=== PATIENT | male | born 1965 | race Caucasian/White ===

== ENCOUNTER 2019-09-18 15:35 | Outpatient (CLI) | payer BC, SELFPAY ==
[2019-09-18 15:58] LABS: Basophils % 0.5 %; Eosinophils # 0.1 10^3/uL (0.0-0.8); Eosinophils % 1.6 %; Hematocrit 42.3 % (42.0-52.0); Hemoglobin 14.4 g/dL (11.7-16.6); Lymphocytes # 1.2 10^3/uL (0.8-4.8); Lymphocytes % 21.9 %; Mean Corpuscular Hemoglobin 31.4 pg (28.0-34.0); Mean Corpuscular Volume 92.4 fL (80-94); Mean Platelet Volume 9.8 fL (7.4-10.4); Monocytes # 0.4 10^3/uL (0.2-0.9); Monocytes % 7.1 %; Neutrophils # 3.9 10^3/uL (1.8-7.7); Neutrophils % 68.7 %; Nucleated Red Blood Cells % 0 %; Platelet Count 167 10^3/cmm (130-400); Red Blood Count 4.58 10^6/uL (4.1-5.3); Red Cell Distribution Width 11.9 % (12.1-15.1); White Blood Count 5.6 10^3/uL (4.0-10.0)
[2019-09-18 16:39] LABS: Anion Gap 15.6 (5-19); Blood Urea Nitrogen 12 mg/dL (6-20); Calcium 9.8 mg/Dl (8.6-10.0); Carbon Dioxide 28 mmol/L (22-29); Chloride 101 mmol/L (98-107); Glomerular Filtration Rate 175.3 mL/min (90-130); Glucose 272 mg/dL (74-109); Iron 63 ug/dL (59-158); Percent Saturation 19.5 % (20-50); Potassium 3.6 mmol/L (3.5-5.1); Sodium 141 mmol/L (136-145); Thyroid Stimulating Hormone 0.17 uIU/mL (0.27-4.20); Total Iron Binding Capacity 322 mg/dL; Unsaturated Iron Binding 259 ug/dL (112-347); Vitamin B12 1211 pg/mL (232-1245)
[2019-09-18 17:39] LABS: Folate Level 9.8 ng/mL (4.5-32.2)
== END 2019-09-18 15:36 | disposition home or self-care (01) ==
PROVIDERS: Family Provider Internal Medicine; PCP Internal Medicine; Visit Provider Internal Medicine
DX: C15.9 Malignant neoplasm of esophagus, unspecified (principal); D50.9 Iron deficiency anemia, unspecified; E03.9 Hypothyroidism, unspecified
CPT/HCPCS: 36415; 80048; 82607; 82746; 83540; 83550; 84443; 85025

== ENCOUNTER → 2019-10-02 10:02 | Outpatient (BNVA) | payer BC, SELFPAY | PROVIDERS: Family Provider Internal Medicine; PCP Internal Medicine; Visit Provider Urology | DX: B37.49 Other urogenital candidiasis (principal); R33.9 Retention of urine, unspecified; N30.80 Other cystitis without hematuria | CPT/HCPCS: 81001 ==

== ENCOUNTER → 2019-10-14 10:59 | Outpatient (BNVA) | payer BC, SELFPAY | PROVIDERS: Family Provider Internal Medicine; PCP Internal Medicine; Visit Provider Urology | DX: N30.80 Other cystitis without hematuria (principal); N20.9 Urinary calculus, unspecified; B37.49 Other urogenital candidiasis | CPT/HCPCS: 81001 ==

== ENCOUNTER → 2019-11-13 08:16 | Outpatient (BNVA) | payer BC, SELFPAY | PROVIDERS: Family Provider Internal Medicine; PCP Internal Medicine; Visit Provider Urology | DX: N30.80 Other cystitis without hematuria (principal); N20.0 Calculus of kidney; B37.49 Other urogenital candidiasis; R33.9 Retention of urine, unspecified | CPT/HCPCS: 81001 ==

== ENCOUNTER → 2019-12-17 15:51 | Outpatient (BNVA) | payer BC, SELFPAY | PROVIDERS: Family Provider Internal Medicine; PCP Internal Medicine; Visit Provider Nurse Practitioner Family | DX: N30.80 Other cystitis without hematuria (principal) | CPT/HCPCS: 80053; 87086; 87106 ==

== ENCOUNTER → 2020-01-14 09:07 | Outpatient (BNVA) | payer BC, SELFPAY | PROVIDERS: Family Provider Internal Medicine; PCP Internal Medicine; Visit Provider Urology | DX: N30.80 Other cystitis without hematuria (principal); B37.49 Other urogenital candidiasis; E11.9 Type 2 diabetes mellitus without complications; N20.0 Calculus of kidney | CPT/HCPCS: 81001 ==

== ENCOUNTER → 2020-02-18 08:08 | Outpatient (BNVA) | payer BC, SELFPAY | PROVIDERS: Family Provider Internal Medicine; PCP Internal Medicine; Visit Provider Urology | DX: N30.80 Other cystitis without hematuria (principal); N20.0 Calculus of kidney; B37.49 Other urogenital candidiasis; E11.9 Type 2 diabetes mellitus without complications | CPT/HCPCS: 81001 ==

== ENCOUNTER 2020-02-24 05:57 | Day surgery (SDC) | payer BC, SELFPAY ==
[2020-02-21 12:56] VITALS: BMI 29.3
[2020-02-24] VITALS (9 sets, daily range): BP systolic 146–157; BP diastolic 84–98; PULSE 55–80; RESP 16–20; TEMP 36.2; O2SAT 94–99
--- NOTE | 2020-02-24 | SCC_ITS ---
Procedure Done: Placement of PowerPort in the left subclavian vein 47.1 seconds of fluoroscopic guidance, for a cumulative dose of 7.37 mGy, was provided to Dr. Giron by the radiology department. C-arm images of the chest were saved for the patient's permanent record. [facility]
[2020-02-24] MEDS: sodium chloride 0.9% 1,000 ML 30 ML IV (06:23)
[2020-02-24 06:25] LABS: Glucose Point of Care 111 mg/dL (70-110)
--- NOTE | 2020-02-24 06:26 | ANES.PREANE2 ---
Pre-Anesthetic Assessment Pre-Anesthetic Assessment: Height/Weight: Height 1.91 m Weight 106.594 kg Temp Pulse Resp BP Pulse Ox 97.2 F L 55 L 18 152/97 96 02/24/20 06:10 02/24/20 06:10 02/24/20 06:10 02/24/20 06:10 02/24/20 06:10 Preop Diagnosis: Esophageal cancer Proposed Procedure: Operation Date: 02/24/20 07:00 Proposed Procedures p Portacath Placement 22874 Z85.01(Not Applicable) - Michael Giron MD Last intake: Intake Last Liquid Date 02/23/20 Last Liquid Time 23:30 Last Solid Date 02/23/20 Last Solid Time 23:30 Social: Social History: No alcohol and No tobacco Exam: Pre-Anes Outpt Exam: alert, oriented x 3, clear to auscultation bilaterally and regular rate & rhythm Airway: Submandibular: WNL Cervical ROM: WNL MP: 2 Dentition: Other (teeth ok) History/ROS: No significant history except as noted Pulmonary: Pulmonary: Sleep apnea CV/HEM: CV/HEM: HTN : : UTI Hepatic: Hepatic: None reported GI: GI: GERD Comments: esophageal ca Metabolic: Metabolic: DM and Hyperlipidemia Musc/skel: Musc/skel: None reported Neuropsych: Neuropsych: Anxiety and Depression Anesthetic Plan: ASA status: 3 Anesthesia: Anesthesia Evaluation and MAC Risk of > 500 ml blood loss (7ml/kg in children): No Meds/Allergies Current Medications: Current Medications Generic Name Dose Route Start Last Admin Trade Name Freq PRN Reason Stop Dose Admin Sodium Chloride 1,000 mls @ 30 ml s/hr 02/24/20 06:15 02/24/20 06:23 Sodium Chloride 0.9% IV 02/25/20 06:14 30 mls/hr .Q24H ROSAS Administration PFSH Anesthesia PFSH: Medical History Acquired hypothyroidism Calcium urolithiasis Candidal UTI (urinary tract infection) Cystitis cystica Diabetes mellitus Esophageal cancer BOTTOM 1/3 OF ESOPHAGUS REMOVED Essential (primary) hypertension Hypertriglyceridemia Hypogonadism Incomplete bladder emptying Microcytic anemia YARED on CPAP Reactive depression Renal calculus, right Surgical History H/O: vasectomy History of esophageal surgery removal of part of esophagus History of esophagogastroduodenoscopy (EGD) Hx of colonoscopy S/P cataract surgery S/P ureteral stent placement ESWL S/P wrist surgery Family History Father Heart disease Mother Hypertension Recurrent urinary tract infection Dementia Other Diabetes Social History Smoking and tobacco status: never smoked Quit status (tobacco): not considering quitting Alcohol intake: never Adopted: No Caregiver/support person: No Lives independently: No Household members: spouse Housing: House Marital status: Current occupational status: employed History of recent travel: No Data Anesthesia Other Labs: Laboratory Results - last 48 hr 02/24/20 06:22 POC Glucose 111 Cardiac Studies: No Data to Display
--- NOTE | 2020-02-24 07:13 | SC_ITS ---
NOTE: Report was unsigned for reason: Order was edited. Original Signature date and time was: 02/24/2020 @0830 WS: [id number] C-ARM RADIOGRAPHS CHEST; 5 IMAGES HISTORY: port placement COMPARISON: None available. Intraoperative imaging during Port-A-Cath placement. LEFT subclavian Port-A-Cath with tip in the distal SVC. MTD SC/C-arm FL for Pacemaker IMPRESSION: Intraoperative imaging during Port-A-Cath placement.
--- NOTE | 2020-02-24 07:29 | W.PM.OPSUD ---
Surgery/Procedure H&P Update DATE OF PROCEDURE: February 24, 2020 DATE H&P PERFORMED: 02/21/20 H&P UPDATE INFORMATION: I have reviewed H&P completed within last 30 days, I have examined patient prior to procedure and No changes to prior documentation PREOP DIAGNOSIS: Esophageal cancer PLANNED PROCEDURE: Operation Date: 02/24/20 07:00 Proposed Procedures p Portacath Placement 04872 Z85.01(Not Applicable) - Michael Giron MD
[2020-02-24] MEDS: lidocaine 1% INJ 20 mL IM (07:57)
[2020-02-24] MEDS: heparin, porcine 1,000 unit/mL INJ 10 mL 10000 UNIT INJECTION (07:58)
--- NOTE | 2020-02-24 08:24 | P.OP_ITS ---
Operative Report Date of procedure: February 24, 2020 Pre-op Diagnosis: Esophageal cancer Post-op diagnosis: same Procedure Done: Placement of PowerPort in the left subclavian vein Fluoroscopic guidance and interpretation for placement of catheter Pathology: none sent Surgeon: Michael Giron Anesthesia: General Estimated blood loss (mL): 10 Condition: stable Disposition: PACU Procedure: The patient was taken to the Operating Room and the chest and neck bilaterally were prepped and draped in a sterile manner after the antibiotic had been administered and shoulder rolls had been placed. A total of 10 mL of 1% lidocaine with 0.5% Marcaine was infiltrated under the clavicle on the left side at the site of the planned entry into the subclavian vein. An introducer needle was then used to access the subclavian vein under the clavicle and after with drawing blood syringe was removed and a guidewire passed under fluoroscopy into the superior vena cava. The site of the planned port was then marked on the chest and a 15 blade was used to make a 3 cm skin incision this was extended into the subcutaneous tissue using electrocautery and a subcutaneous pocket over the pectoralis fascia was created 2-0 Vicryl suture was used to suture the port to the pectoral fascia in the pocket on 3 sides. The catheter, after having been flushed with hep saline, was attached to the tunneler and a tunnel created between the port site and the subclavian vein en try site. Under fluoroscopy the dilator sheath was passed over the guidewire into the proximal superior vena cava. The inner dilator was removed and the sheath left behind and~ the catheter was introduced through the peel-away sheath with the tip in the superior vena cava. The peel-away sheath was removed. The proximal end of the catheter was cut to the right size and was attached to the port. Using a Mackenzie needle the port was accessed, it withdrew blood easily and flushed easily. A final 5cc of heparin was used to flush the PowerPort. The subcutaneous tissue was approximated using interrupted 3-0 Vicryl sutures and the skin at the introducer site and the port site was closed using subcuticular running 4-0 Monocryl sutures. Surgical glue was applied and the patient was stable throughout the procedure. Fluoroscopic guidance and interpretation was performed for introduction of the guidewire in the left subclavian vein, passage of dilator and placement of catheter tip in the distal superior vena cava.
--- NOTE | 2020-02-24 08:30 | SUR.PHASEI ---
0882 PT TO PACU SLEEPY WITH GOOD RESP , AWAKES TO VOICE BUT QUICKLY BACK TO SLEEP, VSS
--- NOTE | 2020-02-24 08:35 | SUR.PHASEI ---
PT MORE AWAKE, VERBALLY DENIES PAIN AND NAUSEA, VSS PT NOW ON RA TRIAL.
== END 2020-02-24 09:19 | disposition home or self-care (01) ==
PROVIDERS: PCP Internal Medicine; Visit Provider Surgery
PROC: (CPT 36561; principal; 2020-02-24 07:00)
DX: C15.9 Malignant neoplasm of esophagus, unspecified (principal); I10 Essential (primary) hypertension; K21.9 Gastro-esophageal reflux disease without esophagitis; E11.9 Type 2 diabetes mellitus without complications; E78.5 Hyperlipidemia, unspecified; E03.9 Hypothyroidism, unspecified; G47.33 Obstructive sleep apnea (adult) (pediatric); Z79.82 Long term (current) use of aspirin; Z79.4 Long term (current) use of insulin
CPT/HCPCS: 36561; 12345; 36416; 76000; 77001; 82962; C1788; J0330; J0690; J1644; J2001; J2250; J2405; J2704; J2765; J3010; J3490; J7030

== ENCOUNTER 2020-02-25 10:59 | Outpatient (CLI) | payer BC, SELFPAY ==
--- NOTE | 2020-02-26 07:31 | ONC FU_ITS ---
Dr. Kearns Patient Follow-Up Note Patient: Ricky Flores Unit #: [id number]: [id number] Dicatated By: Jurgen Kearns M.D.Date of Visit:Feb 25, 2020 Onc Med Follow-up/Prog Note Chief Complaint: Esophageal cancer. History of Present Illness: This is a 54 year-old man with well-differentiated adenocarcinoma of the distal esophagus, initially stage IIIB (ypT3, ypN1, M0), but with subsequent progression to stage IV (M1). He had presented with iron deficiency anemia and weight loss. He underwent EGD and colonoscopy on 06/15/2018. The colonoscopy showed 2 small sessile polyps in the mid transverse colon, both of which were removed endoscopically. The EGD showed a circumferential and partially obstructing, large size, malignant appearing mass in the lower third esophagus. The stomach and duodenum appeared unremarkable. Biopsy of the esophageal mass showed well-differentiated infiltrating adenocarcinoma with papillary histologic pattern. The colon showed adenomatous polyp fragments. Staging CT scans of the chest, abdomen, and pelvis on 06/15/2018 showed increased soft tissue thickening suggested at the level of the gastroesophageal junction, estimated at 5 cm in width and 4 cm in depth. There was mild thickening of the wall of the distal esophagus. A superior right paratracheal lymph node measured 1.9 x 2.8 cm. The abdomen showed 2 adjacent perigastric lymph nodes near the greater curvature, located between the stomach and pancreas, measuring 1.7 and 2.2 cm. There was no other intra-abdominal or retroperitoneal adenopathy noted, and there was no evidence of other metastatic disease. Staging PET/CT on 06/23/2018 showed a 3 cm hypermetabolic segment of the distal esophagus with SUV 15.0, consistent with primary malignancy. A 2.2 cm gastrohepatic lymph node had SUV 4.1, consistent with local metastatic disease. There was no evidence for other metastatic involvement. The superior right paratracheal lymph node was noted to be FDG negative, consistent with benign disease. He underwent definitive treatment through the [facility]. His treatment included neoadjuvant chemoradiation utilizing weekly carboplatin/Taxol followed by Mike Rusty esophagectomy on 10/30/2018. I do not have the complete pathology report available, but the final staging was IIIB (ypT3, ypN1, M0). He was then followed on observation/expectant management. His other medical illnesses include hypertension, hypertriglyceridemia, type II diabetes, hypothyroidism, androgen deficiency, obstructive sleep apnea, degenerative arthritis, and glaucoma. He also has history of diverticulitis and a history of recurrent episodes of nephrolithiasis. His other surgeries include cataract excision from the left eye, carpal tunnel release on the left, vasectomy, and extracorporeal shockwave lithotripsy. He underwent right total hip arthroplasty on 07/29/2019. He is a non-smoker, but he had chewed tobacco for 35 years, estimated 2 to 3 cans/day. He does not drink alcohol. INTERIM HISTORY: His surveillance CT scans of the chest, abdomen, and pelvis at [facility] [[email or web address]] on 01/15/2020 showed interval development of an 8 mm pulmonary nodule in the left major fissure and a 1.1 cm left lower lobe medial basal segment nodule, concerning for metastatic disease. A few other smaller nodules measuring 3 mm or less were also seen in the left lower lobe. There was interval enlargement of the right upper paratracheal lymph node measuring 2 cm. He then underwent EBUS with FNA biopsy of the right paratracheal lymph node on 02/05/2020. Pathology showed metastatic adenocarcinoma consistent with esophageal primary. He had medical oncology follow-up with Dr. Kulwant Knight on 02/13/2020. He was recommended to undergo placement of Port-A-Cath venous access device and to begin a course of chemotherapy with modified FOLFOX. A [facility] One next generation sequencing study also was requested, and those results are not yet available. Repeat PET/CT on 02/22/2020 showed interval development of 2 malignant lymph nodes, the dominant lesion in the right paratracheal area measuring 2.9 cm with SUV 6.8. The second was a lesion in the right cervical level IV territory measuring 2.6 x 1.6 cm, SUV 4.0. There were no other sites of abnormal FDG uptake on that study. He is seen now for follow-up, as he would like to continue his further treatment locally if possible. He says he feels fine. His energy is not bad, and he pretty much has normal activity. His ECOG score is 0. He does not eat as much as he used to, but he has had a weight gain in the range of 25 pounds compared to his lowest point after surgery. He does not have fever or night sweats. He has just occasional cough. He does not have shortness of breath or chest pain. He has had to sleep upright since his esophagectomy, and he does get acid reflux if he falls off his pillow. He has no other GI complaints, and he has no complaints with bladder function. He does have some joint pain, mainly in the hands. His hip has not been bothering him since the surgery. He does not complain of headache or dizziness, and he has no focal neurologic symptoms. Medications: Bystolic 1 Tablet (of 10 mg) Oral daily, Jardiance 1 Tablet (of 25 mg) Oral daily, Levothyroxine Sodium 1 Tablet (of 200 mcg) Oral daily, MetFORMIN HCl 1 Tablet (of 1000 mg) Oral b.i.d., Nitrofurantoin Macrocrystal 1 Capsule (of 100 mg) Oral b.i.d., Pantoprazole Sodium 1 Tablet (of 40 mg) Tablet, enteric coated Oral daily, Tamsulosin HCl 1 Cartridge (of 0.4 mg) Capsule Oral b.i.d., Timolol Maleate Solution Ophthalmic, Ultra [place] 3 1 Capsule (of 952 mg) Oral daily Allergies: Morphine Sulfate Review of Systems: Constitutional - His energy is not bad. He has pretty much normal activity. He does not eat as much as he used to, but he has gained about 25 pounds from his lowest point after surgery. He does not have fever or night sweats. ECOG score is 0, ENMT - No sinus congestion/drainage. No mouth sores. No sore throat or difficulty swallowing, Hematologic/Lymphatic - No abnormal bruising or bleeding, Respiratory - No shortness of breath. He has just occasional cough. No pleuritic pain or hemoptysis, Cardiovascular - No angina pain. No palpitations, Gastrointestinal - No nausea or vomiting. He has heartburn if he falls off his pillow at night. No diarrhea or constipation. No blood in the stool or black stools, Genitourinary (M) - No dysuria or hematuria. No urinary frequency. No urgency or incontinence, Musculoskeletal - He has some joint pain, mainly in the hands, Integumentary - No skin complications, Neurologic - No headache or dizziness. No numbness or tingling. No other focal neurologic symptoms, Psychiatric - He has some anxiety/depression. No insomnia. Vital Signs: Performed on Feb 25, 2020 11:32 Height - 75.00 in Weight - 237.0 lbs (LOW) BSA - 2.36 sq.m BMI - 29.62 Temperature - 97.8 F (LOW) Pulse - 57 /min (LOW) Respiration - 24 /min BP - 171/90 mm(hg) (HIGH) O2 Sat - 96 % Pain - 0 Physical Examination: Constitutional - He looks good generally, Eyes - Sclerae nonicteric. Conjunctivae clear, ENMT - No lesions noted in the oral cavity, Hematologic/Lymphatic - No cervical, clavicular, or axillary adenopathy, Respiratory - Lungs are clear with good air movement bilaterally, Cardiovascular - Heart rhythm is regular. There is no murmur, gallop or rub noted, Abdomen - Soft and non-tender. Liver and spleen are not enlarged. There is no abdominal mass or ascites noted and there is no inguinal adenopathy, Extremities - No edema, Neurologic - No focal neurologic deficits noted. Impression: 1. Patient with well differentiated infiltrating adenocarcinoma involving the lower third of the esophagus, initially stage IIIB (ypT3, ypN1, M0), but with subsequent progression to stage IV (M1), with involvement in the right paratracheal lymph node confirmed by EBUS/FNA biopsy on 02/05/2020. 2. His previous treatment included neoadjuvant chemoradiation utilizing weekly carboplatin/Taxol followed by Mike Rusty esophagectomy on 10/30/2018. His other medical illnesses include: 3. Hypertension. 4. Hyperlipidemia. 5. Type II diabetes. 6. Obstructive sleep apnea. 7. Degenerative arthritis. 8. He has posttraumatic glaucoma of the left eye. 9. He has a history of recurrent episodes of nephrolithiasis. 10. He has a history of diverticulitis. Plan: I will review the PET/CT with the radiologist and I also request this from [facility] [[email or web address]] for review. However, with documented metastatic involvement in the right paratracheal lymph node and suspected involvement in a right level IV cervical lymph node, some form of systemic therapy will be the appropriate treatment. Specific recommendations will be determined on the basis of the [facility] study, results of which should be available within the next week. Signed By: Jurgen Kearns M.D. <<Signature on File>>
== END 2020-02-25 11:00 | disposition home or self-care (01) ==
LOC: ONCMED 11:02
PROVIDERS: PCP Internal Medicine; Visit Provider Internal Medicine Medical Oncology
DX: C15.5 Malignant neoplasm of lower third of esophagus (principal); C77.1 Secondary and unspecified malignant neoplasm of intrathoracic lymph nodes; I10 Essential (primary) hypertension; E78.5 Hyperlipidemia, unspecified; E11.9 Type 2 diabetes mellitus without complications; G47.33 Obstructive sleep apnea (adult) (pediatric); M19.90 Unspecified osteoarthritis, unspecified site; Z92.21 Personal history of antineoplastic chemotherapy; Z92.3 Personal history of irradiation
CPT/HCPCS: 99215

== ENCOUNTER 2020-03-11 11:21 | Outpatient (CLI) | payer BC, SELFPAY | END 2020-03-11 11:22 | disposition home or self-care (01) | LOC: ONCMED 11:24 | PROVIDERS: PCP Internal Medicine; Visit Provider Internal Medicine Medical Oncology | DX: C15.5 Malignant neoplasm of lower third of esophagus (principal); I10 Essential (primary) hypertension; E78.5 Hyperlipidemia, unspecified; E11.9 Type 2 diabetes mellitus without complications; G47.33 Obstructive sleep apnea (adult) (pediatric); M19.90 Unspecified osteoarthritis, unspecified site; H40.89 Other specified glaucoma; N20.0 Calculus of kidney; K57.92 Diverticulitis of intestine, part unspecified, without perforation or abscess without bleeding | CPT/HCPCS: 36415 ==

== ENCOUNTER 2020-03-31 06:50 | Outpatient (RCR) | payer BC, SELFPAY ==
--- NOTE | 2020-03-27 20:39 | ONC FU_ITS ---
Dr. Kearns Patient Follow-Up Note Patient: Ricky Flores Unit #: [id number]: [id number] Dicatated By: Jurgen Kearns M.D.Date of Visit:Mar 27, 2020 Onc Med Follow-up/Prog Note Chief Complaint: Esophageal cancer. History of Present Illness: This is a 54 year-old man with well-differentiated adenocarcinoma of the distal esophagus, initially stage IIIB (ypT3, ypN1, M0), but with subsequent progression to stage IV (M1). He had presented with iron deficiency anemia and weight loss. He underwent EGD and colonoscopy on 06/15/2018. The colonoscopy showed 2 small sessile polyps in the mid transverse colon, both of which were removed endoscopically. The EGD showed a circumferential and partially obstructing, large size, malignant appearing mass in the lower third esophagus. The stomach and duodenum appeared unremarkable. Biopsy of the esophageal mass showed well-differentiated infiltrating adenocarcinoma with papillary histologic pattern. The colon showed adenomatous polyp fragments. Staging CT scans of the chest, abdomen, and pelvis on 06/15/2018 showed increased soft tissue thickening suggested at the level of the gastroesophageal junction, estimated at 5 cm in width and 4 cm in depth. There was mild thickening of the wall of the distal esophagus. A superior right paratracheal lymph node measured 1.9 x 2.8 cm. The abdomen showed 2 adjacent perigastric lymph nodes near the greater curvature, located between the stomach and pancreas, measuring 1.7 and 2.2 cm. There was no other intra-abdominal or retroperitoneal adenopathy noted, and there was no evidence of other metastatic disease. Staging PET/CT on 06/23/2018 showed a 3 cm hypermetabolic segment of the distal esophagus with SUV 15.0, consistent with primary malignancy. A 2.2 cm gastrohepatic lymph node had SUV 4.1, consistent with local metastatic disease. There was no evidence for other metastatic involvement. The superior right paratracheal lymph node was noted to be FDG negative, consistent with benign disease. He underwent definitive treatment through the [facility]. His treatment included neoadjuvant chemoradiation utilizing weekly carboplatin/Taxol followed by Mike Rusty esophagectomy on 10/30/2018. I do not have the complete pathology report available, but the final staging was IIIB (ypT3, ypN1, M0). He was then followed on observation/expectant management. His other medical illnesses include hypertension, hypertriglyceridemia, type II diabetes, hypothyroidism, androgen deficiency, obstructive sleep apnea, degenerative arthritis, and glaucoma. He also has history of diverticulitis and a history of recurrent episodes of nephrolithiasis. His other surgeries include cataract excision from the left eye, carpal tunnel release on the left, vasectomy, and extracorporeal shockwave lithotripsy. He underwent right total hip arthroplasty on 07/29/2019. He is a non-smoker, but he had chewed tobacco for 35 years, estimated 2 to 3 cans/day. He does not drink alcohol. INTERIM HISTORY: His surveillance CT scans of the chest, abdomen, and pelvis at [facility] on 01/15/2020 showed interval development of an 8 mm pulmonary nodule in the left major fissure and a 1.1 cm left lower lobe medial basal segment nodule, concerning for metastatic disease. A few other smaller nodules measuring 3 mm or less were also seen in the left lower lobe. There was interval enlargement of the right upper paratracheal lymph node measuring 2 cm. He then underwent EBUS with FNA biopsy of the right paratracheal lymph node on 02/05/2020. Pathology showed metastatic adenocarcinoma consistent with esophageal primary. He had medical oncology follow-up with Dr. Kulwant Knight on 02/13/2020. He was recommended to undergo placement of Port-A-Cath venous access device and to begin a course of chemotherapy with modified FOLFOX. A [facility] next generation sequencing study also was requested, biut there was insufficient material available to complete the study. A repeat PET/CT on 02/22/2020 showed interval development of 2 malignant lymph nodes, the dominant lesion in the right paratracheal area measuring 2.9 cm with SUV 6.8. The second was a lesion in the right cervical level IV territory measuring 2.6 x 1.6 cm, SUV 4.0. There were no other sites of abnormal FDG uptake on that study. I had seen for a followup visit on 02/25/2020. At that point I had requested a [facility] One next generation sequencing study by liquid biopsy. Those results have just become availabe. 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 There were no actionable mutations reported. He is seen now to discuss treatment options. Medications: Bystolic 1 Tablet (of 10 mg) Oral daily, Fluconazole 1 Tablet (of 100 mg) Oral daily, Gabapentin 1 Capsule (of 300 mg) Oral b.i.d., Glimepiride 1 Tablet (of 4 mg) Oral b.i.d., HumaLOG 200 Units (of 100 Units/mL) Subcutaneous PRN, Lantus 40 Units (of 100 Units/mL) Subcutaneous daily, Levothyroxine Sodium 1 Tablet (of 175 mcg) Oral daily, Nitrofurantoin Macrocrystal 1 Capsule (of 100 mg) Oral daily, Pantoprazole Sodium 1 Tablet (of 40 mg) Tablet, enteric coated Oral daily, Tamsulosin HCl 1 Cartridge (of 0.4 mg) Capsule Oral b.i.d., Timolol Maleate 1 Drop(s) (of 0.5 %) Solution Ophthalmic daily Allergies: Morphine Sulfate Vital Signs: Performed on Mar 27, 2020 10:23 Height - 75.00 in Weight - 233.2 lbs (LOW) BSA - 2.34 sq.m BMI - 29.15 Temperature - 97.7 F (LOW) Pulse - 64 /min Respiration - 18 /min BP - 160/80 mm(hg) (HIGH) O2 Sat - 96 % Pain - 0 Impression: 1. Patient with well differentiated infiltrating adenocarcinoma involving the lower third of the esophagus, initially stage IIIB (ypT3, ypN1, M0), but with subsequent progression to stage IV (M1), with involvement in the right paratracheal lymph node confirmed by EBUS/FNA biopsy on 02/05/2020. 2. His previous treatment included neoadjuvant chemoradiation utilizing weekly carboplatin/Taxol followed by Mike Rusty esophagectomy on 10/30/2018. His other medical illnesses include: 3. Hypertension. 4. Hyperlipidemia. 5. Type II diabetes. 6. Obstructive sleep apnea. 7. Degenerative arthritis. 8. He has posttraumatic glaucoma of the left eye. 9. He has a history of recurrent episodes of nephrolithiasis. 10. He has a history of diverticulitis. His staging PET/CT showed uptake in the known involved right paratracheal lymph node and an additional area of uptake in a right cervical level IV territory node measuring 2.6 x 1.6 cm, SUV 4.0. His next generation sequencing study by liquid biopsy showed no actionable mutations. Plan: I reviewed the PET/CT results and we discussed the clinical implications. In the absence of a targetable mutation, the standard treatment would be a trial of second line chemotherapy. I would use a modified FOLFOX regimen, as previously recommended, or oxaliplatin/Xeloda. I reviewed anticipated side effects with the chemotherapy, including the expected neuropathy with oxaliplatin. He questions whether there may still be an option for local therapy, with either surgery or radiation. While surgery is clearly not an option, I would consider radiation to the involved area if it would be technically feasible from the standpoint of not overlapping his previous radiation field. To that end I will plan to review the PET/CT with the radiation oncologist and I will arrange for a referral if deemed appropriate. In the meantime, I also will check into availability of clinical trial for any of his reported mutations. Face to face time with patient was more than 30 minutes, greater than 50% spent in counseling/discussion. Signed By: Jurgen Kearns M.D. <<Signature on File>>
--- NOTE | 2020-03-31 | CT_ITS ---
Radiation Therapy Planning CT images; total exam DLP: 1491.45 mGy-cm MTDD
--- NOTE | 2020-03-31 18:27 | N.ONRAD NP_ITS ---
Radiation Oncology New Patient Visit Patient: Ricky Flores MR#: [id number] : 1965 Age: 54 Sex: Male Dictated by: Dr. Fiedl Coronado Date of Service: 03/30/2020 Referring Physician(s): Dr. Kearns Diagnosis: C15.5 - malignant neoplasm of lower third of esophagus, Diagnosed 02/25/2020 (active), stage x, t3(yp), n1(yp), m0, g1 and C77.1 - secondary and unspecified malignant neoplasm of intrathoracic lymph nodes, Diagnosed 02/25/2020 (active). 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 He was initially treated with neoadjuvant chemoradiation therapy using weekly carbotaxol concurrent with radiation to a total dose of 50.4 Gy in 28 fractions followed by [facility] Esophagectomy (10/30/2018). The patient has biopsy-proven disease persistence in a mediastinal 2R node, FDG avid disease in the right level 4 neck as well as the 2R node (PET/CT 02/22/2020). A CT of the chest completed one month prior to the PET/CT revealed concern for an 8 mm nodule in the left major fissure, an 1.1 cm nodule in the left medial basal segment and a few sub centimeter nodules in the posterior basal left lower lobe, but radiotracer was not observed in these areas. Planned future radiographic surveillance in addition to 2R and right neck level IV: Watch for nodules in the left major fissure, left medial basal segment, and posterior left lower lobe. Purpose of Visit: Discuss the role of further radiotherapy with palliative or curative intent. 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 He was initially treated with neoadjuvant chemoradiation therapy using weekly carbotaxol concurrent with radiation to a total dose of 50.4 Gy in 28 fractions followed by [facility] Esophagectomy (10/30/2018). Pathology revealed residual grade 2 adenocarcinoma in the proximal stomach and distal esophagus invading through muscularis propria and into adventitia, focal large vessel invasion, 2 out of 10 lymph nodes positive, positive lymphovascular invasion, no perineural invasion, margins negative yet closest focus was 1.1 mm from the radial margin, HP Malissa negative, & next generation sequencing showed no actionable mutations A follow-up CT of the chest (01/15/2020 versus 04/26/2019) revealed: -) Interval growth of a right upper paratracheal lymph node (from 1.6 cm to 2 cm); -) Interval development of an 8 mm nodule along the left major fissure and interval development of a 1.1 cm nodule in the left medial basal segment; -) And a few new smaller nodules measuring less than 3 mm in the posterior basal left lower lobe. During primary treatment an indeterminate 2R paratracheal lymph node was observed. When this lymph node progressed, a subsequent EBUS with biopsy of the 2R lymph node (02/05/2020) revealed metastatic carcinoma consistent with esophageal primary. A subsequent PET/CT (02/22/2020) revealed FDG avidity within the right upper paratracheal lymph node, and within the lymph node in the right level 4 neck. No other abnormal radiotracer uptake was observed. He is being seen today to discuss radiotherapy options to treat persistent tumor in the 2R lymph node as well as the right level 4 neck. He has recently seen Dr. Kearns who has considered a modified FOLFOX regimen, or oxaliplatin/Xeloda, or Radiation therapy alone. The patient desires to be aggressive, and he requested that we swing for the fences . I reviewed the prior radiation therapy plan from [facility] and there should be no field overlap if careful IMRT planning is executed. In consultation today, the patient has no complaints. Imaging Review: I reviewed the radiographic images discussed above. Current Medications: Bystolic, fluconazole, gabapentin, glimepiride, humaLOG, lantus, levothyroxine Sodium, nitrofurantoin Macrocrystal, pantoprazole Sodium, tamsulosin HCl, timolol Maleate. Allergies: Morphine Sulfate. Medical History: - Anemia, - degenerative arthritis, - diverticulitis, - glaucoma of the left eye, - hypertension, - hypertriglyceridemia, - hypogonadism, - hypothyroidism, - obstructive sleep apnea, - renal calculi, - type II diabetes. No history of collagen vascular disease. No previous radiation therapy. Surgical History: Cataract excision left eye, eGD and colonoscopy on 06/15/2018, extracorporeal shockwave lithotripsy x 2 in 2011, left carpal tunnel release and vasectomy. Family History: Father is alive having experienced heart disease. Mother is alive. Brother is alive. Brother is alive. Brother is alive. Father has heart disease and is still living at age 87. Mother still living and in good health at age 82. Two brothers have diabetes, and one also has heart disease. Social History: Last screened on 03/27/2020 - Never smoked. Last screened on 03/27/2020 - Never drank. Patient indicated use of the following products: chewing tobacco. Current Complaints / Review of Systems: Constitutional - Complains of lack of appetite. Complains of moderate fatigue. Denies fever, night sweats and change in weight. Eyes - Denies blurred vision and double vision. ENMT - Complains of tinnitus. Denies dysphagia, ear pain, mouth dryness, stomatitis and altered taste. Neck - Denies neck pain and decreased range of motion. Integumentary - Denies rash. Cardiovascular - Denies arrhythmias, chest pain and edema. Respiratory - Denies cough, dyspnea and wheezing. Gastrointestinal - Denies abdominal pain, constipation, diarrhea, heartburn / dyspepsia, melena / GI bleeding, nausea and vomiting. Genitourinary (M) - Denies dysuria, frequency, nocturia and urgency. Musculoskeletal - Complains of joint pain generalized all over. Hands are the worse. Complains of generalized muscle weakness. Denies bone pain. Neurologic - Denies dizziness, abnormal gait and headaches. Endocrine - Complains of Type 2 diabetes. Complains of hypothyroidism. Hematologic/Lymphatic - Denies tender or enlarged lymph nodes.. Vital Signs: Performed on 03/30/2020 2:42 PM BMI - 29.198 kg/m2 (high), Height - 75.00 in, Weight - 233.6 lbs, Temperature - 98.2 f, Pulse - 58, Respiration - 18, O2 Sat - 96 %, Pain - 0 and BP - 154/ 93 mm(hg)(high). Physical Exam: GENERAL:??? The patient is alert, and in no acute distress. HEENT:??? Head is normocephalic. Face is symmetric. External ocular movements are intact. Sclera and conjunctivae are non erythematous. NECK:??? Trachea is midline.??? Thyroid is not enlarged by palpation.??? LYMPH NODES:??? There is no palpable cervical, or supraclavicular, adenopathy bilaterally. LUNGS:??? Clear to auscultation bilaterally. Respiratory movement is unlabored. HEART:??? Regular rate and rhythm. ABDOMEN:??? Soft, nontender, without palpable mass.??? No hepatosplenomegaly. EXTREMITIES:??? No deformities. NEUROLOGIC:??? Gait and station are normal.??? The patient is well coordinated and strength is equal bilaterally. CORE EXTRUDER:??? Cranial nerves II-XII are intact and without focal deficits.??? Psych: Affect is normal. Skin: Cursory review of the skin reveals no obvious lesions concerning for malignancy. Performance Status: 0 - Fully active, able to carry on all predisease activities without restrictions. (ECOG) Pathology: Primary, c15.5 - malignant neoplasm of lower third of esophagus, Diagnosed 02/25/2020 (active) stage x, t3(yp), n1(yp), m0, g1 and Primary, c77.1 - secondary and unspecified malignant neoplasm of intrathoracic lymph nodes, Diagnosed 02/25/2020 (active). Lab: Imaging: See HPI Pain assessment: This patient???s pain was personally assessed by me. This patient requires no adjustments to pain medications at this time. 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 He is status post neoadjuvant chemoradiation therapy followed by [place] [facility]y Esphagectomy (10/2018). The patient has disease persistence in a biopsy proven 2R mediastinal lymph node (not previously treated with radiation) as well as FDG avid right neck level IV adenopathy. He also has radiographic concern for nodules in the left lung, but these were not FDG avid and are thus being closely monitored. Treatment options include systemic options including modified FOLFOX or oxaliplatin/Xeloda, or radiation alone. The patient has an excellent performance status and he desires to be very aggressive. Given the fact that radiation gonzalez do not overlap, and the previous plan demonstrated a planned summation dose of Lung V20 ~ 10%, and bilateral Mean Lung Dose of 6 Gy, we could indeed give high dose palliative radiation therapy for the benefit of local control. We discussed the treatment goals of radiotherapy, alternatives to treatment, prognosis with and without radiation therapy, radiation treatment logistics, and potential acute and late side effects in detail. The patient verbalized understanding of the risks/benefits of radiotherapy and the patient has agreed to proceed as recommended. Therefore the plan is: -) High dose palliation with the intent to render the patient with no evidence of disease for a local control benefit. -) I plan to prescribe a total dose of 50.4 Gy in 28 fractions vs 60 Gy in 30 fractions as tolerated by the patient while respecting normal tissue constraints and accounting for prior dose. Following treatment he may be considered for further systemic therapy. Signed by: 03/31/2020 6:26:34 PM <<Signature on File>> CPT Code: CPT Code:
== END 2020-04-03 23:59 | disposition home or self-care (01) ==
LOC: ONCMED 06:50
PROVIDERS: PCP Internal Medicine; Visit Provider Radiology Radiation Oncology
DX: C15.5 Malignant neoplasm of lower third of esophagus (principal); C77.8 Secondary and unspecified malignant neoplasm of lymph nodes of multiple regions; Z45.2 Encounter for adjustment and management of vascular access device; D50.9 Iron deficiency anemia, unspecified; I10 Essential (primary) hypertension; E78.1 Pure hyperglyceridemia; E11.9 Type 2 diabetes mellitus without complications; E03.9 Hypothyroidism, unspecified; G47.33 Obstructive sleep apnea (adult) (pediatric); M19.90 Unspecified osteoarthritis, unspecified site; H40.9 Unspecified glaucoma; F17.220 Nicotine dependence, chewing tobacco, uncomplicated; Z79.4 Long term (current) use of insulin; Z87.442 Personal history of urinary calculi; Z96.641 Presence of right artificial hip joint; Z92.3 Personal history of irradiation
CPT/HCPCS: 77300; 77301; 77334; 77338; 96523; 99214; 99215; Q9967

== ENCOUNTER → 2020-04-24 11:40 | Outpatient (BNVA) | payer BC, SELFPAY | PROVIDERS: PCP Internal Medicine; Visit Provider Internal Medicine | DX: Z01.812 Encounter for preprocedural laboratory examination (principal) | CPT/HCPCS: 87635 ==

== ENCOUNTER 2020-05-04 05:38 | Outpatient (RCR) | payer BC, SELFPAY ==
--- NOTE | 2020-04-30 | CT_ITS ---
WS: [id number] CT CHEST TECHNIQUE: Contrast enhanced CT of the chest with coronal and sagittal reformatted images. CLINICAL INFORMATION: LEFT MEDIAL BASAL SEGMENT LUNG NODULE COMPARISON: Multiple prior examinations including PET CT February 22, 2020, CT January 15, 2020, CT 04/26/2019 and 01/22/2019. DLP: 1027.[address] scans at [facility] use at least one of these dose optimization techniques: automat ed exposure control; mA and/or kV adjustment per patient size (includes targeted exams where dose is matched to clinical indication); or iterative reconstruction. FINDINGS: Prior postoperative changes of esophagectomy with gastric pull-through. Mild chronic emphysematous ch anges. Patchy groundglass opacities in right lower lobe laterally extending into the super segment ri ght lower lobe. Additional hazy atelectasis in right lower lobe medially. Slight subsegmental atelect asis in the left lower lobe. No focal pneumonia. No pleural fluid. Noncalcified nodular opacity in the left lower lobe medially on the prior outside CT January 15, 2020 has essentially resolved. Only a tiny trace of residual opacity in this area measuring 3 mm Masslike right peritracheal lymphadenopathy measuring 3.8 x 2.7 cm with mild mass effect on the thora cic trachea. Previously on the PET CT February 22, 2020 this measures approximately 2.7 x 2.5 cm. This ap pears progressed today. Prominent left hilar lymph node measuring 12 mm appears unchanged since the p rior PET/CT. A few incidental calcified anterior mediastinal lymph nodes. Proximal main pulmonary arteries are normal. Normal caliber thoracic aorta. No axillary lymphadenopat hy. Diffuse fatty infiltration the liver. Fatty atrophy of the pancreas. Upper abdominal aorta is nor mal. Adrenal glands are normal. Normal thoracic spine. CT/CT chest w con* [id number] IMPRESSION: 1. Prior postoperative changes projecting with gastric pull-through. 2. Masslike right peritracheal lymphadenopathy measuring 3.8 x 2.7 cm with mil d mass effect on the thoracic trachea. Previously on the PET CT February 22, 2020 t his measures approximately 2.7 x 2.5 cm. This appears slightly progressed today . 3. Prominent left hilar lymph node measuring 12 mm appears unchanged since the PET/CT February 22, 2020. 4. Fibrotic appearing nodule in the left lower lobe medially on the outside CT January 15, 2020 has essentially resolved, described above. 5. Patchy hazy groundglass opacities in the right lower lobe likely infectious or inflammatory. 6. Subsegmental atelectasis in the lung bases.
--- NOTE | 2020-04-30 | CT_ITS ---
WS: [id number] CT NECK TECHNIQUE: Contrast-enhanced CT of the neck with coronal and sagittal reformatted images. CLINICAL INFORMATION: METASTATIC ESOPHAGEAL CANCER COMPARISON: Multiple prior examinations including PET CT February 22, 2020 DLP: 843.[address] scans at [facility] use at least one of these dose optimization techniques: automat ed exposure control; mA and/or kV adjustment per patient size (includes targeted exams where dose is matched to clinical indication); or iterative reconstruction. FINDINGS: History of esophageal cancer with gastric pull-through. Heterogeneously enhancing masslike right para tracheal lymphadenopathy also described on the chest CT. Mild mass effect on the trachea. This measur es 3.8 x 2.6 cm with heterogeneous enhancement. Prominent left hilar lymph node measuring 12 mm. Right supraclavicular lymphadenopathy measuring 3.5 x 1.8 CM. Mass effect on the jugular vein. This m easured 2.6 x 1.9 CM on the prior PET/CT. Associated heterogeneous enhancement. Normal parotid glands. Normal submandibular glands. No upper cervical chain lymphadenopathy. Normal t ongue base. Normal parapharyngeal fat. No evidence of supraglottic or glottic mass. Subglottic airway is normal. Normal thyroid gland. Mastoid air cells are well aerated. Retention cyst left maxillary s inus with polypoid mucosal thickening. Partially visualized intracranial contents are normal. CT/CT neck w con* [id number] IMPRESSION: 1. Large heterogeneous enhancing right supraclavicular lymph node progressed s karon the PET/CT measuring 3.5x1.8 cm 2. Masslike right paratracheal lymphadenopathy mild mass effect on the thoraci c trachea described on the chest CT with heterogeneous enhancement slightly pro gressed since PET/CT. 3. Prominent left hilar lymph node also described on the chest CT today measur ing 12 mm x 20 mm AP by transverse. This appears stable since the prior PET/CT. 4. Normal salivary glands. 5. No other cervical lymphadenopathy. 6. No evidence of supraglottic or glottic mass. 7. Prior esophagectomy with gastric pull-through.
[2020-04-30] MEDS: iohexol 300 mg/mL 100 mL Btl IV ×2 (11:28→11:29)
== END 2020-05-04 23:59 | disposition home or self-care (01) ==
LOC: ONCMED 05:38
PROVIDERS: PCP Internal Medicine; Visit Provider Radiology Radiation Oncology
DX: Z51.0 Encounter for antineoplastic radiation therapy (principal); C15.5 Malignant neoplasm of lower third of esophagus; C77.1 Secondary and unspecified malignant neoplasm of intrathoracic lymph nodes
CPT/HCPCS: 70491; 71260; 77386

== ENCOUNTER 2020-06-03 05:45 | Outpatient (RCR) | payer BC, SELFPAY ==
--- NOTE | 2020-05-06 15:38 | ONCRAD TMN_ITS ---
Radiation Oncology Weekly Treatment Management Patient: Sandra García MR#: [id number] : 1965 Age: 54 Sex: Male Dictated by: Dr. Fidel Coronado Date of Service: 05/06/2020 Referring Physician(s) : Dr. Felipe Luna Telehealth Progress Note The patient has been informed that the visit may not be secure and acknowledged the information. I have explained the option of participating in a telephone or video visit during the [facility] [place] [address] emergency to the patient.??? After being given an opportunity to ask questions about and discuss this type of visit, the patient verbally consented to proceeding with the telephone/video visit.??? the patient understands that this service replaces an office visit and they may be billed and /or responsible for any applicable copayments. 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 He was initially treated with neoadjuvant chemoradiation therapy using weekly carbotaxol concurrent with radiation to a total dose of 50.4 Gy in 28 fractions followed by [facility]y Esophagectomy (10/30/2018). The patient has biopsy-proven disease persistence in a mediastinal 2R node, FDG avid disease in the right level 4 neck as well as the 2R node (PET/CT 02/22/2020). A CT of the chest completed one month prior to the PET/CT revealed concern for an 8 mm nodule in the left major fissure, an 1.1 cm nodule in the left medial basal segment and a few sub centimeter nodules in the posterior basal left lower lobe, but radiotracer was not observed in these areas. Planned future radiographic surveillance in addition to 2R and right neck level IV: Watch for nodules in the left major fissure, left medial basal segment, and posterior left lower lobe. Esophageal cancer. Planned Additional Radiation: High dose palliation for an opportunity to render the patient with no evidence of disease. We will treat the FDG avid 2R apryl station and right level IV apryl station to a total dose of 60 Gy/30 fractions. Radiotherapy to date: Course: Neck nodes 60Gy, Treatment Site: Neck 30FX, Ref. ID: [id number], Energy: 15X/6X, Dose/Fx (cGy): 200, #Fx: , Dose Correction (cGy): 0, Total Dose (cGy): 400, Start Date: 05/04/2020, Elapsed Days: 1 Reason for visit: The patient is being seen today as part of their regularly scheduled weekly on treatment visits to assess for acute toxicities from radiotherapy. Interim History: The patient reports no side effects from treatment thus far. He has no complaints, and he says that he feels good. Current Medications: Bystolic, fluconazole, gabapentin, glimepiride, humaLOG, lantus, levothyroxine Sodium, nitrofurantoin Macrocrystal, pantoprazole Sodium, tamsulosin HCl, timolol Maleate. Allergies: Morphine Sulfate. Performance Status: 0 - Fully active, able to carry on all predisease activities without restrictions. (ECOG) Lab: None pending in Radiation Oncology. Imaging: Radiation therapy imaging related to accurate target localization (i.e. KV, MV and CBCT) was reviewed. Appropriate changes, if any, were made to ensure treatment accuracy. Plan: The patient is tolerating therapy reasonably well. Radiotherapy will continue as planned. CPT: 07101 Signed by: Dr. Fidel Coronado 05/06/2020 3:38:09 PM
--- NOTE | 2020-05-13 21:27 | N.ONRAD NP_ITS ---
Radiation Oncology Weekly Treatment Management Patient: Sandra García MR#: [id number] : 1965 Age: 54 Sex: Male Dictated by: Dr. Fidel Coronado Date of Service: 05/13/2020 Referring Physician(s) : Dr. Felipe Luna Telehealth Progress Note The patient has been informed that the visit may not be secure and acknowledged the information. I have explained the option of participating in a telephone or video visit during the COVID-19 [facility] emergency to the patient.??? After being given an opportunity to ask questions about and discuss this type of visit, the patient verbally consented to proceeding with the telephone/video visit.??? the patient understands that this service replaces an office visit and they may be billed and /or responsible for any applicable copayments. 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 He was initially treated with neoadjuvant chemoradiation therapy using weekly carbotaxol concurrent with radiation to a total dose of 50.4 Gy in 28 fractions followed by [facility] Rusty Esophagectomy (10/30/2018). The patient has biopsy-proven disease persistence in a mediastinal 2R node, FDG avid disease in the right level 4 neck as well as the 2R node (PET/CT 02/22/2020). A CT of the chest completed one month prior to the PET/CT revealed concern for an 8 mm nodule in the left major fissure, an 1.1 cm nodule in the left medial basal segment and a few sub centimeter nodules in the posterior basal left lower lobe, but radiotracer was not observed in these areas. Planned future radiographic surveillance in addition to 2R and right neck level IV: Watch for nodules in the left major fissure, left medial basal segment, and posterior left lower lobe. Esophageal cancer. Planned Additional Radiation: High dose palliation for an opportunity to render the patient with no evidence of disease. We will treat the FDG avid 2R apryl station and right level IV apryl station to a total dose of 60 Gy/30 fractions. *Note. The timing from simulation to initiation of ???additional radiation??? was complicated by COVID-19 positivity in the patient. This caused a delay of ~ 1 month while COVID-19 precautions were implemented within the [facility] and to ensure that the patient???s symptoms did not warrant a hospital admission. Given the patient???s manageable COVID-19 symptoms, and after a repeat pretreatment CT demonstrated no interval growth in metastasis aside from known disease, it was decided to initiate radiotherapy as planned. The repeat pretreatment CT was fused to the simulation data set and it was determined that the interval growth of disease was encompassed within the originally planned radiation field, thus no XRT planning adjustments were needed. Radiotherapy to date: Course: Neck nodes 60Gy, Treatment Site: Neck 30FX, Ref. ID: [id number], Energy: 15X/6X, Dose/Fx (cGy): 200, #Fx: , Dose Correction (cGy): 0, Total Dose (cGy): 1,400, Start Date: 05/04/2020, Elapsed Days: 9 Reason for visit: The patient is being seen today as part of their regularly scheduled weekly on treatment visits to assess for acute toxicities from radiotherapy. Interim History: The patient reports mild fatigue and a mild dry cough. He reports no fevers or chills and he is tolerating radiotherapy well. He has minimal swallowing difficulties. Current Medications: Bystolic, fluconazole, gabapentin, glimepiride, humaLOG, hYDROcodone-Acetaminophen, lantus, levothyroxine Sodium, mouthwash Compounding Base, nitrofurantoin Macrocrystal, pantoprazole Sodium, tamsulosin HCl, timolol Maleate. Allergies: Morphine Sulfate. Performance Status: 0 - Fully active, able to carry on all predisease activities without restrictions. (ECOG) Lab: None pending in Radiation Oncology. Imaging: Radiation therapy imaging related to accurate target localization (i.e. KV, MV and CBCT) was reviewed. Appropriate changes, if any, were made to ensure treatment accuracy. Plan: The patient is tolerating therapy reasonably well. Radiotherapy will continue as planned. CPT: 92975 Signed by: Dr. Fidel Coronado 05/13/2020 9:26:33 PM
--- NOTE | 2020-05-27 16:20 | N.ONRAD NP_ITS ---
Radiation Oncology Weekly Treatment Management Patient: Sandra García MR#: [id number] : 1965 Age: 54 Sex: Male Dictated by: Dr. Fidel Coronado Date of Service: 05/27/2020 Referring Physician(s) : Dr. Felipe Luna Telehealth Progress Note The patient has been informed that the visit may not be secure and acknowledged the information. I have explained the option of participating in a telephone or video visit during the [facility]-[address] [place] [address] emergency to the patient.??? After being given an opportunity to ask questions about and discuss this type of visit, the patient verbally consented to proceeding with the telephone/video visit.??? the patient understands that this service replaces an office visit and they may be billed and /or responsible for any applicable copayments. 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 He was initially treated with neoadjuvant chemoradiation therapy using weekly carbotaxol concurrent with radiation to a total dose of 50.4 Gy in 28 fractions followed by [place] [facility] Esophagectomy (10/30/2018). The patient has biopsy-proven disease persistence in a mediastinal 2R node, FDG avid disease in the right level 4 neck as well as the 2R node (PET/CT 02/22/2020). A CT of the chest completed one month prior to the PET/CT revealed concern for an 8 mm nodule in the left major fissure, an 1.1 cm nodule in the left medial basal segment and a few sub centimeter nodules in the posterior basal left lower lobe, but radiotracer was not observed in these areas. Planned future radiographic surveillance in addition to 2R and right neck level IV: Watch for nodules in the left major fissure, left medial basal segment, and posterior left lower lobe. Planned Additional Radiation: High dose palliation for an opportunity to render the patient with no evidence of disease. We will treat the FDG avid 2R apryl station and right level IV apryl station to a total dose of 60 Gy/30 fractions. Radiotherapy to date: Course: Neck nodes 60Gy Treatment Site: Neck 30FX, Ref. ID: [id number], Energy: 15X/6X, Dose/Fx (cGy): 200, #Fx: , Dose Correction (cGy): 0, Total Dose (cGy): 3,200, Start Date: 05/04/2020, Elapsed Days: 22 Reason for visit: The patient is being seen today as part of their regularly scheduled weekly on treatment visits to assess for acute toxicities from radiotherapy. Interim History: The patient has no complaints aside from mild fatigue, and hoarseness of voice. Current Medications: Bystolic, fluconazole, gabapentin, glimepiride, humaLOG, hYDROcodone-Acetaminophen, lantus, levothyroxine Sodium, mouthwash Compounding Base, nitrofurantoin Macrocrystal, pantoprazole Sodium, tamsulosin HCl, timolol Maleate. Allergies: Morphine Sulfate. Performance Status: 0 - Fully active, able to carry on all predisease activities without restrictions. (ECOG) Lab: None pending in Radiation Oncology. Imaging: Radiation therapy imaging related to accurate target localization (i.e. KV, MV and CBCT) was reviewed. Appropriate changes, if any, were made to ensure treatment accuracy. Plan: The patient is tolerating therapy reasonably well. Radiotherapy will continue as planned. CPT: 69419 Signed by: Dr. Fidel Coronado 05/27/2020 4:19:11 PM
--- NOTE | 2020-06-04 11:42 | ONCRAD TMN_ITS ---
Radiation Oncology Weekly Treatment Management Patient: Sandra García MR#: [id number] : 1965 Age: 54 Sex: Male Dictated by: Dr. Fidel Coronado Date of Service: 06/02/2020 Referring Physician(s) : Dr. Felipe Luna Diagnosis: C15.5 - Malignant neoplasm of lower third of esophagus, Diagnosed 02/25/2020 (Active) Stage X, T3(yp), N1(yp), M0, G1 C77.1 - Secondary and unspecified malignant neoplasm of intrathoracic lymph nodes, Diagnosed 02/25/2020 (Active) Telehealth Progress Note The patient has been informed that the visit may not be secure and acknowledged the information. I have explained the option of participating in a telephone or video visit during the [facility]-[address] [place] [address] emergency to the patient.??? After being given an opportunity to ask questions about and discuss this type of visit, the patient verbally consented to proceeding with the telephone/video visit.??? the patient understands that this service replaces an office visit and they may be billed and /or responsible for any applicable copayments. 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 He was initially treated with neoadjuvant chemoradiation therapy using weekly carbotaxol concurrent with radiation to a total dose of 50.4 Gy in 28 fractions followed by [place] Rusty Esophagectomy (10/30/2018). The patient has biopsy-proven disease persistence in a mediastinal 2R node, FDG avid disease in the right level 4 neck as well as the 2R node (PET/CT 02/22/2020). A CT of the chest completed one month prior to the PET/CT revealed concern for an 8 mm nodule in the left major fissure, an 1.1 cm nodule in the left medial basal segment and a few sub centimeter nodules in the posterior basal left lower lobe, but radiotracer was not observed in these areas. Planned future radiographic surveillance in addition to 2R and right neck level IV: Watch for nodules in the left major fissure, left medial basal segment, and posterior left lower lobe. Planned Additional Radiation: High dose palliation for an opportunity to render the patient with no evidence of disease. We will treat the FDG avid 2R apryl station and right level IV apryl station to a total dose of 60 Gy/30 fractions. Radiotherapy to date: Course: Neck nodes 60Gy, Treatment Site: Neck 30FX, Ref. ID: [id number], Energy: 15X/6X, Dose/Fx (cGy): 200, #Fx: , Dose Correction (cGy): 0, Total Dose (cGy): 4,200, Start Date: 05/04/2020, Elapsed Days: 28 Reason for visit: The patient is being seen today as part of their regularly scheduled weekly on treatment visits to assess for acute toxicities from radiotherapy. Interim History: The patient reports no significant side effects from treatment thus far. He reports no complaints. Current Medications: Bystolic, fluconazole, gabapentin, glimepiride, humaLOG, hYDROcodone-Acetaminophen, lantus, levothyroxine Sodium, mouthwash Compounding Base, nitrofurantoin Macrocrystal, pantoprazole Sodium, tamsulosin HCl, timolol Maleate. Allergies: Morphine Sulfate. Performance Status: 0 - Fully active, able to carry on all predisease activities without restrictions. (ECOG) Lab: None pending in Radiation Oncology. Imaging: Radiation therapy imaging related to accurate target localization (i.e. KV, MV and CBCT) was reviewed. Appropriate changes, if any, were made to ensure treatment accuracy. Plan: The patient is tolerating therapy reasonably well. Radiotherapy will continue as planned. CPT: 03582 Signed by: Dr. Fidel Coronado 06/04/2020 11:41:34 AM
== END 2020-06-03 23:59 | disposition home or self-care (01) ==
LOC: ONCMED 05:45
PROVIDERS: Absent Provider Internal Medicine Medical Oncology; PCP Internal Medicine; Visit Provider Radiology Radiation Oncology
DX: Z51.0 Encounter for antineoplastic radiation therapy (principal); C15.5 Malignant neoplasm of lower third of esophagus; C77.1 Secondary and unspecified malignant neoplasm of intrathoracic lymph nodes; Z45.2 Encounter for adjustment and management of vascular access device
CPT/HCPCS: 77336; 77386; 96523

== ENCOUNTER 2020-06-15 05:30 | Outpatient (RCR) | payer BC, SELFPAY ==
[2020-06-05 13:59] LABS: Basophils % 0.2 %; Eosinophils # 0.1 10^3/uL (0.0-0.8); Eosinophils % 1.7 %; Hematocrit 45.8 % (42.0-52.0); Hemoglobin 15.6 g/dL (11.7-16.6); Lymphocytes # 0.6 10^3/uL (0.8-4.8); Lymphocytes % 9.1 %; Mean Corpuscular HGB Conc 34.1 g/dL (30.0-36.0); Mean Corpuscular Hemoglobin 31.1 pg (28.0-34.0); Mean Corpuscular Volume 91.2 fL (80-94); Monocytes # 0.6 10^3/uL (0.2-0.9); Monocytes % 9.9 %; Neutrophils # 4.78 10^3/uL (1.8-7.7); Neutrophils % 78.8 %; Nucleated Red Blood Cells % 0 %; Platelet Count 163 10^3/cmm (130-400); Red Blood Count 5.02 10^6/uL (4.1-5.3); Red Cell Distribution Width 13.1 % (12.1-15.1); White Blood Count 6.1 10^3/uL (4.0-10.0)
[2020-06-05 14:38] LABS: Alanine Aminotransferase 14 U/L (0-41); Albumin Level 4.3 g/dL (3.5-5.2); Alkaline Phosphatase 87 IU/L (40-130); Anion Gap 13.9 (5-19); Aspartate Amino Transferase 16 U/L (0-40); Blood Urea Nitrogen 17 mg/dL (6-20); Calcium 9.6 mg/dL (8.5-10.5); Carbon Dioxide 26 mmol/L (22-29); Chloride 100 mmol/L (98-107); Chol HDL Ratio 4.55 mg/dL (1.0-5.00); Cholesterol 132 mg/dL (0-200); Globulin 2.4 g/dL (1.3-4.6); Glomerular Filtration Rate 141.5 mL/min (90-130); Glucose 145 mg/dL (65-115); HDL Cholesterol 29 mg/dL (60-100); LDL Cholesterol Calculated 68 mg/dL (50-129); LDL HDL Ratio 2.34 RATIO (0.00-3.22); Osmolality Calculated 286 mOsm/kg (285-295); Potassium 3.9 mmol/L (3.5-5.1); Sodium 136 mmol/L (136-145); Total Bilirubin 0.5 mg/dL (0.15-1.2); Total Protein 6.7 g/dL (6.6-8.7); Triglycerides 175 mg/dL (0-150)
[2020-06-05 14:59] LABS: Thyroid Stimulating Hormone 0.23 uIU/mL (0.27-4.20)
--- NOTE | 2020-06-11 10:51 | ONCRAD TMN_ITS ---
Radiation Oncology Weekly Treatment Management Patient: Ricky Flores MR#: [id number] : 1965 Age: 54 Sex: Male Dictated by: Dr. Fidel Coronado Date of Service: 06/11/2020 Referring Physician(s) : Dr. Felipe Luna Telehealth Progress Note The patient has been informed that the visit may not be secure and acknowledged the information. I have explained the option of participating in a telephone or video visit during the [facility]-[address] [place] [address] emergency to the patient.??? After being given an opportunity to ask questions about and discuss this type of visit, the patient verbally consented to proceeding with the telephone/video visit.??? the patient understands that this service replaces an office visit and they may be billed and /or responsible for any applicable copayments. 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 He was initially treated with neoadjuvant chemoradiation therapy using weekly carbotaxol concurrent with radiation to a total dose of 50.4 Gy in 28 fractions followed by [place] Rusty Esophagectomy (10/30/2018). The patient has biopsy-proven disease persistence in a mediastinal 2R node, FDG avid disease in the right level 4 neck as well as the 2R node (PET/CT 02/22/2020). A CT of the chest completed one month prior to the PET/CT revealed concern for an 8 mm nodule in the left major fissure, an 1.1 cm nodule in the left medial basal segment and a few sub centimeter nodules in the posterior basal left lower lobe, but radiotracer was not observed in these areas. Planned future radiographic surveillance in addition to 2R and right neck level IV: Watch for nodules in the left major fissure, left medial basal segment, and posterior left lower lobe. Planned Additional Radiation: High dose palliation for an opportunity to render the patient with no evidence of disease. We will treat the FDG avid 2R apryl station and right level IV apryl station to a total dose of 60 Gy/30 fractions. Radiotherapy to date: Course: Neck nodes 60Gy, Treatment Site: Neck 30FX, Ref. ID: [id number], Energy: 15X/6X, Dose/Fx (cGy): 200, #Fx: 27 / 30, Dose Correction (cGy): 0, Total Dose (cGy): 5,400, Start Date: 05/04/2020, Elapsed Days: 37 Reason for visit: The patient is being seen today as part of their regularly scheduled weekly on treatment visits to assess for acute toxicities from radiotherapy. Interim History: The patient reports mild odynophagia which he is managing with miracle mouthwash. Aside from that he reports no complaints. Current Medications: Bystolic, fluconazole, gabapentin, glimepiride, humaLOG, hYDROcodone-Acetaminophen, lantus, levothyroxine Sodium, mouthwash Compounding Base, nitrofurantoin Macrocrystal, pantoprazole Sodium, tamsulosin HCl, timolol Maleate. Allergies: Morphine Sulfate. Performance Status: 0 - Fully active, able to carry on all predisease activities without restrictions. (ECOG) Lab: None pending in Radiation Oncology. Imaging: Radiation therapy imaging related to accurate target localization (i.e. KV, MV and CBCT) was reviewed. Appropriate changes, if any, were made to ensure treatment accuracy. Plan: The patient is tolerating therapy reasonably well. Radiotherapy will continue as planned. CPT: 26361 Signed by: Dr. Fidel Coronado 06/11/2020 10:49:08 AM
== END 2020-07-04 23:59 | disposition home or self-care (01) ==
LOC: ONCMED 05:30
PROVIDERS: Absent Provider Internal Medicine Medical Oncology; PCP Internal Medicine; Visit Provider Radiology Radiation Oncology
DX: Z51.0 Encounter for antineoplastic radiation therapy (principal); C15.5 Malignant neoplasm of lower third of esophagus; C77.1 Secondary and unspecified malignant neoplasm of intrathoracic lymph nodes
CPT/HCPCS: 36591; 77336; 77386; 80053; 80061; 84443; 85025

== ENCOUNTER 2020-07-20 08:06 | Outpatient (CLI) | payer BC, SELFPAY ==
--- NOTE | 2020-07-20 08:14 | CTR_ITS ---
PROCEDURE INFORMATION: Exam: CT Chest With Contrast Exam date and time: 07/20/2020 8:25 AM Age: 54 years old Clinical indication: Condition or disease; Lung condition and disease; Cancer of the lung; Unspecified; Primary cancer: Peritracheal cancer; Prior surgery; Surgery type: Esophageal hip; Patient HX: Which lung is affected is not specified by the ordering DrLuly I am unsure if it is bilateral or not; Additional info: Restaging evaluation-lung cancer TECHNIQUE: Imaging protocol: Computed tomography of the chest with intravenous contrast. Radiation optimization: All CT scans at this facility use at least one of these dose optimization techniques: automated exposure control; mA and/or kV adjustment per patient size (includes targeted exams where dose is matched to clinical indication); or iterative reconstruction. Contrast material: OMNI 300; Contrast volume: 95 ml; Contrast route: INTRAVENOUS (IV); COMPARISON: CT chest abd pel w con* 01/15/2020 3:58 PM RADIATION DOSE METRICS: Total DLP (mGy-cm): 3378.05 FINDINGS: Tubes, catheters and devices: Left central venous catheter tip in the superior vena cava. Lungs: Unremarkable. No consolidation. No masses. Pleural space: No pleural effusion. No pneumothorax. Heart: No cardiomegaly. No pericardial effusion. Mediastinal space: The trachea is minimally deviated to the left. Esophagectomy, gastric pull-through. Aorta: No aortic aneurysm. Lymph nodes: Right paratracheal mass/adenopathy increased since 01/15/2020, approximately 4 cm maximum short axis diameter. No significant hilar adenopathy. Bones/joints: No acute findings. Soft tissues: Unremarkable. IMPRESSION: Right paratracheal mass/adenopathy increased since 01/15/2020, increasing tracheal displacement. PROCEDURE INFORMATION: Exam: CT Abdomen And Pelvis With Contrast Exam date and time: 07/20/2020 8:25 AM Age: 54 years old Clinical indication: Condition or disease; Lung condition and disease; Cancer of the lung; Unspecified; Primary cancer: Peritracheal cancer; Prior surgery; Surgery type: Esophageal hip; Patient HX: Which lung is affected is not specified by the ordering DrLuly I am unsure if it is bilateral or not; Additional info: Restaging evaluation-lung cancer TECHNIQUE: Imaging protocol: Computed tomography of the abdomen and pelvis with intravenous contrast. Radiation optimization: All CT scans at this facility use at least one of these dose optimization techniques: automated exposure control; mA and/or kV adjustment per patient size (includes targeted exams where dose is matched to clinical indication); or iterative reconstruction. Contrast material: OMNI 300; Contrast volume: 95 ml; Contrast route: INTRAVENOUS (IV); COMPARISON: CT chest abd pel w con* 01/15/2020 3:58 PM RADIATION DOSE METRICS: Total DLP (mGy-cm): 3378.05 FINDINGS: Liver: No mass. Gallbladder and bile ducts: Unremarkable. No ductal dilation. Pancreas: No acute findings. No ductal dilation. Spleen: Normal. No splenomegaly. Adrenal glands: Normal. No mass. Kidneys and ureters: Bilateral renal calculi. No hydronephrosis or solid mass. Stomach and bowel: Status post esophagectomy and gastric pull-through. No bowel distention or definite mucosal thickening. Appendix: No evidence of appendicitis. Intraperitoneal space: Unremarkable. No free air. No significant fluid collection. Vasculature: No abdominal aortic aneurysm. Lymph nodes: No significant adenopathy. Urinary bladder: Partially obscured. Underdistended, probable wall thickening. Reproductive: Unremarkable as visualized. Partially obscured. Bones/joints: Right hip replacement, metallic artifact. Soft tissues: Unremarkable. CT/CT chest abd pel w con* IMPRESSION: No metastasis or acute findings. Radiation Dose CTDIVOL = (mGy): DLP = 3378.05~3378.05 (mGy-cm)
[2020-07-20] MEDS: iohexol 300 mg/mL 50 mL Btl PO (08:53)
[2020-07-20] MEDS: iohexol 300 mg/mL 100 mL Btl IV (09:26)
== END 2020-07-20 08:07 | disposition home or self-care (01) ==
LOC: CT 08:08
PROVIDERS: PCP Internal Medicine; Visit Provider Radiology Radiation Oncology
DX: C15.5 Malignant neoplasm of lower third of esophagus (principal); C77.1 Secondary and unspecified malignant neoplasm of intrathoracic lymph nodes
CPT/HCPCS: 71260; 74177

== ENCOUNTER 2020-07-22 06:16 | Outpatient (RCR) | payer BC, SELFPAY ==
--- NOTE | 2020-07-22 09:11 | ONCRAD EPV_ITS ---
Radiation Oncology Established Patient Note Patient: Ricky Flores MR#: [id number] : 1965> Attending Physician: Curt Ibarra M.D. Date of Service: 07/22/2020 Ricky Flores returned to my office this morning for a routinely scheduled follow-up appointment. He completed radiotherapy in June for the management of his recurrent esophageal cancer. Daily radiotherapy was administered between the dates of May 04, 2020 through June 15, 2020. ???A prescribed dose of 60 Gy was delivered in 30 fractions encompassing 42 elapsed days. On review of systems, the patient denied any constitutional complaints including significant weight loss or fevers of unknown origin. He did not report any gastrointestinal complaints including dysphagia. On physical examination, the patient weighed 231 pounds. The temperature is 98.1???F. His blood pressure was 150/94 mmHg. The pulse was 71 bpm and respiratory rate was 18 breaths per minute. There is no erythema within the treatment portal gonzalez of the neck or upper chest. In summary, the patient returned for a routine post radiotherapy follow-up. A CT performed on July 20, 2020 identified an increase in size of the right para-tracheal lymph node. He will continue follow-up with Medical Oncology and will be evaluated for possible immunotherapy. Signed by: Dr. Curt Ibarra 07/22/2020 9:09:33 AM
--- NOTE | 2020-07-23 08:08 | ONC FU_ITS ---
Dr. Kearns Patient Follow-Up Note Patient: Ricky Flores Unit #: [id number]: 1965 Dicatated By: Jurgen Kearns M.D.Date of Visit:Jul 22, 2020 Onc Med Follow-up/Prog Note Chief Complaint: Esophageal cancer. 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 His disease was stage IIIB (ypT3, ypN1, M0) at initial diagnosis in June 2018, but with subsequent progression to stage IV (M1). He had presented with iron deficiency anemia and weight loss. He underwent EGD and colonoscopy on 06/15/2018. The colonoscopy showed 2 small sessile polyps in the mid transverse colon, both of which were removed endoscopically. The EGD showed a circumferential and partially obstructing, large size, malignant appearing mass in the lower third esophagus. The stomach and duodenum appeared unremarkable. Biopsy of the esophageal mass showed well-differentiated infiltrating adenocarcinoma with papillary histologic pattern. On subsequent evaluation, the tumor was confirmed to be MSI stable. It did show overexpression of HER-2/quoc, 3+ by IHC and amplification ratio by FISH of 1.8 with 7.3 HER-2 copies/cell. Staging CT scans of the chest, abdomen, and pelvis on 06/15/2018 showed increased soft tissue thickening suggested at the level of the gastroesophageal junction, estimated at 5 cm in width and 4 cm in depth. There was mild thickening of the wall of the distal esophagus. A superior right paratracheal lymph node measured 1.9 x 2.8 cm. The abdomen showed 2 adjacent perigastric lymph nodes near the greater curvature, located between the stomach and pancreas, measuring 1.7 and 2.2 cm. There was no other intra-abdominal or retroperitoneal adenopathy noted, and there was no evidence of other metastatic disease. Staging PET/CT on 06/23/2018 showed a 3 cm hypermetabolic segment of the distal esophagus with SUV 15.0, consistent with primary malignancy. A 2.2 cm gastrohepatic lymph node had SUV 4.1, consistent with local metastatic disease. There was no evidence for other metastatic involvement. The superior right paratracheal lymph node was noted to be FDG negative, consistent with benign disease. He underwent definitive treatment through the [facility]. His treatment included neoadjuvant chemoradiation utilizing weekly carboplatin/Taxol followed by [facility] Rusty esophagectomy on 10/30/2018. I do not have the complete pathology report available, but the final staging was IIIB (ypT3, ypN1, M0). He was then followed on observation/expectant management. His other medical illnesses include hypertension, hypertriglyceridemia, type II diabetes, hypothyroidism, androgen deficiency, obstructive sleep apnea, degenerative arthritis, and glaucoma. He also has history of diverticulitis and a history of recurrent episodes of nephrolithiasis. His other surgeries include cataract excision from the left eye, carpal tunnel release on the left, vasectomy, and extracorporeal shockwave lithotripsy. He underwent right total hip arthroplasty on 07/29/2019. He is a non-smoker, but he had chewed tobacco for 35 years, estimated 2 to 3 cans/day. He does not drink alcohol. INTERIM HISTORY: His surveillance CT scans of the chest, abdomen, and pelvis at [facility] on 01/15/2020 showed interval development of an 8 mm pulmonary nodule in the left major fissure and a 1.1 cm left lower lobe medial basal segment nodule, concerning for metastatic disease. A few other smaller nodules measuring 3 mm or less were also seen in the left lower lobe. There was interval enlargement of the right upper paratracheal lymph node measuring 2 cm. He then underwent EBUS with FNA biopsy of the right paratracheal lymph node on 02/05/2020. Pathology showed metastatic adenocarcinoma consistent with esophageal primary. He had medical oncology follow-up with Dr. Kulwant Knight on 02/13/2020. He was recommended to undergo placement of Port-A-Cath venous access device and to begin a course of chemotherapy with modified FOLFOX. A [facility] next generation sequencing study also was requested, biut there was insufficient material available to complete the study. A repeat PET/CT on 02/22/2020 showed interval development of 2 malignant lymph nodes, the dominant lesion in the right paratracheal area measuring 2.9 cm with SUV 6.8. The second was a lesion in the right cervical level IV territory measuring 2.6 x 1.6 cm, SUV 4.0. There were no other sites of abnormal FDG uptake on that study. With insufficient tissue sample available for any additional studies, I had requested a [facility] next generation sequencing study by liquid biopsy. 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 There were no actionable mutations reported. I had been seeing him for a follow-up visit on 03/27/2020. With his disease apparently localized to the right paratracheal and lower right supraclavicular nodes, he was interested in pursuing local/regional treatment, and he then had radiation oncology consultation with Dr. Fidel Coronado. His further management was complicated by development of COVID-19 virus infection, confirmed on 04/13/2020. Restaging chest CT on 04/30/2020 showed masslike right paratracheal lymphadenopathy measuring 3.8 x 2.7 cm with mild mass-effect on the thoracic trachea. It had increased from 2.7 x 2.5 cm on the February PET/CT. A prominent left hilar lymph node measuring 12 mm appeared unchanged. The fibrotic appearing nodule in the left lower lobe on the January 2020 CT appeared to have resolved. Neck CT showed a large heterogeneous enhancing right supraclavicular lymph node measuring 3.5 x 1.8 cm, increased from 2.6 x 1.9 cm on the February PET/CT. He was able to begin radiation to the involved area in the right neck/upper chest on 05/04/2020. He completed treatment on 06/15/2020 to a total dose of [address] scans of the chest, abdomen, and pelvis on 07/20/2020 showed slight increase in the right paratracheal mass/adenopathy, measuring approximately 4 cm in maximum diameter. There was noted to be increasing tracheal displacement, but that was compared to the January 2020 CT scan. He is seen for a follow-up visit. He says he has been feeling okay, though he does get tired. He does not have much activity. ECOG score is 1. His appetite is variable. He has not had fever. He has occasional sweating at night, attributable to high blood sugar. He has a little bit of cough. He does not complain of shortness of breath or chest pain. He has no GI or complaints. He has no significant joint or bone pain. He does not complain of headache or dizziness. He has a little numbness/tingling in his hands and feet. He has some ongoing problems with depression. Medications: Bystolic 1 Tablet (of 10 mg) Oral daily, Fluconazole 1 Tablet (of 100 mg) Oral daily, Gabapentin 1 Capsule (of 300 mg) Oral b.i.d., Glimepiride 1 Tablet (of 4 mg) Oral b.i.d., HumaLOG 200 Units (of 100 Units/mL) Subcutaneous PRN, Lantus 40 Units (of 100 Units/mL) Subcutaneous daily, Levothyroxine Sodium 1 Tablet (of 175 mcg) Oral daily, Nitrofurantoin Macrocrystal 1 Capsule (of 100 mg) Oral daily, Pantoprazole Sodium 1 Tablet (of 40 mg) Tablet, enteric coated Oral daily, Tamsulosin HCl 1 Cartridge (of 0.4 mg) Capsule Oral b.i.d., Timolol Maleate 1 Drop(s) (of 0.5 %) Solution Ophthalmic daily Allergies: Morphine Sulfate Review of Systems: Constitutional - He feels okay, but he says he does get tired. He has not been as active. Appetite is variable. He has not had fever. He occasionally has sweating at night, but he thinks that may be associated with high blood sugar. ECOG score is 1, ENMT - He has occasional sinus drainage. No mouth sores. No sore throat or difficulty swallowing, Hematologic/Lymphatic - No abnormal bruising or bleeding, Respiratory - No shortness of breath. He has a little bit of cough. No pleuritic pain or hemoptysis, Cardiovascular - No angina pain. No palpitations, Gastrointestinal - No nausea or vomiting. No heartburn or acid reflux. No diarrhea or constipation. No blood in the stool or black stools, Genitourinary (M) - No dysuria or hematuria. No urinary frequency. No urgency or incontinence, Musculoskeletal - No joint or bone pain, Integumentary - He had a significant skin eruption associated with his radiation, but that has resolved, Neurologic - No headache or dizziness. He still has some numbness/tingling in his hands and feet. No other focal neurologic symptoms, Psychiatric - No anxiety or depression. No insomnia. Vital Signs: Performed on Jul 22, 2020 08:24 Height - 75.00 in Weight - 230.8 lbs Temperature - 98.1 F Pulse - 71 Respiration - 18 BP - 150/94 mm(hg) (HIGH) O2 Sat - 97 % Pain - 0 Performed on Jul 22, 2020 08:24 BMI - 28.848 kg/m2 (HIGH) Physical Examination: Constitutional - He looks good generally, Eyes - Sclerae nonicteric. Conjunctivae clear, ENMT - No lesions noted in the oral cavity, Hematologic/Lymphatic - No cervical, clavicular, or axillary adenopathy, Respiratory - Lungs are clear with good air movement bilaterally, Cardiovascular - Heart rhythm is regular. There is no murmur, gallop or rub noted, Abdomen - Soft. Liver and spleen are not enlarged. There is no abdominal mass or ascites noted and there is no inguinal adenopathy, Extremities - No edema, Neurologic - No focal neurologic deficits noted. Impression: 1. Patient with well differentiated infiltrating adenocarcinoma involving the lower third of the esophagus, HER-2/quoc positive. He disease was stage IIIB (ypT3, ypN1, M0) at initial diagnosis in June 2018, but with subsequent progression to stage IV (M1), with involvement in the right paratracheal lymph node confirmed by EBUS/FNA biopsy on 02/05/2020. 2. His previous treatment included neoadjuvant chemoradiation utilizing weekly carboplatin/Taxol followed by Mike Rusty esophagectomy on 10/30/2018. His other medical illnesses include: 3. Hypertension. 4. Hyperlipidemia. 5. Type II diabetes. 6. Obstructive sleep apnea. 7. Degenerative arthritis. 8. He has posttraumatic glaucoma of the left eye. 9. He has a history of recurrent episodes of nephrolithiasis. 10. He has a history of diverticulitis. His staging PET/CT showed uptake in the known involved right paratracheal lymph node and an additional area of uptake in a right cervical level IV territory node measuring 2.6 x 1.6 cm, SUV 4.0. His next generation sequencing study by liquid biopsy showed no actionable mutations. With disease localized to right supraclavicular and right paratracheal lymph nodes, he was interested in pursuing local/regional treatment. He had radiation oncology consultation with Dr. Fidel Coronado, and the plan was then to proceed with involved field radiation. His further treatment was complicated by COVID-19 virus infection, from which he had uneventful recovery. His restaging CT scans of the neck and chest on 04/30/2020 did show further progression of the lymphadenopathy, but still with localized involvement. He then began radiation to the right neck/upper chest on 05/04/2020. He completed treatment on 06/15/2020 to a total dose of [address] scans of the chest, abdomen, and pelvis on 07/20/2020 showed progression of right paratracheal adenopathy, but in comparison to his January 2020 CT scan. Plan: I will review the current CT scans with the radiologist for comparison to the April CT scans and the February PET/CT. In the absence of any significant disease progression, we will continue to monitor closely on observation/expectant management. If he does show significant progression, he will proceed to systemic therapy, either with modified FOLFOX/Herceptin or possibly with a chemotherapy/immunotherapy combination. Signed By: Jurgen Kearns M.D. <<Signature on File>>
== END 2020-08-03 23:59 | disposition home or self-care (01) ==
LOC: ONCMED 06:16
PROVIDERS: Absent Provider Radiology Radiation Oncology; PCP Internal Medicine; Visit Provider Internal Medicine Medical Oncology
DX: C15.5 Malignant neoplasm of lower third of esophagus (principal); C77.1 Secondary and unspecified malignant neoplasm of intrathoracic lymph nodes; I10 Essential (primary) hypertension; E78.5 Hyperlipidemia, unspecified; E11.9 Type 2 diabetes mellitus without complications; G47.33 Obstructive sleep apnea (adult) (pediatric); M19.90 Unspecified osteoarthritis, unspecified site; H40.32X0 Glaucoma secondary to eye trauma, left eye, stage unspecified; Z87.441 Personal history of nephrotic syndrome; Z87.19 Personal history of other diseases of the digestive system; Z79.899 Other long term (current) drug therapy
CPT/HCPCS: 99214

== ENCOUNTER 2020-09-01 14:44 | Outpatient (CLI) | payer BC, SELFPAY ==
--- NOTE | 2020-09-01 14:52 | CT_ITS ---
WS: [id number] CT CHEST TECHNIQUE: Contrast enhanced CT of the chest with coronal and sagittal reformatted images. CLINICAL INFORMATION: ESOPHAGEAL CACER COMPARISON: CT 07/20/2020 and 04/30/2020 DLP: 922.[address] scans at [facility] use at least one of these dose optimization techniques: automat ed exposure control; mA and/or kV adjustment per patient size (includes targeted exams where dose is matched to clinical indication); or iterative reconstruction. FINDINGS: History of esophageal cancer with gastric pull-through. Heterogeneously enhancing masslike right para tracheal lymphadenopathy also described on the neck CT. This appears slightly improved compared to previous now measures approximately 2.3 x 2.2 x 3.3 cm com pared to previous measuring 3.8 x 2.6 x 4.6 CM. Mild mass effect on the adjacent trachea. Wall thicke carmella involving the trachea is unchanged in appearance compared to previous. Masslike right supra clavicular lymphadenopathy also slightly improved compared to previous, today me asuring 1.9 x 1.5 x 1.2 CM. This is compared to 1.8 x 3.5 x 1.6 cm previously Previously described 12 mm left hilar lymph node has essentially resolved with no measurable lymph no de. Incidental calcified anterior mediastinal lymph nodes. Normal caliber noncontrast thoracic aorta. No axillary lymphadenopathy. Diffuse fatty infiltration th e liver. CT/CT chest w con* [id number] IMPRESSION: 1. Prior postoperative changes distal esophagectomy with gastric pull-through. 2. Peripherally enhancing necrotic appearing right paratracheal lymphadenopath y measures slightly smaller today. 3. Previously described right supra clavicular lymphadenopathy is persistent a nd slightly improved. 4. Previously described 12 mm left hilar lymph node has resolved. 5. No other significant changes. No evidence of disease progression.
--- NOTE | 2020-09-01 14:53 | CT_ITS ---
WS: [id number] CT NECK TECHNIQUE: Contrast-enhanced CT of the neck with coronal and sagittal reformatted images. CLINICAL INFORMATION: ESOPHAGEAL CANCER COMPARISON: CT April 30, 2020, PET CT February 22, 2020, CT July 20, 2020 DLP: 872.[address] scans at [facility] use at least one of these dose optimization techniques: automat ed exposure control; mA and/or kV adjustment per patient size (includes targeted exams where dose is matched to clinical indication); or iterative reconstruction. FINDINGS: History of esophageal cancer with gastric pull-through. Heterogeneously enhancing masslike right paratracheal lymphadenopathy also described on the chest CT. This appears slightly improved compared to previous now measures approximately 2.3 x 2.2 x 3.3 cm com pared to previous measuring 3.8 x 2.6 x 4.6 CM. Mild mass effect on the adjacent trachea. Masslike right supra clavicular lymphadenopathy also slightly improved compared to previous today radha suring 1.9 x 1.5 x 1.2 CM. This is compared to 1.8 x 3.5 x 1.6 cm. Normal parotid glands. Normal submandibular glands. No upper cervical chain lymphadenopathy. Normal t ongue base. Normal parapharyngeal fat. No evidence of supraglottic or glottic mass. Subglottic airway is normal. Normal thyroid gland. Mastoid air cells are well aerated. Partially visualized intracrani al contents are normal. CT/CT neck w con* [id number] IMPRESSION: 1. Slight interval improvement in the large heterogeneous enhancing right supr a clavicular lymph node today measuring 1.9 x 1.5 x 1.2 CM 2. Slightly improved right paratracheal lymphadenopathy with heterogeneous enh ancement. Mild mass effect on the adjacent trachea. This measures 2.3 x 2.2 x 3 .3 cm 3. No other cervical lymphadenopathy. 4. No evidence of supraglottic or glottic mass. 5. Prior esophagectomy with gastric pull-through.
[2020-09-01] MEDS: iohexol 300 mg/mL 100 mL Btl IV ×2 (15:47→15:53)
== END 2020-09-01 14:45 | disposition home or self-care (01) ==
LOC: RAD 14:49
PROVIDERS: PCP Internal Medicine; Visit Provider Internal Medicine Medical Oncology
DX: C15.5 Malignant neoplasm of lower third of esophagus (principal); Z90.49 Acquired absence of other specified parts of digestive tract; R59.0 Localized enlarged lymph nodes
CPT/HCPCS: 70491; 71260

== ENCOUNTER 2020-09-01 15:00 | Outpatient (RCR) | payer BC, SELFPAY ==
[2020-08-25 10:00] LABS: Basophils % 0.2 %; Eosinophils % 0.4 %; Hematocrit 44.3 % (42.0-52.0); Lymphocytes # 0.4 10^3/uL (0.8-4.8); Lymphocytes % 4.1 %; Mean Corpuscular HGB Conc 33.9 g/dL (30.0-36.0); Mean Corpuscular Hemoglobin 30.6 pg (28.0-34.0); Mean Corpuscular Volume 90.4 fL (80-94); Mean Platelet Volume 9.4 fL (7.4-10.4); Monocytes # 0.8 10^3/uL (0.2-0.9); Monocytes % 7.3 %; Neutrophils # 9.38 10^3/uL (1.8-7.7); Neutrophils % 87.6 %; Nucleated Red Blood Cells % 0 %; Platelet Count 226 10^3/cmm (130-400); Red Cell Distribution Width 12.7 % (12.1-15.1); White Blood Count 10.7 10^3/uL (4.0-10.0)
[2020-08-25 10:14] LABS: Alanine Aminotransferase 9 U/L (0-41); Albumin Level 3.9 g/dL (3.5-5.2); Alkaline Phosphatase 87 IU/L (40-130); Anion Gap 12.5 (5-19); Aspartate Amino Transferase 8 U/L (0-40); Blood Urea Nitrogen 12 mg/dL (6-20); Calcium 9.2 mg/dL (8.5-10.5); Carbon Dioxide 28 mmol/L (22-29); Chloride 95 mmol/L (98-107); Globulin 2.5 g/dL (1.3-4.6); Glomerular Filtration Rate 118.4 mL/min (90-130); Glucose 267 mg/dL (65-115); Osmolality Calculated 283 mOsm/kg (285-295); Potassium 3.5 mmol/L (3.5-5.1); Sodium 132 mmol/L (136-145); Total Bilirubin 0.4 mg/dL (0.15-1.2); Total Protein 6.4 g/dL (6.6-8.7)
--- NOTE | 2020-08-29 10:31 | ONC FU_ITS ---
Dr. Kearns Patient Follow-Up Note Patient: Ricky Flores Unit #: [id number]: [id number] Dicatated By: Jurgen Kearns M.D.Date of Visit:Aug 25, 2020 Onc Med Follow-up/Prog Note Chief Complaint: Esophageal cancer. 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 His disease was stage IIIB (ypT3, ypN1, M0) at initial diagnosis in June 2018, but with subsequent progression to stage IV (M1). He had presented with iron deficiency anemia and weight loss. He underwent EGD and colonoscopy on 06/15/2018. The colonoscopy showed 2 small sessile polyps in the mid transverse colon, both of which were removed endoscopically. The EGD showed a circumferential and partially obstructing, large size, malignant appearing mass in the lower third esophagus. The stomach and duodenum appeared unremarkable. Biopsy of the esophageal mass showed well-differentiated infiltrating adenocarcinoma with papillary histologic pattern. On subsequent evaluation, the tumor was confirmed to be MSI stable. It did show overexpression of HER-2/quoc, 3+ by IHC and amplification ratio by FISH of 1.8 with 7.3 HER-2 copies/cell. Staging CT scans of the chest, abdomen, and pelvis on 06/15/2018 showed increased soft tissue thickening suggested at the level of the gastroesophageal junction, estimated at 5 cm in width and 4 cm in depth. There was mild thickening of the wall of the distal esophagus. A superior right paratracheal lymph node measured 1.9 x 2.8 cm. The abdomen showed 2 adjacent perigastric lymph nodes near the greater curvature, located between the stomach and pancreas, measuring 1.7 and 2.2 cm. There was no other intra-abdominal or retroperitoneal adenopathy noted, and there was no evidence of other metastatic disease. Staging PET/CT on 06/23/2018 showed a 3 cm hypermetabolic segment of the distal esophagus with SUV 15.0, consistent with primary malignancy. A 2.2 cm gastrohepatic lymph node had SUV 4.1, consistent with local metastatic disease. There was no evidence for other metastatic involvement. The superior right paratracheal lymph node was noted to be FDG negative, consistent with benign disease. He underwent definitive treatment through the [facility]. His treatment included neoadjuvant chemoradiation utilizing weekly carboplatin/Taxol followed by [place] esophagectomy on 10/30/2018. I do not have the complete pathology report available, but the final staging was IIIB (ypT3, ypN1, M0). He was then followed on observation/expectant management. His other medical illnesses include hypertension, hypertriglyceridemia, type II diabetes, hypothyroidism, androgen deficiency, obstructive sleep apnea, degenerative arthritis, and glaucoma. He also has history of diverticulitis and a history of recurrent episodes of nephrolithiasis. His other surgeries include cataract excision from the left eye, carpal tunnel release on the left, vasectomy, and extracorporeal shockwave lithotripsy. He underwent right total hip arthroplasty on 07/29/2019. He is a non-smoker, but he had chewed tobacco for 35 years, estimated 2 to 3 cans/day. He does not drink alcohol. INTERIM HISTORY: His surveillance CT scans of the chest, abdomen, and pelvis at [facility] on 01/15/2020 showed interval development of an 8 mm pulmonary nodule in the left major fissure and a 1.1 cm left lower lobe medial basal segment nodule, concerning for metastatic disease. A few other smaller nodules measuring 3 mm or less were also seen in the left lower lobe. There was interval enlargement of the right upper paratracheal lymph node measuring 2 cm. He then underwent EBUS with FNA biopsy of the right paratracheal lymph node on 02/05/2020. Pathology showed metastatic adenocarcinoma consistent with esophageal primary. He had medical oncology follow-up with Dr. Kulwant Knight on 02/13/2020. He was recommended to undergo placement of Port-A-Cath venous access device and to begin a course of chemotherapy with modified FOLFOX. A [facility] next generation sequencing study also was requested, biut there was insufficient material available to complete the study. A repeat PET/CT on 02/22/2020 showed interval development of 2 malignant lymph nodes, the dominant lesion in the right paratracheal area measuring 2.9 cm with SUV 6.8. The second was a lesion in the right cervical level IV territory measuring 2.6 x 1.6 cm, SUV 4.0. There were no other sites of abnormal FDG uptake on that study. With insufficient tissue sample available for any additional studies, I had requested a [facility] next generation sequencing study by liquid biopsy. 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 There were no actionable mutations reported. I had been seeing him for a follow-up visit on 03/27/2020. With his disease apparently localized to the right paratracheal and lower right supraclavicular nodes, he was interested in pursuing local/regional treatment, and he then had radiation oncology consultation with Dr. Fidel Coronado. His further management was complicated by development of COVID-19 virus infection, confirmed on 04/13/2020. Restaging chest CT on 04/30/2020 showed masslike right paratracheal lymphadenopathy measuring 3.8 x 2.7 cm with mild mass-effect on the thoracic trachea. It had increased from 2.7 x 2.5 cm on the February PET/CT. A prominent left hilar lymph node measuring 12 mm appeared unchanged. The fibrotic appearing nodule in the left lower lobe on the January 2020 CT appeared to have resolved. Neck CT showed a large heterogeneous enhancing right supraclavicular lymph node measuring 3.5 x 1.8 cm, increased from 2.6 x 1.9 cm on the February PET/CT. He was able to begin radiation to the involved area in the right neck/upper chest on 05/04/2020. He completed treatment on 06/15/2020 to a total dose of [address] scans of the chest, abdomen, and pelvis on 07/20/2020 showed slight increase in the right paratracheal mass/adenopathy, measuring approximately 4 cm in maximum diameter. There was noted to be increasing tracheal displacement, but that was compared to the January 2020 CT scan. I reviewed the scans with the radiologist, and it appeared that the progression was very minimal. As such, I had recommended that he be just be followed on close observation. He is seen for a follow-up visit. He continues to complain that he feels tired. He is able to do light work. His ECOG score is 1. His appetite has been okay, though not really good. His weight is down a little. He has not had fever. He occasionally has sweating at night, but that he attributes to his blood sugar. He still has cough, which actually has gotten a little worse. He just occasionally brings up clear sputum with it. He does not complain of shortness of breath or chest pain. He has no GI or complaints. He has been having pain in his right shoulder area ever since his surgery. He has no other joint or bone pain. He has no focal neurologic symptoms. However, he continues to have significant anxiety/depression. Medications: Bystolic 1 Tablet (of 10 mg) Oral daily, Fluconazole 1 Tablet (of 100 mg) Oral daily, Gabapentin 1 Capsule (of 300 mg) Oral b.i.d., Glimepiride 1 Tablet (of 4 mg) Oral b.i.d., HumaLOG 200 Units (of 100 Units/mL) Subcutaneous PRN, Lantus 40 Units (of 100 Units/mL) Subcutaneous daily, Levothyroxine Sodium 1 Tablet (of 175 mcg) Oral daily, Nitrofurantoin Macrocrystal 1 Capsule (of 100 mg) Oral daily, Pantoprazole Sodium 1 Tablet (of 40 mg) Tablet, enteric coated Oral daily, Tamsulosin HCl 1 Cartridge (of 0.4 mg) Capsule Oral b.i.d., Timolol Maleate 1 Drop(s) (of 0.5 %) Solution Ophthalmic daily Allergies: Morphine Sulfate Review of Systems: Constitutional - He has felt tired at times. Appetite is OK, but no good. His weight is down a little. No fever. He occasionally has sweating at night. ECOG score is 1, ENMT - No sinus congestion/drainage. No mouth sores. No sore throat or difficulty swallowing, Hematologic/Lymphatic - No abnormal bruising or bleeding, Respiratory - No shortness of breath. His cough is a little worse. No pleuritic pain or hemoptysis, Cardiovascular - No angina pain. No palpitations, Gastrointestinal - No nausea or vomiting. No heartburn or acid reflux. No diarrhea or constipation. No blood in the stool or black stools, Genitourinary (M) - No dysuria or hematuria. No urinary frequency. No urgency or incontinence, Musculoskeletal - He has been having pain in his right shoulder, Integumentary - No skin rash, Neurologic - No headache or dizziness. No numbness or tingling. No other focal neurologic symptoms, Psychiatric - He has anxiety and depression. He does not sleep well at night. Vital Signs: Performed on Aug 25, 2020 11:03 Height - 75.00 in Weight - 230.6 lbs (LOW) BSA - 2.33 sq.m BMI - 28.82 Temperature - 97.6 F (LOW) Pulse - 64 /min Respiration - 14 /min BP - 166/75 mm(hg) (HIGH) O2 Sat - 97 % Pain - 0 Physical Examination: Constitutional - He looks good generally, Eyes - Sclerae nonicteric. Conjunctivae clear, ENMT - No lesions noted in the oral cavity, Hematologic/Lymphatic - No cervical, clavicular, or axillary adenopathy, Respiratory - Lungs are clear with good air movement bilaterally, Cardiovascular - Heart rhythm is regular. There is no murmur, gallop or rub noted, Abdomen - Soft. Liver and spleen are not enlarged. There is no abdominal mass or ascites noted and there is no inguinal adenopathy, Extremities - No edema, Neurologic - No focal neurologic deficits noted. Lab/Imaging: Test performed on Aug 25, 2020 09:32 Sodium 132 mmol/L Potassium 3.5 mmol/L Chloride 95 mmol/L CO2 28 mmol/L Anion Gap 12.5 BUN 12 mg/dL Creatinine 0.7 mg/dL Cr Clearance (Est) 182.64 mL/min eGFR 118.4 mL/min Glucose 267 mg/dL Osmolality - Calculated 283 mOsm/kg Calcium 9.2 mg/dL Protein, Total 6.4 g/dL Albumin 3.9 g/dL Globulin 2.5 g/dL Bilirubin, Total 0.4 mg/dL ALT (SGPT) 9 U/L AST (SGOT) 8 U/L Alkaline Phosphatase 87 IU/L WBC 10.7 10 3/uL RBC 4.90 10 6/uL HGB 15.0 g/dL HCT 44.3 % MCV 90.4 fL MCH 30.6 pg MCHC 33.9 g/dL RDW 12.7 % Platelet Count 226 10 3/cmm MPV 9.4 fL Neutrophils 9.38 10 3/uL Lymphocytes 0.4 10 3/uL Monocytes 0.8 10 3/uL Eosinophils 0.0 10 3/uL Basophils 0.0 10 3/uL Neutrophil % 87.6 % Lymphocyte % 4.1 % Monocyte % 7.3 % Eosinophil % 0.4 % Basophils % 0.2 % NRBC % 0 % Impression: 1. Patient with well differentiated infiltrating adenocarcinoma involving the lower third of the esophagus, HER-2/quoc positive. He disease was stage IIIB (ypT3, ypN1, M0) at initial diagnosis in June 2018, but with subsequent progression to stage IV (M1), with involvement in the right paratracheal lymph node confirmed by EBUS/FNA biopsy on 02/05/2020. 2. His previous treatment included neoadjuvant chemoradiation utilizing weekly carboplatin/Taxol followed by [place] esophagectomy on 10/30/2018. His other medical illnesses include: 3. Hypertension. 4. Hyperlipidemia. 5. Type II diabetes. 6. Obstructive sleep apnea. 7. Degenerative arthritis. 8. He has posttraumatic glaucoma of the left eye. 9. He has a history of recurrent episodes of nephrolithiasis. 10. He has a history of diverticulitis. His staging PET/CT showed uptake in the known involved right paratracheal lymph node and an additional area of uptake in a right cervical level IV territory node measuring 2.6 x 1.6 cm, SUV 4.0. His next generation sequencing study by liquid biopsy showed no actionable mutations. With disease localized to right supraclavicular and right paratracheal lymph nodes, he was interested in pursuing local/regional treatment. He had radiation oncology consultation with Dr. Fidel Coronado, and the plan was then to proceed with involved field radiation. His further treatment was complicated by COVID-19 virus infection, from which he had uneventful recovery. His restaging CT scans of the neck and chest on 04/30/2020 did show further progression of the lymphadenopathy, but still with localized involvement. He then began radiation to the right neck/upper chest on 05/04/2020. He completed treatment on 06/15/2020 to a total dose of [address] scans of the chest, abdomen, and pelvis on 07/20/2020 showed progression of right paratracheal adenopathy, but in comparison to his January [address] scan. I had subsequently reviewed those studies with the radiologist and as it appeared that the progression was very minimal, I had recommended that he be followed on close observation. Since then his clinical status has basically remained stable. He continues to have some fatigue and he has persistent cough. He also is having ongoing issues with depression. Plan: He will be scheduled for restaging CT scans of the neck and chest, as he will start systemic therapy if there is significant disease progression. In the meantime, I will have him start citalopram 20 mg daily for the depression. Signed By: Jurgen Kearns M.D. <<Signature on File>>
== END 2020-09-03 23:59 | disposition home or self-care (01) ==
LOC: RAD 15:00
PROVIDERS: Absent Provider Radiology Radiation Oncology; PCP Internal Medicine; Visit Provider Internal Medicine Medical Oncology
DX: C15.5 Malignant neoplasm of lower third of esophagus (principal); C77.1 Secondary and unspecified malignant neoplasm of intrathoracic lymph nodes; R05 Cough; R53.83 Other fatigue; F32.9 Major depressive disorder, single episode, unspecified; I10 Essential (primary) hypertension; E78.5 Hyperlipidemia, unspecified; E11.9 Type 2 diabetes mellitus without complications; G47.33 Obstructive sleep apnea (adult) (pediatric); M19.90 Unspecified osteoarthritis, unspecified site; Z86.19 Personal history of other infectious and parasitic diseases; Z92.3 Personal history of irradiation
CPT/HCPCS: 36591; 80053; 85025; 99214

== ENCOUNTER 2020-10-06 12:53 | Outpatient (CLI) | payer BC, SELFPAY ==
--- NOTE | 2020-10-09 18:02 | ONC FU_ITS ---
Dr. Kearns Patient Follow-Up Note Patient: Ricky Flores Unit #: [id number]: [id number] Dicatated By: Jurgen Kearns M.D.Date of Visit:Oct 06, 2020 Onc Med Follow-up/Prog Note Chief Complaint: Esophageal cancer. 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 His disease was stage IIIB (ypT3, ypN1, M0) at initial diagnosis in June 2018, but with subsequent progression to stage IV (M1). He had presented with iron deficiency anemia and weight loss. He underwent EGD and colonoscopy on 06/15/2018. The colonoscopy showed 2 small sessile polyps in the mid transverse colon, both of which were removed endoscopically. The EGD showed a circumferential and partially obstructing, large size, malignant appearing mass in the lower third esophagus. The stomach and duodenum appeared unremarkable. Biopsy of the esophageal mass showed well-differentiated infiltrating adenocarcinoma with papillary histologic pattern. On subsequent evaluation, the tumor was confirmed to be MSI stable. It did show overexpression of HER-2/quoc, 3+ by IHC and amplification ratio by FISH of 1.8 with 7.3 HER-2 copies/cell. Staging CT scans of the chest, abdomen, and pelvis on 06/15/2018 showed increased soft tissue thickening suggested at the level of the gastroesophageal junction, estimated at 5 cm in width and 4 cm in depth. There was mild thickening of the wall of the distal esophagus. A superior right paratracheal lymph node measured 1.9 x 2.8 cm. The abdomen showed 2 adjacent perigastric lymph nodes near the greater curvature, located between the stomach and pancreas, measuring 1.7 and 2.2 cm. There was no other intra-abdominal or retroperitoneal adenopathy noted, and there was no evidence of other metastatic disease. Staging PET/CT on 06/23/2018 showed a 3 cm hypermetabolic segment of the distal esophagus with SUV 15.0, consistent with primary malignancy. A 2.2 cm gastrohepatic lymph node had SUV 4.1, consistent with local metastatic disease. There was no evidence for other metastatic involvement. The superior right paratracheal lymph node was noted to be FDG negative, consistent with benign disease. He underwent definitive treatment through the [facility]. His treatment included neoadjuvant chemoradiation utilizing weekly carboplatin/Taxol followed by [facility] esophagectomy on 10/30/2018. I do not have the complete pathology report available, but the final staging was IIIB (ypT3, ypN1, M0). He was then followed on observation/expectant management. His other medical illnesses include hypertension, hypertriglyceridemia, type II diabetes, hypothyroidism, androgen deficiency, obstructive sleep apnea, degenerative arthritis, and glaucoma. He also has history of diverticulitis and a history of recurrent episodes of nephrolithiasis. His other surgeries include cataract excision from the left eye, carpal tunnel release on the left, vasectomy, and extracorporeal shockwave lithotripsy. He underwent right total hip arthroplasty on 07/29/2019. He is a non-smoker, but he had chewed tobacco for 35 years, estimated 2 to 3 cans/day. He does not drink alcohol. INTERIM HISTORY: His surveillance CT scans of the chest, abdomen, and pelvis at [facility] on 01/15/2020 showed interval development of an 8 mm pulmonary nodule in the left major fissure and a 1.1 cm left lower lobe medial basal segment nodule, concerning for metastatic disease. A few other smaller nodules measuring 3 mm or less were also seen in the left lower lobe. There was interval enlargement of the right upper paratracheal lymph node measuring 2 cm. He then underwent EBUS with FNA biopsy of the right paratracheal lymph node on 02/05/2020. Pathology showed metastatic adenocarcinoma consistent with esophageal primary. He had medical oncology follow-up with Dr. Kulwant Knight on 02/13/2020. He was recommended to undergo placement of Port-A-Cath venous access device and to begin a course of chemotherapy with modified FOLFOX. A [facility] next generation sequencing study also was requested, biut there was insufficient material available to complete the study. A repeat PET/CT on 02/22/2020 showed interval development of 2 malignant lymph nodes, the dominant lesion in the right paratracheal area measuring 2.9 cm with SUV 6.8. The second was a lesion in the right cervical level IV territory measuring 2.6 x 1.6 cm, SUV 4.0. There were no other sites of abnormal FDG uptake on that study. With insufficient tissue sample available for any additional studies, I had requested a [facility] next generation sequencing study by liquid biopsy. 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 There were no actionable mutations reported. I had been seeing him for a follow-up visit on 03/27/2020. With his disease apparently localized to the right paratracheal and lower right supraclavicular nodes, he was interested in pursuing local/regional treatment, and he then had radiation oncology consultation with Dr. Fidel Coronado. His further management was complicated by development of COVID-19 virus infection, confirmed on 04/13/2020. Restaging chest CT on 04/30/2020 showed masslike right paratracheal lymphadenopathy measuring 3.8 x 2.7 cm with mild mass-effect on the thoracic trachea. It had increased from 2.7 x 2.5 cm on the February PET/CT. A prominent left hilar lymph node measuring 12 mm appeared unchanged. The fibrotic appearing nodule in the left lower lobe on the January 2020 CT appeared to have resolved. Neck CT showed a large heterogeneous enhancing right supraclavicular lymph node measuring 3.5 x 1.8 cm, increased from 2.6 x 1.9 cm on the February PET/CT. He was able to begin radiation to the involved area in the right neck/upper chest on 05/04/2020. He completed treatment on 06/15/2020 to a total dose of [address] scans of the chest, abdomen, and pelvis on 07/20/2020 showed slight increase in the right paratracheal mass/adenopathy, measuring approximately 4 cm in maximum diameter. There was noted to be increasing tracheal displacement, but that was compared to the January 2020 CT scan. I reviewed the scans with the radiologist, and it appeared that the progression was very minimal. As such, I had recommended that he be just be followed on close observation. Restaging CT scans on 09/01/2020 showed slight interval improvement in the right supraclavicular lymph node measuring 1.9 x 1.5 x 1.2 cm. There was also slight improvement in right paratracheal lymphadenopathy measuring 2.3 x 2.2 x 3.3 cm. There was no evidence of disease progression. He is seen for a follow-up visit. He has been feeling pretty good generally. His main complaint is that he has had some coughing spells, attributable to a tickling in his throat. These tend to be worse at night. He has occasionally coughed up blood with it. He did see Dr. Vargas earlier today, and he is being scheduled for additional CT studies. His energy, though, has been pretty good. ECOG score is 0. He has good appetite. He has no fever or night sweats. He does not complain of shortness of breath or chest pain. He has no GI or complaints. He has had some joint pain, particularly in the shoulders. He does not complain of headache or dizziness, and he has no focal neurologic symptoms. He was having significant depression, but that has improved. Medications: Bystolic 1 Tablet (of 10 mg) Oral daily, Fluconazole 1 Tablet (of 100 mg) Oral daily, Gabapentin 1 Capsule (of 300 mg) Oral b.i.d., Glimepiride 1 Tablet (of 4 mg) Oral b.i.d., HumaLOG 200 Units (of 100 Units/mL) Subcutaneous PRN, Lantus 40 Units (of 100 Units/mL) Subcutaneous daily, Levothyroxine Sodium 1 Tablet (of 175 mcg) Oral daily, Nitrofurantoin Macrocrystal 1 Capsule (of 100 mg) Oral daily, Pantoprazole Sodium 1 Tablet (of 40 mg) Tablet, enteric coated Oral daily, Tamsulosin HCl 1 Cartridge (of 0.4 mg) Capsule Oral b.i.d., Timolol Maleate 1 Drop(s) (of 0.5 %) Solution Ophthalmic daily Allergies: Morphine Sulfate Vital Signs: Performed on Oct 06, 2020 13:10 Height - 75.00 in Weight - 234.2 lbs (HIGH) BSA - 2.35 sq.m BMI - 29.27 Temperature - 96.8 F (LOW) Pulse - 66 /min Respiration - 17 /min BP - 141/85 mm(hg) (HIGH) O2 Sat - 98 % Pain - 0 Physical Examination: Constitutional - He looks good generally, Eyes - Sclerae nonicteric. Conjunctivae clear, ENMT - No lesions noted in the oral cavity, Hematologic/Lymphatic - No cervical, clavicular, or axillary adenopathy, Respiratory - Lungs show slightly coarse breath sounds bilaterally, Cardiovascular - Heart rhythm is regular. There is no murmur, gallop or rub noted, Abdomen - Soft. Liver and spleen are not enlarged. There is no abdominal mass or ascites noted and there is no inguinal adenopathy, Extremities - No edema, Neurologic - No focal neurologic deficits noted. Problem List: 1. Well differentiated infiltrating adenocarcinoma involving the lower third of the esophagus, HER-2/quoc positive. He disease was stage IIIB (ypT3, ypN1, M0) at initial diagnosis in June 2018, but with subsequent progression to stage IV (M1), with involvement in the right paratracheal lymph node confirmed by EBUS/FNA biopsy on 02/05/2020. His next generation sequencing study by liquid biopsy showed no actionable mutations. 2. His initial treatment included neoadjuvant chemoradiation utilizing weekly carboplatin/Taxol followed by [facility] esophagectomy on 10/30/2018. 3. Hypertension. 4. Hyperlipidemia. 5. Type II diabetes. 6. Obstructive sleep apnea. 7. Degenerative arthritis. 8. He has posttraumatic glaucoma of the left eye. 9. He has a history of recurrent episodes of nephrolithiasis. 10. He has a history of diverticulitis. Problems Addressed with this Encounter and Plan: Well differentiated infiltrating adenocarcinoma involving the lower third of the esophagus, HER-2/quoc positive. He disease was stage IIIB (ypT3, ypN1, M0) at initial diagnosis in June 2018. His initial treatment included neoadjuvant chemoradiation utilizing weekly carboplatin/Taxol followed by [facility] esophagectomy on 10/30/2018. He had subsequent progression to stage IV (M1), with involvement in the right paratracheal lymph node confirmed by EBUS/FNA biopsy on 02/05/2020. His staging PET/CT showed uptake in the known involved right paratracheal lymph node and an additional area of uptake in a right cervical level IV territory node measuring 2.6 x 1.6 cm, SUV 4.0. With disease localized to right supraclavicular and right paratracheal lymph nodes, he was interested in pursuing local/regional treatment. His further treatment was complicated by COVID-19 virus infection, from which he had uneventful recovery. His restaging CT scans of the neck and chest on 04/30/2020 did show further progression of the lymphadenopathy, but still with localized involvement. He then began radiation to the right neck/upper chest on 05/04/2020. He completed treatment on 06/15/2020 to a total dose of 6000 cGy. He was then followed on observation/expectant management. His restaging CT scans on 09/01/2020 showed no evidence of disease progression. Since then he has had some coughing spells and recently has occasionally had associated hemoptysis. He has otherwise been stable clinically. He has seen Dr. Vargas, and he is being scheduled for additional CT scans. He will have further evaluation as indicated. However, in the absence of any evidence of disease progression, I will just plan a 3-month interval follow-up. Signed By: Jurgen Kearns M.D. <<Signature on File>>
== END 2020-10-06 12:54 | disposition home or self-care (01) ==
PROVIDERS: PCP Internal Medicine; Visit Provider Internal Medicine Medical Oncology
DX: C15.5 Malignant neoplasm of lower third of esophagus (principal); C77.1 Secondary and unspecified malignant neoplasm of intrathoracic lymph nodes; R04.2 Hemoptysis; Z92.3 Personal history of irradiation; Z90.49 Acquired absence of other specified parts of digestive tract; Z86.16 Personal history of COVID-19
CPT/HCPCS: 96523; 99214

== ENCOUNTER 2020-10-13 11:12 | Outpatient (CLI) | payer BC, SELFPAY ==
--- NOTE | 2020-10-13 11:30 | CT_ITS ---
WS: [id number] CT CHEST WITH INTRAVENOUS CONTRAST HISTORY: Evaluation for aortoesophageal or aorto bronchial fistula, history of adenocarcinoma of the esophagus with gastric pull-through. TECHNIQUE: Contiguous 5 mm axial imaging performed on the thorax. 2 separate timing CTs were obtained . Coronal and sagittal reformats are submitted. All CT scans at [facility] use at least o ne of these dose optimization techniques: automated exposure control; mA and/or kV adjustment per pat ient size (includes targeted exams where dose is matched to clinical indication); or iterative recons truction. CONTRAST: Omnipaque 350; 95 mL IV. DLP: 2762.72 mGy.cm COMPARISON: 09/01/2020, 07/20/2020 and 04/30/2020 Arterial and mild delayed imaging is performed through the chest to evaluate for possible fistula. Th ere is normal enhancement of the thoracic aorta. There is a fat plane between the esophagus and aorta and the bronchial tree throughout this examination. There is no arterial extension of contrast into the soft tissue tumor involving the upper paratracheal adenopathy in the esophagus. There is been a significant progression in size of the RIGHT paratracheal lymphadenopathy with is inv ading into the upper esophagus and the posterior trachea. There is a soft tissue nodule extending int o the tracheal lumen which has increased in size. Complete obscuration of the upper esophagus lumen. There is displacement of the lumen to the LEFT. On the contrast images there is an area of blush-like enhancement posterior to the trachea measuring 8 mm. This blush-like enhancement is within portion o f the tracheal adenopathy and also within the wall of the esophagus. Mass extends over length of 4.3 cm x 4.4 x 3.1 cm. RIGHT paratracheal mass abuts against the posterior surface of the RIGHT innominat e with loss of the normal fat plane. RIGHT supraclavicular lymph node abutting against the posterior surface of the jugular vein measures 13 mm and not increased in size. Left-sided Port-A-Cath is present with tip extending into the distal SVC. No thrombus or clot noted in the SVC. Small bilateral mediastinal and hilar lymph nodes otherwi se. The gastroesophageal pull-through is unchanged. There is a new lesion within the RIGHT lobe of the liver measuring 2.6 x 3.1 cm. Peripheral arterial enhancement with central area of decreased density which was not present on the prior study and highl y suspicious for metastatic site. No adrenal mass. Visualized additional upper abdominal structures a re negative. Subsolid nodule measuring 10 mm along the superior major fissure extends into the RIGHT upper lobe. T here is adjacent additional interstitial thickening. This nodule has been present on prior studies. CT/CT chest w con* [id number] IMPRESSION: 1. Cannot confirm aorto esophageal or aorto bronchial tree fistula. 2. Moderate progression of high RIGHT paratracheal lymphadenopathy with tumor extension into the esophagus and trachea. 3. Focal area of blush-like enhancing measuring 8 mm in the esophagus, best se en on image 18 of series 4 may be an area of angiodysplasia. 4. Obstructed esophageal lumen in the high mediastinum. 5. New metastatic lesion RIGHT lobe of the liver. 6. Gastric esophageal pull-through. 7. Again noted is a subsolid nodule in the RIGHT upper lobe. Notified Diana Vargas MD at 10/13/2020 1:38 PM.
== END 2020-10-13 11:13 | disposition home or self-care (01) ==
LOC: RADWPI 11:14
PROVIDERS: PCP Internal Medicine; Visit Provider Internal Medicine Critical Care Medicine
DX: Z85.01 Personal history of malignant neoplasm of esophagus (principal); R91.1 Solitary pulmonary nodule; K76.9 Liver disease, unspecified
CPT/HCPCS: 71260

== ENCOUNTER 2020-10-14 13:23 | Day surgery (SDC) | payer BC, SELFPAY ==
[2020-10-14] VITALS (29 sets, daily range): BP systolic 126–196; BP diastolic 76–118; PULSE 60–83; RESP 12–22; TEMP 36.4–37.2; O2SAT 92–98; BMI 28.7
--- NOTE | 2020-10-14 14:00 | XR_ITS ---
WS: [id number] Portable AP upright chest, 10/14/2020 Clinical Data: dyspnea/cough Comparison: PA and lateral chest, 08/23/2017 Findings: No nodules, masses or effusions are seen. The heart is normal. The pulmonary vascularity is not increased. No pneumonia or pneumothorax is seen. There is a soft tissue density at the level of the right supraclavicular articulation deviating the trachea from right to left which correlates to s oft tissue mass noted on CT scan of the chest yesterday. There is an infusion catheter entering from the left subclavian vein and ending in the superior vena cava. Monitor leads on the chest wall. XR/XR chest 1V portable [id number] Impression: Negative for metastatic disease in the lungs.
--- NOTE | 2020-10-14 14:10 | ED_ITS ---
HPI - General Adult General: Chief complaint: General Medical Stated complaint: coughing up blood Time Seen by Provider: 10/14/20 13:44 History of Present Illness: HPI narrative: 54-year-old male with a history esophageal cancer began coughing up blood about 2 weeks ago became significantly more overnight. He had a CT yesterday he had been seeing Dr. Kearns and was referred to Dr. Vargas. He has peritracheal nodes that have enlarged. He showed me pictures of several large clots of blood that he coughed up he is not had any vomiting or diarrhea he has not had any hematochezia. He denies any dysuria urgency or frequency or abdominal pain. He had initially been treated with chemo upon diagnosis in 2018 he had a subsequent recurrence in a few months ago finished a course of radiation. Onset (ago): week(s) Severity: mild Relieving factors: none Exacerbating factors: none Associated symptoms: Reports cough; Deny chest pain, confusion, diaphoresis, decreased appetite, dyspnea, fevers/chills, headache(s), malaise, nausea, rash, palpitations, seizures, short of breath, syncope, vomiting or weakness Treatments prior to arrival: none Review of Systems Const: Denies: malaise or diaphoresis ENMT: Denies: throat pain, ear or mastoid pain, nasal discharge or nasal congestion Card: Denies: chest pain, palpitations or syncope Resp: Denies: dyspnea GI: Denies: nausea or vomiting : Denies: flank pain, dysuria, urinary frequency or urinary urgency Skin/Breast: Denies: rash Neuro: Denies: headache(s) or confusion PFSH ED PFSH: Medical History Acquired hypothyroidism Calcium urolithiasis Candidal UTI (urinary tract infection) Cystitis cystica Diabetes mellitus Esophageal cancer BOTTOM 1/3 OF ESOPHAGUS REMOVED Essential (primary) hypertension Hypertriglyceridemia Hypogonadism Incomplete bladder emptying Microcytic anemia YARED on CPAP Reactive depression Renal calculus, right Surgical History H/O: vasectomy History of esophageal surgery removal of part of esophagus History of esophagogastroduodenoscopy (EGD) Hx of colonoscopy Port-A-Cath in place (02/24/20) S/P cataract surgery S/P ureteral stent placement ESWL S/P wrist surgery Family History Father Heart disease Mother Hypertension Recurrent urinary tract infection Dementia Other Diabetes Social History Smoking and tobacco status: never smoked Quit status (tobacco): not considering quitting Alcohol intake: never Adopted: No Caregiver/support person: No Lives independently: No Household members: spouse Housing: House Marital status: Current occupational status: employed History of recent travel: No Physical Exam Const: COMMON NORMALS: no acute distress GENERAL APPEARANCE: cooperative and comfortable ORIENTATION/CONSCIOUSNESS: Yes awake, Yes oriented to person, Yes oriented to place and Yes oriented to time HENMT: COMMON NORMALS: normocephalic, atraumatic and hearing grossly normal bilaterally HEAD & SCALP: normocephalic and atraumatic Neck/C-Spine: COMMON NORMALS: no JVD Resp: COMMON NORMALS: normal respiratory effort, No retractions, No use of accessory muscles and clear to auscultation bilaterally AUSCULTATION: clear to auscultation bilaterally Cardio: COMMON NORMALS: no JVD, regular rate, regular rhythm and No murmurs present (Cardio) RATE: regular rate RHYTHM: regular rhythm GI: COMMON NORMALS: Soft to palpation and No hepatosplenomegaly present AUSCULTATION: Yes normoactive bowel sounds PALPATION: Yes Soft to palpation, No Tenderness to palpation present (GI), No Guarding due to palpation present (GI) and Yes No hepatosplenomegaly present Extremity: COMMON NORMALS: normal to inspection, capillary refill normal, no clubbing, cyanosis or edema, no calf tenderness and no pedal edema Neuro: SENSORIUM/ORIENTATION: Yes oriented to person, Yes oriented to place and Yes oriented to time Skin: COMMON NORMALS: no rashes or lesions noted GENERAL SKIN EXAM: no rashes or lesions noted Course Vital Signs: Vital signs: Vital Signs Temperature 98.2 F 10/14/20 13:37 Pulse Rate 64 10/14/20 14:16 Respiratory Rate 12 10/14/20 14:16 Blood Pressure 196/98 10/14/20 14:16 Pulse Oximetry 96 10/14/20 14:18 MDM - General Adult MDM Narrative: Medical decision making narrative: Basic lab work ordered Dr. Vargas has been down to see the patient. He will take him to the OR for bronchoscopy. Lab Data: Labs: Lab Results 10/14/20 10/14/20 Range/Units 14:16 14:16 WBC 6.0 (4.0-10.0) 10^3/ uL RBC 4.96 (4.1-5.3) 10^6/u L Hgb 15.1 (11.7-16.6) g/dL Hct 45.1 (42.0-52.0) % MCV 90.9 (80-94) fL MCH 30.4 (28.0-34.0) pg MCHC 33.5 (30.0-36.0) g/dL RDW 13.2 (12.1-15.1) % Plt Count 178 (130-400) 10^3/c mm MPV 10.0 (7.4-10.4) fL Neut % (Auto) 77.7 % Lymph % (Auto) 11.0 % [place] % (Auto) 9.3 % Eos % (Auto) 1.2 % Baso % (Auto) 0.5 % Neut # (Auto) 4.67 (1.8-7.7) 10^3/u L Lymph # (Auto) 0.7 L (0.8-4.8) 10^3/u L [place] # (Auto) 0.6 (0.2-0.9) 10^3/u L Eos # (Auto) 0.1 (0.0-0.8) 10^3/u L Baso # (Auto) 0.0 (0.0-0.1) 10^3/u L Nucleated RBC % (a uto) 0 % Nucleated RBCs # 0.0 /100WBC Potassium 4.0 (3.5-5.1) mmol/L Chloride 98 (98-107) mmol/L Carbon Dioxide 29 (22-29) mmol/L Anion Gap 11.0 (5-19) BUN 9 (6-20) mg/dL Calculated Osmolal ity 286 (285-295) mOsm/k g Calcium 9.1 (8.5-10.5) mg/dL Total Bilirubin 0.4 (0.15-1.2) mg/dL AST 12 (0-40) U/L ALT 10 (0-41) U/L Alkaline Phosphata se 104 (40-130) IU/L Total Protein 6.8 (6.6-8.7) g/dL Albumin 3.9 (3.5-5.2) g/dL Globulin 2.9 (1.3-4.6) g/dL Coding Level of Care Code ED Bucket Wash Operator for Chg Fwd Exam Comprehensive
[2020-10-14 14:27] LABS: Basophils % 0.5 %; Eosinophils # 0.1 10^3/uL (0.0-0.8); Eosinophils % 1.2 %; Hematocrit 45.1 % (42.0-52.0); Hemoglobin 15.1 g/dL (11.7-16.6); Lymphocytes # 0.7 10^3/uL (0.8-4.8); Mean Corpuscular HGB Conc 33.5 g/dL (30.0-36.0); Mean Corpuscular Hemoglobin 30.4 pg (28.0-34.0); Mean Corpuscular Volume 90.9 fL (80-94); Monocytes # 0.6 10^3/uL (0.2-0.9); Monocytes % 9.3 %; Neutrophils # 4.67 10^3/uL (1.8-7.7); Neutrophils % 77.7 %; Nucleated Red Blood Cells % 0 %; Platelet Count 178 10^3/cmm (130-400); Red Blood Count 4.96 10^6/uL (4.1-5.3); Red Cell Distribution Width 13.2 % (12.1-15.1)
--- NOTE | 2020-10-14 14:30 | PC.NURSE ---
patient denied any pain at this time. at bedside. Dr. bruce here. accessed port-a-cath site dry and clean. pt denied any discomfort at port-a-cath site.
--- NOTE | 2020-10-14 14:48 | P.PN_ITS ---
Subjective Subjective: Interval history: This is a 54-year-old gentleman with metastatic esophageal cancer coming in with hemoptysis. I had recently evaluated the patient in the office for the same complaint and he had undergone CT scan of the chest with contrast to evaluate for any aorta esophageal or aorto bronchial fistula. On the CT scan there was no evidence of the fistula however there had been significant progression of the cancer. There appears to be extension of the cancer through the posterior tracheal membrane. The patient was seen and examined in the emergency department. Other than coughing up blood the patient is not complaining of any other symptoms. His was also accompanying him. I have discussed the recent CT scan findings with the patient and his . Medications: Reviewed: Yes Vitals/I&O/Wt Last Vital Signs Temp 98.2 F 10/14/20 13:37 Pulse 64 10/14/20 14:16 Resp 12 10/14/20 14:16 BP 196/98 10/14/20 14:16 Pulse Ox 96 10/14/20 14:18 Weight last 48 hrs Weight 230 lb Physical Exam Narrative: EXAM NARRATIVE: General: Patient is awake alert and oriented, in no acute distress. Neck: No JVD Respiratory: Inspection: No visible deformity of the chest wall Palpation: Trachea is mildly deviated to the right, bilateral symmetric expansion, bilateral symmetric vocal fremitus present Percussion: Bilateral tympanic percussion note both anterior and posteriorly Auscultation: Bilateral clear to auscultation both anterior and posteriorly, no crackles wheezing or rhonchi Cardiovascular: Regular rate and rhythm, S1-S2 present, no murmur, no peripheral edema Abdomen: Soft, nontender, nondistended, positive bowel sound Musculoskeletal: No obvious joint deformity, normal gait Skin: No rash, no evidence of erythema nodosum or multiforme Lymphatic: The axillary and inguinal lymph node groups are not examined Neuro: Mental status is normal, no gross cranial nerve deficit, normal motor and coordination. Data : 10/14/20 14:16 10/14/20 14:16 A&P Assessment and plan (1) Hemoptysis: The patient is presenting with worsening hemoptysis. This is likely secondary to tumor extension into the airways. I am going to perform a bronchoscopy. The patient will also likely require endobronchial sound guided transbronchial needle aspiration of lymph nodes to obtain more samples. I have discussed this in detail with the patient and his . 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 Kearns. He is going to start authorization for further treatment at this time. Status: Acute Attestations Medical Necessity Statement*: Will decide on the further action after the bronchoscopy. 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
[2020-10-14 15:00] LABS: Alanine Aminotransferase 10 U/L (0-41); Albumin Level 3.9 g/dL (3.5-5.2); Alkaline Phosphatase 104 IU/L (40-130); Aspartate Amino Transferase 12 U/L (0-40); Blood Urea Nitrogen 9 mg/dL (6-20); Calcium 9.1 mg/dL (8.5-10.5); Carbon Dioxide 29 mmol/L (22-29); Chloride 98 mmol/L (98-107); Globulin 2.9 g/dL (1.3-4.6); Glomerular Filtration Rate 174.6 mL/min (90-130); Glucose 258 mg/dL (65-115); Osmolality Calculated 286 mOsm/kg (285-295); Sodium 134 mmol/L (136-145); Total Bilirubin 0.4 mg/dL (0.15-1.2); Total Protein 6.8 g/dL (6.6-8.7)
[2020-10-14] MEDS: HYDROmorphone 1 mg/mL INJ 1 mL IVP (15:06)
[2020-10-14 15:32] LABS: INR 1.06 (0.8-1.2)
[2020-10-14 15:33] LABS: Partial Thromboplastin Time 30.8 SECONDS (23.9-36.7)
--- NOTE | 2020-10-14 15:41 | P.ANESASSM_ITS ---
Pre-Anesthetic Assessment Pre-Anesthetic Assessment: Height/Weight: Height 1.91 m Weight 104.326 kg Temp Pulse Resp BP Pulse Ox 98.2 F 70 16 163/99 95 10/14/20 13:37 10/14/20 15:21 10/14/20 15:21 10/14/20 15:21 10/14/20 15:21 Preop Diagnosis: Esophageal cancer Proposed Procedure: Operation Date: 10/14/20 15:45 Proposed Procedures p Bronchoscopy(Not Applicable) - Bipvini Vargas MD Was Beta Naun taken within 24 hours: N/A Social: Social History: Tobacco (Chews) and No alcohol Exam: Pre-Anes Outpt Exam: alert, oriented x 3, clear to auscultation bilaterally and regular rate & rhythm Airway: Submandibular: WNL Cervical ROM: WNL MP: 3 Dentition: Full Pulmonary: Pulmonary: Sleep apnea GI: GI: GERD Comments: Esophogeal CA Metabolic: Metabolic: DM and Thyroid Neuropsych: Neuropsych: Anxiety Anesthetic Plan: ASA status: 3 Anesthesia: General Risk of > 500 ml blood loss (7ml/kg in children): No PFSH Anesthesia PFSH: Medical History Acquired hypothyroidism Calcium urolithiasis Candidal UTI (urinary tract infection) Cystitis cystica Diabetes mellitus Esophageal cancer BOTTOM 1/3 OF ESOPHAGUS REMOVED Essential (primary) hypertension Hypertriglyceridemia Hypogonadism Incomplete bladder emptying Microcytic anemia YARED on CPAP Reactive depression Renal calculus, right Surgical History H/O: vasectomy History of esophageal surgery removal of part of esophagus History of esophagogastroduodenoscopy (EGD) Hx of colonoscopy Port-A-Cath in place (02/24/20) S/P cataract surgery S/P ureteral stent placement ESWL S/P wrist surgery Family History Father Heart disease Mother Hypertension Recurrent urinary tract infection Dementia Other Diabetes Social History Smoking and tobacco status: never smoked Quit status (tobacco): not considering quitting Alcohol intake: never Adopted: No Caregiver/support person: No Lives independently: No Household members: spouse Housing: House Marital status: Current occupational status: employed History of recent travel: No Data Anesthesia CBC & Chem 7: 10/14/20 14:16 10/14/20 14:16 Other Labs: Laboratory Results - last 48 hr 10/14/20 10/14/20 10/14/20 14:16 14:16 14:16 WBC 6.0 RBC 4.96 Hgb 15.1 Hct 45.1 MCV 90.9 MCH 30.4 MCHC 33.5 RDW 13.2 Plt Count 178 MPV 10.0 Neut % (Auto) 77.7 Lymph % (Auto) 11.0 Nobles % (Auto) 9.3 Eos % (Auto) 1.2 Baso % (Auto) 0.5 Neut # (Auto) 4.67 Lymph # (Auto) 0.7 L Nobles # (Auto) 0.6 Eos # (Auto) 0.1 Baso # (Auto) 0.0 Nucleated RBC % (auto) 0 Nucleated RBCs # 0.0 PT 14.10 INR 1.06 APTT 30.8 Sodium 134 L Potassium 4.0 Chloride 98 Carbon Dioxide 29 Anion Gap 11.0 BUN 9 Creatinine 0.5 L GFR Calculation 174.6 H Glucose 258 H Calculated Osmolality 286 Calcium 9.1 Total Bilirubin 0.4 AST 12 ALT 10 Alkaline Phosphatase 104 Total Protein 6.8 Albumin 3.9 Globulin 2.9 Cardiac Studies: No Data to Display
--- NOTE | 2020-10-14 16:54 | P.OP_ITS ---
Operative Report Date of procedure: October 14, 2020 Pre-op Diagnosis: Esophageal cancer Post-op diagnosis: same Brief History: This is a 54-year-old gentleman coming in for bronchoscopic evaluation for hemoptysis Procedure: Name of the procedure: Bronchoscopy with inspection of the airway Indication: Hemoptysis in a patient with metastatic esophageal cancer Anesthesia: Monitored anesthesia care. Local anesthesia: 1% lidocaine instilled on the vocal cords Description of the procedure: The patient was positioned optimally. Monitored anesthesia care was initiated by the anesthesia team. The bronchoscope was advanced through the laryngeal mask airway. The vocal cords and epiglottis were anesthetized with 1% lidocaine. The bronchoscope was passed through the vocal cords. An exophytic mass originating from the posterior tracheal membrane was visualized about 3.5 to 4 cm below the vocal cords occluding approximately 85 to 90% of the lumen. No attempts were made to traverse the lesion. Complications: None Recommendation: The patient will be transferred to [facility] for further management by interventional pulmonology.
--- NOTE | 2020-10-14 16:59 | PM.HP ---
Providers/Chief Complaint Admitting Physician: Diana Vargas MD Primary Care Provider: Luis Luna MD Chief Complaint: coughing up blood History of Present Illness Ricky Flores is a 54 year old male who presented to the hospital today with worsening hemoptysis. The patient was evaluated in the pulmonary clinic on October 06. Briefly his past medical history as follows: The patient has a history of esophageal cancer that was diagnosed in June 2018. The patient had initially received chemoradiation therapy followed by esophagectomy and gastric pull-through surgery in [place]. During the initial diagnosis the patient was diagnosed with stage III esophageal cancer however over the course of the last 2 years the patient has developed metastatic disease in the mediastinal lymph nodes. The patient has stage IV esophageal cancer at this point. Currently the patient is following up with Dr. Kearns and receiving all his cancer treatment here at [place]. He had undergone radiation therapy to the right paratracheal lymph node in January 2020.His neck CT in August 2020 revealed improvement in the right paratracheal lymphadenopathy and supraclavicular lymphadenopathy. The patient has intermittent episodes of cough with sputum production predominantly in the morning time. Over the past couple of days the patient had coughed up blood. The blood was fresh without any clot. The quantity of the blood was not massive. The patient was ordered a CT scan of the chest with contrast to evaluate for aorto esophageal or aorto bronchial fistula. The CT scan of the chest obtained on October 13 revealed worsening metastatic disease. Embolism lesion occluding the esophagus completely protruding through the posterior tracheal membrane. The patient presented to the emergency department today with worsening hemoptysis. He underwent a bronchoscopic evaluation and was found to have an exophytic mass 3.5 to 4 cm below the vocal cords originating through the posterior tracheal membrane occluding 85 to 90% of the airway. The patient interestingly is not complaining of any significant symptoms other than hemoptysis. Review of Systems Narrative: General: No fevers chills night sweats or fatigue Skin: No rash HEENT: No nasal congestion, rhinitis, sinusitis, sneezing, mild hoarseness of voice Neck: There is no neck swelling, mass Respiratory: Please see my HPI. Cardiovascular: No chest pain, no significant complaints of shortness of breath Gastrointestinal: No abdominal pain, nausea, vomiting, melena Musculoskeletal: No joint pain or swelling Neurological: Patient is awake alert and oriented x3, no paralysis, gross motor function is normal. Psychiatric: No anxiety or depression. Medications/Allergies Home Medications Medication Instructions Recorded Confirmed Last Taken Type timolol 0.5 % eye drops 1 drop OPHTHALMIC (EYE) QDAY 09/19/19 10/14/20 10/13/20 History blood sugar diagnostic #100 each 03/09/20 10/14/20 Unknown Rx blood-glucose meter #1 each 03/09/20 10/14/20 Unknown Rx lancets #100 each 03/09/20 10/14/20 Unknown Rx glimepiride 4 mg tablet 4 mg PO BID #60 tab 03/23/20 10/14/20 10/13/20 Rx fluconazole 100 mg tablet 100 mg PO QDAY #60 tab 05/04/20 10/14/20 10/13/20 Rx tamsulosin 0.4 mg capsule 0.4 mg PO BID #180 cap 06/17/20 10/14/20 10/13/20 Rx insulin lispro 200 unit/mL (3 mL) 5 - 10 unit SUBCUT ONCE PRN #6 ml 07/08/20 10/14/20 10/13/20 Rx subcutaneous pen insulin glargine 100 unit/mL (3 See Rx Instructions .ROUTE 09/15/20 10/14/20 10/13/20 Rx mL) subcutaneous pen .COMPLEX #15 ml citalopram 20 mg tablet 20 mg PO DAILY 10/05/20 10/14/20 10/13/20 History varenicline 0.5 mg (11)-1 mg (42) See Rx Instructions PO PER PKG DIR 10/05/20 10/14/20 Unknown Rx tablets in a dose pack #53 ea fluticasone propionate 50 1 spray INTRANASAL BID 30 Days 10/06/20 10/14/20 Unknown Rx mcg/actuation nasal #15.8 ml spray,suspension gabapentin 300 mg PO DAILY 10/14/20 10/14/20 10/13/20 History levothyroxine 175 mcg PO DAILY 10/14/20 10/14/20 10/14/20 History nebivolol [Bystolic] 10 mg PO DAILY 10/14/20 10/14/20 10/13/20 History pantoprazole 40 mg PO DAILY 10/14/20 10/14/20 10/13/20 History Allergies Allergy/AdvReac Type Severity Reaction Status Date / Time morphine Allergy Unknown Verified 10/06/20 11:40 PFSH Acute PFSH: Medical History Acquired hypothyroidism Calcium urolithiasis Candidal UTI (urinary tract infection) Cystitis cystica Diabetes mellitus Esophageal cancer BOTTOM 1/3 OF ESOPHAGUS REMOVED Essential (primary) hypertension Hypertriglyceridemia Hypogonadism Incomplete bladder emptying Microcytic anemia YARED on CPAP Reactive depression Renal calculus, right Surgical History H/O: vasectomy History of esophageal surgery removal of part of esophagus History of esophagogastroduodenoscopy (EGD) Hx of colonoscopy Port-A-Cath in place (02/24/20) S/P cataract surgery S/P ureteral stent placement ESWL S/P wrist surgery Family History Father Heart disease Mother Hypertension Recurrent urinary tract infection Dementia Other Diabetes Social History Smoking and tobacco status: never smoked Quit status (tobacco): not considering quitting Alcohol intake: never Adopted: No Caregiver/support person: No Lives independently: No Household members: spouse Housing: House Marital status: Current occupational status: employed History of recent travel: No Vitals/I&O/Wt Last Vital Signs Temp 99.0 F 10/14/20 16:40 Pulse 62 10/14/20 16:40 Resp 14 10/14/20 16:40 BP 140/84 10/14/20 16:40 Pulse Ox 97 10/14/20 16:40 10/14/20 10/14/20 10/14/20 06:59 14:59 22:59 Intake Total 0 / 0 Output Total 0 / 0 Balance 0 / 0 Weight last 48 hrs Weight 230 lb Physical Exam Narrative: EXAM NARRATIVE: General: Patient is awake alert and oriented, in no acute distress. Neck: No JVD Respiratory: Inspection: No visible deformity of the chest wall Palpation: Trachea is mildly deviated to the right, bilateral symmetric expansion, bilateral symmetric vocal fremitus present Percussion: Bilateral tympanic percussion note both anterior and posteriorly Auscultation: Bilateral clear to auscultation both anterior and posteriorly, no crackles wheezing or rhonchi Cardiovascular: Regular rate and rhythm, S1-S2 present, no murmur, no peripheral edema Abdomen: Soft, nontender, nondistended, positive bowel sound Musculoskeletal: No obvious joint deformity, normal gait Skin: No rash, no evidence of erythema nodosum or multiforme Lymphatic: The axillary and inguinal lymph node groups are not examined Neuro: Mental status is normal, no gross cranial nerve deficit, normal motor and coordination. 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 On the latest CT scan there is significant progression of the disease as well as a new liver lesion. Status: Acute (2) Hemoptysis: The etiology of the hemoptysis is likely the nearly obstructing tracheal mass in the upper trachea. This is likely the esophageal cancer. 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 I have discussed this with Dr. Quintana at [facility]. The patient will be transferred to ICU. We do not have an micturition sequence testing on his initial histopathologic specimen. Please obtain this for further analysis. Status: Acute Attestations Medical Necessity Statement*: The patient will be transferred out to [facility] today. 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
--- NOTE | 2020-10-14 17:13 | ANE.PACU2 ---
Inpatient post-anesthesia follow up: Airway intact: Yes Vital signs: Temperature 99.0 F Pulse Rate [Left R adial] 69 Pulse Rate 62 Respiratory Rate 14 Blood Pressure [Le ft Arm] 181/118 Blood Pressure 140/84 Pulse Oximetry 97 Oxygen Delivery Me thod Nasal Cannula Oxygen Flow Rate 2 Fraction of Inspir ed Oxygen Hydration adequate: Yes Nausea and vomiting: No Pain level: 1 Mental status: Baseline
--- NOTE | 2020-10-14 18:44 | PC.NURSE ---
Patient to ICU 8 via stretcher. Patient AA0x4, VSS, no signs of distress, ambulated from stretcher to bed by self. Patient oriented to room and call light.
[2020-10-14 19:13] LABS: Glucose Point of Care 76 mg/dL (70-110)
--- NOTE | 2020-10-14 19:58 | DCPLANNER ---
1952 Pt taken by ambulance crew transfer to [facility], placed on SPO2 monitoring and BP. VSS Pt alert and oriented Family Present at bedside updated on transfer plans.
== END 2020-10-14 19:55 | disposition short-term general hospital (02) ==
LOC: ER 13:44 → OPS 14:38 → ICU 18:47
PROVIDERS: Emergency Provider Family Medicine; PCP Internal Medicine; Visit Provider Internal Medicine Critical Care Medicine
PROC: 0BJ08ZZ Inspection of Tracheobronchial Tree, Via Natural or Artificial Opening Endoscopic (ICD-10-PCS; CPT 31622; principal; 2020-10-14 15:45)
DX: C15.9 Malignant neoplasm of esophagus, unspecified (principal); C78.89 Secondary malignant neoplasm of other digestive organs; R04.2 Hemoptysis; G47.33 Obstructive sleep apnea (adult) (pediatric); E11.9 Type 2 diabetes mellitus without complications; I10 Essential (primary) hypertension; D38.1 Neoplasm of uncertain behavior of trachea, bronchus and lung
CPT/HCPCS: 12345; 31622; 36416; 71045; 80053; 82962; 85025; 85610; 85730; 99281; J1170; J3010

== ENCOUNTER 2020-11-03 13:01 | Outpatient (CLI) | payer BC, SELFPAY ==
--- NOTE | 2020-11-03 19:31 | ONC FU_ITS ---
Dr. Kearns Patient Follow-Up Note Patient: Ricky Flores Unit #: [id number]: [id number] Dicatated By: Jurgen Kearns M.D.Date of Visit:Nov 03, 2020 Onc Med Follow-up/Prog Note Chief Complaint: Esophageal cancer. 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 His disease was stage IIIB (ypT3, ypN1, M0) at initial diagnosis in June 2018, but with subsequent progression to stage IV (M1). He had presented with iron deficiency anemia and weight loss. He underwent EGD and colonoscopy on 06/15/2018. The colonoscopy showed 2 small sessile polyps in the mid transverse colon, both of which were removed endoscopically. The EGD showed a circumferential and partially obstructing, large size, malignant appearing mass in the lower third esophagus. The stomach and duodenum appeared unremarkable. Biopsy of the esophageal mass showed well-differentiated infiltrating adenocarcinoma with papillary histologic pattern. On subsequent evaluation, the tumor was confirmed to be MSI stable. It did show overexpression of HER-2/quoc, 3+ by IHC and amplification ratio by FISH of 1.8 with 7.3 HER-2 copies/cell. Staging CT scans of the chest, abdomen, and pelvis on 06/15/2018 showed increased soft tissue thickening suggested at the level of the gastroesophageal junction, estimated at 5 cm in width and 4 cm in depth. There was mild thickening of the wall of the distal esophagus. A superior right paratracheal lymph node measured 1.9 x 2.8 cm. The abdomen showed 2 adjacent perigastric lymph nodes near the greater curvature, located between the stomach and pancreas, measuring 1.7 and 2.2 cm. There was no other intra-abdominal or retroperitoneal adenopathy noted, and there was no evidence of other metastatic disease. Staging PET/CT on 06/23/2018 showed a 3 cm hypermetabolic segment of the distal esophagus with SUV 15.0, consistent with primary malignancy. A 2.2 cm gastrohepatic lymph node had SUV 4.1, consistent with local metastatic disease. There was no evidence for other metastatic involvement. The superior right paratracheal lymph node was noted to be FDG negative, consistent with benign disease. He underwent definitive treatment through the [facility]. His treatment included neoadjuvant chemoradiation utilizing weekly carboplatin/Taxol followed by [facility] esophagectomy on 10/30/2018. I do not have the complete pathology report available, but the final staging was IIIB (ypT3, ypN1, M0). He was then followed on observation/expectant management. His other medical illnesses include hypertension, hypertriglyceridemia, type II diabetes, hypothyroidism, androgen deficiency, obstructive sleep apnea, degenerative arthritis, and glaucoma. He also has history of diverticulitis and a history of recurrent episodes of nephrolithiasis. His other surgeries include cataract excision from the left eye, carpal tunnel release on the left, vasectomy, and extracorporeal shockwave lithotripsy. He underwent right total hip arthroplasty on 07/29/2019. He is a non-smoker, but he had chewed tobacco for 35 years, estimated 2 to 3 cans/day. He does not drink alcohol. INTERIM HISTORY: His surveillance CT scans of the chest, abdomen, and pelvis at [facility] on 01/15/2020 showed interval development of an 8 mm pulmonary nodule in the left major fissure and a 1.1 cm left lower lobe medial basal segment nodule, concerning for metastatic disease. A few other smaller nodules measuring 3 mm or less were also seen in the left lower lobe. There was interval enlargement of the right upper paratracheal lymph node measuring 2 cm. He then underwent EBUS with FNA biopsy of the right paratracheal lymph node on 02/05/2020. Pathology showed metastatic adenocarcinoma consistent with esophageal primary. He had medical oncology follow-up with Dr. Kulwant Knight on 02/13/2020. He was recommended to undergo placement of Port-A-Cath venous access device and to begin a course of chemotherapy with modified FOLFOX. A [facility] next generation sequencing study also was requested, biut there was insufficient material available to complete the study. A repeat PET/CT on 02/22/2020 showed interval development of 2 malignant lymph nodes, the dominant lesion in the right paratracheal area measuring 2.9 cm with SUV 6.8. The second was a lesion in the right cervical level IV territory measuring 2.6 x 1.6 cm, SUV 4.0. There were no other sites of abnormal FDG uptake on that study. With insufficient tissue sample available for any additional studies, I had requested a [facility] next generation sequencing study by liquid biopsy. 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 There were no actionable mutations reported. I had been seeing him for a follow-up visit on 03/27/2020. With his disease apparently localized to the right paratracheal and lower right supraclavicular nodes, he was interested in pursuing local/regional treatment, and he then had radiation oncology consultation with Dr. Fidel Coronado. His further management was complicated by development of COVID-19 virus infection, confirmed on 04/13/2020. Restaging chest CT on 04/30/2020 showed masslike right paratracheal lymphadenopathy measuring 3.8 x 2.7 cm with mild mass-effect on the thoracic trachea. It had increased from 2.7 x 2.5 cm on the February PET/CT. A prominent left hilar lymph node measuring 12 mm appeared unchanged. The fibrotic appearing nodule in the left lower lobe on the January 2020 CT appeared to have resolved. Neck CT showed a large heterogeneous enhancing right supraclavicular lymph node measuring 3.5 x 1.8 cm, increased from 2.6 x 1.9 cm on the February PET/CT. He was able to begin radiation to the involved area in the right neck/upper chest on 05/04/2020. He completed treatment on 06/15/2020 to a total dose of [address] scans of the chest, abdomen, and pelvis on 07/20/2020 showed slight increase in the right paratracheal mass/adenopathy, measuring approximately 4 cm in maximum diameter. There was noted to be increasing tracheal displacement, but that was compared to the January 2020 CT scan. I reviewed the scans with the radiologist, and it appeared that the progression was very minimal. As such, I had recommended that he be just be followed on close observation. Restaging CT scans on 09/01/2020 showed slight interval improvement in the right supraclavicular lymph node measuring 1.9 x 1.5 x 1.2 cm. There was also slight improvement in right paratracheal lymphadenopathy measuring 2.3 x 2.2 x 3.3 cm. There was no evidence of disease progression. He is seen for a follow-up visit. He was seen for a follow-up visit on 10/06/2020. At that point he developed some coughing spells with occasional hemoptysis. He had been evaluated by Dr. Vargas, and a repeat chest CT on 10/13/2020 showed significant progression in the right paratracheal lymphadenopathy. A soft tissue nodule was noted to be extending into the tracheal lumen. Also noted was development of a new lesion in the right lobe of the liver measuring 2.6 x 3.1 cm. Bronchoscopy on 10/14/2020 showed an exophytic mass originating from the posterior tracheal membrane located about 3.5 to 4 cm below the vocal cords. It was noted to occlude approximately 85 to 90% of the lumen. He was transferred urgently to [facility] for admission, and he subsequently underwent palliative surgical procedure. I have not yet received those records. Repeat CT scans at [facility] on 11/02/2020 showed residual right paratracheal mass measuring 3.3 x 3.0 cm with decreased luminal extension into the trachea. There was unchanged right supraclavicular lymphadenopathy measuring 1.4 x 1.7 cm. There was redemonstration of hepatic metastasis measuring 3.4 x 2.6 cm, with slight interval increase. He has been recommended to begin treatment with a FOLFOX chemotherapy regimen. Medications: Bystolic 1 Tablet (of 10 mg) Oral daily, Fluconazole 1 Tablet (of 100 mg) Oral daily, Gabapentin 1 Capsule (of 300 mg) Oral b.i.d., Glimepiride 1 Tablet (of 4 mg) Oral b.i.d., HumaLOG 200 Units (of 100 Units/mL) Subcutaneous PRN, Lantus 40 Units (of 100 Units/mL) Subcutaneous daily, Levothyroxine Sodium 1 Tablet (of 175 mcg) Oral daily, Nitrofurantoin Macrocrystal 1 Capsule (of 100 mg) Oral daily, Pantoprazole Sodium 1 Tablet (of 40 mg) Tablet, enteric coated Oral daily, Tamsulosin HCl 1 Cartridge (of 0.4 mg) Capsule Oral b.i.d., Timolol Maleate 1 Drop(s) (of 0.5 %) Solution Ophthalmic daily Allergies: Morphine Sulfate Vital Signs: Performed on Nov 03, 2020 13:38 Height - 75.00 in Weight - 229.4 lbs (LOW) BSA - 2.33 sq.m BMI - 28.67 Temperature - 97.9 F (LOW) Pulse - 68 /min Respiration - 16 /min BP - 159/84 mm(hg) (HIGH) O2 Sat - 98 % Pain - 0 Physical Examination: Constitutional - He looks good generally, Eyes - Sclerae nonicteric. Conjunctivae clear, ENMT - No lesions noted in the oral cavity, Hematologic/Lymphatic - No cervical, clavicular, or axillary adenopathy, Respiratory - Lungs sound clear, Cardiovascular - Heart rhythm is regular. There is no murmur, gallop or rub noted, Abdomen - Soft. Liver and spleen are not enlarged. There is no abdominal mass or ascites noted and there is no inguinal adenopathy, Extremities - No edema, Neurologic - No focal neurologic deficits noted. Problem List: 1. Well differentiated infiltrating adenocarcinoma involving the lower third of the esophagus, HER-2/quoc positive. He disease was stage IIIB (ypT3, ypN1, M0) at initial diagnosis in June 2018, but with subsequent progression to stage IV (M1), with involvement in the right paratracheal lymph node confirmed by EBUS/FNA biopsy on 02/05/2020. His next generation sequencing study by liquid biopsy showed no actionable mutations. 2. His initial treatment included neoadjuvant chemoradiation utilizing weekly carboplatin/Taxol followed by [facility] esophagectomy on 10/30/2018. 3. Hypertension. 4. Hyperlipidemia. 5. Type II diabetes. 6. Obstructive sleep apnea. 7. Degenerative arthritis. 8. He has posttraumatic glaucoma of the left eye. 9. He has a history of recurrent episodes of nephrolithiasis. 10. He has a history of diverticulitis. Problems Addressed with this Encounter and Plan: Well differentiated infiltrating adenocarcinoma involving the lower third of the esophagus, HER-2/quoc positive. He disease was stage IIIB (ypT3, ypN1, M0) at initial diagnosis in June 2018. His initial treatment included neoadjuvant chemoradiation utilizing weekly carboplatin/Taxol followed by [facility] esophagectomy on 10/30/2018. He had subsequent progression to stage IV (M1), with involvement in the right paratracheal lymph node confirmed by EBUS/FNA biopsy on 02/05/2020. His staging PET/CT showed uptake in the known involved right paratracheal lymph node and an additional area of uptake in a right cervical level IV territory node measuring 2.6 x 1.6 cm, SUV 4.0. With disease localized to right supraclavicular and right paratracheal lymph nodes, he was interested in pursuing local/regional treatment. His further treatment was complicated by COVID-19 virus infection, from which he had uneventful recovery. His restaging CT scans of the neck and chest on 04/30/2020 did show further progression of the lymphadenopathy, but still with localized involvement. He then began radiation to the right neck/upper chest on 05/04/2020. He completed treatment on 06/15/2020 to a total dose of 6000 cGy. He was then followed on observation/expectant management. His restaging CT scans on 09/01/2020 showed no evidence of disease progression. At his follow-up visit on 10/06/2020 he had developed some coughing spells, occasionally with associated hemoptysis. His repeat chest CT on 10/13/2020 showed progression of the right paratracheal mass with apparent extension into the trachea. This was confirmed by bronchoscopy on 10/14/2020, with evidence of exophytic mass originating from the posterior tracheal membrane at the level of about 3.5 to 4 cm below the vocal cords with associated 85 to 90% occlusion of the lumen. Also noted that time was development of a new metastatic lesion in the liver. He was admitted to [facility] where he underwent a palliative surgical procedure. He has been recommended now to begin further treatment with modified FOLFOX chemotherapy. I will arrange to have chemotherapy started soon as possible. I am told that there are now additional pathologic studies pending, including an next generation sequencing study. I will be checking with the medical oncologist at [facility] regarding his specific chemotherapy regimen, as I assume with HER-2/quoc positive disease they would want to include a targeted therapy with his regimen. I did review anticipated side effects with the chemotherapy which may include nausea/vomiting, fatigue, alopecia, mouth sores, diarrhea, low blood counts, and peripheral neuropathy, among others. Signed By: Jurgen Kearns M.D. <<Signature on File>>
== END 2020-11-03 13:02 | disposition home or self-care (01) ==
PROVIDERS: PCP Internal Medicine; Visit Provider Internal Medicine Medical Oncology
DX: C15.5 Malignant neoplasm of lower third of esophagus (principal); C77.1 Secondary and unspecified malignant neoplasm of intrathoracic lymph nodes; I10 Essential (primary) hypertension; E78.5 Hyperlipidemia, unspecified; E11.9 Type 2 diabetes mellitus without complications; G47.33 Obstructive sleep apnea (adult) (pediatric); M19.90 Unspecified osteoarthritis, unspecified site; H40.9 Unspecified glaucoma; N20.0 Calculus of kidney; K57.92 Diverticulitis of intestine, part unspecified, without perforation or abscess without bleeding; Z79.899 Other long term (current) drug therapy
CPT/HCPCS: 99214

== ENCOUNTER 2020-12-01 05:34 | Outpatient (RCR) | payer BC, SELFPAY ==
[2020-11-17 08:42] LABS: Basophils % 0.5 %; Eosinophils # 0.1 10^3/uL (0.0-0.8); Eosinophils % 1.8 %; Hematocrit 44.6 % (42.0-52.0); Hemoglobin 15.1 g/dL (11.7-16.6); Lymphocytes # 0.9 10^3/uL (0.8-4.8); Lymphocytes % 11.6 %; Mean Corpuscular HGB Conc 33.9 g/dL (30.0-36.0); Mean Corpuscular Hemoglobin 30.4 pg (28.0-34.0); Mean Corpuscular Volume 89.9 fL (80-94); Mean Platelet Volume 10.2 fL (7.4-10.4); Monocytes # 0.7 10^3/uL (0.2-0.9); Monocytes % 9.4 %; Neutrophils % 76.3 %; Nucleated Red Blood Cells % 0 %; Platelet Count 177 10^3/cmm (130-400); Red Blood Count 4.96 10^6/uL (4.1-5.3); Red Cell Distribution Width 13.7 % (12.1-15.1); White Blood Count 7.3 10^3/uL (4.0-10.0)
[2020-11-17 08:52] LABS: Alanine Aminotransferase 11 U/L (0-41); Albumin Level 3.9 g/dL (3.5-5.2); Alkaline Phosphatase 99 IU/L (40-130); Anion Gap 12.4 (5-19); Aspartate Amino Transferase 11 U/L (0-40); Blood Urea Nitrogen 7 mg/dL (6-20); Carbon Dioxide 29 mmol/L (22-29); Chloride 99 mmol/L (98-107); Globulin 2.7 g/dL (1.3-4.6); Glomerular Filtration Rate 173.9 mL/min (90-130); Glucose 242 mg/dL (65-115); Osmolality Calculated 290 mOsm/kg (285-295); Potassium 3.4 mmol/L (3.5-5.1); Sodium 137 mmol/L (136-145); Total Bilirubin 0.3 mg/dL (0.15-1.2); Total Protein 6.6 g/dL (6.6-8.7)
[2020-11-17] MEDS: diphenhydrAMINE 50 mg/mL SDV 1mL 25 MG IV (09:42)
[2020-11-17] MEDS: acetaminophen 325 mg Tablet 650 MG PO (09:42)
[2020-11-17] MEDS: dextrose 5% 250 ML 75 ML IV (09:46)
[2020-11-17] MEDS: palonosetron 0.25 mg/5 mL SDV IVP (09:46)
[2020-11-17] MEDS: LORazepam 2 mg/mL INJ 1 mL 0.5 MG IVP (10:58)
[2020-11-23 12:10] LABS: Basophils % 0.7 %; Eosinophils # 0.1 10^3/uL (0.0-0.8); Eosinophils % 1.2 %; Hematocrit 43.7 % (42.0-52.0); Hemoglobin 14.9 g/dL (11.7-16.6); Lymphocytes # 0.6 10^3/uL (0.8-4.8); Lymphocytes % 9.3 %; Mean Corpuscular HGB Conc 34.1 g/dL (30.0-36.0); Mean Corpuscular Hemoglobin 30.3 pg (28.0-34.0); Mean Platelet Volume 10.4 fL (7.4-10.4); Monocytes # 0.3 10^3/uL (0.2-0.9); Monocytes % 4.6 %; Neutrophils # 4.95 10^3/uL (1.8-7.7); Neutrophils % 83.9 %; Nucleated Red Blood Cells % 0 %; Platelet Count 160 10^3/cmm (130-400); Red Blood Count 4.91 10^6/uL (4.1-5.3); Red Cell Distribution Width 13.4 % (12.1-15.1); White Blood Count 5.9 10^3/uL (4.0-10.0)
[2020-11-23 12:35] LABS: Alanine Aminotransferase 16 U/L (0-41); Albumin Level 4.1 g/dL (3.5-5.2); Alkaline Phosphatase 90 IU/L (40-130); Anion Gap 13.8 (5-19); Aspartate Amino Transferase 15 U/L (0-40); Blood Urea Nitrogen 11 mg/dL (6-20); Carbon Dioxide 28 mmol/L (22-29); Chloride 100 mmol/L (98-107); Globulin 2.6 g/dL (1.3-4.6); Glomerular Filtration Rate 173.9 mL/min (90-130); Glucose 166 mg/dL (65-115); Osmolality Calculated 289 mOsm/kg (285-295); Potassium 3.8 mmol/L (3.5-5.1); Sodium 138 mmol/L (136-145); Total Bilirubin 0.3 mg/dL (0.15-1.2); Total Protein 6.7 g/dL (6.6-8.7)
[2020-12-01 09:09] LABS: Basophils % 0.5 %; Eosinophils # 0.1 10^3/uL (0.0-0.8); Eosinophils % 2.5 %; Hematocrit 43.1 % (42.0-52.0); Hemoglobin 14.5 g/dL (11.7-16.6); Lymphocytes # 0.5 10^3/uL (0.8-4.8); Lymphocytes % 13.3 %; Mean Corpuscular HGB Conc 33.6 g/dL (30.0-36.0); Mean Corpuscular Hemoglobin 30.1 pg (28.0-34.0); Mean Corpuscular Volume 89.4 fL (80-94); Mean Platelet Volume 9.7 fL (7.4-10.4); Monocytes # 0.5 10^3/uL (0.2-0.9); Monocytes % 12.3 %; Neutrophils % 71.2 %; Nucleated Red Blood Cells % 0 %; Platelet Count 143 10^3/cmm (130-400); Red Blood Count 4.82 10^6/uL (4.1-5.3); White Blood Count 4.1 10^3/uL (4.0-10.0)
[2020-12-01 09:20] LABS: Alanine Aminotransferase 17 U/L (0-41); Alkaline Phosphatase 92 IU/L (40-130); Anion Gap 12.9 (5-19); Aspartate Amino Transferase 17 U/L (0-40); Blood Urea Nitrogen 8 mg/dL (6-20); Calcium 8.6 mg/dL (8.5-10.5); Carbon Dioxide 30 mmol/L (22-29); Chloride 101 mmol/L (98-107); Globulin 2.5 g/dL (1.3-4.6); Glomerular Filtration Rate 173.9 mL/min (90-130); Glucose 99 mg/dL (65-115); Osmolality Calculated 290 mOsm/kg (285-295); Sodium 141 mmol/L (136-145); Total Bilirubin 0.4 mg/dL (0.15-1.2); Total Protein 6.5 g/dL (6.6-8.7)
[2020-12-01 09:28] LABS: Potassium 2.9 mmol/L (3.5-5.1)
[2020-12-01] MEDS: acetaminophen 325 mg Tablet 650 MG PO (10:05)
[2020-12-01] MEDS: diphenhydrAMINE 50 mg/mL SDV 1mL 25 MG IVP (10:25)
[2020-12-01] MEDS: sodium chloride 0.9% 250 ML 75 ML IV (10:25)
[2020-12-01] MEDS: palonosetron 0.25 mg/5 mL SDV IVP (10:27)
[2020-12-01] MEDS: potassium chloride 20 MEQ in sodium chloride 0.9% 500 ML 255 MEQ IV (10:55)
[2020-12-01] MEDS: dextrose 5% 250 ML 80 ML IV (12:04)
[2020-12-01] MEDS: LORazepam 2 mg/mL INJ 1 mL 0.5 MG IVP (12:14)
--- NOTE | 2020-12-01 16:56 | ONC FU_ITS ---
Dr. Kearns Patient Follow-Up Note Patient: Ricky Flores Unit #: [id number]: [id number] Dicatated By: Jurgen Keanrs M.D.Date of Visit:Dec 01, 2020 Onc Med Follow-up/Prog Note Chief Complaint: Esophageal cancer. 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 His disease was stage IIIB (ypT3, ypN1, M0) at initial diagnosis in June 2018, but with subsequent progression to stage IV (M1). He had presented with iron deficiency anemia and weight loss. He underwent EGD and colonoscopy on 06/15/2018. The colonoscopy showed 2 small sessile polyps in the mid transverse colon, both of which were removed endoscopically. The EGD showed a circumferential and partially obstructing, large size, malignant appearing mass in the lower third esophagus. The stomach and duodenum appeared unremarkable. Biopsy of the esophageal mass showed well-differentiated infiltrating adenocarcinoma with papillary histologic pattern. On subsequent evaluation, the tumor was confirmed to be MSI stable. It did show overexpression of HER-2/quoc, 3+ by IHC and amplification ratio by FISH of 1.8 with 7.3 HER-2 copies/cell. Staging CT scans of the chest, abdomen, and pelvis on 06/15/2018 showed increased soft tissue thickening suggested at the level of the gastroesophageal junction, estimated at 5 cm in width and 4 cm in depth. There was mild thickening of the wall of the distal esophagus. A superior right paratracheal lymph node measured 1.9 x 2.8 cm. The abdomen showed 2 adjacent perigastric lymph nodes near the greater curvature, located between the stomach and pancreas, measuring 1.7 and 2.2 cm. There was no other intra-abdominal or retroperitoneal adenopathy noted, and there was no evidence of other metastatic disease. Staging PET/CT on 06/23/2018 showed a 3 cm hypermetabolic segment of the distal esophagus with SUV 15.0, consistent with primary malignancy. A 2.2 cm gastrohepatic lymph node had SUV 4.1, consistent with local metastatic disease. There was no evidence for other metastatic involvement. The superior right paratracheal lymph node was noted to be FDG negative, consistent with benign disease. He underwent definitive treatment through the [facility]. His treatment included neoadjuvant chemoradiation utilizing weekly carboplatin/Taxol followed by [place] [facility] esophagectomy on 10/30/2018. I do not have the complete pathology report available, but the final staging was IIIB (ypT3, ypN1, M0). He was then followed on observation/expectant management. His surveillance CT scans of the chest, abdomen, and pelvis at [facility] on 01/15/2020 showed interval development of an 8 mm pulmonary nodule in the left major fissure and a 1.1 cm left lower lobe medial basal segment nodule, concerning for metastatic disease. A few other smaller nodules measuring 3 mm or less were also seen in the left lower lobe. There was interval enlargement of the right upper paratracheal lymph node measuring 2 cm. He then underwent EBUS with FNA biopsy of the right paratracheal lymph node on 02/05/2020. Pathology showed metastatic adenocarcinoma consistent with esophageal primary. He had medical oncology follow-up with Dr. Kulwant Knight on 02/13/2020. He was recommended to undergo placement of Port-A-Cath venous access device and to begin a course of chemotherapy with modified FOLFOX. A [employer] next generation sequencing study also was requested, biut there was insufficient material available to complete the study. A repeat PET/CT on 02/22/2020 showed interval development of 2 malignant lymph nodes, the dominant lesion in the right paratracheal area measuring 2.9 cm with SUV 6.8. The second was a lesion in the right cervical level IV territory measuring 2.6 x 1.6 cm, SUV 4.0. There were no other sites of abnormal FDG uptake on that study. With insufficient tissue sample available for any additional studies, I had requested a [employer] next generation sequencing study by liquid biopsy. 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 There were no actionable mutations reported. I had been seeing him for a follow-up visit on 03/27/2020. With his disease apparently localized to the right paratracheal and lower right supraclavicular nodes, he was interested in pursuing local/regional treatment, and he then had radiation oncology consultation with Dr. Fidel Coronado. His further management was complicated by development of COVID-19 virus infection, confirmed on 04/13/2020. Restaging chest CT on 04/30/2020 showed masslike right paratracheal lymphadenopathy measuring 3.8 x 2.7 cm with mild mass-effect on the thoracic trachea. It had increased from 2.7 x 2.5 cm on the February PET/CT. A prominent left hilar lymph node measuring 12 mm appeared unchanged. The fibrotic appearing nodule in the left lower lobe on the January 2020 CT appeared to have resolved. Neck CT showed a large heterogeneous enhancing right supraclavicular lymph node measuring 3.5 x 1.8 cm, increased from 2.6 x 1.9 cm on the February PET/CT. He was able to begin radiation to the involved area in the right neck/upper chest on 05/04/2020. He completed treatment on 06/15/2020 to a total dose of [address] scans of the chest, abdomen, and pelvis on 07/20/2020 showed slight increase in the right paratracheal mass/adenopathy, measuring approximately 4 cm in maximum diameter. There was noted to be increasing tracheal displacement, but that was compared to the January 2020 CT scan. I reviewed the scans with the radiologist, and it appeared that the progression was very minimal. As such, I had recommended that he be just be followed on close observation. Restaging CT scans on 09/01/2020 showed slight interval improvement in the right supraclavicular lymph node measuring 1.9 x 1.5 x 1.2 cm. There was also slight improvement in right paratracheal lymphadenopathy measuring 2.3 x 2.2 x 3.3 cm. There was no evidence of disease progression. His repeat chest CT on 10/13/2020 showed significant progression in the right paratracheal lymphadenopathy. A soft tissue nodule was noted to be extending into the tracheal lumen. Also noted was development of a new lesion in the right lobe of the liver measuring 2.6 x 3.1 cm. Bronchoscopy on 10/14/2020 showed an exophytic mass originating from the posterior tracheal membrane located about 3.5 to 4 cm below the vocal cords. It was noted to occlude approximately 85 to 90% of the lumen. He was transferred urgently to [facility] for admission, and he subsequently underwent a palliative surgical procedure. Repeat CT scans at [facility] on 11/02/2020 showed residual right paratracheal mass measuring 3.3 x 3.0 cm with decreased luminal extension into the trachea. There was unchanged right supraclavicular lymphadenopathy measuring 1.4 x 1.7 cm. There was redemonstration of hepatic metastasis measuring 3.4 x 2.6 cm, with slight interval increase. He then returned here to begin systemic therapy with modified FOLFOX chemotherapy in combination with Herceptin. His other medical illnesses include hypertension, hypertriglyceridemia, type II diabetes, hypothyroidism, androgen deficiency, obstructive sleep apnea, degenerative arthritis, and glaucoma. He also has history of diverticulitis and a history of recurrent episodes of nephrolithiasis. His other surgeries include cataract excision from the left eye, carpal tunnel release on the left, vasectomy, and extracorporeal shockwave lithotripsy. He underwent right total hip arthroplasty on 07/29/2019. He is a non-smoker, but he had chewed tobacco for 35 years, estimated 2 to 3 cans/day. He does not drink alcohol. INTERIM HISTORY: He began cycle 1 of modified FOLFOX with Herceptin on 11/17/2020. He tolerated it without acute toxicity. He subsequently had follow-up with his surgeon at [facility]. It was noted that he was showing some regrowth of the tracheal mass, and he is tentatively scheduled to return there for re-resection on 12/09/2020. He is seen for a scheduled visit. He has been feeling pretty good. He had been having generalized aching and he was not getting any significant benefit taking hydrocodone/APAP. He then tried 5 mg immediate release oxycodone, and without his just been feeling much better generally. He has had improvement in his energy/activity tolerance. His ECOG score is 1. Appetite is still not real good. His weight is stable now. He does not have fever or night sweats. He has had no mouth sores. He has no difficulty swallowing. He still has cough periodically, but he has had no further hemoptysis. He does not complain of shortness of breath or chest pain. He had just one episode of nausea. He has no other GI or complaints. He currently is not having significant joint or bone pain. He has had a little bit of headache. He did experience neuropathy symptoms in his mouth and his fingertips lasting for 3 days after his treatment. It has completely resolved. Medications: Bystolic 1 Tablet (of 10 mg) Oral daily, Fluconazole 1 Tablet (of 100 mg) Oral daily, Gabapentin 1 Capsule (of 300 mg) Oral b.i.d., Glimepiride 1 Tablet (of 4 mg) Oral b.i.d., HumaLOG 200 Units (of 100 Units/mL) Subcutaneous PRN, Lantus 40 Units (of 100 Units/mL) Subcutaneous daily, Levothyroxine Sodium 1 Tablet (of 175 mcg) Oral daily, Nitrofurantoin Macrocrystal 1 Capsule (of 100 mg) Oral daily, Pantoprazole Sodium 1 Tablet (of 40 mg) Tablet, enteric coated Oral daily, Tamsulosin HCl 1 Cartridge (of 0.4 mg) Capsule Oral b.i.d., Timolol Maleate 1 Drop(s) (of 0.5 %) Solution Ophthalmic daily Allergies: Morphine Sulfate Vital Signs: Performed on Dec 01, 2020 09:16 Height - 75.00 in Weight - 229.8 lbs (HIGH) BSA - 2.33 sq.m BMI - 28.72 Temperature - 97.6 F (LOW) Pulse - 52 /min (LOW) Respiration - 18 /min BP - 144/83 mm(hg) (HIGH) O2 Sat - 97 % Pain - 5 Fatigue - 7 Physical Examination: Constitutional - He looks good generally, Eyes - Sclerae nonicteric. Conjunctivae clear, ENMT - No lesions noted in the oral cavity, Hematologic/Lymphatic - No cervical, clavicular, or axillary adenopathy, Respiratory - Lungs are clear with good air movement bilaterally, Cardiovascular - Heart rhythm is regular. There is no murmur, gallop or rub noted, Abdomen - Soft. Liver and spleen are not enlarged. There is no abdominal mass or ascites noted and there is no inguinal adenopathy, Extremities - No edema, Neurologic - No focal neurologic deficits noted. Lab/Imaging: Test performed on Dec 01, 2020 08:14 Sodium 141 mmol/L Potassium 2.9 mmol/L Chloride 101 mmol/L CO2 30 mmol/L Anion Gap 12.9 BUN 8 mg/dL Creatinine 0.5 mg/dL Cr Clearance (Est) 251.4700 mL/min eGFR 173.9 mL/min Glucose 99 mg/dL Osmolality - Calculated 290 mOsm/kg Calcium 8.6 mg/dL Protein, Total 6.5 g/dL Albumin 4.0 g/dL Globulin 2.5 g/dL Bilirubin, Total 0.4 mg/dL ALT (SGPT) 17 U/L AST (SGOT) 17 U/L Alkaline Phosphatase 92 IU/L WBC 4.1 10 3/uL RBC 4.82 10 6/uL HGB 14.5 g/dL HCT 43.1 % MCV 89.4 fL MCH 30.1 pg MCHC 33.6 g/dL RDW 14.0 % Platelet Count 143 10 3/cmm MPV 9.7 fL Neutrophils 2.90 10 3/uL Lymphocytes 0.5 10 3/uL Monocytes 0.5 10 3/uL Eosinophils 0.1 10 3/uL Basophils 0.0 10 3/uL Neutrophil % 71.2 % Lymphocyte % 13.3 % Monocyte % 12.3 % Eosinophil % 2.5 % Basophils % 0.5 % NRBC % 0 % Problem List: 1. Well differentiated infiltrating adenocarcinoma involving the lower third of the esophagus, HER-2/quoc positive. He disease was stage IIIB (ypT3, ypN1, M0) at initial diagnosis in June 2018, but with subsequent progression to stage IV (M1), with involvement in the right paratracheal lymph node confirmed by EBUS/FNA biopsy on 02/05/2020. His next generation sequencing study by liquid biopsy showed no actionable mutations. 2. Hypertension. 3. Hyperlipidemia. 4. Type II diabetes. 5. Obstructive sleep apnea. 6. Degenerative arthritis. 7. He has posttraumatic glaucoma of the left eye. 8. He has a history of recurrent episodes of nephrolithiasis. 9. He has a history of diverticulitis. Problems Addressed with this Encounter and Plan: 1. Patient with well differentiated infiltrating adenocarcinoma involving the lower third of the esophagus, HER-2/quoc positive. He disease was stage IIIB (ypT3, ypN1, M0) at initial diagnosis in June 2018. His initial treatment included neoadjuvant chemoradiation utilizing weekly carboplatin/Taxol followed by [place] [facility] esophagectomy on 10/30/2018. He had subsequent progression to stage IV (M1), with involvement in the right paratracheal lymph node confirmed by EBUS/FNA biopsy on 02/05/2020. His staging PET/CT showed uptake in the known involved right paratracheal lymph node and an additional area of uptake in a right cervical level IV territory node measuring 2.6 x 1.6 cm, SUV 4.0. With disease localized to right supraclavicular and right paratracheal lymph nodes, he was interested in pursuing local/regional treatment. His further treatment was complicated by COVID-19 virus infection, from which he had uneventful recovery. His restaging CT scans of the neck and chest on 04/30/2020 did show further progression of the lymphadenopathy, but still with localized involvement. He then began radiation to the right neck/upper chest on 05/04/2020. He completed treatment on 06/15/2020 to a total dose of [address] scans on 09/01/2020 showed no evidence of disease progression. At his follow-up visit on 10/06/2020 he had developed some coughing spells, occasionally with associated hemoptysis. His repeat chest CT on 10/13/2020 showed progression of the right paratracheal mass with apparent extension into the trachea. This was confirmed by bronchoscopy on 10/14/2020, with evidence of exophytic mass originating from the posterior tracheal membrane at the level of about 3.5 to 4 cm below the vocal cords with associated 85 to 90% occlusion of the lumen. Also noted at that time was development of a new metastatic lesion in the liver. He was admitted to [facility] where he underwent a palliative surgical procedure. On 11/18/2019 he began cycle 1 of systemic therapy with modified FOLFOX chemotherapy in combination with Herceptin. He had mild neuropathy lasting 3 days after that treatment. He otherwise tolerated it well, and he does appear to be showing some symptomatic improvement. He will proceed now with his 2nd cycle of treatment. Dosages remain the same. He is tentatively scheduled to have re-resection surgery at [facility] next week. He will need repeat Covid testing for that procedure, and I also will want to repeat his CBC on Monday to make sure his blood counts are adequate. I will see him again in 2 weeks. 2. Hypokalemia, cause uncertain. I will check his magnesium today. He will be given IV potassium replacement with his chemotherapy today and he will start an oral potassium supplement 10 mEq twice daily. His basic metabolic profile will be rechecked on Monday. Signed By: Jurgen Kearns M.D. <<Signature on File>>
[2020-12-01 17:15] LABS: Magnesium 1.9 mg/dL (1.7-2.3)
== END 2020-12-02 23:59 | disposition home or self-care (01) ==
LOC: ONCMED 05:34
PROVIDERS: PCP Internal Medicine; Visit Provider Internal Medicine Medical Oncology
DX: Z51.12 Encounter for antineoplastic immunotherapy (principal); C15.5 Malignant neoplasm of lower third of esophagus; C77.1 Secondary and unspecified malignant neoplasm of intrathoracic lymph nodes; C78.7 Secondary malignant neoplasm of liver and intrahepatic bile duct; C78.39 Secondary malignant neoplasm of other respiratory organs; E87.6 Hypokalemia; Z92.21 Personal history of antineoplastic chemotherapy; Z79.899 Other long term (current) drug therapy; Z86.16 Personal history of COVID-19; Z92.3 Personal history of irradiation
CPT/HCPCS: 36591; 80053; 83735; 85025; 96367; 96368; 96375; 96411; 96413; 96415; 96416; 96417; 96523; 99214; J0640; J1100; J1200; J2060; J2469; J3480; J7040; J7050; J9190; J9263; J9355

== ENCOUNTER → 2020-12-05 11:23 | Outpatient (BNVA) | payer BC, SELFPAY | PROVIDERS: PCP Internal Medicine; Visit Provider Internal Medicine Medical Oncology | DX: C78.89 Secondary malignant neoplasm of other digestive organs (principal) | CPT/HCPCS: 87635 ==

== ENCOUNTER 2020-12-31 05:39 | Outpatient (RCR) | payer BC, SELFPAY ==
[2020-12-07 10:45] LABS: Basophils % 1.5 %; Eosinophils # 0.1 10^3/uL (0.0-0.8); Eosinophils % 2.5 %; Hematocrit 42.7 % (42.0-52.0); Hemoglobin 14.6 g/dL (11.7-16.6); Lymphocytes # 0.5 10^3/uL (0.8-4.8); Lymphocytes % 24.5 %; Mean Corpuscular HGB Conc 34.2 g/dL (30.0-36.0); Mean Corpuscular Hemoglobin 30.2 pg (28.0-34.0); Mean Corpuscular Volume 88.4 fL (80-94); Mean Platelet Volume 9.7 fL (7.4-10.4); Monocytes # 0.3 10^3/uL (0.2-0.9); Neutrophils # 1.16 10^3/uL (1.8-7.7); Nucleated Red Blood Cells % 0 %; Platelet Count 164 10^3/cmm (130-400); Red Blood Count 4.83 10^6/uL (4.1-5.3); Red Cell Distribution Width 13.6 % (12.1-15.1)
[2020-12-07 11:11] LABS: Alanine Aminotransferase 15 U/L (0-41); Albumin Level 4.2 g/dL (3.5-5.2); Alkaline Phosphatase 92 IU/L (40-130); Anion Gap 12.7 (5-19); Aspartate Amino Transferase 16 U/L (0-40); Blood Urea Nitrogen 11 mg/dL (6-20); Calcium 8.9 mg/dL (8.5-10.5); Carbon Dioxide 29 mmol/L (22-29); Chloride 97 mmol/L (98-107); Globulin 2.4 g/dL (1.3-4.6); Glomerular Filtration Rate 173.9 mL/min (90-130); Glucose 188 mg/dL (65-115); Osmolality Calculated 284 mOsm/kg (285-295); Potassium 3.7 mmol/L (3.5-5.1); Sodium 135 mmol/L (136-145); Total Bilirubin 0.4 mg/dL (0.15-1.2); Total Protein 6.6 g/dL (6.6-8.7)
[2020-12-15 08:40] LABS: Basophils % 0.4 %; Eosinophils # 0.1 10^3/uL (0.0-0.8); Eosinophils % 1.6 %; Hematocrit 41.6 % (42.0-52.0); Hemoglobin 14.1 g/dL (11.7-16.6); Lymphocytes # 0.6 10^3/uL (0.8-4.8); Lymphocytes % 13.1 %; Mean Corpuscular HGB Conc 33.9 g/dL (30.0-36.0); Mean Corpuscular Hemoglobin 30.2 pg (28.0-34.0); Mean Corpuscular Volume 89.1 fL (80-94); Mean Platelet Volume 9.5 fL (7.4-10.4); Monocytes # 0.8 10^3/uL (0.2-0.9); Monocytes % 15.6 %; Neutrophils # 3.36 10^3/uL (1.8-7.7); Neutrophils % 68.9 %; Nucleated Red Blood Cells % 0 %; Platelet Count 111 10^3/cmm (130-400); Red Blood Count 4.67 10^6/uL (4.1-5.3); Red Cell Distribution Width 14.6 % (12.1-15.1); White Blood Count 4.9 10^3/uL (4.0-10.0)
[2020-12-15 09:12] LABS: Alanine Aminotransferase 15 U/L (0-41); Alkaline Phosphatase 91 IU/L (40-130); Anion Gap 13.6 (5-19); Aspartate Amino Transferase 13 U/L (0-40); Blood Urea Nitrogen 10 mg/dL (6-20); Calcium 8.6 mg/dL (8.5-10.5); Carbon Dioxide 30 mmol/L (22-29); Chloride 100 mmol/L (98-107); Globulin 2.3 g/dL (1.3-4.6); Glomerular Filtration Rate 173.9 mL/min (90-130); Glucose 207 mg/dL (65-115); Osmolality Calculated 295 mOsm/kg (285-295); Potassium 3.6 mmol/L (3.5-5.1); Sodium 140 mmol/L (136-145); Total Bilirubin 0.4 mg/dL (0.15-1.2); Total Protein 6.3 g/dL (6.6-8.7)
[2020-12-15] MEDS: palonosetron 0.25 mg/5 mL SDV IVP (10:48)
[2020-12-15] MEDS: sodium chloride 0.9% 250 ML 75 ML IV (10:48)
[2020-12-15] MEDS: acetaminophen 325 mg Tablet 650 MG PO (10:50)
[2020-12-15] MEDS: diphenhydrAMINE 50 mg/mL SDV 1mL 25 MG IV (11:10)
--- NOTE | 2020-12-16 07:44 | ONC FU_ITS ---
Dr. Kearns Patient Follow-Up Note Patient: Ricky Flores Unit #: [id number]: [id number] Dicatated By: Jurgen Kearns M.D.Date of Visit:Dec 15, 2020 Onc Med Follow-up/Prog Note Chief Complaint: Esophageal cancer. 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 His disease was stage IIIB (ypT3, ypN1, M0) at initial diagnosis in June 2018, but with subsequent progression to stage IV (M1). He had presented with iron deficiency anemia and weight loss. He underwent EGD and colonoscopy on 06/15/2018. The colonoscopy showed 2 small sessile polyps in the mid transverse colon, both of which were removed endoscopically. The EGD showed a circumferential and partially obstructing, large size, malignant appearing mass in the lower third esophagus. The stomach and duodenum appeared unremarkable. Biopsy of the esophageal mass showed well-differentiated infiltrating adenocarcinoma with papillary histologic pattern. On subsequent evaluation, the tumor was confirmed to be MSI stable. It did show overexpression of HER-2/quoc, 3+ by IHC and amplification ratio by FISH of 1.8 with 7.3 HER-2 copies/cell. Staging CT scans of the chest, abdomen, and pelvis on 06/15/2018 showed increased soft tissue thickening suggested at the level of the gastroesophageal junction, estimated at 5 cm in width and 4 cm in depth. There was mild thickening of the wall of the distal esophagus. A superior right paratracheal lymph node measured 1.9 x 2.8 cm. The abdomen showed 2 adjacent perigastric lymph nodes near the greater curvature, located between the stomach and pancreas, measuring 1.7 and 2.2 cm. There was no other intra-abdominal or retroperitoneal adenopathy noted, and there was no evidence of other metastatic disease. Staging PET/CT on 06/23/2018 showed a 3 cm hypermetabolic segment of the distal esophagus with SUV 15.0, consistent with primary malignancy. A 2.2 cm gastrohepatic lymph node had SUV 4.1, consistent with local metastatic disease. There was no evidence for other metastatic involvement. The superior right paratracheal lymph node was noted to be FDG negative, consistent with benign disease. He underwent definitive treatment through the [facility]. His treatment included neoadjuvant chemoradiation utilizing weekly carboplatin/Taxol followed by [facility] esophagectomy on 10/30/2018. I do not have the complete pathology report available, but the final staging was IIIB (ypT3, ypN1, M0). He was then followed on observation/expectant management. His surveillance CT scans of the chest, abdomen, and pelvis at [facility] on 01/15/2020 showed interval development of an 8 mm pulmonary nodule in the left major fissure and a 1.1 cm left lower lobe medial basal segment nodule, concerning for metastatic disease. A few other smaller nodules measuring 3 mm or less were also seen in the left lower lobe. There was interval enlargement of the right upper paratracheal lymph node measuring 2 cm. He then underwent EBUS with FNA biopsy of the right paratracheal lymph node on 02/05/2020. Pathology showed metastatic adenocarcinoma consistent with esophageal primary. He had medical oncology follow-up with Dr. Kulwant Knight on 02/13/2020. He was recommended to undergo placement of Port-A-Cath venous access device and to begin a course of chemotherapy with modified FOLFOX. A [employer] next generation sequencing study also was requested, biut there was insufficient material available to complete the study. A repeat PET/CT on 02/22/2020 showed interval development of 2 malignant lymph nodes, the dominant lesion in the right paratracheal area measuring 2.9 cm with SUV 6.8. The second was a lesion in the right cervical level IV territory measuring 2.6 x 1.6 cm, SUV 4.0. There were no other sites of abnormal FDG uptake on that study. With insufficient tissue sample available for any additional studies, I had requested a [employer] next generation sequencing study by liquid biopsy. 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 There were no actionable mutations reported. I had been seeing him for a follow-up visit on 03/27/2020. With his disease apparently localized to the right paratracheal and lower right supraclavicular nodes, he was interested in pursuing local/regional treatment, and he then had radiation oncology consultation with Dr. Fidel Coronado. His further management was complicated by development of COVID-19 virus infection, confirmed on 04/13/2020. Restaging chest CT on 04/30/2020 showed masslike right paratracheal lymphadenopathy measuring 3.8 x 2.7 cm with mild mass-effect on the thoracic trachea. It had increased from 2.7 x 2.5 cm on the February PET/CT. A prominent left hilar lymph node measuring 12 mm appeared unchanged. The fibrotic appearing nodule in the left lower lobe on the January 2020 CT appeared to have resolved. Neck CT showed a large heterogeneous enhancing right supraclavicular lymph node measuring 3.5 x 1.8 cm, increased from 2.6 x 1.9 cm on the February PET/CT. He was able to begin radiation to the involved area in the right neck/upper chest on 05/04/2020. He completed treatment on 06/15/2020 to a total dose of [address] scans of the chest, abdomen, and pelvis on 07/20/2020 showed slight increase in the right paratracheal mass/adenopathy, measuring approximately 4 cm in maximum diameter. There was noted to be increasing tracheal displacement, but that was compared to the January 2020 CT scan. I reviewed the scans with the radiologist, and it appeared that the progression was very minimal. As such, I had recommended that he be just be followed on close observation. Restaging CT scans on 09/01/2020 showed slight interval improvement in the right supraclavicular lymph node measuring 1.9 x 1.5 x 1.2 cm. There was also slight improvement in right paratracheal lymphadenopathy measuring 2.3 x 2.2 x 3.3 cm. There was no evidence of disease progression. His repeat chest CT on 10/13/2020 showed significant progression in the right paratracheal lymphadenopathy. A soft tissue nodule was noted to be extending into the tracheal lumen. Also noted was development of a new lesion in the right lobe of the liver measuring 2.6 x 3.1 cm. Bronchoscopy on 10/14/2020 showed an exophytic mass originating from the posterior tracheal membrane located about 3.5 to 4 cm below the vocal cords. It was noted to occlude approximately 85 to 90% of the lumen. He was transferred urgently to [facility] for admission, and he subsequently underwent a palliative surgical procedure. Repeat CT scans at [facility] on 11/02/2020 showed residual right paratracheal mass measuring 3.3 x 3.0 cm with decreased luminal extension into the trachea. There was unchanged right supraclavicular lymphadenopathy measuring 1.4 x 1.7 cm. There was redemonstration of hepatic metastasis measuring 3.4 x 2.6 cm, with slight interval increase. He then returned here to begin systemic therapy with modified FOLFOX chemotherapy in combination with Herceptin. His other medical illnesses include hypertension, hypertriglyceridemia, type II diabetes, hypothyroidism, androgen deficiency, obstructive sleep apnea, degenerative arthritis, and glaucoma. He also has history of diverticulitis and a history of recurrent episodes of nephrolithiasis. His other surgeries include cataract excision from the left eye, carpal tunnel release on the left, vasectomy, and extracorporeal shockwave lithotripsy. He underwent right total hip arthroplasty on 07/29/2019. He is a non-smoker, but he had chewed tobacco for 35 years, estimated 2 to 3 cans/day. He does not drink alcohol. INTERIM HISTORY: He began cycle 1 of modified FOLFOX with Herceptin on 11/17/2020. He tolerated it pretty well, though he did experience some fatigue and some neuropathy with it. He continued with cycle 2 of modified FOLFOX with Herceptin on 12/01/2020. In the meantime, he been to [facility] for follow-up with his surgeon at [facility]. He was noted to have some regrowth of the tracheal mass. He then returned and underwent re-resection of the tracheal mass on 12/09/2020. He is seen for a scheduled visit. He had no problems with his recent surgery. He did have more side effects with his second cycle of chemotherapy, in particular the neuropathy, which was significantly worse. He still has cold sensitivity in his mouth and he has persistent tingling in his fingers. He has had further decline in his energy and activity tolerance. His ECOG score is 2. His appetite is not good. He does not have fever or night sweats. He also developed some sores on his lip, and one is not completely resolved. He has some cough associated with sinus drainage. He does not complain of shortness of breath or chest pain. He has not been having nausea. Bowel function has been okay. He was having some difficulty voiding after his surgery, but that has resolved. He has normal joint pain. He has had sinus headache. He has not been dizzy or lightheaded. Medications: Bystolic 1 Tablet (of 10 mg) Oral daily, Fluconazole 1 Tablet (of 100 mg) Oral daily, Gabapentin 1 Capsule (of 300 mg) Oral b.i.d., Glimepiride 1 Tablet (of 4 mg) Oral b.i.d., HumaLOG 200 Units (of 100 Units/mL) Subcutaneous PRN, Lantus 40 Units (of 100 Units/mL) Subcutaneous daily, Levothyroxine Sodium 1 Tablet (of 175 mcg) Oral daily, Nitrofurantoin Macrocrystal 1 Capsule (of 100 mg) Oral daily, Pantoprazole Sodium 1 Tablet (of 40 mg) Tablet, enteric coated Oral daily, Tamsulosin HCl 1 Cartridge (of 0.4 mg) Capsule Oral b.i.d., Timolol Maleate 1 Drop(s) (of 0.5 %) Solution Ophthalmic daily Allergies: Morphine Sulfate Vital Signs: Performed on Dec 15, 2020 15:09 Height - 75.00 in Temperature - 97.6 F (LOW) Pulse - 74 /min Respiration - 18 /min BP - 166/86 mm(hg) (HIGH) O2 Sat - 98 % Pain - 4 Physical Examination: Constitutional - He looks pretty good generally, Eyes - Sclerae nonicteric. Conjunctivae clear, ENMT - There is a small residual ulceration on the upper lip. There are no lesions noted in the oral cavity, Hematologic/Lymphatic - No cervical, clavicular, or axillary adenopathy, Respiratory - Lungs are clear with good air movement bilaterally, Cardiovascular - Heart rhythm is regular. There is no murmur, gallop or rub noted, Abdomen - Soft. Liver and spleen are not enlarged. There is no abdominal mass or ascites noted and there is no inguinal adenopathy, Extremities - No edema, Neurologic - No focal neurologic deficits noted. Lab/Imaging: Test performed on Dec 15, 2020 08:28 Sodium 140 mmol/L Potassium 3.6 mmol/L Chloride 100 mmol/L CO2 30 mmol/L Anion Gap 13.6 BUN 10 mg/dL Creatinine 0.5 mg/dL Cr Clearance (Est) 251.4700 mL/min eGFR 173.9 mL/min Glucose 207 mg/dL Osmolality - Calculated 295 mOsm/kg Calcium 8.6 mg/dL Protein, Total 6.3 g/dL Albumin 4.0 g/dL Globulin 2.3 g/dL Bilirubin, Total 0.4 mg/dL ALT (SGPT) 15 U/L AST (SGOT) 13 U/L Alkaline Phosphatase 91 IU/L WBC 4.9 10 3/uL RBC 4.67 10 6/uL HGB 14.1 g/dL HCT 41.6 % MCV 89.1 fL MCH 30.2 pg MCHC 33.9 g/dL RDW 14.6 % Platelet Count 111 10 3/cmm MPV 9.5 fL Neutrophils 3.36 10 3/uL Lymphocytes 0.6 10 3/uL Monocytes 0.8 10 3/uL Eosinophils 0.1 10 3/uL Basophils 0.0 10 3/uL Neutrophil % 68.9 % Lymphocyte % 13.1 % Monocyte % 15.6 % Eosinophil % 1.6 % Basophils % 0.4 % NRBC % 0 % Problem List: 1. Well differentiated infiltrating adenocarcinoma involving the lower third of the esophagus, HER-2/quoc positive. He disease was stage IIIB (ypT3, ypN1, M0) at initial diagnosis in June 2018, but with subsequent progression to stage IV (M1), with involvement in the right paratracheal lymph node confirmed by EBUS/FNA biopsy on 02/05/2020. His next generation sequencing study by liquid biopsy showed no actionable mutations. 2. Hypertension. 3. Hyperlipidemia. 4. Type II diabetes. 5. Obstructive sleep apnea. 6. Degenerative arthritis. 7. He has posttraumatic glaucoma of the left eye. 8. He has a history of recurrent episodes of nephrolithiasis. 9. He has a history of diverticulitis. Problems Addressed with this Encounter and Plan: 1. Patient with well differentiated infiltrating adenocarcinoma involving the lower third of the esophagus, HER-2/quoc positive. He disease was stage IIIB (ypT3, ypN1, M0) at initial diagnosis in June 2018. His initial treatment included neoadjuvant chemoradiation utilizing weekly carboplatin/Taxol followed by [facility] esophagectomy on 10/30/2018. He had subsequent progression to stage IV (M1), with involvement in the right paratracheal lymph node confirmed by EBUS/FNA biopsy on 02/05/2020. His staging PET/CT showed uptake in the known involved right paratracheal lymph node and an additional area of uptake in a right cervical level IV territory node measuring 2.6 x 1.6 cm, SUV 4.0. With disease localized to right supraclavicular and right paratracheal lymph nodes, he was interested in pursuing local/regional treatment. His further treatment was complicated by COVID-19 virus infection, from which he had uneventful recovery. His restaging CT scans of the neck and chest on 04/30/2020 did show further progression of the lymphadenopathy, but still with localized involvement. He then began radiation to the right neck/upper chest on 05/04/2020. He completed treatment on 06/15/2020 to a total dose of [address] scans on 09/01/2020 showed no evidence of disease progression. At his follow-up visit on 10/06/2020 he had developed some coughing spells, occasionally with associated hemoptysis. His repeat chest CT on 10/13/2020 showed progression of the right paratracheal mass with apparent extension into the trachea. This was confirmed by bronchoscopy on 10/14/2020, with evidence of exophytic mass originating from the posterior tracheal membrane at the level of about 3.5 to 4 cm below the vocal cords with associated 85 to 90% occlusion of the lumen. Also noted at that time was development of a new metastatic lesion in the liver. He was admitted to [facility] where he underwent a palliative surgical procedure. On 11/18/2019 he began cycle 1 of systemic therapy with modified FOLFOX chemotherapy in combination with Herceptin. He had mild neuropathy lasting 3 days after that treatment. He also had some fatigue, but overall he tolerated it well. He continued with cycle 2 on 12/01/2020. With that treatment he had significantly more toxicity with increased fatigue, more severe neuropathy, and some stomatitis. In the meantime, he had returned to [facility] for re-resection of recurrent tracheal mass. He tolerated the surgery well. He will proceed now with his 3rd cycle of chemotherapy. Due to the persistent neuropathy, I am going to withhold the oxaliplatin. The Herceptin and 5-FU will be administered at full dosages. I will plan to restart the oxaliplatin at a reduced dosage with his next cycle, assuming the neuropathy has resolved. He returns in 2 weeks. 2. Hypokalemia. It has corrected with oral potassium supplementation. Signed By: Jurgen Kearns M.D. <<Signature on File>>
[2020-12-29 08:53] LABS: Basophils % 0.5 %; Eosinophils # 0.1 10^3/uL (0.0-0.8); Eosinophils % 2.1 %; Hematocrit 43.3 % (42.0-52.0); Hemoglobin 14.4 g/dL (11.7-16.6); Lymphocytes # 0.7 10^3/uL (0.8-4.8); Lymphocytes % 17.2 %; Mean Corpuscular HGB Conc 33.3 g/dL (30.0-36.0); Mean Corpuscular Hemoglobin 31.1 pg (28.0-34.0); Mean Corpuscular Volume 93.5 fL (80-94); Mean Platelet Volume 9.6 fL (7.4-10.4); Monocytes # 0.7 10^3/uL (0.2-0.9); Monocytes % 15.3 %; Neutrophils # 2.79 10^3/uL (1.8-7.7); Neutrophils % 64.7 %; Nucleated Red Blood Cells % 0 %; Platelet Count 104 10^3/cmm (130-400); Red Blood Count 4.63 10^6/uL (4.1-5.3); Red Cell Distribution Width 16.3 % (12.1-15.1); White Blood Count 4.3 10^3/uL (4.0-10.0)
[2020-12-29 09:20] LABS: Alanine Aminotransferase 19 U/L (0-41); Albumin Level 4.2 g/dL (3.5-5.2); Alkaline Phosphatase 101 IU/L (40-130); Anion Gap 12.9 (5-19); Aspartate Amino Transferase 23 U/L (0-40); Blood Urea Nitrogen 8 mg/dL (6-20); Calcium 8.8 mg/dL (8.5-10.5); Carbon Dioxide 27 mmol/L (22-29); Chloride 102 mmol/L (98-107); Globulin 2.2 g/dL (1.3-4.6); Glomerular Filtration Rate 140.9 mL/min (90-130); Glucose 112 mg/dL (65-115); Osmolality Calculated 285 mOsm/kg (285-295); Potassium 3.9 mmol/L (3.5-5.1); Sodium 138 mmol/L (136-145); Total Bilirubin 0.4 mg/dL (0.15-1.2); Total Protein 6.4 g/dL (6.6-8.7)
[2020-12-29] MEDS: dextrose 5% 250 ML 75 ML IV (10:40)
[2020-12-29] MEDS: diphenhydrAMINE 50 mg/mL SDV 1mL 25 MG IVP (10:43)
[2020-12-29] MEDS: acetaminophen 325 mg Tablet 650 MG PO (10:43)
[2020-12-29] MEDS: palonosetron 0.25 mg/5 mL SDV IVP (10:47)
--- NOTE | 2021-01-11 19:02 | ONC FU_ITS ---
[facility] Patient Note Patient: Ricky Flores Unit #: [id number]: [id number] Dictated By: Tri PalmerDate of Visit: Dec 29, 2020 Onc MED Follow-Up/Prog Note Chief Complaint: Esophageal cancer. 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 His disease was stage IIIB (ypT3, ypN1, M0) at initial diagnosis in June 2018, but with subsequent progression to stage IV (M1). He had presented with iron deficiency anemia and weight loss. He underwent EGD and colonoscopy on 06/15/2018. The colonoscopy showed 2 small sessile polyps in the mid transverse colon, both of which were removed endoscopically. The EGD showed a circumferential and partially obstructing, large size, malignant appearing mass in the lower third esophagus. The stomach and duodenum appeared unremarkable. Biopsy of the esophageal mass showed well-differentiated infiltrating adenocarcinoma with papillary histologic pattern. On subsequent evaluation, the tumor was confirmed to be MSI stable. It did show overexpression of HER-2/quoc, 3+ by IHC and amplification ratio by FISH of 1.8 with 7.3 HER-2 copies/cell. Staging CT scans of the chest, abdomen, and pelvis on 06/15/2018 showed increased soft tissue thickening suggested at the level of the gastroesophageal junction, estimated at 5 cm in width and 4 cm in depth. There was mild thickening of the wall of the distal esophagus. A superior right paratracheal lymph node measured 1.9 x 2.8 cm. The abdomen showed 2 adjacent perigastric lymph nodes near the greater curvature, located between the stomach and pancreas, measuring 1.7 and 2.2 cm. There was no other intra-abdominal or retroperitoneal adenopathy noted, and there was no evidence of other metastatic disease. Staging PET/CT on 06/23/2018 showed a 3 cm hypermetabolic segment of the distal esophagus with SUV 15.0, consistent with primary malignancy. A 2.2 cm gastrohepatic lymph node had SUV 4.1, consistent with local metastatic disease. There was no evidence for other metastatic involvement. The superior right paratracheal lymph node was noted to be FDG negative, consistent with benign disease. He underwent definitive treatment [facility] the [facility]. His treatment included neoadjuvant chemoradiation utilizing weekly carboplatin/Taxol followed by Mike Rusty esophagectomy on 10/30/2018. We do not have the complete pathology report available, but the final staging was IIIB (ypT3, ypN1, M0). He was then followed on observation/expectant management. His surveillance CT scans of the chest, abdomen, and pelvis at [facility] [place] on 01/15/2020 showed interval development of an 8 mm pulmonary nodule in the left major fissure and a 1.1 cm left lower lobe medial basal segment nodule, concerning for metastatic disease. A few other smaller nodules measuring 3 mm or less were also seen in the left lower lobe. There was interval enlargement of the right upper paratracheal lymph node measuring 2 cm. He then underwent EBUS with FNA biopsy of the right paratracheal lymph node on 02/05/2020. Pathology showed metastatic adenocarcinoma consistent with esophageal primary. He had medical oncology follow-up with Dr. Kulwant Knight on 02/13/2020. He was recommended to undergo placement of Port-A-Cath venous access device and to begin a course of chemotherapy with modified FOLFOX. A [employer] One next generation sequencing study also was requested, but there was insufficient material available to complete the study. A repeat PET/CT on 02/22/2020 showed interval development of 2 malignant lymph nodes, the dominant lesion in the right paratracheal area measuring 2.9 cm with SUV 6.8. The second was a lesion in the right cervical level IV territory measuring 2.6 x 1.6 cm, SUV 4.0. There were no other sites of abnormal FDG uptake on that study. With insufficient tissue sample available for any additional studies, Dr Merida had requested a [employer] One next generation sequencing study by liquid biopsy. 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 There were no actionable mutations reported. Dr Merida saw him for a follow-up visit on 03/27/2020. With his disease apparently localized to the right paratracheal and lower right supraclavicular nodes, he was interested in pursuing local/regional treatment, and he then had radiation oncology consultation with Dr. Fidel Coronado. His further management was complicated by development of COVID-19 virus infection, confirmed on 04/13/2020. Restaging chest CT on 04/30/2020 showed masslike right paratracheal lymphadenopathy measuring 3.8 x 2.7 cm with mild mass-effect on the thoracic trachea. It had increased from 2.7 x 2.5 cm on the February PET/CT. A prominent left hilar lymph node measuring 12 mm appeared unchanged. The fibrotic appearing nodule in the left lower lobe on the January 2020 CT appeared to have resolved. Neck CT showed a large heterogeneous enhancing right supraclavicular lymph node measuring 3.5 x 1.8 cm, increased from 2.6 x 1.9 cm on the February PET/CT. He was able to begin radiation to the involved area in the right neck/upper chest on 05/04/2020. He completed treatment on 06/15/2020 to a total dose of [address] scans of the chest, abdomen, and pelvis on 07/20/2020 showed slight increase in the right paratracheal mass/adenopathy, measuring approximately 4 cm in maximum diameter. There was noted to be increasing tracheal displacement, but that was compared to the January [address] Merida reviewed the scans with the radiologist, and it appeared that the progression was very minimal. As such, Dr Merida had recommended that he be just be followed on close observation. Restaging CT scans on 09/01/2020 showed slight interval improvement in the right supraclavicular lymph node measuring 1.9 x 1.5 x 1.2 cm. There was also slight improvement in right paratracheal lymphadenopathy measuring 2.3 x 2.2 x 3.3 cm. There was no evidence of disease progression. His repeat chest CT on 10/13/2020 showed significant progression in the right paratracheal lymphadenopathy. A soft tissue nodule was noted to be extending into the tracheal lumen. Also noted was development of a new lesion in the right lobe of the liver measuring 2.6 x 3.1 cm. Bronchoscopy on 10/14/2020 showed an exophytic mass originating from the posterior tracheal membrane located about 3.5 to 4 cm below the vocal cords. It was noted to occlude approximately 85 to 90% of the lumen. He was transferred urgently to [facility] for admission, and he subsequently underwent a palliative surgical procedure. Repeat CT scans at [facility] on 11/02/2020 showed residual right paratracheal mass measuring 3.3 x 3.0 cm with decreased luminal extension into the trachea. There was unchanged right supraclavicular lymphadenopathy measuring 1.4 x 1.7 cm. There was redemonstration of hepatic metastasis measuring 3.4 x 2.6 cm, with slight interval increase. He then returned here to begin systemic therapy with modified FOLFOX chemotherapy in combination with Herceptin. His other medical illnesses include hypertension, hypertriglyceridemia, type II diabetes, hypothyroidism, androgen deficiency, obstructive sleep apnea, degenerative arthritis, and glaucoma. He also has history of diverticulitis and a history of recurrent episodes of nephrolithiasis. His other surgeries include cataract excision from the left eye, carpal tunnel release on the left, vasectomy, and extracorporeal shockwave lithotripsy. He underwent right total hip arthroplasty on 07/29/2019. He is a non-smoker, but he had chewed tobacco for 35 years, estimated 2 to 3 cans/day. He does not drink alcohol. INTERIM HISTORY: He began cycle 1 of modified FOLFOX with Herceptin on 11/17/2020. He tolerated it pretty well, though he did experience some fatigue and some neuropathy with it. He continued with cycle 2 of modified FOLFOX with Herceptin on 12/01/2020. In the meantime, he been to [facility] for follow-up with his surgeon at [facility]. He was noted to have some regrowth of the tracheal mass. He then returned and underwent re-resection of the tracheal mass on 12/09/2020. Mr Flores was seen by Dr Merida for followup visit prior to cycle3 FOLFOX/Herceptin. He had no problems with his recent surgery. However he did have more side effects with his second cycle of chemotherapy, in particular the neuropathy, which was significantly worse. He still had cold sensitivity in his mouth and he has persistent tingling in his fingers at the ycle 3 followup visit. He also had further decline in his energy and activity tolerance. His ECOG score was 2. His appetite was not good and he had developed sores on his lip. Dr. Merida opted to hold the oxaliplatin but pursue the Herceptin and 5-FU. Assuming the neuropathy had resolved, he recommended restarting the oxaliplatin at reduced dosage with cycle 4. Mr. Flores is here today for follow-up for consideration of cycle 4 chemotherapy with FOLFOX/Herceptin. He states overall he is feeling better. The neuropathy has resolved. He states he has no new concerns. He states he sleeps propped up due to to surgery. He states this is not new. He is also utilizing lorazepam as needed for sleep. This is working well for him. He denies any fever or chills. He denies any recurrent mouth sores. He states his had no appetite for 2 years because he has no taste. He states he eats because he knows he has to. Thus far he has been able to maintain his weight. It is stable at 228.6 today. He denies any new shortness of breath orthopnea. He has had no further decline of his energy. He states he actually feels a little bit better. He has still limited activity. He denies any new pain. He denies any diarrhea or constipation. He denies any bladder concerns. He did not have any cold sensitivity in his mouth or tingling in his fingers after cycle 3 with elimination of the oxaliplatin. His ECOG remains at 2. Past Medical History: Anemia Degenerative arthritis Diverticulitis Glaucoma of the left eye Hypertension Hypertriglyceridemia Hypogonadism Hypothyroidism Obstructive sleep apnea Renal calculi Type II diabetes Past Surgical History: Cataract excision left eye Left carpal tunnel release Vasectomy EGD and colonoscopy in 2018 Extracorporeal shockwave lithotripsy x 2 in 2011 Allergies: Morphine Sulfate Medications: Bystolic 1 Tablet (of 10 mg) Oral daily Fluconazole 1 Tablet (of 100 mg) Oral daily Gabapentin 1 Capsule (of 300 mg) Oral b.i.d. Glimepiride 1 Tablet (of 4 mg) Oral b.i.d. HumaLOG 200 Units (of 100 Units/mL) Subcutaneous PRN Lantus 40 Units (of 100 Units/mL) Subcutaneous daily Levothyroxine Sodium 1 Tablet (of 175 mcg) Oral daily Nitrofurantoin Macrocrystal 1 Capsule (of 100 mg) Oral daily Pantoprazole Sodium 1 Tablet (of 40 mg) Tablet, enteric coated Oral daily Tamsulosin HCl 1 Cartridge (of 0.4 mg) Capsule Oral b.i.d. Timolol Maleate 1 Drop(s) (of 0.5 %) Solution Ophthalmic daily Family History: Mr. Flores's mother is alive. Mr. Flores's father is alive: heart disease. Mr. Flores has 3 brothers: 3 alive. Father has heart disease and is still living at age 87. Mother still living and in good health at age 82. Two brothers have diabetes, and one also has heart disease. 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 Mr. Flores has never smoked. He has no history of drinking. He has indicated exposure to the following products: chewing tobacco. He is a nonsmoker, he does have a history of chewing tobacco for 35 years, estimated 2-3 cans per day. He does not drink alcohol. Review Of Symptoms: <See Above> Vital Signs: Performed on Dec 29, 2020 10:07 Height - 75.00 in Weight - 228.6 lbs (LOW) BSA - 2.32 sq.m BMI - 28.57 Temperature - 97.3 F (LOW) Pulse - 60 /min Respiration - 18 /min BP - 132/75 mm(hg) O2 Sat - 96 % Pain - 0 Fatigue - 8,1 - No physically strenuous activity, but ambulatory and able to carry out light or sedentary work (e.g. office work, light house work). (ECOG) Physical Examination: Constitutional Alert, oriented, no acute distress. Skin pink, warm and dry. Head Normocephalic; atraumatic. Eyes Conjunctivae and sclerae are clear and without icterus. Pupils are reactive and equal. ENMT No oral exudates, ulcers, masses, thrush or mucositis. Oropharynx clear. Tongue normal. Neck Supple without masses or thyromegaly. No jugular venous distension. Hematologic/Lymphatic No petechiae or purpura. No tender or palpable lymph nodes in the cervical or supraclavicular areas. Respiratory Lungs are clear to auscultation without rhonchi or wheezing. Cardiovascular Regular rate and rhythm of heart without murmurs,clicks, gallops or rubs. Chest Left chest wall venous access device is unremarkable. Abdomen Non-tender, non-distended, no masses or ascites. Good bowel sounds noted in all quads. No guarding or rebound tenderness. No pulsatile masses. Back/Spine Non-tender to palpation. Extremities No visible deformities, no cyanosis, clubbing or edema. Musculoskeletal No tenderness or swelling, normal range of motion without obvious weakness. Integumentary No rashes or lesions. Neurologic No sensory or motor deficits, normal cerebellar function, normal gait. Psychiatric Alert and oriented times three. Coherent speech. Verbalizes understanding of our discussions today. Laboratory:Test performed on Dec 29, 2020 08:40 Sodium 138 mmol/L Potassium 3.9 mmol/L Chloride 102 mmol/L CO2 27 mmol/L Anion Gap 12.9 BUN 8 mg/dL Creatinine 0.6 mg/dL Cr Clearance (Est) 209.5600 mL/min eGFR 140.9 mL/min Glucose 112 mg/dL Osmolality - Calculated 285 mOsm/kg Calcium 8.8 mg/dL Protein, Total 6.4 g/dL Albumin 4.2 g/dL Globulin 2.2 g/dL Bilirubin, Total 0.4 mg/dL ALT (SGPT) 19 U/L AST (SGOT) 23 U/L Alkaline Phosphatase 101 IU/L WBC 4.3 10 3/uL RBC 4.63 10 6/uL HGB 14.4 g/dL HCT 43.3 % MCV 93.5 fL MCH 31.1 pg MCHC 33.3 g/dL RDW 16.3 % Platelet Count 104 10 3/cmm MPV 9.6 fL Neutrophils 2.79 10 3/uL Lymphocytes 0.7 10 3/uL Monocytes 0.7 10 3/uL Eosinophils 0.1 10 3/uL Basophils 0.0 10 3/uL Neutrophil % 64.7 % Lymphocyte % 17.2 % Monocyte % 15.3 % Eosinophil % 2.1 % Basophils % 0.5 % NRBC % 0 % Test performed on Dec 01, 2020 08:14 Magnesium 1.9 mg/dL Impression: 1. Well differentiated infiltrating adenocarcinoma involving the lower third of the esophagus, HER-2/quoc positive. He disease was stage IIIB (ypT3, ypN1, M0) at initial diagnosis in June 2018, but with subsequent progression to stage IV (M1), with involvement in the right paratracheal lymph node confirmed by EBUS/FNA biopsy on 02/05/2020. His next generation sequencing study by liquid biopsy showed no actionable mutations. 2. Hypertension. 3. Hyperlipidemia. 4. Type II diabetes. 5. Obstructive sleep apnea. 6. Degenerative arthritis. 7. He has posttraumatic glaucoma of the left eye. 8. He has a history of recurrent episodes of nephrolithiasis. 9. He has a history of diverticulitis. Plan/Problems Addressed at this Visit: 1. Well differentiated infiltrating adenocarcinoma involving the lower third of the esophagus, HER-2/quoc positive. He disease was stage IIIB (ypT3, ypN1, M0) at initial diagnosis in June 2018. His initial treatment included neoadjuvant chemoradiation utilizing weekly carboplatin/Taxol followed by Mike Rusty esophagectomy on 10/30/2018. He had subsequent progression to stage IV (M1), with involvement in the right paratracheal lymph node confirmed by EBUS/FNA biopsy on 02/05/2020. His staging PET/CT showed uptake in the known involved right paratracheal lymph node and an additional area of uptake in a right cervical level IV territory node measuring 2.6 x 1.6 cm, SUV 4.0. With disease localized to right supraclavicular and right paratracheal lymph nodes, he was interested in pursuing local/regional treatment. His further treatment was complicated by COVID-19 virus infection, from which he had uneventful recovery. His restaging CT scans of the neck and chest on 04/30/2020 did show further progression of the lymphadenopathy, but still with localized involvement. He then began radiation to the right neck/upper chest on 05/04/2020. He completed treatment on 06/15/2020 to a total dose of [address] scans on 09/01/2020 showed no evidence of disease progression. At his follow-up visit on 10/06/2020 he had developed some coughing spells, occasionally with associated hemoptysis. His repeat chest CT on 10/13/2020 showed progression of the right paratracheal mass with apparent extension into the trachea. This was confirmed by bronchoscopy on 10/14/2020, with evidence of exophytic mass originating from the posterior tracheal membrane at the level of about 3.5 to 4 cm below the vocal cords with associated 85 to 90% occlusion of the lumen. Also noted at that time was development of a new metastatic lesion in the liver. He was admitted to [facility] where he underwent a palliative surgical procedure. On 11/18/2019 he began cycle 1 of systemic therapy with modified FOLFOX chemotherapy in combination with Herceptin. He had mild neuropathy lasting 3 days after that treatment. He also had some fatigue, but overall he tolerated it well. He continued with cycle 2 on 12/01/2020. With that treatment he had significantly more toxicity with increased fatigue, more severe neuropathy, and some stomatitis. In the meantime, he had returned to [facility] for re-resection of recurrent tracheal mass. He tolerated the surgery well. Mr. Flores was able to pursue cycle 3 chemotherapy with elimination of the oxaliplatin due to persistent neuropathy on December 15, 2020. He did receive fluorouracil and Herceptin. A. Proceed with cycle 4 FOLFOX. I have opted to resume his oxaliplatin dose at 65 mg per metered squared. If he tolerates this well we may consider increasing his dose to 75 mg per metered squared as his cycle 2 oxaliplatin dosing was 85 mg per metered squared. B. He will continue the current antiemetics as these seem to be working well for him. C. Labs from today were reviewed in detail and discussed with Mr. Flores and a copy was given to him. WBC 4.3, hemoglobin 14.4, platelets 104,000. ANC is 2800. Potassium 3.9 random glucose is 112. His creatinine is 0.6 LFTs are normal. 2. Hypokalemia. It has corrected with oral potassium supplementation. 3. High risk medication monitoring/Herceptin A. His last LVEF was reviewed from his echocardiogram obtained on 11/06/2020 at [facility] cardiovascular division. His LVEF was reported at 65%. There was no aortic regurgitation noted. There was minimal mitral regurgitation but no right externus is no mitral stenosis. He did have sinus bradycardia with rates of 50 bpm. Normal LV and RV size and systolic function. 4. Follow-up plan A. We will plan to have him return in 2 weeks with CBC CMP B. He may have supportive care in interim if the need arises. C. Mr. Flores was instructed to contact us in the interim should questions or problems arise. Signed By: Tri Palmer-, AOLYNDA Merida MD <<Signature on File>>
== END 2021-01-01 23:59 | disposition home or self-care (01) ==
LOC: ONCMED 05:39
PROVIDERS: Nurse Practitioner; PCP Internal Medicine; Visit Provider Internal Medicine Medical Oncology
DX: Z51.11 Encounter for antineoplastic chemotherapy (principal); C15.5 Malignant neoplasm of lower third of esophagus; C77.1 Secondary and unspecified malignant neoplasm of intrathoracic lymph nodes; I10 Essential (primary) hypertension; E78.5 Hyperlipidemia, unspecified; E11.9 Type 2 diabetes mellitus without complications; G47.33 Obstructive sleep apnea (adult) (pediatric); M19.90 Unspecified osteoarthritis, unspecified site; H40.9 Unspecified glaucoma; N20.0 Calculus of kidney; K57.92 Diverticulitis of intestine, part unspecified, without perforation or abscess without bleeding; Z79.899 Other long term (current) drug therapy
CPT/HCPCS: 36415; 36591; 80053; 85025; 96367; 96368; 96375; 96411; 96413; 96415; 96416; 96417; 96523; 99214; 99215; J0640; J1100; J1200; J2469; J7050; J9190; J9263; J9355

== ENCOUNTER 2021-01-28 05:38 | Outpatient (RCR) | payer BC, SELFPAY ==
[2021-01-12 09:08] LABS: Basophils % 0.6 %; Eosinophils # 0.1 10^3/uL (0.0-0.8); Eosinophils % 1.6 %; Hematocrit 42.4 % (42.0-52.0); Hemoglobin 14.2 g/dL (11.7-16.6); Lymphocytes # 0.6 10^3/uL (0.8-4.8); Lymphocytes % 11.1 %; Mean Corpuscular HGB Conc 33.5 g/dL (30.0-36.0); Mean Corpuscular Hemoglobin 31.2 pg (28.0-34.0); Mean Corpuscular Volume 93.2 fL (80-94); Mean Platelet Volume 9.6 fL (7.4-10.4); Monocytes # 0.7 10^3/uL (0.2-0.9); Monocytes % 14.3 %; Neutrophils # 3.63 10^3/uL (1.8-7.7); Nucleated Red Blood Cells % 0 %; Platelet Count 112 10^3/cmm (130-400); Red Blood Count 4.55 10^6/uL (4.1-5.3)
[2021-01-12 09:28] LABS: Alanine Aminotransferase 15 U/L (0-41); Albumin Level 4.1 g/dL (3.5-5.2); Alkaline Phosphatase 103 IU/L (40-130); Anion Gap 13.3 (5-19); Aspartate Amino Transferase 13 U/L (0-40); Blood Urea Nitrogen 7 mg/dL (6-20); Calcium 8.8 mg/dL (8.5-10.5); Carbon Dioxide 26 mmol/L (22-29); Chloride 100 mmol/L (98-107); Globulin 2.2 g/dL (1.3-4.6); Glomerular Filtration Rate 140.9 mL/min (90-130); Glucose 336 mg/dL (65-115); Osmolality Calculated 293 mOsm/kg (285-295); Potassium 3.3 mmol/L (3.5-5.1); Sodium 136 mmol/L (136-145); Total Bilirubin 0.6 mg/dL (0.15-1.2); Total Protein 6.3 g/dL (6.6-8.7)
[2021-01-12] MEDS: sodium chloride 0.9% (100 ml) 100 ML 40 ML (09:45)
[2021-01-12] MEDS: acetaminophen 325 mg Tablet 650 MG PO (09:45)
[2021-01-12] MEDS: diphenhydrAMINE 50 mg/mL SDV 1mL 25 MG IVP (09:49)
[2021-01-12] MEDS: palonosetron 0.25 mg/5 mL SDV IV (09:53)
[2021-01-12] MEDS: dextrose 5% 250 ML 75 ML IV (10:54)
--- NOTE | 2021-01-16 10:44 | ONC FU_ITS ---
Dr. Kearns Patient Follow-Up Note Patient: Ricky Flores Unit #: [id number]: 1965 Dicatated By: Jurgen Kearns M.D.Date of Visit:January 12, 2021 Onc Med Follow-up/Prog Note Chief Complaint: Esophageal cancer. 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 His disease was stage IIIB (ypT3, ypN1, M0) at initial diagnosis in June 2018, but with subsequent progression to stage IV (M1). He had presented with iron deficiency anemia and weight loss. He underwent EGD and colonoscopy on 06/15/2018. The colonoscopy showed 2 small sessile polyps in the mid transverse colon, both of which were removed endoscopically. The EGD showed a circumferential and partially obstructing, large size, malignant appearing mass in the lower third esophagus. The stomach and duodenum appeared unremarkable. Biopsy of the esophageal mass showed well-differentiated infiltrating adenocarcinoma with papillary histologic pattern. On subsequent evaluation, the tumor was confirmed to be MSI stable. It did show overexpression of HER-2/quoc, 3+ by IHC and amplification ratio by FISH of 1.8 with 7.3 HER-2 copies/cell. Staging CT scans of the chest, abdomen, and pelvis on 06/15/2018 showed increased soft tissue thickening suggested at the level of the gastroesophageal junction, estimated at 5 cm in width and 4 cm in depth. There was mild thickening of the wall of the distal esophagus. A superior right paratracheal lymph node measured 1.9 x 2.8 cm. The abdomen showed 2 adjacent perigastric lymph nodes near the greater curvature, located between the stomach and pancreas, measuring 1.7 and 2.2 cm. There was no other intra-abdominal or retroperitoneal adenopathy noted, and there was no evidence of other metastatic disease. Staging PET/CT on 06/23/2018 showed a 3 cm hypermetabolic segment of the distal esophagus with SUV 15.0, consistent with primary malignancy. A 2.2 cm gastrohepatic lymph node had SUV 4.1, consistent with local metastatic disease. There was no evidence for other metastatic involvement. The superior right paratracheal lymph node was noted to be FDG negative, consistent with benign disease. He underwent definitive treatment [facility]. His treatment included neoadjuvant chemoradiation utilizing weekly carboplatin/Taxol followed by [facility] Rusty esophagectomy on 10/30/2018. I do not have the complete pathology report available, but the final staging was IIIB (ypT3, ypN1, M0). He was then followed on observation/expectant management. His surveillance CT scans of the chest, abdomen, and pelvis at [facility] on 01/15/2020 showed interval development of an 8 mm pulmonary nodule in the left major fissure and a 1.1 cm left lower lobe medial basal segment nodule, concerning for metastatic disease. A few other smaller nodules measuring 3 mm or less were also seen in the left lower lobe. There was interval enlargement of the right upper paratracheal lymph node measuring 2 cm. He then underwent EBUS with FNA biopsy of the right paratracheal lymph node on 02/05/2020. Pathology showed metastatic adenocarcinoma consistent with esophageal primary. He had medical oncology follow-up with Dr. Kulwant Knight on 02/13/2020. He was recommended to undergo placement of Port-A-Cath venous access device and to begin a course of chemotherapy with modified FOLFOX. A [employer] next generation sequencing study also was requested, biut there was insufficient material available to complete the study. A repeat PET/CT on 02/22/2020 showed interval development of 2 malignant lymph nodes, the dominant lesion in the right paratracheal area measuring 2.9 cm with SUV 6.8. The second was a lesion in the right cervical level IV territory measuring 2.6 x 1.6 cm, SUV 4.0. There were no other sites of abnormal FDG uptake on that study. With insufficient tissue sample available for any additional studies, I had requested a [employer] next generation sequencing study by liquid biopsy. 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 There were no actionable mutations reported. I had been seeing him for a follow-up visit on 03/27/2020. With his disease apparently localized to the right paratracheal and lower right supraclavicular nodes, he was interested in pursuing local/regional treatment, and he then had radiation oncology consultation with Dr. Fidel Coronado. His further management was complicated by development of COVID-19 virus infection, confirmed on 04/13/2020. Restaging chest CT on 04/30/2020 showed masslike right paratracheal lymphadenopathy measuring 3.8 x 2.7 cm with mild mass-effect on the thoracic trachea. It had increased from 2.7 x 2.5 cm on the February PET/CT. A prominent left hilar lymph node measuring 12 mm appeared unchanged. The fibrotic appearing nodule in the left lower lobe on the January 2020 CT appeared to have resolved. Neck CT showed a large heterogeneous enhancing right supraclavicular lymph node measuring 3.5 x 1.8 cm, increased from 2.6 x 1.9 cm on the February PET/CT. He was able to begin radiation to the involved area in the right neck/upper chest on 05/04/2020. He completed treatment on 06/15/2020 to a total dose of [address] scans of the chest, abdomen, and pelvis on 07/20/2020 showed slight increase in the right paratracheal mass/adenopathy, measuring approximately 4 cm in maximum diameter. There was noted to be increasing tracheal displacement, but that was compared to the January 2020 CT scan. I reviewed the scans with the radiologist, and it appeared that the progression was very minimal. As such, I had recommended that he be just be followed on close observation. Restaging CT scans on 09/01/2020 showed slight interval improvement in the right supraclavicular lymph node measuring 1.9 x 1.5 x 1.2 cm. There was also slight improvement in right paratracheal lymphadenopathy measuring 2.3 x 2.2 x 3.3 cm. There was no evidence of disease progression. His repeat chest CT on 10/13/2020 showed significant progression in the right paratracheal lymphadenopathy. A soft tissue nodule was noted to be extending into the tracheal lumen. Also noted was development of a new lesion in the right lobe of the liver measuring 2.6 x 3.1 cm. Bronchoscopy on 10/14/2020 showed an exophytic mass originating from the posterior tracheal membrane located about 3.5 to 4 cm below the vocal cords. It was noted to occlude approximately 85 to 90% of the lumen. He was transferred urgently to [facility] for admission, and he subsequently underwent a palliative surgical procedure. Repeat CT scans at [facility] on 11/02/2020 showed residual right paratracheal mass measuring 3.3 x 3.0 cm with decreased luminal extension into the trachea. There was unchanged right supraclavicular lymphadenopathy measuring 1.4 x 1.7 cm. There was redemonstration of hepatic metastasis measuring 3.4 x 2.6 cm, with slight interval increase. He then returned here to begin systemic therapy with modified FOLFOX chemotherapy in combination with Herceptin. His other medical illnesses include hypertension, hypertriglyceridemia, type II diabetes, hypothyroidism, androgen deficiency, obstructive sleep apnea, degenerative arthritis, and glaucoma. He also has history of diverticulitis and a history of recurrent episodes of nephrolithiasis. His other surgeries include cataract excision from the left eye, carpal tunnel release on the left, vasectomy, and extracorporeal shockwave lithotripsy. He underwent right total hip arthroplasty on 07/29/2019. He is a non-smoker, but he had chewed tobacco for 35 years, estimated 2 to 3 cans/day. He does not drink alcohol. INTERIM HISTORY: He began cycle 1 of modified FOLFOX with Herceptin on 11/17/2020. He tolerated it pretty well, though he did experience some fatigue and some neuropathy with it. He continued with cycle 2 of modified FOLFOX with Herceptin on 12/01/2020. In the meantime, he been to [facility] for follow-up with his surgeon at [facility]. He was noted to have some regrowth of the tracheal mass. He then returned and underwent re-resection of the tracheal mass on 12/09/2020. He continued with cycle 3 of FOLFOX/Herceptin on 12/15/2020 and with cycle 4 on 12/29/2020. With cycle 3 the oxaliplatin was omitted due to worsening neuropathy symptoms. It was restarted with cycle 4 at a reduced dosage. He is seen for a scheduled visit. He indicates that he has felt really tired and totally drained since his last treatment. His activity has been very limited. ECOG score is 2. He says he has no appetite, but he does eat. He does not have fever or night sweats. His mouth was sore, but that is better now. He does not complain of shortness of breath, cough, or chest pain. He has some nausea and he says his stomach has been rolling a lot. He has been having diarrhea all the time. Bladder function has been okay. He has no significant joint or bone pain. He does not complain of headache or dizziness. He does have some neuropathy in his fingers, but not as bad as it had been previously. Medications: Bystolic 1 Tablet (of 10 mg) Oral daily, Fluconazole 1 Tablet (of 100 mg) Oral daily, Gabapentin 1 Capsule (of 300 mg) Oral b.i.d., Glimepiride 1 Tablet (of 4 mg) Oral b.i.d., HumaLOG 200 Units (of 100 Units/mL) Subcutaneous PRN, Lantus 40 Units (of 100 Units/mL) Subcutaneous daily, Levothyroxine Sodium 1 Tablet (of 175 mcg) Oral daily, Nitrofurantoin Macrocrystal 1 Capsule (of 100 mg) Oral daily, Pantoprazole Sodium 1 Tablet (of 40 mg) Tablet, enteric coated Oral daily, Tamsulosin HCl 1 Cartridge (of 0.4 mg) Capsule Oral b.i.d., Timolol Maleate 1 Drop(s) (of 0.5 %) Solution Ophthalmic daily Allergies: Morphine Sulfate Vital Signs: Performed on January 12, 2021 14:45 Height - 75.00 in Temperature - 97.3 F (LOW) Pulse - 61 /min Respiration - 18 /min BP - 151/79 mm(hg) (HIGH) O2 Sat - 97 % Pain - 0 Performed on January 12, 2021 10:40 Height - 75.00 in Weight - 228 lbs (LOW) BSA - 2.32 sq.m BMI - 28.50 Temperature - 98.0 F (LOW) Pulse - 90 /min Respiration - 18 /min BP - 160/92 mm(hg) (HIGH) O2 Sat - 96 % Pain - 0 Fatigue - 9 Physical Examination: Constitutional - He looks pretty good generally, Eyes - Sclerae nonicteric. Conjunctivae clear, ENMT - No lesions noted in the oral cavity, Hematologic/Lymphatic - No cervical, clavicular, or axillary adenopathy, Respiratory - Lungs are clear with good air movement bilaterally, Cardiovascular - Heart rhythm is regular. There is no murmur, gallop or rub noted, Abdomen - Soft. Liver and spleen are not enlarged. There is no abdominal mass or ascites noted and there is no inguinal adenopathy, Extremities - No edema, Neurologic - No focal neurologic deficits noted. Lab/Imaging: Test performed on January 12, 2021 08:45 Sodium 136 mmol/L Potassium 3.3 mmol/L Chloride 100 mmol/L CO2 26 mmol/L Anion Gap 13.3 BUN 7 mg/dL Creatinine 0.6 mg/dL Cr Clearance (Est) 209.5600 mL/min eGFR 140.9 mL/min Glucose 336 mg/dL Osmolality - Calculated 293 mOsm/kg Calcium 8.8 mg/dL Protein, Total 6.3 g/dL Albumin 4.1 g/dL Globulin 2.2 g/dL Bilirubin, Total 0.6 mg/dL ALT (SGPT) 15 U/L AST (SGOT) 13 U/L Alkaline Phosphatase 103 IU/L WBC 5.0 10 3/uL RBC 4.55 10 6/uL HGB 14.2 g/dL HCT 42.4 % MCV 93.2 fL MCH 31.2 pg MCHC 33.5 g/dL RDW 17.0 % Platelet Count 112 10 3/cmm MPV 9.6 fL Neutrophils 3.63 10 3/uL Lymphocytes 0.6 10 3/uL Monocytes 0.7 10 3/uL Eosinophils 0.1 10 3/uL Basophils 0.0 10 3/uL Neutrophil % 72.0 % Lymphocyte % 11.1 % Monocyte % 14.3 % Eosinophil % 1.6 % Basophils % 0.6 % NRBC % 0 % Problem List: 1. Well differentiated infiltrating adenocarcinoma involving the lower third of the esophagus, HER-2/quoc positive. He disease was stage IIIB (ypT3, ypN1, M0) at initial diagnosis in June 2018, but with subsequent progression to stage IV (M1), with involvement in the right paratracheal lymph node confirmed by EBUS/FNA biopsy on 02/05/2020. His next generation sequencing study by liquid biopsy showed no actionable mutations. 2. Hypertension. 3. Hyperlipidemia. 4. Type II diabetes. 5. Obstructive sleep apnea. 6. Degenerative arthritis. 7. He has posttraumatic glaucoma of the left eye. 8. He has a history of recurrent episodes of nephrolithiasis. 9. He has a history of diverticulitis. Problems Addressed with this Encounter and Plan: 1. Patient with well differentiated infiltrating adenocarcinoma involving the lower third of the esophagus, HER-2/quoc positive. He disease was stage IIIB (ypT3, ypN1, M0) at initial diagnosis in June 2018. His initial treatment included neoadjuvant chemoradiation utilizing weekly carboplatin/Taxol followed by [facility] Rusty esophagectomy on 10/30/2018. He had subsequent progression to stage IV (M1), with involvement in the right paratracheal lymph node confirmed by EBUS/FNA biopsy on 02/05/2020. His staging PET/CT showed uptake in the known involved right paratracheal lymph node and an additional area of uptake in a right cervical level IV territory node measuring 2.6 x 1.6 cm, SUV 4.0. With disease localized to right supraclavicular and right paratracheal lymph nodes, he was interested in pursuing local/regional treatment. His further treatment was complicated by COVID-19 virus infection, from which he had uneventful recovery. His restaging CT scans of the neck and chest on 04/30/2020 did show further progression of the lymphadenopathy, but still with localized involvement. He then began radiation to the right neck/upper chest on 05/04/2020. He completed treatment on 06/15/2020 to a total dose of [address] scans on 09/01/2020 showed no evidence of disease progression. At his follow-up visit on 10/06/2020 he had developed some coughing spells, occasionally with associated hemoptysis. His repeat chest CT on 10/13/2020 showed progression of the right paratracheal mass with apparent extension into the trachea. This was confirmed by bronchoscopy on 10/14/2020, with evidence of exophytic mass originating from the posterior tracheal membrane at the level of about 3.5 to 4 cm below the vocal cords with associated 85 to 90% occlusion of the lumen. Also noted at that time was development of a new metastatic lesion in the liver. He was admitted to [facility] where he underwent a palliative surgical procedure. On 11/18/2019 he began cycle 1 of systemic therapy with modified FOLFOX chemotherapy in combination with Herceptin. He had mild neuropathy lasting 3 days after that treatment. He also had some fatigue, but overall he tolerated it well. He continued with cycle 2 on 12/01/2020. With that treatment he had significantly more toxicity with increased fatigue, more severe neuropathy, and some stomatitis. In the meantime, he had returned to [facility] for re-resection of recurrent tracheal mass. He tolerated the surgery well. He continue with his third cycle of chemotherapy on 12/15/2020, but with omission of the oxaliplatin due to increased neuropathy. The oxaliplatin was restarted at a reduced dosage with cycle 4 on 12/29/2020. At this point he is still having mild neuropathy, but he is more significantly fatigued. He also is having more GI symptoms including nausea/anorexia and diarrhea. He will proceed now with his 5tj cycle of chemotherapy. It will be administered with another dose reduction in the oxaliplatin and with a reduction in the 5-FU dosage. In addition, the 5-FU bolus will be omitted. I will have him start Marinol 5 mg twice daily for nausea/anorexia, subject to verification of insurance coverage. He returns in 2 weeks. He is scheduled to undergo restaging evaluation at [facility] in the early part of February. 2. Hypokalemia. He continues his oral potassium supplementation. Signed By: Jurgen Kearns M.D. <<Signature on File>>
[2021-01-25 13:26] LABS: Basophils % 0.7 %; Eosinophils # 0.1 10^3/uL (0.0-0.8); Eosinophils % 1.3 %; Hematocrit 41.6 % (42.0-52.0); Hemoglobin 14.2 g/dL (11.7-16.6); Lymphocytes # 0.7 10^3/uL (0.8-4.8); Lymphocytes % 14.8 %; Mean Corpuscular HGB Conc 34.1 g/dL (30.0-36.0); Mean Corpuscular Hemoglobin 31.9 pg (28.0-34.0); Mean Corpuscular Volume 93.5 fL (80-94); Mean Platelet Volume 9.9 fL (7.4-10.4); Monocytes # 0.5 10^3/uL (0.2-0.9); Monocytes % 11.3 %; Neutrophils % 71.5 %; Nucleated Red Blood Cells % 0 %; Platelet Count 122 10^3/cmm (130-400); Red Blood Count 4.45 10^6/uL (4.1-5.3); Red Cell Distribution Width 17.2 % (12.1-15.1); White Blood Count 4.6 10^3/uL (4.0-10.0)
[2021-01-25 13:51] LABS: Alanine Aminotransferase 18 U/L (0-41); Albumin Level 4.1 g/dL (3.5-5.2); Alkaline Phosphatase 96 IU/L (40-130); Anion Gap 13.7 (5-19); Aspartate Amino Transferase 19 U/L (0-40); Blood Urea Nitrogen 6 mg/dL (6-20); Calcium 8.7 mg/dL (8.5-10.5); Carbon Dioxide 29 mmol/L (22-29); Chloride 100 mmol/L (98-107); Globulin 1.9 g/dL (1.3-4.6); Glucose 215 mg/dL (65-115); Osmolality Calculated 292 mOsm/kg (285-295); Potassium 3.7 mmol/L (3.5-5.1); Sodium 139 mmol/L (136-145); Total Bilirubin 0.4 mg/dL (0.15-1.2)
--- NOTE | 2021-01-26 09:09 | ONC FU_ITS ---
Dr. Kearns Patient Follow-Up Note Patient: Ricky Flores Unit #: [id number]: [id number] Dicatated By: Jurgen Kearns M.D.Date of Visit:January 26, 2021 Onc Med Follow-up/Prog Note Chief Complaint: Esophageal cancer. 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 His disease was stage IIIB (ypT3, ypN1, M0) at initial diagnosis in June 2018, but with subsequent progression to stage IV (M1). He had presented with iron deficiency anemia and weight loss. He underwent EGD and colonoscopy on 06/15/2018. The colonoscopy showed 2 small sessile polyps in the mid transverse colon, both of which were removed endoscopically. The EGD showed a circumferential and partially obstructing, large size, malignant appearing mass in the lower third esophagus. The stomach and duodenum appeared unremarkable. Biopsy of the esophageal mass showed well-differentiated infiltrating adenocarcinoma with papillary histologic pattern. On subsequent evaluation, the tumor was confirmed to be MSI stable. It did show overexpression of HER-2/quoc, 3+ by IHC and amplification ratio by FISH of 1.8 with 7.3 HER-2 copies/cell. Staging CT scans of the chest, abdomen, and pelvis on 06/15/2018 showed increased soft tissue thickening suggested at the level of the gastroesophageal junction, estimated at 5 cm in width and 4 cm in depth. There was mild thickening of the wall of the distal esophagus. A superior right paratracheal lymph node measured 1.9 x 2.8 cm. The abdomen showed 2 adjacent perigastric lymph nodes near the greater curvature, located between the stomach and pancreas, measuring 1.7 and 2.2 cm. There was no other intra-abdominal or retroperitoneal adenopathy noted, and there was no evidence of other metastatic disease. Staging PET/CT on 06/23/2018 showed a 3 cm hypermetabolic segment of the distal esophagus with SUV 15.0, consistent with primary malignancy. A 2.2 cm gastrohepatic lymph node had SUV 4.1, consistent with local metastatic disease. There was no evidence for other metastatic involvement. The superior right paratracheal lymph node was noted to be FDG negative, consistent with benign disease. He underwent definitive [facility]. His treatment included neoadjuvant chemoradiation utilizing weekly carboplatin/Taxol followed by [place] [facility] esophagectomy on 10/30/2018. I do not have the complete pathology report available, but the final staging was IIIB (ypT3, ypN1, M0). He was then followed on observation/expectant management. His surveillance CT scans of the chest, abdomen, and pelvis at [facility] on 01/15/2020 showed interval development of an 8 mm pulmonary nodule in the left major fissure and a 1.1 cm left lower lobe medial basal segment nodule, concerning for metastatic disease. A few other smaller nodules measuring 3 mm or less were also seen in the left lower lobe. There was interval enlargement of the right upper paratracheal lymph node measuring 2 cm. He then underwent EBUS with FNA biopsy of the right paratracheal lymph node on 02/05/2020. Pathology showed metastatic adenocarcinoma consistent with esophageal primary. He had medical oncology follow-up with Dr. Kulwant Knight on 02/13/2020. He was recommended to undergo placement of Port-A-Cath venous access device and to begin a course of chemotherapy with modified FOLFOX. A [employer] next generation sequencing study also was requested, biut there was insufficient material available to complete the study. A repeat PET/CT on 02/22/2020 showed interval development of 2 malignant lymph nodes, the dominant lesion in the right paratracheal area measuring 2.9 cm with SUV 6.8. The second was a lesion in the right cervical level IV territory measuring 2.6 x 1.6 cm, SUV 4.0. There were no other sites of abnormal FDG uptake on that study. With insufficient tissue sample available for any additional studies, I had requested a [employer] next generation sequencing study by liquid biopsy. 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 There were no actionable mutations reported. I had been seeing him for a follow-up visit on 03/27/2020. With his disease apparently localized to the right paratracheal and lower right supraclavicular nodes, he was interested in pursuing local/regional treatment, and he then had radiation oncology consultation with Dr. Fidel Coronado. His further management was complicated by development of COVID-19 virus infection, confirmed on 04/13/2020. Restaging chest CT on 04/30/2020 showed masslike right paratracheal lymphadenopathy measuring 3.8 x 2.7 cm with mild mass-effect on the thoracic trachea. It had increased from 2.7 x 2.5 cm on the February PET/CT. A prominent left hilar lymph node measuring 12 mm appeared unchanged. The fibrotic appearing nodule in the left lower lobe on the January 2020 CT appeared to have resolved. Neck CT showed a large heterogeneous enhancing right supraclavicular lymph node measuring 3.5 x 1.8 cm, increased from 2.6 x 1.9 cm on the February PET/CT. He was able to begin radiation to the involved area in the right neck/upper chest on 05/04/2020. He completed treatment on 06/15/2020 to a total dose of [address] scans of the chest, abdomen, and pelvis on 07/20/2020 showed slight increase in the right paratracheal mass/adenopathy, measuring approximately 4 cm in maximum diameter. There was noted to be increasing tracheal displacement, but that was compared to the January 2020 CT scan. I reviewed the scans with the radiologist, and it appeared that the progression was very minimal. As such, I had recommended that he be just be followed on close observation. Restaging CT scans on 09/01/2020 showed slight interval improvement in the right supraclavicular lymph node measuring 1.9 x 1.5 x 1.2 cm. There was also slight improvement in right paratracheal lymphadenopathy measuring 2.3 x 2.2 x 3.3 cm. There was no evidence of disease progression. His repeat chest CT on 10/13/2020 showed significant progression in the right paratracheal lymphadenopathy. A soft tissue nodule was noted to be extending into the tracheal lumen. Also noted was development of a new lesion in the right lobe of the liver measuring 2.6 x 3.1 cm. Bronchoscopy on 10/14/2020 showed an exophytic mass originating from the posterior tracheal membrane located about 3.5 to 4 cm below the vocal cords. It was noted to occlude approximately 85 to 90% of the lumen. He was transferred urgently to [facility] for admission, and he subsequently underwent a palliative surgical procedure. Repeat CT scans at [facility] on 11/02/2020 showed residual right paratracheal mass measuring 3.3 x 3.0 cm with decreased luminal extension into the trachea. There was unchanged right supraclavicular lymphadenopathy measuring 1.4 x 1.7 cm. There was redemonstration of hepatic metastasis measuring 3.4 x 2.6 cm, with slight interval increase. He then returned here to begin systemic therapy with modified FOLFOX chemotherapy in combination with Herceptin. His other medical illnesses include hypertension, hypertriglyceridemia, type II diabetes, hypothyroidism, androgen deficiency, obstructive sleep apnea, degenerative arthritis, and glaucoma. He also has history of diverticulitis and a history of recurrent episodes of nephrolithiasis. His other surgeries include cataract excision from the left eye, carpal tunnel release on the left, vasectomy, and extracorporeal shockwave lithotripsy. He underwent right total hip arthroplasty on 07/29/2019. He is a non-smoker, but he had chewed tobacco for 35 years, estimated 2 to 3 cans/day. He does not drink alcohol. INTERIM HISTORY: He began cycle 1 of modified FOLFOX with Herceptin on 11/17/2020. He tolerated it pretty well, though he did experience some fatigue and some neuropathy with it. He continued with cycle 2 of modified FOLFOX with Herceptin on 12/01/2020. In the meantime, he been to [facility] for follow-up with his surgeon at [facility]. He was noted to have some regrowth of the tracheal mass. He then returned and underwent re-resection of the tracheal mass on 12/09/2020. He continued with cycle 3 of FOLFOX/Herceptin on 12/15/2020 and with cycle 4 on 12/29/2020. With cycle 3 the oxaliplatin was omitted due to worsening neuropathy symptoms. It was restarted with cycle 4 at a reduced dosage. His cycle 5 on 01/12/2021 was administered with further dose reduction in the oxaliplatin and with a dose reduction in the 5-FU infusion. He is seen for a scheduled visit. He continues to complain of severe fatigue. His activity is limited to 2 or 3 hours/day. ECOG score is 2. He still has poor appetite, and he had no apparent benefit taking dronabinol. He has not had fever or night sweats. He has had improvement in his neuropathy, which lasted only for 2 to 3 days in the mouth and hands. He has a little residual neuropathy in his feet. He has had no mouth sores. He has no shortness of breath, cough, or chest pain. He has just a little nausea. He has no other GI or complaints. He has no significant joint or bone pain. He does not complain of headache or dizziness. He still has some depression. Medications: Bystolic 1 Tablet (of 10 mg) Oral daily, Fluconazole 1 Tablet (of 100 mg) Oral daily, Gabapentin 1 Capsule (of 300 mg) Oral b.i.d., Glimepiride 1 Tablet (of 4 mg) Oral b.i.d., HumaLOG 200 Units (of 100 Units/mL) Subcutaneous PRN, Lantus 40 Units (of 100 Units/mL) Subcutaneous daily, Levothyroxine Sodium 1 Tablet (of 175 mcg) Oral daily, Nitrofurantoin Macrocrystal 1 Capsule (of 100 mg) Oral daily, Pantoprazole Sodium 1 Tablet (of 40 mg) Tablet, enteric coated Oral daily, Tamsulosin HCl 1 Cartridge (of 0.4 mg) Capsule Oral b.i.d., Timolol Maleate 1 Drop(s) (of 0.5 %) Solution Ophthalmic daily Allergies: Morphine Sulfate Vital Signs: Performed on January 26, 2021 08:37 Height - 75.00 in Weight - 227.2 lbs (LOW) BSA - 2.32 sq.m BMI - 28.40 Temperature - 97.3 F (LOW) Pulse - 87 /min Respiration - 18 /min BP - 149/82 mm(hg) (HIGH) O2 Sat - 97 % Pain - 0 Fatigue - 8 Physical Examination: Constitutional - He appears somewhat weak generally, Eyes - Sclerae nonicteric. Conjunctivae clear, ENMT - No lesions noted in the oral cavity, Hematologic/Lymphatic - No cervical, clavicular, or axillary adenopathy, Respiratory - Lungs are clear with good air movement bilaterally, Cardiovascular - Heart rhythm is regular. There is no murmur, gallop or rub noted, Abdomen - Soft. Liver and spleen are not enlarged. There is no abdominal mass or ascites noted and there is no inguinal adenopathy, Extremities - No edema, Neurologic - No focal neurologic deficits noted. Lab/Imaging: Test performed on January 12, 2021 08:45 Sodium 136 mmol/L Potassium 3.3 mmol/L Chloride 100 mmol/L CO2 26 mmol/L Anion Gap 13.3 BUN 7 mg/dL Creatinine 0.6 mg/dL Cr Clearance (Est) 209.5600 mL/min eGFR 140.9 mL/min Glucose 336 mg/dL Osmolality - Calculated 293 mOsm/kg Calcium 8.8 mg/dL Protein, Total 6.3 g/dL Albumin 4.1 g/dL Globulin 2.2 g/dL Bilirubin, Total 0.6 mg/dL ALT (SGPT) 15 U/L AST (SGOT) 13 U/L Alkaline Phosphatase 103 IU/L WBC 5.0 10 3/uL RBC 4.55 10 6/uL HGB 14.2 g/dL HCT 42.4 % MCV 93.2 fL MCH 31.2 pg MCHC 33.5 g/dL RDW 17.0 % Platelet Count 112 10 3/cmm MPV 9.6 fL Neutrophils 3.63 10 3/uL Lymphocytes 0.6 10 3/uL Monocytes 0.7 10 3/uL Eosinophils 0.1 10 3/uL Basophils 0.0 10 3/uL Neutrophil % 72.0 % Lymphocyte % 11.1 % Monocyte % 14.3 % Eosinophil % 1.6 % Basophils % 0.6 % NRBC % 0 % Problem List: 1. Well differentiated infiltrating adenocarcinoma involving the lower third of the esophagus, HER-2/quoc positive. He disease was stage IIIB (ypT3, ypN1, M0) at initial diagnosis in June 2018, but with subsequent progression to stage IV (M1), with involvement in the right paratracheal lymph node confirmed by EBUS/FNA biopsy on 02/05/2020. His next generation sequencing study by liquid biopsy showed no actionable mutations. 2. Hypertension. 3. Hyperlipidemia. 4. Type II diabetes. 5. Obstructive sleep apnea. 6. Degenerative arthritis. 7. He has posttraumatic glaucoma of the left eye. 8. He has a history of recurrent episodes of nephrolithiasis. 9. He has a history of diverticulitis. Problems Addressed with this Encounter and Plan: 1. Patient with well differentiated infiltrating adenocarcinoma involving the lower third of the esophagus, HER-2/quoc positive. He disease was stage IIIB (ypT3, ypN1, M0) at initial diagnosis in June 2018. His initial treatment included neoadjuvant chemoradiation utilizing weekly carboplatin/Taxol followed by [place] [facility] esophagectomy on 10/30/2018. He had subsequent progression to stage IV (M1), with involvement in the right paratracheal lymph node confirmed by EBUS/FNA biopsy on 02/05/2020. His staging PET/CT showed uptake in the known involved right paratracheal lymph node and an additional area of uptake in a right cervical level IV territory node measuring 2.6 x 1.6 cm, SUV 4.0. With disease localized to right supraclavicular and right paratracheal lymph nodes, he was interested in pursuing local/regional treatment. His further treatment was complicated by COVID-19 virus infection, from which he had uneventful recovery. His restaging CT scans of the neck and chest on 04/30/2020 did show further progression of the lymphadenopathy, but still with localized involvement. He then began radiation to the right neck/upper chest on 05/04/2020. He completed treatment on 06/15/2020 to a total dose of [address] scans on 09/01/2020 showed no evidence of disease progression. At his follow-up visit on 10/06/2020 he had developed some coughing spells, occasionally with associated hemoptysis. His repeat chest CT on 10/13/2020 showed progression of the right paratracheal mass with apparent extension into the trachea. This was confirmed by bronchoscopy on 10/14/2020, with evidence of exophytic mass originating from the posterior tracheal membrane at the level of about 3.5 to 4 cm below the vocal cords with associated 85 to 90% occlusion of the lumen. Also noted at that time was development of a new metastatic lesion in the liver. He was admitted to [facility] where he underwent a palliative surgical procedure. On 11/18/2019 he began cycle 1 of systemic therapy with modified FOLFOX chemotherapy in combination with Herceptin. He had mild neuropathy lasting 3 days after that treatment. He also had some fatigue, but overall he tolerated it well. He continued with cycle 2 on 12/01/2020. With that treatment he had significantly more toxicity with increased fatigue, more severe neuropathy, and some stomatitis. In the meantime, he had returned to [facility] for re-resection of recurrent tracheal mass. He tolerated the surgery well. He continue with his third cycle of chemotherapy on 12/15/2020, but with omission of the oxaliplatin due to increased neuropathy. The oxaliplatin was restarted at a reduced dosage with cycle 4 on 12/29/2020. His cycle 5 on 01/12/2021 was administered with a further reduction in the oxaliplatin dosage, with omission of the 5-FU bolus, and with a dose reduction in the 5-FU infusion. With those changes, he is having just mild neuropathy, but he continues to have severe fatigue. He will proceed now with his 6th cycle of chemotherapy. It will be administered at the same dosages. I will have him try increasing dronabinol to 10 mg twice daily. He is scheduled to undergo restaging evaluation at [facility] next week. He will return here for treatment in 2 weeks. Due to his worsening fatigue, I will limit that treatment to Herceptin only. I will plan to see him again in 4 weeks. At that point I likely will change his treatment regimen, depending on the outcome of his restaging evaluation. Based on recent reports, one option may be to incorporate immunotherapy. 2. Hypokalemia. It is being managed adequately with and oral potassium supplementation. Signed By: Jurgen Kearns M.D. <<Signature on File>>
[2021-01-26] MEDS: sodium chloride 0.9% 250 ML IV (09:20)
[2021-01-26] MEDS: acetaminophen 325 mg Tablet 650 MG PO (09:20)
[2021-01-26] MEDS: palonosetron 0.25 mg/5 mL SDV IVP (09:25)
[2021-01-26] MEDS: diphenhydrAMINE 50 mg/mL SDV 1mL 25 MG IVP (09:25)
[2021-01-26] MEDS: dextrose 5% 250 ML IV (10:34)
== END 2021-02-01 23:59 | disposition home or self-care (01) ==
LOC: ONCMED 05:38
PROVIDERS: PCP Internal Medicine; Visit Provider Internal Medicine Medical Oncology
DX: Z51.11 Encounter for antineoplastic chemotherapy (principal); C15.5 Malignant neoplasm of lower third of esophagus; C77.1 Secondary and unspecified malignant neoplasm of intrathoracic lymph nodes; I10 Essential (primary) hypertension; E78.5 Hyperlipidemia, unspecified; E11.9 Type 2 diabetes mellitus without complications; G47.33 Obstructive sleep apnea (adult) (pediatric); M19.90 Unspecified osteoarthritis, unspecified site; H40.89 Other specified glaucoma; N20.0 Calculus of kidney; K57.92 Diverticulitis of intestine, part unspecified, without perforation or abscess without bleeding; Z79.899 Other long term (current) drug therapy
CPT/HCPCS: 36591; 80053; 85025; 96367; 96368; 96375; 96411; 96413; 96415; 96417; 96523; 99214; 99215; J0640; J1100; J1200; J2469; J7050; J9190; J9263; J9355

== ENCOUNTER 2021-03-03 05:50 | Outpatient (RCR) | payer OTHER, BC, SELFPAY ==
[2021-02-08] MEDS: sodium chloride 0.9% 250 ML 75 ML IV (10:18)
[2021-02-08] MEDS: diphenhydrAMINE 50 mg/mL SDV 1mL 25 MG IV (10:18)
[2021-02-08] MEDS: acetaminophen 325 mg Tablet 650 MG PO (10:20)
[2021-03-01 09:05] LABS: Basophils % 0.5 %; Eosinophils # 0.1 10^3/uL (0.0-0.8); Eosinophils % 2.4 %; Hematocrit 42.2 % (42.0-52.0); Hemoglobin 14.2 g/dL (11.7-16.6); Lymphocytes # 0.8 10^3/uL (0.8-4.8); Lymphocytes % 13.3 %; Mean Corpuscular HGB Conc 33.6 g/dL (30.0-36.0); Mean Corpuscular Hemoglobin 32.3 pg (28.0-34.0); Mean Corpuscular Volume 95.9 fL (80-94); Mean Platelet Volume 9.9 fL (7.4-10.4); Monocytes # 0.7 10^3/uL (0.2-0.9); Monocytes % 11.8 %; Neutrophils # 4.25 10^3/uL (1.8-7.7); Neutrophils % 71.5 %; Nucleated Red Blood Cells % 0 %; Platelet Count 161 10^3/cmm (130-400); Red Cell Distribution Width 15.8 % (12.1-15.1); White Blood Count 5.9 10^3/uL (4.0-10.0)
[2021-03-01 09:34] LABS: Alanine Aminotransferase 14 U/L (0-41); Albumin Level 3.8 g/dL (3.5-5.2); Alkaline Phosphatase 98 IU/L (40-130); Anion Gap 11.1 (5-19); Aspartate Amino Transferase 16 U/L (0-40); Blood Urea Nitrogen 6 mg/dL (6-20); Calcium 8.1 mg/dL (8.5-10.5); Carbon Dioxide 30 mmol/L (22-29); Chloride 104 mmol/L (98-107); Glucose 101 mg/dL (65-115); Osmolality Calculated 292 mOsm/kg (285-295); Potassium 3.1 mmol/L (3.5-5.1); Sodium 142 mmol/L (136-145); Total Bilirubin 0.4 mg/dL (0.15-1.2); Total Protein 5.8 g/dL (6.6-8.7)
[2021-03-01] MEDS: sodium chloride 0.9% 250 ML 75 ML IV (10:42)
[2021-03-01] MEDS: ondansetron 2 mg/ML SDV 2 mL 8 MG IVP (10:42)
[2021-03-01] MEDS: acetaminophen 325 mg Tablet 650 MG PO (10:42)
[2021-03-01] MEDS: diphenhydrAMINE 50 mg/mL SDV 1mL 25 MG IV (10:44)
[2021-03-01] MEDS: LORazepam 2 mg/mL INJ 1 mL 0.5 MG IV (11:57)
--- NOTE | 2021-03-05 07:52 | ONC FU_ITS ---
Dr. Kearns Patient Follow-Up Note Patient: Ricky Flores Unit #: [id number]: [id number] Dicatated By: Jurgen Kearns M.D.Date of Visit:Mar 01, 2021 Onc Med Follow-up/Prog Note Chief Complaint: Esophageal cancer. 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 His disease was stage IIIB (ypT3, ypN1, M0) at initial diagnosis in June 2018, but with subsequent progression to stage IV (M1). He had presented with iron deficiency anemia and weight loss. He underwent EGD and colonoscopy on 06/15/2018. The colonoscopy showed 2 small sessile polyps in the mid transverse colon, both of which were removed endoscopically. The EGD showed a circumferential and partially obstructing, large size, malignant appearing mass in the lower third esophagus. The stomach and duodenum appeared unremarkable. Biopsy of the esophageal mass showed well-differentiated infiltrating adenocarcinoma with papillary histologic pattern. On subsequent evaluation, the tumor was confirmed to be MSI stable. It did show overexpression of HER-2/quoc, 3+ by IHC and amplification ratio by FISH of 1.8 with 7.3 HER-2 copies/cell. Staging CT scans of the chest, abdomen, and pelvis on 06/15/2018 showed increased soft tissue thickening suggested at the level of the gastroesophageal junction, estimated at 5 cm in width and 4 cm in depth. There was mild thickening of the wall of the distal esophagus. A superior right paratracheal lymph node measured 1.9 x 2.8 cm. The abdomen showed 2 adjacent perigastric lymph nodes near the greater curvature, located between the stomach and pancreas, measuring 1.7 and 2.2 cm. There was no other intra-abdominal or retroperitoneal adenopathy noted, and there was no evidence of other metastatic disease. Staging PET/CT on 06/23/2018 showed a 3 cm hypermetabolic segment of the distal esophagus with SUV 15.0, consistent with primary malignancy. A 2.2 cm gastrohepatic lymph node had SUV 4.1, consistent with local metastatic disease. There was no evidence for other metastatic involvement. The superior right paratracheal lymph node was noted to be FDG negative, consistent with benign disease. He underwent definitive treatment through the [facility]. His treatment included neoadjuvant chemoradiation utilizing weekly carboplatin/Taxol followed by [facility] Rusty esophagectomy on 10/30/2018. I do not have the complete pathology report available, but the final staging was IIIB (ypT3, ypN1, M0). He was then followed on observation/expectant management. His surveillance CT scans of the chest, abdomen, and pelvis at [facility] on 01/15/2020 showed interval development of an 8 mm pulmonary nodule in the left major fissure and a 1.1 cm left lower lobe medial basal segment nodule, concerning for metastatic disease. A few other smaller nodules measuring 3 mm or less were also seen in the left lower lobe. There was interval enlargement of the right upper paratracheal lymph node measuring 2 cm. He then underwent EBUS with FNA biopsy of the right paratracheal lymph node on 02/05/2020. Pathology showed metastatic adenocarcinoma consistent with esophageal primary. He had medical oncology follow-up with Dr. Kulwant Knight on 02/13/2020. He was recommended to undergo placement of Port-A-Cath venous access device and to begin a course of chemotherapy with modified FOLFOX. A [facility] next generation sequencing study also was requested, biut there was insufficient material available to complete the study. A repeat PET/CT on 02/22/2020 showed interval development of 2 malignant lymph nodes, the dominant lesion in the right paratracheal area measuring 2.9 cm with SUV 6.8. The second was a lesion in the right cervical level IV territory measuring 2.6 x 1.6 cm, SUV 4.0. There were no other sites of abnormal FDG uptake on that study. With insufficient tissue sample available for any additional studies, I had requested a [facility] next generation sequencing study by liquid biopsy. 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 There were no actionable mutations reported. I had been seeing him for a follow-up visit on 03/27/2020. With his disease apparently localized to the right paratracheal and lower right supraclavicular nodes, he was interested in pursuing local/regional treatment, and he then had radiation oncology consultation with Dr. Fidel Coronado. His further management was complicated by development of COVID-19 virus infection, confirmed on 04/13/2020. Restaging chest CT on 04/30/2020 showed masslike right paratracheal lymphadenopathy measuring 3.8 x 2.7 cm with mild mass-effect on the thoracic trachea. It had increased from 2.7 x 2.5 cm on the February PET/CT. A prominent left hilar lymph node measuring 12 mm appeared unchanged. The fibrotic appearing nodule in the left lower lobe on the January 2020 CT appeared to have resolved. Neck CT showed a large heterogeneous enhancing right supraclavicular lymph node measuring 3.5 x 1.8 cm, increased from 2.6 x 1.9 cm on the February PET/CT. He was able to begin radiation to the involved area in the right neck/upper chest on 05/04/2020. He completed treatment on 06/15/2020 to a total dose of [address] scans of the chest, abdomen, and pelvis on 07/20/2020 showed slight increase in the right paratracheal mass/adenopathy, measuring approximately 4 cm in maximum diameter. There was noted to be increasing tracheal displacement, but that was compared to the January 2020 CT scan. I reviewed the scans with the radiologist, and it appeared that the progression was very minimal. As such, I had recommended that he be just be followed on close observation. Restaging CT scans on 09/01/2020 showed slight interval improvement in the right supraclavicular lymph node measuring 1.9 x 1.5 x 1.2 cm. There was also slight improvement in right paratracheal lymphadenopathy measuring 2.3 x 2.2 x 3.3 cm. There was no evidence of disease progression. His repeat chest CT on 10/13/2020 showed significant progression in the right paratracheal lymphadenopathy. A soft tissue nodule was noted to be extending into the tracheal lumen. Also noted was development of a new lesion in the right lobe of the liver measuring 2.6 x 3.1 cm. Bronchoscopy on 10/14/2020 showed an exophytic mass originating from the posterior tracheal membrane located about 3.5 to 4 cm below the vocal cords. It was noted to occlude approximately 85 to 90% of the lumen. He was transferred urgently to [facility] for admission, and he subsequently underwent a palliative surgical procedure. Repeat CT scans at [facility] on 11/02/2020 showed residual right paratracheal mass measuring 3.3 x 3.0 cm with decreased luminal extension into the trachea. There was unchanged right supraclavicular lymphadenopathy measuring 1.4 x 1.7 cm. There was redemonstration of hepatic metastasis measuring 3.4 x 2.6 cm, with slight interval increase. He then returned here to begin systemic therapy with modified FOLFOX chemotherapy in combination with Herceptin. His other medical illnesses include hypertension, hypertriglyceridemia, type II diabetes, hypothyroidism, androgen deficiency, obstructive sleep apnea, degenerative arthritis, and glaucoma. He also has history of diverticulitis and a history of recurrent episodes of nephrolithiasis. His other surgeries include cataract excision from the left eye, carpal tunnel release on the left, vasectomy, and extracorporeal shockwave lithotripsy. He underwent right total hip arthroplasty on 07/29/2019. He is a non-smoker, but he had chewed tobacco for 35 years, estimated 2 to 3 cans/day. He does not drink alcohol. INTERIM HISTORY: He began cycle 1 of modified FOLFOX with Herceptin on 11/17/2020. He tolerated it pretty well, though he did experience some fatigue and some neuropathy with it. He continued with cycle 2 of modified FOLFOX with Herceptin on 12/01/2020. In the meantime, he been to [facility] for follow-up with his surgeon at [facility]. He was noted to have some regrowth of the tracheal mass. He then returned and underwent re-resection of the tracheal mass on 12/09/2020. He continued with cycle 3 of FOLFOX/Herceptin on 12/15/2020 and with cycle 4 on 12/29/2020. With cycle 3 the oxaliplatin was omitted due to worsening neuropathy symptoms. It was restarted with cycle 4 at a reduced dosage. His cycle 5 on 01/12/2021 was administered with a further dose reduction in the oxaliplatin and with a dose reduction in the 5-FU infusion. He had a follow-up visit at [facility] on 02/02/2021. His restaging CT scans show changes of bronchoscopic tumor debulking with a residual partially necrotic lesion involving the right aspect of the trachea and extending posteriorly. There was stable right supraclavicular lymphadenopathy and there was resolution of the previously noted hepatic segment 7 metastatic lesion. Overall, there was some evidence of response and no evidence of disease progression. With those findings, he was recommended to continue chemotherapy with infusional 5-FU together with Herceptin at a 3-week dosing interval. Due to a previously planned family vacation, his schedule treatment on 02/08/2021 was limited to just Herceptin. He is seen for a scheduled visit. He is feeling much better generally. In addition to the changes in his chemotherapy regimen, he has started using medical marijuana. Since then he has been sleeping much better and he has better energy during the daytime. His ECOG score is 1. His appetite also is better. He has no fever or night sweats. He has not had sore mouth or throat. He has no shortness of breath, cough, or chest pain. He currently has no GI or complaints. He has no significant joint or bone pain. He does not have headache or dizziness. He has just a little bit of residual neuropathy in his hands and feet. Medications: Bystolic 1 Tablet (of 10 mg) Oral daily, Dronabinol 1 (5 mg) Capsule Oral b.i.d., Fluconazole 1 Tablet (of 100 mg) Oral daily, Gabapentin 1 Capsule (of 300 mg) Oral b.i.d., Glimepiride 1 Tablet (of 4 mg) Oral b.i.d., HumaLOG 200 Units (of 100 Units/mL) Subcutaneous PRN, Lantus 40 Units (of 100 Units/mL) Subcutaneous daily, Levothyroxine Sodium 1 Tablet (of 175 mcg) Oral daily, Nitrofurantoin Macrocrystal 1 Capsule (of 100 mg) Oral daily, oxyCODONE HCl 1 (5 mg) Tablet Oral q 4 hours PRN, Pantoprazole Sodium 1 Tablet (of 40 mg) Tablet, enteric coated Oral daily, Tamsulosin HCl 1 Cartridge (of 0.4 mg) Capsule Oral b.i.d., Timolol Maleate 1 Drop(s) (of 0.5 %) Solution Ophthalmic daily Allergies: Morphine Sulfate Vital Signs: Performed on Mar 01, 2021 11:47 Height - 75.00 in Weight - 233.8 lbs (HIGH) BSA - 2.34 sq.m BMI - 29.22 Temperature - 96.2 F (LOW) Pulse - 56 /min (LOW) Respiration - 18 /min BP - 143/75 mm(hg) (HIGH) O2 Sat - 97 % Pain - 0 Fatigue - 7 Physical Examination: Constitutional - He looks good generally, Eyes - Sclerae nonicteric. Conjunctivae clear, ENMT - No lesions noted in the oral cavity, Neck - There is some firmness in the right side of the neck, but without discrete mass palpable, Hematologic/Lymphatic - No other cervical, clavicular, or axillary adenopathy noted, Respiratory - Lungs are clear with good air movement bilaterally, Cardiovascular - Heart rhythm is regular. There is no murmur, gallop or rub noted, Abdomen - Soft. Liver and spleen are not enlarged. There is no abdominal mass or ascites noted and there is no inguinal adenopathy, Extremities - No edema, Neurologic - No focal neurologic deficits noted. Lab/Imaging: Test performed on Mar 01, 2021 08:30 Sodium 142 mmol/L Potassium 3.1 mmol/L Chloride 104 mmol/L CO2 30 mmol/L Anion Gap 11.1 BUN 6 mg/dL Creatinine 0.4 mg/dL Cr Clearance (Est) 314.3400 mL/min eGFR 225.0 mL/min Glucose 101 mg/dL Osmolality - Calculated 292 mOsm/kg Calcium 8.1 mg/dL Protein, Total 5.8 g/dL Albumin 3.8 g/dL Globulin 2.0 g/dL Bilirubin, Total 0.4 mg/dL ALT (SGPT) 14 U/L AST (SGOT) 16 U/L Alkaline Phosphatase 98 IU/L WBC 5.9 10 3/uL RBC 4.40 10 6/uL HGB 14.2 g/dL HCT 42.2 % MCV 95.9 fL MCH 32.3 pg MCHC 33.6 g/dL RDW 15.8 % Platelet Count 161 10 3/cmm MPV 9.9 fL Neutrophils 4.25 10 3/uL Lymphocytes 0.8 10 3/uL Monocytes 0.7 10 3/uL Eosinophils 0.1 10 3/uL Basophils 0.0 10 3/uL Neutrophil % 71.5 % Lymphocyte % 13.3 % Monocyte % 11.8 % Eosinophil % 2.4 % Basophils % 0.5 % NRBC % 0 % Problem List: 1. Well differentiated infiltrating adenocarcinoma involving the lower third of the esophagus, HER-2/quoc positive. He disease was stage IIIB (ypT3, ypN1, M0) at initial diagnosis in June 2018, but with subsequent progression to stage IV (M1), with involvement in the right paratracheal lymph node confirmed by EBUS/FNA biopsy on 02/05/2020. His next generation sequencing study by liquid biopsy showed no actionable mutations. 2. Hypertension. 3. Hyperlipidemia. 4. Type II diabetes. 5. Obstructive sleep apnea. 6. Degenerative arthritis. 7. He has posttraumatic glaucoma of the left eye. 8. He has a history of recurrent episodes of nephrolithiasis. 9. He has a history of diverticulitis. Problems Addressed with this Encounter and Plan: 1. Patient with well differentiated infiltrating adenocarcinoma involving the lower third of the esophagus, HER-2/quoc positive. He disease was stage IIIB (ypT3, ypN1, M0) at initial diagnosis in June 2018. His initial treatment included neoadjuvant chemoradiation utilizing weekly carboplatin/Taxol followed by [facility] Rusty esophagectomy on 10/30/2018. He had subsequent progression to stage IV (M1), with involvement in the right paratracheal lymph node confirmed by EBUS/FNA biopsy on 02/05/2020. His staging PET/CT showed uptake in the known involved right paratracheal lymph node and an additional area of uptake in a right cervical level IV territory node measuring 2.6 x 1.6 cm, SUV 4.0. With disease localized to right supraclavicular and right paratracheal lymph nodes, he was interested in pursuing local/regional treatment. His further treatment was complicated by COVID-19 virus infection, from which he had uneventful recovery. His restaging CT scans of the neck and chest on 04/30/2020 did show further progression of the lymphadenopathy, but still with localized involvement. He then began radiation to the right neck/upper chest on 05/04/2020. He completed treatment on 06/15/2020 to a total dose of [address] scans on 09/01/2020 showed no evidence of disease progression. At his follow-up visit on 10/06/2020 he had developed some coughing spells, occasionally with associated hemoptysis. His repeat chest CT on 10/13/2020 showed progression of the right paratracheal mass with apparent extension into the trachea. This was confirmed by bronchoscopy on 10/14/2020, with evidence of exophytic mass originating from the posterior tracheal membrane at the level of about 3.5 to 4 cm below the vocal cords with associated 85 to 90% occlusion of the lumen. Also noted at that time was development of a new metastatic lesion in the liver. He was admitted to [facility] where he underwent a palliative surgical procedure. On 11/18/2019 he began cycle 1 of systemic therapy with modified FOLFOX chemotherapy in combination with Herceptin. He had mild neuropathy lasting 3 days after that treatment. He also had some fatigue, but overall he tolerated it well. He continued with cycle 2 on 12/01/2020. With that treatment he had significantly more toxicity with increased fatigue, more severe neuropathy, and some stomatitis. In the meantime, he had returned to [facility] for re-resection of recurrent tracheal mass. He tolerated the surgery well. He continue with his third cycle of chemotherapy on 12/15/2020, but with omission of the oxaliplatin due to increased neuropathy. The oxaliplatin was restarted at a reduced dosage with cycle 4 on 12/29/2020. His cycle 5 on 01/12/2021 was administered with a further reduction in the oxaliplatin dosage, with omission of the 5-FU bolus, and with a dose reduction in the 5-FU infusion. With those changes, he had just mild neuropathy, but he continued to have severe fatigue. He proceeded with his 6th cycle of treatment on 01/26/2021. He had a follow-up visit at [facility] on 02/02/2021. His restaging CT scans showed a residual partially necrotic lesion involving the right aspect of the trachea along with stable right supraclavicular lymphadenopathy. There was resolution of previously noted metastatic lesion involving hepatic segment 7. With those findings, he was recommended to continue chemotherapy with infusional 5-FU and Herceptin at a 3-week dosing interval. His schedule treatment on 02/08/2021 was limited to just Herceptin, at his request. At this point he is feeling much better generally. He will now continue chemotherapy with infusional 5-FU and Herceptin. The dosages today will remain the same. He returns in 2 weeks, at which point his treatment will be adjusted to a 3-week dosing schedule. 2. Hypokalemia. It is being managed adequately with and oral potassium supplementation. Signed By: Jurgen Kearns M.D. <<Signature on File>>
== END 2021-03-03 23:59 | disposition home or self-care (01) ==
LOC: ONCMED 05:50
PROVIDERS: PCP Internal Medicine; Visit Provider Internal Medicine Medical Oncology
DX: Z51.11 Encounter for antineoplastic chemotherapy (principal); C15.5 Malignant neoplasm of lower third of esophagus; C77.1 Secondary and unspecified malignant neoplasm of intrathoracic lymph nodes; I10 Essential (primary) hypertension; E78.5 Hyperlipidemia, unspecified; E11.9 Type 2 diabetes mellitus without complications; G47.33 Obstructive sleep apnea (adult) (pediatric); M19.90 Unspecified osteoarthritis, unspecified site; H40.9 Unspecified glaucoma; Z87.442 Personal history of urinary calculi; Z87.19 Personal history of other diseases of the digestive system; Z79.899 Other long term (current) drug therapy
CPT/HCPCS: 80053; 85025; 96367; 96375; 96411; 96413; 96523; 99214; J1100; J1200; J2060; J2405; J7050; J9190; J9355

== ENCOUNTER 2021-04-02 05:46 | Outpatient (RCR) | payer OTHER, BC, SELFPAY ==
[2021-03-17 09:04] LABS: Basophils % 0.7 %; Eosinophils # 0.1 10^3/uL (0.0-0.8); Eosinophils % 2.3 %; Hematocrit 43.1 % (42.0-52.0); Hemoglobin 14.3 g/dL (11.7-16.6); Lymphocytes # 0.7 10^3/uL (0.8-4.8); Lymphocytes % 11.3 %; Mean Corpuscular HGB Conc 33.2 g/dL (30.0-36.0); Mean Corpuscular Hemoglobin 32.4 pg (28.0-34.0); Mean Corpuscular Volume 97.5 fL (80-94); Mean Platelet Volume 10.3 fL (7.4-10.4); Monocytes # 0.7 10^3/uL (0.2-0.9); Monocytes % 11.5 %; Neutrophils # 4.26 10^3/uL (1.8-7.7); Nucleated Red Blood Cells % 0 %; Platelet Count 151 10^3/cmm (130-400); Red Blood Count 4.42 10^6/uL (4.1-5.3); White Blood Count 5.8 10^3/uL (4.0-10.0)
[2021-03-17 09:22] LABS: Alanine Aminotransferase 15 U/L (0-41); Albumin Level 3.8 g/dL (3.5-5.2); Alkaline Phosphatase 105 IU/L (40-130); Anion Gap 14.6 (5-19); Aspartate Amino Transferase 18 U/L (0-40); Blood Urea Nitrogen 6 mg/dL (6-20); Calcium 8.5 mg/dL (8.5-10.5); Carbon Dioxide 25 mmol/L (22-29); Chloride 99 mmol/L (98-107); Glomerular Filtration Rate 140.9 mL/min (90-130); Glucose 269 mg/dL (65-115); Osmolality Calculated 287 mOsm/kg (285-295); Potassium 3.6 mmol/L (3.5-5.1); Sodium 135 mmol/L (136-145); Total Bilirubin 0.4 mg/dL (0.15-1.2); Total Protein 5.8 g/dL (6.6-8.7)
[2021-03-17] MEDS: acetaminophen 325 mg Tablet 650 MG PO (11:00)
[2021-03-17] MEDS: sodium chloride 0.9% 250 ML 75 ML IV (11:00)
[2021-03-17] MEDS: diphenhydrAMINE 50 mg/mL SDV 1mL 25 MG IV (11:02)
[2021-03-17] MEDS: LORazepam 2 mg/mL INJ 1 mL 0.5 MG IV (11:33)
--- NOTE | 2021-03-20 13:51 | ONC FU_ITS ---
Dr. Kearns Patient Follow-Up Note Patient: Ricky Flores Unit #: [id number]: [id number] Dicatated By: Jurgen Kearns M.D.Date of Visit:Mar 17, 2021 Onc Med Follow-up/Prog Note Chief Complaint: Esophageal cancer. 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 His disease was stage IIIB (ypT3, ypN1, M0) at initial diagnosis in June 2018, but with subsequent progression to stage IV (M1). He had presented with iron deficiency anemia and weight loss. He underwent EGD and colonoscopy on 06/15/2018. The colonoscopy showed 2 small sessile polyps in the mid transverse colon, both of which were removed endoscopically. The EGD showed a circumferential and partially obstructing, large size, malignant appearing mass in the lower third esophagus. The stomach and duodenum appeared unremarkable. Biopsy of the esophageal mass showed well-differentiated infiltrating adenocarcinoma with papillary histologic pattern. On subsequent evaluation, the tumor was confirmed to be MSI stable. It did show overexpression of HER-2/quoc, 3+ by IHC and amplification ratio by FISH of 1.8 with 7.3 HER-2 copies/cell. Staging CT scans of the chest, abdomen, and pelvis on 06/15/2018 showed increased soft tissue thickening suggested at the level of the gastroesophageal junction, estimated at 5 cm in width and 4 cm in depth. There was mild thickening of the wall of the distal esophagus. A superior right paratracheal lymph node measured 1.9 x 2.8 cm. The abdomen showed 2 adjacent perigastric lymph nodes near the greater curvature, located between the stomach and pancreas, measuring 1.7 and 2.2 cm. There was no other intra-abdominal or retroperitoneal adenopathy noted, and there was no evidence of other metastatic disease. Staging PET/CT on 06/23/2018 showed a 3 cm hypermetabolic segment of the distal esophagus with SUV 15.0, consistent with primary malignancy. A 2.2 cm gastrohepatic lymph node had SUV 4.1, consistent with local metastatic disease. There was no evidence for other metastatic involvement. The superior right paratracheal lymph node was noted to be FDG negative, consistent with benign disease. He underwent definitive treatment through the [facility]. His treatment included neoadjuvant chemoradiation utilizing weekly carboplatin/Taxol followed by [place] [facility] esophagectomy on 10/30/2018. I do not have the complete pathology report available, but the final staging was IIIB (ypT3, ypN1, M0). He was then followed on observation/expectant management. His surveillance CT scans of the chest, abdomen, and pelvis at [facility] on 01/15/2020 showed interval development of an 8 mm pulmonary nodule in the left major fissure and a 1.1 cm left lower lobe medial basal segment nodule, concerning for metastatic disease. A few other smaller nodules measuring 3 mm or less were also seen in the left lower lobe. There was interval enlargement of the right upper paratracheal lymph node measuring 2 cm. He then underwent EBUS with FNA biopsy of the right paratracheal lymph node on 02/05/2020. Pathology showed metastatic adenocarcinoma consistent with esophageal primary. He had medical oncology follow-up with Dr. Kulwant Knight on 02/13/2020. He was recommended to undergo placement of Port-A-Cath venous access device and to begin a course of chemotherapy with modified FOLFOX. A [employer] angelMD next generation sequencing study also was requested, biut there was insufficient material available to complete the study. A repeat PET/CT on 02/22/2020 showed interval development of 2 malignant lymph nodes, the dominant lesion in the right paratracheal area measuring 2.9 cm with SUV 6.8. The second was a lesion in the right cervical level IV territory measuring 2.6 x 1.6 cm, SUV 4.0. There were no other sites of abnormal FDG uptake on that study. With insufficient tissue sample available for any additional studies, I had requested a [facility] One next generation sequencing study by liquid biopsy. 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 There were no actionable mutations reported. I had been seeing him for a follow-up visit on 03/27/2020. With his disease apparently localized to the right paratracheal and lower right supraclavicular nodes, he was interested in pursuing local/regional treatment, and he then had radiation oncology consultation with Dr. Fidel Coronado. His further management was complicated by development of COVID-19 virus infection, confirmed on 04/13/2020. Restaging chest CT on 04/30/2020 showed masslike right paratracheal lymphadenopathy measuring 3.8 x 2.7 cm with mild mass-effect on the thoracic trachea. It had increased from 2.7 x 2.5 cm on the February PET/CT. A prominent left hilar lymph node measuring 12 mm appeared unchanged. The fibrotic appearing nodule in the left lower lobe on the January 2020 CT appeared to have resolved. Neck CT showed a large heterogeneous enhancing right supraclavicular lymph node measuring 3.5 x 1.8 cm, increased from 2.6 x 1.9 cm on the February PET/CT. He was able to begin radiation to the involved area in the right neck/upper chest on 05/04/2020. He completed treatment on 06/15/2020 to a total dose of [address] scans of the chest, abdomen, and pelvis on 07/20/2020 showed slight increase in the right paratracheal mass/adenopathy, measuring approximately 4 cm in maximum diameter. There was noted to be increasing tracheal displacement, but that was compared to the January 2020 CT scan. I reviewed the scans with the radiologist, and it appeared that the progression was very minimal. As such, I had recommended that he be just be followed on close observation. Restaging CT scans on 09/01/2020 showed slight interval improvement in the right supraclavicular lymph node measuring 1.9 x 1.5 x 1.2 cm. There was also slight improvement in right paratracheal lymphadenopathy measuring 2.3 x 2.2 x 3.3 cm. There was no evidence of disease progression. His repeat chest CT on 10/13/2020 showed significant progression in the right paratracheal lymphadenopathy. A soft tissue nodule was noted to be extending into the tracheal lumen. Also noted was development of a new lesion in the right lobe of the liver measuring 2.6 x 3.1 cm. Bronchoscopy on 10/14/2020 showed an exophytic mass originating from the posterior tracheal membrane located about 3.5 to 4 cm below the vocal cords. It was noted to occlude approximately 85 to 90% of the lumen. He was transferred urgently to [facility] for admission, and he subsequently underwent a palliative surgical procedure. Repeat CT scans at [facility] on 11/02/2020 showed residual right paratracheal mass measuring 3.3 x 3.0 cm with decreased luminal extension into the trachea. There was unchanged right supraclavicular lymphadenopathy measuring 1.4 x 1.7 cm. There was redemonstration of hepatic metastasis measuring 3.4 x 2.6 cm, with slight interval increase. He then returned here to begin systemic therapy with modified FOLFOX chemotherapy in combination with Herceptin. His other medical illnesses include hypertension, hypertriglyceridemia, type II diabetes, hypothyroidism, androgen deficiency, obstructive sleep apnea, degenerative arthritis, and glaucoma. He also has history of diverticulitis and a history of recurrent episodes of nephrolithiasis. His other surgeries include cataract excision from the left eye, carpal tunnel release on the left, vasectomy, and extracorporeal shockwave lithotripsy. He underwent right total hip arthroplasty on 07/29/2019. He is a non-smoker, but he had chewed tobacco for 35 years, estimated 2 to 3 cans/day. He does not drink alcohol. INTERIM HISTORY: He began cycle 1 of modified FOLFOX with Herceptin on 11/17/2020. He tolerated it pretty well, though he did experience some fatigue and some neuropathy with it. He continued with cycle 2 of modified FOLFOX with Herceptin on 12/01/2020. In the meantime, he been to [facility] for follow-up with his surgeon at [facility]. He was noted to have some regrowth of the tracheal mass. He then returned and underwent re-resection of the tracheal mass on 12/09/2020. He continued with cycle 3 of FOLFOX/Herceptin on 12/15/2020 and with cycle 4 on 12/29/2020. With cycle 3 the oxaliplatin was omitted due to worsening neuropathy symptoms. It was restarted with cycle 4 at a reduced dosage. His cycle 5 on 01/12/2021 was administered with a further dose reduction in the oxaliplatin and with a dose reduction in the 5-FU infusion. He had a follow-up visit at [facility] on 02/02/2021. His restaging CT scans show changes of bronchoscopic tumor debulking with a residual partially necrotic lesion involving the right aspect of the trachea and extending posteriorly. There was stable right supraclavicular lymphadenopathy and there was resolution of the previously noted hepatic segment 7 metastatic lesion. Overall, there was some evidence of response and no evidence of disease progression. With those findings, he was recommended to continue chemotherapy with infusional 5-FU together with Herceptin at a 3-week dosing interval. Due to a previously planned family vacation, his scheduled treatment on 02/08/2021 was limited to just Herceptin. He returned and continued treatment with infusional 5-FU in combination with Herceptin on 03/01/2021. He is seen for a followup visit. He has been feeling okay. He does complain that his energy is not very good and that he runs out of gas. He is able to do light work. ECOG score is 1. Appetite has been good since he has been using medical marijuana. He has no fever or night sweats. He has had no mouth sores. He has no difficulty swallowing. He has no shortness of breath, cough, or chest pain. He does have some nausea, occasionally with vomiting. He has diarrhea intermittently, maximum 3-4 stools per 24 hours. Bladder function is been okay. He has no significant joint or bone pain. He does not complain of headache or dizziness. He has had significant improvement in his neuropathy symptoms. Medications: Bystolic 1 Tablet (of 10 mg) Oral daily, Dronabinol 1 (5 mg) Capsule Oral b.i.d., Fluconazole 1 Tablet (of 100 mg) Oral daily, Gabapentin 1 Capsule (of 300 mg) Oral b.i.d., Glimepiride 1 Tablet (of 4 mg) Oral b.i.d., HumaLOG 200 Units (of 100 Units/mL) Subcutaneous PRN, Lantus 40 Units (of 100 Units/mL) Subcutaneous daily, Levothyroxine Sodium 1 Tablet (of 175 mcg) Oral daily, Nitrofurantoin Macrocrystal 1 Capsule (of 100 mg) Oral daily, oxyCODONE HCl 1 (5 mg) Tablet Oral q 4 hours PRN, Pantoprazole Sodium 1 Tablet (of 40 mg) Tablet, enteric coated Oral daily, Tamsulosin HCl 1 Cartridge (of 0.4 mg) Capsule Oral b.i.d., Timolol Maleate 1 Drop(s) (of 0.5 %) Solution Ophthalmic daily Allergies: Morphine Sulfate Vital Signs: Performed on Mar 17, 2021 11:14 Height - 75.00 in Weight - 232 lbs (LOW) BSA - 2.34 sq.m BMI - 29.00 Temperature - 97.3 F (LOW) Pulse - 54 /min (LOW) Respiration - 18 /min BP - 128/77 mm(hg) O2 Sat - 95 % (LOW) Pain - 0 Fatigue - 8 Physical Examination: Constitutional - He looks good generally, Eyes - Sclerae nonicteric. Conjunctivae clear, ENMT - No lesions noted in the oral cavity, Hematologic/Lymphatic - There is only minimal nodularity on the right side of the neck. There is no palpable cervical, clavicular, or axillary adenopathy, Respiratory - Lungs are clear with good air movement bilaterally, Cardiovascular - Heart rhythm is regular. There is no murmur, gallop or rub noted, Abdomen - Soft. Liver and spleen are not enlarged. There is no abdominal mass or ascites noted and there is no inguinal adenopathy, Extremities - No edema, Neurologic - No focal neurologic deficits noted. Lab/Imaging: Test performed on Mar 17, 2021 08:38 Sodium 135 mmol/L Potassium 3.6 mmol/L Chloride 99 mmol/L CO2 25 mmol/L Anion Gap 14.6 BUN 6 mg/dL Creatinine 0.6 mg/dL Cr Clearance (Est) 209.5600 mL/min eGFR 140.9 mL/min Glucose 269 mg/dL Osmolality - Calculated 287 mOsm/kg Calcium 8.5 mg/dL Protein, Total 5.8 g/dL Albumin 3.8 g/dL Globulin 2.0 g/dL Bilirubin, Total 0.4 mg/dL ALT (SGPT) 15 U/L AST (SGOT) 18 U/L Alkaline Phosphatase 105 IU/L WBC 5.8 10 3/uL RBC 4.42 10 6/uL HGB 14.3 g/dL HCT 43.1 % MCV 97.5 fL MCH 32.4 pg MCHC 33.2 g/dL RDW 15.0 % Platelet Count 151 10 3/cmm MPV 10.3 fL Neutrophils 4.26 10 3/uL Lymphocytes 0.7 10 3/uL Monocytes 0.7 10 3/uL Eosinophils 0.1 10 3/uL Basophils 0.0 10 3/uL Neutrophil % 74.0 % Lymphocyte % 11.3 % Monocyte % 11.5 % Eosinophil % 2.3 % Basophils % 0.7 % NRBC % 0 % Problem List: 1. Well differentiated infiltrating adenocarcinoma involving the lower third of the esophagus, HER-2/quoc positive. He disease was stage IIIB (ypT3, ypN1, M0) at initial diagnosis in June 2018, but with subsequent progression to stage IV (M1), with involvement in the right paratracheal lymph node confirmed by EBUS/FNA biopsy on 02/05/2020. His next generation sequencing study by liquid biopsy showed no actionable mutations. 2. Hypertension. 3. Hyperlipidemia. 4. Type II diabetes. 5. Obstructive sleep apnea. 6. Degenerative arthritis. 7. He has posttraumatic glaucoma of the left eye. 8. He has a history of recurrent episodes of nephrolithiasis. 9. He has a history of diverticulitis. Problems Addressed with this Encounter and Plan: 1. Patient with well differentiated infiltrating adenocarcinoma involving the lower third of the esophagus, HER-2/quoc positive. He disease was stage IIIB (ypT3, ypN1, M0) at initial diagnosis in June 2018. His initial treatment included neoadjuvant chemoradiation utilizing weekly carboplatin/Taxol followed by [place] [facility] esophagectomy on 10/30/2018. He had subsequent progression to stage IV (M1), with involvement in the right paratracheal lymph node confirmed by EBUS/FNA biopsy on 02/05/2020. His staging PET/CT showed uptake in the known involved right paratracheal lymph node and an additional area of uptake in a right cervical level IV territory node measuring 2.6 x 1.6 cm, SUV 4.0. With disease localized to right supraclavicular and right paratracheal lymph nodes, he was interested in pursuing local/regional treatment. His further treatment was complicated by COVID-19 virus infection, from which he had uneventful recovery. His restaging CT scans of the neck and chest on 04/30/2020 did show further progression of the lymphadenopathy, but still with localized involvement. He then began radiation to the right neck/upper chest on 05/04/2020. He completed treatment on 06/15/2020 to a total dose of [address] scans on 09/01/2020 showed no evidence of disease progression. At his follow-up visit on 10/06/2020 he had developed some coughing spells, occasionally with associated hemoptysis. His repeat chest CT on 10/13/2020 showed progression of the right paratracheal mass with apparent extension into the trachea. This was confirmed by bronchoscopy on 10/14/2020, with evidence of exophytic mass originating from the posterior tracheal membrane at the level of about 3.5 to 4 cm below the vocal cords with associated 85 to 90% occlusion of the lumen. Also noted at that time was development of a new metastatic lesion in the liver. He was admitted to [facility] where he underwent a palliative surgical procedure. On 11/18/2019 he began cycle 1 of systemic therapy with modified FOLFOX chemotherapy in combination with Herceptin. He had mild neuropathy lasting 3 days after that treatment. He also had some fatigue, but overall he tolerated it well. He continued with cycle 2 on 12/01/2020. With that treatment he had significantly more toxicity with increased fatigue, more severe neuropathy, and some stomatitis. In the meantime, he had returned to [facility] for re-resection of recurrent tracheal mass. He tolerated the surgery well. He continue with his third cycle of chemotherapy on 12/15/2020, but with omission of the oxaliplatin due to increased neuropathy. The oxaliplatin was restarted at a reduced dosage with cycle 4 on 12/29/2020. His cycle 5 on 01/12/2021 was administered with a further reduction in the oxaliplatin dosage, with omission of the 5-FU bolus, and with a dose reduction in the 5-FU infusion. With those changes, he had just mild neuropathy, but he continued to have severe fatigue. He proceeded with his 6th cycle of treatment on 01/26/2021. He had a follow-up visit at [facility] on 02/02/2021. His restaging CT scans showed a residual partially necrotic lesion involving the right aspect of the trachea along with stable right supraclavicular lymphadenopathy. There was resolution of previously noted metastatic lesion involving hepatic segment 7. With those findings, he was recommended to continue chemotherapy with infusional 5-FU and Herceptin. His schedule treatment on 02/08/2021 was limited to just Herceptin, at his request. He then began treatment with infusional 5-FU in combination with Herceptin on 03/01/2021. He continues to have some treatment related fatigue. He also has mild diarrhea. Overall, though, he appears to be tolerating it well. He will proceed now with his 2nd cycle of infusional 5-FU/Herceptin. The dosages remain the same. He will return for treatment in 2 weeks and for a follow-up visit in 4 weeks. 2. Hypokalemia. It is being managed adequately with and oral potassium supplementation. Signed By: Jurgen Kearns M.D. <<Signature on File>>
[2021-03-31 08:32] LABS: Basophils % 0.5 %; Eosinophils # 0.1 10^3/uL (0.0-0.8); Eosinophils % 2.3 %; Hematocrit 42.4 % (42.0-52.0); Hemoglobin 14.3 g/dL (11.7-16.6); Lymphocytes # 0.7 10^3/uL (0.8-4.8); Lymphocytes % 13.2 %; Mean Corpuscular HGB Conc 33.7 g/dL (30.0-36.0); Mean Corpuscular Hemoglobin 32.8 pg (28.0-34.0); Mean Corpuscular Volume 97.2 fL (80-94); Mean Platelet Volume 9.7 fL (7.4-10.4); Monocytes # 0.8 10^3/uL (0.2-0.9); Monocytes % 13.4 %; Neutrophils # 3.92 10^3/uL (1.8-7.7); Neutrophils % 70.2 %; Nucleated Red Blood Cells % 0 %; Platelet Count 146 10^3/cmm (130-400); Red Blood Count 4.36 10^6/uL (4.1-5.3); Red Cell Distribution Width 14.8 % (12.1-15.1); White Blood Count 5.6 10^3/uL (4.0-10.0)
[2021-03-31 09:28] LABS: Alanine Aminotransferase 13 U/L (0-41); Alkaline Phosphatase 94 IU/L (40-130); Anion Gap 13.8 (5-19); Aspartate Amino Transferase 13 U/L (0-40); Blood Urea Nitrogen 10 mg/dL (6-20); Calcium 8.6 mg/dL (8.5-10.5); Carbon Dioxide 28 mmol/L (22-29); Chloride 101 mmol/L (98-107); Globulin 2.1 g/dL (1.3-4.6); Glomerular Filtration Rate 140.9 mL/min (90-130); Glucose 229 mg/dL (65-115); Osmolality Calculated 294 mOsm/kg (285-295); Potassium 3.8 mmol/L (3.5-5.1); Sodium 139 mmol/L (136-145); Total Bilirubin 0.4 mg/dL (0.15-1.2); Total Protein 6.1 g/dL (6.6-8.7)
[2021-03-31] MEDS: acetaminophen 325 mg Tablet 650 MG PO (09:30)
[2021-03-31] MEDS: diphenhydrAMINE 50 mg/mL SDV 1mL 25 MG IV (09:30)
[2021-03-31] MEDS: sodium chloride 0.9% 250 ML 75 ML IV (09:30)
[2021-03-31] MEDS: LORazepam 2 mg/mL INJ 1 mL 0.5 MG IV (09:34)
== END 2021-04-03 23:59 | disposition home or self-care (01) ==
LOC: ONCMED 05:46
PROVIDERS: PCP Internal Medicine; Visit Provider Internal Medicine Medical Oncology
DX: Z51.11 Encounter for antineoplastic chemotherapy (principal); C15.5 Malignant neoplasm of lower third of esophagus; C77.1 Secondary and unspecified malignant neoplasm of intrathoracic lymph nodes; I10 Essential (primary) hypertension; E78.5 Hyperlipidemia, unspecified; E11.9 Type 2 diabetes mellitus without complications; G47.33 Obstructive sleep apnea (adult) (pediatric); M19.90 Unspecified osteoarthritis, unspecified site; H40.9 Unspecified glaucoma; K57.92 Diverticulitis of intestine, part unspecified, without perforation or abscess without bleeding; Z87.442 Personal history of urinary calculi; Z79.899 Other long term (current) drug therapy
CPT/HCPCS: 80053; 85025; 96367; 96375; 96411; 96413; 96523; 99214; J1100; J1200; J2060; J7050; J9190; J9355

== ENCOUNTER 2021-04-30 05:38 | Outpatient (RCR) | payer BC, SELFPAY ==
[2021-04-14 08:46] LABS: Basophils % 0.7 %; Eosinophils # 0.2 10^3/uL (0.0-0.8); Eosinophils % 2.9 %; Lymphocytes % 18.7 %; Mean Corpuscular HGB Conc 34.1 g/dL (30.0-36.0); Mean Corpuscular Hemoglobin 32.8 pg (28.0-34.0); Mean Corpuscular Volume 96.3 fL (80-94); Mean Platelet Volume 9.9 fL (7.4-10.4); Monocytes # 0.7 10^3/uL (0.2-0.9); Monocytes % 11.9 %; Neutrophils # 3.57 10^3/uL (1.8-7.7); Neutrophils % 65.4 %; Nucleated Red Blood Cells % 0 %; Platelet Count 163 10^3/cmm (130-400); Red Blood Count 4.57 10^6/uL (4.1-5.3); Red Cell Distribution Width 14.2 % (12.1-15.1); White Blood Count 5.5 10^3/uL (4.0-10.0)
[2021-04-14 09:12] LABS: Alanine Aminotransferase 12 U/L (0-41); Alkaline Phosphatase 94 IU/L (40-130); Aspartate Amino Transferase 15 U/L (0-40); Blood Urea Nitrogen 7 mg/dL (6-20); Calcium 8.5 mg/dL (8.5-10.5); Carbon Dioxide 28 mmol/L (22-29); Globulin 2.2 g/dL (1.3-4.6); Glomerular Filtration Rate 173.9 mL/min (90-130); Glucose 89 mg/dL (65-115); Total Bilirubin 0.4 mg/dL (0.15-1.2); Total Protein 6.2 g/dL (6.6-8.7)
[2021-04-14 09:58] LABS: Anion Gap 14.3 (5-19); Chloride 102 mmol/L (98-107); Osmolality Calculated 289 mOsm/kg (285-295); Potassium 3.3 mmol/L (3.5-5.1); Sodium 141 mmol/L (136-145)
[2021-04-14] MEDS: sodium chloride 0.9% 250 ML 75 ML IV (10:00)
[2021-04-14] MEDS: acetaminophen 325 mg Tablet 650 MG PO (10:00)
[2021-04-14] MEDS: loratadine 10 mg Tablet PO (10:00)
--- NOTE | 2021-04-14 17:44 | ONC FU_ITS ---
Dr. Kearns Patient Follow-Up Note Patient: Ricky Flores Unit #: [id number]: 1965 Dicatated By: Jurgen Kearns M.D.Date of Visit:Apr 14, 2021 Onc Med Follow-up/Prog Note Chief Complaint: Esophageal cancer. 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 His disease was stage IIIB (ypT3, ypN1, M0) at initial diagnosis in June 2018, but with subsequent progression to stage IV (M1). He had presented with iron deficiency anemia and weight loss. He underwent EGD and colonoscopy on 06/15/2018. The colonoscopy showed 2 small sessile polyps in the mid transverse colon, both of which were removed endoscopically. The EGD showed a circumferential and partially obstructing, large size, malignant appearing mass in the lower third esophagus. The stomach and duodenum appeared unremarkable. Biopsy of the esophageal mass showed well-differentiated infiltrating adenocarcinoma with papillary histologic pattern. On subsequent evaluation, the tumor was confirmed to be MSI stable. It did show overexpression of HER-2/quoc, 3+ by IHC and amplification ratio by FISH of 1.8 with 7.3 HER-2 copies/cell. Staging CT scans of the chest, abdomen, and pelvis on 06/15/2018 showed increased soft tissue thickening suggested at the level of the gastroesophageal junction, estimated at 5 cm in width and 4 cm in depth. There was mild thickening of the wall of the distal esophagus. A superior right paratracheal lymph node measured 1.9 x 2.8 cm. The abdomen showed 2 adjacent perigastric lymph nodes near the greater curvature, located between the stomach and pancreas, measuring 1.7 and 2.2 cm. There was no other intra-abdominal or retroperitoneal adenopathy noted, and there was no evidence of other metastatic disease. Staging PET/CT on 06/23/2018 showed a 3 cm hypermetabolic segment of the distal esophagus with SUV 15.0, consistent with primary malignancy. A 2.2 cm gastrohepatic lymph node had SUV 4.1, consistent with local metastatic disease. There was no evidence for other metastatic involvement. The superior right paratracheal lymph node was noted to be FDG negative, consistent with benign disease. He underwent definitive treatment through the [facility]. His treatment included neoadjuvant chemoradiation utilizing weekly carboplatin/Taxol followed by Mineral Rusty esophagectomy on 10/30/2018. I do not have the complete pathology report available, but the final staging was IIIB (ypT3, ypN1, M0). He was then followed on observation/expectant management. His surveillance CT scans of the chest, abdomen, and pelvis at [facility] on 01/15/2020 showed interval development of an 8 mm pulmonary nodule in the left major fissure and a 1.1 cm left lower lobe medial basal segment nodule, concerning for metastatic disease. A few other smaller nodules measuring 3 mm or less were also seen in the left lower lobe. There was interval enlargement of the right upper paratracheal lymph node measuring 2 cm. He then underwent EBUS with FNA biopsy of the right paratracheal lymph node on 02/05/2020. Pathology showed metastatic adenocarcinoma consistent with esophageal primary. He had medical oncology follow-up with Dr. Kulwant Knight on 02/13/2020. He was recommended to undergo placement of Port-A-Cath venous access device and to begin a course of chemotherapy with modified FOLFOX. A [employer] next generation sequencing study also was requested, biut there was insufficient material available to complete the study. A repeat PET/CT on 02/22/2020 showed interval development of 2 malignant lymph nodes, the dominant lesion in the right paratracheal area measuring 2.9 cm with SUV 6.8. The second was a lesion in the right cervical level IV territory measuring 2.6 x 1.6 cm, SUV 4.0. There were no other sites of abnormal FDG uptake on that study. With insufficient tissue sample available for any additional studies, I had requested a [employer] next generation sequencing study by liquid biopsy. 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 There were no actionable mutations reported. I had been seeing him for a follow-up visit on 03/27/2020. With his disease apparently localized to the right paratracheal and lower right supraclavicular nodes, he was interested in pursuing local/regional treatment, and he then had radiation oncology consultation with Dr. Fidel Coronado. His further management was complicated by development of COVID-19 virus infection, confirmed on 04/13/2020. Restaging chest CT on 04/30/2020 showed masslike right paratracheal lymphadenopathy measuring 3.8 x 2.7 cm with mild mass-effect on the thoracic trachea. It had increased from 2.7 x 2.5 cm on the February PET/CT. A prominent left hilar lymph node measuring 12 mm appeared unchanged. The fibrotic appearing nodule in the left lower lobe on the January 2020 CT appeared to have resolved. Neck CT showed a large heterogeneous enhancing right supraclavicular lymph node measuring 3.5 x 1.8 cm, increased from 2.6 x 1.9 cm on the February PET/CT. He was able to begin radiation to the involved area in the right neck/upper chest on 05/04/2020. He completed treatment on 06/15/2020 to a total dose of [address] scans of the chest, abdomen, and pelvis on 07/20/2020 showed slight increase in the right paratracheal mass/adenopathy, measuring approximately 4 cm in maximum diameter. There was noted to be increasing tracheal displacement, but that was compared to the January 2020 CT scan. I reviewed the scans with the radiologist, and it appeared that the progression was very minimal. As such, I had recommended that he be just be followed on close observation. Restaging CT scans on 09/01/2020 showed slight interval improvement in the right supraclavicular lymph node measuring 1.9 x 1.5 x 1.2 cm. There was also slight improvement in right paratracheal lymphadenopathy measuring 2.3 x 2.2 x 3.3 cm. There was no evidence of disease progression. His repeat chest CT on 10/13/2020 showed significant progression in the right paratracheal lymphadenopathy. A soft tissue nodule was noted to be extending into the tracheal lumen. Also noted was development of a new lesion in the right lobe of the liver measuring 2.6 x 3.1 cm. Bronchoscopy on 10/14/2020 showed an exophytic mass originating from the posterior tracheal membrane located about 3.5 to 4 cm below the vocal cords. It was noted to occlude approximately 85 to 90% of the lumen. He was transferred urgently to [facility] for admission, and he subsequently underwent a palliative surgical procedure. Repeat CT scans at [facility] on 11/02/2020 showed residual right paratracheal mass measuring 3.3 x 3.0 cm with decreased luminal extension into the trachea. There was unchanged right supraclavicular lymphadenopathy measuring 1.4 x 1.7 cm. There was redemonstration of hepatic metastasis measuring 3.4 x 2.6 cm, with slight interval increase. He then returned here to begin systemic therapy with modified FOLFOX chemotherapy in combination with Herceptin. His other medical illnesses include hypertension, hypertriglyceridemia, type II diabetes, hypothyroidism, androgen deficiency, obstructive sleep apnea, degenerative arthritis, and glaucoma. He also has history of diverticulitis and a history of recurrent episodes of nephrolithiasis. His other surgeries include cataract excision from the left eye, carpal tunnel release on the left, vasectomy, and extracorporeal shockwave lithotripsy. He underwent right total hip arthroplasty on 07/29/2019. He is a non-smoker, but he had chewed tobacco for 35 years, estimated 2 to 3 cans/day. He does not drink alcohol. INTERIM HISTORY: He began cycle 1 of modified FOLFOX with Herceptin on 11/17/2020. He tolerated it pretty well, though he did experience some fatigue and some neuropathy with it. He continued with cycle 2 of modified FOLFOX with Herceptin on 12/01/2020. In the meantime, he been to [facility] for follow-up with his surgeon at [facility]. He was noted to have some regrowth of the tracheal mass. He then returned and underwent re-resection of the tracheal mass on 12/09/2020. He continued with cycle 3 of FOLFOX/Herceptin on 12/15/2020 and with cycle 4 on 12/29/2020. With cycle 3 the oxaliplatin was omitted due to worsening neuropathy symptoms. It was restarted with cycle 4 at a reduced dosage. His cycle 5 on 01/12/2021 was administered with a further dose reduction in the oxaliplatin and with a dose reduction in the 5-FU infusion. He had a follow-up visit at [facility] on 02/02/2021. His restaging CT scans show changes of bronchoscopic tumor debulking with a residual partially necrotic lesion involving the right aspect of the trachea and extending posteriorly. There was stable right supraclavicular lymphadenopathy and there was resolution of the previously noted hepatic segment 7 metastatic lesion. Overall, there was some evidence of response and no evidence of disease progression. With those findings, he was recommended to continue chemotherapy with infusional 5-FU together with Herceptin at a 3-week dosing interval. Due to a previously planned family vacation, his scheduled treatment on 02/08/2021 was limited to just Herceptin. He returned and continued treatment with infusional 5-FU in combination with Herceptin on 03/01/2021. He is seen for a followup visit. He has been feeling good generally. His energy has been getting better and he has improved activity tolerance. His ECOG score is 1. His appetite is variable. He has no fever or night sweats. He has had no mouth sores. He has no shortness of breath, cough, or chest pain. He has no GI or complaints. He has no significant joint or bone pain. He has just very mild residual neuropathy. Medications: Bystolic 1 Tablet (of 10 mg) Oral daily, Dronabinol 1 (5 mg) Capsule Oral b.i.d., Fluconazole 1 Tablet (of 100 mg) Oral daily, Gabapentin 1 Capsule (of 300 mg) Oral b.i.d., Glimepiride 1 Tablet (of 4 mg) Oral b.i.d., HumaLOG 200 Units (of 100 Units/mL) Subcutaneous PRN, Lantus 40 Units (of 100 Units/mL) Subcutaneous daily, Levothyroxine Sodium 1 Tablet (of 175 mcg) Oral daily, Nitrofurantoin Macrocrystal 1 Capsule (of 100 mg) Oral daily, oxyCODONE HCl 1 (5 mg) Tablet Oral q 4 hours PRN, Pantoprazole Sodium 1 Tablet (of 40 mg) Tablet, enteric coated Oral daily, Tamsulosin HCl 1 Cartridge (of 0.4 mg) Capsule Oral b.i.d., Timolol Maleate 1 Drop(s) (of 0.5 %) Solution Ophthalmic daily Allergies: Morphine Sulfate Vital Signs: Performed on Apr 14, 2021 10:12 Height - 75.00 in Weight - 229.6 lbs (LOW) BSA - 2.33 sq.m BMI - 28.70 Temperature - 96.9 F (LOW) Pulse - 54 /min (LOW) Respiration - 18 /min BP - 138/86 mm(hg) O2 Sat - 97 % Pain - 0 Fatigue - 6 Physical Examination: Constitutional - He looks good generally, Eyes - Sclerae nonicteric. Conjunctivae clear, ENMT - No lesions noted in the oral cavity, Hematologic/Lymphatic - There is no cervical, clavicular, or axillary adenopathy noted, Respiratory - Lungs are clear with good air movement bilaterally, Cardiovascular - Heart rhythm is regular. There is no murmur, gallop or rub noted, Abdomen - Soft. Liver and spleen are not enlarged. There is no abdominal mass or ascites noted and there is no inguinal adenopathy, Extremities - No edema, Neurologic - No focal neurologic deficits noted. Lab/Imaging: Test performed on Apr 14, 2021 08:10 Sodium 141 mmol/L Potassium 3.3 mmol/L Chloride 102 mmol/L CO2 28 mmol/L Anion Gap 14.3 BUN 7 mg/dL Creatinine 0.5 mg/dL Cr Clearance (Est) 251.4700 mL/min eGFR 173.9 mL/min Glucose 89 mg/dL Osmolality - Calculated 289 mOsm/kg Calcium 8.5 mg/dL Protein, Total 6.2 g/dL Albumin 4.0 g/dL Globulin 2.2 g/dL Bilirubin, Total 0.4 mg/dL ALT (SGPT) 12 U/L AST (SGOT) 15 U/L Alkaline Phosphatase 94 IU/L WBC 5.5 10 3/uL RBC 4.57 10 6/uL HGB 15.0 g/dL HCT 44.0 % MCV 96.3 fL MCH 32.8 pg MCHC 34.1 g/dL RDW 14.2 % Platelet Count 163 10 3/cmm MPV 9.9 fL Neutrophils 3.57 10 3/uL Lymphocytes 1.0 10 3/uL Monocytes 0.7 10 3/uL Eosinophils 0.2 10 3/uL Basophils 0.0 10 3/uL Neutrophil % 65.4 % Lymphocyte % 18.7 % Monocyte % 11.9 % Eosinophil % 2.9 % Basophils % 0.7 % NRBC % 0 % Problem List: 1. Well differentiated infiltrating adenocarcinoma involving the lower third of the esophagus, HER-2/quoc positive. He disease was stage IIIB (ypT3, ypN1, M0) at initial diagnosis in June 2018, but with subsequent progression to stage IV (M1), with involvement in the right paratracheal lymph node confirmed by EBUS/FNA biopsy on 02/05/2020. His next generation sequencing study by liquid biopsy showed no actionable mutations. 2. Hypertension. 3. Hyperlipidemia. 4. Type II diabetes. 5. Obstructive sleep apnea. 6. Degenerative arthritis. 7. He has posttraumatic glaucoma of the left eye. 8. He has a history of recurrent episodes of nephrolithiasis. 9. He has a history of diverticulitis. Problems Addressed with this Encounter and Plan: Patient with well differentiated infiltrating adenocarcinoma involving the lower third of the esophagus, HER-2/quoc positive. He disease was stage IIIB (ypT3, ypN1, M0) at initial diagnosis in June 2018. His initial treatment included neoadjuvant chemoradiation utilizing weekly carboplatin/Taxol followed by Mineral Rusty esophagectomy on 10/30/2018. He had subsequent progression to stage IV (M1), with involvement in the right paratracheal lymph node confirmed by EBUS/FNA biopsy on 02/05/2020. His staging PET/CT showed uptake in the known involved right paratracheal lymph node and an additional area of uptake in a right cervical level IV territory node measuring 2.6 x 1.6 cm, SUV 4.0. With disease localized to right supraclavicular and right paratracheal lymph nodes, he was interested in pursuing local/regional treatment. His further treatment was complicated by COVID-19 virus infection, from which he had uneventful recovery. His restaging CT scans of the neck and chest on 04/30/2020 did show further progression of the lymphadenopathy, but still with localized involvement. He then began radiation to the right neck/upper chest on 05/04/2020. He completed treatment on 06/15/2020 to a total dose of [address] scans on 09/01/2020 showed no evidence of disease progression. At his follow-up visit on 10/06/2020 he had developed some coughing spells, occasionally with associated hemoptysis. His repeat chest CT on 10/13/2020 showed progression of the right paratracheal mass with apparent extension into the trachea. This was confirmed by bronchoscopy on 10/14/2020, with evidence of exophytic mass originating from the posterior tracheal membrane at the level of about 3.5 to 4 cm below the vocal cords with associated 85 to 90% occlusion of the lumen. Also noted at that time was development of a new metastatic lesion in the liver. He was admitted to [facility] where he underwent a palliative surgical procedure. On 11/18/2019 he began cycle 1 of systemic therapy with modified FOLFOX chemotherapy in combination with Herceptin. He had mild neuropathy lasting 3 days after that treatment. He also had some fatigue, but overall he tolerated it well. He continued with cycle 2 on 12/01/2020. With that treatment he had significantly more toxicity with increased fatigue, more severe neuropathy, and some stomatitis. In the meantime, he had returned to [facility] for re-resection of recurrent tracheal mass. He tolerated the surgery well. He continue with his third cycle of chemotherapy on 12/15/2020, but with omission of the oxaliplatin due to increased neuropathy. The oxaliplatin was restarted at a reduced dosage with cycle 4 on 12/29/2020. His cycle 5 on 01/12/2021 was administered with a further reduction in the oxaliplatin dosage, with omission of the 5-FU bolus, and with a dose reduction in the 5-FU infusion. With those changes, he had just mild neuropathy, but he continued to have severe fatigue. He proceeded with his 6th cycle of treatment on 01/26/2021. He had a follow-up visit at [facility] on 02/02/2021. His restaging CT scans showed a residual partially necrotic lesion involving the right aspect of the trachea along with stable right supraclavicular lymphadenopathy. There was resolution of previously noted metastatic lesion involving hepatic segment 7. With those findings, he was recommended to continue chemotherapy with infusional 5-FU and Herceptin. His schedule treatment on 02/08/2021 was limited to just Herceptin, at his request. He then began treatment with infusional 5-FU in combination with Herceptin on 03/01/2021. He has been tolerating the treatment very well, and he has been feeling better generally since the change in his chemotherapy. He will proceed with cycle 3 of infusional 5-FU/Herceptin. The dosages remain the same. He will return for treatment in 2 weeks and for a follow-up visit in 4 weeks. Signed By: Jurgen Kearns M.D. <<Signature on File>>
[2021-04-28 08:40] LABS: Basophils % 0.6 %; Eosinophils # 0.2 10^3/uL (0.0-0.8); Eosinophils % 3.7 %; Hematocrit 45.5 % (42.0-52.0); Lymphocytes # 0.9 10^3/uL (0.8-4.8); Lymphocytes % 18.5 %; Mean Corpuscular Hemoglobin 32.5 pg (28.0-34.0); Mean Corpuscular Volume 98.5 fl (80-94); Mean Platelet Volume 9.7 fL (7.4-10.4); Monocytes # 0.7 10^3/uL (0.2-0.9); Monocytes % 14.4 %; Neutrophils # 2.89 10^3/uL (1.8-7.7); Neutrophils % 62.4 %; Nucleated Red Blood Cells % 0 %; Platelet Count 140 10^3/cmm (130-400); Red Blood Count 4.62 10^6/uL (4.1-5.3); Red Cell Distribution Width 14.8 % (12.1-15.1); White Blood Count 4.6 10^3/uL (4.0-10.0)
[2021-04-28 09:07] LABS: Alanine Aminotransferase 16 U/L (0-41); Alkaline Phosphatase 99 IU/L (40-130); Aspartate Amino Transferase 21 U/L (0-40); Blood Urea Nitrogen 10 mg/dL (6-20); Calcium 8.8 mg/dL (8.5-10.5); Carbon Dioxide 27 mmol/L (22-29); Chloride 100 mmol/L (98-107); Globulin 2.2 g/dL (1.3-4.6); Glomerular Filtration Rate 140.9 mL/min (90-130); Glucose 111 mg/dL (65-115); Osmolality Calculated 284 mOsm/kg (285-295); Sodium 137 mmol/L (136-145); Total Bilirubin 0.4 mg/dL (0.15-1.2); Total Protein 6.2 g/dL (6.6-8.7)
[2021-04-28] MEDS: acetaminophen 325 mg Tablet 650 MG PO (09:46)
[2021-04-28] MEDS: sodium chloride 0.9% 250 ML 75 ML IV (09:46)
[2021-04-28] MEDS: diphenhydrAMINE 50 mg/mL SDV 1mL 25 MG IV (09:46)
[2021-04-28] MEDS: LORazepam 2 mg/mL INJ 1 mL 0.5 MG IV (10:40)
== END 2021-05-04 23:59 | disposition home or self-care (01) ==
LOC: ONCMED 05:38
PROVIDERS: PCP Internal Medicine; Visit Provider Internal Medicine Medical Oncology
DX: Z51.11 Encounter for antineoplastic chemotherapy (principal); C15.5 Malignant neoplasm of lower third of esophagus; I10 Essential (primary) hypertension; E78.5 Hyperlipidemia, unspecified; E11.9 Type 2 diabetes mellitus without complications; G47.33 Obstructive sleep apnea (adult) (pediatric); M19.90 Unspecified osteoarthritis, unspecified site; H40.9 Unspecified glaucoma; K57.92 Diverticulitis of intestine, part unspecified, without perforation or abscess without bleeding; Z87.442 Personal history of urinary calculi; Z79.899 Other long term (current) drug therapy
CPT/HCPCS: 80053; 85025; 96367; 96375; 96411; 96413; 96416; 96523; 99214; J1100; J1200; J2060; J7050; J9190; J9355

== ENCOUNTER 2021-06-03 06:25 | Outpatient (RCR) | payer BC, SELFPAY ==
[2021-05-12 09:41] LABS: Basophils % 0.7 %; Eosinophils # 0.2 10^3/uL (0.0-0.8); Hematocrit 45.1 % (42.0-52.0); Hemoglobin 14.7 g/dL (11.7-16.6); Lymphocytes # 0.7 10^3/uL (0.8-4.8); Lymphocytes % 12.5 %; Mean Corpuscular HGB Conc 32.6 g/dL (30.0-36.0); Mean Corpuscular Hemoglobin 32.1 pg (28.0-34.0); Mean Corpuscular Volume 98.5 fl (80-94); Mean Platelet Volume 9.9 fL (7.4-10.4); Monocytes # 0.7 10^3/uL (0.2-0.9); Monocytes % 12.3 %; Neutrophils # 4.06 10^3/uL (1.8-7.7); Neutrophils % 71.1 %; Nucleated Red Blood Cells % 0 %; Platelet Count 131 10^3/cmm (130-400); Red Blood Count 4.58 10^6/uL (4.1-5.3); Red Cell Distribution Width 15.1 % (12.1-15.1); White Blood Count 5.7 10^3/uL (4.0-10.0)
[2021-05-12 10:29] LABS: Alanine Aminotransferase 18 U/L (0-41); Alkaline Phosphatase 102 IU/L (40-130); Anion Gap 13.8 (5-19); Aspartate Amino Transferase 19 U/L (0-40); Blood Urea Nitrogen 8 mg/dL (6-20); Calcium 8.9 mg/dL (8.5-10.5); Carbon Dioxide 29 mmol/L (22-29); Chloride 102 mmol/L (98-107); Globulin 2.3 g/dL (1.3-4.6); Glucose 152 mg/dL (65-115); Osmolality Calculated 293 mOsm/kg (285-295); Potassium 3.8 mmol/L (3.5-5.1); Sodium 141 mmol/L (136-145); Total Bilirubin 0.4 mg/dL (0.15-1.2); Total Protein 6.3 g/dL (6.6-8.7)
[2021-05-12] MEDS: sodium chloride 0.9% 250 ML 300 ML IV (10:50)
[2021-05-12] MEDS: acetaminophen 325 mg Tablet 650 MG PO (10:50)
[2021-05-12] MEDS: loratadine 10 mg Tablet PO (11:22)
--- NOTE | 2021-05-12 17:52 | ONC FU_ITS ---
Dr. Kearns Patient Follow-Up Note Patient: Ricky Flores Unit #: [id number]: [id number] Dicatated By: Jurgen Kearns M.D.Date of Visit:May 12, 2021 Onc Med Follow-up/Prog Note Chief Complaint: Esophageal cancer. 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 His disease was stage IIIB (ypT3, ypN1, M0) at initial diagnosis in June 2018, but with subsequent progression to stage IV (M1). He had presented with iron deficiency anemia and weight loss. He underwent EGD and colonoscopy on 06/15/2018. The colonoscopy showed 2 small sessile polyps in the mid transverse colon, both of which were removed endoscopically. The EGD showed a circumferential and partially obstructing, large size, malignant appearing mass in the lower third esophagus. The stomach and duodenum appeared unremarkable. Biopsy of the esophageal mass showed well-differentiated infiltrating adenocarcinoma with papillary histologic pattern. On subsequent evaluation, the tumor was confirmed to be MSI stable. It did show overexpression of HER-2/quoc, 3+ by IHC and amplification ratio by FISH of 1.8 with 7.3 HER-2 copies/cell. Staging CT scans of the chest, abdomen, and pelvis on 06/15/2018 showed increased soft tissue thickening suggested at the level of the gastroesophageal junction, estimated at 5 cm in width and 4 cm in depth. There was mild thickening of the wall of the distal esophagus. A superior right paratracheal lymph node measured 1.9 x 2.8 cm. The abdomen showed 2 adjacent perigastric lymph nodes near the greater curvature, located between the stomach and pancreas, measuring 1.7 and 2.2 cm. There was no other intra-abdominal or retroperitoneal adenopathy noted, and there was no evidence of other metastatic disease. Staging PET/CT on 06/23/2018 showed a 3 cm hypermetabolic segment of the distal esophagus with SUV 15.0, consistent with primary malignancy. A 2.2 cm gastrohepatic lymph node had SUV 4.1, consistent with local metastatic disease. There was no evidence for other metastatic involvement. The superior right paratracheal lymph node was noted to be FDG negative, consistent with benign disease. He underwent definitive treatment through the [facility]. His treatment included neoadjuvant chemoradiation utilizing weekly carboplatin/Taxol followed by [place] [facility] esophagectomy on 10/30/2018. I do not have the complete pathology report available, but the final staging was IIIB (ypT3, ypN1, M0). He was then followed on observation/expectant management. His surveillance CT scans of the chest, abdomen, and pelvis at [facility] on 01/15/2020 showed interval development of an 8 mm pulmonary nodule in the left major fissure and a 1.1 cm left lower lobe medial basal segment nodule, concerning for metastatic disease. A few other smaller nodules measuring 3 mm or less were also seen in the left lower lobe. There was interval enlargement of the right upper paratracheal lymph node measuring 2 cm. He then underwent EBUS with FNA biopsy of the right paratracheal lymph node on 02/05/2020. Pathology showed metastatic adenocarcinoma consistent with esophageal primary. He had medical oncology follow-up with Dr. Kulwant Knight on 02/13/2020. He was recommended to undergo placement of Port-A-Cath venous access device and to begin a course of chemotherapy with modified FOLFOX. A [facility] [employer] (NIH) next generation sequencing study also was requested, biut there was insufficient material available to complete the study. A repeat PET/CT on 02/22/2020 showed interval development of 2 malignant lymph nodes, the dominant lesion in the right paratracheal area measuring 2.9 cm with SUV 6.8. The second was a lesion in the right cervical level IV territory measuring 2.6 x 1.6 cm, SUV 4.0. There were no other sites of abnormal FDG uptake on that study. With insufficient tissue sample available for any additional studies, I had requested a [employer] One next generation sequencing study by liquid biopsy. 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 There were no actionable mutations reported. I had been seeing him for a follow-up visit on 03/27/2020. With his disease apparently localized to the right paratracheal and lower right supraclavicular nodes, he was interested in pursuing local/regional treatment, and he then had radiation oncology consultation with Dr. Fidel Coronado. His further management was complicated by development of COVID-19 virus infection, confirmed on 04/13/2020. Restaging chest CT on 04/30/2020 showed masslike right paratracheal lymphadenopathy measuring 3.8 x 2.7 cm with mild mass-effect on the thoracic trachea. It had increased from 2.7 x 2.5 cm on the February PET/CT. A prominent left hilar lymph node measuring 12 mm appeared unchanged. The fibrotic appearing nodule in the left lower lobe on the January 2020 CT appeared to have resolved. Neck CT showed a large heterogeneous enhancing right supraclavicular lymph node measuring 3.5 x 1.8 cm, increased from 2.6 x 1.9 cm on the February PET/CT. He was able to begin radiation to the involved area in the right neck/upper chest on 05/04/2020. He completed treatment on 06/15/2020 to a total dose of [address] scans of the chest, abdomen, and pelvis on 07/20/2020 showed slight increase in the right paratracheal mass/adenopathy, measuring approximately 4 cm in maximum diameter. There was noted to be increasing tracheal displacement, but that was compared to the January 2020 CT scan. I reviewed the scans with the radiologist, and it appeared that the progression was very minimal. As such, I had recommended that he be just be followed on close observation. Restaging CT scans on 09/01/2020 showed slight interval improvement in the right supraclavicular lymph node measuring 1.9 x 1.5 x 1.2 cm. There was also slight improvement in right paratracheal lymphadenopathy measuring 2.3 x 2.2 x 3.3 cm. There was no evidence of disease progression. His repeat chest CT on 10/13/2020 showed significant progression in the right paratracheal lymphadenopathy. A soft tissue nodule was noted to be extending into the tracheal lumen. Also noted was development of a new lesion in the right lobe of the liver measuring 2.6 x 3.1 cm. Bronchoscopy on 10/14/2020 showed an exophytic mass originating from the posterior tracheal membrane located about 3.5 to 4 cm below the vocal cords. It was noted to occlude approximately 85 to 90% of the lumen. He was transferred urgently to [facility] for admission, and he subsequently underwent a palliative surgical procedure. Repeat CT scans at [facility] on 11/02/2020 showed residual right paratracheal mass measuring 3.3 x 3.0 cm with decreased luminal extension into the trachea. There was unchanged right supraclavicular lymphadenopathy measuring 1.4 x 1.7 cm. There was redemonstration of hepatic metastasis measuring 3.4 x 2.6 cm, with slight interval increase. He then returned here to begin systemic therapy with modified FOLFOX chemotherapy in combination with Herceptin. His other medical illnesses include hypertension, hypertriglyceridemia, type II diabetes, hypothyroidism, androgen deficiency, obstructive sleep apnea, degenerative arthritis, and glaucoma. He also has history of diverticulitis and a history of recurrent episodes of nephrolithiasis. His other surgeries include cataract excision from the left eye, carpal tunnel release on the left, vasectomy, and extracorporeal shockwave lithotripsy. He underwent right total hip arthroplasty on 07/29/2019. He is a non-smoker, but he had chewed tobacco for 35 years, estimated 2 to 3 cans/day. He does not drink alcohol. INTERIM HISTORY: He began cycle 1 of modified FOLFOX with Herceptin on 11/17/2020. He tolerated it pretty well, though he did experience some fatigue and some neuropathy with it. He continued with cycle 2 of modified FOLFOX with Herceptin on 12/01/2020. In the meantime, he been to [facility] for follow-up with his surgeon at [facility]. He was noted to have some regrowth of the tracheal mass. He then returned and underwent re-resection of the tracheal mass on 12/09/2020. He continued with cycle 3 of FOLFOX/Herceptin on 12/15/2020 and with cycle 4 on 12/29/2020. With cycle 3 the oxaliplatin was omitted due to worsening neuropathy symptoms. It was restarted with cycle 4 at a reduced dosage. His cycle 5 on 01/12/2021 was administered with a further dose reduction in the oxaliplatin and with a dose reduction in the 5-FU infusion. He had a follow-up visit at [facility] on 02/02/2021. His restaging CT scans show changes of bronchoscopic tumor debulking with a residual partially necrotic lesion involving the right aspect of the trachea and extending posteriorly. There was stable right supraclavicular lymphadenopathy and there was resolution of the previously noted hepatic segment 7 metastatic lesion. Overall, there was some evidence of response and no evidence of disease progression. With those findings, he was recommended to continue chemotherapy with infusional 5-FU together with Herceptin at a 3-week dosing interval. Due to a previously planned family vacation, his scheduled treatment on 02/08/2021 was limited to just Herceptin. As of 03/01/2021 he restarted infusional 5-FU in combination with Herceptin, and he then continued treatment at 2-week intervals. He is seen for a followup visit. He has been feeling pretty good generally. His energy is somewhat variable, but he is able to do some work. ECOG score is 1. His appetite is still not too good. He does use marijuana to help him eat. He has no fever or night sweats. He has not had sore mouth or throat. He occasionally has a little difficulty swallowing, depending on what he is trying to eat. He has no shortness of breath, cough, or chest pain. He has no GI or complaints. He has no significant joint or bone pain. He does not complain of headache or dizziness. He has only very minimal residual neuropathy. Medications: Bystolic 1 Tablet (of 10 mg) Oral daily, Dronabinol 1 (5 mg) Capsule Oral b.i.d., Fluconazole 1 Tablet (of 100 mg) Oral daily, Gabapentin 1 Capsule (of 300 mg) Oral b.i.d., Glimepiride 1 Tablet (of 4 mg) Oral b.i.d., HumaLOG 200 Units (of 100 Units/mL) Subcutaneous PRN, Lantus 40 Units (of 100 Units/mL) Subcutaneous daily, Levothyroxine Sodium 1 Tablet (of 175 mcg) Oral daily, Nitrofurantoin Macrocrystal 1 Capsule (of 100 mg) Oral daily, oxyCODONE HCl 1 (5 mg) Tablet Oral q 4 hours PRN, Pantoprazole Sodium 1 Tablet (of 40 mg) Tablet, enteric coated Oral daily, Tamsulosin HCl 1 Cartridge (of 0.4 mg) Capsule Oral b.i.d., Timolol Maleate 1 Drop(s) (of 0.5 %) Solution Ophthalmic daily Allergies: Morphine Sulfate Vital Signs: Performed on May 12, 2021 10:25 Height - 75.00 in Weight - 225.8 lbs (LOW) BSA - 2.31 sq.m BMI - 28.22 Temperature - 97.1 F (LOW) Pulse - 52 /min (LOW) Respiration - 18 /min BP - 117/71 mm(hg) O2 Sat - 98 % Pain - 0 Fatigue - 4 Physical Examination: Constitutional - He looks good generally, Eyes - Sclerae nonicteric. Conjunctivae clear, ENMT - No lesions noted in the oral cavity, Hematologic/Lymphatic - There is no cervical, clavicular, or axillary adenopathy noted, Respiratory - Lungs are clear with good air movement bilaterally, Cardiovascular - Heart rhythm is regular. There is no murmur, gallop or rub noted, Abdomen - Soft. Liver and spleen are not enlarged. There is no abdominal mass or ascites noted and there is no inguinal adenopathy, Extremities - No edema, Neurologic - No focal neurologic deficits noted. Lab/Imaging: Test performed on May 12, 2021 08:56 Sodium 141 mmol/L Potassium 3.8 mmol/L Chloride 102 mmol/L CO2 29 mmol/L Anion Gap 13.8 BUN 8 mg/dL Creatinine 0.7 mg/dL Cr Clearance (Est) 179.7800 mL/min eGFR 118.0 mL/min Glucose 152 mg/dL Osmolality - Calculated 293 mOsm/kg Calcium 8.9 mg/dL Protein, Total 6.3 g/dL Albumin 4.0 g/dL Globulin 2.3 g/dL Bilirubin, Total 0.4 mg/dL ALT (SGPT) 18 U/L AST (SGOT) 19 U/L Alkaline Phosphatase 102 IU/L WBC 5.7 10 3/uL RBC 4.58 10 6/uL HGB 14.7 g/dL HCT 45.1 % MCV 98.5 fl MCH 32.1 pg MCHC 32.6 g/dL RDW 15.1 % Platelet Count 131 10 3/cmm MPV 9.9 fL Neutrophils 4.06 10 3/uL Lymphocytes 0.7 10 3/uL Monocytes 0.7 10 3/uL Eosinophils 0.2 10 3/uL Basophils 0.0 10 3/uL Neutrophil % 71.1 % Lymphocyte % 12.5 % Monocyte % 12.3 % Eosinophil % 3.0 % Basophils % 0.7 % NRBC % 0 % Problem List: 1. Well differentiated infiltrating adenocarcinoma involving the lower third of the esophagus, HER-2/quoc positive. He disease was stage IIIB (ypT3, ypN1, M0) at initial diagnosis in June 2018, but with subsequent progression to stage IV (M1), with involvement in the right paratracheal lymph node confirmed by EBUS/FNA biopsy on 02/05/2020. His next generation sequencing study by liquid biopsy showed no actionable mutations. 2. Hypertension. 3. Hyperlipidemia. 4. Type II diabetes. 5. Obstructive sleep apnea. 6. Degenerative arthritis. 7. He has posttraumatic glaucoma of the left eye. 8. He has a history of recurrent episodes of nephrolithiasis. 9. He has a history of diverticulitis. Problems Addressed with this Encounter and Plan: Patient with well differentiated infiltrating adenocarcinoma involving the lower third of the esophagus, HER-2/quoc positive. He disease was stage IIIB (ypT3, ypN1, M0) at initial diagnosis in June 2018. His initial treatment included neoadjuvant chemoradiation utilizing weekly carboplatin/Taxol followed by [place] [facility] esophagectomy on 10/30/2018. He had subsequent progression to stage IV (M1), with involvement in the right paratracheal lymph node confirmed by EBUS/FNA biopsy on 02/05/2020. His staging PET/CT showed uptake in the known involved right paratracheal lymph node and an additional area of uptake in a right cervical level IV territory node measuring 2.6 x 1.6 cm, SUV 4.0. With disease localized to right supraclavicular and right paratracheal lymph nodes, he was interested in pursuing local/regional treatment. His further treatment was complicated by COVID-19 virus infection, from which he had uneventful recovery. His restaging CT scans of the neck and chest on 04/30/2020 did show further progression of the lymphadenopathy, but still with localized involvement. He then began radiation to the right neck/upper chest on 05/04/2020. He completed treatment on 06/15/2020 to a total dose of [address] scans on 09/01/2020 showed no evidence of disease progression. At his follow-up visit on 10/06/2020 he had developed some coughing spells, occasionally with associated hemoptysis. His repeat chest CT on 10/13/2020 showed progression of the right paratracheal mass with apparent extension into the trachea. This was confirmed by bronchoscopy on 10/14/2020, with evidence of exophytic mass originating from the posterior tracheal membrane at the level of about 3.5 to 4 cm below the vocal cords with associated 85 to 90% occlusion of the lumen. Also noted at that time was development of a new metastatic lesion in the liver. He was admitted to [facility] where he underwent a palliative surgical procedure. On 11/18/2019 he began cycle 1 of systemic therapy with modified FOLFOX chemotherapy in combination with Herceptin. He had mild neuropathy lasting 3 days after that treatment. He also had some fatigue, but overall he tolerated it well. He continued with cycle 2 on 12/01/2020. With that treatment he had significantly more toxicity with increased fatigue, more severe neuropathy, and some stomatitis. In the meantime, he had returned to [facility] for re-resection of recurrent tracheal mass. He tolerated the surgery well. He continue with his third cycle of chemotherapy on 12/15/2020, but with omission of the oxaliplatin due to increased neuropathy. The oxaliplatin was restarted at a reduced dosage with cycle 4 on 12/29/2020. His cycle 5 on 01/12/2021 was administered with a further reduction in the oxaliplatin dosage, with omission of the 5-FU bolus, and with a dose reduction in the 5-FU infusion. With those changes, he had just mild neuropathy, but he continued to have severe fatigue. He proceeded with his 6th cycle of treatment on 01/26/2021. He had a follow-up visit at [facility] on 02/02/2021. His restaging CT scans showed a residual partially necrotic lesion involving the right aspect of the trachea along with stable right supraclavicular lymphadenopathy. There was resolution of previously noted metastatic lesion involving hepatic segment 7. With those findings, he was recommended to continue chemotherapy with infusional 5-FU and Herceptin. His schedule treatment on 02/08/2021 was limited to just Herceptin, at his request. He then began treatment with infusional 5-FU in combination with Herceptin on 03/01/2021. During follow-up he has continued to have some fatigue and anorexia, but he has generally tolerated the treatment well and his overall clinical status has improved with the change in his chemotherapy. He will proceed now with cycle 6 of infusional 5-FU in combination with Herceptin. The dosages remain the same. He is scheduled for restaging CT scans and a follow-up visit at [facility] next week. I will wait for their recommendations prior to scheduling any further treatment. Signed By: Jurgen Kearns M.D. <<Signature on File>>
[2021-05-24 12:05] LABS: Cholesterol 147 mg/dL (0-200); Glucose 123 mg/dL (65-115)
[2021-05-24 19:35] LABS: Cholesterol 153 mg/dL (0-200); HDL Cholesterol 30 mg/dL (60-100); Triglycerides 551 mg/dL (0-150)
[2021-05-24 19:59] LABS: LDL Cholesterol Direct 55 mg/dL (0-100)
[2021-06-01 08:52] LABS: Basophils % 0.7 %; Eosinophils # 0.1 10^3/uL (0.0-0.8); Hemoglobin 14.3 g/dL (11.7-16.6); Lymphocytes # 0.8 10^3/uL (0.8-4.8); Lymphocytes % 20.7 %; Mean Corpuscular HGB Conc 31.8 g/dL (30.0-36.0); Mean Corpuscular Hemoglobin 31.6 pg (28.0-34.0); Mean Corpuscular Volume 99.6 fl (80-94); Mean Platelet Volume 9.8 fL (7.4-10.4); Monocytes # 0.8 10^3/uL (0.2-0.9); Monocytes % 19.8 %; Neutrophils # 2.25 10^3/uL (1.8-7.7); Neutrophils % 55.6 %; Nucleated Red Blood Cells % 0 %; Platelet Count 176 10^3/cmm (130-400); Red Blood Count 4.52 10^6/uL (4.1-5.3); Red Cell Distribution Width 15.7 % (12.1-15.1); White Blood Count 4.1 10^3/uL (4.0-10.0)
[2021-06-01 09:21] LABS: Alanine Aminotransferase 18 U/L (0-41); Albumin Level 3.9 g/dL (3.5-5.2); Alkaline Phosphatase 99 IU/L (40-130); Anion Gap 13.3 (5-19); Aspartate Amino Transferase 17 U/L (0-40); Blood Urea Nitrogen 8 mg/dL (6-20); Calcium 9.2 mg/dL (8.5-10.5); Carbon Dioxide 29 mmol/L (22-29); Chloride 100 mmol/L (98-107); Glomerular Filtration Rate 140.9 mL/min (90-130); Glucose 153 mg/dL (65-115); Osmolality Calculated 287 mOsm/kg (285-295); Potassium 4.3 mmol/L (3.5-5.1); Sodium 138 mmol/L (136-145); Total Bilirubin 0.4 mg/dL (0.15-1.2); Total Protein 5.9 g/dL (6.6-8.7)
[2021-06-01] MEDS: acetaminophen 325 mg Tablet 650 MG PO (10:33)
[2021-06-01] MEDS: loratadine 10 mg Tablet PO (10:33)
[2021-06-01] MEDS: palonosetron 0.25 mg/5 mL SDV IVP (10:38)
[2021-06-01] MEDS: sodium chloride 0.9% 250 ML 75 ML IV (10:38)
--- NOTE | 2021-06-01 11:23 | ONC FU_ITS ---
Dr. Kearns Patient Follow-Up Note Patient: Ricky Flores Unit #: [id number]: [id number] Dicatated By: Jurgen Kearns M.D.Date of Visit:Jun 01, 2021 Onc Med Follow-up/Prog Note Chief Complaint: Esophageal cancer. 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 His disease was stage IIIB (ypT3, ypN1, M0) at initial diagnosis in June 2018, but with subsequent progression to stage IV (M1). He had presented with iron deficiency anemia and weight loss. He underwent EGD and colonoscopy on 06/15/2018. The colonoscopy showed 2 small sessile polyps in the mid transverse colon, both of which were removed endoscopically. The EGD showed a circumferential and partially obstructing, large size, malignant appearing mass in the lower third esophagus. The stomach and duodenum appeared unremarkable. Biopsy of the esophageal mass showed well-differentiated infiltrating adenocarcinoma with papillary histologic pattern. On subsequent evaluation, the tumor was confirmed to be MSI stable. It did show overexpression of HER-2/quoc, 3+ by IHC and amplification ratio by FISH of 1.8 with 7.3 HER-2 copies/cell. Staging CT scans of the chest, abdomen, and pelvis on 06/15/2018 showed increased soft tissue thickening suggested at the level of the gastroesophageal junction, estimated at 5 cm in width and 4 cm in depth. There was mild thickening of the wall of the distal esophagus. A superior right paratracheal lymph node measured 1.9 x 2.8 cm. The abdomen showed 2 adjacent perigastric lymph nodes near the greater curvature, located between the stomach and pancreas, measuring 1.7 and 2.2 cm. There was no other intra-abdominal or retroperitoneal adenopathy noted, and there was no evidence of other metastatic disease. Staging PET/CT on 06/23/2018 showed a 3 cm hypermetabolic segment of the distal esophagus with SUV 15.0, consistent with primary malignancy. A 2.2 cm gastrohepatic lymph node had SUV 4.1, consistent with local metastatic disease. There was no evidence for other metastatic involvement. The superior right paratracheal lymph node was noted to be FDG negative, consistent with benign disease. He underwent definitive treatment through the [facility]. His treatment included neoadjuvant chemoradiation utilizing weekly carboplatin/Taxol followed by [facility] Rusty esophagectomy on 10/30/2018. I do not have the complete pathology report available, but the final staging was IIIB (ypT3, ypN1, M0). He was then followed on observation/expectant management. His surveillance CT scans of the chest, abdomen, and pelvis at [facility] on 01/15/2020 showed interval development of an 8 mm pulmonary nodule in the left major fissure and a 1.1 cm left lower lobe medial basal segment nodule, concerning for metastatic disease. A few other smaller nodules measuring 3 mm or less were also seen in the left lower lobe. There was interval enlargement of the right upper paratracheal lymph node measuring 2 cm. He then underwent EBUS with FNA biopsy of the right paratracheal lymph node on 02/05/2020. Pathology showed metastatic adenocarcinoma consistent with esophageal primary. He had medical oncology follow-up with Dr. Kulwant Knight on 02/13/2020. He was recommended to undergo placement of Port-A-Cath venous access device and to begin a course of chemotherapy with modified FOLFOX. A [employer] AGN[employer] next generation sequencing study also was requested, biut there was insufficient material available to complete the study. A repeat PET/CT on 02/22/2020 showed interval development of 2 malignant lymph nodes, the dominant lesion in the right paratracheal area measuring 2.9 cm with SUV 6.8. The second was a lesion in the right cervical level IV territory measuring 2.6 x 1.6 cm, SUV 4.0. There were no other sites of abnormal FDG uptake on that study. With insufficient tissue sample available for any additional studies, I had requested a [employer] One next generation sequencing study by liquid biopsy. 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 There were no actionable mutations reported. I had been seeing him for a follow-up visit on 03/27/2020. With his disease apparently localized to the right paratracheal and lower right supraclavicular nodes, he was interested in pursuing local/regional treatment, and he then had radiation oncology consultation with Dr. Fidel Coronado. His further management was complicated by development of COVID-19 virus infection, confirmed on 04/13/2020. Restaging chest CT on 04/30/2020 showed masslike right paratracheal lymphadenopathy measuring 3.8 x 2.7 cm with mild mass-effect on the thoracic trachea. It had increased from 2.7 x 2.5 cm on the February PET/CT. A prominent left hilar lymph node measuring 12 mm appeared unchanged. The fibrotic appearing nodule in the left lower lobe on the January 2020 CT appeared to have resolved. Neck CT showed a large heterogeneous enhancing right supraclavicular lymph node measuring 3.5 x 1.8 cm, increased from 2.6 x 1.9 cm on the February PET/CT. He was able to begin radiation to the involved area in the right neck/upper chest on 05/04/2020. He completed treatment on 06/15/2020 to a total dose of [address] scans of the chest, abdomen, and pelvis on 07/20/2020 showed slight increase in the right paratracheal mass/adenopathy, measuring approximately 4 cm in maximum diameter. There was noted to be increasing tracheal displacement, but that was compared to the January 2020 CT scan. I reviewed the scans with the radiologist, and it appeared that the progression was very minimal. As such, I had recommended that he be just be followed on close observation. Restaging CT scans on 09/01/2020 showed slight interval improvement in the right supraclavicular lymph node measuring 1.9 x 1.5 x 1.2 cm. There was also slight improvement in right paratracheal lymphadenopathy measuring 2.3 x 2.2 x 3.3 cm. There was no evidence of disease progression. His repeat chest CT on 10/13/2020 showed significant progression in the right paratracheal lymphadenopathy. A soft tissue nodule was noted to be extending into the tracheal lumen. Also noted was development of a new lesion in the right lobe of the liver measuring 2.6 x 3.1 cm. Bronchoscopy on 10/14/2020 showed an exophytic mass originating from the posterior tracheal membrane located about 3.5 to 4 cm below the vocal cords. It was noted to occlude approximately 85 to 90% of the lumen. He was transferred urgently to [facility] for admission, and he subsequently underwent a palliative surgical procedure. Repeat CT scans at [facility] on 11/02/2020 showed residual right paratracheal mass measuring 3.3 x 3.0 cm with decreased luminal extension into the trachea. There was unchanged right supraclavicular lymphadenopathy measuring 1.4 x 1.7 cm. There was redemonstration of hepatic metastasis measuring 3.4 x 2.6 cm, with slight interval increase. He then returned here to begin systemic therapy with modified FOLFOX chemotherapy in combination with Herceptin. His other medical illnesses include hypertension, hypertriglyceridemia, type II diabetes, hypothyroidism, androgen deficiency, obstructive sleep apnea, degenerative arthritis, and glaucoma. He also has history of diverticulitis and a history of recurrent episodes of nephrolithiasis. His other surgeries include cataract excision from the left eye, carpal tunnel release on the left, vasectomy, and extracorporeal shockwave lithotripsy. He underwent right total hip arthroplasty on 07/29/2019. He is a non-smoker, but he had chewed tobacco for 35 years, estimated 2 to 3 cans/day. He does not drink alcohol. INTERIM HISTORY: He began cycle 1 of modified FOLFOX with Herceptin on 11/17/2020. He tolerated it pretty well, though he did experience some fatigue and some neuropathy with it. He continued with cycle 2 of modified FOLFOX with Herceptin on 12/01/2020. In the meantime, he been to [facility] for follow-up with his surgeon at [facility]. He was noted to have some regrowth of the tracheal mass. He then returned and underwent re-resection of the tracheal mass on 12/09/2020. He continued with cycle 3 of FOLFOX/Herceptin on 12/15/2020 and with cycle 4 on 12/29/2020. With cycle 3 the oxaliplatin was omitted due to worsening neuropathy symptoms. It was restarted with cycle 4 at a reduced dosage. His cycle 5 on 01/12/2021 was administered with a further dose reduction in the oxaliplatin and with a dose reduction in the 5-FU infusion. He had a follow-up visit at [facility] on 02/02/2021. His restaging CT scans show changes of bronchoscopic tumor debulking with a residual partially necrotic lesion involving the right aspect of the trachea and extending posteriorly. There was stable right supraclavicular lymphadenopathy and there was resolution of the previously noted hepatic segment 7 metastatic lesion. Overall, there was some evidence of response and no evidence of disease progression. With those findings, he was recommended to continue chemotherapy with infusional 5-FU together with Herceptin at a 3-week dosing interval. Due to a previously planned family vacation, his scheduled treatment on 02/08/2021 was limited to just Herceptin. As of 03/01/2021 he restarted infusional 5-FU in combination with Herceptin, and he then continued treatment at 2-week intervals. His repeat chest CT at [facility] on 05/18/2021 showed slight further decrease in the size of the right paratracheal and right supraclavicular lymphadenopathy. Subcarinal lymphadenopathy with punctate calcifications also appeared stable and felt to possibly represent a granulomatous process. There was no evidence of disease progression. He was recommended to continue his current chemotherapy with Herceptin/infusional 5-FU at a 3-week dosing interval. He is seen for a followup visit. He has been feeling good generally. He has had an extra week off since his last treatment, and with that he has had some improvement in his energy/activity tolerance. He still has some fatigue. ECOG score is 1. His appetite is the same and not particularly good, but he does eat. He does not have fever or night sweats. He has had no mouth sores. He has no shortness of breath, cough, or chest pain. He has no GI or complaints. He has no significant joint or bone pain. He does not complain of headache or dizziness. He still has some mild neuropathy symptoms. They do tend to fluctuate. Medications: Bystolic 1 Tablet (of 10 mg) Oral daily, Dronabinol 1 (5 mg) Capsule Oral b.i.d., Fluconazole 1 Tablet (of 100 mg) Oral daily, Gabapentin 1 Capsule (of 300 mg) Oral b.i.d., Glimepiride 1 Tablet (of 4 mg) Oral b.i.d., HumaLOG 200 Units (of 100 Units/mL) Subcutaneous PRN, Lantus 40 Units (of 100 Units/mL) Subcutaneous daily, Levothyroxine Sodium 1 Tablet (of 175 mcg) Oral daily, Nitrofurantoin Macrocrystal 1 Capsule (of 100 mg) Oral daily, oxyCODONE HCl 1 (5 mg) Tablet Oral q 4 hours PRN, Pantoprazole Sodium 1 Tablet (of 40 mg) Tablet, enteric coated Oral daily, Tamsulosin HCl 1 Cartridge (of 0.4 mg) Capsule Oral b.i.d., Timolol Maleate 1 Drop(s) (of 0.5 %) Solution Ophthalmic daily Allergies: Morphine Sulfate Vital Signs: Performed on Jun 01, 2021 09:49 Height - 75.00 in Weight - 228.8 lbs (HIGH) BSA - 2.32 sq.m BMI - 28.60 Temperature - 97.3 F (LOW) Pulse - 54 /min (LOW) Respiration - 18 /min BP - 132/81 mm(hg) O2 Sat - 98 % Pain - 0 Fatigue - 5 Physical Examination: Constitutional - He looks good generally, Eyes - Sclerae nonicteric. Conjunctivae clear, ENMT - No lesions noted in the oral cavity, Hematologic/Lymphatic - There is no cervical, clavicular, or axillary adenopathy noted, Respiratory - Lungs are clear with good air movement bilaterally, Cardiovascular - Heart rhythm is regular. There is no murmur, gallop or rub noted, Abdomen - Soft. Liver and spleen are not enlarged. There is no abdominal mass or ascites noted and there is no inguinal adenopathy, Extremities - No edema, Neurologic - No focal neurologic deficits noted. Lab/Imaging: Test performed on Jun 01, 2021 08:40 Sodium 138 mmol/L Potassium 4.3 mmol/L Chloride 100 mmol/L CO2 29 mmol/L Anion Gap 13.3 BUN 8 mg/dL Creatinine 0.6 mg/dL Cr Clearance (Est) 209.01 mL/min eGFR 140.9 mL/min Glucose 153 mg/dL Osmolality - Calculated 287 mOsm/kg Calcium 9.2 mg/dL Protein, Total 5.9 g/dL Albumin 3.9 g/dL Globulin 2.0 g/dL Bilirubin, Total 0.4 mg/dL ALT (SGPT) 18 U/L AST (SGOT) 17 U/L Alkaline Phosphatase 99 IU/L WBC 4.1 10 3/uL RBC 4.52 10 6/uL HGB 14.3 g/dL HCT 45.0 % MCV 99.6 fl MCH 31.6 pg MCHC 31.8 g/dL RDW 15.7 % Platelet Count 176 10 3/cmm MPV 9.8 fL Neutrophils 2.25 10 3/uL Lymphocytes 0.8 10 3/uL Monocytes 0.8 10 3/uL Eosinophils 0.1 10 3/uL Basophils 0.0 10 3/uL Neutrophil % 55.6 % Lymphocyte % 20.7 % Monocyte % 19.8 % Eosinophil % 3.0 % Basophils % 0.7 % NRBC % 0 % Problem List: 1. Well differentiated infiltrating adenocarcinoma involving the lower third of the esophagus, HER-2/quoc positive. He disease was stage IIIB (ypT3, ypN1, M0) at initial diagnosis in June 2018, but with subsequent progression to stage IV (M1), with involvement in the right paratracheal lymph node confirmed by EBUS/FNA biopsy on 02/05/2020. His next generation sequencing study by liquid biopsy showed no actionable mutations. 2. Hypertension. 3. Hyperlipidemia. 4. Type II diabetes. 5. Obstructive sleep apnea. 6. Degenerative arthritis. 7. He has posttraumatic glaucoma of the left eye. 8. He has a history of recurrent episodes of nephrolithiasis. 9. He has a history of diverticulitis. Problems Addressed with this Encounter and Plan: Patient with well differentiated infiltrating adenocarcinoma involving the lower third of the esophagus, HER-2/quoc positive. He disease was stage IIIB (ypT3, ypN1, M0) at initial diagnosis in June 2018. His initial treatment included neoadjuvant chemoradiation utilizing weekly carboplatin/Taxol followed by [facility] Rusty esophagectomy on 10/30/2018. He had subsequent progression to stage IV (M1), with involvement in the right paratracheal lymph node confirmed by EBUS/FNA biopsy on 02/05/2020. His staging PET/CT showed uptake in the known involved right paratracheal lymph node and an additional area of uptake in a right cervical level IV territory node measuring 2.6 x 1.6 cm, SUV 4.0. With disease localized to right supraclavicular and right paratracheal lymph nodes, he was interested in pursuing local/regional treatment. His further treatment was complicated by COVID-19 virus infection, from which he had uneventful recovery. His restaging CT scans of the neck and chest on 04/30/2020 did show further progression of the lymphadenopathy, but still with localized involvement. He then began radiation to the right neck/upper chest on 05/04/2020. He completed treatment on 06/15/2020 to a total dose of [address] scans on 09/01/2020 showed no evidence of disease progression. At his follow-up visit on 10/06/2020 he had developed some coughing spells, occasionally with associated hemoptysis. His repeat chest CT on 10/13/2020 showed progression of the right paratracheal mass with apparent extension into the trachea. This was confirmed by bronchoscopy on 10/14/2020, with evidence of exophytic mass originating from the posterior tracheal membrane at the level of about 3.5 to 4 cm below the vocal cords with associated 85 to 90% occlusion of the lumen. Also noted at that time was development of a new metastatic lesion in the liver. He was admitted to [facility] where he underwent a palliative surgical procedure. On 11/18/2019 he began cycle 1 of systemic therapy with modified FOLFOX chemotherapy in combination with Herceptin. He had mild neuropathy lasting 3 days after that treatment. He also had some fatigue, but overall he tolerated it well. He continued with cycle 2 on 12/01/2020. With that treatment he had significantly more toxicity with increased fatigue, more severe neuropathy, and some stomatitis. In the meantime, he had returned to [facility] for re-resection of recurrent tracheal mass. He tolerated the surgery well. He continue with his third cycle of chemotherapy on 12/15/2020, but with omission of the oxaliplatin due to increased neuropathy. The oxaliplatin was restarted at a reduced dosage with cycle 4 on 12/29/2020. His cycle 5 on 01/12/2021 was administered with a further reduction in the oxaliplatin dosage, with omission of the 5-FU bolus, and with a dose reduction in the 5-FU infusion. With those changes, he had just mild neuropathy, but he continued to have severe fatigue. He proceeded with his 6th cycle of treatment on 01/26/2021. He had a follow-up visit at [facility] on 02/02/2021. His restaging CT scans showed a residual partially necrotic lesion involving the right aspect of the trachea along with stable right supraclavicular lymphadenopathy. There was resolution of previously noted metastatic lesion involving hepatic segment 7. With those findings, he was recommended to continue chemotherapy with infusional 5-FU and Herceptin. His schedule treatment on 02/08/2021 was limited to just Herceptin, at his request. He then began treatment with infusional 5-FU in combination with Herceptin on 03/01/2021. During follow-up he has continued to have some fatigue and anorexia, but he had generally tolerated the treatment well and his overall clinical status improved with the change in his chemotherapy. At his follow-up visit at [facility] on 05/18/2021 there was a slight further decrease in the right paratracheal and right supraclavicular lymphadenopathy, and he was recommended to continue treatment with Herceptin and infusional 5-FU at a 3-week dosing interval. At this point he appears to be doing well clinically. He will continue treatment today with Herceptin at 6 mg/kg by IV infusion followed by infusional 5-FU at the same dosage. He returns for follow-up in 3 weeks. Signed By: Jurgen Kearns M.D. <<Signature on File>>
== END 2021-06-03 23:59 | disposition home or self-care (01) ==
LOC: ONCMED 06:25
PROVIDERS: PCP Internal Medicine; Visit Provider Internal Medicine Medical Oncology
DX: Z51.11 Encounter for antineoplastic chemotherapy (principal); C15.5 Malignant neoplasm of lower third of esophagus; C77.8 Secondary and unspecified malignant neoplasm of lymph nodes of multiple regions; I10 Essential (primary) hypertension; E78.5 Hyperlipidemia, unspecified; E11.9 Type 2 diabetes mellitus without complications; G47.33 Obstructive sleep apnea (adult) (pediatric); M19.90 Unspecified osteoarthritis, unspecified site; H40.89 Other specified glaucoma; Z87.442 Personal history of urinary calculi; Z87.19 Personal history of other diseases of the digestive system; Z79.899 Other long term (current) drug therapy
CPT/HCPCS: 36591; 80053; 80061; 82465; 82947; 83721; 85025; 96367; 96411; 96413; 96416; 96523; 99215; J1100; J2469; J7050; J9190; J9355

== ENCOUNTER 2021-06-24 06:22 | Outpatient (RCR) | payer OTHER, BC, SELFPAY ==
[2021-06-22 08:45] LABS: Basophils % 1.1 %; Eosinophils # 0.2 10^3/uL (0.0-0.8); Eosinophils % 4.9 %; Hematocrit 42.2 % (42.0-52.0); Hemoglobin 14.2 g/dL (11.7-16.6); Lymphocytes # 0.8 10^3/uL (0.8-4.8); Lymphocytes % 22.1 %; Mean Corpuscular HGB Conc 33.6 g/dL (30.0-36.0); Mean Corpuscular Hemoglobin 33.1 pg (28.0-34.0); Mean Corpuscular Volume 98.4 fl (80-94); Mean Platelet Volume 9.7 fL (7.4-10.4); Monocytes # 0.8 10^3/uL (0.2-0.9); Monocytes % 22.9 %; Neutrophils # 1.69 10^3/uL (1.8-7.7); Neutrophils % 48.4 %; Nucleated Red Blood Cells % 0 %; Platelet Count 181 10^3/cmm (130-400); Red Blood Count 4.29 10^6/uL (4.1-5.3); Red Cell Distribution Width 16.4 % (12.1-15.1); White Blood Count 3.5 10^3/uL (4.0-10.0)
[2021-06-22 09:19] LABS: Alanine Aminotransferase 20 U/L (0-41); Albumin Level 3.8 g/dL (3.5-5.2); Alkaline Phosphatase 93 IU/L (40-130); Anion Gap 13.7 (5-19); Aspartate Amino Transferase 17 U/L (0-40); Blood Urea Nitrogen 7 mg/dL (6-20); Calcium 8.7 mg/dL (8.5-10.5); Carbon Dioxide 29 mmol/L (22-29); Chloride 101 mmol/L (98-107); Glomerular Filtration Rate 173.9 mL/min (90-130); Glucose 192 mg/dL (65-115); Osmolality Calculated 293 mOsm/kg (285-295); Potassium 3.7 mmol/L (3.5-5.1); Sodium 140 mmol/L (136-145); Total Bilirubin 0.4 mg/dL (0.15-1.2); Total Protein 5.8 g/dL (6.6-8.7)
[2021-06-22] MEDS: loratadine 10 mg Tablet PO (10:05)
[2021-06-22] MEDS: acetaminophen 325 mg Tablet 650 MG PO (10:05)
[2021-06-22] MEDS: sodium chloride 0.9% 250 ML 75 ML IV (10:05)
[2021-06-22] MEDS: palonosetron 0.25 mg/5 mL SDV IV (10:12)
--- NOTE | 2021-06-23 07:08 | ONC FU_ITS ---
Dr. Kearns Patient Follow-Up Note Patient: Ricky Flores Unit #: [id number]: [id number] Dicatated By: Jurgen Kearns M.D.Date of Visit:Jun 22, 2021 Onc Med Follow-up/Prog Note Chief Complaint: Esophageal cancer. 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 His disease was stage IIIB (ypT3, ypN1, M0) at initial diagnosis in June 2018, but with subsequent progression to stage IV (M1). He had presented with iron deficiency anemia and weight loss. He underwent EGD and colonoscopy on 06/15/2018. The colonoscopy showed 2 small sessile polyps in the mid transverse colon, both of which were removed endoscopically. The EGD showed a circumferential and partially obstructing, large size, malignant appearing mass in the lower third esophagus. The stomach and duodenum appeared unremarkable. Biopsy of the esophageal mass showed well-differentiated infiltrating adenocarcinoma with papillary histologic pattern. On subsequent evaluation, the tumor was confirmed to be MSI stable. It did show overexpression of HER-2/quoc, 3+ by IHC and amplification ratio by FISH of 1.8 with 7.3 HER-2 copies/cell. Staging CT scans of the chest, abdomen, and pelvis on 06/15/2018 showed increased soft tissue thickening suggested at the level of the gastroesophageal junction, estimated at 5 cm in width and 4 cm in depth. There was mild thickening of the wall of the distal esophagus. A superior right paratracheal lymph node measured 1.9 x 2.8 cm. The abdomen showed 2 adjacent perigastric lymph nodes near the greater curvature, located between the stomach and pancreas, measuring 1.7 and 2.2 cm. There was no other intra-abdominal or retroperitoneal adenopathy noted, and there was no evidence of other metastatic disease. Staging PET/CT on 06/23/2018 showed a 3 cm hypermetabolic segment of the distal esophagus with SUV 15.0, consistent with primary malignancy. A 2.2 cm gastrohepatic lymph node had SUV 4.1, consistent with local metastatic disease. There was no evidence for other metastatic involvement. The superior right paratracheal lymph node was noted to be FDG negative, consistent with benign disease. He underwent definitive treatment through the [facility]. His treatment included neoadjuvant chemoradiation utilizing weekly carboplatin/Taxol followed by [place] [facility] esophagectomy on 10/30/2018. I do not have the complete pathology report available, but the final staging was IIIB (ypT3, ypN1, M0). He was then followed on observation/expectant management. His surveillance CT scans of the chest, abdomen, and pelvis at [facility] on 01/15/2020 showed interval development of an 8 mm pulmonary nodule in the left major fissure and a 1.1 cm left lower lobe medial basal segment nodule, concerning for metastatic disease. A few other smaller nodules measuring 3 mm or less were also seen in the left lower lobe. There was interval enlargement of the right upper paratracheal lymph node measuring 2 cm. He then underwent EBUS with FNA biopsy of the right paratracheal lymph node on 02/05/2020. Pathology showed metastatic adenocarcinoma consistent with esophageal primary. He had medical oncology follow-up with Dr. Kulwant Knight on 02/13/2020. He was recommended to undergo placement of Port-A-Cath venous access device and to begin a course of chemotherapy with modified FOLFOX. A [employer] next generation sequencing study also was requested, biut there was insufficient material available to complete the study. A repeat PET/CT on 02/22/2020 showed interval development of 2 malignant lymph nodes, the dominant lesion in the right paratracheal area measuring 2.9 cm with SUV 6.8. The second was a lesion in the right cervical level IV territory measuring 2.6 x 1.6 cm, SUV 4.0. There were no other sites of abnormal FDG uptake on that study. With insufficient tissue sample available for any additional studies, I had requested a [employer] next generation sequencing study by liquid biopsy. 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 There were no actionable mutations reported. I had been seeing him for a follow-up visit on 03/27/2020. With his disease apparently localized to the right paratracheal and lower right supraclavicular nodes, he was interested in pursuing local/regional treatment, and he then had radiation oncology consultation with Dr. Fidel Coronado. His further management was complicated by development of COVID-19 virus infection, confirmed on 04/13/2020. Restaging chest CT on 04/30/2020 showed masslike right paratracheal lymphadenopathy measuring 3.8 x 2.7 cm with mild mass-effect on the thoracic trachea. It had increased from 2.7 x 2.5 cm on the February PET/CT. A prominent left hilar lymph node measuring 12 mm appeared unchanged. The fibrotic appearing nodule in the left lower lobe on the January 2020 CT appeared to have resolved. Neck CT showed a large heterogeneous enhancing right supraclavicular lymph node measuring 3.5 x 1.8 cm, increased from 2.6 x 1.9 cm on the February PET/CT. He was able to begin radiation to the involved area in the right neck/upper chest on 05/04/2020. He completed treatment on 06/15/2020 to a total dose of [address] scans of the chest, abdomen, and pelvis on 07/20/2020 showed slight increase in the right paratracheal mass/adenopathy, measuring approximately 4 cm in maximum diameter. There was noted to be increasing tracheal displacement, but that was compared to the January 2020 CT scan. I reviewed the scans with the radiologist, and it appeared that the progression was very minimal. As such, I had recommended that he be just be followed on close observation. Restaging CT scans on 09/01/2020 showed slight interval improvement in the right supraclavicular lymph node measuring 1.9 x 1.5 x 1.2 cm. There was also slight improvement in right paratracheal lymphadenopathy measuring 2.3 x 2.2 x 3.3 cm. There was no evidence of disease progression. His repeat chest CT on 10/13/2020 showed significant progression in the right paratracheal lymphadenopathy. A soft tissue nodule was noted to be extending into the tracheal lumen. Also noted was development of a new lesion in the right lobe of the liver measuring 2.6 x 3.1 cm. Bronchoscopy on 10/14/2020 showed an exophytic mass originating from the posterior tracheal membrane located about 3.5 to 4 cm below the vocal cords. It was noted to occlude approximately 85 to 90% of the lumen. He was transferred urgently to [facility] for admission, and he subsequently underwent a palliative surgical procedure. Repeat CT scans at [facility] on 11/02/2020 showed residual right paratracheal mass measuring 3.3 x 3.0 cm with decreased luminal extension into the trachea. There was unchanged right supraclavicular lymphadenopathy measuring 1.4 x 1.7 cm. There was redemonstration of hepatic metastasis measuring 3.4 x 2.6 cm, with slight interval increase. He then returned here to begin systemic therapy with modified FOLFOX chemotherapy in combination with Herceptin. His other medical illnesses include hypertension, hypertriglyceridemia, type II diabetes, hypothyroidism, androgen deficiency, obstructive sleep apnea, degenerative arthritis, and glaucoma. He also has history of diverticulitis and a history of recurrent episodes of nephrolithiasis. His other surgeries include cataract excision from the left eye, carpal tunnel release on the left, vasectomy, and extracorporeal shockwave lithotripsy. He underwent right total hip arthroplasty on 07/29/2019. He is a non-smoker, but he had chewed tobacco for 35 years, estimated 2 to 3 cans/day. He does not drink alcohol. INTERIM HISTORY: He began cycle 1 of modified FOLFOX with Herceptin on 11/17/2020. He tolerated it pretty well, though he did experience some fatigue and some neuropathy with it. He continued with cycle 2 of modified FOLFOX with Herceptin on 12/01/2020. In the meantime, he been to [facility] for follow-up with his surgeon at [facility]. He was noted to have some regrowth of the tracheal mass. He then returned and underwent re-resection of the tracheal mass on 12/09/2020. He continued with cycle 3 of FOLFOX/Herceptin on 12/15/2020 and with cycle 4 on 12/29/2020. With cycle 3 the oxaliplatin was omitted due to worsening neuropathy symptoms. It was restarted with cycle 4 at a reduced dosage. His cycle 5 on 01/12/2021 was administered with a further dose reduction in the oxaliplatin and with a dose reduction in the 5-FU infusion. He had a follow-up visit at [facility] on 02/02/2021. His restaging CT scans show changes of bronchoscopic tumor debulking with a residual partially necrotic lesion involving the right aspect of the trachea and extending posteriorly. There was stable right supraclavicular lymphadenopathy and there was resolution of the previously noted hepatic segment 7 metastatic lesion. Overall, there was some evidence of response and no evidence of disease progression. With those findings, he was recommended to continue chemotherapy with infusional 5-FU together with Herceptin at a 3-week dosing interval. Due to a previously planned family vacation, his scheduled treatment on 02/08/2021 was limited to just Herceptin. As of 03/01/2021 he restarted infusional 5-FU in combination with Herceptin, and he then continued treatment at 2-week intervals. His repeat chest CT at [facility] on 05/18/2021 showed slight further decrease in the size of the right paratracheal and right supraclavicular lymphadenopathy. Subcarinal lymphadenopathy with punctate calcifications also appeared stable and felt to possibly represent a granulomatous process. There was no evidence of disease progression. He was recommended to continue treatment with Herceptin/infusional 5-FU at a 3-week dosing interval. He is seen for a followup visit. He has been feeling good generally. He has had some improvement in his energy/activity tolerance with his treatment changed to a 3-week dosing interval. He has pretty much normal activity now. ECOG score is 0. His appetite is still not very good. He does not have fever or night sweats. He does have sinus drainage. With his last treatment the roof of his mouth was pretty sore for about 5 days. He does not complain of shortness of breath or cough, and he has not been having any chest pain. He still has nausea occasionally. He has no other GI or complaints. He has no significant joint or bone pain. He does not complain of headache or dizziness. He does have some residual neuropathy. Medications: Bystolic 1 Tablet (of 10 mg) Oral daily, Dronabinol 1 (5 mg) Capsule Oral b.i.d., Fluconazole 1 Tablet (of 100 mg) Oral daily, Gabapentin 1 Capsule (of 300 mg) Oral b.i.d., Glimepiride 1 Tablet (of 4 mg) Oral b.i.d., HumaLOG 200 Units (of 100 Units/mL) Subcutaneous PRN, Lantus 40 Units (of 100 Units/mL) Subcutaneous daily, Levothyroxine Sodium 1 Tablet (of 175 mcg) Oral daily, Nitrofurantoin Macrocrystal 1 Capsule (of 100 mg) Oral daily, oxyCODONE HCl 1 (5 mg) Tablet Oral q 4 hours PRN, Pantoprazole Sodium 1 Tablet (of 40 mg) Tablet, enteric coated Oral daily, Tamsulosin HCl 1 Cartridge (of 0.4 mg) Capsule Oral b.i.d., Timolol Maleate 1 Drop(s) (of 0.5 %) Solution Ophthalmic daily Allergies: Morphine Sulfate Vital Signs: Performed on Jun 22, 2021 09:20 Height - 75.00 in Weight - 233.2 lbs (HIGH) BSA - 2.34 sq.m BMI - 29.15 Temperature - 97.7 F (LOW) Pulse - 66 /min Respiration - 17 /min BP - 162/84 mm(hg) (HIGH) O2 Sat - 95 % (LOW) Pain - 0 Fatigue - 6 Physical Examination: Constitutional - He looks good generally, Eyes - Sclerae nonicteric. Conjunctivae clear, ENMT - No lesions noted in the oral cavity, Hematologic/Lymphatic - There is no cervical, clavicular, or axillary adenopathy noted, Respiratory - Lungs are clear with good air movement bilaterally, Cardiovascular - Heart rhythm is regular. There is no murmur, gallop or rub noted, Abdomen - Soft. Liver and spleen are not enlarged. There is no abdominal mass or ascites noted and there is no inguinal adenopathy, Extremities - No edema, Neurologic - No focal neurologic deficits noted. Lab/Imaging: Test performed on Jun 22, 2021 08:12 Sodium 140 mmol/L Potassium 3.7 mmol/L Chloride 101 mmol/L CO2 29 mmol/L Anion Gap 13.7 BUN 7 mg/dL Creatinine 0.5 mg/dL Cr Clearance (Est) 250.8100 mL/min eGFR 173.9 mL/min Glucose 192 mg/dL Osmolality - Calculated 293 mOsm/kg Calcium 8.7 mg/dL Protein, Total 5.8 g/dL Albumin 3.8 g/dL Globulin 2.0 g/dL Bilirubin, Total 0.4 mg/dL ALT (SGPT) 20 U/L AST (SGOT) 17 U/L Alkaline Phosphatase 93 IU/L WBC 3.5 10 3/uL RBC 4.29 10 6/uL HGB 14.2 g/dL HCT 42.2 % MCV 98.4 fl MCH 33.1 pg MCHC 33.6 g/dL RDW 16.4 % Platelet Count 181 10 3/cmm MPV 9.7 fL Neutrophils 1.69 10 3/uL Lymphocytes 0.8 10 3/uL Monocytes 0.8 10 3/uL Eosinophils 0.2 10 3/uL Basophils 0.0 10 3/uL Neutrophil % 48.4 % Lymphocyte % 22.1 % Monocyte % 22.9 % Eosinophil % 4.9 % Basophils % 1.1 % NRBC % 0 % Problem List: 1. Well differentiated infiltrating adenocarcinoma involving the lower third of the esophagus, HER-2/quoc positive. He disease was stage IIIB (ypT3, ypN1, M0) at initial diagnosis in June 2018, but with subsequent progression to stage IV (M1), with involvement in the right paratracheal lymph node confirmed by EBUS/FNA biopsy on 02/05/2020. His next generation sequencing study by liquid biopsy showed no actionable mutations. 2. Hypertension. 3. Hyperlipidemia. 4. Type II diabetes. 5. Obstructive sleep apnea. 6. Degenerative arthritis. 7. He has posttraumatic glaucoma of the left eye. 8. He has a history of recurrent episodes of nephrolithiasis. 9. He has a history of diverticulitis. Problems Addressed with this Encounter and Plan: Patient with well differentiated infiltrating adenocarcinoma involving the lower third of the esophagus, HER-2/quoc positive. He disease was stage IIIB (ypT3, ypN1, M0) at initial diagnosis in June 2018. His initial treatment included neoadjuvant chemoradiation utilizing weekly carboplatin/Taxol followed by [place] [facility] esophagectomy on 10/30/2018. He had subsequent progression to stage IV (M1), with involvement in the right paratracheal lymph node confirmed by EBUS/FNA biopsy on 02/05/2020. His staging PET/CT showed uptake in the known involved right paratracheal lymph node and an additional area of uptake in a right cervical level IV territory node measuring 2.6 x 1.6 cm, SUV 4.0. With disease localized to right supraclavicular and right paratracheal lymph nodes, he was interested in pursuing local/regional treatment. His further treatment was complicated by COVID-19 virus infection, from which he had uneventful recovery. His restaging CT scans of the neck and chest on 04/30/2020 did show further progression of the lymphadenopathy, but still with localized involvement. He then began radiation to the right neck/upper chest on 05/04/2020. He completed treatment on 06/15/2020 to a total dose of [address] scans on 09/01/2020 showed no evidence of disease progression. At his follow-up visit on 10/06/2020 he had developed some coughing spells, occasionally with associated hemoptysis. His repeat chest CT on 10/13/2020 showed progression of the right paratracheal mass with apparent extension into the trachea. This was confirmed by bronchoscopy on 10/14/2020, with evidence of exophytic mass originating from the posterior tracheal membrane at the level of about 3.5 to 4 cm below the vocal cords with associated 85 to 90% occlusion of the lumen. Also noted at that time was development of a new metastatic lesion in the liver. He was admitted to [facility] where he underwent a palliative surgical procedure. On 11/18/2019 he began cycle 1 of systemic therapy with modified FOLFOX chemotherapy in combination with Herceptin. He had mild neuropathy lasting 3 days after that treatment. He also had some fatigue, but overall he tolerated it well. He continued with cycle 2 on 12/01/2020. With that treatment he had significantly more toxicity with increased fatigue, more severe neuropathy, and some stomatitis. In the meantime, he had returned to [facility] for re-resection of recurrent tracheal mass. He tolerated the surgery well. He continue with his third cycle of chemotherapy on 12/15/2020, but with omission of the oxaliplatin due to increased neuropathy. The oxaliplatin was restarted at a reduced dosage with cycle 4 on 12/29/2020. His cycle 5 on 01/12/2021 was administered with a further reduction in the oxaliplatin dosage, with omission of the 5-FU bolus, and with a dose reduction in the 5-FU infusion. With those changes, he had just mild neuropathy, but he continued to have severe fatigue. He proceeded with his 6th cycle of treatment on 01/26/2021. He had a follow-up visit at [facility] on 02/02/2021. His restaging CT scans showed a residual partially necrotic lesion involving the right aspect of the trachea along with stable right supraclavicular lymphadenopathy. There was resolution of previously noted metastatic lesion involving hepatic segment 7. With those findings, he was recommended to continue chemotherapy with infusional 5-FU and Herceptin. His schedule treatment on 02/08/2021 was limited to just Herceptin, at his request. He then began treatment with infusional 5-FU in combination with Herceptin on 03/01/2021. During follow-up he has continued to have some fatigue and anorexia, but he had generally tolerated the treatment well and his overall clinical status improved with the change in his chemotherapy. At his follow-up visit at [facility] on 05/18/2021 there was a slight further decrease in the right paratracheal and right supraclavicular lymphadenopathy, and he was recommended to continue treatment with Herceptin and infusional 5-FU at a 3-week dosing interval. He has been feeling somewhat better generally with his chemotherapy administered at a 3-week dosing interval. However, he is now mildly neutropenic and he also had increased mucositis symptoms with his last cycle. As such, he will continue with cycle 14 of Herceptin/infusional 5-FU, but I will now admit the 5-FU bolus and and I will decrease the dose of the infusion by 20%. I will see him again in 3 weeks. Signed By: Jurgen Kearns M.D. <<Signature on File>>
== END 2021-07-04 23:59 | disposition home or self-care (01) ==
LOC: ONCMED 06:22
PROVIDERS: PCP Internal Medicine; Visit Provider Internal Medicine Medical Oncology
DX: Z51.11 Encounter for antineoplastic chemotherapy (principal); C15.5 Malignant neoplasm of lower third of esophagus; C77.0 Secondary and unspecified malignant neoplasm of lymph nodes of head, face and neck; I10 Essential (primary) hypertension; E78.5 Hyperlipidemia, unspecified; E11.9 Type 2 diabetes mellitus without complications; G47.33 Obstructive sleep apnea (adult) (pediatric); M19.90 Unspecified osteoarthritis, unspecified site; H40.32X0 Glaucoma secondary to eye trauma, left eye, stage unspecified; Z87.442 Personal history of urinary calculi; Z87.19 Personal history of other diseases of the digestive system; Z79.899 Other long term (current) drug therapy
CPT/HCPCS: 80053; 85025; 96367; 96375; 96413; 96416; 96523; 99215; J1100; J2469; J7050; J9190; J9355

== ENCOUNTER 2021-08-03 06:29 | Outpatient (RCR) | payer OTHER, BC, SELFPAY ==
[2021-07-13 09:13] LABS: Basophils % 0.5 %; Eosinophils # 0.2 10^3/uL (0.0-0.8); Eosinophils % 4.7 %; Hematocrit 43.3 % (42.0-52.0); Hemoglobin 14.8 g/dL (11.7-16.6); Lymphocytes # 0.7 10^3/uL (0.8-4.8); Lymphocytes % 18.2 %; Mean Corpuscular HGB Conc 34.2 g/dL (30.0-36.0); Mean Corpuscular Hemoglobin 32.5 pg (28.0-34.0); Mean Platelet Volume 9.7 fL (7.4-10.4); Monocytes # 0.6 10^3/uL (0.2-0.9); Monocytes % 15.6 %; Neutrophils # 2.29 10^3/uL (1.8-7.7); Neutrophils % 60.5 %; Nucleated Red Blood Cells % 0 %; Platelet Count 186 10^3/cmm (130-400); Red Blood Count 4.56 10^6/uL (4.1-5.3); Red Cell Distribution Width 15.9 % (12.1-15.1); White Blood Count 3.8 10^3/uL (4.0-10.0)
[2021-07-13 09:29] LABS: Alanine Aminotransferase 24 U/L (0-41); Alkaline Phosphatase 85 IU/L (40-130); Anion Gap 13.5 (5-19); Aspartate Amino Transferase 18 U/L (0-40); Blood Urea Nitrogen 9 mg/dL (6-20); Calcium 8.8 mg/dL (8.5-10.5); Carbon Dioxide 27 mmol/L (22-29); Chloride 101 mmol/L (98-107); Globulin 2.4 g/dL (1.3-4.6); Glucose 184 mg/dL (65-115); Osmolality Calculated 289 mOsm/kg (285-295); Potassium 3.5 mmol/L (3.5-5.1); Sodium 138 mmol/L (136-145); Total Bilirubin 0.3 mg/dL (0.15-1.2); Total Protein 6.4 g/dL (6.6-8.7)
[2021-07-13] MEDS: palonosetron 0.25 mg/5 mL SDV IV (10:08)
[2021-07-13] MEDS: sodium chloride 0.9% 250 ML 75 ML IV (10:08)
[2021-07-13] MEDS: loratadine 10 mg Tablet PO (10:10)
[2021-07-13] MEDS: acetaminophen 325 mg Tablet 650 MG PO (10:10)
[2021-08-03 09:02] LABS: Basophils % 0.7 %; Eosinophils # 0.2 10^3/uL (0.0-0.8); Eosinophils % 4.1 %; Hemoglobin 14.8 g/dL (11.7-16.6); Lymphocytes % 21.1 %; Mean Corpuscular HGB Conc 35.2 g/dL (30.0-36.0); Mean Corpuscular Hemoglobin 32.4 pg (28.0-34.0); Mean Corpuscular Volume 91.9 fl (80-94); Mean Platelet Volume 9.8 fL (7.4-10.4); Monocytes # 0.7 10^3/uL (0.2-0.9); Monocytes % 14.6 %; Neutrophils # 2.71 10^3/uL (1.8-7.7); Neutrophils % 59.1 %; Nucleated Red Blood Cells % 0 %; Platelet Count 179 10^3/cmm (130-400); Red Blood Count 4.57 10^6/uL (4.1-5.3); Red Cell Distribution Width 14.5 % (12.1-15.1); White Blood Count 4.6 10^3/uL (4.0-10.0)
[2021-08-03 09:31] LABS: Alanine Aminotransferase 24 U/L (0-41); Albumin Level 4.1 g/dL (3.5-5.2); Alkaline Phosphatase 96 IU/L (40-130); Anion Gap 16.7 (5-19); Aspartate Amino Transferase 19 U/L (0-40); Blood Urea Nitrogen 12 mg/dL (6-20); Calcium 8.2 mg/dL (8.5-10.5); Carbon Dioxide 24 mmol/L (22-29); Chloride 104 mmol/L (98-107); Globulin 1.3 g/dL (1.3-4.6); Glomerular Filtration Rate 173.9 mL/min (90-130); Glucose 101 mg/dL (65-115); Osmolality Calculated 292 mOsm/kg (285-295); Potassium 3.7 mmol/L (3.5-5.1); Sodium 141 mmol/L (136-145); Total Bilirubin 0.3 mg/dL (0.15-1.2); Total Protein 5.4 g/dL (6.6-8.7)
[2021-08-03] MEDS: sodium chloride 0.9% 250 ML 75 ML IV (10:50)
[2021-08-03] MEDS: palonosetron 0.25 mg/5 mL SDV IV (10:50)
[2021-08-03] MEDS: acetaminophen 325 mg Tablet 650 MG PO (10:50)
[2021-08-03] MEDS: loratadine 10 mg Tablet PO (10:50)
--- NOTE | 2021-08-07 09:48 | ONC FU_ITS ---
Dr. Kearns Patient Follow-Up Note Patient: Ricky Flores Unit #: [id number]: 1965 Dicatated By: Jurgen Kearns M.D.Date of Visit:Aug 03, 2021 Onc Med Follow-up/Prog Note Chief Complaint: Esophageal cancer. 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 His disease was stage IIIB (ypT3, ypN1, M0) at initial diagnosis in June 2018, but with subsequent progression to stage IV (M1). He had presented with iron deficiency anemia and weight loss. He underwent EGD and colonoscopy on 06/15/2018. The colonoscopy showed 2 small sessile polyps in the mid transverse colon, both of which were removed endoscopically. The EGD showed a circumferential and partially obstructing, large size, malignant appearing mass in the lower third esophagus. The stomach and duodenum appeared unremarkable. Biopsy of the esophageal mass showed well-differentiated infiltrating adenocarcinoma with papillary histologic pattern. On subsequent evaluation, the tumor was confirmed to be MSI stable. It did show overexpression of HER-2/quoc, 3+ by IHC and amplification ratio by FISH of 1.8 with 7.3 HER-2 copies/cell. Staging CT scans of the chest, abdomen, and pelvis on 06/15/2018 showed increased soft tissue thickening suggested at the level of the gastroesophageal junction, estimated at 5 cm in width and 4 cm in depth. There was mild thickening of the wall of the distal esophagus. A superior right paratracheal lymph node measured 1.9 x 2.8 cm. The abdomen showed 2 adjacent perigastric lymph nodes near the greater curvature, located between the stomach and pancreas, measuring 1.7 and 2.2 cm. There was no other intra-abdominal or retroperitoneal adenopathy noted, and there was no evidence of other metastatic disease. Staging PET/CT on 06/23/2018 showed a 3 cm hypermetabolic segment of the distal esophagus with SUV 15.0, consistent with primary malignancy. A 2.2 cm gastrohepatic lymph node had SUV 4.1, consistent with local metastatic disease. There was no evidence for other metastatic involvement. The superior right paratracheal lymph node was noted to be FDG negative, consistent with benign disease. He underwent definitive treatment through the [facility]. His treatment included neoadjuvant chemoradiation utilizing weekly carboplatin/Taxol followed by [place] [facility] esophagectomy on 10/30/2018. I do not have the complete pathology report available, but the final staging was IIIB (ypT3, ypN1, M0). He was then followed on observation/expectant management. His surveillance CT scans of the chest, abdomen, and pelvis at [facility] on 01/15/2020 showed interval development of an 8 mm pulmonary nodule in the left major fissure and a 1.1 cm left lower lobe medial basal segment nodule, concerning for metastatic disease. A few other smaller nodules measuring 3 mm or less were also seen in the left lower lobe. There was interval enlargement of the right upper paratracheal lymph node measuring 2 cm. He then underwent EBUS with FNA biopsy of the right paratracheal lymph node on 02/05/2020. Pathology showed metastatic adenocarcinoma consistent with esophageal primary. He had medical oncology follow-up with Dr. Kulwant Knight on 02/13/2020. He was recommended to undergo placement of Port-A-Cath venous access device and to begin a course of chemotherapy with modified FOLFOX. A Foundation Package Concierge next generation sequencing study also was requested, biut there was insufficient material available to complete the study. A repeat PET/CT on 02/22/2020 showed interval development of 2 malignant lymph nodes, the dominant lesion in the right paratracheal area measuring 2.9 cm with SUV 6.8. The second was a lesion in the right cervical level IV territory measuring 2.6 x 1.6 cm, SUV 4.0. There were no other sites of abnormal FDG uptake on that study. With insufficient tissue sample available for any additional studies, I had requested a Foundation One next generation sequencing study by liquid biopsy. 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 There were no actionable mutations reported. I had been seeing him for a follow-up visit on 03/27/2020. With his disease apparently localized to the right paratracheal and lower right supraclavicular nodes, he was interested in pursuing local/regional treatment, and he then had radiation oncology consultation with Dr. Fidel Coronado. His further management was complicated by development of COVID-19 virus infection, confirmed on 04/13/2020. Restaging chest CT on 04/30/2020 showed masslike right paratracheal lymphadenopathy measuring 3.8 x 2.7 cm with mild mass-effect on the thoracic trachea. It had increased from 2.7 x 2.5 cm on the February PET/CT. A prominent left hilar lymph node measuring 12 mm appeared unchanged. The fibrotic appearing nodule in the left lower lobe on the January 2020 CT appeared to have resolved. Neck CT showed a large heterogeneous enhancing right supraclavicular lymph node measuring 3.5 x 1.8 cm, increased from 2.6 x 1.9 cm on the February PET/CT. He was able to begin radiation to the involved area in the right neck/upper chest on 05/04/2020. He completed treatment on 06/15/2020 to a total dose of [address] scans of the chest, abdomen, and pelvis on 07/20/2020 showed slight increase in the right paratracheal mass/adenopathy, measuring approximately 4 cm in maximum diameter. There was noted to be increasing tracheal displacement, but that was compared to the January 2020 CT scan. I reviewed the scans with the radiologist, and it appeared that the progression was very minimal. As such, I had recommended that he be just be followed on close observation. Restaging CT scans on 09/01/2020 showed slight interval improvement in the right supraclavicular lymph node measuring 1.9 x 1.5 x 1.2 cm. There was also slight improvement in right paratracheal lymphadenopathy measuring 2.3 x 2.2 x 3.3 cm. There was no evidence of disease progression. His repeat chest CT on 10/13/2020 showed significant progression in the right paratracheal lymphadenopathy. A soft tissue nodule was noted to be extending into the tracheal lumen. Also noted was development of a new lesion in the right lobe of the liver measuring 2.6 x 3.1 cm. Bronchoscopy on 10/14/2020 showed an exophytic mass originating from the posterior tracheal membrane located about 3.5 to 4 cm below the vocal cords. It was noted to occlude approximately 85 to 90% of the lumen. He was transferred urgently to [facility] for admission, and he subsequently underwent a palliative surgical procedure. Repeat CT scans at [facility] on 11/02/2020 showed residual right paratracheal mass measuring 3.3 x 3.0 cm with decreased luminal extension into the trachea. There was unchanged right supraclavicular lymphadenopathy measuring 1.4 x 1.7 cm. There was redemonstration of hepatic metastasis measuring 3.4 x 2.6 cm, with slight interval increase. He then returned here to begin systemic therapy with modified FOLFOX chemotherapy in combination with Herceptin. His other medical illnesses include hypertension, hypertriglyceridemia, type II diabetes, hypothyroidism, androgen deficiency, obstructive sleep apnea, degenerative arthritis, and glaucoma. He also has history of diverticulitis and a history of recurrent episodes of nephrolithiasis. His other surgeries include cataract excision from the left eye, carpal tunnel release on the left, vasectomy, and extracorporeal shockwave lithotripsy. He underwent right total hip arthroplasty on 07/29/2019. He is a non-smoker, but he had chewed tobacco for 35 years, estimated 2 to 3 cans/day. He does not drink alcohol. INTERIM HISTORY: He began cycle 1 of modified FOLFOX with Herceptin on 11/17/2020. He tolerated it pretty well, though he did experience some fatigue and some neuropathy with it. He continued with cycle 2 of modified FOLFOX with Herceptin on 12/01/2020. In the meantime, he been to [facility] for follow-up with his surgeon at [facility]. He was noted to have some regrowth of the tracheal mass. He then returned and underwent re-resection of the tracheal mass on 12/09/2020. He continued with cycle 3 of FOLFOX/Herceptin on 12/15/2020 and with cycle 4 on 12/29/2020. With cycle 3 the oxaliplatin was omitted due to worsening neuropathy symptoms. It was restarted with cycle 4 at a reduced dosage. His cycle 5 on 01/12/2021 was administered with a further dose reduction in the oxaliplatin and with a dose reduction in the 5-FU infusion. He had a follow-up visit at [facility] on 02/02/2021. His restaging CT scans show changes of bronchoscopic tumor debulking with a residual partially necrotic lesion involving the right aspect of the trachea and extending posteriorly. There was stable right supraclavicular lymphadenopathy and there was resolution of the previously noted hepatic segment 7 metastatic lesion. Overall, there was some evidence of response and no evidence of disease progression. With those findings, he was recommended to continue chemotherapy with infusional 5-FU together with Herceptin at a 3-week dosing interval. Due to a previously planned family vacation, his scheduled treatment on 02/08/2021 was limited to just Herceptin. As of 03/01/2021 he restarted infusional 5-FU in combination with Herceptin, and he then continued treatment at 2-week intervals. His repeat chest CT at [facility] on 05/18/2021 showed slight further decrease in the size of the right paratracheal and right supraclavicular lymphadenopathy. Subcarinal lymphadenopathy with punctate calcifications also appeared stable and felt to possibly represent a granulomatous process. There was no evidence of disease progression. He was recommended to continue treatment with Herceptin/infusional 5-FU at a 3-week dosing interval. With cycle 14, on 06/22/2021, the 5-FU bolus was omitted and the infusional 5-FU dosage was reduced by 20% due to neutropenia and worsening mucositis. He is seen for a followup visit. He has now completed 16 cycles of treatment. He says his energy has not been very good, particularly since his last COVID-19 vaccination. He is still able to do some work. ECOG score is 1. His appetite is not very good. His weight is stable. He does not have fever or night sweats. He has had just a very minor sore mouth. He does not complain of cough and he has not been having shortness of breath or chest pain. He currently has no GI or complaints. He has no significant joint or bone pain. He does not complain of headache or dizziness. He does not have any significant residual neuropathy. Medications: Bystolic 1 Tablet (of 10 mg) Oral daily, Dronabinol 1 (5 mg) Capsule Oral b.i.d., Fluconazole 1 Tablet (of 100 mg) Oral daily, Gabapentin 1 Capsule (of 300 mg) Oral b.i.d., Glimepiride 1 Tablet (of 4 mg) Oral b.i.d., HumaLOG 200 Units (of 100 Units/mL) Subcutaneous PRN, Lantus 40 Units (of 100 Units/mL) Subcutaneous daily, Levothyroxine Sodium 1 Tablet (of 175 mcg) Oral daily, Nitrofurantoin Macrocrystal 1 Capsule (of 100 mg) Oral daily, oxyCODONE HCl 1 (5 mg) Tablet Oral q 4 hours PRN, Pantoprazole Sodium 1 Tablet (of 40 mg) Tablet, enteric coated Oral daily, Tamsulosin HCl 1 Cartridge (of 0.4 mg) Capsule Oral b.i.d., Timolol Maleate 1 Drop(s) (of 0.5 %) Solution Ophthalmic daily Allergies: Morphine Sulfate Vital Signs: Performed on Aug 03, 2021 14:18 Height - 75.00 in Weight - 233.0 lbs (LOW) BSA - 2.34 sq.m BMI - 29.12 Temperature - 97.8 F (LOW) Pulse - 61 /min Respiration - 16 /min BP - 143/80 mm(hg) (HIGH) O2 Sat - 96 % Pain - 0 Fatigue - 8 Physical Examination: Constitutional - He looks good generally, Eyes - Sclerae nonicteric. Conjunctivae clear, ENMT - No lesions noted in the oral cavity, Hematologic/Lymphatic - There is no cervical, clavicular, or axillary adenopathy noted, Respiratory - Lungs sound clear with good air movement bilaterally, Cardiovascular - Heart rhythm is regular. There is no murmur, gallop or rub noted, Abdomen - Soft. Liver and spleen are not enlarged. There is no abdominal mass or ascites noted and there is no inguinal adenopathy, Extremities - No edema, Neurologic - No focal neurologic deficits noted. Lab/Imaging: Test performed on Aug 03, 2021 08:40 Sodium 141 mmol/L Potassium 3.7 mmol/L Chloride 104 mmol/L CO2 24 mmol/L Anion Gap 16.7 BUN 12 mg/dL Creatinine 0.5 mg/dL Cr Clearance (Est) 250.8100 mL/min eGFR 173.9 mL/min Glucose 101 mg/dL Osmolality - Calculated 292 mOsm/kg Calcium 8.2 mg/dL Protein, Total 5.4 g/dL Albumin 4.1 g/dL Globulin 1.3 g/dL Bilirubin, Total 0.3 mg/dL ALT (SGPT) 24 U/L AST (SGOT) 19 U/L Alkaline Phosphatase 96 IU/L WBC 4.6 10 3/uL RBC 4.57 10 6/uL HGB 14.8 g/dL HCT 42.0 % MCV 91.9 fl MCH 32.4 pg MCHC 35.2 g/dL RDW 14.5 % Platelet Count 179 10 3/cmm MPV 9.8 fL Neutrophils 2.71 10 3/uL Lymphocytes 1.0 10 3/uL Monocytes 0.7 10 3/uL Eosinophils 0.2 10 3/uL Basophils 0.0 10 3/uL Neutrophil % 59.1 % Lymphocyte % 21.1 % Monocyte % 14.6 % Eosinophil % 4.1 % Basophils % 0.7 % NRBC % 0 % Problem List: 1. Well differentiated infiltrating adenocarcinoma involving the lower third of the esophagus, HER-2/quoc positive. He disease was stage IIIB (ypT3, ypN1, M0) at initial diagnosis in June 2018, but with subsequent progression to stage IV (M1), with involvement in the right paratracheal lymph node confirmed by EBUS/FNA biopsy on 02/05/2020. His next generation sequencing study by liquid biopsy showed no actionable mutations. 2. Hypertension. 3. Hyperlipidemia. 4. Type II diabetes. 5. Obstructive sleep apnea. 6. Degenerative arthritis. 7. He has posttraumatic glaucoma of the left eye. 8. He has a history of recurrent episodes of nephrolithiasis. 9. He has a history of diverticulitis. Problems Addressed with this Encounter and Plan: Patient with well differentiated infiltrating adenocarcinoma involving the lower third of the esophagus, HER-2/quoc positive. He disease was stage IIIB (ypT3, ypN1, M0) at initial diagnosis in June 2018. His initial treatment included neoadjuvant chemoradiation utilizing weekly carboplatin/Taxol followed by [place] [facility] esophagectomy on 10/30/2018. He had subsequent progression to stage IV (M1), with involvement in the right paratracheal lymph node confirmed by EBUS/FNA biopsy on 02/05/2020. His staging PET/CT showed uptake in the known involved right paratracheal lymph node and an additional area of uptake in a right cervical level IV territory node measuring 2.6 x 1.6 cm, SUV 4.0. With disease localized to right supraclavicular and right paratracheal lymph nodes, he was interested in pursuing local/regional treatment. His further treatment was complicated by COVID-19 virus infection, from which he had uneventful recovery. His restaging CT scans of the neck and chest on 04/30/2020 did show further progression of the lymphadenopathy, but still with localized involvement. He then began radiation to the right neck/upper chest on 05/04/2020. He completed treatment on 06/15/2020 to a total dose of [address] scans on 09/01/2020 showed no evidence of disease progression. At his follow-up visit on 10/06/2020 he had developed some coughing spells, occasionally with associated hemoptysis. His repeat chest CT on 10/13/2020 showed progression of the right paratracheal mass with apparent extension into the trachea. This was confirmed by bronchoscopy on 10/14/2020, with evidence of exophytic mass originating from the posterior tracheal membrane at the level of about 3.5 to 4 cm below the vocal cords with associated 85 to 90% occlusion of the lumen. Also noted at that time was development of a new metastatic lesion in the liver. He was admitted to [facility] where he underwent a palliative surgical procedure. On 11/17/2020 he began cycle 1 of systemic therapy with modified FOLFOX chemotherapy in combination with Herceptin. He had mild neuropathy lasting 3 days after that treatment. He also had some fatigue, but overall he tolerated it well. He continued with cycle 2 on 12/01/2020. With that treatment he had significantly more toxicity with increased fatigue, more severe neuropathy, and some stomatitis. In the meantime, he had returned to [facility] for re-resection of recurrent tracheal mass. He tolerated the surgery well. He continue with his third cycle of chemotherapy on 12/15/2020, but with omission of the oxaliplatin due to increased neuropathy. The oxaliplatin was restarted at a reduced dosage with cycle 4 on 12/29/2020. His cycle 5 on 01/12/2021 was administered with a further reduction in the oxaliplatin dosage, with omission of the 5-FU bolus, and with a dose reduction in the 5-FU infusion. With those changes, he had just mild neuropathy, but he continued to have severe fatigue. He proceeded with his 6th cycle of treatment on 01/26/2021. He had a follow-up visit at [facility] on 02/02/2021. His restaging CT scans showed a residual partially necrotic lesion involving the right aspect of the trachea along with stable right supraclavicular lymphadenopathy. There was resolution of previously noted metastatic lesion involving hepatic segment 7. With those findings, he was recommended to continue chemotherapy with infusional 5-FU and Herceptin. His schedule treatment on 02/08/2021 was limited to just Herceptin, at his request. He then began treatment with infusional 5-FU in combination with Herceptin on 03/01/2021. During follow-up he has continued to have some fatigue and anorexia, but he had generally tolerated the treatment well and his overall clinical status improved with the change in his chemotherapy. At his follow-up visit at [facility] on 05/18/2021 there was a slight further decrease in the right paratracheal and right supraclavicular lymphadenopathy, and he was recommended to continue treatment with Herceptin and infusional 5-FU at a 3-week dosing interval. He had been feeling somewhat better generally with his chemotherapy administered at a 3-week dosing interval. Hwoever, at follow-up visit on 06/22/2021 he had become mildly neutropenic and he was also having increased mucositis with the chemotherapy. At that point the 5-FU bolus was omitted and he was given a 20% reduction in the infusional 5-FU dosage. His symptoms have since then improved, though he still has some treatment related fatigue. Overall, though, he appears to be doing well clinically with no obvious progression of the esophageal cancer. He will proceed now with cycle 17 of infusional 5-FU/Herceptin. The dosages remain the same. He will return in 4 weeks, as he is scheduled for follow-up at [facility] in 3 weeks. Signed By: Jurgen Kearns M.D. <<Signature on File>>
== END 2021-08-03 23:59 | disposition home or self-care (01) ==
LOC: ONCMED 06:29
PROVIDERS: PCP Internal Medicine; Visit Provider Internal Medicine Medical Oncology
DX: Z51.12 Encounter for antineoplastic immunotherapy (principal); Z51.11 Encounter for antineoplastic chemotherapy; C15.5 Malignant neoplasm of lower third of esophagus; C77.8 Secondary and unspecified malignant neoplasm of lymph nodes of multiple regions; I10 Essential (primary) hypertension; E78.5 Hyperlipidemia, unspecified; G47.33 Obstructive sleep apnea (adult) (pediatric); M19.90 Unspecified osteoarthritis, unspecified site; E11.39 Type 2 diabetes mellitus with other diabetic ophthalmic complication; H40.89 Other specified glaucoma; H42 Glaucoma in diseases classified elsewhere; Z87.442 Personal history of urinary calculi; Z87.19 Personal history of other diseases of the digestive system; Z79.899 Other long term (current) drug therapy
CPT/HCPCS: 80053; 85025; 96367; 96375; 96413; 96416; 96523; 99215; J1100; J2469; J7050; J9190; J9355

== ENCOUNTER 2021-09-02 06:16 | Outpatient (RCR) | payer OTHER, BC, SELFPAY ==
[2021-08-31 08:20] LABS: Basophils # 0.1 10^3/uL (0.0-0.1); Basophils % 0.9 %; Eosinophils # 0.2 10^3/uL (0.0-0.8); Eosinophils % 3.2 %; Hematocrit 45.1 % (42.0-52.0); Hemoglobin 15.1 g/dL (11.7-16.6); Lymphocytes # 1.1 10^3/uL (0.8-4.8); Mean Corpuscular HGB Conc 33.5 g/dL (30.0-36.0); Mean Corpuscular Hemoglobin 31.7 pg (28.0-34.0); Mean Corpuscular Volume 94.7 fl (80-94); Mean Platelet Volume 9.8 fL (7.4-10.4); Monocytes # 0.7 10^3/uL (0.2-0.9); Monocytes % 12.4 %; Neutrophils # 3.35 10^3/uL (1.8-7.7); Neutrophils % 63.1 %; Nucleated Red Blood Cells % 0 %; Platelet Count 199 10^3/cmm (130-400); Red Blood Count 4.76 10^6/uL (4.1-5.3); Red Cell Distribution Width 13.6 % (12.1-15.1); White Blood Count 5.3 10^3/uL (4.0-10.0)
[2021-08-31 08:48] LABS: Alanine Aminotransferase 22 U/L (0-41); Albumin Level 4.1 g/dL (3.5-5.2); Alkaline Phosphatase 103 IU/L (40-130); Aspartate Amino Transferase 23 U/L (0-40); Blood Urea Nitrogen 7 mg/dL (6-20); Calcium 8.3 mg/dL (8.5-10.5); Carbon Dioxide 24 mmol/L (22-29); Chloride 102 mmol/L (98-107); Globulin 2.1 g/dL (1.3-4.6); Glomerular Filtration Rate 173.9 mL/min (90-130); Glucose 224 mg/dL (65-115); Osmolality Calculated 293 mOsm/kg (285-295); Sodium 139 mmol/L (136-145); Total Bilirubin 0.3 mg/dL (0.15-1.2); Total Protein 6.2 g/dL (6.6-8.7)
[2021-08-31 08:57] LABS: Anion Gap 16.9 (5-19); Potassium 3.9 mmol/L (3.5-5.1)
[2021-08-31] MEDS: acetaminophen 325 mg Tablet 650 MG PO (10:00)
[2021-08-31] MEDS: loratadine 10 mg Tablet PO (10:00)
[2021-08-31] MEDS: palonosetron 0.25 mg/5 mL SDV IV (10:00)
[2021-08-31] MEDS: sodium chloride 0.9% 250 ML 75 ML IV (10:00)
[2021-09-02] MEDS: sodium chloride 0.9% 1,000 ML 999 ML IV (09:15)
== END 2021-09-03 23:59 | disposition home or self-care (01) ==
LOC: ONCMED 06:16
PROVIDERS: PCP Internal Medicine; Visit Provider Internal Medicine Medical Oncology
DX: Z51.11 Encounter for antineoplastic chemotherapy (principal); C15.5 Malignant neoplasm of lower third of esophagus; C77.1 Secondary and unspecified malignant neoplasm of intrathoracic lymph nodes; Z79.52 Long term (current) use of systemic steroids
CPT/HCPCS: 80053; 85025; 96360; 96367; 96375; 96413; 96416; 96523; J1100; J2469; J7030; J7050; J9190; J9355

== ENCOUNTER 2021-10-08 13:13 | Outpatient (CLI) | payer OTHER, BC, SELFPAY ==
[2021-10-08 15:18] LABS: Adenovirus Not Detected (NOT DETECT); Chlamydia Pneumoniae Not Detected (NOT DETECT); Coronavirus 229E,HKU1,NL63,OC4 Not Detected (NOT DETECT); Human Metapneumovirus Not Detected (NOT DETECT); Human Rhinovirus/Enterovirus Detected (NOT DETECT); Influenza A Not Detected (NOT DETECT); Influenza A H1 Not Detected (NOT DETECT); Influenza A H1-2009 Not Detected (NOT DETECT); Influenza A H3 Not Detected (NOT DETECT); Influenza B Not Detected (NOT DETECT); Mycoplasma Pneumoniae Not Detected (NOT DETECT); Parainfluenza Virus Type 1 Not Detected (NOT DETECT); Parainfluenza Virus Type 2 Not Detected (NOT DETECT); Parainfluenza Virus Type 3 Not Detected (NOT DETECT); Parainfluenza Virus Type 4 Not Detected (NOT DETECT); Respiratory Syncytial Virus A Not Detected (NOT DETECT); Respiratory Syncytial Virus B Not Detected (NOT DETECT); SARS-COV-2 Not Detected (NOT DETECT)
[2021-10-08 15:26] LABS: Human Metapneumovirus Not Detected (NOT DETECT); Human Rhinovirus/Enterovirus Detected (NOT DETECT)
== END 2021-10-08 13:14 | disposition home or self-care (01) ==
PROVIDERS: Nurse Practitioner Family; PCP Internal Medicine; Visit Provider Internal Medicine
DX: Z20.822 Contact with and (suspected) exposure to COVID-19 (principal)
CPT/HCPCS: 87635; 87801

== ENCOUNTER 2021-10-12 14:43 | Inpatient (IN) | payer OTHER, SELFPAY ==
[2021-10-12] VITALS (9 sets, daily range): BP systolic 114–154; BP diastolic 59–76; PULSE 60–79; RESP 15–18; TEMP 36.8–36.9; O2SAT 95–98; BMI 29.7
--- NOTE | 2021-10-12 | CT_ITS ---
WS: PROCEDURE INFORMATION: Exam: CT Neck With Contrast Exam date and time: 10/12/2021 4:22 PM Age: 55 years old Clinical indication: Condition or disease; Cancer; Patient HX: HX of esophageal and lung CA w/ hemoptysis; Additional info: Lung CA hemoptysis TECHNIQUE: Imaging protocol: Computed tomography images of the neck with contrast. Sagittal and coronal reformatted images were created and reviewed. Radiation optimization: All CT scans at this facility use at least one of these dose optimization techniques: automated exposure control; mA and/or kV adjustment per patient size (includes targeted exams where dose is matched to clinical indication); or iterative reconstruction. Contrast material: OMNI 300; Contrast volume: 75 ml; Contrast route: INTRAVENOUS (IV); COMPARISON: CT chest w con* [id number] 10/12/2021 5:22 PM RADIATION DOSE METRICS: Total DLP (mGy-cm): 440.47 FINDINGS: Mastoid air cells: Visualized mastoid air cells are clear. Auditory system: Soft tissue density in the bilateral external auditory canals, presumably representing cerumen. Paranasal sinuses: Near complete opacification of the visualized left maxillary sinus and moderate opacification in the visualized left sphenoid sinus. The Impression. Nasopharynx: The nasopharynx is unremarkable. Oropharynx: The oropharynx is unrermarkable. No significant tonsillar enlargement. No tonsillar or peritonsillar abscess. Hypopharynx: The hypopharynx is unrermarkable. Larynx: The larynx is unremarkable. The epiglottis is unremarkable. Retropharyngeal space: The retropharyngeal space is unrermarkable. Submandibular/Parotid glands: The right and left parotid glands are unremarkable. The right and left submandibular glands are unremarkable. Thyroid: The thyroid gland is unremarkable. Lymph nodes: No lymphadenopathy. Trachea: The trachea is midline and patent. Lungs: Scarring in the medial right upper lobe. Bones/joints: Mild degenerative changes in the visualized spine. Vasculature: Mild atherosclerotic changes in the visualized arteries. Soft tissues: No soft tissue swelling. No radiopaque foreign body. Other findings: There is a left subclavian Port-A-Cath that is partially visualized. CT/CT neck w con* [id number] IMPRESSION: 1. No acute abnormality of the cervical soft tissues. 2. Incidental/nonacute findings are listed in the report.
--- NOTE | 2021-10-12 15:18 | XR_ITS ---
WS: [id number] XR chest 1V portable [id number] REASON FOR EXAM: dyspnea/cough FINDINGS: The chest is unchanged compared to previous examination of 10/14/2020. Chemotherapy infusion port over the left anterolateral chest wall with transvenous left subclavian ve in catheter with tip located in the superior vena cava. The heart and the mediastinum are within normal limits. Minimal calcified granulomatous change in both hemithoraces. No acute pulmonary parenchymal or pleural abnormality is identified. Bony thorax is intact. XR/XR chest 1V portable [id number] IMPRESSION: No acute chest abnormality.
--- NOTE | 2021-10-12 15:18 | ECG_ITS ---
[facility] Test Date: 2021-10-12 Pat Name: Ricky Flores Department: Room: Gender: Male Credit Charge Authorizer: : 1965 Requested By: Aydin Phillips Order Number: [id number] Manav MD: Chapin Taveras M.D. Measurements Intervals [place] Rate: 61 P: 50 [place]: 149 QRS: 8 QRSD: 89 T: 25 QT: 391 QTc: 397 Interpretive Statements SINUS RHYTHM No previous ECG available for comparison Electronically Signed On 10-12-2021 17:05:16 PRESS DEPARTMENT MANAGER by Chapin Taveras M.D. [email or web address]
--- NOTE | 2021-10-12 15:35 | ED_ITS ---
HPI - General Adult General: Chief complaint: ER Hold Stated complaint: Coughing up blood, Cancer patient Time Seen by Provider: 10/12/21 14:50 History of Present Illness: 55-year-old male with a history of lung cancer. Previously he had had hemoptysis and the tumor had eroded into his trachea. It had been treated he was and he is actively getting chemo for it on a continuous infusion. Today he began having hemoptysis that has been increasing in volume. He is not had any compromise of his airway. He is seeing Dr. Luna they are initially going to direct him to [place] where he receives most of his chemo radiation and surgical intervention in the past. Our core paster had seen him as well previously hemoptysis seem to increase and he was diverted to our ER. On arrival here he is comfortable he states about 5 minutes prior to arrival he had some hemoptysis. Coughed up a cupful of blood. Onset (ago): day(s) Location: chest Severity: mild Relieving factors: none Exacerbating factors: none Associated symptoms: Reports cough and short of breath; Deny chest pain, confusion, diaphoresis, decreased appetite, dyspnea, fevers/chills, headache(s), malaise, nausea, rash, palpitations, seizures, syncope, vomiting or weakness Treatments prior to arrival: none Review of Systems Const: Denies: malaise or diaphoresis ENMT: Denies: throat pain, ear or mastoid pain, nasal discharge or nasal congestion Card: Denies: chest pain, palpitations or syncope Resp: Reports: productive cough and hemoptysis; Denies: dyspnea GI: Denies: nausea or vomiting : Denies: flank pain, dysuria, urinary frequency or urinary urgency Skin/Breast: Denies: rash Neuro: Denies: headache(s) or confusion PFSH ED PFSH: Medical History Acquired hypothyroidism Adenocarcinoma of esophagus Calcium urolithiasis Candidal UTI (urinary tract infection) Chronic sinusitis Cystitis cystica Diabetes mellitus Esophageal cancer BOTTOM 1/3 OF ESOPHAGUS REMOVED Essential (primary) hypertension History of esophageal cancer Hypertriglyceridemia Hypogonadism Incomplete bladder emptying 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 Microcytic anemia YARED on CPAP Reactive depression Renal calculus, right Surgical History H/O: vasectomy History of esophageal surgery removal of part of esophagus History of esophagogastroduodenoscopy (EGD) Hx of colonoscopy Port-A-Cath in place (02/24/20) S/P cataract surgery S/P ureteral stent placement ESWL S/P wrist surgery Family History Father Heart disease Mother Hypertension Recurrent urinary tract infection Dementia Other Diabetes Social History Smoking and tobacco status: never smoked Quit status (tobacco): not considering quitting Alcohol intake: never Adopted: No Caregiver/support person: No Lives independently: No Household members: spouse Housing: House Marital status: Current occupational status: employed History of recent travel: No Physical Exam Const: COMMON NORMALS: no acute distress GENERAL APPEARANCE: cooperative and comfortable ORIENTATION/CONSCIOUSNESS: Yes awake, Yes oriented to person, Yes oriented to place and Yes oriented to time HENMT: COMMON NORMALS: normocephalic, atraumatic, hearing grossly normal bilaterally, external ears normal, EAC's normal, TM's normal bilaterally, Normal nasal mucous membranes and turbinates present, moist oral mucous membranes and oropharynx normal HEAD & SCALP: normocephalic and atraumatic NOSE: Normal nasal mucous membranes and turbinates present EXTERNAL EAR: Yes external ears normal EXTERNAL AUDITORY CANAL: EAC's normal TYMPANIC MEMBRANE: TM's normal bilaterally Eye: COMMON NORMALS: Equal, round and reactive pupils present, EOMs intact bilaterally, conjunctivae normal and no scleral icterus CONJUNCTIVA: Yes conjunctivae normal PUPIL: Yes Equal, round and reactive pupils present Neck/C-Spine: COMMON NORMALS: no JVD Resp: COMMON NORMALS: normal respiratory effort, No retractions, No use of accessory muscles and clear to auscultation bilaterally AUSCULTATION: clear to auscultation bilaterally Cardio: COMMON NORMALS: no JVD, regular rate, regular rhythm and No murmurs present (Cardio) RATE: regular rate RHYTHM: regular rhythm GI: COMMON NORMALS: Soft to palpation and No hepatosplenomegaly present AUSCULTATION: Yes normoactive bowel sounds PALPATION: Yes Soft to palpation, No Tenderness to palpation present (GI), No Guarding due to palpation present (GI) and Yes No hepatosplenomegaly present Extremity: COMMON NORMALS: normal to inspection, capillary refill normal, no clubbing, cyanosis or edema, no calf tenderness and no pedal edema Neuro: SENSORIUM/ORIENTATION: Yes oriented to person, Yes oriented to place and Yes oriented to time Skin: COMMON NORMALS: no rashes or lesions noted GENERAL SKIN EXAM: no rashes or lesions noted Course Vital Signs: Vital signs: Vital Signs Temperature 98.2 F 10/14/21 14:20 Pulse Rate 60 10/14/21 14:20 Respiratory Rate 18 10/14/21 14:20 Blood Pressure 130/70 10/14/21 14:20 Pulse Oximetry 98 10/14/21 14:20 MDM - General Adult Medical Decision Making Patient has known esophageal CA previously had erosion of the tumor into the trachea is treated definitively at [place]. Dr. Luna he called ahead and was actually in the ER assisting his. We are attempting to make transfer arrangements back to [place] for further evaluation but they could only place him on a list for potential transfers and felt it would take several days to get him there. After discussion with Dr. Luna hospitalist and with pulmonology we decided admit the patient here and Dr. March is planning on proceeding with a bronchoscopy. Patient did not have any further hemoptysis while in the emergency room discussed plan with him he is expresses understanding. Medical Records I reviewed the patient's medical records. Lab Data I reviewed the patient's lab results. : 10/14/21 09:23 10/13/21 06:[address] 10/12/21 00:00 IMPRESSION: 1. No acute abnormality of the cervical soft tissues. 2. Incidental/nonacute findings are listed in the report. Chest CT 10/12/21 16:22 IMPRESSION: 1. Centrilobular opacities in the right lower lobe could represent endobronchial infection or aspiration. 2. Esophagectomy with gastric pull-through procedure. Mild fat stranding at the anastomosis is most likely normal postsurgical scarring. ADDENDUM: 10/12/21 9907 On images 43-50, series 2, there is hyperdensity in the posterior lumen of the gastric pull-through. This could represent ingested medication. Extravasated contrast from active bleeding could also have this appearance. ADDENDUM: 10/12/211819 THIS REPORT CONTAINS FINDINGS THAT MAY BE CRITICAL TO PATIENT CARE. The findings were verbally communicated via telephone conference with AYDIN HIDALGO and Dr Hare at 6:18 PM [employer]ATE[employer] COMMUNICATIONS OPERATOR on 10/12/2021. The findings were acknowledged and understood. The fat stranding extending from the gastric pull-through anastomosis along the posterior right trachea could represent postsurgical scarring and/or residual tumor. There is no visible lesion invading the trachea or bronchi. No active bleeding is visualized within the large airways. Chest X-Ray 10/14/21 11:17 IMPRESSION: Stable chest. Laboratory Results WBC 16.2 10^3/uL (4.0-10.0) H 10/12/21 15:18 RBC 5.07 10^6/uL (4.1-5.3) 10/12/21 15:18 Hgb 15.6 g/dL (11.7-16.6) 10/12/21 15:18 Hct 47.6 % (42.0-52.0) 10/12/21 15:18 MCV 93.9 fl (80-94) 10/12/21 15:18 MCH 30.8 pg (28.0-34.0) 10/12/21 15:18 MCHC 32.8 g/dL (30.0-36.0) 10/12/21 15:18 RDW 13.6 % (12.1-15.1) 10/12/21 15:18 Plt Count 249 10^3/cmm (130-400) 10/12/21 15:18 MPV 10.0 fL (7.4-10.4) 10/12/21 15:18 Neut % (Auto) 86.5 % 10/12/21 15:18 Lymph % (Auto) 6.6 % 10/12/21 15:18 Haakon % (Auto) 6.3 % 10/12/21 15:18 Eos % (Auto) 0.0 % 10/12/21 15:18 Baso % (Auto) 0.2 % 10/12/21 15:18 Neut # (Auto) 13.98 10^3/uL (1.8-7.7) H 10/12/21 15:18 Lymph # (Auto) 1.1 10^3/uL (0.8-4.8) 10/12/21 15:18 Haakon # (Auto) 1.0 10^3/uL (0.2-0.9) H 10/12/21 15:18 Eos # (Auto) 0.0 10^3/uL (0.0-0.8) 10/12/21 15:18 Baso # (Auto) 0.0 10^3/uL (0.0-0.1) 10/12/21 15:18 Nucleated RBC % (auto) 0 % 10/12/21 15:18 Nucleated RBCs # 0.0 /100WBC 10/12/21 15:18 PT 13.80 SECONDS (12.1-14.9) 10/12/21 15:18 INR 1.02 (0.8-1.2) 10/12/21 15:18 APTT 26.0 SECONDS (23.9-36.7) 10/12/21 15:18 Sodium 131 mmol/L (136-145) L 10/12/21 15:18 Potassium 4.3 mmol/L (3.5-5.1) 10/12/21 15:18 Chloride 96 mmol/L (98-107) L 10/12/21 15:18 Carbon Dioxide 21 mmol/L (22-29) L 10/12/21 15:18 Anion Gap 18.3 (5-19) 10/12/21 15:18 BUN 16 mg/dL (6-20) 10/12/21 15:18 Creatinine 0.6 mg/dL (0.7-1.2) L 10/12/21 15:18 GFR Calculation 140.9 mL/min (90-130) H 10/12/21 15:18 Glucose 351 mg/dL (65-115) H 10/12/21 15:18 Calculated Osmolality 287 mOsm/kg (285-295) 10/12/21 15:18 Calcium 10.1 mg/dL (8.5-10.5) 10/12/21 15:18 Iron 135 ug/dL (59-158) 10/12/21 15:18 TIBC 325 mcg/dl 10/12/21 15:18 % Saturation 41.5 % (20-50) 10/12/21 15:18 Unsat Iron Binding 190 ug/dL (112-347) 10/12/21 15:18 Total Bilirubin 0.4 mg/dL (0.15-1.2) 10/12/21 15:18 AST 16 U/L (0-40) 10/12/21 15:18 ALT 22 U/L (0-41) 10/12/21 15:18 Alkaline Phosphatase 107 IU/L (40-130) 10/12/21 15:18 Total Protein 6.9 g/dL (6.6-8.7) 10/12/21 15:18 Albumin 4.2 g/dL (3.5-5.2) 10/12/21 15:18 Globulin 2.7 g/dL (1.3-4.6) 10/12/21 15:18 Nasal Influ A H1 2009 PCR Not detected (NOT DETECT) 10/12/21 16:19 Coronavirus 229E (PCR) Not detected (NOT DETECT) 10/12/21 16:19 Influenza A (H1) PCR Not detected (NOT DETECT) 10/12/21 16:19 Influenza A (H3) PCR Not detected (NOT DETECT) 10/12/21 16:19 Influenza Type A (PCR) Not detected (NOT DETECT) 10/12/21 16:19 Influenza Type B (PCR) Not detected (NOT DETECT) 10/12/21 16:19 SARS-CoV-2 (PCR) Not detected (NOT DETECT) 10/12/21 16:19 Discharge Plan Discharge Patient Disposition: Admitted As Inpatient Admit Provider: Chas Chicas Condition: Stable Discharge Diet: Soft Mechanical Discharge Activity: Resume usual activity and Increase activity as tolerated Coding Level of Care Code ED [employer] Tower Controller for Jessica Ndiaye
[2021-10-12 15:45] LABS: Basophils % 0.2 %; Hematocrit 47.6 % (42.0-52.0); Hemoglobin 15.6 g/dL (11.7-16.6); Lymphocytes # 1.1 10^3/uL (0.8-4.8); Lymphocytes % 6.6 %; Mean Corpuscular HGB Conc 32.8 g/dL (30.0-36.0); Mean Corpuscular Hemoglobin 30.8 pg (28.0-34.0); Mean Corpuscular Volume 93.9 fl (80-94); Monocytes % 6.3 %; Neutrophils # 13.98 10^3/uL (1.8-7.7); Neutrophils % 86.5 %; Nucleated Red Blood Cells % 0 %; Platelet Count 249 10^3/cmm (130-400); Red Blood Count 5.07 10^6/uL (4.1-5.3); Red Cell Distribution Width 13.6 % (12.1-15.1); White Blood Count 16.2 10^3/uL (4.0-10.0)
[2021-10-12 15:48] LABS: INR 1.02 (0.8-1.2)
[2021-10-12 16:03] LABS: Alanine Aminotransferase 22 U/L (0-41); Albumin Level 4.2 g/dL (3.5-5.2); Alkaline Phosphatase 107 IU/L (40-130); Anion Gap 18.3 (5-19); Aspartate Amino Transferase 16 U/L (0-40); Blood Urea Nitrogen 16 mg/dL (6-20); Calcium 10.1 mg/dL (8.5-10.5); Carbon Dioxide 21 mmol/L (22-29); Chloride 96 mmol/L (98-107); Globulin 2.7 g/dL (1.3-4.6); Glomerular Filtration Rate 140.9 mL/min (90-130); Glucose 351 mg/dL (65-115); Osmolality Calculated 287 mOsm/kg (285-295); Potassium 4.3 mmol/L (3.5-5.1); Sodium 131 mmol/L (136-145); Total Bilirubin 0.4 mg/dL (0.15-1.2); Total Protein 6.9 g/dL (6.6-8.7)
--- NOTE | 2021-10-12 16:22 | CTR_ITS ---
PROCEDURE INFORMATION: Exam: CT Neck With Contrast Exam date and time: 10/12/2021 4:22 PM Age: 55 years old Clinical indication: Condition or disease; Cancer; Patient HX: HX of esophageal and lung CA w/ hemoptysis; Additional info: Lung CA hemoptysis TECHNIQUE: Imaging protocol: Computed tomography images of the neck with contrast. Sagittal and coronal reformatted images were created and reviewed. Radiation optimization: All CT scans at this facility use at least one of these dose optimization techniques: automated exposure control; mA and/or kV adjustment per patient size (includes targeted exams where dose is matched to clinical indication); or iterative reconstruction. Contrast material: OMNI 300; Contrast volume: 75 ml; Contrast route: INTRAVENOUS (IV); COMPARISON: CT chest w con* [id number] 10/12/2021 5:22 PM RADIATION DOSE METRICS: Total DLP (mGy-cm): 440.47 FINDINGS: Mastoid air cells: Visualized mastoid air cells are clear. Auditory system: Soft tissue density in the bilateral external auditory canals, presumably representing cerumen. Paranasal sinuses: Near complete opacification of the visualized left maxillary sinus and moderate opacification in the visualized left sphenoid sinus. The Impression. Nasopharynx: The nasopharynx is unremarkable. Oropharynx: The oropharynx is unrermarkable. No significant tonsillar enlargement. No tonsillar or peritonsillar abscess. Hypopharynx: The hypopharynx is unrermarkable. Larynx: The larynx is unremarkable. The epiglottis is unremarkable. Retropharyngeal space: The retropharyngeal space is unrermarkable. Submandibular/Parotid glands: The right and left parotid glands are unremarkable. The right and left submandibular glands are unremarkable. Thyroid: The thyroid gland is unremarkable. Lymph nodes: No lymphadenopathy. Trachea: The trachea is midline and patent. Lungs: Scarring in the medial right upper lobe. Bones/joints: Mild degenerative changes in the visualized spine. Vasculature: Mild atherosclerotic changes in the visualized arteries. Soft tissues: No soft tissue swelling. No radiopaque foreign body. Other findings: There is a left subclavian Port-A-Cath that is partially visualized.
--- NOTE | 2021-10-12 16:22 | CTR_ITS ---
PROCEDURE INFORMATION: Exam: CT Chest With Contrast; Diagnostic Exam date and time: 10/12/2021 4:22 PM Age: 55 years old Clinical indication: Condition or disease; Lung condition and disease; Cancer of the lung; Right; Lobe, lower; Patient HX: PT w/ HX of esophageal and lung cancer TECHNIQUE: Imaging protocol: Diagnostic computed tomography of the chest with contrast. Radiation optimization: All CT scans at this facility use at least one of these dose optimization techniques: automated exposure control; mA and/or kV adjustment per patient size (includes targeted exams where dose is matched to clinical indication); or iterative reconstruction. Contrast material: OMNI 300; Contrast volume: 75 ml; Contrast route: INTRAVENOUS (IV); COMPARISON: CR XR chest 1V portable [id number] 10/12/2021 3:28 PM RADIATION DOSE METRICS: Total DLP (mGy-cm): 1019.64 FINDINGS: Tubes, catheters and devices: Left subclavian [id number] with tip in the SVC. Lungs: Mild scarring in the right lung apex. Patchy centrilobular (tree-in-bud) opacities in the posteroinferior right lower lobe. Mild atelectasis in the lower lobes. Lungs are otherwise clear. Pleural spaces: Unremarkable. No pneumothorax. No pleural effusion. Heart: Unremarkable. No cardiomegaly. No pericardial effusion. Mediastinal space: Esophagectomy with gastric pull-through procedure. Aorta: Unremarkable. No aortic aneurysm. Lymph nodes: Unremarkable. No enlarged lymph nodes. Bones/joints: Thoracic curvature. No fracture. Soft tissues: Unremarkable. Other findings: Mild fat stranding or scarring at the esophagus-gastric junction. CT/CT chest w con* [id number] IMPRESSION: 1. Centrilobular opacities in the right lower lobe could represent endobronchial infection or aspiration. 2. Esophagectomy with gastric pull-through procedure. Mild fat stranding at the anastomosis is most likely normal postsurgical scarring.
[2021-10-12] MEDS: iohexol 300 mg/mL 100 mL Btl IV (17:26)
[2021-10-12 17:41] LABS: Iron 135 ug/dL (59-158); Percent Saturation 41.5 % (20-50); Total Iron Binding Capacity 325 mcg/dl; Unsaturated Iron Binding 190 ug/dL (112-347)
--- NOTE | 2021-10-12 17:48 | P.CONIM_ITS ---
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 Requesting Physician: Dr. Hidalgo Attending Physician: Dr. 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 Patient had his chemotherapy session yesterday at [facility] and he was doing fine until today morning. He had 5-6 episodes of violent bursts of cough with fresh blood about 1 table spoonful. Currently being treated by his primary care physician for his sinusitis and he still complains of nasal congestion although it improved in last 2 weeks after course of antibiotics. Exactly 1 y ear ago, patient presented to emergency room with hemoptysis and bronchoscopy at that time showed exophytic mass (possibly from infiltrating adenocarcinoma of esophagus ) seen marginated from posterior tracheal membrane at the level of about 3.5 to 4 cm below vocal cords with associated 85 to 90% occlusion of the lumen. With a history of infiltrating adenocarcinoma of lower third of esophagus-he was transferred to [facility] for tumor debulking by interventional pulmonology. As per patient and his -he has to undergo tumor debulking second time in January 2021 and since then he did not have any hemoptysis. Also is receiving chemotherapy for his metastatic esophageal cancer at [facility] and they have been following with surveillance CT scans but never mentioned any recurrence of tracheal growth on imaging. CBC revealed a hemoglobin hematocrit remaining stable at 15/47. CT neck showed patent trachea. CT chest did not show any obvious tracheal or endobronchial obstruction but showed mild tree-in-bud opacities in right lower lobe. Also radiology reported noted posterior lumen of gastric pull-through which could represent extravasated contrast from active bleeding or ingested medication. Spoke to radiologist Dr. Kent-there is no evidence of any tracheal or bronchial lesions on the CT. In the absence of history of hematemesis-hyper dense opacity in gastric pull-through may be an ingested medication However Patient's hemoptysis has stopped since he came to emergency room, he was saturating at 97% on room air, not in respiratory distress. Review of Systems General: Reports: 10 or more systems reviewed and unremarkable except in HPI and below Medications/Allergies Home Medications Medication Instructions Recorded Confirmed Last Taken Type timolol 0.5 % eye drops 1 drop OPHTHALMIC (EYE) QDAY 09/19/19 10/05/21 10/13/20 History blood-glucose meter (Accu-Chek #1 each 03/09/20 10/05/21 Unknown Rx Guide Me Glucose Mtr) citalopram 20 mg tablet 20 mg PO DAILY 10/05/20 10/05/21 10/13/20 History varenicline 0.5 mg (11)-1 mg (42) See Rx Instructions PO PER PKG DIR 10/05/20 10/05/21 Unknown Rx tablets in a dose pack (AQUA PUREtiDispop #53 ea Starting Month Box) blood sugar diagnostic (Accu-Chek #100 each 03/22/21 10/05/21 Unknown Rx Guide test strips) mupirocin 2 % topical ointment 1 applic TOPICAL TID #22 g 03/22/21 10/05/21 Unknown Rx glimepiride 4 mg tablet (Amaryl) 4 mg PO BID #60 tab 03/30/21 10/05/21 Unknown Rx fluticasone propionate 50 See Rx Instructions .ROUTE 04/26/21 10/05/21 Unknown Rx mcg/actuation nasal .COMPLEX #16 gram spray,suspension insulin lispro 200 unit/mL (3 mL) 5 - 10 unit (0.025 - 0.05 mL) 05/18/21 10/05/21 Unknown Rx subcutaneous pen (Humalog KwikPen SUBCUT ONCE PRN #6 ml U-200 Insulin) levothyroxine 175 mcg tablet See Rx Instructions .ROUTE 05/31/21 10/05/21 Unknown Rx .COMPLEX #90 tablet nebivolol 10 mg tablet (Bystolic) See Rx Instructions .ROUTE 06/07/21 10/05/21 Unknown Rx .COMPLEX #90 tablet lancets (Accu-Chek Fastclix Lancet See Rx Instructions .ROUTE 06/25/21 10/05/21 Unknown Rx Drum) .COMPLEX #102 ea tamsulosin 0.4 mg capsule See Rx Instructions .ROUTE 07/12/21 10/05/21 Unknown Rx .COMPLEX #180 cap pantoprazole 40 mg tablet,delayed See Rx Instructions .ROUTE 07/28/21 10/05/21 Unknown Rx release .COMPLEX #90 tab pseudoephedrine HCl 120 mg 120 mg PO Q12H #20 tab 08/18/21 10/05/21 Unknown Rx tablet,extended release codeine 10 mg-guaifenesin 100 mg/5 5 ml PO Q6H PRN #120 ml 09/07/21 10/05/21 Unknown Rx mL oral liquid azithromycin 250 mg tablet See Rx Instructions PO .COMPLEX #6 09/28/21 10/05/21 Unknown Rx (Zithromax Z-Aquilino) tab prednisone 20 mg tablet 20 mg PO DAILY #7 tab 09/28/21 10/05/21 Unknown Rx gabapentin 300 mg capsule 300 mg PO DAILY #30 cap 10/01/21 10/05/21 Unknown Rx fluconazole 100 mg tablet See Rx Instructions .ROUTE 10/04/21 10/05/21 Unknown Rx .COMPLEX #60 tab azithromycin 250 mg tablet 250 mg PO DAILY 9 Days #9 tab 10/05/21 10/05/21 Unknown Rx insulin glargine 100 unit/mL (3 See Rx Instructions .ROUTE 10/05/21 10/05/21 Unknown Rx mL) subcutaneous pen (Lantus .COMPLEX #15 ml Solostar U-100 Insulin) Allergies Allergy/AdvReac Type Severity Reaction Status Date / Time morphine Allergy Unknown Verified 10/12/21 18:01 PFSH Acute PFSH: Medical History Acquired hypothyroidism Calcium urolithiasis Candidal UTI (urinary tract infection) Cystitis cystica Diabetes mellitus Esophageal cancer BOTTOM 1/3 OF ESOPHAGUS REMOVED Essential (primary) hypertension Hypertriglyceridemia Hypogonadism Incomplete bladder emptying Microcytic anemia YARED on CPAP Reactive depression Renal calculus, right Surgical History H/O: vasectomy History of esophageal surgery removal of part of esophagus History of esophagogastroduodenoscopy (EGD) Hx of colonoscopy Port-A-Cath in place (02/24/20) S/P cataract surgery S/P ureteral stent placement ESWL S/P wrist surgery Family History Father Heart disease Mother Hypertension Recurrent urinary tract infection Dementia Other Diabetes Social History Smoking and tobacco status: never smoked Quit status (tobacco): not considering quitting Alcohol intake: never Adopted: No Caregiver/support person: No Lives independently: No Household members: spouse Housing: House Marital status: Current occupational status: employed History of recent travel: No Vitals/I&O/Wt Last Vital Signs Temp 98.3 F 10/12/21 15:34 Pulse 67 10/12/21 16:21 Resp 16 10/12/21 16:21 BP 132/66 10/12/21 16:21 Pulse Ox 97 10/12/21 16:21 Weight last 48 hrs Weight 232 lb Physical Exam Narrative: General: alert, NAD HEENT: conj clear, EOMI, PERRL, mmm, Neck: supple, no meningismus Heme: no cervical LAP Pulmonary: CTAB, no wheezing, rhonchi, crackles Cardiovascular: rrr, nl s1s2, no mrg Abdomen: soft, nt, nd, no r/g, bs+ Extremities: pulses +, no edema, no c/c : no CVA tenderness Skin: intact, no rash MSK: no back or neck pain Neurologic: grossly intact Data : 10/12/21 15:18 10/12/21 15:18 Other Labs: Radiology Impressions Chest X-Ray 10/12/21 15:18 IMPRESSION: No acute chest abnormality. Chest CT 10/12/21 16:22 IMPRESSION: 1. Centrilobular opacities in the right lower lobe could represent endobronchial infection or aspiration. 2. Esophagectomy with gastric pull-through procedure. Mild fat stranding at the anastomosis is most likely normal postsurgical scarring. ADDENDUM: 10/12/21 [id number] On images 43-50, series 2, there is hyperdensity in the posterior lumen of the gastric pull-through. This could represent ingested medication. Extravasated contrast from active bleeding could also have this appearance. Neck CT 10/12/21 16:22 IMPRESSION: 1. No acute abnormality of the cervical soft tissues. 2. Incidental/nonacute findings are listed in the report. Laboratory Results WBC 16.2 10^3/uL (4.0-10.0) H 10/12/21 15:18 RBC 5.07 10^6/uL (4.1-5.3) 10/12/21 15:18 Hgb 15.6 g/dL (11.7-16.6) 10/12/21 15:18 Hct 47.6 % (42.0-52.0) 10/12/21 15:18 MCV 93.9 fl (80-94) 10/12/21 15:18 MCH 30.8 pg (28.0-34.0) 10/12/21 15:18 MCHC 32.8 g/dL (30.0-36.0) 10/12/21 15:18 RDW 13.6 % (12.1-15.1) 10/12/21 15:18 Plt Count 249 10^3/cmm (130-400) 10/12/21 15:18 MPV 10.0 fL (7.4-10.4) 10/12/21 15:18 Neut % (Auto) 86.5 % 10/12/21 15:18 Lymph % (Auto) 6.6 % 10/12/21 15:18 Christian % (Auto) 6.3 % 10/12/21 15:18 Eos % (Auto) 0.0 % 10/12/21 15:18 Baso % (Auto) 0.2 % 10/12/21 15:18 Neut # (Auto) 13.98 10^3/uL (1.8-7.7) H 10/12/21 15:18 Lymph # (Auto) 1.1 10^3/uL (0.8-4.8) 10/12/21 15:18 Christian # (Auto) 1.0 10^3/uL (0.2-0.9) H 10/12/21 15:18 Eos # (Auto) 0.0 10^3/uL (0.0-0.8) 10/12/21 15:18 Baso # (Auto) 0.0 10^3/uL (0.0-0.1) 10/12/21 15:18 Nucleated RBC % (auto) 0 % 10/12/21 15:18 Nucleated RBCs # 0.0 /100WBC 10/12/21 15:18 PT 13.80 SECONDS (12.1-14.9) 10/12/21 15:18 INR 1.02 (0.8-1.2) 10/12/21 15:18 APTT 26.0 SECONDS (23.9-36.7) 10/12/21 15:18 Sodium 131 mmol/L (136-145) L 10/12/21 15:18 Potassium 4.3 mmol/L (3.5-5.1) 10/12/21 15:18 Chloride 96 mmol/L (98-107) L 10/12/21 15:18 Carbon Dioxide 21 mmol/L (22-29) L 10/12/21 15:18 Anion Gap 18.3 (5-19) 10/12/21 15:18 BUN 16 mg/dL (6-20) 10/12/21 15:18 Creatinine 0.6 mg/dL (0.7-1.2) L 10/12/21 15:18 GFR Calculation 140.9 mL/min (90-130) H 10/12/21 15:18 Glucose 351 mg/dL (65-115) H 10/12/21 15:18 Calculated Osmolality 287 mOsm/kg (285-295) 10/12/21 15:18 Calcium 10.1 mg/dL (8.5-10.5) 10/12/21 15:18 Iron 135 ug/dL (59-158) 10/12/21 15:18 TIBC 325 mcg/dl 10/12/21 15:18 % Saturation 41.5 % (20-50) 10/12/21 15:18 Unsat Iron Binding 190 ug/dL (112-347) 10/12/21 15:18 Total Bilirubin 0.4 mg/dL (0.15-1.2) 10/12/21 15:18 AST 16 U/L (0-40) 10/12/21 15:18 ALT 22 U/L (0-41) 10/12/21 15:18 Alkaline Phosphatase 107 IU/L (40-130) 10/12/21 15:18 Total Protein 6.9 g/dL (6.6-8.7) 10/12/21 15:18 Albumin 4.2 g/dL (3.5-5.2) 10/12/21 15:18 Globulin 2.7 g/dL (1.3-4.6) 10/12/21 15:18 A&P Assessment and plan (1) Hemoptysis: Status: Acute (2) Aspiration of blood: Status: Acute (3) Adenocarcinoma of esophagus: Status: Acute (4) Tracheal hemorrhage: Status: Acute Plan #Hemoptysis in pt with previous history of metastatic oesophageal ca with traheal invasion s/p debulking of tracheal tumor x 2 last year #History of sinusitis-recently treated with antibiotics and still has nasal congestion #Right lower lobe tree-in-bud on CT-possibly aspiration of blood #Metastatic adenocarcinoma of colon-receiving chemotherapy at [facility] -5-6 episodes of hemoptysis 1 tablespoon next-resolved -CBC-stable H&H at . - CT neck showed patent trachea. - CT chest did not show any obvious tracheal or endobronchial obstruction but showed mild tree-in-bud opacities in right lower lobe. Also radiology reported noted posterior lumen of gastric pull-through which could represent extravasated contrast from active bleeding or ingested medication. Spoke to radiologist Dr. Kent-there is no evidence of any tracheal or bronchial lesions on the CT. In the absence of history of hematemesis-hyper dense opacity in gastric pull- through may be an ingested medication -Patient might have ruptured blood vessel due to cough secondary to postnasal drip -We will admit for overnight observation -Augmentin for sinusitis/aspiration; cough suppressants -N.p.o. after midnight and bronchoscopy for airway inspection tomorrow Everything explained in detail to the patient, his at bedside. They verbalized understanding and agreed with the plan. Hospitalist taking care of the patient. Consult Attestations Medical Necessity Statement: Observation for hemoptysis in patient with history of tracheal tumor Time Spent in Patient Care: Greater than 35 minutes (>than 50% of time spent in counselling and/or direct pt care on unit) . Critical Care Time: The high probability of a clinically significant, sudden or life threatening deterioration of the patient's [respiratory system(s) required my full and direct attention, intervention and personal management. The critical care time is as shown. This time is in addition to time spent performing any reported procedures but includes the following: [x] Data and vital sign review and interpretation [x] Patient assessment, examination and intervention [x] Documentation [x] Medication orders and management Critical Care Time (min): 60 Coding Level of Care Code New Pt Acute Virtual Recruiter for Chg Fwd Patient Type New History Comprehensive Exam Comprehensive Medical Decision Making Moderate Complexity Diagnoses Hemoptysis R04.2 Aspiration of blood Adenocarcinoma of esophagus C15.9 Tracheal hemorrhage J95.01 Time Spent (min) 60
--- NOTE | 2021-10-12 18:04 | P.HP_ITS ---
Providers/Chief Complaint Admitting Physician: Felipe Luna MD Primary Care Provider: Luis Luna MD Chief Complaint: multiple complaints History of Present Illness Ricky Flores is a 55 year old male well-known to me who has a history of esophageal cancer that has been treated with surgery and therapy for quite some time. Exactly 1 year ago he presented with hemoptysis and was evaluated by pulmonology here at [facility]. He was noted to have an invasive adenocarcinoma of the esophagus that was eroding into his trachea. He was transferred to [place] for definitive care and has done very well over the last year. He contacted my office by phone today, stating that the hemoptysis had returned. He said he felt fairly good at first but, has declined through the day and just feels yucky. Since has been here in the ER he has had very little hemoptysis though. Our original plan was to transfer him to [place] for more definitive care assuming that this was invasive tumor into his trachea again. Serendipitously transfer is been difficult and a CT here did not reveal any endobronchial lesions. Our pulmonology service here has elected for us to go ahead and admit him and watch him overnight. With bronchoscopy in the morning. Of note he reports pretty severe sinusitis and have been treating him as an outpatient with oral a. N Is noted to have an elevated white count today Review of Systems General: Reports: 10 or more systems reviewed and unremarkable except in HPI and below Narrative: He denies fever chills nausea vomiting or chest pain or shortness of breath. He does admit to severe sinus pressure with pain in his teeth. Medications/Allergies Home Medications Medication Instructions Recorded Confirmed Last Taken Type timolol 0.5 % eye drops 1 drop OPHTHALMIC (EYE) QDAY 09/19/19 10/05/21 10/13/20 History blood-glucose meter (Accu-Chek #1 each 03/09/20 10/05/21 Unknown Rx Guide Me Glucose Mtr) citalopram 20 mg tablet 20 mg PO DAILY 10/05/20 10/05/21 10/13/20 History varenicline 0.5 mg (11)-1 mg (42) See Rx Instructions PO PER PKG DIR 10/05/20 10/05/21 Unknown Rx tablets in a dose pack (Chantix #53 ea Starting Month Box) blood sugar diagnostic (Accu-Chek #100 each 03/22/21 10/05/21 Unknown Rx Guide test strips) mupirocin 2 % topical ointment 1 applic TOPICAL TID #22 g 03/22/21 10/05/21 Unkn own Rx glimepiride 4 mg tablet (Amaryl) 4 mg PO BID #60 tab 03/30/21 10/05/21 Unknown Rx fluticasone propionate 50 See Rx Instructions .ROUTE 04/26/21 10/05/21 Unknown Rx mcg/actuation nasal .COMPLEX #16 gram spray,suspension insulin lispro 200 unit/mL (3 mL) 5 - 10 unit (0.025 - 0.05 mL) 05/18/21 10/05/21 Unknown Rx subcutaneous pen (Humalog KwikPen SUBCUT ONCE PRN #6 ml U-200 Insulin) levothyroxine 175 mcg tablet See Rx Instructions .ROUTE 05/31/21 10/05/21 Unknown Rx .COMPLEX #90 tablet nebivolol 10 mg tablet (Bystolic) See Rx Instructions .ROUTE 06/07/21 10/05/21 Unknown Rx .COMPLEX #90 tablet lancets (Accu-Chek Fastclix Lancet See Rx Instructions .ROUTE 06/25/21 10/05/21 Unknown Rx Drum) .COMPLEX #102 ea tamsulosin 0.4 mg capsule See Rx Instructions .ROUTE 07/12/21 10/05/21 Unknown Rx .COMPLEX #180 cap pantoprazole 40 mg tablet,delayed See Rx Instructions .ROUTE 07/28/21 10/05/21 Unknown Rx release .COMPLEX #90 tab pseudoephedrine HCl 120 mg 120 mg PO Q12H #20 tab 08/18/21 10/05/21 Unknown Rx tablet,extended release codeine 10 mg-guaifenesin 100 mg/5 5 ml PO Q6H PRN #120 ml 09/07/21 10/05/21 Unknown Rx mL oral liquid azithromycin 250 mg tablet See Rx Instructions PO .COMPLEX #6 09/28/21 10/05/21 Unknown Rx (Zithromax Z-Aquilino) tab prednisone 20 mg tablet 20 mg PO DAILY #7 tab 09/28/21 10/05/21 Unknown Rx gabapentin 300 mg capsule 300 mg PO DAILY #30 cap 10/01/21 10/05/21 Unknown Rx fluconazole 100 mg tablet See Rx Instructions .ROUTE 10/04/21 10/05/21 Unknown Rx .COMPLEX #60 tab azithromycin 250 mg tablet 250 mg PO DAILY 9 Days #9 tab 10/05/21 10/05/21 Unknown Rx insulin glargine 100 unit/mL (3 See Rx Instructions .ROUTE 10/05/21 10/05/21 Unknown Rx mL) subcutaneous pen (Lantus .COMPLEX #15 ml Solostar U-100 Insulin) Allergies Allergy/AdvReac Type Severity Reaction Status Date / Time morphine Allergy Unknown Verified 10/12/21 18:01 PFSH Acute PFSH: Medical History Acquired hypothyroidism Calcium urolithiasis Candidal UTI (urinary tract infection) Cystitis cystica Diabetes mellitus Esophageal cancer BOTTOM 1/3 OF ESOPHAGUS REMOVED Essential (primary) hypertension Hypertriglyceridemia Hypogonadism Incomplete bladder emptying Microcytic anemia YARED on CPAP Reactive depression Renal calculus, right Surgical History H/O: vasectomy History of esophageal surgery removal of part of esophagus History of esophagogastroduodenoscopy (EGD) Hx of colonoscopy Port-A-Cath in place (02/24/20) S/P cataract surgery S/P ureteral stent placement ESWL S/P wrist surgery Family History (System 10/12/21 @ 18:01 by Carlos Eduardo Louise LPN) Father Heart disease Mother Hypertension Recurrent urinary tract infection Dementia Other Diabetes Social History (System 10/12/21 @ 18:01 by Carlos Eduardo Louise LPN) Smoking and tobacco status: never smoked Quit status (tobacco): not considering quitting Alcohol intake: never Adopted: No Caregiver/support person: No Lives independently: No Household members: spouse Housing: House Marital status: Current occupational status: employed History of recent travel: No Physical Exam Narrative: Physical exam he appears a little bit ill, but has absolutely no distress. On examination he appeared in no distress. Vital signs as documented. Skin warm and dry and without overt rashes. Neck without JVD. Lungs clear. Heart exam notable for regular rhythm, normal sounds and absence of murmurs, rubs or gallops. Abdomen unremarkable and without evidence of organomegaly, masses, or abdominal aortic enlargement. 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 He does not bleed anymore overnight or have any more issues then we will plan on a bronchoscopy in the morning. Status: Acute Attestations Medical Necessity Statement*: Barring complication if his bronchoscopy goes well tomorrow expect him to go home tomorrow afternoon. 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
[2021-10-12 18:09] LABS: Add Urine Microscopic? NO; Charge for UA Resulting for Rev
[2021-10-12] MEDS: HYDROmorphone 1 mg/mL INJ 1 mL 0.5 MG IVP ×2 (18:18→21:32)
[2021-10-12 18:32] LABS: Adenovirus Not Detected (NOT DETECT); Chlamydia Pneumoniae Not Detected (NOT DETECT); Coronavirus 229E,HKU1,NL63,OC4 Not Detected (NOT DETECT); Human Metapneumovirus Not Detected (NOT DETECT); Human Rhinovirus/Enterovirus Not Detected (NOT DETECT); Influenza A Not Detected (NOT DETECT); Influenza A H1 Not Detected (NOT DETECT); Influenza A H1-2009 Not Detected (NOT DETECT); Influenza A H3 Not Detected (NOT DETECT); Influenza B Not Detected (NOT DETECT); Mycoplasma Pneumoniae Not Detected (NOT DETECT); Parainfluenza Virus Type 1 Not Detected (NOT DETECT); Parainfluenza Virus Type 2 Not Detected (NOT DETECT); Parainfluenza Virus Type 3 Not Detected (NOT DETECT); Parainfluenza Virus Type 4 Not Detected (NOT DETECT); Respiratory Syncytial Virus A Not Detected (NOT DETECT); Respiratory Syncytial Virus B Not Detected (NOT DETECT); SARS-COV-2 Not Detected (NOT DETECT)
[2021-10-12 18:35] LABS: Bilirubin Urine Neg (Negative); Blood Urine Neg (Negative); Glucose Urine UA 4+ (Normal); Ketones Urine 1+ (Negative); Nitrate Urine Negative (Negative); Protein Urine Neg (Negative); Urine Appearance Clear (CLEAR); Urine Color Yellow (Yellow); pH Urine 6.5 (5-7)
[2021-10-12 18:36] LABS: Leukocyte Esterase Urine Negative (Negative); Urobilinogen Urine Neg (Negative)
[2021-10-12 18:52] LABS: Potassium, Radom Urine 34 mmol/L; Urine Random Chloride 37 mmol/L; Urine Random Sodium 61 mmol/L
[2021-10-12 19:16] LABS: Influenza A Not Detected (NOT DETECT); Influenza A H1 Not Detected (NOT DETECT); Influenza A H1-2009 Not Detected (NOT DETECT); Influenza A H3 Not Detected (NOT DETECT); Influenza B Not Detected (NOT DETECT); Results from Genmark
[2021-10-12] MEDS: fluticasone nasal spray 16gm Btl 2 SPRAY NASAL (19:21)
[2021-10-12] MEDS: guaiFENesin-codeine UDC 10 mL 5 ML PO (19:22)
[2021-10-12] MEDS: pantoprazole 40 mg SDV IVP (19:24)
[2021-10-12] MEDS: sodium chloride 0.9% 1,000 ML 75 ML IV (19:24)
--- NOTE | 2021-10-12 19:37 | PC.NURSE ---
patient states i take my thyroid medication in the morning and usama already had it today. will notify physician. Medication held
[2021-10-12] MEDS: insulin glargine 100 units/1 mL 30 UNIT SUBCUT (21:29)
[2021-10-12] MEDS: ipratropium-albuterol 3 mL Neb INHALATION (21:29)
[2021-10-12] MEDS: insulin lispro 100 unit/1 mL SUBCUT (21:29)
[2021-10-12] MEDS: benzonatate 100 mg Capsule 200 MG PO (21:30)
[2021-10-12] MEDS: tamsulosin 0.4 mg Capsule PO (21:31)
[2021-10-12 22:15] LABS: Glucose Point of Care 320 mg/dL (70-110)
[2021-10-13] VITALS (19 sets, daily range): BP systolic 113–146; BP diastolic 57–85; PULSE 47–96; RESP 16–92; TEMP 36.4–36.8; O2SAT 91–99; BMI 29.7
--- NOTE | 2021-10-13 00:32 | PC.NURSE ---
patients cardiac leads changed and replaced. patient in no obivous distress. Patient denies complaints / concerns at this time. Side rails raised x 2 and bed in low, locked position. call light within reach. patient in no obvious distress.
--- NOTE | 2021-10-13 01:25 | PC.NURSE ---
[id number]- patient instructed of NPO status after midnight. patient states understanding. patient in no obivosu distress. patient sitting up in bed with home C-pap machine on watching tv. patient deneis further needs/complaints at this time.
--- NOTE | 2021-10-13 01:26 | PC.NURSE ---
patient sleeping comfortably in bed this time. even chest rise and fall noted . Patient on home c-pap machine . patinet on athletic monitor. patient in no obvious distress. side rails raisedx 2 and bed in low, lockedposition. [facility]
[2021-10-13] MEDS: HYDROmorphone 1 mg/mL INJ 1 mL 0.5 MG IVP ×5 (03:18→21:47)
[2021-10-13 06:24] LABS: Glucose Point of Care 121 mg/dL (70-110)
[2021-10-13 06:26] LABS: Basophils % 0.3 %; Eosinophils # 0.1 10^3/uL (0.0-0.8); Eosinophils % 0.6 %; Hematocrit 41.4 % (42.0-52.0); Hemoglobin 13.8 g/dL (11.7-16.6); Lymphocytes # 1.3 10^3/uL (0.8-4.8); Lymphocytes % 15.1 %; Mean Corpuscular HGB Conc 33.3 g/dL (30.0-36.0); Mean Platelet Volume 9.7 fL (7.4-10.4); Monocytes # 0.5 10^3/uL (0.2-0.9); Monocytes % 5.7 %; Neutrophils # 6.82 10^3/uL (1.8-7.7); Nucleated Red Blood Cells % 0 %; Platelet Count 201 10^3/cmm (130-400); Red Blood Count 4.45 10^6/uL (4.1-5.3); Red Cell Distribution Width 13.8 % (12.1-15.1); White Blood Count 8.8 10^3/uL (4.0-10.0)
[2021-10-13 06:47] LABS: INR 1.03 (0.8-1.2)
[2021-10-13 06:49] LABS: Alanine Aminotransferase 19 U/L (0-41); Albumin Level 3.7 g/dL (3.5-5.2); Alkaline Phosphatase 83 IU/L (40-130); Anion Gap 15.5 (5-19); Aspartate Amino Transferase 15 U/L (0-40); Blood Urea Nitrogen 14 mg/dL (6-20); Calcium 9.3 mg/dL (8.5-10.5); Carbon Dioxide 24 mmol/L (22-29); Chloride 101 mmol/L (98-107); Globulin 2.2 g/dL (1.3-4.6); Glomerular Filtration Rate 173.9 mL/min (90-130); Glucose 127 mg/dL (65-115); Magnesium 1.7 mg/dL (1.7-2.3); Osmolality Calculated 286 mOsm/kg (285-295); Phosphorus 4.7 mg/dL (2.5-4.5); Potassium 3.5 mmol/L (3.5-5.1); Sodium 137 mmol/L (136-145); Total Bilirubin 0.3 mg/dL (0.15-1.2); Total Protein 5.9 g/dL (6.6-8.7)
[2021-10-13] MEDS: sodium chloride 0.9% 1,000 ML 30 ML IV (09:40)
--- NOTE | 2021-10-13 10:15 | P.ANESASSM_ITS ---
Pre-Anesthetic Assessment Height/Weight: Height 1.91 m Weight 107.774 kg Temp Pulse Resp BP Pulse Ox 97.5 F L 47 L 18 131/69 96 10/13/21 09:37 10/13/21 09:37 10/13/21 09:37 10/13/21 09:37 10/13/21 09:37 Preop Diagnosis: Esophageal cancer Operation Date: 10/13/21 10:10 Proposed Procedures p Bronchoscopy(Not Applicable) - Nico Hare MD Familial anesthetic complications: None Was Beta Naun taken within 24 hours: Yes Was Clonidine taken within 24 hours: N/A Last intake: Intake Last Liquid Date 10/12/21 Last Liquid Time 23:55 Last Solid Date 10/12/21 Last Solid Time 18:00 Social No alcohol and No tobacco Exam alert, oriented x 3, clear to auscultation bilaterally and regular rate & rhythm Airway Submandibular: within normal limits Cervical ROM: within normal limits Mallampati: Class III Dentition: full Comments: Comments: h/o head and neck radiation Pulmonary Cough (hemoptysis) and Sleep Apnea Esophogeal CA s/p esophagectomy, radiation/chemo, paratracheal lymphnode with encroachment on upper trachea, no stidor CV/HEM Hypertension GI Gastroesophageal Reflux Disease Metabolic Diabetes Mellitus, Morbid Obesity and Thyroid Disease Neuropsych Anxiety and Depression Anesthetic Plan ASA status: 3 Anesthesia: General Risk of > 500 ml blood loss (7ml/kg in children): No Medications/Allergies Home Medications Medication Instructions Recorded Confirmed Last Taken Type timolol 0.5 % eye drops 1 drop OPHTHALMIC (EYE) QDAY 09/19/19 10/05/21 10/13/20 History blood-glucose meter (Accu-Chek #1 each 03/09/20 10/05/21 Unknown Rx Guide Me Glucose Mtr) citalopram 20 mg tablet 20 mg PO DAILY 10/05/20 10/05/21 10/13/20 History varenicline 0.5 mg (11)-1 mg (42) See Rx Instructions PO PER PKG DIR 10/05/20 10/05/21 Unknown Rx tablets in a dose pack (Chantix #53 ea Starting Month Box) blood sugar diagnostic (Accu-Chek #100 each 03/22/21 10/05/21 Unknown Rx Guide test strips) mupirocin 2 % topical ointment 1 applic TOPICAL TID #22 g 03/22/21 10/05/21 Unknown Rx glimepiride 4 mg tablet (Amaryl) 4 mg PO BID #60 tab 03/30/21 10/05/21 Unknown Rx fluticasone propionate 50 See Rx Instructions .ROUTE 04/26/21 10/05/21 Unknown Rx mcg/actuation nasal .COMPLEX #16 gram spray,suspension insulin lispro 200 unit/mL (3 mL) 5 - 10 unit (0.025 - 0.05 mL) 05/18/21 10/05/21 Unknown Rx subcutaneous pen (Humalog KwikPen SUBCUT ONCE PRN #6 ml U-200 Insulin) levothyroxine 175 mcg tablet See Rx Instructions .ROUTE 05/31/21 10/05/21 Unknown Rx .COMPLEX #90 tablet nebivolol 10 mg tablet (Bystolic) See Rx Instructions .ROUTE 06/07/21 10/05/21 Unknown Rx .COMPLEX #90 tablet lancets (Accu-Chek Fastclix Lancet See Rx Instructions .ROUTE 06/25/21 10/05/21 Unknown Rx Drum) .COMPLEX #102 ea tamsulosin 0.4 mg capsule See Rx Instructions .ROUTE 07/12/21 10/05/21 Unknown Rx .COMPLEX #180 cap pantoprazole 40 mg tablet,delayed See Rx Instructions .ROUTE 07/28/21 10/05/21 Unknown Rx release .COMPLEX #90 tab pseudoephedrine HCl 120 mg 120 mg PO Q12H #20 tab 08/18/21 10/05/21 Unknown Rx tablet,extended release codeine 10 mg-guaifenesin 100 mg/5 5 ml PO Q6H PRN #120 ml 09/07/21 10/05/21 Unknown Rx mL oral liquid azithromycin 250 mg tablet See Rx Instructions PO .COMPLEX #6 09/28/21 10/05/21 Unknown Rx (Zithromax Z-Aquilino) tab prednisone 20 mg tablet 20 mg PO DAILY #7 tab 09/28/21 10/05/21 Unknown Rx gabapentin 300 mg capsule 300 mg PO DAILY #30 cap 10/01/21 10/05/21 Unknown Rx fluconazole 100 mg tablet See Rx Instructions .ROUTE 10/04/21 10/05/21 Unknown Rx .COMPLEX #60 tab azithromycin 250 mg tablet 250 mg PO DAILY 9 Days #9 tab 10/05/21 10/05/21 Unknown Rx insulin glargine 100 unit/mL (3 See Rx Instructions .ROUTE 10/05/21 10/05/21 Unknown Rx mL) subcutaneous pen (Lantus .COMPLEX #15 ml Solostar U-100 Insulin) Allergies Allergy/AdvReac Type Severity Reaction Status Date / Time morphine Allergy Unknown Verified 10/12/21 18:01 Current Medications Generic Name Dose Route Start Last Admin Trade Name Freq PRN Reason Stop Dose Admin Benzonatate 200 mg 10/12/21 21:00 10/12/21 21:30 Benzonatate 100 Mg Capsule PO 200 mg TID ROSAS Administration Fluticasone Propionate 2 spray 10/12/21 18:00 10/12/21 19:21 Fluticasone Nasal [place] 16gm Btl NASAL 2 spray BID ROSAS Administration Guaifenesin/Codeine Phosphate 5 ml 10/12/21 18:00 10/13/21 05:22 Guaifenesin-Codeine Udc 10 Ml PO Not Given Q12H ROSAS Hydromorphone HCl 0.5 mg 10/12/21 20:53 10/13/21 07:27 Hydromorphone 1 Mg/Ml Inj 1 Ml IVP 0.5 mg Q4H PRN Administration PAIN Sodium Chloride 1,000 mls @ 75 mls/hr 10/12/21 18:00 10/12/21 19:24 Sodium Chloride 0.9% IV 75 mls/hr .[id number] ROSAS Administration Sodium Chloride 1,000 mls @ 30 mls/hr 10/13/21 09:30 10/13/21 09:40 Sodium Chloride 0.9% IV 10/14/21 09:29 30 mls/hr .Q24H ROSAS Administration Insulin Glargine 30 unit 10/12/21 21:00 10/12/21 21:29 Insulin Glargine 100 Units/1 Ml SUBCUT 30 unit BEDTIME ROSAS Administration Insulin Human Lispro 0 unit 10/12/21 21:00 10/12/21 21:29 Insulin Lispro 100 Unit/1 Ml SUBCUT 12 unit WM&BEDTIME ROSAS Administration Protocol Levothyroxine Sodium 175 mcg 10/12/21 18:45 10/12/21 19:37 Levothyroxine 175 Mcg Tablet PO Not Given DAILY ROSAS Pantoprazole Sodium 40 mg 10/12/21 18:00 10/12/21 19:24 Pantoprazole 40 Mg Sdv IVP 40 mg Q24H ROSAS Administration Tamsulosin HCl 0.4 mg 10/12/21 21:00 10/12/21 21:31 Tamsulosin 0.4 Mg Capsule PO 0.4 mg BID@0900,2100 ROSAS Administration PFSH Anesthesia Medical History Acquired hypothyroidism Calcium urolithiasis Candidal UTI (urinary tract infection) Cystitis cystica Diabetes mellitus Esophageal cancer BOTTOM 1/3 OF ESOPHAGUS REMOVED Essential (primary) hypertension Hypertriglyceridemia Hypogonadism Incomplete bladder emptying Microcytic anemia YARED on CPAP Reactive depression Renal calculus, right Surgical History H/O: vasectomy History of esophageal surgery removal of part of esophagus History of esophagogastroduodenoscopy (EGD) Hx of colonoscopy Port-A-Cath in place (02/24/20) S/P cataract surgery S/P ureteral stent placement ESWL S/P wrist surgery Family History Father Heart disease Mother Hypertension Recurrent urinary tract infection Dementia Other Diabetes Social History Smoking and tobacco status: never smoked Quit status (tobacco): not considering quitting Alcohol intake: never Adopted: No Caregiver/support person: No Lives independently: No Household members: spouse Housing: House Marital status: Current occupational status: employed History of recent travel: No Data Anesthesia : 10/13/21 06:15 10/13/21 06:15 Short CBC 10/12/21 10/13/21 Range/Units 15:18 06:15 WBC 16.2 H 8.8 (4.0-10.0) 10^3/uL Hgb 15.6 13.8 (11.7-16.6) g/dL Hct 47.6 41.4 L (42.0-52.0) % MCV 93.9 93.0 (80-94) fl Plt Count 249 201 (130-400) 10^3/cmm Neut % (Auto) 86.5 78.0 % Neut # (Auto) 13.98 H 6.82 (1.8-7.7) 10^3/uL BMP 10/12/21 10/13/21 15:18 06:15 Sodium 131 L 137 Potassium 4.3 3.5 Chloride 96 L 101 Carbon Dioxide 21 L 24 BUN 16 14 Creatinine 0.6 L 0.5 L Glucose 351 H 127 H Calcium 10.1 9.3 Liver Function 10/12/21 10/13/21 Range/Units 15:18 06:15 Total Bilirubin 0.4 0.3 (0.15-1.2) mg/dL AST 16 15 (0-40) U/L ALT 22 19 (0-41) U/L Alkaline Phosphatase 107 83 (40-130) IU/L Albumin 4.2 3.7 (3.5-5.2) g/dL Urine 10/12/21 Range/Units 17:45 Urine Color Yellow (Yellow) Urine Appearance Clear (CLEAR) Urine pH 6.5 (5-7) Ur Specific [place] 1.010 (1.005-1.030) Urine Protein Neg (Negative) Urine Glucose (UA) 4+ H (Normal) Urine Ketones 1+ H (Negative) Urine Nitrate Negative (Negative) Urine Bilirubin Neg (Negative) Ur Leukocyte Esterase Negative (Negative) Blood Bank 10/12/21 17:48 Blood Type O Positive Rho(D) Type Positive COVID Results 10/12/21 16:19 Coronavirus 229E (PCR) Not detected SARS-CoV-2 (PCR) Not detected Coags 10/12/21 10/13/21 15:18 06:15 PT 13.80 13.80 INR 1.02 1.03 APTT 26.0 Cardiac Studies: No Data to Display
--- NOTE | 2021-10-13 10:19 | PC.CHAP ---
Pastoral Care Encounter/Spiritual Assessment Type of Contact [] Declined correctional program officer visit [] Patient/Family/Request visit [] Outpatient visit [] Follow-up visit [] Physician referral [] Code/Alert [x] Routine visit [] Staff referral [] Actively dying [x] Patient sleeping [] Family support [] [] Out of room [] Palliative care [] [] Receiving care in room [] Pre-surgical visit [] Trauma [] Long length of stay [] ICU visit [] Other: Relational/Emotional Strength [] Patient feels connected with others/family/visitors/staff [] Distress [] Loneliness/isolation [] Abandonment Spirituality of Patient [] Person of Michelle [] Attends [facility] of their Michelle [] Believes in Prayer [] Reads Bible or Restorationist materials [] There are Spiritual issues to be addressed Medical Physiologist Interventions [] Prayer [] Active listening [] Non-anxious presence [] Spiritual/emotional support [] Crisis/trauma care [] Spiritual counseling [] Bereavement support [] Provided bereavement packet [] Provided Bible/devotional materials [] Provided toy/stuffed animal, coloring book to patient or family member [] Provided Communion [] Anointing/[place] [] Salvation [] Completed spiritual assessment [] Other: Impact on Illness or Injury [] Angry [] Fearful [] Anxious [] Often cries [] Exhaustion [] Unable to work [] Unable to attend scientologist [] Unable to walk/stand [] Unable to read [] Unable to drive [] Unable to eat/drink [] Unable to sleep [] Unable to be with family [] Patient intubated [] Other: Summary Time spent with patient
[2021-10-13] MEDS: lidocaine 1% INJ 20 mL XX (10:32)
--- NOTE | 2021-10-13 10:54 | XR_ITS ---
WS: [id number] CHEST XRAY TECHNIQUE: Portable chest. CLINICAL INFORMATION: POST BRONCHOSCOPY, F/U CXR FROM 10/12 COMPARISON: None. FINDINGS: LEFT Port-A-Cath with tip in the mid SVC. No pneumothorax. Prior esophagectomy with gastric pull-through. Heart: Cardiomegaly. Lungs: Both lungs are well aerated. RIGHT lower lobe pulmonary infiltrate seen on the recent CT not w ell visualized on this study. No new infiltrates. Bones: Normal visualized bony structures. XR/XR chest 1V portable [id number] IMPRESSION: 1. Both lungs are well aerated. No pneumothorax. 2. RIGHT lower lobe pulmonary infiltrate seen on the recent CT not well visual ized on this study. No new infiltrates.
--- NOTE | 2021-10-13 11:21 | P.PCN_ITS ---
PACU note Narrative: VSS, Good respiratory effort, report to BOX TRUCK WASHER Exam: awake
--- NOTE | 2021-10-13 11:21 | PM.PACU ---
PACU note Narrative: VSS, Good respiratory effort, report to BRAKE LINER Exam: awake
--- NOTE | 2021-10-13 12:18 | PM.OP ---
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 Quintana twice in 2020-presented to ER on 10/13/2021 for 1 table spoonful of hemoptysis-bright red blood. Patient had his chemotherapy session yesterday 10/11/2021 at [facility] and he was doing fine the morning of admission.? He had 5-6 episodes of violent bursts of cough with fresh blood about 1 table spoonful.? Currently being treated by his primary care physician for his sinusitis and he still complains of nasal congestion although it improved in last 2 weeks after course of antibiotics.? Exactly 1 year ago, patient presented to emergency room with hemoptysis and bronchoscopy at that time showed exophytic mass (possibly from infiltrating adenocarcinoma of esophagus ) seen marginated from posterior tracheal membrane at the level of about 3.5 to 4 cm below vocal cords with associated 85 to 90% occlusion of the lumen.? With a history of infiltrating adenocarcinoma of lower third of esophagus-he was transferred to [facility] for tumor debulking by interventional pulmonology.? As per patient and his -he has to undergo tumor debulking second time in January 2021 and since then he did not have any hemoptysis.? Also is receiving chemotherapy for his metastatic esophageal cancer at [facility] and they have been following with surveillance CT scans but never mentioned any recurrence of tracheal growth on imaging. CBC revealed a hemoglobin hematocrit remaining stable at 15/47.? CT neck showed patent trachea.? CT chest did not show any obvious tracheal or endobronchial obstruction but showed mild tree-in-bud opacities in right lower lobe.? Also radiology reported noted posterior lumen of gastric pull-through which could represent extravasated contrast from active bleeding or ingested medication.? Spoke to radiologist Dr. Kent-there is no evidence of any tracheal or bronchial lesions on the CT.? In the absence of history of hematemesis-hyper dense opacity in gastric pull-through may be an ingested medication. He was admitted for overnight observation and if he continues to have hemoptysis plan was to do bronchoscopy. He was started on Augmentin for aspiration and sinusitis. Today morning patient reported having about 2 tablespoonfuls of bright red blood triggered by coughing while lying down on bed. CBC today morning showed H&H -compared to admission yesterday evening, platelet counts greater than 200 K, INR 1.03, He was receiving IV fluids as well. he was taken to the OR for bronchoscopic inspection of airways. Procedure: Procedure: Flexible bronchoscopy with airway inspection, airway clearance of secretions and obtaining bronchoalveolar lavage sample,, control of bleeding Pre-Operative Diagnosis: Hemoptysis in patient with previous history of tracheal infiltration of esophageal cancer Post-Operative Diagnosis: Possible bronchial artery bleeding Indication: Bright red hemoptysis-2 tablespoonfuls overnight Anesthesia: Managed as per anesthesia team Pre-procedure Evaluation: Patient was evaluated clinically and ancillary testing reviewed. The risk of having active MTB infection is very low in my clinical judgement. ASA: 3 Consent: Consents were obtained from patient and placed in the chart Procedure Details: Time out was performed by the procedure team and nursing staff. Vent support maintained on Fio2 100. The bronchoscope was introduced through the laryngeal mask airway. A bronchoscopic airway exam was performed to evaluate the visible tracheobronchial tree to the segmental level. Summary of Significant Findings: -Bronchoscope passed through laryngeal mask airway, 6 ml 1% lidocaine on the glottis, vocal cords were mobile and normal. Initially there was some spasm but eventually was able to pass the scope through the vocal cords. Noted bright red bloody secretions throughout the trachea and bilateral mainstem bronchi. Patent trachea with no endotracheal lesions noted. 2 mL each of 1% lidocaine instilled into the trachea. Distal trachea and main mat visualized which were sharp and normal. After instilling 2 mL of 1% lidocaine in the right mainstem bronchus and left mainstem bronchus, the scope was passed through the right bronchial tree was assessed to include the right mainstem bronchus, RBI, and RUL/RML/RLL bronchi to the segmental and subsegmental levels. Mucosa appeared normal with no endobronchial lesions There was bright red blood in all segments and subsegments-which was cleared with normal saline and suctioned away. Then the scope was left bronchial tree was assessed to include the left mainstem bronchus, GORDO, Lingula, and LLL bronchi to the segmental and subsegmental level. No active bleeding noted. Mucosa appeared normal with no endobronchial lesions. Again bright red blood was noted in the mainstem, segment and subsegments. clear secretions noted which were suctioned right away. Slow active bleeding noted from left upper lobe. Instilled cold saline. Did not see any AVM malformations. BAL obtained from right middle lobe the bronchoscope was then removed and the procedure terminated. Estimated Blood Loss: 5 to 10 mL Specimens: Bronchoalveolar lavage was taken from right middle lobe and sent for microbiology cultures. Complications:None; patient tolerated the procedure well. Disposition: Patient sent to [facility]. Yesterday patient had CT chest with contrast which did not show any active bleeding in large airways. There is no evidence of bronchiectasis or any pulmonary lesions on CT. Likely cryptogenic hemoptysis. Informed hospitalist taking care of the patient-with slow active bleeding-he may need CT arteriogram and angiographic embolization of bleeding vessel and may need to be transferred to tertiary center. I am going to discuss the findings with patient and his once patient is out of sedation. Nico Hare MD Pulmonary critical Care Medicine [facility] Related Problem List Diagnoses (1) History of esophageal cancer: (2) Hemoptysis: (3) Aspiration of blood:
--- NOTE | 2021-10-13 12:19 | PM.PN ---
Subjective Subjective: No events overnight. Patient did not have any further episodes of hemoptysis. Has remained hemodynamically stable and afebrile. Continues to remain on room air. Today morning seen post bronchoscopy. Bronchoscopy results appreciated. Awaiting transfer to [facility] for further management. Vitals/I&O/Wt Last Vital Signs Temp 97.8 F 10/13/21 11:08 Pulse 65 10/13/21 11:23 Resp 18 10/13/21 11:23 BP 116/61 10/13/21 11:23 Pulse Ox 98 10/13/21 11:23 10/12/21 10/13/21 10/13/21 22:59 06:59 14:59 Intake Total 700 / 700 Output Total 0 / 0 Balance 700 / 700 Weight last 48 hrs Weight 107.774 kg Weight 107.774 kg Weight 105.233 kg Physical Exam Narrative: General: alert, NAD HEENT: conj clear, EOMI, PERRL, mmm, Neck: supple, no meningismus Heme: no cervical LAP Pulmonary: CTAB, no wheezing, rhonchi, crackles Cardiovascular: rrr, nl s1s2, no mrg Abdomen: soft, nt, nd, no r/g, bs+ Extremities: pulses +, no edema, no c/c : no CVA tenderness Skin: intact, no rash MSK: no back or neck pain Neurologic: grossly intact Data : 10/13/21 06:15 10/13/21 06:15 A&P Assessment and plan (1) Hemoptysis: Status: Acute (2) Aspiration of blood: Status: Acute (3) Adenocarcinoma of esophagus: Status: Acute (4) Tracheal hemorrhage: Status: Acute (5) Diabetes mellitus: Status: Acute (6) Essential (primary) hypertension: Status: Acute Plan Hemoptysis: History of metastatic adenocarcinoma of esophagus with localized invasion of the trachea. Seen post bronchoscopy. Verbally told there is a concern of right oozing of bright red blood from left upper lobe. We will continue to monitor hemodynamics. Hemoglobin and hematocrit every 12 hourly. Telemetry. Continue with aggressive cough suppression with Tessalon Perles and Robitussin with codeine. Flonase. DuoNebs every 6 hour. Continue with home dose of prednisone. Currently getting infusion of 5-FU which has been prescribed to him through oncology service. Will continue as per plan. Anemia: Hemoglobin is slightly lower than yesterday. Could be dilutional. Monitor hemoglobin every 12 hourly. Stop IV fluids. Continue with Augmentin for possible bronchitis versus pneumonia from aspirated blood. Found to have consolidation in right lower lobe on CT imaging. Type 2 diabetes mellitus: Insulin sliding scale. Hold off on OHA's. Hypertension: Goal blood pressure less than 140/90 mmHg. Takes metoprolol at home. For now hold off. Full code. N.p.o. for now. Afterwards start him on carb consistent cardiac diet. Protonix for PUD prophylaxis. SCDs for DVT prophylaxis. Hold off on pharmacological prophylaxis. Patient will need to be transferred to [facility] for further management of ongoing hemoptysis in setting of metastatic adenocarcinoma of esophagus with possible oozing of blood at left upper lobe. Patient is on waitlist at [facility]. Awaiting bed. Continue to monitor hemodynamics. Attestations Medical Necessity Statement*: Requires further hospitalization for evaluation and management of hemoptysis in a patient with adenocarcinoma of the esophagus locally metastasized to trachea Time Spent in Patient Care: Greater than 35 minutes Coding Level of Care Code Acute Solution Architect for g Fwd Diagnoses Hemoptysis R04.2 Aspiration of blood Adenocarcinoma of esophagus C15.9 Tracheal hemorrhage J95.01 Diabetes mellitus E11.9 Essential (primary) hypertension I10
--- NOTE | 2021-10-13 12:30 | ANE.PACU2 ---
Inpatient post-anesthesia follow up: Airway intact: Yes Vital signs: Temperature 97.8 F Pulse Rate 65 Respiratory Rate 18 Blood Pressure 116/61 Pulse Oximetry 98 Oxygen Delivery Me thod Simple Mask Oxygen Flow Rate 8 Fraction of Inspir ed Oxygen Hydration adequate: Yes Nausea and vomiting: No Pain level: 2 Mental status: Baseline
[2021-10-13] MEDS: fluticasone nasal spray 16gm Btl 2 SPRAY NASAL ×2 (13:34→18:03)
--- NOTE | 2021-10-13 14:57 | PM.PN ---
Subjective Subjective: -Patient seen at bedside multiple times today -Morning reported having cough when he was lying down and had hemoptysis with bright red blood about 2 tablespoonfuls -He was n.p.o.-and I did bronchoscopy with general anesthesia and LMA-there was no endotracheal or endobronchial lesions but bright red blood was seen spilled in all airways. After suctioning with saline wash-noted slow oozing bright red blood from left upper lobe. I did not see any AVM. -H&H today morning 13.8/41 from 15.647 during yesterday's admission-partly due to hemodilution as patient is getting IV fluids -Patient is comfortable and saturating 98% on room air -Other labs and imaging reviewed Medications: Reviewed: Yes Vitals/I&O/Wt Last Vital Signs Temp 97.5 F L 10/13/21 13:00 Pulse 50 L 10/13/21 13:00 Resp 18 10/13/21 13:39 BP 125/74 10/13/21 13:00 Pulse Ox 93 10/13/21 13:00 10/12/21 10/13/21 10/13/21 22:59 06:59 14:59 Intake Total 1600 / 1600 Output Total 0 / 0 Balance 1600 / 1600 Weight last 48 hrs Weight 237 lb 9.6 oz Weight 237 lb 9.6 oz Weight 232 lb Physical Exam Narrative: General: alert, NAD HEENT: conj clear, EOMI, PERRL, mmm, Neck: supple, no meningismus Heme: no cervical LAP Pulmonary: CTAB, no wheezing, rhonchi, crackles Cardiovascular: rrr, nl s1s2, no mrg Abdomen: soft, nt, nd, no r/g, bs+ Extremities: pulses +, no edema, no c/c : no CVA tenderness Skin: intact, no rash MSK: no back or neck pain Neurologic: grossly intact Data : 10/13/21 06:15 10/13/21 06:15 Other Labs: Radiology Impressions Neck CT 10/12/21 00:00 IMPRESSION: 1. No acute abnormality of the cervical soft tissues. 2. Incidental/nonacute findings are listed in the report. Chest CT 10/12/21 16:22 IMPRESSION: 1. Centrilobular opacities in the right lower lobe could represent endobronchial infection or aspiration. 2. Esophagectomy with gastric pull-through procedure. Mild fat stranding at the anastomosis is most likely normal postsurgical scarring. ADDENDUM: 10/12/21 1803 On images 43-50, series 2, there is hyperdensity in the posterior lumen of the gastric pull-through. This could represent ingested medication. Extravasated contrast from active bleeding could also have this appearance. ADDENDUM: 10/12/21 1820 THIS REPORT CONTAINS FINDINGS THAT MAY BE CRITICAL TO PATIENT CARE. The findings were verbally communicated via telephone conference with JULINAA REVELES and Dr Hare at 6:18 PM AMBULATORY NURSE on 10/12/2021. The findings were acknowledged and understood. The fat stranding extending from the gastric pull-through anastomosis along the posterior right trachea could represent postsurgical scarring and/or residual tumor. There is no visible lesion invading the trachea or bronchi. No active bleeding is visualized within the large airways. Chest X-Ray 10/13/21 10:54 IMPRESSION: 1. Both lungs are well aerated. No pneumothorax. 2. RIGHT lower lobe pulmonary infiltrate seen on the recent CT not well visualized on this study. No new infiltrates. Laboratory Results WBC 8.8 10^3/uL (4.0-10.0) 10/13/21 06:15 RBC 4.45 10^6/uL (4.1-5.3) 10/13/21 06:15 Hgb 13.8 g/dL (11.7-16.6) 10/13/21 06:15 Hct 41.4 % (42.0-52.0) L 10/13/21 06:15 MCV 93.0 fl (80-94) 10/13/21 06:15 MCH 31.0 pg (28.0-34.0) 10/13/21 06:15 MCHC 33.3 g/dL (30.0-36.0) 10/13/21 06:15 RDW 13.8 % (12.1-15.1) 10/13/21 06:15 Plt Count 201 10^3/cmm (130-400) 10/13/21 06:15 MPV 9.7 fL (7.4-10.4) 10/13/21 06:15 Neut % (Auto) 78.0 % 10/13/21 06:15 Lymph % (Auto) 15.1 % 10/13/21 06:15 [place] % (Auto) 5.7 % 10/13/21 06:15 Eos % (Auto) 0.6 % 10/13/21 06:15 Baso % (Auto) 0.3 % 10/13/21 06:15 Neut # (Auto) 6.82 10^3/uL (1.8-7.7) 10/13/21 06:15 Lymph # (Auto) 1.3 10^3/uL (0.8-4.8) 10/13/21 06:15 [place] # (Auto) 0.5 10^3/uL (0.2-0.9) 10/13/21 06:15 Eos # (Auto) 0.1 10^3/uL (0.0-0.8) 10/13/21 06:15 Baso # (Auto) 0.0 10^3/uL (0.0-0.1) 10/13/21 06:15 Nucleated RBC % (auto) 0 % 10/13/21 06:15 Nucleated RBCs # 0.0 /100WBC 10/13/21 06:15 PT 13.80 SECONDS (12.1-14.9) 10/13/21 06:15 INR 1.03 (0.8-1.2) 10/13/21 06:15 APTT 26.0 SECONDS (23.9-36.7) 10/12/21 15:18 Sodium 137 mmol/L (136-145) 10/13/21 06:15 Potassium 3.5 mmol/L (3.5-5.1) 10/13/21 06:15 Chloride 101 mmol/L (98-107) 10/13/21 06:15 Carbon Dioxide 24 mmol/L (22-29) 10/13/21 06:15 Anion Gap 15.5 (5-19) 10/13/21 06:15 BUN 14 mg/dL (6-20) 10/13/21 06:15 Creatinine 0.5 mg/dL (0.7-1.2) L 10/13/21 06:15 GFR Calculation 173.9 mL/min (90-130) H 10/13/21 06:15 Glucose 127 mg/dL (65-115) H 10/13/21 06:15 POC Glucose 121 mg/dL (70-110) H 10/13/21 06:21 Calculated Osmolality 286 mOsm/kg (285-295) 10/13/21 06:15 Calcium 9.3 mg/dL (8.5-10.5) 10/13/21 06:15 Phosphorus 4.7 mg/dL (2.5-4.5) H 10/13/21 06:15 Magnesium 1.7 mg/dL (1.7-2.3) 10/13/21 06:15 Iron 135 ug/dL (59-158) 10/12/21 15:18 TIBC 325 mcg/dl 10/12/21 15:18 % Saturation 41.5 % (20-50) 10/12/21 15:18 Unsat Iron Binding 190 ug/dL (112-347) 10/12/21 15:18 Total Bilirubin 0.3 mg/dL (0.15-1.2) 10/13/21 06:15 AST 15 U/L (0-40) 10/13/21 06:15 ALT 19 U/L (0-41) 10/13/21 06:15 Alkaline Phosphatase 83 IU/L (40-130) 10/13/21 06:15 Total Protein 5.9 g/dL (6.6-8.7) L 10/13/21 06:15 Albumin 3.7 g/dL (3.5-5.2) 10/13/21 06:15 Globulin 2.2 g/dL (1.3-4.6) 10/13/21 06:15 Urine Color Yellow (Yellow) 10/12/21 17:45 Urine Appearance Clear (CLEAR) 10/12/21 17:45 Urine pH 6.5 (5-7) 10/12/21 17:45 Ur Specific [place] 1.010 (1.005-1.030) 10/12/21 17:45 Urine Protein Neg (Negative) 10/12/21 17:45 Urine Glucose (UA) 4+ (Normal) H 10/12/21 17:45 Urine Ketones 1+ (Negative) H 10/12/21 17:45 Urine Blood Neg (Negative) 10/12/21 17:45 Urine Nitrate Negative (Negative) 10/12/21 17:45 Urine Bilirubin Neg (Negative) 10/12/21 17:45 Urine Urobilinogen Neg mg/dL (Negative) 10/12/21 17:45 Ur Leukocyte Esterase Negative (Negative) 10/12/21 17:45 Ur Random Sodium 61 mmol/L 10/12/21 17:45 Ur Random Potassium 34 mmol/L 10/12/21 17:45 Ur Random Chloride 37 mmol/L 10/12/21 17:45 Nasal Influ A H1 2009 PCR Not detected (NOT DETECT) 10/12/21 16:19 Coronavirus 229E (PCR) Not detected (NOT DETECT) 10/12/21 16:19 Influenza A (H1) PCR Not detected (NOT DETECT) 10/12/21 16:19 Influenza A (H3) PCR Not detected (NOT DETECT) 10/12/21 16:19 Influenza Type A (PCR) Not detected (NOT DETECT) 10/12/21 16:19 Influenza Type B (PCR) Not detected (NOT DETECT) 10/12/21 16:19 SARS-CoV-2 (PCR) Not detected (NOT DETECT) 10/12/21 16:19 Blood Type O Positive 10/12/21 17:48 Rho(D) Type Positive 10/12/21 17:48 A&P Assessment and plan (1) History of esophageal cancer: Status: Acute (2) Hemoptysis: Status: Acute (3) Aspiration of blood: Status: Acute Plan #Hemoptysis in pt with 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 -5-6 episodes of hemoptysis 1 tablespoon on the day of admission ; CT neck 10/12/[address] chest 10/12/2021 did not show any obvious tracheal or endobronchial obstruction but showed mild tree-in-bud opacities in right lower lobe. No evidence of bronchiectasis or tumors. Also radiology reported noted posterior lumen of gastric pull-through which could represent extravasated contrast from active bleeding or ingested medication. Spoke to radiologist Dr. Kent-there is no evidence of any tracheal or bronchial lesions on the CT. in the absence of history of hematemesis-hyper dense opacity in gastric pull-through may be an ingested medication. -Patient continues to have on and off hemoptysis while coughing - bright red blood and 2 tablespoon of blood-especially yesterday night while he was lying down. I took over to do bronchoscopy 10/13/2021 under general anesthesia and LMA-there were no endotracheal or endobronchial lesions but bright red blood was seen spilled in all airways. After suctioning with saline wash-noted slow oozing bright red blood from left upper lobe. I did not see any AVM. -H&H today morning 13.8/41 from 15.6/47 during yesterday's admission-partly due to hemodilution as patient is getting IV fluids-monitor H&H. Patient has normal platelets greater than 200 K and normal coagulation profile with INR 1.03 - Patient might have ruptured blood vessel due to cough secondary to postnasal drip/GERD -Currently is on Augmentin for sinusitis/aspiration; cough suppressants -Patient with recurrent hemoptysis-no evidence of bronchiectasis/suspicious masses/nodules/PE/AVM on CT with contrast; flexible bronchoscopy with no evidence of endotracheal or endobronchial lesions, normal mucosa, no obvious AVMs -I suspect cryptogenic hemoptysis -and recommended to transfer to higher facility for pulmonary angiography to identify culprit vessel and possible IR guided embolization. Everything explained in detail to the patient, his at bedside. They verbalized understanding and agreed with the plan. Hospitalist taking care of the patient. Attestations Medical Necessity Statement*: Need close monitoring for hemoptysis Time Spent in Patient Care: Greater than 35 minutes (>than 50% of time spent in counselling and/or direct pt care on unit). Critical Care Time: The high probability of a clinically significant, sudden or life threatening deterioration of the patient's [pulmonary system(s) required my full and direct attention, intervention and personal management. The critical care time is as shown. 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
[2021-10-13] MEDS: sodium chloride 0.9% 1,000 ML 999 ML IV (15:15)
[2021-10-13 17:10] LABS: Glucose Point of Care 326 mg/dL (70-110)
[2021-10-13] MEDS: amoxicillin-clav 500-125 mg Tablet 1 TAB PO (18:02)
[2021-10-13] MEDS: benzonatate 100 mg Capsule 200 MG PO (18:02)
[2021-10-13] MEDS: insulin lispro 100 unit/1 mL SUBCUT ×2 (18:02→21:21)
[2021-10-13] MEDS: guaiFENesin-codeine UDC 10 mL 5 ML PO (18:02)
[2021-10-13] MEDS: pantoprazole 40 mg SDV IVP (18:03)
[2021-10-13] MEDS: tamsulosin 0.4 mg Capsule PO (20:33)
[2021-10-13 21:17] LABS: Glucose Point of Care 402 mg/dL (70-110)
[2021-10-13] MEDS: insulin glargine 100 units/1 mL 60 UNIT SUBCUT (21:21)
[2021-10-14] VITALS (8 sets, daily range): BP systolic 130–146; BP diastolic 55–81; PULSE 49–63; RESP 16–18; TEMP 36.7–37.2; O2SAT 94–98
[2021-10-14] MEDS: HYDROmorphone 1 mg/mL INJ 1 mL 0.5 MG IVP ×3 (02:11→12:06)
[2021-10-14] MEDS: guaiFENesin-codeine UDC 10 mL 5 ML PO (06:22)
[2021-10-14 06:26] LABS: Glucose Point of Care 180 mg/dL (70-110)
[2021-10-14] MEDS: insulin lispro 100 unit/1 mL SUBCUT (08:52)
[2021-10-14] MEDS: predniSONE 20 mg Tablet PO (08:52)
[2021-10-14] MEDS: levothyroxine 175 mcg Tablet PO (08:52)
[2021-10-14] MEDS: gabapentin 300 mg Capsule PO (08:52)
[2021-10-14] MEDS: amoxicillin-clav 500-125 mg Tablet 1 TAB PO (08:55)
[2021-10-14] MEDS: tamsulosin 0.4 mg Capsule PO (08:55)
[2021-10-14] MEDS: benzonatate 100 mg Capsule PO (09:06)
[2021-10-14 09:40] LABS: Basophils % 0.1 %; Eosinophils % 0.2 %; Hematocrit 44.9 % (42.0-52.0); Hemoglobin 14.4 g/dL (11.7-16.6); Lymphocytes # 1.2 10^3/uL (0.8-4.8); Lymphocytes % 12.4 %; Mean Corpuscular HGB Conc 32.1 g/dL (30.0-36.0); Mean Corpuscular Hemoglobin 30.4 pg (28.0-34.0); Mean Corpuscular Volume 94.9 fl (80-94); Monocytes # 0.3 10^3/uL (0.2-0.9); Monocytes % 2.9 %; Neutrophils # 8.39 10^3/uL (1.8-7.7); Nucleated Red Blood Cells % 0 %; Platelet Count 185 10^3/cmm (130-400); Red Blood Count 4.73 10^6/uL (4.1-5.3); Red Cell Distribution Width 13.8 % (12.1-15.1)
--- NOTE | 2021-10-14 11:06 | P.DS_ITS ---
Discharge Providers Date of Admission: 10/12/21 16:55 Date of Discharge: October 14, 2021 Attending Provider at Admission: Chas Chicas MD Attending Provider at Discharge: Chas Chicas MD Consults: Consult: Dr. Hare. 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 by Dr. Quintana twice in 2020-sent to emergency room by his primary care physician for hemoptysis today morning. Patient had his chemotherapy session yesterday at [facility] and he was doing fine until today morning.? He had 5-6 episodes of violent bursts of cough with fresh blood about 1 table spoonful.? Currently being treated by his primary care physician for his sinusitis and he still complains of nasal congestion although it improved in last 2 weeks after course of antibiotics.? Exactly 1 year ago, patient presented to emergency room with hemoptysis and bronchoscopy at that time showed exophytic mass (possibly from infiltrating adenocarcinoma of esophagus ) seen marginated from posterior tracheal membrane at the level of about 3.5 to 4 cm below vocal cords with associated 85 to 90% occlusion of the lumen.? With a history of infiltrating adenocarcinoma of lower third of esophagus-he was transferred to [facility] for tumor debulking by interventional pulmonology.? As per patient and his -he has to undergo tumor debulking second time in January 2021 and since then he did not have any hemoptysis.? Also is receiving chemotherapy for his metastatic esophageal cancer at [facility] and they have been following with surveillance CT scans but never mentioned any recurrence of tracheal growth on imaging. ?CBC revealed a hemoglobin hematocrit remaining stable at 15/47.? CT neck showed patent trachea.? CT chest did not show any obvious tracheal or endobronchial obstruction but showed mild tree-in-bud opacities in right lower lobe.? Also radiology reported noted posterior lumen of gastric pull-through which could represent extravasated contrast from active bleeding or ingested medication.? Spoke to radiologist Dr. Kent-there is no evidence of any tracheal or bronchial lesions on the CT.? In the absence of history of hematemesis-hyper dense opacity in gastric pull-through may be an ingested medication Pulmonology was consulted and patient underwent bronchoscopy on 10/13 which revealed slow active bleeding from left upper lobe. No AVMs were noted. Patient was monitored in the hospital for 24 more hours. His hemoglobin remained stable and did not have any further episodes of hemoptysis. Patient was already at the waiting list for transfer at [facility] where his primary interventional db2 developer and oncologist are. As patient remained stable and did not have any further episodes further care plan was discussed in detail and he agreed for discharge at home with possibility of moving his appointment with his primary team at [facility] sooner. On the day of discharge [facility] was called again and we were told that patient is still on waitlist and can take couple of days before they can get him over there. Patient verbalized understanding and wants to go home to prevent further exposure from Covid at hospital. Patient has been advised to come back to the ER if you start having episodes again or try to move his appointment sooner with his providers at [facility]. Physical Exam Narrative: General: alert, NAD HEENT: conj clear, EOMI, PERRL, mmm, Neck: supple, no meningismus Heme: no cervical LAP Pulmonary: CTAB, no wheezing, rhonchi, crackles Cardiovascular: rrr, nl s1s2, no mrg Abdomen: soft, nt, nd, no r/g, bs+ Extremities: pulses +, no edema, no c/c : no CVA tenderness Skin: intact, no rash MSK: no back or neck pain Neurologic: grossly intact Discharge Data Studies Completed and Pending Completed Studies During Hospitalization Category Date Time Status CT chest w con* [id number] Stat Cat Scan 10/12/21 16:[address] neck w con* [id number] Routine Cat Scan 10/12/21 Completed CXRP [XR chest 1V portable [id number]] Routine Exams 10/13/21 10:54 Completed XR chest 1V portable [id number] Stat Exams 10/12/21 15:18 Completed Pending at discharge Category Date Time Status Bronch Washing Culture & GS Routine Lab 10/13/21 10:52 Results Complete Blood Count w/Auto AM LABS Lab 10/15/21 04:00 Ordered Comprehensive Metabolic Panel AM LABS Lab 10/15/21 04:00 Ordered Retype for Patiets ABO/Rh Routine Lab 10/12/21 19:24 Ordered Radiology Impressions Neck CT 10/12/21 00:00 IMPRESSION: 1. No acute abnormality of the cervical soft tissues. 2. Incidental/nonacute findings are listed in the report. Chest CT 10/12/21 16:22 IMPRESSION: 1. Centrilobular opacities in the right lower lobe could represent endobronchial infection or aspiration. 2. Esophagectomy with gastric pull-through procedure. Mild fat stranding at the anastomosis is most likely normal postsurgical scarring. ADDENDUM: 10/12/21 1803 On images 43-50, series 2, there is hyperdensity in the posterior lumen of the gastric pull-through. This could represent ingested medication. Extravasated contrast from active bleeding could also have this appearance. ADDENDUM: 10/12/21 1820 THIS REPORT CONTAINS FINDINGS THAT MAY BE CRITICAL TO PATIENT CARE. The findings were verbally communicated via telephone conference with JULIANA REVELES and Dr Hare at 6:18 PM OPERATOR AND TRUCK DRIVER on 10/12/2021. The findings were acknowledged and understood. The fat stranding extending from the gastric pull-through anastomosis along the posterior right trachea could represent postsurgical scarring and/or residual tumor. There is no visible lesion invading the trachea or bronchi. No active bleeding is visualized within the large airways. Chest X-Ray 10/13/21 10:54 IMPRESSION: 1. Both lungs are well aerated. No pneumothorax. 2. RIGHT lower lobe pulmonary infiltrate seen on the recent CT not well visualized on this study. No new infiltrates. Laboratory Results WBC 10.0 10^3/uL (4.0-10.0) 10/14/21 09:23 RBC 4.73 10^6/uL (4.1-5.3) 10/14/21 09:23 Hgb 14.4 g/dL (11.7-16.6) 10/14/21 09: Hct 44.9 % (42.0-52.0) 10/14/21: MCV 94.9 fl (80-94) H 10/14/21: MCH 30.4 pg (28.0-34.0) 10/14/21: MCHC 32.1 g/dL (30.0-36.0) 10/14/21: RDW 13.8 % (12.1-15.1) 10/14/21: Plt Count 185 10^3/cmm (130-400) 10/14/21: MPV 10.0 fL (7.4-10.4) 10/14/21: Neut % (Auto) 84.0 % 10/14/21: Lymph % (Auto) 12.4 % 10/14/21: [place] % (Auto) 2.9 % 10/14/21: Eos % (Auto) 0.2 % 10/14/21: Baso % (Auto) 0.1 % 10/14/21: Neut # (Auto) 8.39 10^3/uL (1.8-7.7) H 10/14/21: Lymph # (Auto) 1.2 10^3/uL (0.8-4.8) 10/14/21: [place] # (Auto) 0.3 10^3/uL (0.2-0.9) 10/14/21: Eos # (Auto) 0.0 10^3/uL (0.0-0.8) 10/14/21: Baso # (Auto) 0.0 10^3/uL (0.0-0.1) 10/14/21: Nucleated RBC % (auto) 0 % 10/14/21: Nucleated RBCs # 0.0 /100WBC 10/14/21: PT 13.80 SECONDS (12.1-14.9) 10/13/21 06:15 INR 1.03 (0.8-1.2) 10/13/21 06:15 APTT 26.0 SECONDS (23.9-36.7) 10/12/21 15:18 Sodium 137 mmol/L (136-145) 10/13/21 06:15 Potassium 3.5 mmol/L (3.5-5.1) 10/13/21 06:15 Chloride 101 mmol/L (98-107) 10/13/21 06:15 Carbon Dioxide 24 mmol/L (22-29) 10/13/21 06:15 Anion Gap 15.5 (5-19) 10/13/21 06:15 BUN 14 mg/dL (6-20) 10/13/21 06:15 Creatinine 0.5 mg/dL (0.7-1.2) L 10/13/21 06:15 GFR Calculation 173.9 mL/min (90-130) H 10/13/21 06:15 Glucose 127 mg/dL (65-115) H 10/13/21 06:15 POC Glucose 180 mg/dL (70-110) H 10/14/21 06:22 Calculated Osmolality 286 mOsm/kg (285-295) 10/13/21 06:15 Calcium 9.3 mg/dL (8.5-10.5) 10/13/21 06:15 Phosphorus 4.7 mg/dL (2.5-4.5) H 10/13/21 06:15 Magnesium 1.7 mg/dL (1.7-2.3) 10/13/21 06:15 Iron 135 ug/dL (59-158) 10/12/21 15:18 TIBC 325 mcg/dl 10/12/21 15:18 % Saturation 41.5 % (20-50) 10/12/21 15:18 Unsat Iron Binding 190 ug/dL (112-347) 10/12/21 15:18 Total Bilirubin 0.3 mg/dL (0.15-1.2) 10/13/21 06:15 AST 15 U/L (0-40) 10/13/21 06:15 ALT 19 U/L (0-41) 10/13/21 06:15 Alkaline Phosphatase 83 IU/L (40-130) 10/13/21 06:15 Total Protein 5.9 g/dL (6.6-8.7) L 10/13/21 06:15 Albumin 3.7 g/dL (3.5-5.2) 10/13/21 06:15 Globulin 2.2 g/dL (1.3-4.6) 10/13/21 06:15 Urine Color Yellow (Yellow) 10/12/21 17:45 Urine Appearance Clear (CLEAR) 10/12/21 17:45 Urine pH 6.5 (5-7) 10/12/21 17:45 Ur Specific [place] 1.010 (1.005-1.030) 10/12/21 17:45 Urine Protein Neg (Negative) 10/12/21 17:45 Urine Glucose (UA) 4+ (Normal) H 10/12/21 17:45 Urine Ketones 1+ (Negative) H 10/12/21 17:45 Urine Blood Neg (Negative) 10/12/21 17:45 Urine Nitrate Negative (Negative) 10/12/21 17:45 Urine Bilirubin Neg (Negative) 10/12/21 17:45 Urine Urobilinogen Neg mg/dL (Negative) 10/12/21 17:45 Ur Leukocyte Esterase Negative (Negative) 10/12/21 17:45 Ur Random Sodium 61 mmol/L 10/12/21 17:45 Ur Random Potassium 34 mmol/L 10/12/21 17:45 Ur Random Chloride 37 mmol/L 10/12/21 17:45 Nasal Influ A H1 2009 PCR Not detected (NOT DETECT) 10/12/21 16:19 Coronavirus 229E (PCR) Not detected (NOT DETECT) 10/12/21 16:19 Influenza A (H1) PCR Not detected (NOT DETECT) 10/12/21 16:19 Influenza A (H3) PCR Not detected (NOT DETECT) 10/12/21 16:19 Influenza Type A (PCR) Not detected (NOT DETECT) 10/12/21 16:19 Influenza Type B (PCR) Not detected (NOT DETECT) 10/12/21 16:19 SARS-CoV-2 (PCR) Not detected (NOT DETECT) 10/12/21 16:19 Blood Type O Positive 10/12/21 17:48 Rho(D) Type Positive 10/12/21 17:48 Antibody Screen Negative 10/12/21 17:48 Vitals Last Vital Signs Temp 98.9 F 10/14/21 08:00 Pulse 55 L 10/14/21 10:26 Resp 16 10/14/21 10:26 BP 146/81 10/14/21 08:00 Pulse Ox 97 10/14/21 10:26 Discharge Plan Discharge Patient Disposition: Home Condition: Stable Prescriptions: New benzonatate 100 mg Capsule 100 mg PO TID 7 Days Qty: 21 0RF amoxicillin-pot clavulanate 500-125 mg Tablet 1 tab PO BID 3 Days Qty: 6 0RF Continued citalopram 20 mg tablet 20 mg PO QAM 0RF Chantix Starting Month Box 0.5 mg (11)- 1 mg (42) tablets,dose pack See Rx Instructions PO PER PKG DIR Qty: 53 0RF Rx Instructions: PO PER PKG DIR (pt not started) lancets [Accu-Chek Fastclix Lancet Drum] Misc See Rx Instructions .ROUTE .COMPLEX Qty: 102 5RF Dose Instruction: USE 1 TO CHECK BLOOD SUGAR 3-4 TIMES DAILY DIRECTED Rx Instructions: USE 1 TO CHECK BLOOD SUGAR 3-4 TIMES DAILY DIRECTED codeine-guaifenesin 10-100 mg/5 mL liquid 5 ml PO Q6H PRN (Reason: cough) Qty: 120 5RF levothyroxine 175 mcg tablet 175 mcg PO QAM 0RF tamsulosin 0.4 mg capsule 0.4 mg PO BID 0RF timolol maleate 0.5 % drops 1 drp ophthalmic (eye) DAILY 0RF Rx Instructions: in left eye fluconazole 100 mg tablet 100 mg PO DAILY 0RF pseudoephedrine HCl 120 mg tablet extended release 120 mg PO Q12H PRN (Reason: Congestion) 0RF pantoprazole 40 mg tablet,delayed release (DR/EC) 40 mg PO BEDTIME 0RF fluticasone propionate 50 mcg/actuation spray,suspension 1 spray intranasal BID 0RF Lantus Solostar U-100 Insulin 100 unit/mL (3 mL) insulin pen 60 unit SUBCUT BEDTIME 0RF Bystolic 10 mg tablet 10 mg PO QAM 0RF Adrucil See Rx Instructions .ROUTE .COMPLEX 0RF Rx Instructions: 4,500mg in pump over 46 hours every 3 weeks dexamethasone sodium phosphate 10 mg/mL Solution 10 mg IV .PREMED BEFORE CHEMO 0RF Aloxi 0.25 mg/5 mL Solution 0.25 mg IV .PREMED BEFORE CHEMO 0RF Ogivri 420 mg Recon Soln 840 mg IV .EVERY 3 WEEKS 0RF Rx Instructions: prior to pump infusion Humalog KwikPen Insulin 200 unit/mL (3 mL) insulin pen See Rx Instructions .ROUTE .COMPLEX 0RF Rx Instructions: sliding scale subcutaneously prn Discontinued azithromycin 250 mg tablet 250 mg PO DAILY 9 Days Qty: 9 0RF No Action (DME) blood-glucose meter [Accu-Chek Guide Me Glucose Mtr] Misc See Rx Instructions .ROUTE .MEDSUPPLY Qty: 1 0RF Rx Instructions: to check blood sugar as direced (DME) Accu-Chek Guide test strips Strip See Rx Instructions .ROUTE .MEDSUPPLY Qty: 100 5RF Rx Instructions: to test blood sugar as directed 3-4 times daily glimepiride [Amaryl] 4 mg tablet 4 mg PO BID Qty: 60 6RF gabapentin 300 mg capsule 300 mg PO QAM 0RF Discharge Orders: Discharge Order (Routine); Ordered 10/14/21 Ordered By: Chas Chicas Discharge Diet: Soft Mechanical Discharge Activity: Resume usual activity and Increase activity as tolerated Patient Instructions: Opioid Safety Activity Restrictions/Additional Instructions: Follow-up with your primary team at [facility] at the earliest. If you have repeat hemoptysis please report to the ER immediately. Discharge Attestations Time Spent in Discharge Care*: greater than 30 min Specific Discharge Activities: educating patient, discussing with pcp/other providers, discussing with senior case manager/social workers/dc planners, documenting/other paperwork and evaluating patient/reviewing data Status at Discharge: Cognitive status at discharge: cognitively intact , Behavioral status at discharge: cooperative , Functional status at discharge: independent ambulation , Overall status at discharge: patient is progressing back to baseline Quality Metrics Clinical Quality Measures [ No reported AMI, CVA or VTE this stay] Coding Level of Care Code Acute Chg FW DC note Diagnoses History of esophageal cancer Z85.01 Hemoptysis R04.2 Aspiration of blood
[2021-10-14 11:14] LABS: Glucose Point of Care 244 mg/dL (70-110)
--- NOTE | 2021-10-14 11:17 | XR_ITS ---
WS: [id number] XR chest 1V portable [id number] REASON FOR EXAM: pneumonia FINDINGS: Chemotherapy infusion port over the left chest with transvenous left subclavian catheter into the sup erior vena cava unchanged compared to 10/13/2021. Double density now seen to the right of the thoracic compared to the previous examination of 2. The outer density represents the gastric pull-through. The chest is rotated. Subtle right lower lung opacities resolving. XR/XR chest 1V portable [id number] IMPRESSION: Stable chest.
--- NOTE | 2021-10-14 11:17 | PM.PN ---
Subjective Subjective: -Mr. Flores was seen at bedside today -Denied any further episodes of cough or hemoptysis in last 24 hours -Hemoglobin hematocrit stayed stable -Slow oozing of blood from airway might have stopped -As mentioned in previous notes-there are no obvious vascular malformations, pulmonary embolism, masses, nodules, endotracheally, endobronchially, or on CT chest, normal coagulation, normal platelets -Otherwise patient is stable to go home with cough suppressant, antibiotics for aspiration and to sleep with head end elevation to avoid reflux triggering his cough -Patient understands that if he has any further episodes of hemoptysis-he needs to go to ER with preferably higher center Medications: Reviewed: Yes Vitals/I&O/Wt Last Vital Signs Temp 98.9 F 10/14/21 08:00 Pulse 55 L 10/14/21 10:26 Resp 16 10/14/21 10:26 BP 146/81 10/14/21 08:00 Pulse Ox 97 10/14/21 10:26 10/13/21 10/14/21 10/14/21 22:59 06:59 14:59 Intake Total 2480 / 4080 Balance 2480 / 4080 Weight last 48 hrs Weight 234 lb 9.6 oz Weight 237 lb 9.6 oz Weight 237 lb 9.6 oz Weight 232 lb Physical Exam Narrative: General: alert, NAD HEENT: conj clear, EOMI, PERRL, mmm, Neck: supple, no meningismus Heme: no cervical LAP Pulmonary: CTAB, no wheezing, rhonchi, crackles Cardiovascular: rrr, nl s1s2, no mrg Abdomen: soft, nt, nd, no r/g, bs+ Extremities: pulses +, no edema, no c/c : no CVA tenderness Skin: intact, no rash MSK: no back or neck pain Neurologic: grossly intact Data : 10/14/21 09:23 10/13/21 06:15 Other Labs: Radiology Impressions Neck CT 10/12/21 00:00 IMPRESSION: 1. No acute abnormality of the cervical soft tissues. 2. Incidental/nonacute findings are listed in the report. Chest CT 10/12/21 16:22 IMPRESSION: 1. Centrilobular opacities in the right lower lobe could represent endobronchial infection or aspiration. 2. Esophagectomy with gastric pull-through procedure. Mild fat stranding at the anastomosis is most likely normal postsurgical scarring. ADDENDUM: 10/12/21 1803 On images 43-50, series 2, there is hyperdensity in the posterior lumen of the gastric pull-through. This could represent ingested medication. Extravasated contrast from active bleeding could also have this appearance. ADDENDUM: 10/12/21 4930 THIS REPORT CONTAINS FINDINGS THAT MAY BE CRITICAL TO PATIENT CARE. The findings were verbally communicated via telephone conference with JULIANA REVELES and Dr Hare at 6:18 PM [employer] ASSISTING [employer] on 10/12/2021. The findings were acknowledged and understood. The fat stranding extending from the gastric pull-through anastomosis along the posterior right trachea could represent postsurgical scarring and/or residual tumor. There is no visible lesion invading the trachea or bronchi. No active bleeding is visualized within the large airways. Chest X-Ray 10/13/21 10:54 IMPRESSION: 1. Both lungs are well aerated. No pneumothorax. 2. RIGHT lower lobe pulmonary infiltrate seen on the recent CT not well visualized on this study. No new infiltrates. Laboratory Results WBC 10.0 10^3/uL (4.0-10.0) 10/14/21: RBC 4.73 10^6/uL (4.1-5.3) 10/14/21: Hgb 14.4 g/dL (11.7-16.6) 10/14/21: Hct 44.9 % (42.0-52.0) 10/14/21: MCV 94.9 fl (80-94) H 10/14/21: MCH 30.4 pg (28.0-34.0) 10/14/21: MCHC 32.1 g/dL (30.0-36.0) 10/14/21: RDW 13.8 % (12.1-15.1) 10/14/21: Plt Count 185 10^3/cmm (130-400) 10/14/21: MPV 10.0 fL (7.4-10.4) 10/14/21: Neut % (Auto) 84.0 % 10/14/21: Lymph % (Auto) 12.4 % 10/14/21: Sutter % (Auto) 2.9 % 10/14/21 09:23 Eos % (Auto) 0.2 % 10/14/21 09:23 Baso % (Auto) 0.1 % 10/14/21 09:23 Neut # (Auto) 8.39 10^3/uL (1.8-7.7) H 10/14/21 09:23 Lymph # (Auto) 1.2 10^3/uL (0.8-4.8) 10/14/21 09:23 Sutter # (Auto) 0.3 10^3/uL (0.2-0.9) 10/14/21 09:23 Eos # (Auto) 0.0 10^3/uL (0.0-0.8) 10/14/21 09: Baso # (Auto) 0.0 10^3/uL (0.0-0.1) 10/14/21 09: Nucleated RBC % (auto) 0 % 10/14/21 09: Nucleated RBCs # 0.0 /100WBC 10/14/21 09:23 PT 13.80 SECONDS (12.1-14.9) 10/13/21 06:15 INR 1.03 (0.8-1.2) 10/13/21 06:15 APTT 26.0 SECONDS (23.9-36.7) 10/12/21 15:18 Sodium 137 mmol/L (136-145) 10/13/21 06:15 Potassium 3.5 mmol/L (3.5-5.1) 10/13/21 06:15 Chloride 101 mmol/L (98-107) 10/13/21 06:15 Carbon Dioxide 24 mmol/L (22-29) 10/13/21 06:15 Anion Gap 15.5 (5-19) 10/13/21 06:15 BUN 14 mg/dL (6-20) 10/13/21 06:15 Creatinine 0.5 mg/dL (0.7-1.2) L 10/13/21 06:15 GFR Calculation 173.9 mL/min (90-130) H 10/13/21 06:15 Glucose 127 mg/dL (65-115) H 10/13/21 06:15 POC Glucose 244 mg/dL (70-110) H 10/14/21 11:10 Calculated Osmolality 286 mOsm/kg (285-295) 10/13/21 06:15 Calcium 9.3 mg/dL (8.5-10.5) 10/13/21 06:15 Phosphorus 4.7 mg/dL (2.5-4.5) H 10/13/21 06:15 Magnesium 1.7 mg/dL (1.7-2.3) 10/13/21 06:15 Iron 135 ug/dL (59-158) 10/12/21 15:18 TIBC 325 mcg/dl 10/12/21 15:18 % Saturation 41.5 % (20-50) 10/12/21 15:18 Unsat Iron Binding 190 ug/dL (112-347) 10/12/21 15:18 Total Bilirubin 0.3 mg/dL (0.15-1.2) 10/13/21 06:15 AST 15 U/L (0-40) 10/13/21 06:15 ALT 19 U/L (0-41) 10/13/21 06:15 Alkaline Phosphatase 83 IU/L (40-130) 10/13/21 06:15 Total Protein 5.9 g/dL (6.6-8.7) L 10/13/21 06:15 Albumin 3.7 g/dL (3.5-5.2) 10/13/21 06:15 Globulin 2.2 g/dL (1.3-4.6) 10/13/21 06:15 Urine Color Yellow (Yellow) 10/12/21 17:45 Urine Appearance Clear (CLEAR) 10/12/21 17:45 Urine pH 6.5 (5-7) 10/12/21 17:45 Ur Specific Hammond 1.010 (1.005-1.030) 10/12/21 17:45 Urine Protein Neg (Negative) 10/12/21 17:45 Urine Glucose (UA) 4+ (Normal) H 10/12/21 17:45 Urine Ketones 1+ (Negative) H 10/12/21 17:45 Urine Blood Neg (Negative) 10/12/21 17:45 Urine Nitrate Negative (Negative) 10/12/21 17:45 Urine Bilirubin Neg (Negative) 10/12/21 17:45 Urine Urobilinogen Neg mg/dL (Negative) 10/12/21 17:45 Ur Leukocyte Esterase Negative (Negative) 10/12/21 17:45 Ur Random Sodium 61 mmol/L 10/12/21 17:45 Ur Random Potassium 34 mmol/L 10/12/21 17:45 Ur Random Chloride 37 mmol/L 10/12/21 17:45 Nasal Influ A H1 2008 PCR Not detected (NOT DETECT) 10/12/21 16:19 Coronavirus 229E (PCR) Not detected (NOT DETECT) 10/12/21 16:19 Influenza A (H1) PCR Not detected (NOT DETECT) 10/12/21 16:19 Influenza A (H3) PCR Not detected (NOT DETECT) 10/12/21 16:19 Influenza Type A (PCR) Not detected (NOT DETECT) 10/12/21 16:19 Influenza Type B (PCR) Not detected (NOT DETECT) 10/12/21 16:19 SARS-CoV-2 (PCR) Not detected (NOT DETECT) 10/12/21 16:19 Blood Type O Positive 10/12/21 17:48 Rho(D) Type Positive 10/12/21 17:48 Antibody Screen Negative 10/12/21 17:48 Micro: Microbiology 10/13/21 10:52 Gram Stain - Final Lung Right Lower Lobe A&P Assessment and plan (1) History of esophageal cancer: Status: Acute (2) Hemoptysis: Status: Acute (3) Aspiration of blood: Status: Acute Plan #Hemoptysis in pt with 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 chest 10/12/2021 did not show any obvious tracheal or endobronchial obstruction but showed mild tree-in-bud opacities in right lower lobe. No evidence of bronchiectasis or tumors. Also radiology reported noted posterior lumen of gastric pull-through which could represent extravasated contrast from active bleeding or ingested medication. Spoke to radiologist Dr. Kent-there is no evidence of any tracheal or bronchial lesions on the CT. in the absence of history of hematemesis-hyper dense opacity in gastric pull-through may be an ingested medication. -Patient continues to have on and off hemoptysis while coughing - bright red blood and 2 tablespoon of blood-especially yesterday night while he was lying down. I took over to do bronchoscopy 10/13/2021 under general anesthesia and LMA-there were no endotracheal or endobronchial lesions but bright red blood was seen spilled in all airways. After suctioning with saline wash-noted slow oozing bright red blood from left upper lobe. I did not see any AVM. -H&H today morning remained stable around during hospital stay, normal platelets, coagulation profile - Patient might have ruptured blood vessel due to cough secondary to postnasal drip/GERD -Currently is on Augmentin for sinusitis/aspiration; cough suppressants -no evidence of bronchiectasis/suspicious masses/nodules/PE/AVM on CT with contrast; flexible bronchoscopy 10/13/2021 with no evidence of endotracheal or endobronchial lesions, normal mucosa, no obvious AVMs -there was slow bleeding from left upper lobe bronchus- cryptogenic hemoptysis -initially recommended to transfer to higher facility for pulmonary angiography to identify culprit vessel and possible IR guided embolization-if bleeding gets worse. In the last 24 hours patient denied any cough or hemoptysis-patient is stable to be discharged home with instructions that if he develops recurrent hemoptysis he needs to go to ER- to higher center with IR embolization Everything explained in detail to the patient at bedside. He verbalized understanding and agreed with the plan. Recommendations conveyed to hospitalist taking care of the patient. Attestations Medical Necessity Statement*: Plan for discharge Time Spent in Patient Care: Greater than 35 minutes (>than 50% of time spent in counselling and/or direct pt care on unit). Critical Care Time: The high probability of a clinically significant, sudden or life threatening deterioration of the patient's [pulmonary system(s) required my full and direct attention, intervention and personal management. The critical care time is as shown. This time is in addition to time spent performing any reported procedures but includes the following: [x] Data and vital sign review and interpretation [x] Patient assessment, examination and intervention [x] Documentation [x] Medication orders and management Critical Care Time (min): 45 Coding Level of Care Code Established Pt Acute [employer] Patient Type Established History Comprehensive Exam Comprehensive Medical Decision Making Moderate Complexity Diagnoses History of esophageal cancer Z85.01 Hemoptysis R04.2 Aspiration of blood Time Spent (min) 45
--- NOTE | 2021-10-14 14:22 | PC.NURSE ---
Patient's port de-accessed after flushing with two normal salines. IV removed intact. Patient tolerated both well. Patient is A&Ox3. Respirations even and non-labored on room air. Discharge instructions reviewed with patient and at this time. Patient verbalized understanding. Patient wheel chaired to private car.
== END 2021-10-14 14:25 | disposition home or self-care (01) | DRG 204 ==
LOC: ER 17:49 → ER IP 20:43 → MEDSURG 10-13 03:34
PROVIDERS: Internal Medicine Pulmonary Disease; Admitting Provider Student in an Organized Health Care Education/Training Program; Emergency Provider Family Medicine; Visit Provider Student in an Organized Health Care Education/Training Program
PROC: 0BJ08ZZ Inspection of Tracheobronchial Tree, Via Natural or Artificial Opening Endoscopic (ICD-10-PCS; CPT 31622; principal; 2021-10-13 10:00)
DX: R04.2 Hemoptysis (principal); C78.5 Secondary malignant neoplasm of large intestine and rectum; E03.8 Other specified hypothyroidism; Z85.01 Personal history of malignant neoplasm of esophagus; I10 Essential (primary) hypertension; E11.9 Type 2 diabetes mellitus without complications; Z90.49 Acquired absence of other specified parts of digestive tract; Z92.21 Personal history of antineoplastic chemotherapy; J32.9 Chronic sinusitis, unspecified; D50.9 Iron deficiency anemia, unspecified; R58 Hemorrhage, not elsewhere classified; Z79.4 Long term (current) use of insulin
CPT/HCPCS: 31624; 36415; 36416; 70491; 71045; 71260; 80053; 81003; 82436; 82962; 83540; 83550; 83735; 84100; 84133; 84300; 85025; 85610; 85730; 86850; 86900; 87070; 87205; 87631; 87635; 93005; 94640; 94664; 96372; 96374; 96376; 99285; C9113; J1170; J1815 ×2; J2704; J3010; J3490; J7030; J7512; Q9967

== ENCOUNTER 2021-11-02 08:28 | Outpatient (CLI) | payer OTHER, MEDICARE, SELFPAY ==
[2021-11-02 08:38] LABS: Basophils % 0.8 %; Eosinophils # 0.2 10^3/uL (0.0-0.8); Eosinophils % 4.6 %; Hematocrit 45.5 % (42.0-52.0); Hemoglobin 15.5 g/dL (11.7-16.6); Lymphocytes # 0.9 10^3/uL (0.8-4.8); Lymphocytes % 22.9 %; Mean Corpuscular HGB Conc 34.1 g/dL (30.0-36.0); Mean Corpuscular Hemoglobin 30.7 pg (28.0-34.0); Mean Corpuscular Volume 90.1 fl (80-94); Monocytes # 0.6 10^3/uL (0.2-0.9); Monocytes % 16.2 %; Neutrophils # 2.12 10^3/uL (1.8-7.7); Neutrophils % 54.7 %; Nucleated Red Blood Cells % 0 %; Platelet Count 183 10^3/cmm (130-400); Red Blood Count 5.05 10^6/uL (4.1-5.3); Red Cell Distribution Width 13.4 % (12.1-15.1); White Blood Count 3.9 10^3/uL (4.0-10.0)
[2021-11-02 08:59] LABS: Estmated Average Glucose 226; Hemoglobin A1C 9.5 % (4.0-6.0)
[2021-11-02 09:07] LABS: Alanine Aminotransferase 35 U/L (0-41); Albumin Level 4.4 g/dL (3.5-5.2); Alkaline Phosphatase 121 IU/L (40-130); Aspartate Amino Transferase 28 U/L (0-40); Blood Urea Nitrogen 12 mg/dL (6-20); Carbon Dioxide 26 mmol/L (22-29); Chloride 101 mmol/L (98-107); Glucose 211 mg/dL (65-115); Osmolality Calculated 290 mOsm/kg (285-295); Sodium 137 mmol/L (136-145); Thyroid Stimulating Hormone 0.11 uIU/mL (0.27-4.20); Total Bilirubin 0.4 mg/dL (0.15-1.2); Total Protein 6.4 g/dL (6.6-8.7)
[2021-11-02 09:08] LABS: Anion Gap 13.7 (5-19); Potassium 3.7 mmol/L (3.5-5.1)
[2021-11-02] MEDS: palonosetron 0.25 mg/5 mL SDV IV (10:08)
[2021-11-02] MEDS: acetaminophen 325 mg Tablet 650 MG PO (10:08)
[2021-11-02] MEDS: sodium chloride 0.9% 250 ML 75 ML IV (10:08)
[2021-11-02] MEDS: loratadine 10 mg Tablet PO (10:15)
--- NOTE | 2021-11-03 07:33 | ONC FU_ITS ---
Dr. Kearns Patient Follow-Up Note Patient: Ricky Flores Unit #: [id number]: [id number] Dicatated By: Jurgen Kearns M.D.Date of Visit:Nov 02, 2021 Onc Med Follow-up/Prog Note Chief Complaint: Esophageal cancer. 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 His disease was stage IIIB (ypT3, ypN1, M0) at initial diagnosis in June 2018, but with subsequent progression to stage IV (M1). He had presented with iron deficiency anemia and weight loss. He underwent EGD and colonoscopy on 06/15/2018. The colonoscopy showed 2 small sessile polyps in the mid transverse colon, both of which were removed endoscopically. The EGD showed a circumferential and partially obstructing, large size, malignant appearing mass in the lower third esophagus. The stomach and duodenum appeared unremarkable. Biopsy of the esophageal mass showed well-differentiated infiltrating adenocarcinoma with papillary histologic pattern. On subsequent evaluation, the tumor was confirmed to be MSI stable. It did show overexpression of HER-2/quoc, 3+ by IHC and amplification ratio by FISH of 1.8 with 7.3 HER-2 copies/cell. Staging CT scans of the chest, abdomen, and pelvis on 06/15/2018 showed increased soft tissue thickening suggested at the level of the gastroesophageal junction, estimated at 5 cm in width and 4 cm in depth. There was mild thickening of the wall of the distal esophagus. A superior right paratracheal lymph node measured 1.9 x 2.8 cm. The abdomen showed 2 adjacent perigastric lymph nodes near the greater curvature, located between the stomach and pancreas, measuring 1.7 and 2.2 cm. There was no other intra-abdominal or retroperitoneal adenopathy noted, and there was no evidence of other metastatic disease. Staging PET/CT on 06/23/2018 showed a 3 cm hypermetabolic segment of the distal esophagus with SUV 15.0, consistent with primary malignancy. A 2.2 cm gastrohepatic lymph node had SUV 4.1, consistent with local metastatic disease. There was no evidence for other metastatic involvement. The superior right paratracheal lymph node was noted to be FDG negative, consistent with benign disease. He underwent definitive treatment through the [facility]. His treatment included neoadjuvant chemoradiation utilizing weekly carboplatin/Taxol followed by Reva Rusty esophagectomy on 10/30/2018. I do not have the complete pathology report available, but the final staging was IIIB (ypT3, ypN1, M0). He was then followed on observation/expectant management. His surveillance CT scans of the chest, abdomen, and pelvis at [facility] on 01/15/2020 showed interval development of an 8 mm pulmonary nodule in the left major fissure and a 1.1 cm left lower lobe medial basal segment nodule, concerning for metastatic disease. A few other smaller nodules measuring 3 mm or less were also seen in the left lower lobe. There was interval enlargement of the right upper paratracheal lymph node measuring 2 cm. He then underwent EBUS with FNA biopsy of the right paratracheal lymph node on 02/05/2020. Pathology showed metastatic adenocarcinoma consistent with esophageal primary. He had medical oncology follow-up with Dr. Kulwant Knight on 02/13/2020. He was recommended to undergo placement of Port-A-Cath venous access device and to begin a course of chemotherapy with modified FOLFOX. A [employer] next generation sequencing study also was requested, biut there was insufficient material available to complete the study. A repeat PET/CT on 02/22/2020 showed interval development of 2 malignant lymph nodes, the dominant lesion in the right paratracheal area measuring 2.9 cm with SUV 6.8. The second was a lesion in the right cervical level IV territory measuring 2.6 x 1.6 cm, SUV 4.0. There were no other sites of abnormal FDG uptake on that study. With insufficient tissue sample available for any additional studies, I had requested a [employer] next generation sequencing study by liquid biopsy. 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 There were no actionable mutations reported. I had seen him for a follow-up visit on 03/27/2020. With his disease apparently localized to the right paratracheal and lower right supraclavicular nodes, he was interested in pursuing local/regional treatment, and he then had radiation oncology consultation with Dr. Fidel Coronado. His further management was complicated by development of COVID-19 virus infection, confirmed on 04/13/2020. Restaging chest CT on 04/30/2020 showed masslike right paratracheal lymphadenopathy measuring 3.8 x 2.7 cm with mild mass-effect on the thoracic trachea. It had increased from 2.7 x 2.5 cm on the February PET/CT. A prominent left hilar lymph node measuring 12 mm appeared unchanged. The fibrotic appearing nodule in the left lower lobe on the January 2020 CT appeared to have resolved. Neck CT showed a large heterogeneous enhancing right supraclavicular lymph node measuring 3.5 x 1.8 cm, increased from 2.6 x 1.9 cm on the February PET/CT. He was able to begin radiation to the involved area in the right neck/upper chest on 05/04/2020. He completed treatment on 06/15/2020 to a total dose of [address] scans of the chest, abdomen, and pelvis on 07/20/2020 showed slight increase in the right paratracheal mass/adenopathy, measuring approximately 4 cm in maximum diameter. There was noted to be increasing tracheal displacement, but that was compared to the January 2020 CT scan. I reviewed the scans with the radiologist, and it appeared that the progression was very minimal. As such, I had recommended that he be just be followed on close observation. Restaging CT scans on 09/01/2020 showed slight interval improvement in the right supraclavicular lymph node measuring 1.9 x 1.5 x 1.2 cm. There was also slight improvement in right paratracheal lymphadenopathy measuring 2.3 x 2.2 x 3.3 cm. There was no evidence of disease progression. His repeat chest CT on 10/13/2020 showed significant progression in the right paratracheal lymphadenopathy. A soft tissue nodule was noted to be extending into the tracheal lumen. Also noted was development of a new lesion in the right lobe of the liver measuring 2.6 x 3.1 cm. Bronchoscopy on 10/14/2020 showed an exophytic mass originating from the posterior tracheal membrane located about 3.5 to 4 cm below the vocal cords. It was noted to occlude approximately 85 to 90% of the lumen. He was transferred urgently to [facility] for admission, and he subsequently underwent a palliative surgical procedure. Repeat CT scans at [facility] on 11/02/2020 showed residual right paratracheal mass measuring 3.3 x 3.0 cm with decreased luminal extension into the trachea. There was unchanged right supraclavicular lymphadenopathy measuring 1.4 x 1.7 cm. There was redemonstration of hepatic metastasis measuring 3.4 x 2.6 cm, with slight interval increase. He then returned here to begin systemic therapy with modified FOLFOX chemotherapy in combination with Herceptin. His other medical illnesses include hypertension, hypertriglyceridemia, type II diabetes, hypothyroidism, androgen deficiency, obstructive sleep apnea, degenerative arthritis, and glaucoma. He also has history of diverticulitis and a history of recurrent episodes of nephrolithiasis. His other surgeries include cataract excision from the left eye, carpal tunnel release on the left, vasectomy, and extracorporeal shockwave lithotripsy. He underwent right total hip arthroplasty on 07/29/2019. He is a non-smoker, but he had chewed tobacco for 35 years, estimated 2 to 3 cans/day. He does not drink alcohol. INTERIM HISTORY: From 11/17/2020 through 01/26/2021 he completed 6 cycles of treatment with modified FOLFOX/Avastin. He had a dose reduction beginning with cycle 4 and a further dose reduction at cycle 5 due to chemotherapy associated neuropathy. Prior to cycle 3, on 12/09/2020, he underwent re-resection of the tracheal mass at [facility]. He had a follow-up visit at [facility] again on 02/02/2021. His restaging CT scans show changes of bronchoscopic tumor debulking with a residual partially necrotic lesion involving the right aspect of the trachea and extending posteriorly. There was stable right supraclavicular lymphadenopathy and there was resolution of the previously noted hepatic segment 7 metastatic lesion. Overall, there was some evidence of response and no evidence of disease progression. With those findings, he was recommended to continue chemotherapy with infusional 5-FU together with Herceptin at a 3-week dosing interval. Due to a previously planned family vacation, his scheduled treatment on 02/08/2021 was limited to just Herceptin. As of 03/01/2021 he restarted infusional 5-FU in combination with Herceptin, and he then continued treatment at 2-week intervals. His repeat chest CT at [facility] on 05/18/2021 showed slight further decrease in the size of the right paratracheal and right supraclavicular lymphadenopathy. Subcarinal lymphadenopathy with punctate calcifications also appeared stable and felt to possibly represent a granulomatous process. There was no evidence of disease progression. He was recommended to continue treatment with Herceptin/infusional 5-FU at a 3-week dosing interval. With cycle 14, on 06/22/2021, the 5-FU bolus was omitted and the infusional 5-FU dosage was reduced by 20% due to neutropenia and worsening mucositis. As of his followup with Dr. Clemens at [facility] on 08/24/[address] scan showed slight interval decrease in size of right supraclavicular and paratracheal lymphadenopathy. He was recommended to continue his same treatment. He began cycle 18 of Herceptin/infusional 5-FU on 08/31/2021. His further treatment was then complicated due to problems with insurance coverage for his chemotherapy administered locally. He eventually was given cycle 19 at [facility] on 10/11/2021. On 10/12/2021 he was admitted to the hospital after presenting to the emergency room with hemoptysis. Chest CT showed centrilobular opacities in the right lower lobe, possiby representing endobronchial infection or aspiration. Bronchoscopy on 10/13/2021 showed no endotracheal or endobronchial lesions. Slow active bleeding was noted from the left upper lobe. There was no evidence of AV malformation. He was discharged home the following day. He is seen for a follow-up visit. He has had no recurrence of hemoptysis since he has been home from the hospital. However, he does say that he is very concerned about his voice, which has remained a little hoarse. He says that food also tends to hang up slightly when he is swallowing. He complains that his energy is not very good, but that is chronic. ECOG score is 1. His appetite comes and goes. He has not had fever or night sweats. He is not having cough, and he does not complain of shortness of breath or chest pain. He has not been having nausea, but he does have some acid reflux. Bowel and bladder function have been okay. He has no diarrhea. He has no significant joint or bone pain. He does not complain of headache or dizziness. He has no residual neuropathy. Medications: Bystolic 1 Tablet (of 10 mg) Oral daily, Dronabinol 1 (5 mg) Capsule Oral b.i.d., Fluconazole 1 Tablet (of 100 mg) Oral daily, Gabapentin 1 Capsule (of 300 mg) Oral b.i.d., Glimepiride 1 Tablet (of 4 mg) Oral b.i.d., HumaLOG 200 Units (of 100 Units/mL) Subcutaneous PRN, Lantus 40 Units (of 100 Units/mL) Subcutaneous daily, Levothyroxine Sodium 1 Tablet (of 175 mcg) Oral daily, Nitrofurantoin Macrocrystal 1 Capsule (of 100 mg) Oral daily, oxyCODONE HCl 1 (5 mg) Tablet Oral q 4 hours PRN, Pantoprazole Sodium 1 Tablet (of 40 mg) Tablet, enteric coated Oral daily, Tamsulosin HCl 1 Cartridge (of 0.4 mg) Capsule Oral b.i.d., Timolol Maleate 1 Drop(s) (of 0.5 %) Solution Ophthalmic daily Allergies: Morphine Sulfate Vital Signs: Performed on Nov 02, 2021 09:47 Height - 75.00 in Weight - 235.2 lbs (HIGH) BSA - 2.35 sq.m BMI - 29.40 Temperature - 97.6 F (LOW) Pulse - 57 /min (LOW) Respiration - 16 /min BP - 139/85 mm(hg) O2 Sat - 98 % Pain - 0 Fatigue - 7 Physical Examination: Constitutional - He looks good generally , Eyes - Sclerae nonicteric. Conjunctivae clear, ENMT - No lesions noted in the oral cavity, Hematologic/Lymphatic - No cervical, clavicular, or axillary adenopathy noted, Respiratory - Lungs sound clear with good air movement bilaterally, Cardiovascular - Heart rhythm is regular. There is no murmur, gallop or rub noted, Abdomen - Soft. Liver and spleen are not enlarged. There is no abdominal mass or ascites noted and there is no inguinal adenopathy, Extremities - No edema, Neurologic - No focal neurologic deficits noted. Lab/Imaging: Test performed on Nov 02, 2021 08:20 Sodium 137 mmol/L TSH 0.11 uIU/mL Potassium 3.7 mmol/L Chloride 101 mmol/L Est Avg Glucose (eAG) 226 mg/dL CO2 26 mmol/L Anion Gap 13.7 BUN 12 mg/dL Creatinine 0.4 mg/dL Cr Clearance (Est) 313.5100 mL/min eGFR 225.0 mL/min Glucose 211 mg/dL Osmolality - Calculated 290 mOsm/kg Calcium 9.0 mg/dL Protein, Total 6.4 g/dL Albumin 4.4 g/dL Globulin 2.0 g/dL Bilirubin, Total 0.4 mg/dL ALT (SGPT) 35 U/L AST (SGOT) 28 U/L Alkaline Phosphatase 121 IU/L Hemoglobin A1C % 9.5 % WBC 3.9 10 3/uL RBC 5.05 10 6/uL HGB 15.5 g/dL HCT 45.5 % MCV 90.1 fl MCH 30.7 pg MCHC 34.1 g/dL RDW 13.4 % Platelet Count 183 10 3/cmm MPV 10.0 fL Neutrophils 2.12 10 3/uL Lymphocytes 0.9 10 3/uL Monocytes 0.6 10 3/uL Eosinophils 0.2 10 3/uL Basophils 0.0 10 3/uL Neutrophil % 54.7 % Lymphocyte % 22.9 % Monocyte % 16.2 % Eosinophil % 4.6 % Basophils % 0.8 % NRBC % 0 % Problem List: 1. Well differentiated infiltrating adenocarcinoma involving the lower third of the esophagus, HER-2/quoc positive. He disease was stage IIIB (ypT3, ypN1, M0) at initial diagnosis in June 2018, but with subsequent progression to stage IV (M1), with involvement in the right paratracheal lymph node confirmed by EBUS/FNA biopsy on 02/05/2020. His next generation sequencing study by liquid biopsy showed no actionable mutations. 2. Hypertension. 3. Hyperlipidemia. 4. Type II diabetes. 5. Obstructive sleep apnea. 6. Degenerative arthritis. 7. He has posttraumatic glaucoma of the left eye. 8. He has a history of recurrent episodes of nephrolithiasis. 9. He has a history of diverticulitis. Problems Addressed with this Encounter and Plan: 1. Patient with well differentiated infiltrating adenocarcinoma involving the lower third of the esophagus, HER-2/quoc positive. He disease was stage IIIB (ypT3, ypN1, M0) at initial diagnosis in June 2018. His initial treatment included neoadjuvant chemoradiation utilizing weekly carboplatin/Taxol followed by Mike Rusty esophagectomy on 10/30/2018. He had subsequent progression to stage IV (M1), with involvement in the right paratracheal lymph node confirmed by EBUS/FNA biopsy on 02/05/2020. His staging PET/CT showed uptake in the known involved right paratracheal lymph node and an additional area of uptake in a right cervical level IV territory node measuring 2.6 x 1.6 cm, SUV 4.0. With disease localized to right supraclavicular and right paratracheal lymph nodes, he was interested in pursuing local/regional treatment. His further treatment was complicated by COVID-19 virus infection, from which he had uneventful recovery. His restaging CT scans of the neck and chest on 04/30/2020 did show further progression of the lymphadenopathy, but still with localized involvement. He then began radiation to the right neck/upper chest on 05/04/2020. He completed treatment on 06/15/2020 to a total dose of [address] scans on 09/01/2020 showed no evidence of disease progression. At his follow-up visit on 10/06/2020 he had developed some coughing spells, occasionally with associated hemoptysis. His repeat chest CT on 10/13/2020 showed progression of the right paratracheal mass with apparent extension into the trachea. This was confirmed by bronchoscopy on 10/14/2020, with evidence of exophytic mass originating from the posterior tracheal membrane at the level of about 3.5 to 4 cm below the vocal cords with associated 85 to 90% occlusion of the lumen. Also noted at that time was development of a new metastatic lesion in the liver. He was admitted to [facility] where he underwent a palliative surgical procedure. On 11/17/2020 he began cycle 1 of systemic therapy with modified FOLFOX chemotherapy in combination with Herceptin. He had mild neuropathy lasting 3 days after that treatment. He also had some fatigue, but overall he tolerated it well. He continued with cycle 2 on 12/01/2020. With that treatment he had significantly more toxicity with increased fatigue, more severe neuropathy, and some stomatitis. In the meantime, he had returned to [facility] for re-resection of recurrent tracheal mass. He tolerated the surgery well. He continue with his third cycle of chemotherapy on 12/15/2020, but with omission of the oxaliplatin due to increased neuropathy. The oxaliplatin was restarted at a reduced dosage with cycle 4 on 12/29/2020. His cycle 5 on 01/12/2021 was administered with a further reduction in the oxaliplatin dosage, with omission of the 5-FU bolus, and with a dose reduction in the 5-FU infusion. With those changes, he had just mild neuropathy, but he continued to have severe fatigue. He proceeded with his 6th cycle of treatment on 01/26/2021. He had a follow-up visit at [facility] on 02/02/2021. His restaging CT scans showed a residual partially necrotic lesion involving the right aspect of the trachea along with stable right supraclavicular lymphadenopathy. There was resolution of previously noted metastatic lesion involving hepatic segment 7. With those findings, he was recommended to continue chemotherapy with infusional 5-FU and Herceptin. His schedule treatment on 02/08/2021 was limited to just Herceptin, at his request. He then began treatment with infusional 5-FU in combination with Herceptin on 03/01/2021, administered at a 3-week dosing interval. He had initially tolerated well. However, at his follow-up visit on 06/22/2021 he had become mildly neutropenic and he was also having increased mucositis with the chemotherapy. At that point the 5-FU bolus was omitted and he was given a 20% reduction in the infusional 5-FU dosage. His symptoms subsequently improved, though he still had some treatment related fatigue. His repeat chest CT at [facility] on 08/24/2021 showed continued slight interval decrease in the size of the right supraclavicular and paratracheal lymphadenopathy. He was recommended to continue his same treatment. He received his cycle 18 treatment here on 08/31/2021. His further management was complicated by insurance issues, so that his cycle 19 was delayed until 10/11/2021, and it was administered at [facility]. He is seen here now for his cycle 20 treatment. The dosages remain the same. He is scheduled to be seen again at [facility] on 11/15/2021. I will tentatively plan a follow-up visit here in 3 weeks. 2. On 10/12/2021 he was admitted to the hospital after presenting to the emergency room with hemoptysis. His bronchoscopy on 10/13/2021 showed no evidence of endotracheal or endobronchial lesion. Slow bleeding was noted from the left upper lobe. There was no evidence of AV malformation. The bleeding resolved with conservative management. Thus far there has been no evidence of recurrence. However, since then he has had persistent hoarseness and some slight difficulty swallowing. The cause for this is uncertain. At this point I will try and arrange for follow-up with Dr. Nico Quintana who performed the tracheal surgery at [facility]. Signed By: Jurgen Kearns M.D. <<Signature on File>>
== END 2021-11-02 08:29 | disposition home or self-care (01) ==
LOC: ONCMED 08:28
PROVIDERS: Visit Provider Internal Medicine Medical Oncology
DX: Z51.12 Encounter for antineoplastic immunotherapy (principal); Z51.11 Encounter for antineoplastic chemotherapy; C15.5 Malignant neoplasm of lower third of esophagus; C77.0 Secondary and unspecified malignant neoplasm of lymph nodes of head, face and neck; I10 Essential (primary) hypertension; E78.5 Hyperlipidemia, unspecified; E11.9 Type 2 diabetes mellitus without complications; G47.33 Obstructive sleep apnea (adult) (pediatric); M19.90 Unspecified osteoarthritis, unspecified site; H40.89 Other specified glaucoma; Z87.442 Personal history of urinary calculi; Z87.19 Personal history of other diseases of the digestive system; Z79.899 Other long term (current) drug therapy
CPT/HCPCS: 80053; 83036; 84443; 85025; 96367; 96375; 96413; 96416; 99215; J1100; J2469; J7050; J9190; Q5114

== ENCOUNTER 2021-11-04 09:56 | Outpatient (CLI) | payer BC, OTHER, MEDICARE, SELFPAY ==
[2021-11-04] MEDS: sodium chloride 0.9% 1,000 ML 999 ML IV (10:08)
== END 2021-11-04 09:57 | disposition home or self-care (01) ==
PROVIDERS: Visit Provider Internal Medicine Medical Oncology
DX: C15.5 Malignant neoplasm of lower third of esophagus (principal); C77.1 Secondary and unspecified malignant neoplasm of intrathoracic lymph nodes
CPT/HCPCS: 96360; J7030

== ENCOUNTER 2021-11-29 08:03 | Outpatient (CLI) | payer OTHER, MEDICARE, SELFPAY ==
[2021-11-29 08:36] LABS: Basophils % 0.8 %; Eosinophils # 0.1 10^3/uL (0.0-0.8); Eosinophils % 2.5 %; Hematocrit 41.3 % (42.0-52.0); Hemoglobin 13.7 g/dL (11.7-16.6); Lymphocytes # 0.8 10^3/uL (0.8-4.8); Lymphocytes % 16.3 %; Mean Corpuscular HGB Conc 33.2 g/dL (30.0-36.0); Mean Corpuscular Hemoglobin 30.6 pg (28.0-34.0); Mean Corpuscular Volume 92.4 fl (80-94); Mean Platelet Volume 10.1 fL (7.4-10.4); Monocytes # 0.6 10^3/uL (0.2-0.9); Monocytes % 13.2 %; Neutrophils # 3.19 10^3/uL (1.8-7.7); Neutrophils % 66.8 %; Nucleated Red Blood Cells % 0 %; Platelet Count 182 10^3/cmm (130-400); Red Blood Count 4.47 10^6/uL (4.1-5.3); Red Cell Distribution Width 14.4 % (12.1-15.1); White Blood Count 4.8 10^3/uL (4.0-10.0)
[2021-11-29 08:46] LABS: Alanine Aminotransferase 26 U/L (0-41); Alkaline Phosphatase 110 IU/L (40-130); Anion Gap 12.8 (5-19); Aspartate Amino Transferase 23 U/L (0-40); Blood Urea Nitrogen 11 mg/dL (6-20); Calcium 8.8 mg/dL (8.5-10.5); Carbon Dioxide 27 mmol/L (22-29); Chloride 101 mmol/L (98-107); Globulin 1.7 g/dL (1.3-4.6); Glomerular Filtration Rate 140.4 mL/min (90-130); Glucose 272 mg/dL (65-115); Osmolality Calculated 293 mOsm/kg (285-295); Potassium 3.8 mmol/L (3.5-5.1); Sodium 137 mmol/L (136-145); Total Bilirubin 0.4 mg/dL (0.15-1.2); Total Protein 5.7 g/dL (6.6-8.7)
[2021-11-29] MEDS: sodium chloride 0.9% 250 ML 75 ML IV (10:25)
[2021-11-29] MEDS: acetaminophen 325 mg Tablet 650 MG PO (10:30)
[2021-11-29] MEDS: palonosetron 0.25 mg/5 mL SDV IV (10:30)
[2021-11-29] MEDS: loratadine 10 mg Tablet PO (10:30)
--- NOTE | 2021-12-07 20:29 | ONC FU_ITS ---
Arely Silva Progress Note Patient: Ricky Flores Unit #: [id number]: [id number] Dicatated By: Arely Silva N.P.Date of Visit:Nov 29, 2021 Onc MED Follow-up/Prog Note Chief Complaint: Esophageal cancer. 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 His disease was stage IIIB (ypT3, ypN1, M0) at initial diagnosis in June 2018, but with subsequent progression to stage IV (M1). He had presented with iron deficiency anemia and weight loss. He underwent EGD and colonoscopy on 06/15/2018. The colonoscopy showed 2 small sessile polyps in the mid transverse colon, both of which were removed endoscopically. The EGD showed a circumferential and partially obstructing, large size, malignant appearing mass in the lower third esophagus. The stomach and duodenum appeared unremarkable. Biopsy of the esophageal mass showed well-differentiated infiltrating adenocarcinoma with papillary histologic pattern. On subsequent evaluation, the tumor was confirmed to be MSI stable. It did show overexpression of HER-2/quoc, 3+ by IHC and amplification ratio by FISH of 1.8 with 7.3 HER-2 copies/cell. Staging CT scans of the chest, abdomen, and pelvis on 06/15/2018 showed increased soft tissue thickening suggested at the level of the gastroesophageal junction, estimated at 5 cm in width and 4 cm in depth. There was mild thickening of the wall of the distal esophagus. A superior right paratracheal lymph node measured 1.9 x 2.8 cm. The abdomen showed 2 adjacent perigastric lymph nodes near the greater curvature, located between the stomach and pancreas, measuring 1.7 and 2.2 cm. There was no other intra-abdominal or retroperitoneal adenopathy noted, and there was no evidence of other metastatic disease. Staging PET/CT on 06/23/2018 showed a 3 cm hypermetabolic segment of the distal esophagus with SUV 15.0, consistent with primary malignancy. A 2.2 cm gastrohepatic lymph node had SUV 4.1, consistent with local metastatic disease. There was no evidence for other metastatic involvement. The superior right paratracheal lymph node was noted to be FDG negative, consistent with benign disease. He underwent definitive treatment through the [facility]. His treatment included neoadjuvant chemoradiation utilizing weekly carboplatin/Taxol followed by Mike Rusty esophagectomy on 10/30/2018. I do not have the complete pathology report available, but the final staging was IIIB (ypT3, ypN1, M0). He was then followed on observation/expectant management. His surveillance CT scans of the chest, abdomen, and pelvis at [facility] on 01/15/2020 showed interval development of an 8 mm pulmonary nodule in the left major fissure and a 1.1 cm left lower lobe medial basal segment nodule, concerning for metastatic disease. A few other smaller nodules measuring 3 mm or less were also seen in the left lower lobe. There was interval enlargement of the right upper paratracheal lymph node measuring 2 cm. He then underwent EBUS with FNA biopsy of the right paratracheal lymph node on 02/05/2020. Pathology showed metastatic adenocarcinoma consistent with esophageal primary. He had medical oncology follow-up with Dr. Kulwant Knight on 02/13/2020. He was recommended to undergo placement of Port-A-Cath venous access device and to begin a course of chemotherapy with modified FOLFOX. A [employer] One next generation sequencing study also was requested, biut there was insufficient material available to complete the study. A repeat PET/CT on 02/22/2020 showed interval development of 2 malignant lymph nodes, the dominant lesion in the right paratracheal area measuring 2.9 cm with SUV 6.8. The second was a lesion in the right cervical level IV territory measuring 2.6 x 1.6 cm, SUV 4.0. There were no other sites of abnormal FDG uptake on that study. With insufficient tissue sample available for any additional studies, I had requested a [employer] One next generation sequencing study by liquid biopsy. 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 There were no actionable mutations reported. I had seen him for a follow-up visit on 03/27/2020. With his disease apparently localized to the right paratracheal and lower right supraclavicular nodes, he was interested in pursuing local/regional treatment, and he then had radiation oncology consultation with Dr. Fidel Coronado. His further management was complicated by development of COVID-19 virus infection, confirmed on 04/13/2020. Restaging chest CT on 04/30/2020 showed masslike right paratracheal lymphadenopathy measuring 3.8 x 2.7 cm with mild mass-effect on the thoracic trachea. It had increased from 2.7 x 2.5 cm on the February PET/CT. A prominent left hilar lymph node measuring 12 mm appeared unchanged. The fibrotic appearing nodule in the left lower lobe on the January 2020 CT appeared to have resolved. Neck CT showed a large heterogeneous enhancing right supraclavicular lymph node measuring 3.5 x 1.8 cm, increased from 2.6 x 1.9 cm on the February PET/CT. He was able to begin radiation to the involved area in the right neck/upper chest on 05/04/2020. He completed treatment on 06/15/2020 to a total dose of [address] scans of the chest, abdomen, and pelvis on 07/20/2020 showed slight increase in the right paratracheal mass/adenopathy, measuring approximately 4 cm in maximum diameter. There was noted to be increasing tracheal displacement, but that was compared to the January 2020 CT scan. I reviewed the scans with the radiologist, and it appeared that the progression was very minimal. As such, I had recommended that he be just be followed on close observation. Restaging CT scans on 09/01/2020 showed slight interval improvement in the right supraclavicular lymph node measuring 1.9 x 1.5 x 1.2 cm. There was also slight improvement in right paratracheal lymphadenopathy measuring 2.3 x 2.2 x 3.3 cm. There was no evidence of disease progression. His repeat chest CT on 10/13/2020 showed significant progression in the right paratracheal lymphadenopathy. A soft tissue nodule was noted to be extending into the tracheal lumen. Also noted was development of a new lesion in the right lobe of the liver measuring 2.6 x 3.1 cm. Bronchoscopy on 10/14/2020 showed an exophytic mass originating from the posterior tracheal membrane located about 3.5 to 4 cm below the vocal cords. It was noted to occlude approximately 85 to 90% of the lumen. He was transferred urgently to [facility] for admission, and he subsequently underwent a palliative surgical procedure. Repeat CT scans at [facility] on 11/02/2020 showed residual right paratracheal mass measuring 3.3 x 3.0 cm with decreased luminal extension into the trachea. There was unchanged right supraclavicular lymphadenopathy measuring 1.4 x 1.7 cm. There was redemonstration of hepatic metastasis measuring 3.4 x 2.6 cm, with slight interval increase. He then returned here to begin systemic therapy with modified FOLFOX chemotherapy in combination with Herceptin. His other medical illnesses include hypertension, hypertriglyceridemia, type II diabetes, hypothyroidism, androgen deficiency, obstructive sleep apnea, degenerative arthritis, and glaucoma. He also has history of diverticulitis and a history of recurrent episodes of nephrolithiasis. His other surgeries include cataract excision from the left eye, carpal tunnel release on the left, vasectomy, and extracorporeal shockwave lithotripsy. He underwent right total hip arthroplasty on 07/29/2019. He is a non-smoker, but he had chewed tobacco for 35 years, estimated 2 to 3 cans/day. He does not drink alcohol. INTERIM HISTORY: From 11/17/2020 through 01/26/2021 he completed 6 cycles of treatment with modified FOLFOX/Avastin. He had a dose reduction beginning with cycle 4 and a further dose reduction at cycle 5 due to chemotherapy associated neuropathy. Prior to cycle 3, on 12/09/2020, he underwent re-resection of the tracheal mass at [facility]. He had a follow-up visit at [facility] again on 02/02/2021. His restaging CT scans show changes of bronchoscopic tumor debulking with a residual partially necrotic lesion involving the right aspect of the trachea and extending posteriorly. There was stable right supraclavicular lymphadenopathy and there was resolution of the previously noted hepatic segment 7 metastatic lesion. Overall, there was some evidence of response and no evidence of disease progression. With those findings, he was recommended to continue chemotherapy with infusional 5-FU together with Herceptin at a 3-week dosing interval. Due to a previously planned family vacation, his scheduled treatment on 02/08/2021 was limited to just Herceptin. As of 03/01/2021 he restarted infusional 5-FU in combination with Herceptin, and he then continued treatment at 2-week intervals. His repeat chest CT at [facility] on 05/18/2021 showed slight further decrease in the size of the right paratracheal and right supraclavicular lymphadenopathy. Subcarinal lymphadenopathy with punctate calcifications also appeared stable and felt to possibly represent a granulomatous process. There was no evidence of disease progression. He was recommended to continue treatment with Herceptin/infusional 5-FU at a 3-week dosing interval. With cycle 14, on 06/22/2021, the 5-FU bolus was omitted and the infusional 5-FU dosage was reduced by 20% due to neutropenia and worsening mucositis. As of his followup with Dr. Clemens at [facility] on 08/24/[address] scan showed slight interval decrease in size of right supraclavicular and paratracheal lymphadenopathy. He was recommended to continue his same treatment. He began cycle 18 of Herceptin/infusional 5-FU on 08/31/2021. His further treatment was then complicated due to problems with insurance coverage for his chemotherapy administered locally. He eventually was given cycle 19 at [facility] on 10/11/2021. On 10/12/2021 he was admitted to the hospital after presenting to the emergency room with hemoptysis. Chest CT showed centrilobular opacities in the right lower lobe, possiby representing endobronchial infection or aspiration. Bronchoscopy on 10/13/2021 showed no endotracheal or endobronchial lesions. Slow active bleeding was noted from the left upper lobe. There was no evidence of AV malformation. He was discharged home the following day. Patient presents today for follow-up visit. He continues to have some fatigue but otherwise he is doing okay. His appetite comes and goes. He denies fever, chills, night sweats. No sinus drainage or sore throat. No shortness of breath, cough, chest pain. No GI or problems. No joint or bone pain. No numbness or paresthesias. Review Of Symptoms:See above. Past Medical History: Anemia Degenerative arthritis Diverticulitis Glaucoma of the left eye Hypertension Hypertriglyceridemia Hypogonadism Hypothyroidism Obstructive sleep apnea Renal calculi Type II diabetes Past Surgical History: Cataract excision left eye Left carpal tunnel release Vasectomy EGD and colonoscopy in 2018 Extracorporeal shockwave lithotripsy x 2 in 2011 Allergies: Morphine Sulfate Medications: Bystolic 1 Tablet (of 10 mg) Oral daily Dronabinol 1 (5 mg) Capsule Oral b.i.d. Fluconazole 1 Tablet (of 100 mg) Oral daily Gabapentin 1 Capsule (of 300 mg) Oral b.i.d. Glimepiride 1 Tablet (of 4 mg) Oral b.i.d. HumaLOG 200 Units (of 100 Units/mL) Subcutaneous PRN Lantus 40 Units (of 100 Units/mL) Subcutaneous daily Levothyroxine Sodium 1 Tablet (of 175 mcg) Oral daily Nitrofurantoin Macrocrystal 1 Capsule (of 100 mg) Oral daily oxyCODONE HCl 1 (5 mg) Tablet Oral q 4 hours PRN Pantoprazole Sodium 1 Tablet (of 40 mg) Tablet, enteric coated Oral daily Tamsulosin HCl 1 Cartridge (of 0.4 mg) Capsule Oral b.i.d. Timolol Maleate 1 Drop(s) (of 0.5 %) Solution Ophthalmic daily Family History: Mr. Flores's mother is alive. Mr. Flores's father is alive: heart disease. Mr. Flores has 3 brothers: 3 alive. Father has heart disease and is still living at age 87. Mother still living and in good health at age 82. Two brothers have diabetes, and one also has heart disease. 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 Mr. Flores has never smoked. He has no history of drinking. He has indicated exposure to the following products: chewing tobacco. He is a nonsmoker, he does have a history of chewing tobacco for 35 years, estimated 2-3 cans per day. He does not drink alcohol. Physical Examination: Performed on Nov 29, 2021 10:40: Height - 75.00 in, Weight - 242.0 lbs (HIGH), BSA - 2.38 sq.m, BMI - 30.25 (HIGH), Temperature - 97.5 F (LOW), Pulse - 67 /min, Respiration - 18 /min, BP - 112/74 mm(hg), O2 Sat - 95 % (LOW), Pain - 0, and Fatigue - 6. Performance Status: 1 - No physically strenuous activity, but ambulatory and able to carry out light or sedentary work (e.g. office work, light house work). (ECOG) Constitutional Alert, cooperative, oriented. Mood and affect appropriate. Appears close to chronological age. Well nourished. Well developed. Head Normocephalic; no scars. Respiratory Lungs are clear to auscultation without rhonchi or wheezing. Cardiovascular Regular rate and rhythm of heart without murmurs, gallops or rubs. Abdomen Non-tender, non-distended, no masses, ascites or hepatosplenomegaly. Good bowel sounds. No guarding or rebound tenderness. Musculoskeletal No tenderness or swelling, normal range of motion without obvious weakness. Psychiatric Alert and oriented times three. Coherent speech. Verbalizes understanding of our discussions today. Laboratory: Test performed on Nov 29, 2021 08:20 Sodium 137 mmol/L Potassium 3.8 mmol/L Chloride 101 mmol/L CO2 27 mmol/L Anion Gap 12.8 BUN 11 mg/dL Creatinine 0.6 mg/dL Cr Clearance (Est) 218.5300 mL/min eGFR 140.4 mL/min Glucose 272 mg/dL Osmolality - Calculated 293 mOsm/kg Calcium 8.8 mg/dL Protein, Total 5.7 g/dL Albumin 4.0 g/dL Globulin 1.7 g/dL Bilirubin, Total 0.4 mg/dL ALT (SGPT) 26 U/L AST (SGOT) 23 U/L Alkaline Phosphatase 110 IU/L WBC 4.8 10 3/uL RBC 4.47 10 6/uL HGB 13.7 g/dL HCT 41.3 % MCV 92.4 fl MCH 30.6 pg MCHC 33.2 g/dL RDW 14.4 % Platelet Count 182 10 3/cmm MPV 10.1 fL Neutrophils 3.19 10 3/uL Lymphocytes 0.8 10 3/uL Monocytes 0.6 10 3/uL Eosinophils 0.1 10 3/uL Basophils 0.0 10 3/uL Neutrophil % 66.8 % Lymphocyte % 16.3 % Monocyte % 13.2 % Eosinophil % 2.5 % Basophils % 0.8 % NRBC % 0 % Test performed on Nov 02, 2021 08:20 TSH 0.11 uIU/mL Est Avg Glucose (eAG) 226 mg/dL Hemoglobin A1C % 9.5 % Impression: 1. Well differentiated infiltrating adenocarcinoma involving the lower third of the esophagus, HER-2/quoc positive. He disease was stage IIIB (ypT3, ypN1, M0) at initial diagnosis in June 2018, but with subsequent progression to stage IV (M1), with involvement in the right paratracheal lymph node confirmed by EBUS/FNA biopsy on 02/05/2020. His next generation sequencing study by liquid biopsy showed no actionable mutations. 2. Hypertension. 3. Hyperlipidemia. 4. Type II diabetes. 5. Obstructive sleep apnea. 6. Degenerative arthritis. 7. He has posttraumatic glaucoma of the left eye. 8. He has a history of recurrent episodes of nephrolithiasis. 9. He has a history of diverticulitis. Plan: 1. Patient with well differentiated infiltrating adenocarcinoma involving the lower third of the esophagus, HER-2/quoc positive. He disease was stage IIIB (ypT3, ypN1, M0) at initial diagnosis in June 2018. His initial treatment included neoadjuvant chemoradiation utilizing weekly carboplatin/Taxol followed by Mike Rusty esophagectomy on 10/30/2018. He had subsequent progression to stage IV (M1), with involvement in the right paratracheal lymph node confirmed by EBUS/FNA biopsy on 02/05/2020. His staging PET/CT showed uptake in the known involved right paratracheal lymph node and an additional area of uptake in a right cervical level IV territory node measuring 2.6 x 1.6 cm, SUV 4.0. With disease localized to right supraclavicular and right paratracheal lymph nodes, he was interested in pursuing local/regional treatment. His further treatment was complicated by COVID-19 virus infection, from which he had uneventful recovery. His restaging CT scans of the neck and chest on 04/30/2020 did show further progression of the lymphadenopathy, but still with localized involvement. He then began radiation to the right neck/upper chest on 05/04/2020. He completed treatment on 06/15/2020 to a total dose of [address] scans on 09/01/2020 showed no evidence of disease progression. At his follow-up visit on 10/06/2020 he had developed some coughing spells, occasionally with associated hemoptysis. His repeat chest CT on 10/13/2020 showed progression of the right paratracheal mass with apparent extension into the trachea. This was confirmed by bronchoscopy on 10/14/2020, with evidence of exophytic mass originating from the posterior tracheal membrane at the level of about 3.5 to 4 cm below the vocal cords with associated 85 to 90% occlusion of the lumen. Also noted at that time was development of a new metastatic lesion in the liver. He was admitted to [facility] where he underwent a palliative surgical procedure. On 11/17/2020 he began cycle 1 of systemic therapy with modified FOLFOX chemotherapy in combination with Herceptin. He had mild neuropathy lasting 3 days after that treatment. He also had some fatigue, but overall he tolerated it well. He continued with cycle 2 on 12/01/2020. With that treatment he had significantly more toxicity with increased fatigue, more severe neuropathy, and some stomatitis. In the meantime, he had returned to [facility] for re-resection of recurrent tracheal mass. He tolerated the surgery well. He continue with his third cycle of chemotherapy on 12/15/2020, but with omission of the oxaliplatin due to increased neuropathy. The oxaliplatin was restarted at a reduced dosage with cycle 4 on 12/29/2020. His cycle 5 on 01/12/2021 was administered with a further reduction in the oxaliplatin dosage, with omission of the 5-FU bolus, and with a dose reduction in the 5-FU infusion. With those changes, he had just mild neuropathy, but he continued to have severe fatigue. He proceeded with his 6th cycle of treatment on 01/26/2021. He had a follow-up visit at [facility] on 02/02/2021. His restaging CT scans showed a residual partially necrotic lesion involving the right aspect of the trachea along with stable right supraclavicular lymphadenopathy. There was resolution of previously noted metastatic lesion involving hepatic segment 7. With those findings, he was recommended to continue chemotherapy with infusional 5-FU and Herceptin. His schedule treatment on 02/08/2021 was limited to just Herceptin, at his request. He then began treatment with infusional 5-FU in combination with Herceptin on 03/01/2021, administered at a 3-week dosing interval. He had initially tolerated well. However, at his follow-up visit on 06/22/2021 he had become mildly neutropenic and he was also having increased mucositis with the chemotherapy. At that point the 5-FU bolus was omitted and he was given a 20% reduction in the infusional 5-FU dosage. His symptoms subsequently improved, though he still had some treatment related fatigue. His repeat chest CT at [facility] on 08/24/2021 showed continued slight interval decrease in the size of the right supraclavicular and paratracheal lymphadenopathy. He was recommended to continue his same treatment. He received his cycle 18 treatment here on 08/31/2021. His further management was complicated by insurance issues, so that his cycle 19 was delayed until 10/11/2021, and it was administered at [facility]. He presents today for cycle 21 with 5-FU in combination with Herceptin. Other than fatigue he is tolerating the treatment well. He will return for follow-up in 3 weeks with a CBC and CMP. 2. On 10/12/2021 he was admitted to the hospital after presenting to the emergency room with hemoptysis. His bronchoscopy on 10/13/2021 showed no evidence of endotracheal or endobronchial lesion. Slow bleeding was noted from the left upper lobe. There was no evidence of AV malformation. The bleeding resolved with conservative management. Thus far there has been no evidence of recurrence. However, since then he has had persistent hoarseness and some slight difficulty swallowing. The cause for this is uncertain. Dr. Kearns will try and arrange for follow-up with Dr. Nico Quintana who performed the tracheal surgery at [facility]. Signed By: Arely Silva N.P. <<Signature on File>>
== END 2021-11-29 08:04 | disposition home or self-care (01) ==
PROVIDERS: Visit Provider Nurse Practitioner Family
DX: Z51.12 Encounter for antineoplastic immunotherapy (principal); Z51.11 Encounter for antineoplastic chemotherapy; C15.5 Malignant neoplasm of lower third of esophagus; C77.1 Secondary and unspecified malignant neoplasm of intrathoracic lymph nodes; I10 Essential (primary) hypertension; E78.5 Hyperlipidemia, unspecified; E11.9 Type 2 diabetes mellitus without complications; G47.33 Obstructive sleep apnea (adult) (pediatric); M19.90 Unspecified osteoarthritis, unspecified site; H40.89 Other specified glaucoma; Z87.442 Personal history of urinary calculi; Z87.19 Personal history of other diseases of the digestive system
CPT/HCPCS: 80053; 85025; 96367; 96375; 96413; 96416; 99215; J1100; J2469; J7050; J9190; Q5112

== ENCOUNTER 2021-12-01 10:02 | Outpatient (CLI) | payer BC, OTHER, MEDICARE, SELFPAY ==
[2021-12-01] MEDS: sodium chloride 0.9% 1,000 ML 999 ML IV (10:20)
== END 2021-12-01 10:03 | disposition home or self-care (01) ==
PROVIDERS: Visit Provider Internal Medicine Medical Oncology
DX: C15.5 Malignant neoplasm of lower third of esophagus (principal); C77.1 Secondary and unspecified malignant neoplasm of intrathoracic lymph nodes; Z79.899 Other long term (current) drug therapy
CPT/HCPCS: 96360; J7030

== ENCOUNTER 2021-12-22 06:55 | Outpatient (RCR) | payer OTHER, MEDICARE, SELFPAY ==
[2021-12-20 09:04] LABS: Basophils % 0.9 %; Eosinophils # 0.2 10^3/uL (0.0-0.8); Eosinophils % 3.7 %; Hematocrit 43.6 % (42.0-52.0); Hemoglobin 14.4 g/dL (11.7-16.6); Lymphocytes # 0.9 10^3/uL (0.8-4.8); Lymphocytes % 19.6 %; Mean Corpuscular Hemoglobin 30.1 pg (28.0-34.0); Mean Corpuscular Volume 91.2 fl (80-94); Mean Platelet Volume 10.2 fL (7.4-10.4); Monocytes # 0.6 10^3/uL (0.2-0.9); Monocytes % 13.2 %; Neutrophils # 2.82 10^3/uL (1.8-7.7); Neutrophils % 62.2 %; Nucleated Red Blood Cells % 0 %; Platelet Count 202 10^3/cmm (130-400); Red Blood Count 4.78 10^6/uL (4.1-5.3); Red Cell Distribution Width 14.4 % (12.1-15.1); White Blood Count 4.5 10^3/uL (4.0-10.0)
[2021-12-20 09:14] LABS: Alanine Aminotransferase 26 U/L (0-41); Albumin Level 3.9 g/dL (3.5-5.2); Alkaline Phosphatase 118 IU/L (40-130); Anion Gap 13.9 (5-19); Aspartate Amino Transferase 22 U/L (0-40); Blood Urea Nitrogen 9 mg/dL (6-20); Calcium 9.1 mg/dL (8.5-10.5); Carbon Dioxide 26 mmol/L (22-29); Chloride 101 mmol/L (98-107); Globulin 2.3 g/dL (1.3-4.6); Glomerular Filtration Rate 140.4 mL/min (90-130); Glucose 223 mg/dL (65-115); Osmolality Calculated 290 mOsm/kg (285-295); Potassium 3.9 mmol/L (3.5-5.1); Sodium 137 mmol/L (136-145); Total Bilirubin 0.4 mg/dL (0.15-1.2); Total Protein 6.2 g/dL (6.6-8.7)
[2021-12-20] MEDS: loratadine 10 mg Tablet PO (10:55)
[2021-12-20] MEDS: acetaminophen 325 mg Tablet 650 MG PO (10:55)
[2021-12-20] MEDS: palonosetron 0.25 mg/5 mL SDV IV (10:58)
[2021-12-22] MEDS: sodium chloride 0.9% 1,000 ML 999 ML IV (10:28)
--- NOTE | 2021-12-26 21:24 | ONC FU_ITS ---
Arely Silva Progress Note Patient: Ricky Flores Unit #: [id number]: [id number] Dicatated By: Arely Silva N.P.Date of Visit:Dec 20, 2021 Onc MED Follow-up/Prog Note Chief Complaint: Esophageal cancer. 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 His disease was stage IIIB (ypT3, ypN1, M0) at initial diagnosis in June 2018, but with subsequent progression to stage IV (M1). He had presented with iron deficiency anemia and weight loss. He underwent EGD and colonoscopy on 06/15/2018. The colonoscopy showed 2 small sessile polyps in the mid transverse colon, both of which were removed endoscopically. The EGD showed a circumferential and partially obstructing, large size, malignant appearing mass in the lower third esophagus. The stomach and duodenum appeared unremarkable. Biopsy of the esophageal mass showed well-differentiated infiltrating adenocarcinoma with papillary histologic pattern. On subsequent evaluation, the tumor was confirmed to be MSI stable. It did show overexpression of HER-2/quoc, 3+ by IHC and amplification ratio by FISH of 1.8 with 7.3 HER-2 copies/cell. Staging CT scans of the chest, abdomen, and pelvis on 06/15/2018 showed increased soft tissue thickening suggested at the level of the gastroesophageal junction, estimated at 5 cm in width and 4 cm in depth. There was mild thickening of the wall of the distal esophagus. A superior right paratracheal lymph node measured 1.9 x 2.8 cm. The abdomen showed 2 adjacent perigastric lymph nodes near the greater curvature, located between the stomach and pancreas, measuring 1.7 and 2.2 cm. There was no other intra-abdominal or retroperitoneal adenopathy noted, and there was no evidence of other metastatic disease. Staging PET/CT on 06/23/2018 showed a 3 cm hypermetabolic segment of the distal esophagus with SUV 15.0, consistent with primary malignancy. A 2.2 cm gastrohepatic lymph node had SUV 4.1, consistent with local metastatic disease. There was no evidence for other metastatic involvement. The superior right paratracheal lymph node was noted to be FDG negative, consistent with benign disease. He underwent definitive treatment through the [facility]. His treatment included neoadjuvant chemoradiation utilizing weekly carboplatin/Taxol followed by Mike Rusty esophagectomy on 10/30/2018. I do not have the complete pathology report available, but the final staging was IIIB (ypT3, ypN1, M0). He was then followed on observation/expectant management. His surveillance CT scans of the chest, abdomen, and pelvis at [facility] on 01/15/2020 showed interval development of an 8 mm pulmonary nodule in the left major fissure and a 1.1 cm left lower lobe medial basal segment nodule, concerning for metastatic disease. A few other smaller nodules measuring 3 mm or less were also seen in the left lower lobe. There was interval enlargement of the right upper paratracheal lymph node measuring 2 cm. He then underwent EBUS with FNA biopsy of the right paratracheal lymph node on 02/05/2020. Pathology showed metastatic adenocarcinoma consistent with esophageal primary. He had medical oncology follow-up with Dr. Kulwant Knight on 02/13/2020. He was recommended to undergo placement of Port-A-Cath venous access device and to begin a course of chemotherapy with modified FOLFOX. A Foundation One next generation sequencing study also was requested, biut there was insufficient material available to complete the study. A repeat PET/CT on 02/22/2020 showed interval development of 2 malignant lymph nodes, the dominant lesion in the right paratracheal area measuring 2.9 cm with SUV 6.8. The second was a lesion in the right cervical level IV territory measuring 2.6 x 1.6 cm, SUV 4.0. There were no other sites of abnormal FDG uptake on that study. With insufficient tissue sample available for any additional studies, I had requested a Foundation One next generation sequencing study by liquid biopsy. 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 There were no actionable mutations reported. I had seen him for a follow-up visit on 03/27/2020. With his disease apparently localized to the right paratracheal and lower right supraclavicular nodes, he was interested in pursuing local/regional treatment, and he then had radiation oncology consultation with Dr. Fidel Coronado. His further management was complicated by development of COVID-19 virus infection, confirmed on 04/13/2020. Restaging chest CT on 04/30/2020 showed masslike right paratracheal lymphadenopathy measuring 3.8 x 2.7 cm with mild mass-effect on the thoracic trachea. It had increased from 2.7 x 2.5 cm on the February PET/CT. A prominent left hilar lymph node measuring 12 mm appeared unchanged. The fibrotic appearing nodule in the left lower lobe on the January 2020 CT appeared to have resolved. Neck CT showed a large heterogeneous enhancing right supraclavicular lymph node measuring 3.5 x 1.8 cm, increased from 2.6 x 1.9 cm on the February PET/CT. He was able to begin radiation to the involved area in the right neck/upper chest on 05/04/2020. He completed treatment on 06/15/2020 to a total dose of [address] scans of the chest, abdomen, and pelvis on 07/20/2020 showed slight increase in the right paratracheal mass/adenopathy, measuring approximately 4 cm in maximum diameter. There was noted to be increasing tracheal displacement, but that was compared to the January 2020 CT scan. I reviewed the scans with the radiologist, and it appeared that the progression was very minimal. As such, I had recommended that he be just be followed on close observation. Restaging CT scans on 09/01/2020 showed slight interval improvement in the right supraclavicular lymph node measuring 1.9 x 1.5 x 1.2 cm. There was also slight improvement in right paratracheal lymphadenopathy measuring 2.3 x 2.2 x 3.3 cm. There was no evidence of disease progression. His repeat chest CT on 10/13/2020 showed significant progression in the right paratracheal lymphadenopathy. A soft tissue nodule was noted to be extending into the tracheal lumen. Also noted was development of a new lesion in the right lobe of the liver measuring 2.6 x 3.1 cm. Bronchoscopy on 10/14/2020 showed an exophytic mass originating from the posterior tracheal membrane located about 3.5 to 4 cm below the vocal cords. It was noted to occlude approximately 85 to 90% of the lumen. He was transferred urgently to [facility] for admission, and he subsequently underwent a palliative surgical procedure. Repeat CT scans at [facility] on 11/02/2020 showed residual right paratracheal mass measuring 3.3 x 3.0 cm with decreased luminal extension into the trachea. There was unchanged right supraclavicular lymphadenopathy measuring 1.4 x 1.7 cm. There was redemonstration of hepatic metastasis measuring 3.4 x 2.6 cm, with slight interval increase. He then returned here to begin systemic therapy with modified FOLFOX chemotherapy in combination with Herceptin. His other medical illnesses include hypertension, hypertriglyceridemia, type II diabetes, hypothyroidism, androgen deficiency, obstructive sleep apnea, degenerative arthritis, and glaucoma. He also has history of diverticulitis and a history of recurrent episodes of nephrolithiasis. His other surgeries include cataract excision from the left eye, carpal tunnel release on the left, vasectomy, and extracorporeal shockwave lithotripsy. He underwent right total hip arthroplasty on 07/29/2019. He is a non-smoker, but he had chewed tobacco for 35 years, estimated 2 to 3 cans/day. He does not drink alcohol. INTERIM HISTORY: From 11/17/2020 through 01/26/2021 he completed 6 cycles of treatment with modified FOLFOX/Avastin. He had a dose reduction beginning with cycle 4 and a further dose reduction at cycle 5 due to chemotherapy associated neuropathy. Prior to cycle 3, on 12/09/2020, he underwent re-resection of the tracheal mass at [facility]. He had a follow-up visit at [facility] again on 02/02/2021. His restaging CT scans show changes of bronchoscopic tumor debulking with a residual partially necrotic lesion involving the right aspect of the trachea and extending posteriorly. There was stable right supraclavicular lymphadenopathy and there was resolution of the previously noted hepatic segment 7 metastatic lesion. Overall, there was some evidence of response and no evidence of disease progression. With those findings, he was recommended to continue chemotherapy with infusional 5-FU together with Herceptin at a 3-week dosing interval. Due to a previously planned family vacation, his scheduled treatment on 02/08/2021 was limited to just Herceptin. As of 03/01/2021 he restarted infusional 5-FU in combination with Herceptin, and he then continued treatment at 2-week intervals. His repeat chest CT at [facility] on 05/18/2021 showed slight further decrease in the size of the right paratracheal and right supraclavicular lymphadenopathy. Subcarinal lymphadenopathy with punctate calcifications also appeared stable and felt to possibly represent a granulomatous process. There was no evidence of disease progression. He was recommended to continue treatment with Herceptin/infusional 5-FU at a 3-week dosing interval. With cycle 14, on 06/22/2021, the 5-FU bolus was omitted and the infusional 5-FU dosage was reduced by 20% due to neutropenia and worsening mucositis. As of his followup with Dr. Clemens at [facility] on 08/24/[address] scan showed slight interval decrease in size of right supraclavicular and paratracheal lymphadenopathy. He was recommended to continue his same treatment. He began cycle 18 of Herceptin/infusional 5-FU on 08/31/2021. His further treatment was then complicated due to problems with insurance coverage for his chemotherapy administered locally. He eventually was given cycle [address] [facility] on 10/11/2021. On 10/12/2021 he was admitted to the hospital after presenting to the emergency room with hemoptysis. Chest CT showed centrilobular opacities in the right lower lobe, possiby representing endobronchial infection or aspiration. Bronchoscopy on 10/13/2021 showed no endotracheal or endobronchial lesions. Slow active bleeding was noted from the left upper lobe. There was no evidence of AV malformation. He was discharged home the following day. Patient presents today for follow-up visit. He continues to have fatigue but otherwise feeling okay. His appetite has been pretty good. No fevers, chills, night sweats. No sinus drainage or congestion. He continues to have voice hoarseness and he has an appointment with ENT on for further evaluation. He denies any GI or problems. He has no joint or muscle pain. No headaches or dizziness. Review Of Symptoms: See above. Past Medical History: Anemia Degenerative arthritis Diverticulitis Glaucoma of the left eye Hypertension Hypertriglyceridemia Hypogonadism Hypothyroidism Obstructive sleep apnea Renal calculi Type II diabetes Past Surgical History: Cataract excision left eye Left carpal tunnel release Vasectomy EGD and colonoscopy in 2018 Extracorporeal shockwave lithotripsy x 2 in 2011 Allergies: Morphine Sulfate Medications: Bystolic 1 Tablet (of 10 mg) Oral daily Dronabinol 1 (5 mg) Capsule Oral b.i.d. Fluconazole 1 Tablet (of 100 mg) Oral daily Gabapentin 1 Capsule (of 300 mg) Oral b.i.d. Glimepiride 1 Tablet (of 4 mg) Oral b.i.d. HumaLOG 200 Units (of 100 Units/mL) Subcutaneous PRN Lantus 40 Units (of 100 Units/mL) Subcutaneous daily Levothyroxine Sodium 1 Tablet (of 175 mcg) Oral daily Nitrofurantoin Macrocrystal 1 Capsule (of 100 mg) Oral daily oxyCODONE HCl 1 (5 mg) Tablet Oral q 4 hours PRN Pantoprazole Sodium 1 Tablet (of 40 mg) Tablet, enteric coated Oral daily Tamsulosin HCl 1 Cartridge (of 0.4 mg) Capsule Oral b.i.d. Timolol Maleate 1 Drop(s) (of 0.5 %) Solution Ophthalmic daily Family History: Mr. Flores's mother is alive. Mr. Flores's father is alive: heart disease. Mr. Flores has 3 brothers: 3 alive. Father has heart disease and is still living at age 87. Mother still living and in good health at age 82. Two brothers have diabetes, and one also has heart disease. 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 Mr. Flores has never smoked. He has no history of drinking. He has indicated exposure to the following products: chewing tobacco. He is a nonsmoker, he does have a history of chewing tobacco for 35 years, estimated 2-3 cans per day. He does not drink alcohol. Physical Examination: Performed on Dec 20, 2021 10:11: Height - 75.00 in, Weight - 242.0 lbs, BSA - 2.38 sq.m, BMI - 30.25 (HIGH), Temperature - 97.6 F (LOW), Pulse - 62 /min, Respiration - 18 /min, BP - 147/87 mm(hg) (HIGH), O2 Sat - 96 %, Pain - 0, and Fatigue - 6. Performance Status: 1 - No physically strenuous activity, but ambulatory and able to carry out light or sedentary work (e.g. office work, light house work). (ECOG) Constitutional Alert, cooperative, oriented. Mood and affect appropriate. Appears close to chronological age. Well nourished. Well developed. Head Normocephalic; no scars. Respiratory Lungs are clear to auscultation without rhonchi or wheezing. Cardiovascular Regular rate and rhythm of heart without murmurs, gallops or rubs. Abdomen Non-tender, non-distended, no masses, ascites or hepatosplenomegaly. Good bowel sounds. No guarding or rebound tenderness. Extremities No visible deformities, no cyanosis, clubbing or edema. Pulses 3+ and equal bilaterally. Musculoskeletal No tenderness or swelling, normal range of motion without obvious weakness. Psychiatric Alert and oriented times three. Coherent speech. Verbalizes understanding of our discussions today. Laboratory: Test performed on Dec 20, 2021 08:45 Sodium 137 mmol/L Potassium 3.9 mmol/L Chloride 101 mmol/L CO2 26 mmol/L Anion Gap 13.9 BUN 9 mg/dL Creatinine 0.6 mg/dL Cr Clearance (Est) 218.5300 mL/min eGFR 140.4 mL/min Glucose 223 mg/dL Osmolality - Calculated 290 mOsm/kg Calcium 9.1 mg/dL Protein, Total 6.2 g/dL Albumin 3.9 g/dL Globulin 2.3 g/dL Bilirubin, Total 0.4 mg/dL ALT (SGPT) 26 U/L AST (SGOT) 22 U/L Alkaline Phosphatase 118 IU/L WBC 4.5 10 3/uL RBC 4.78 10 6/uL HGB 14.4 g/dL HCT 43.6 % MCV 91.2 fl MCH 30.1 pg MCHC 33.0 g/dL RDW 14.4 % Platelet Count 202 10 3/cmm MPV 10.2 fL Neutrophils 2.82 10 3/uL Lymphocytes 0.9 10 3/uL Monocytes 0.6 10 3/uL Eosinophils 0.2 10 3/uL Basophils 0.0 10 3/uL Neutrophil % 62.2 % Lymphocyte % 19.6 % Monocyte % 13.2 % Eosinophil % 3.7 % Basophils % 0.9 % NRBC % 0 % Test performed on Nov 02, 2021 08:20 TSH 0.11 uIU/mL Est Avg Glucose (eAG) 226 mg/dL Hemoglobin A1C % 9.5 % Impression: 1. Well differentiated infiltrating adenocarcinoma involving the lower third of the esophagus, HER-2/quoc positive. He disease was stage IIIB (ypT3, ypN1, M0) at initial diagnosis in June 2018, but with subsequent progression to stage IV (M1), with involvement in the right paratracheal lymph node confirmed by EBUS/FNA biopsy on 02/05/2020. His next generation sequencing study by liquid biopsy showed no actionable mutations. 2. Hypertension. 3. Hyperlipidemia. 4. Type II diabetes. 5. Obstructive sleep apnea. 6. Degenerative arthritis. 7. He has posttraumatic glaucoma of the left eye. 8. He has a history of recurrent episodes of nephrolithiasis. 9. He has a history of diverticulitis. Plan: 1. Patient with well differentiated infiltrating adenocarcinoma involving the lower third of the esophagus, HER-2/quoc positive. He disease was stage IIIB (ypT3, ypN1, M0) at initial diagnosis in June 2018. His initial treatment included neoadjuvant chemoradiation utilizing weekly carboplatin/Taxol followed by Mike Rusty esophagectomy on 10/30/2018. He had subsequent progression to stage IV (M1), with involvement in the right paratracheal lymph node confirmed by EBUS/FNA biopsy on 02/05/2020. His staging PET/CT showed uptake in the known involved right paratracheal lymph node and an additional area of uptake in a right cervical level IV territory node measuring 2.6 x 1.6 cm, SUV 4.0. With disease localized to right supraclavicular and right paratracheal lymph nodes, he was interested in pursuing local/regional treatment. His further treatment was complicated by COVID-19 virus infection, from which he had uneventful recovery. His restaging CT scans of the neck and chest on 04/30/2020 did show further progression of the lymphadenopathy, but still with localized involvement. He then began radiation to the right neck/upper chest on 05/04/2020. He completed treatment on 06/15/2020 to a total dose of [address] scans on 09/01/2020 showed no evidence of disease progression. At his follow-up visit on 10/06/2020 he had developed some coughing spells, occasionally with associated hemoptysis. His repeat chest CT on 10/13/2020 showed progression of the right paratracheal mass with apparent extension into the trachea. This was confirmed by bronchoscopy on 10/14/2020, with evidence of exophytic mass originating from the posterior tracheal membrane at the level of about 3.5 to 4 cm below the vocal cords with associated 85 to 90% occlusion of the lumen. Also noted at that time was development of a new metastatic lesion in the liver. He was admitted to [facility] where he underwent a palliative surgical procedure. On 11/17/2020 he began cycle 1 of systemic therapy with modified FOLFOX chemotherapy in combination with Herceptin. He had mild neuropathy lasting 3 days after that treatment. He also had some fatigue, but overall he tolerated it well. He continued with cycle 2 on 12/01/2020. With that treatment he had significantly more toxicity with increased fatigue, more severe neuropathy, and some stomatitis. In the meantime, he had returned to [facility] for re-resection of recurrent tracheal mass. He tolerated the surgery well. He continue with his third cycle of chemotherapy on 12/15/2020, but with omission of the oxaliplatin due to increased neuropathy. The oxaliplatin was restarted at a reduced dosage with cycle 4 on 12/29/2020. His cycle 5 on 01/12/2021 was administered with a further reduction in the oxaliplatin dosage, with omission of the 5-FU bolus, and with a dose reduction in the 5-FU infusion. With those changes, he had just mild neuropathy, but he continued to have severe fatigue. He proceeded with his 6th cycle of treatment on 01/26/2021. He had a follow-up visit at [facility] on 02/02/2021. His restaging CT scans showed a residual partially necrotic lesion involving the right aspect of the trachea along with stable right supraclavicular lymphadenopathy. There was resolution of previously noted metastatic lesion involving hepatic segment 7. With those findings, he was recommended to continue chemotherapy with infusional 5-FU and Herceptin. His schedule treatment on 02/08/2021 was limited to just Herceptin, at his request. He then began treatment with infusional 5-FU in combination with Herceptin on 03/01/2021, administered at a 3-week dosing interval. He had initially tolerated well. However, at his follow-up visit on 06/22/2021 he had become mildly neutropenic and he was also having increased mucositis with the chemotherapy. At that point the 5-FU bolus was omitted and he was given a 20% reduction in the infusional 5-FU dosage. His symptoms subsequently improved, though he still had some treatment related fatigue. His repeat chest CT at [facility] on 08/24/2021 showed continued slight interval decrease in the size of the right supraclavicular and paratracheal lymphadenopathy. He was recommended to continue his same treatment. He received his cycle 18 treatment here on 08/31/2021. His further management was complicated by insurance issues, so that his cycle 19 was delayed until 10/11/2021, and it was administered at [facility]. He presents today for cycle 22 with 5-FU in combination with Herceptin. Other than fatigue he is tolerating the treatment well. He will return for follow-up in 3 weeks with a CBC and CMP. 2. On 10/12/2021 he was admitted to the hospital after presenting to the emergency room with hemoptysis. His bronchoscopy on 10/13/2021 showed no evidence of endotracheal or endobronchial lesion. Slow bleeding was noted from the left upper lobe. There was no evidence of AV malformation. The bleeding resolved with conservative management. Thus far there has been no evidence of recurrence. However, since then he has had persistent hoarseness and some slight difficulty swallowing. He has an appointment with ENT on 12/23/2021 to further evaluate. Signed By: Arely Silva N.P. <<Signature on File>>
== END 2022-01-01 23:59 | disposition home or self-care (01) ==
LOC: ONCMED 06:55
PROVIDERS: Visit Provider Internal Medicine Medical Oncology
DX: Z51.12 Encounter for antineoplastic immunotherapy (principal); Z51.11 Encounter for antineoplastic chemotherapy; C15.5 Malignant neoplasm of lower third of esophagus; C77.8 Secondary and unspecified malignant neoplasm of lymph nodes of multiple regions; I10 Essential (primary) hypertension; E78.5 Hyperlipidemia, unspecified; E11.9 Type 2 diabetes mellitus without complications; G47.33 Obstructive sleep apnea (adult) (pediatric); M19.90 Unspecified osteoarthritis, unspecified site; H40.89 Other specified glaucoma; Z87.442 Personal history of urinary calculi; Z87.19 Personal history of other diseases of the digestive system; Z79.899 Other long term (current) drug therapy
CPT/HCPCS: 80053; 85025; 96360; 96367; 96375; 96413; 96416; 99215; J1100; J2469; J7030; J7050; J9190; J9355; Q5114

== ENCOUNTER 2022-02-01 08:00 | Oncology outpatient (recurring) (ONCR) | payer OTHER, MEDICARE, SELFPAY ==
[2022-01-10 08:29] LABS: Basophils % 1.1 %; Eosinophils # 0.1 10^3/uL (0.0-0.8); Eosinophils % 3.6 %; Hematocrit 41.8 % (42.0-52.0); Hemoglobin 14.3 g/dL (11.7-16.6); Lymphocytes # 0.8 10^3/uL (0.8-4.8); Lymphocytes % 21.9 %; Mean Corpuscular HGB Conc 34.2 g/dL (30.0-36.0); Mean Corpuscular Volume 90.7 fl (80-94); Mean Platelet Volume 9.8 fL (7.4-10.4); Monocytes # 0.6 10^3/uL (0.2-0.9); Monocytes % 15.3 %; Neutrophils # 2.08 10^3/uL (1.8-7.7); Neutrophils % 57.8 %; Nucleated Red Blood Cells % 0 %; Platelet Count 202 10^3/cmm (130-400); Red Blood Count 4.61 10^6/uL (4.1-5.3); Red Cell Distribution Width 14.9 % (12.1-15.1); White Blood Count 3.6 10^3/uL (4.0-10.0)
[2022-01-10 08:45] LABS: Alanine Aminotransferase 28 U/L (0-41); Albumin Level 3.8 g/dL (3.5-5.2); Alkaline Phosphatase 96 IU/L (40-130); Aspartate Amino Transferase 24 U/L (0-40); Blood Urea Nitrogen 6 mg/dL (6-20); Carbon Dioxide 28 mmol/L (22-29); Chloride 104 mmol/L (98-107); Globulin 2.4 g/dL (1.3-4.6); Glomerular Filtration Rate 173.3 mL/min (90-130); Glucose 190 mg/dL (65-115); Osmolality Calculated 293 mOsm/kg (285-295); Sodium 140 mmol/L (136-145); Total Bilirubin 0.4 mg/dL (0.15-1.2); Total Protein 6.2 g/dL (6.6-8.7)
[2022-01-10 08:47] LABS: Anion Gap 11.4 (5-19); Potassium 3.4 mmol/L (3.5-5.1)
[2022-01-10] MEDS: acetaminophen 325 mg Tablet 650 MG PO (10:05)
[2022-01-10] MEDS: sodium chloride 0.9% 250 ML 75 ML IV (10:05)
[2022-01-10] MEDS: loratadine 10 mg Tablet PO (10:05)
[2022-01-10] MEDS: palonosetron 0.25 mg/5 mL SDV IVP (10:10)
[2022-01-10] MEDS: fluorouraciL 4,650 MG, elastomeric pump 1 PUMP in sodium chloride 0.9% (100 ml) 0 ML IV (11:37)
[2022-01-10 11:40] VITALS: BP 135/79; PULSE 48; RESP 16; TEMP 36.6; O2SAT 98
[2022-01-12 09:45] VITALS: BP 147/87; PULSE 68; RESP 16; TEMP 36.2; O2SAT 99
[2022-01-12] MEDS: sodium chloride 0.9% 1,000 ML 999 ML IV (09:49)
[2022-02-01 08:22] LABS: Basophils % 0.6 %; Eosinophils # 0.2 10^3/uL (0.0-0.8); Eosinophils % 3.5 %; Hematocrit 41.8 % (42.0-52.0); Hemoglobin 13.9 g/dL (11.7-16.6); Lymphocytes # 0.9 10^3/uL (0.8-4.8); Lymphocytes % 17.4 %; Mean Corpuscular HGB Conc 33.3 g/dL (30.0-36.0); Mean Corpuscular Hemoglobin 30.3 pg (28.0-34.0); Mean Corpuscular Volume 91.1 fl (80-94); Monocytes # 0.6 10^3/uL (0.2-0.9); Neutrophils # 3.41 10^3/uL (1.8-7.7); Neutrophils % 66.1 %; Nucleated Red Blood Cells % 0 %; Platelet Count 176 10^3/cmm (130-400); Red Blood Count 4.59 10^6/uL (4.1-5.3); Red Cell Distribution Width 14.6 % (12.1-15.1); White Blood Count 5.2 10^3/uL (4.0-10.0)
[2022-02-01 08:49] LABS: Alanine Aminotransferase 24 U/L (0-41); Alkaline Phosphatase 109 IU/L (40-130); Aspartate Amino Transferase 21 U/L (0-40); Blood Urea Nitrogen 7 mg/dL (6-20); Calcium 8.6 mg/dL (8.5-10.5); Carbon Dioxide 28 mmol/L (22-29); Chloride 101 mmol/L (98-107); Globulin 1.7 g/dL (1.3-4.6); Glomerular Filtration Rate 140.4 mL/min (90-130); Glucose 302 mg/dL (65-115); Osmolality Calculated 291 mOsm/kg (285-295); Sodium 136 mmol/L (136-145); Total Bilirubin 0.3 mg/dL (0.15-1.2); Total Protein 5.7 g/dL (6.6-8.7)
[2022-02-01 08:59] LABS: Anion Gap 10.8 (5-19); Potassium 3.8 mmol/L (3.5-5.1)
[2022-02-01] MEDS: sodium chloride 0.9% 250 ML 75 ML IV (10:00)
[2022-02-01] MEDS: loratadine 10 mg Tablet PO (10:00)
[2022-02-01] MEDS: palonosetron 0.25 mg/5 mL SDV IVP (10:00)
[2022-02-01] MEDS: acetaminophen 325 mg Tablet 650 MG PO (10:02)
[2022-02-01] MEDS: ketorolac 30 mg/mL INJ IVP (10:32)
[2022-02-01] MEDS: fluorouraciL 4,650 MG, elastomeric pump 1 PUMP in sodium chloride 0.9% (100 ml) 0 ML IV (11:50)
[2022-02-01 12:00] VITALS: BP 166/90; PULSE 48; RESP 16; TEMP 36.1; O2SAT 96
== END 2022-02-01 23:59 | disposition home or self-care (01) ==
PROVIDERS: Nurse Practitioner Family; PCP Internal Medicine; Visit Provider Internal Medicine Medical Oncology
DX: Z51.12 Encounter for antineoplastic immunotherapy (principal); C15.5 Malignant neoplasm of lower third of esophagus; C77.1 Secondary and unspecified malignant neoplasm of intrathoracic lymph nodes; G62.0 Drug-induced polyneuropathy; T45.1X5A Adverse effect of antineoplastic and immunosuppressive drugs, initial encounter; J38.01 Paralysis of vocal cords and larynx, unilateral; F17.290 Nicotine dependence, other tobacco product, uncomplicated; Z51.11 Encounter for antineoplastic chemotherapy; Z79.899 Other long term (current) drug therapy
CPT/HCPCS: 80053; 85025; 96367; 96375; 96413; 96416; 96523; 99214; J1100; J1885; J2469; J7030; J7050; J9190; Q5114

== ENCOUNTER 2022-02-23 11:00 | Oncology outpatient (recurring) (ONCR) | payer OTHER, MEDICARE, SELFPAY ==
[2022-02-03 10:30] VITALS: BP 147/74; PULSE 50; RESP 18; TEMP 36.3; O2SAT 98
[2022-02-21 08:14] VITALS: BMI 29.7
[2022-02-21 08:25] LABS: Basophils % 0.8 %; Eosinophils # 0.2 10^3/uL (0.0-0.8); Eosinophils % 3.2 %; Hematocrit 42.6 % (42.0-52.0); Hemoglobin 14.4 g/dL (11.7-16.6); Lymphocytes # 1.1 10^3/uL (0.8-4.8); Lymphocytes % 21.6 %; Mean Corpuscular HGB Conc 33.8 g/dL (30.0-36.0); Mean Corpuscular Hemoglobin 30.1 pg (28.0-34.0); Mean Corpuscular Volume 89.1 fl (80-94); Monocytes # 0.7 10^3/uL (0.2-0.9); Monocytes % 13.6 %; Neutrophils % 60.6 %; Nucleated Red Blood Cells % 0 %; Platelet Count 196 10^3/cmm (130-400); Red Blood Count 4.78 10^6/uL (4.1-5.3); Red Cell Distribution Width 14.7 % (12.1-15.1); White Blood Count 5.3 10^3/uL (4.0-10.0)
[2022-02-21 08:44] LABS: Alanine Aminotransferase 23 U/L (0-41); Albumin Level 4.3 g/dL (3.5-5.2); Alkaline Phosphatase 126 IU/L (40-130); Anion Gap 11.5 (5-19); Aspartate Amino Transferase 20 U/L (0-40); Blood Urea Nitrogen 8 mg/dL (6-20); Calcium 8.8 mg/dL (8.5-10.5); Carbon Dioxide 29 mmol/L (22-29); Chloride 104 mmol/L (98-107); Globulin 2.1 g/dL (1.3-4.6); Glomerular Filtration Rate 173.3 mL/min (90-130); Glucose 121 mg/dL (65-115); Osmolality Calculated 292 mOsm/kg (285-295); Potassium 3.5 mmol/L (3.5-5.1); Sodium 141 mmol/L (136-145); Total Bilirubin 0.3 mg/dL (0.15-1.2); Total Protein 6.4 g/dL (6.6-8.7)
[2022-02-21] MEDS: loratadine 10 mg Tablet PO (10:08)
[2022-02-21] MEDS: acetaminophen 325 mg Tablet 650 MG PO (10:08)
[2022-02-21] MEDS: sodium chloride 0.9% 250 ML 100 ML IV (10:10)
[2022-02-21] MEDS: palonosetron 0.25 mg/5 mL SDV IVP (10:12)
[2022-02-21] MEDS: fluorouraciL 4,650 MG, elastomeric pump 1 PUMP in sodium chloride 0.9% (100 ml) 0 ML IV (11:48)
[2022-02-21 12:15] VITALS: BP 123/76; PULSE 63; RESP 16; TEMP 35.8; O2SAT 98
[2022-02-23] MEDS: sodium chloride 0.9% 1,000 ML 999 ML IV (11:10)
[2022-02-23 11:12] VITALS: BP 150/82; PULSE 48; RESP 16; TEMP 36.2; O2SAT 96
== END 2022-03-03 23:59 | disposition home or self-care (01) ==
PROVIDERS: Nurse Practitioner Family; PCP Internal Medicine; Visit Provider Internal Medicine Medical Oncology
DX: C15.5 Malignant neoplasm of lower third of esophagus (principal); Z53.9 Procedure and treatment not carried out, unspecified reason; C77.1 Secondary and unspecified malignant neoplasm of intrathoracic lymph nodes; Z79.899 Other long term (current) drug therapy
CPT/HCPCS: 80053; 85025; 96360; 96367; 96375; 96413; 96416; 96523; 99214; J1100; J2469; J7030; J7050; J9190; Q5114

== ENCOUNTER 2022-03-30 11:00 | Oncology outpatient (recurring) (ONCR) | payer OTHER, MEDICARE, SELFPAY ==
[2022-03-14 08:17] VITALS: BMI 29.4
[2022-03-14 08:24] LABS: Basophils # 0.1 10^3/uL (0.0-0.1); Basophils % 0.9 %; Eosinophils # 0.2 10^3/uL (0.0-0.8); Hematocrit 44.7 % (42.0-52.0); Hemoglobin 14.7 g/dL (11.7-16.6); Lymphocytes # 1.1 10^3/uL (0.8-4.8); Lymphocytes % 19.8 %; Mean Corpuscular HGB Conc 32.9 g/dL (30.0-36.0); Mean Corpuscular Hemoglobin 29.3 pg (28.0-34.0); Mean Corpuscular Volume 89.2 fl (80-94); Mean Platelet Volume 9.7 fL (7.4-10.4); Monocytes # 0.7 10^3/uL (0.2-0.9); Monocytes % 12.1 %; Nucleated Red Blood Cells % 0 %; Platelet Count 225 10^3/cmm (130-400); Red Blood Count 5.01 10^6/uL (4.1-5.3); Red Cell Distribution Width 14.6 % (12.1-15.1); White Blood Count 5.6 10^3/uL (4.0-10.0)
[2022-03-14 08:43] LABS: Alanine Aminotransferase 24 U/L (0-41); Albumin Level 4.3 g/dL (3.5-5.2); Alkaline Phosphatase 115 IU/L (40-130); Anion Gap 13.7 (5-19); Aspartate Amino Transferase 20 U/L (0-40); Blood Urea Nitrogen 6 mg/dL (6-20); Calcium 8.8 mg/dL (8.5-10.5); Carbon Dioxide 28 mmol/L (22-29); Chloride 102 mmol/L (98-107); Globulin 2.2 g/dL (1.3-4.6); Glomerular Filtration Rate 140.4 mL/min (90-130); Glucose 97 mg/dL (65-115); Osmolality Calculated 288 mOsm/kg (285-295); Potassium 3.7 mmol/L (3.5-5.1); Sodium 140 mmol/L (136-145); Total Bilirubin 0.4 mg/dL (0.15-1.2); Total Protein 6.5 g/dL (6.6-8.7)
[2022-03-14] MEDS: loratadine 10 mg Tablet PO (10:38)
[2022-03-14] MEDS: acetaminophen 325 mg Tablet 650 MG PO (10:38)
[2022-03-14] MEDS: sodium chloride 0.9% 250 ML 75 ML IV (10:38)
[2022-03-14] MEDS: palonosetron 0.25 mg/5 mL SDV IVP (10:44)
[2022-03-14] MEDS: fluorouraciL 4,650 MG, elastomeric pump 1 PUMP in sodium chloride 0.9% (100 ml) 0 ML IV (12:05)
[2022-03-14 12:20] VITALS: BP 128/85; PULSE 47; RESP 18; TEMP 35.9; O2SAT 97
[2022-03-16] MEDS: sodium chloride 0.9% 1,000 ML 999 ML IV (10:21)
[2022-03-16 11:40] VITALS: BP 115/71; PULSE 58; RESP 18; TEMP 35.8; O2SAT 97
[2022-03-28 08:55] LABS: Basophils % 0.4 %; Eosinophils # 0.2 10^3/uL (0.0-0.8); Eosinophils % 2.3 %; Hematocrit 40.8 % (42.0-52.0); Hemoglobin 13.4 g/dL (11.7-16.6); Lymphocytes % 12.9 %; Mean Corpuscular HGB Conc 32.8 g/dL (30.0-36.0); Mean Corpuscular Volume 91.3 fl (80-94); Mean Platelet Volume 10.6 fL (7.4-10.4); Monocytes # 0.7 10^3/uL (0.2-0.9); Monocytes % 9.1 %; Neutrophils # 5.77 10^3/uL (1.8-7.7); Neutrophils % 74.9 %; Nucleated Red Blood Cells % 0 %; Platelet Count 177 10^3/cmm (130-400); Red Blood Count 4.47 10^6/uL (4.1-5.3); Red Cell Distribution Width 15.3 % (12.1-15.1); White Blood Count 7.7 10^3/uL (4.0-10.0)
[2022-03-28 09:18] LABS: Alanine Aminotransferase 19 U/L (0-41); Albumin Level 3.8 g/dL (3.5-5.2); Alkaline Phosphatase 102 IU/L (40-130); Anion Gap 11.7 (5-19); Aspartate Amino Transferase 17 U/L (0-40); Blood Urea Nitrogen 4 mg/dL (6-20); Calcium 8.4 mg/dL (8.5-10.5); Carbon Dioxide 30 mmol/L (22-29); Chloride 102 mmol/L (98-107); Globulin 1.8 g/dL (1.3-4.6); Glomerular Filtration Rate 173.3 mL/min (90-130); Glucose 266 mg/dL (65-115); Osmolality Calculated 296 mOsm/kg (285-295); Potassium 3.7 mmol/L (3.5-5.1); Sodium 140 mmol/L (136-145); Total Bilirubin 0.5 mg/dL (0.15-1.2); Total Protein 5.6 g/dL (6.6-8.7)
[2022-03-28] MEDS: sodium chloride 0.9% 250 ML 100 ML IV (10:51)
[2022-03-28] MEDS: acetaminophen 325 mg Tablet 650 MG PO (10:52)
[2022-03-28] MEDS: palonosetron 0.25 mg/5 mL SDV IVP (10:52)
[2022-03-28] MEDS: loratadine 10 mg Tablet PO (10:52)
[2022-03-28] MEDS: ketorolac 30 mg/mL INJ IVP (11:24)
[2022-03-28] MEDS: fluorouraciL 4,650 MG, elastomeric pump 1 PUMP in sodium chloride 0.9% (100 ml) 0 ML IV (12:32)
[2022-03-30 10:48] VITALS: BP 167/84; PULSE 45; RESP 16; TEMP 36.3; O2SAT 97
[2022-03-30] MEDS: sodium chloride 0.9% 1,000 ML 999 ML IV (10:54)
[2022-03-30 12:03] VITALS: BP 168/96; PULSE 48; RESP 16; TEMP 36.2; O2SAT 96
== END 2022-04-03 23:59 | disposition home or self-care (01) ==
PROVIDERS: Nurse Practitioner Family; PCP Internal Medicine; Visit Provider Internal Medicine Medical Oncology
DX: Z45.2 Encounter for adjustment and management of vascular access device (principal); Z53.9 Procedure and treatment not carried out, unspecified reason
CPT/HCPCS: 80053; 85025; 96365; 96367; 96375; 96413; 96416; 96523; 99215; J1100; J1885; J2469; J7030; J7050; J9190; Q5114

== ENCOUNTER 2022-05-04 10:30 | Oncology outpatient (recurring) (ONCR) | payer OTHER, MEDICARE, SELFPAY ==
[2022-04-18 08:42] LABS: Basophils # 0.1 10^3/uL (0.0-0.1); Basophils % 0.9 %; Eosinophils # 0.2 10^3/uL (0.0-0.8); Eosinophils % 3.7 %; Hematocrit 46.4 % (42.0-52.0); Hemoglobin 15.2 g/dL (11.7-16.6); Lymphocytes # 1.1 10^3/uL (0.8-4.8); Lymphocytes % 20.3 %; Mean Corpuscular HGB Conc 32.8 g/dL (30.0-36.0); Mean Corpuscular Volume 91.7 fl (80-94); Mean Platelet Volume 10.5 fL (7.4-10.4); Monocytes # 0.8 10^3/uL (0.2-0.9); Neutrophils # 3.29 10^3/uL (1.8-7.7); Neutrophils % 60.9 %; Nucleated Red Blood Cells % 0 %; Platelet Count 196 10^3/cmm (130-400); Red Blood Count 5.06 10^6/uL (4.1-5.3); Red Cell Distribution Width 15.4 % (12.1-15.1); White Blood Count 5.4 10^3/uL (4.0-10.0)
[2022-04-18 09:14] LABS: Alanine Aminotransferase 23 U/L (0-41); Alkaline Phosphatase 129 IU/L (40-130); Aspartate Amino Transferase 23 U/L (0-40); Blood Urea Nitrogen 5 mg/dL (6-20); Calcium 8.5 mg/dL (8.5-10.5); Carbon Dioxide 29 mmol/L (22-29); Chloride 102 mmol/L (98-107); Globulin 2.3 g/dL (1.3-4.6); Glomerular Filtration Rate 140.4 mL/min (90-130); Glucose 113 mg/dL (65-115); Osmolality Calculated 288 mOsm/kg (285-295); Sodium 140 mmol/L (136-145); Total Bilirubin 0.4 mg/dL (0.15-1.2); Total Protein 6.3 g/dL (6.6-8.7)
[2022-04-18 09:20] LABS: Anion Gap 12.9 (5-19); Potassium 3.9 mmol/L (3.5-5.1)
[2022-04-18] MEDS: acetaminophen 325 mg Tablet 650 MG PO (09:28)
[2022-04-18] MEDS: sodium chloride 0.9% 250 ML 75 ML IV (09:28)
[2022-04-18] MEDS: palonosetron 0.25 mg/5 mL SDV IVP (09:29)
[2022-04-18] MEDS: loratadine 10 mg Tablet PO (09:29)
[2022-04-18] MEDS: fluorouraciL 4,650 MG, elastomeric pump 1 PUMP in sodium chloride 0.9% (100 ml) 0 ML IV (10:58)
[2022-04-18 11:00] VITALS: BP 159/84; PULSE 46; RESP 16; TEMP 36; O2SAT 97
--- NOTE | 2022-04-19 11:09 | PC.NURSE ---
patient returned to office, chemo pump accidentally disconnected by patient at home at 7 pm on 04/18/22. some chemo spillage noted, end contaminated by floor. patient reconnected tubing and reported to ER. ER told the patient that they could not do anything with it and to return to onc clininc the next day. patient had clamped all clamps on pump and PAC access. spoke with dr givens, pump still full. Dr givens advised for pump to be d/c today and patient to retrun to clinic for next scheduled treatment. discussed with patient physician directions, patient agreed to plan, APC deaccessed without flushing as there was clotted blood in tubing. chemo excess disposed of in black bin. patient PAC reaccessed, flushed BR+ and deaccessed. bandaid to site. pt appt rescheduled for 2 weeks for treatment.
[2022-05-02 09:24] LABS: Basophils # 0.1 10^3/uL (0.0-0.1); Basophils % 0.8 %; Eosinophils # 0.2 10^3/uL (0.0-0.8); Eosinophils % 3.5 %; Hematocrit 46.3 % (42.0-52.0); Hemoglobin 15.7 g/dL (11.7-16.6); Lymphocytes # 1.2 10^3/uL (0.8-4.8); Mean Corpuscular HGB Conc 33.9 g/dL (30.0-36.0); Mean Corpuscular Hemoglobin 30.3 pg (28.0-34.0); Mean Corpuscular Volume 89.2 fl (80-94); Monocytes # 0.5 10^3/uL (0.2-0.9); Monocytes % 8.8 %; Neutrophils # 4.01 10^3/uL (1.8-7.7); Neutrophils % 66.4 %; Nucleated Red Blood Cells % 0 %; Platelet Count 191 10^3/cmm (130-400); Red Blood Count 5.19 10^6/uL (4.1-5.3); Red Cell Distribution Width 15.1 % (12.1-15.1)
[2022-05-02 09:46] LABS: Alanine Aminotransferase 27 U/L (0-41); Albumin Level 4.1 g/dL (3.5-5.2); Alkaline Phosphatase 114 U/L (40-130); Anion Gap 15.7 (5-19); Aspartate Amino Transferase 27 U/L (0-40); Blood Urea Nitrogen 9 mg/dL (6-20); Carbon Dioxide 28 mmol/L (22-29); Chloride 102 mmol/L (98-107); Globulin 2.3 g/dL (1.3-4.6); Glomerular Filtration Rate 173.3 mL/min (90-130); Glucose 171 mg/dL (65-115); Osmolality Calculated 297 mOsm/kg (285-295); Potassium 3.7 mmol/L (3.5-5.1); Sodium 142 mmol/L (136-145); Total Bilirubin 0.4 mg/dL (0.15-1.2); Total Protein 6.4 g/dL (6.6-8.7)
[2022-05-02] MEDS: sodium chloride 0.9% 250 ML 76 ML IV (10:59)
[2022-05-02] MEDS: palonosetron 0.25 mg/5 mL SDV IVP (10:59)
[2022-05-02] MEDS: loratadine 10 mg Tablet PO (11:01)
[2022-05-02] MEDS: acetaminophen 325 mg Tablet 650 MG PO (11:01)
[2022-05-02] MEDS: fluorouraciL 4,650 MG, elastomeric pump 1 PUMP in sodium chloride 0.9% (100 ml) 0 ML IV (12:32)
[2022-05-02 12:40] VITALS: BP 145/85; PULSE 48; RESP 16; TEMP 35.8; O2SAT 98
[2022-05-04 10:40] VITALS: BP 154/88; PULSE 57; RESP 18; TEMP 36.3; O2SAT 98; BMI 29.5
[2022-05-04] MEDS: sodium chloride 0.9% 500 ML 999 ML IV (10:53)
[2022-05-04 11:47] VITALS: BP 159/88; PULSE 54; RESP 18; TEMP 36.2; O2SAT 97
== END 2022-05-04 23:59 | disposition home or self-care (01) ==
PROVIDERS: Nurse Practitioner; PCP Internal Medicine; Visit Provider Internal Medicine Medical Oncology
DX: C15.5 Malignant neoplasm of lower third of esophagus (principal); C77.1 Secondary and unspecified malignant neoplasm of intrathoracic lymph nodes; Z79.899 Other long term (current) drug therapy; Z45.2 Encounter for adjustment and management of vascular access device
CPT/HCPCS: 80053; 85025; 96365; 96367; 96375; 96413; 96416; 96523; 99214; J1100; J2469; J7040; J7050; J9190; Q5114

== ENCOUNTER → 2022-05-16 16:00 | Outpatient (BNVA) | payer BC, MEDICARE, SELFPAY | PROVIDERS: PCP Internal Medicine; Visit Provider Urology | DX: N30.80 Other cystitis without hematuria (principal); N20.0 Calculus of kidney; R33.9 Retention of urine, unspecified | CPT/HCPCS: 51741; 99212 ==

== ENCOUNTER 2022-06-01 11:00 | Oncology outpatient (recurring) (ONCR) | payer OTHER, MEDICARE, SELFPAY ==
[2022-05-30 09:36] LABS: Basophils # 0.1 10^3/uL (0.0-0.1); Eosinophils # 0.2 10^3/uL (0.0-0.8); Eosinophils % 3.5 %; Hematocrit 44.2 % (42.0-52.0); Hemoglobin 14.7 g/dL (11.7-16.6); Lymphocytes # 1.1 10^3/uL (0.8-4.8); Lymphocytes % 18.5 %; Mean Corpuscular HGB Conc 33.3 g/dL (30.0-36.0); Mean Corpuscular Hemoglobin 30.2 pg (28.0-34.0); Mean Corpuscular Volume 90.8 fl (80-94); Mean Platelet Volume 9.8 fL (7.4-10.4); Monocytes # 0.6 10^3/uL (0.2-0.9); Monocytes % 9.6 %; Neutrophils # 3.82 10^3/uL (1.8-7.7); Neutrophils % 66.9 %; Nucleated Red Blood Cells % 0 %; Platelet Count 179 10^3/cmm (130-400); Red Blood Count 4.87 10^6/uL (4.1-5.3); Red Cell Distribution Width 14.7 % (12.1-15.1); White Blood Count 5.7 10^3/uL (4.0-10.0)
[2022-05-30 09:48] LABS: Alanine Aminotransferase 27 U/L (0-41); Alkaline Phosphatase 108 U/L (40-130); Anion Gap 12.9 (5-19); Aspartate Amino Transferase 24 U/L (0-40); Blood Urea Nitrogen 7 mg/dL (6-20); Calcium 8.6 mg/dL (8.5-10.5); Carbon Dioxide 29 mmol/L (22-29); Chloride 100 mmol/L (98-107); Globulin 2.3 g/dL (1.3-4.6); Glomerular Filtration Rate 140.4 mL/min (90-130); Glucose 270 mg/dL (65-115); Osmolality Calculated 294 mOsm/kg (285-295); Potassium 3.9 mmol/L (3.5-5.1); Sodium 138 mmol/L (136-145); Total Bilirubin 0.4 mg/dL (0.15-1.2); Total Protein 6.3 g/dL (6.6-8.7)
[2022-05-30] MEDS: loratadine 10 mg Tablet PO (11:29)
[2022-05-30] MEDS: acetaminophen 325 mg Tablet 650 MG PO (11:29)
[2022-05-30] MEDS: sodium chloride 0.9% 250 ML 75 ML IV (11:32)
[2022-05-30] MEDS: palonosetron 0.25 mg/5 mL SDV IVP (11:33)
[2022-05-30] MEDS: fluorouraciL 4,650 MG, elastomeric pump 1 PUMP in sodium chloride 0.9% (100 ml) 0 ML IV (13:05)
[2022-05-30 13:12] VITALS: BP 152/90; PULSE 50; RESP 16; TEMP 35.7; O2SAT 97
[2022-06-01 10:49] VITALS: BP 131/77; PULSE 60; RESP 16; TEMP 36.3; O2SAT 97
[2022-06-01] MEDS: sodium chloride 0.9% 1,000 ML 999 ML IV (11:18)
== END 2022-06-03 23:59 | disposition home or self-care (01) ==
PROVIDERS: PCP Internal Medicine; Visit Provider Internal Medicine Medical Oncology
DX: Z53.9 Procedure and treatment not carried out, unspecified reason; C15.5 Malignant neoplasm of lower third of esophagus; C77.8 Secondary and unspecified malignant neoplasm of lymph nodes of multiple regions; Z79.899 Other long term (current) drug therapy; Z95.828 Presence of other vascular implants and grafts
CPT/HCPCS: 80053; 81003; 85025; 96365; 96367; 96375; 96413; 96416; 96523; J1100; J2469; J7030; J7050; J9190; Q5114

== ENCOUNTER 2022-06-22 09:30 | Oncology outpatient (recurring) (ONCR) | payer OTHER, MEDICARE, SELFPAY ==
[2022-06-20 08:39] VITALS: BP 129/81; PULSE 59; RESP 16; TEMP 35.8; O2SAT 98
[2022-06-20 08:56] LABS: Basophils % 0.7 %; Eosinophils # 0.2 10^3/uL (0.0-0.8); Eosinophils % 3.7 %; Hematocrit 44.5 % (42.0-52.0); Hemoglobin 15.1 g/dL (11.7-16.6); Lymphocytes % 23.2 %; Mean Corpuscular HGB Conc 33.9 g/dL (30.0-36.0); Mean Corpuscular Hemoglobin 30.8 pg (28.0-34.0); Mean Corpuscular Volume 90.6 fl (80-94); Mean Platelet Volume 10.2 fL (7.4-10.4); Monocytes # 0.6 10^3/uL (0.2-0.9); Monocytes % 14.9 %; Neutrophils # 2.34 10^3/uL (1.8-7.7); Neutrophils % 57.3 %; Nucleated Red Blood Cells % 0 %; Platelet Count 203 10^3/cmm (130-400); Red Blood Count 4.91 10^6/uL (4.1-5.3); Red Cell Distribution Width 14.6 % (12.1-15.1); White Blood Count 4.1 10^3/uL (4.0-10.0)
[2022-06-20 09:21] LABS: Alanine Aminotransferase 26 U/L (0-41); Alkaline Phosphatase 128 U/L (40-130); Anion Gap 15.1 (5-19); Aspartate Amino Transferase 21 U/L (0-40); Blood Urea Nitrogen 5 mg/dL (6-20); Calcium 9.2 mg/dL (8.5-10.5); Carbon Dioxide 30 mmol/L (22-29); Chloride 100 mmol/L (98-107); Globulin 2.4 g/dL (1.3-4.6); Glomerular Filtration Rate 173.3 mL/min (90-130); Glucose 150 mg/dL (65-115); Osmolality Calculated 292 mOsm/kg (285-295); Potassium 4.1 mmol/L (3.5-5.1); Sodium 141 mmol/L (136-145); Total Bilirubin 0.4 mg/dL (0.15-1.2); Total Protein 6.4 g/dL (6.6-8.7)
[2022-06-20] MEDS: acetaminophen 325 mg Tablet 650 MG PO (09:46)
[2022-06-20] MEDS: loratadine 10 mg Tablet PO (09:47)
[2022-06-20] MEDS: sodium chloride 0.9% 250 ML 75 ML IV (09:47)
[2022-06-20] MEDS: palonosetron 0.25 mg/5 mL SDV IVP (09:50)
[2022-06-20] MEDS: fluorouraciL 4,650 MG, elastomeric pump 1 PUMP in sodium chloride 0.9% (100 ml) 0 ML IV (11:01)
[2022-06-20 11:04] VITALS: BP 127/75; PULSE 75; RESP 16; TEMP 36.1; O2SAT 96
[2022-06-22] MEDS: sodium chloride 0.9% 1,000 ML 999 ML IV (09:50)
[2022-06-22 09:55] VITALS: BP 148/82; PULSE 52; RESP 16; TEMP 36.4; O2SAT 97
[2022-06-22 11:19] VITALS: BP 148/85; PULSE 53; TEMP -8.8; TEMP 16; O2SAT 97
== END 2022-07-04 23:59 | disposition home or self-care (01) ==
PROVIDERS: PCP Internal Medicine; Visit Provider Internal Medicine Medical Oncology
DX: Z45.2 Encounter for adjustment and management of vascular access device (principal); C15.5 Malignant neoplasm of lower third of esophagus; C77.1 Secondary and unspecified malignant neoplasm of intrathoracic lymph nodes
CPT/HCPCS: 80053; 85025; 96365; 96367; 96375; 96413; 96416; 96523; J1100; J2469; J7030; J7050; J9190; Q5114

== ENCOUNTER 2022-07-01 06:00 | Outpatient (RCR) | payer OTHER, MEDICARE, SELFPAY | END 2022-07-04 23:59 | disposition home or self-care (01) | LOC: TPT 06:00 | PROVIDERS: PCP Internal Medicine; Visit Provider Internal Medicine Medical Oncology | DX: R53.81 Other malaise (principal); C15.5 Malignant neoplasm of lower third of esophagus | CPT/HCPCS: 97163 ==

== ENCOUNTER 2022-07-05 06:00 | Outpatient (RCR) | payer OTHER, MEDICARE, SELFPAY | END 2022-08-03 23:59 | disposition home or self-care (01) | LOC: TPT 06:00 | PROVIDERS: PCP Internal Medicine; Visit Provider Internal Medicine Medical Oncology | DX: R53.81 Other malaise (principal); C15.5 Malignant neoplasm of lower third of esophagus | CPT/HCPCS: 97110 ==

== ENCOUNTER 2022-08-03 09:00 | Oncology outpatient (recurring) (ONCR) | payer OTHER, MEDICARE, SELFPAY ==
--- NOTE | 2022-07-11 08:51 | PC.NURSE ---
Pt stated he has been taking antibiotics for diverticulitis. Pt has OV with Dr. Som levy a.m. to discuss with.
[2022-07-11 08:55] LABS: Basophils % 0.8 %; Eosinophils # 0.3 10^3/uL (0.0-0.8); Hematocrit 45.6 % (42.0-52.0); Hemoglobin 14.9 g/dL (11.7-16.6); Lymphocytes # 1.4 10^3/uL (0.8-4.8); Lymphocytes % 27.3 %; Mean Corpuscular HGB Conc 32.7 g/dL (30.0-36.0); Mean Corpuscular Hemoglobin 29.8 pg (28.0-34.0); Mean Corpuscular Volume 91.2 fl (80-94); Mean Platelet Volume 9.8 fL (7.4-10.4); Monocytes # 0.7 10^3/uL (0.2-0.9); Monocytes % 14.1 %; Neutrophils # 2.62 10^3/uL (1.8-7.7); Neutrophils % 52.6 %; Nucleated Red Blood Cells % 0 %; Platelet Count 213 10^3/cmm (130-400); Red Cell Distribution Width 14.9 % (12.1-15.1)
[2022-07-11 09:36] LABS: Alanine Aminotransferase 25 U/L (0-41); Albumin Level 3.8 g/dL (3.5-5.2); Alkaline Phosphatase 116 U/L (40-130); Anion Gap 10.8 (5-19); Aspartate Amino Transferase 22 U/L (0-40); Blood Urea Nitrogen 10 mg/dL (6-20); Calcium 9.1 mg/dL (8.5-10.5); Carbon Dioxide 29 mmol/L (22-29); Chloride 97 mmol/L (98-107); Globulin 2.6 g/dL (1.3-4.6); Glomerular Filtration Rate 173.3 mL/min (90-130); Glucose 155 mg/dL (65-115); Osmolality Calculated 278 mOsm/kg (285-295); Potassium 3.8 mmol/L (3.5-5.1); Sodium 133 mmol/L (136-145); Total Bilirubin 0.3 mg/dL (0.15-1.2); Total Protein 6.4 g/dL (6.6-8.7)
[2022-07-11] MEDS: sodium chloride 0.9% 250 ML 75 ML IV (10:29)
[2022-07-11] MEDS: palonosetron 0.25 mg/5 mL SDV IVP (10:30)
[2022-07-11] MEDS: acetaminophen 325 mg Tablet 650 MG PO (10:30)
[2022-07-11] MEDS: loratadine 10 mg Tablet PO (10:30)
[2022-07-11] MEDS: fluorouraciL 4,650 MG, elastomeric pump 1 PUMP in sodium chloride 0.9% (100 ml) 0 ML IV (12:06)
[2022-07-11 12:11] VITALS: BP 130/86; PULSE 63; RESP 16; TEMP 35.9; O2SAT 97
[2022-08-01 08:41] VITALS: BP 152/84; PULSE 58; RESP 16; TEMP 36.1; O2SAT 96
[2022-08-01 08:57] LABS: Basophils % 0.7 %; Eosinophils # 0.2 10^3/uL (0.0-0.8); Eosinophils % 4.3 %; Hematocrit 43.5 % (42.0-52.0); Hemoglobin 14.8 g/dL (11.7-16.6); Lymphocytes # 1.2 10^3/uL (0.8-4.8); Lymphocytes % 22.4 %; Mean Corpuscular Hemoglobin 30.3 pg (28.0-34.0); Mean Corpuscular Volume 89.1 fl (80-94); Mean Platelet Volume 9.8 fL (7.4-10.4); Monocytes # 0.7 10^3/uL (0.2-0.9); Monocytes % 13.1 %; Neutrophils # 3.17 10^3/uL (1.8-7.7); Neutrophils % 59.1 %; Nucleated Red Blood Cells % 0 %; Platelet Count 194 10^3/cmm (130-400); Red Blood Count 4.88 10^6/uL (4.1-5.3); Red Cell Distribution Width 14.9 % (12.1-15.1); White Blood Count 5.4 10^3/uL (4.0-10.0)
[2022-08-01 09:16] LABS: Alanine Aminotransferase 28 U/L (0-41); Albumin Level 3.9 g/dL (3.5-5.2); Alkaline Phosphatase 121 U/L (40-130); Anion Gap 13.7 (5-19); Aspartate Amino Transferase 23 U/L (0-40); Blood Urea Nitrogen 8 mg/dL (6-20); Calcium 8.9 mg/dL (8.5-10.5); Carbon Dioxide 27 mmol/L (22-29); Chloride 100 mmol/L (98-107); Globulin 2.2 g/dL (1.3-4.6); Glomerular Filtration Rate 173.3 mL/min (90-130); Glucose 168 mg/dL (65-115); Osmolality Calculated 286 mOsm/kg (285-295); Potassium 3.7 mmol/L (3.5-5.1); Sodium 137 mmol/L (136-145); Total Bilirubin 0.4 mg/dL (0.15-1.2); Total Protein 6.1 g/dL (6.6-8.7)
[2022-08-01] MEDS: sodium chloride 0.9% 250 ML 75 ML IV (09:32)
[2022-08-01] MEDS: loratadine 10 mg Tablet PO (09:33)
[2022-08-01] MEDS: acetaminophen 325 mg Tablet 650 MG PO (09:33)
[2022-08-01] MEDS: fluorouraciL 4,650 MG, elastomeric pump 1 PUMP in sodium chloride 0.9% (100 ml) 0 ML IV (10:55)
[2022-08-01 11:00] VITALS: BP 140/88; PULSE 53; RESP 16; TEMP 36.3; O2SAT 96
[2022-08-03 09:29] VITALS: BP 155/82; PULSE 59; RESP 16; TEMP 35.7; O2SAT 98
[2022-08-03] MEDS: sodium chloride 0.9% 1,000 ML 999 ML IV (09:34)
== END 2022-08-03 23:59 | disposition home or self-care (01) ==
PROVIDERS: PCP Internal Medicine; Visit Provider Internal Medicine Medical Oncology
DX: Z45.2 Encounter for adjustment and management of vascular access device (principal); C15.5 Malignant neoplasm of lower third of esophagus
CPT/HCPCS: 36591; 80053; 85025; 96365; 96366; 96367; 96375; 96413; 96416; 96523; J1100; J2469; J7030; J7050; J9190; Q5114

== ENCOUNTER 2022-08-04 06:00 | Outpatient (RCR) | payer BC, MEDICARE, SELFPAY | END 2022-09-03 23:59 | disposition home or self-care (01) | LOC: TPT 06:00 | PROVIDERS: PCP Internal Medicine; Visit Provider Internal Medicine Medical Oncology | DX: R53.81 Other malaise (principal); C15.5 Malignant neoplasm of lower third of esophagus | CPT/HCPCS: 97110 ==

== ENCOUNTER 2022-09-01 09:43 | Oncology outpatient (recurring) (ONCR) | payer BC, MEDICARE, SELFPAY ==
[2022-08-30 08:18] VITALS: BP 149/82; PULSE 51; RESP 16; TEMP 35.6; O2SAT 96
[2022-08-30 08:31] LABS: Basophils # 0.1 10^3/uL (0.0-0.1); Basophils % 0.8 %; Eosinophils # 0.3 10^3/uL (0.0-0.8); Eosinophils % 4.7 %; Hematocrit 44.3 % (42.0-52.0); Hemoglobin 14.8 g/dL (11.7-16.6); Lymphocytes # 1.3 10^3/uL (0.8-4.8); Lymphocytes % 20.5 %; Mean Corpuscular HGB Conc 33.4 g/dL (30.0-36.0); Mean Corpuscular Hemoglobin 30.3 pg (28.0-34.0); Mean Corpuscular Volume 90.6 fl (80-94); Mean Platelet Volume 10.1 fL (7.4-10.4); Monocytes # 0.7 10^3/uL (0.2-0.9); Monocytes % 10.5 %; Neutrophils # 3.88 10^3/uL (1.8-7.7); Neutrophils % 62.7 %; Nucleated Red Blood Cells % 0 %; Platelet Count 182 10^3/cmm (130-400); Red Blood Count 4.89 10^6/uL (4.1-5.3); Red Cell Distribution Width 14.5 % (12.1-15.1); White Blood Count 6.2 10^3/uL (4.0-10.0)
[2022-08-30 08:49] LABS: Alanine Aminotransferase 26 U/L (0-41); Albumin Level 3.8 g/dL (3.5-5.2); Alkaline Phosphatase 131 U/L (40-130); Anion Gap 12.9 (5-19); Aspartate Amino Transferase 24 U/L (0-40); Blood Urea Nitrogen 6 mg/dL (6-20); Calcium 8.3 mg/dL (8.5-10.5); Carbon Dioxide 27 mmol/L (22-29); Chloride 99 mmol/L (98-107); Globulin 2.3 g/dL (1.3-4.6); Glomerular Filtration Rate 173.3 mL/min (90-130); Glucose 388 mg/dL (65-115); Osmolality Calculated 294 mOsm/kg (285-295); Potassium 3.9 mmol/L (3.5-5.1); Sodium 135 mmol/L (136-145); Total Bilirubin 0.3 mg/dL (0.15-1.2); Total Protein 6.1 g/dL (6.6-8.7)
[2022-08-30] MEDS: acetaminophen 325 mg Tablet 650 MG PO (10:16)
[2022-08-30] MEDS: sodium chloride 0.9% 250 ML 75 ML IV (10:16)
[2022-08-30] MEDS: loratadine 10 mg Tablet PO (10:16)
[2022-08-30] MEDS: palonosetron 0.25 mg/5 mL SDV IVP (10:16)
[2022-08-30] MEDS: fluorouraciL 4,650 MG, elastomeric pump 1 PUMP in sodium chloride 0.9% (100 ml) 0 ML IV (11:34)
[2022-08-30 11:39] VITALS: BP 150/88; PULSE 77; RESP 16; TEMP 36.2; O2SAT 95
[2022-09-01] MEDS: ondansetron 2 mg/ML SDV 2 mL 8 MG IVP (10:33)
[2022-09-01] MEDS: sodium chloride 0.9% 1,000 ML 999 ML IV (10:34)
[2022-09-01] MEDS: dexamethasone 4 mg/mL INJ 12 MG IV (10:34)
[2022-09-01 11:35] VITALS: BP 122/84; PULSE 84; RESP 18; TEMP 36.4; O2SAT 98
== END 2022-09-03 23:59 | disposition home or self-care (01) ==
PROVIDERS: PCP Internal Medicine; Visit Provider Internal Medicine Medical Oncology
DX: C15.5 Malignant neoplasm of lower third of esophagus; Z79.52 Long term (current) use of systemic steroids; Z79.899 Other long term (current) drug therapy
CPT/HCPCS: 80053; 85025; 96365; 96367; 96375; 96413; 96416; 96523; J1100; J2405; J2469; J7030; J7050; J9190; Q5114

== ENCOUNTER 2022-09-19 08:09 | Oncology outpatient (recurring) (ONCR) | payer MEDICARE, BC, SELFPAY ==
[2022-09-19 08:43] LABS: Basophils # 0.1 10^3/uL (0.0-0.1); Basophils % 1.1 %; Eosinophils # 0.1 10^3/uL (0.0-0.8); Hematocrit 44.2 % (42.0-52.0); Hemoglobin 14.3 g/dL (11.7-16.6); Lymphocytes # 1.3 10^3/uL (0.8-4.8); Lymphocytes % 28.3 %; Mean Corpuscular HGB Conc 32.4 g/dL (30.0-36.0); Mean Corpuscular Hemoglobin 29.4 pg (28.0-34.0); Mean Corpuscular Volume 90.9 fl (80-94); Mean Platelet Volume 9.7 fL (7.4-10.4); Monocytes # 0.6 10^3/uL (0.2-0.9); Monocytes % 11.8 %; Neutrophils # 2.63 10^3/uL (1.8-7.7); Neutrophils % 55.4 %; Nucleated Red Blood Cells % 0 %; Platelet Count 201 10^3/cmm (130-400); Red Blood Count 4.86 10^6/uL (4.1-5.3); Red Cell Distribution Width 14.7 % (12.1-15.1); White Blood Count 4.7 10^3/uL (4.0-10.0)
[2022-09-19 09:02] LABS: Alanine Aminotransferase 26 U/L (0-41); Albumin Level 3.8 g/dL (3.5-5.2); Alkaline Phosphatase 113 U/L (40-130); Aspartate Amino Transferase 21 U/L (0-40); Blood Urea Nitrogen 8 mg/dL (6-20); Carbon Dioxide 27 mmol/L (22-29); Globulin 2.2 g/dL (1.3-4.6); Glomerular Filtration Rate 140.4 mL/min (90-130); Glucose 302 mg/dL (65-115); Total Bilirubin 0.3 mg/dL (0.15-1.2)
[2022-09-19 09:29] LABS: Osmolality Calculated 292 mOsm/kg (285-295); Sodium 136 mmol/L (136-145)
[2022-09-19 09:31] LABS: Anion Gap 11.1 (5-19); Chloride 102 mmol/L (98-107); Potassium 4.1 mmol/L (3.5-5.1)
[2022-09-19] MEDS: acetaminophen 325 mg Tablet 650 MG PO (09:48)
[2022-09-19] MEDS: loratadine 10 mg Tablet PO (09:48)
[2022-09-19] MEDS: sodium chloride 0.9% 250 ML 75 ML IV (09:48)
[2022-09-19 14:53] VITALS: BP 124/76; PULSE 78; RESP 16; TEMP 36.4; O2SAT 98
== END 2022-10-04 23:59 | disposition home or self-care (01) ==
PROVIDERS: PCP Internal Medicine; Visit Provider Internal Medicine Medical Oncology
DX: Z51.12 Encounter for antineoplastic immunotherapy; C15.5 Malignant neoplasm of lower third of esophagus; C77.1 Secondary and unspecified malignant neoplasm of intrathoracic lymph nodes; R53.0 Neoplastic (malignant) related fatigue; G62.0 Drug-induced polyneuropathy; T45.1X5A Adverse effect of antineoplastic and immunosuppressive drugs, initial encounter; Z79.52 Long term (current) use of systemic steroids; Z79.899 Other long term (current) drug therapy
CPT/HCPCS: 80053; 85025; 96413; 99214; J7050; Q5112

== ENCOUNTER 2022-10-31 08:00 | Oncology outpatient (recurring) (ONCR) | payer MEDICARE, BC, SELFPAY ==
[2022-10-10 08:32] LABS: Basophils # 0.1 10^3/uL (0.0-0.1); Basophils % 0.9 %; Eosinophils # 0.2 10^3/uL (0.0-0.8); Eosinophils % 3.4 %; Hematocrit 43.7 % (42.0-52.0); Hemoglobin 14.1 g/dL (11.7-16.6); Lymphocytes # 1.4 10^3/uL (0.8-4.8); Lymphocytes % 21.2 %; Mean Corpuscular HGB Conc 32.3 g/dL (30.0-36.0); Mean Corpuscular Hemoglobin 28.9 pg (28.0-34.0); Mean Corpuscular Volume 89.5 fl (80-94); Mean Platelet Volume 9.8 fL (7.4-10.4); Monocytes # 0.7 10^3/uL (0.2-0.9); Monocytes % 10.4 %; Neutrophils # 4.27 10^3/uL (1.8-7.7); Neutrophils % 63.7 %; Nucleated Red Blood Cells % 0 %; Platelet Count 188 10^3/cmm (130-400); Red Blood Count 4.88 10^6/uL (4.1-5.3); Red Cell Distribution Width 14.5 % (12.1-15.1); White Blood Count 6.7 10^3/uL (4.0-10.0)
[2022-10-10 08:52] LABS: Alanine Aminotransferase 29 U/L (0-41); Albumin Level 3.9 g/dL (3.5-5.2); Alkaline Phosphatase 112 U/L (40-130); Anion Gap 12.4 (5-19); Aspartate Amino Transferase 28 U/L (0-40); Blood Urea Nitrogen 6 mg/dL (6-20); Calcium 8.4 mg/dL (8.5-10.5); Carbon Dioxide 28 mmol/L (22-29); Chloride 101 mmol/L (98-107); Globulin 2.1 g/dL (1.3-4.6); Glomerular Filtration Rate 173.3 mL/min (90-130); Glucose 120 mg/dL (65-115); Osmolality Calculated 285 mOsm/kg (285-295); Potassium 3.4 mmol/L (3.5-5.1); Sodium 138 mmol/L (136-145); Total Bilirubin 0.6 mg/dL (0.15-1.2)
[2022-10-10] MEDS: sodium chloride 0.9% 250 ML 75 ML IV (09:44)
[2022-10-10] MEDS: acetaminophen 325 mg Tablet 650 MG PO (09:45)
[2022-10-10] MEDS: loratadine 10 mg Tablet PO ×2 (09:45)
[2022-10-10 11:04] VITALS: BP 129/84; PULSE 52; RESP 16; TEMP 36.2; O2SAT 97
[2022-10-31 08:45] LABS: Basophils # 0.1 10^3/uL (0.0-0.1); Basophils % 0.6 %; Eosinophils # 0.2 10^3/uL (0.0-0.8); Eosinophils % 1.9 %; Hematocrit 41.7 % (42.0-52.0); Hemoglobin 13.6 g/dL (11.7-16.6); Lymphocytes # 1.4 10^3/uL (0.8-4.8); Lymphocytes % 17.1 %; Mean Corpuscular HGB Conc 32.6 g/dL (30.0-36.0); Mean Corpuscular Volume 88.9 fl (80-94); Mean Platelet Volume 9.8 fL (7.4-10.4); Monocytes # 0.6 10^3/uL (0.2-0.9); Monocytes % 7.9 %; Neutrophils # 5.75 10^3/uL (1.8-7.7); Neutrophils % 72.4 %; Nucleated Red Blood Cells % 0 %; Platelet Count 197 10^3/cmm (130-400); Red Blood Count 4.69 10^6/uL (4.1-5.3); Red Cell Distribution Width 14.2 % (12.1-15.1)
[2022-10-31 09:03] LABS: Alanine Aminotransferase 27 U/L (0-41); Albumin Level 3.7 g/dL (3.5-5.2); Alkaline Phosphatase 103 U/L (40-130); Aspartate Amino Transferase 24 U/L (0-40); Blood Urea Nitrogen 7 mg/dL (6-20); Calcium 8.2 mg/dL (8.5-10.5); Carbon Dioxide 27 mmol/L (22-29); Chloride 100 mmol/L (98-107); Globulin 2.3 g/dL (1.3-4.6); Glomerular Filtration Rate 140.4 mL/min (90-130); Glucose 338 mg/dL (65-115); Osmolality Calculated 295 mOsm/kg (285-295); Sodium 137 mmol/L (136-145); Total Bilirubin 0.2 mg/dL (0.15-1.2)
[2022-10-31] MEDS: acetaminophen 325 mg Tablet 650 MG PO (11:03)
[2022-10-31] MEDS: sodium chloride 0.9% 250 ML 75 ML IV (11:03)
[2022-10-31] MEDS: loratadine 10 mg Tablet PO (11:03)
[2022-10-31 12:06] VITALS: BP 149/83; PULSE 56; RESP 16; TEMP 36.3
== END 2022-11-01 23:59 | disposition home or self-care (01) ==
PROVIDERS: PCP Internal Medicine; Visit Provider Internal Medicine Medical Oncology
DX: Z51.12 Encounter for antineoplastic immunotherapy (principal); C15.5 Malignant neoplasm of lower third of esophagus; Z92.3 Personal history of irradiation; J32.9 Chronic sinusitis, unspecified; G62.0 Drug-induced polyneuropathy; T45.1X5A Adverse effect of antineoplastic and immunosuppressive drugs, initial encounter; Z79.899 Other long term (current) drug therapy
CPT/HCPCS: 80053; 85025; 96413; 99214; J7050; Q5112

== ENCOUNTER 2022-12-01 08:12 | Oncology outpatient (recurring) (ONCR) | payer MEDICARE, BC, SELFPAY ==
[2022-12-01 08:44] LABS: Basophils # 0.1 10^3/uL (0.0-0.1); Basophils % 0.7 %; Eosinophils # 0.3 10^3/uL (0.0-0.8); Eosinophils % 4.5 %; Hematocrit 44.1 % (42.0-52.0); Hemoglobin 14.2 g/dL (11.7-16.6); Lymphocytes # 1.1 10^3/uL (0.8-4.8); Lymphocytes % 15.6 %; Mean Corpuscular HGB Conc 32.2 g/dL (30.0-36.0); Mean Corpuscular Hemoglobin 28.6 pg (28.0-34.0); Mean Corpuscular Volume 88.9 fl (80-94); Mean Platelet Volume 10.1 fL (7.4-10.4); Monocytes # 0.7 10^3/uL (0.2-0.9); Monocytes % 9.8 %; Neutrophils # 4.96 10^3/uL (1.8-7.7); Neutrophils % 69.3 %; Nucleated Red Blood Cells % 0 %; Platelet Count 203 10^3/cmm (130-400); Red Blood Count 4.96 10^6/uL (4.1-5.3); Red Cell Distribution Width 14.3 % (12.1-15.1); White Blood Count 7.2 10^3/uL (4.0-10.0)
[2022-12-01 09:02] LABS: Alanine Aminotransferase 27 U/L (0-41); Albumin Level 4.1 g/dL (3.5-5.2); Alkaline Phosphatase 110 U/L (40-130); Anion Gap 13.8 (5-19); Aspartate Amino Transferase 25 U/L (0-40); Blood Urea Nitrogen 13 mg/dL (6-20); Calcium 8.6 mg/dL (8.5-10.5); Carbon Dioxide 26 mmol/L (22-29); Chloride 105 mmol/L (98-107); Globulin 2.4 g/dL (1.3-4.6); Glomerular Filtration Rate 139.9 mL/min (90-130); Glucose 223 mg/dL (65-115); Osmolality Calculated 299 mOsm/kg (285-295); Potassium 3.8 mmol/L (3.5-5.1); Sodium 141 mmol/L (136-145); Total Bilirubin 0.3 mg/dL (0.15-1.2); Total Protein 6.5 g/dL (6.6-8.7)
[2022-12-01] MEDS: loratadine 10 mg Tablet PO (10:25)
[2022-12-01] MEDS: sodium chloride 0.9% 250 ML 75 ML IV (10:35)
[2022-12-01] MEDS: acetaminophen 325 mg Tablet 650 MG PO (10:35)
[2022-12-01 11:30] VITALS: BP 122/70; PULSE 78; RESP 16; TEMP 36.4; O2SAT 98
== END 2022-12-02 23:59 | disposition home or self-care (01) ==
PROVIDERS: PCP Internal Medicine; Visit Provider Internal Medicine Medical Oncology
DX: Z51.12 Encounter for antineoplastic immunotherapy (principal); C15.5 Malignant neoplasm of lower third of esophagus; Z79.899 Other long term (current) drug therapy; C77.0 Secondary and unspecified malignant neoplasm of lymph nodes of head, face and neck
CPT/HCPCS: 80053; 85025; 96413; 99214; J7050; Q5112

== ENCOUNTER 2022-12-26 08:06 | Oncology outpatient (recurring) (ONCR) | payer MEDICARE, BC, SELFPAY ==
[2022-12-26 08:13] VITALS: BP 121/78; PULSE 69; RESP 16; TEMP 35.8; O2SAT 97
[2022-12-26 08:28] LABS: Basophils # 0.1 10^3/uL (0.0-0.1); Basophils % 0.7 %; Eosinophils # 0.2 10^3/uL (0.0-0.8); Eosinophils % 2.9 %; Hematocrit 46.3 % (42.0-52.0); Lymphocytes # 1.6 10^3/uL (0.8-4.8); Lymphocytes % 23.3 %; Mean Corpuscular HGB Conc 32.4 g/dL (30.0-36.0); Mean Corpuscular Hemoglobin 28.5 pg (28.0-34.0); Monocytes # 0.7 10^3/uL (0.2-0.9); Monocytes % 10.3 %; Neutrophils % 62.5 %; Nucleated Red Blood Cells % 0 %; Platelet Count 202 10^3/cmm (130-400); Red Blood Count 5.26 10^6/uL (4.1-5.3); Red Cell Distribution Width 14.2 % (12.1-15.1); White Blood Count 6.9 10^3/uL (4.0-10.0)
[2022-12-26 08:48] LABS: Alanine Aminotransferase 26 U/L (0-41); Albumin Level 4.1 g/dL (3.5-5.2); Alkaline Phosphatase 104 U/L (40-130); Anion Gap 15.1 (5-19); Aspartate Amino Transferase 19 U/L (0-40); Blood Urea Nitrogen 9 mg/dL (6-20); Calcium 8.8 mg/dL (8.5-10.5); Carbon Dioxide 27 mmol/L (22-29); Chloride 100 mmol/L (98-107); Globulin 2.4 g/dL (1.3-4.6); Glomerular Filtration Rate 139.9 mL/min (90-130); Glucose 186 mg/dL (65-115); Osmolality Calculated 290 mOsm/kg (285-295); Potassium 4.1 mmol/L (3.5-5.1); Sodium 138 mmol/L (136-145); Total Bilirubin 0.5 mg/dL (0.15-1.2); Total Protein 6.5 g/dL (6.6-8.7)
[2022-12-26] MEDS: sodium chloride 0.9% (100 ml) 100 ML 75 ML (09:32)
[2022-12-26] MEDS: acetaminophen 325 mg Tablet 650 MG PO (09:32)
[2022-12-26] MEDS: loratadine 10 mg Tablet PO (09:33)
[2022-12-26 10:45] VITALS: BP 118/73; PULSE 88; RESP 16; TEMP 36.5; O2SAT 96
== END 2023-01-01 23:59 | disposition home or self-care (01) ==
PROVIDERS: PCP Internal Medicine; Visit Provider Internal Medicine Medical Oncology
DX: Z51.12 Encounter for antineoplastic immunotherapy (principal); C15.5 Malignant neoplasm of lower third of esophagus; C77.8 Secondary and unspecified malignant neoplasm of lymph nodes of multiple regions; R53.0 Neoplastic (malignant) related fatigue; G62.0 Drug-induced polyneuropathy; T45.1X5A Adverse effect of antineoplastic and immunosuppressive drugs, initial encounter; Z79.899 Other long term (current) drug therapy
CPT/HCPCS: 80053; 85025; 96413; 99214; J7050; Q5112

== ENCOUNTER 2023-01-16 07:58 | Oncology outpatient (recurring) (ONCR) | payer MEDICARE, BC, SELFPAY ==
[2023-01-16 08:11] VITALS: BP 138/80; PULSE 85; RESP 16; TEMP 35.8; O2SAT 96
[2023-01-16] MEDS: loratadine 10 mg Tablet PO (08:45)
[2023-01-16] MEDS: acetaminophen 325 mg Tablet 650 MG PO (08:45)
[2023-01-16] MEDS: sodium chloride 0.9% (100 ml) 100 ML 75 ML (09:15)
[2023-01-16 10:08] VITALS: BP 156/89; PULSE 48; RESP 16; TEMP 36.6; O2SAT 96
== END 2023-02-01 23:59 | disposition home or self-care (01) ==
LOC: ONCMED 08:00
PROVIDERS: PCP Internal Medicine; Visit Provider Internal Medicine Medical Oncology
DX: Z51.12 Encounter for antineoplastic immunotherapy (principal); C15.5 Malignant neoplasm of lower third of esophagus
CPT/HCPCS: 96413; J7050; Q5112

== ENCOUNTER 2023-02-13 08:55 | Oncology outpatient (recurring) (ONCR) | payer MEDICARE, BC, SELFPAY ==
[2023-02-13 08:00] VITALS: BP 142/89; PULSE 62; RESP 18; TEMP 36.3; O2SAT 97
[2023-02-13 08:19] LABS: Basophils % 0.5 %; Eosinophils # 0.1 10^3/uL (0.0-0.8); Eosinophils % 2.6 %; Hematocrit 42.4 % (42.0-52.0); Hemoglobin 13.8 g/dL (11.7-16.6); Lymphocytes # 1.2 10^3/uL (0.8-4.8); Lymphocytes % 22.3 %; Mean Corpuscular HGB Conc 32.5 g/dL (30.0-36.0); Mean Corpuscular Hemoglobin 28.5 pg (28.0-34.0); Mean Corpuscular Volume 87.4 fl (80-94); Monocytes # 0.7 10^3/uL (0.2-0.9); Monocytes % 12.4 %; Neutrophils # 3.39 10^3/uL (1.8-7.7); Nucleated Red Blood Cells % 0 %; Platelet Count 187 10^3/cmm (130-400); Red Blood Count 4.85 10^6/uL (4.1-5.3); Red Cell Distribution Width 14.2 % (12.1-15.1); White Blood Count 5.5 10^3/uL (4.0-10.0)
[2023-02-13 08:40] LABS: Alanine Aminotransferase 24 U/L (0-41); Alkaline Phosphatase 117 U/L (40-130); Anion Gap 10.6 (5-19); Aspartate Amino Transferase 21 U/L (0-40); Blood Urea Nitrogen 10 mg/dL (6-20); Calcium 8.7 mg/dL (8.5-10.5); Carbon Dioxide 28 mmol/L (22-29); Chloride 101 mmol/L (98-107); Globulin 2.2 g/dL (1.3-4.6); Glomerular Filtration Rate 139.9 mL/min (90-130); Glucose 181 mg/dL (65-115); Osmolality Calculated 286 mOsm/kg (285-295); Potassium 3.6 mmol/L (3.5-5.1); Sodium 136 mmol/L (136-145); Total Bilirubin 0.3 mg/dL (0.15-1.2); Total Protein 6.2 g/dL (6.6-8.7)
[2023-02-13] MEDS: acetaminophen 325 mg Tablet 650 MG PO (10:08)
[2023-02-13] MEDS: sodium chloride 0.9% 250 ML 75 ML IV (10:08)
[2023-02-13] MEDS: loratadine 10 mg Tablet PO (10:09)
[2023-02-13 11:26] VITALS: BP 127/82; PULSE 69; RESP 16; TEMP 36.2; O2SAT 97
== END 2023-03-03 23:59 | disposition home or self-care (01) ==
PROVIDERS: PCP Internal Medicine; Visit Provider Internal Medicine Medical Oncology
DX: Z51.12 Encounter for antineoplastic immunotherapy (principal); C15.5 Malignant neoplasm of lower third of esophagus; Z79.899 Other long term (current) drug therapy
CPT/HCPCS: 96413; 80053; 85025; 99214; J1642; J7050; Q5112

== ENCOUNTER 2023-03-27 08:00 | Oncology outpatient (recurring) (ONCR) | payer MEDICARE, BC, SELFPAY ==
[2023-03-06 08:18] LABS: Basophils % 0.7 %; Eosinophils # 0.2 10^3/uL (0.0-0.8); Eosinophils % 3.2 %; Hematocrit 43.4 % (42.0-52.0); Hemoglobin 14.5 g/dL (11.7-16.6); Lymphocytes # 1.3 10^3/uL (0.8-4.8); Lymphocytes % 22.6 %; Mean Corpuscular HGB Conc 33.4 g/dL (30.0-36.0); Mean Corpuscular Hemoglobin 28.9 pg (28.0-34.0); Mean Corpuscular Volume 86.5 fl (80-94); Mean Platelet Volume 9.5 fL (7.4-10.4); Monocytes # 0.6 10^3/uL (0.2-0.9); Monocytes % 11.4 %; Neutrophils # 3.48 10^3/uL (1.8-7.7); Neutrophils % 61.9 %; Nucleated Red Blood Cells % 0 %; Platelet Count 190 10^3/cmm (130-400); Red Blood Count 5.02 10^6/uL (4.1-5.3); Red Cell Distribution Width 14.5 % (12.1-15.1); White Blood Count 5.6 10^3/uL (4.0-10.0)
[2023-03-06 08:36] LABS: Alanine Aminotransferase 25 U/L (0-41); Alkaline Phosphatase 112 U/L (40-130); Anion Gap 13.8 (5-19); Aspartate Amino Transferase 20 U/L (0-40); Blood Urea Nitrogen 9 mg/dL (6-20); Calcium 8.9 mg/dL (8.5-10.5); Carbon Dioxide 29 mmol/L (22-29); Chloride 100 mmol/L (98-107); Globulin 2.3 g/dL (1.3-4.6); Glomerular Filtration Rate 139.9 mL/min (90-130); Glucose 122 mg/dL (65-115); Osmolality Calculated 288 mOsm/kg (285-295); Potassium 3.8 mmol/L (3.5-5.1); Sodium 139 mmol/L (136-145); Total Bilirubin 0.3 mg/dL (0.15-1.2); Total Protein 6.3 g/dL (6.6-8.7)
[2023-03-06 08:39] VITALS: BP 145/84; PULSE 67; RESP 18; TEMP 36.1; O2SAT 98
[2023-03-06] MEDS: acetaminophen 325 mg Tablet 650 MG PO (09:20)
[2023-03-06] MEDS: sodium chloride 0.9% 250 ML 75 ML IV (09:20)
[2023-03-06] MEDS: loratadine 10 mg Tablet PO (09:20)
[2023-03-06 09:40] VITALS: BP 131/81; PULSE 60; RESP 16; TEMP 36.6; O2SAT 97
[2023-03-06 10:55] VITALS: BP 129/86; PULSE 59; RESP 16; TEMP 36.2; O2SAT 97
[2023-03-27 07:24] VITALS: BP 151/88; PULSE 79; RESP 18; TEMP 36.3; O2SAT 98
[2023-03-27 07:32] VITALS: BMI 29.9
[2023-03-27 07:36] LABS: Basophils # 0.1 10^3/uL (0.0-0.1); Basophils % 0.8 %; Eosinophils # 0.2 10^3/uL (0.0-0.8); Eosinophils % 2.9 %; Hematocrit 42.6 % (42.0-52.0); Hemoglobin 14.5 g/dL (11.7-16.6); Lymphocytes # 1.5 10^3/uL (0.8-4.8); Lymphocytes % 23.3 %; Mean Corpuscular Hemoglobin 29.5 pg (28.0-34.0); Mean Corpuscular Volume 86.8 fl (80-94); Monocytes # 0.7 10^3/uL (0.2-0.9); Monocytes % 10.4 %; Neutrophils # 4.07 10^3/uL (1.8-7.7); Neutrophils % 62.4 %; Nucleated Red Blood Cells % 0 %; Platelet Count 220 10^3/cmm (130-400); Red Blood Count 4.91 10^6/uL (4.1-5.3); Red Cell Distribution Width 14.5 % (12.1-15.1); White Blood Count 6.5 10^3/uL (4.0-10.0)
[2023-03-27 09:16] LABS: Alanine Aminotransferase 27 U/L (0-41); Albumin Level 4.1 g/dL (3.5-5.2); Alkaline Phosphatase 142 U/L (40-130); Blood Urea Nitrogen 7 mg/dL (6-20); Calcium 9.1 mg/dL (8.5-10.5); Carbon Dioxide 25 mmol/L (22-29); Chloride 99 mmol/L (98-107); Glomerular Filtration Rate 139.9 mL/min (90-130); Glucose 316 mg/dL (65-115); Osmolality Calculated 290 mOsm/kg (285-295); Sodium 135 mmol/L (136-145); Total Bilirubin 0.2 mg/dL (0.15-1.2); Total Protein 6.1 g/dL (6.6-8.7)
[2023-03-27 09:17] LABS: Anion Gap 14.9 (5-19); Aspartate Amino Transferase 23 U/L (0-40); Potassium 3.9 mmol/L (3.5-5.1)
[2023-03-27] MEDS: acetaminophen 325 mg Tablet 650 MG PO (10:10)
[2023-03-27] MEDS: sodium chloride 0.9% 250 ML 75 ML IV (10:10)
[2023-03-27] MEDS: loratadine 10 mg Tablet PO (10:10)
[2023-03-27 10:55] VITALS: BP 123/73; PULSE 57; RESP 18; TEMP 36.1; O2SAT 97
== END 2023-03-27 11:59 | disposition home or self-care (01) ==
PROVIDERS: PCP Internal Medicine; Visit Provider Internal Medicine Medical Oncology
DX: C15.5 Malignant neoplasm of lower third of esophagus; Z51.11 Encounter for antineoplastic chemotherapy; R53.83 Other fatigue; G62.9 Polyneuropathy, unspecified
CPT/HCPCS: 80053; 85025; 96413; 99214; J1642; J7050; Q5112

== ENCOUNTER 2023-04-17 07:42 | Oncology outpatient (recurring) (ONCR) | payer MEDICARE, BC, SELFPAY ==
[2023-04-17 07:43] VITALS: BP 142/88; PULSE 62; RESP 18; TEMP 35.9; O2SAT 98
[2023-04-17 07:48] VITALS: BMI 29.8
[2023-04-17 07:54] LABS: Basophils % 0.7 %; Eosinophils # 0.2 10^3/uL (0.0-0.8); Eosinophils % 3.3 %; Hematocrit 42.9 % (42.0-52.0); Hemoglobin 14.6 g/dL (11.7-16.6); Lymphocytes # 1.6 10^3/uL (0.8-4.8); Lymphocytes % 25.8 %; Mean Corpuscular Volume 85.3 fl (80-94); Mean Platelet Volume 9.6 fL (7.4-10.4); Monocytes # 0.7 10^3/uL (0.2-0.9); Monocytes % 12.3 %; Neutrophils # 3.46 10^3/uL (1.8-7.7); Neutrophils % 57.7 %; Nucleated Red Blood Cells % 0 %; Platelet Count 205 10^3/cmm (130-400); Red Blood Count 5.03 10^6/uL (4.1-5.3); Red Cell Distribution Width 14.1 % (12.1-15.1)
[2023-04-17 08:20] LABS: Alanine Aminotransferase 24 U/L (0-41); Alkaline Phosphatase 114 U/L (40-130); Aspartate Amino Transferase 24 U/L (0-40); Blood Urea Nitrogen 11 mg/dL (6-20); Calcium 8.7 mg/dL (8.5-10.5); Carbon Dioxide 30 mmol/L (22-29); Chloride 100 mmol/L (98-107); Globulin 2.6 g/dL (1.3-4.6); Glomerular Filtration Rate 139.9 mL/min (90-130); Glucose 218 mg/dL (65-115); Osmolality Calculated 294 mOsm/kg (285-295); Sodium 139 mmol/L (136-145); Total Bilirubin 0.4 mg/dL (0.15-1.2); Total Protein 6.6 g/dL (6.6-8.7)
[2023-04-17 08:21] LABS: Anion Gap 13.2 (5-19); Potassium 4.2 mmol/L (3.5-5.1)
[2023-04-17] MEDS: sodium chloride 0.9% 250 ML 75 ML IV (10:32)
[2023-04-17] MEDS: acetaminophen 325 mg Tablet 650 MG PO (10:32)
[2023-04-17] MEDS: loratadine 10 mg Tablet PO (10:32)
[2023-04-17 11:30] VITALS: BP 138/74; PULSE 50; RESP 18; TEMP 35.7; O2SAT 97
[2023-04-18 11:40] LABS: Thyroid Stimulating Hormone 0.12 uIU/mL (0.27-4.20)
== END 2023-05-04 23:59 | disposition home or self-care (01) ==
PROVIDERS: Nurse Practitioner Family; PCP Internal Medicine; Visit Provider Internal Medicine Medical Oncology
DX: Z51.12 Encounter for antineoplastic immunotherapy (principal); C15.5 Malignant neoplasm of lower third of esophagus; Z79.899 Other long term (current) drug therapy; C77.0 Secondary and unspecified malignant neoplasm of lymph nodes of head, face and neck
CPT/HCPCS: 80053; 84443; 85025; 96413; 99214; J1642; J7050; Q5112

== ENCOUNTER 2023-05-29 10:02 | Observation (INO) | payer MEDICARE, BC, SELFPAY ==
[2023-05-29] VITALS (10 sets, daily range): BP systolic 116–177; BP diastolic 70–107; PULSE 60–71; RESP 15–16; TEMP 36.6–36.8; O2SAT 94–98; BMI 29.9
--- NOTE | 2023-05-29 10:32 | XRR_ITS ---
PROCEDURE INFORMATION: Exam: XR Chest Exam date and time: 05/29/2023 10:38 AM Age: 57 years old Clinical indication: Cough and dyspnea; Cough with hemorrhage; Prior surgery; Surgery date: 6+ months; Surgery type: Tumor resection on RT side neck; Patient HX: Esophageal cancer x 5yr; Additional info: Dyspnea/cough TECHNIQUE: Imaging protocol: Radiologic exam of the chest. Views: 1 view. COMPARISON: CT chest abdpel [id number] 09/13/2022 11:27 AM FINDINGS: Tubes, catheters and devices: There is a left chest wall MediPort catheter with its tip in the superior vena cava. Lungs: Unremarkable. No consolidation. Pleural spaces: Unremarkable. No pleural effusion. No pneumothorax. Heart/Mediastinum: Unremarkable. No cardiomegaly. Bones/joints: Unremarkable. XR/XR chest 1V portable [id number] IMPRESSION: No evidence of acute pulmonary process.
--- NOTE | 2023-05-29 11:29 | W.ED.GENADLT ---
HPI - General Adult General: Chief complaint: General Medical Stated complaint: coughing blood Time Seen by Provider: 05/29/23 10:31 Source: patient Mode of arrival: ambulatory History of Present Illness: 57-year-old male presents emergency room with complaint of hemoptysis. He had several episodes of hemoptysis this morning before arrival he states he coughed up several were described as handfuls of blood. He has not had any recurrence since then no fever sweats or chills. Patient has a history of esophageal CA with esophagectomy and gastric pull-through. Last year he had a similar episode of hemoptysis that turned out to be a vessel in the lungs. There is a concern because there is a right paratracheal node that was recently treated with radiation. There is a concern that that may be bleeding patient is not on any anticoagulants. Onset (ago): hour(s) Severity: moderate Relieving factors: none Exacerbating factors: none Associated symptoms: Deny chest pain, confusion, cough, diaphoresis, decreased appetite, dyspnea, fevers/chills, headache(s), malaise, nausea, rash, palpitations, seizures, short of breath, syncope, vomiting or weakness Treatments prior to arrival: none Review of Systems Const: Denies: malaise or diaphoresis ENMT: Denies: throat pain, ear or mastoid pain, nasal discharge or nasal congestion Card: Denies: chest pain, palpitations or syncope Resp: Reports: productive cough and hemoptysis; Denies: dyspnea GI: Denies: abdominal pain, nausea or vomiting : Denies: flank pain, dysuria, urinary frequency or urinary urgency Musc: Denies: neck pain or back pain Skin/Breast: Denies: rash Neuro: Denies: headache(s) or confusion PFS ED PFSH: Medical History Acquired hypothyroidism 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, treated with surgery, chemo and radiation Candidal UTI (urinary tract infection) Chronic sinusitis Cough variant asthma Cystitis cystica Degenerative arthritis Diabetes mellitus Type II, insulin requiring Essential (primary) hypertension Glaucoma Hemoptysis History of echocardiogram 04/2023 at with EF 58 % History of iron deficiency anemia Hypertriglyceridemia Hypogonadism Incomplete bladder emptying Malignant neoplasm of lower third of esophagus Stage X - T3(yp), N1(yp), M0, G1 YARED on CPAP Paralysis of right vocal cord Status-post repair Reactive depression Renal calculus, right 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 Josue History of total right hip arthroplasty (~07/2019) Hx of colonoscopy Port-A-Cath in place (02/24/20) S/P bronchoscopy (10/2020) Bronchoscopy with palliative resection of tracheal mass S/P cataract surgery S/P ureteral stent placement ESWL Family History Father Heart disease Mother Hypertension Recurrent urinary tract infection Dementia Other Chronic kidney disease (CKD) Diabetes Denies family history of CAD (coronary artery disease) Clotting disorder Hyperlipidemia Psychiatric illness Suicide Anesthesia complication Bleeding disorder Lung disease Cancer Stroke Social History Smoking and tobacco status: current every day smoker smokeless tobacco Smokeless tobacco user: chewing tobacco Alcohol intake: never Substance/Drug Use: never Adopted: No Caregiver/support person: No Lives independently: No Household members: spouse Housing: House Marital status: Current occupational status: disabled Physical Exam Const: GENERAL APPEARANCE: cooperative and comfortable ORIENTATION/CONSCIOUSNESS: Yes awake, Yes oriented to person, Yes oriented to place and Yes oriented to time HENMT: COMMON NORMALS: normocephalic, atraumatic and hearing grossly normal bilaterally HEAD & SCALP: normocephalic and atraumatic Resp: COMMON NORMALS: normal respiratory effort, No retractions, No use of accessory muscles and clear to auscultation bilaterally AUSCULTATION: clear to auscultation bilaterally Cardio: COMMON NORMALS: regular rate, regular rhythm and No murmurs present (Cardio) RATE: regular rate RHYTHM: regular rhythm GI: COMMON NORMALS: Soft to palpation and No hepatosplenomegaly present AUSCULTATION: Yes normoactive bowel sounds PALPATION: Yes Soft to palpation, No Tenderness to palpation present (GI), No Guarding due to palpation present (GI) and Yes No hepatosplenomegaly present Extremity: COMMON NORMALS: normal to inspection, capillary refill normal, no clubbing, cyanosis or edema, no calf tenderness and no pedal edema Neuro: SENSORIUM/ORIENTATION: Yes oriented to person, Yes oriented to place and Yes oriented to time Skin: COMMON NORMALS: no rashes or lesions noted GENERAL SKIN EXAM: no rashes or lesions noted Course Vital Signs: Vital signs: Vital Signs Temperature 97.7 F 05/31/23 11:40 Pulse Rate 72 05/31/23 11:40 Respiratory Rate 19 H 05/31/23 11:40 Blood Pressure 120/73 05/31/23 11:40 Pulse Oximetry 96 05/31/23 11:40 Oxygen Delivery Me thod Room Air 05/31/23 11:40 Oxygen Flow Rate 3 05/30/23 14:10 MDM - General Adult Medical Decision Making Labs and imaging reviewed with the patient. Occults oncology team agreed he is going to needed bronchoscopy. The ER is on divert and cannot get a bed for several days. Dr. Philippe is on-call discussed Dr. Vazquez he will do endoscopy on the patient tomorrow morning will admit for [place] acute patient n.p.o. and anticipate endoscopy tomorrow. Discussed with hospitalist orders written Lab Data 05/31/23 05:25 05/31/23 05:25 Radiology Impressions Chest X-Ray 05/29/23 10:32 IMPRESSION: No evidence of acute pulmonary process. Laboratory Results WBC 5.69 10^3/uL (3.29-11.43) 05/29/23 11:35 RBC 5.00 10^6/uL (3.85-5.65) 05/29/23 11:35 Hgb 14.30 g/dL (11.27-16.99) 05/29/23 11:35 Hct 43.7 % (37-53) 05/29/23 11:35 MCV 87.4 fl (82-101) 05/29/23 11:35 MCH 28.6 pg (27-33) 05/29/23 11:35 MCHC 32.7 g/dL (30-55) 05/29/23 11:35 RDW 14.1 % (12.1-15.1) 05/29/23 11:35 Plt Count 225 10^3/cmm (157-399) 05/29/23 11:35 MPV 9.9 fL (7.4-10.4) 05/29/23 11:35 Neut % (Auto) 61.1 % 05/29/23 11:35 Lymph % (Auto) 25.7 % 05/29/23 11:35 [place] % (Auto) 10.0 % 05/29/23 11:35 Eos % (Auto) 1.9 % 05/29/23 11:35 Baso % (Auto) 0.9 % 05/29/23 11:35 Neut # (Auto) 3.48 10^3/uL (1.8-7.7) 05/29/23 11:35 Lymph # (Auto) 1.5 10^3/uL (0.8-4.8) 05/29/23 11:35 [place] # (Auto) 0.6 10^3/uL (0.2-0.9) 05/29/23 11:35 Eos # (Auto) 0.1 10^3/uL (0.0-0.8) 05/29/23 11:35 Baso # (Auto) 0.1 10^3/uL (0.0-0.1) 05/29/23 11:35 Nucleated RBC % (auto) 0 % 05/29/23 11:35 Nucleated RBCs # 0.0 /100WBC 05/29/23 11:35 PT 13.90 SECONDS (12.1-14.9) 05/29/23 12:17 INR 1.04 (0.8-1.2) 05/29/23 12:17 APTT 32.1 SECONDS (23.9-36.7) 05/29/23 12:17 Sodium 142 mmol/L (136-145) 05/29/23 11:35 Potassium 4.2 mmol/L (3.5-5.1) 05/29/23 11:35 Chloride 107 mmol/L (98-107) 05/29/23 11:35 Carbon Dioxide 29 mmol/L (22-29) 05/29/23 11:35 Anion Gap 10.2 (5-19) 05/29/23 11:35 BUN 10 mg/dL (6-20) 05/29/23 11:35 Creatinine 0.6 mg/dL (0.7-1.2) L 05/29/23 11:35 GFR Calculation 139.9 mL/min (90-130) H 05/29/23 11:35 Glucose 150 mg/dL (65-115) H 05/29/23 11:35 Calculated Osmolality 296 mOsm/kg (285-295) H 05/29/23 11:35 Calcium 8.9 mg/dL (8.5-10.5) 05/29/23 11:35 Total Bilirubin 0.3 mg/dL (0.15-1.2) 05/29/23 11:35 AST 20 U/L (0-40) 05/29/23 11:35 ALT 23 U/L (0-41) 05/29/23 11:35 Alkaline Phosphatase 113 U/L (40-130) 05/29/23 11:35 Total Protein 6.6 g/dL (6.6-8.7) 05/29/23 11:35 Albumin 4.3 g/dL (3.5-5.2) 05/29/23 11:35 Globulin 2.3 g/dL (1.3-4.6) 05/29/23 11:35 All radiology interpretation(s) finalized by discharge Discharge Plan Discharge Patient Disposition: Admitted As Inpatient Admit Provider: Shannan Carey Clinical Impression: Hemoptysis, Secondary malignant neoplasm of trachea Condition: Stable Coding Level of Care Code ED Big Data Admin for Fatoug Zelda
--- NOTE | 2023-05-29 11:41 | CT_ITS ---
WS: [id number] CT chest w con* [id number] HISTORY: hemoptysis, status post esophagectomy and gastric pull-through. TECHNIQUE: Axial imaging performed through the thorax. Coronal and sagittal reformats are submitted. All CT scans at [facility] use at least one of these dose optimization techniques: automated exposure control; mA and/or kV adjustment per patient size (includes targeted exams where dose is mat ched to clinical indication); or iterative reconstruction. CONTRAST: Omnipaque 350; 100 mL IV. DLP: 691.43 mGy.cm COMPARISON: 09/13/2022. PET/CT 12/13/2022 Lungs and central airway: Increasing soft tissue in the high RIGHT paratracheal location beginning at the level of the innominate artery. Increased soft tissue causing mild mass effect upon the RIGHT tr achea and extends over a length of 3.7 cm. Transverse diameter 1.8 cm and and anterior posterior diam eter 3.1 cm. This is the same location as the previously described abnormal lymph node. The soft tiss ue has progressed although there is less enhancement. These findings have progressed since 09/13/2022 and need to be further evaluated for possible recurrence. There is a small lymph node containing calc ification inferior RIGHT paratracheal location which is stable. There are several mediastinal and hil ar lymph nodes which are unchanged. No lung nodules within the lungs. Pleura: Normal. No pleural effusion. Heart and pericardium: Normal size heart with no pericardial effusion. Mediastinum and dano: See above lung description. Esophagectomy with gastric pull-through. Vessels: Mild atherosclerosis aorta. Normal size aorta. Normal sized pulmonary artery. Chest wall and lower neck: LEFT subclavian Mediport. Upper abdomen: No adrenal abnormality. Mild hepatic steatosis. Diffuse pancreatic atrophy. Osseous structures: No destructive process. IMPRESSION: 1. Increased high RIGHT paratracheal soft tissue abutting the trachea and mildly displacing the trach ea. This soft tissue does not significantly enhance but is in a similar location to the abnormal lymp h node described on 11/15/2021. Possible neoplastic recurrence has to be considered. There is no longe r a fat plane between the trachea and the high RIGHT paratracheal soft tissue mass. Mass measures 1.8 x 3.1 cm and extends over a length of 3.7 cm. Suspicious for recurrent adenopathy. 2. Status post esophagectomy with gastric pull-through. 3. Mediastinal and hilar lymph nodes are otherwise stable. No metastatic nodules within the lungs.
[2023-05-29 11:53] LABS: Basophils # 0.1 10^3/uL (0.0-0.1); Basophils % 0.9 %; Eosinophils # 0.1 10^3/uL (0.0-0.8); Eosinophils % 1.9 %; Hematocrit 43.7 % (37-53); Lymphocytes # 1.5 10^3/uL (0.8-4.8); Lymphocytes % 25.7 %; Mean Corpuscular HGB Conc 32.7 g/dL (30-55); Mean Corpuscular Hemoglobin 28.6 pg (27-33); Mean Corpuscular Volume 87.4 fl (82-101); Mean Platelet Volume 9.9 fL (7.4-10.4); Monocytes # 0.6 10^3/uL (0.2-0.9); Neutrophils # 3.48 10^3/uL (1.8-7.7); Neutrophils % 61.1 %; Nucleated Red Blood Cells % 0 %; Platelet Count 225 10^3/cmm (157-399); Red Cell Distribution Width 14.1 % (12.1-15.1); White Blood Count 5.69 10^3/uL (3.29-11.43)
[2023-05-29 12:10] LABS: Alanine Aminotransferase 23 U/L (0-41); Albumin Level 4.3 g/dL (3.5-5.2); Alkaline Phosphatase 113 U/L (40-130); Anion Gap 10.2 (5-19); Aspartate Amino Transferase 20 U/L (0-40); Blood Urea Nitrogen 10 mg/dL (6-20); Calcium 8.9 mg/dL (8.5-10.5); Carbon Dioxide 29 mmol/L (22-29); Chloride 107 mmol/L (98-107); Globulin 2.3 g/dL (1.3-4.6); Glomerular Filtration Rate 139.9 mL/min (90-130); Glucose 150 mg/dL (65-115); Osmolality Calculated 296 mOsm/kg (285-295); Potassium 4.2 mmol/L (3.5-5.1); Sodium 142 mmol/L (136-145); Total Bilirubin 0.3 mg/dL (0.15-1.2); Total Protein 6.6 g/dL (6.6-8.7)
[2023-05-29] MEDS: iohexol 350 mg/mL 500 mL Btl (per mL) IV (12:38)
[2023-05-29 12:53] LABS: INR 1.04 (0.8-1.2)
[2023-05-29 12:54] LABS: Partial Thromboplastin Time 32.1 SECONDS (23.9-36.7)
--- NOTE | 2023-05-29 15:12 | P.HP_ITS ---
Providers/Chief Complaint Admitting Physician: Shannan Carey MD Primary Care Provider: Luis Luna MD Chief Complaint: coughing blood (cancer pt) History of Present Illness Ricky Flores is a 57 year old male with a history of adenocarcinoma of the distal esophagus, HER2 nu positive. He has had secondary involvement of the intrathoracic lymph nodes and trachea. He is on chronic Herceptin therapy. He underwent proton beam radiation therapy in February of this year. He is followed at [facility] as well as with Dr. Kearns locally. His last dose of Herceptin was 3 weeks ago with next dose due tomorrow 05/30. He had been doing well. He slept good last night. He does have sleep apnea and wears a CPAP with nasal pillow mask. It is not unusual for him to wake up in the morning with some congestion and needing to cough to clear that. This morning he did and in the process it felt like he had more phlegm than normal. When he coughed he coughed up reagan bright red blood clots. He had a second episode of coughing also with bright red blood clots. He knew he had to come in after seeing the second episode. He has had a similar finding in the past when a blood vessel in the pulmonary parenchyma was noted to be bleeding. Bleeding at that time stopped spontaneously. He has not had any other recent indications of hemoptysis. He has had coughing since then without recurrent bright red blood. Hemoglobin is stable. He underwent a CT of the chest with contrast demonstrating an increased high right paratracheal soft tissue mass abutting the trachea with mild tracheal displacement. It does not significantly enhance but in similar location to the abnormal lymph node described in 2021. There is loss of fat plane between the trachea and this paratracheal soft tissue mass which measures 1.8 x 3.1 cm extending over a length of 3.7 cm. ED provider, Dr. Hidalgo, discussed with oncology at [facility]. They had wanted patient to be transferred from ER to ER for endoscopy and further evaluation. However [facility] is currently full and not taking direct admits or ER transfers. Case was discussed with pulmonology here and Dr. Hare is willing to perform bronchoscopy. Dr. Hare in fact performed last bronchoscopy during previous episode of hemoptysis. At the present time patient is resting comfortably. He is being admitted to observation status for further monitoring and evaluation. Of note he had been informed that he was at increased risk for effects from proton beam radiation therapy for several months. New difficulty swallowing for solids or liquids. No recent change in voice. No wheezing or stridor. No recent fevers. He had a transient increased cough a few weeks ago after cutting a field of ragweed but he attributed that to allergies. No reports of any chest pain, pleuritic chest pain. 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 No complaints of any rhinorrhea or other respiratory symptoms. No increase in reflux and no nausea or vomiting. Review of Systems General: Reports: Other (ROS as per HPI or as otherwise noted here) Const: Denies: fever(s) or malaise ENMT: Denies: throat pain, nasal congestion or epistaxis Card: Denies: chest pain, palpitations or lightheadedness Resp: Denies: dyspnea or pain on inspiration Musc: Denies: extremity pain Skin/Breast: Denies: rash James/Lymph: Denies: easy bruising Medications/Allergies Home Medications Medication Instructions Recorded Confirmed Last Taken Type blood-glucose meter (Accu-Chek #1 ea 03/09/20 05/29/23 Unknown Rx Guide Me Glucose Meter) lancets (Accu-Chek Fastclix Lancet See Rx Instructions .Route 06/25/21 05/29/23 05/28/23 Rx Drum) .COMPLEX #102 ea dexamethasone sodium phosphate 10 10 mg IV .PREMED BEFORE CHEMO 10/13/21 05/29/23 Unknown History mg/mL injection solution timolol maleate 0.5 % eye drops 1 drp ophthalmic (eye) DAILY 10/13/21 05/29/23 05/28/23 History trastuzumab-dkst 420 mg 840 mg IV .EVERY 3 WEEKS 10/13/21 05/29/23 10/11/21 History intravenous solution (Ogivri) citalopram 20 mg tablet 20 mg PO QAM #90 tabs 11/03/21 05/29/23 05/28/23 Rx gabapentin 300 mg capsule 300 mg PO QAM #90 caps 11/03/21 05/29/23 05/28/23 Rx nebivolol 10 mg tablet (Bystolic) 10 mg PO QAM #90 tabs 11/03/21 05/29/23 05/28/23 Rx pantoprazole 40 mg tablet,delayed 40 mg PO BID #180 tabs 11/03/21 05/29/23 05/28/23 Rx release tamsulosin 0.4 mg capsule 0.4 mg PO BID #180 caps 11/03/21 05/29/23 05/28/23 Rx pen needle, diabetic 31 gauge x #100 ea 02/28/22 05/29/23 Unknown Rx 16 (Lite Touch Insulin Pen [place]) blood sugar diagnostic (Accu-Chek #100 ea 03/14/22 05/29/23 Unknown Rx Guide test strips) lorazepam 1 mg tablet 1 mg PO TID PRN nausea #90 tabs 07/11/22 05/29/23 Unknown Rx insulin lispro 200 unit/mL (3 mL) See Rx Instructions .Route 07/13/22 05/29/23 05/28/23 Rx subcutaneous pen (Humalog KwikPen .COMPLEX #18 mL U-200 Insulin) cholecalciferol (vitamin D3) 1,250 50,000 unit PO Q7D 12/26/22 05/29/23 Unknown History mcg (50,000 unit) tablet oxycodone-acetaminophen 10 mg-325 1 tab PO Q6H PRN pain 30 days #90 01/16/23 05/29/23 Unknown Rx mg tablet tabs levothyroxine 150 mcg tablet 150 mcg PO DAILY #90 tabs 04/24/23 05/29/23 05/28/23 Rx glimepiride 4 mg tablet 4 mg PO BID 05/29/23 05/29/23 05/28/23 History insulin glargine 100 unit/mL (3 70 unit SUBCUT BEDTIME 05/29/23 05/29/23 05/28/23 History mL) subcutaneous pen (Lantus Solostar U-100 Insulin) palonosetron 0.25 mg/5 mL 0.25 mg IV DIRECTED PRN 05/29/23 05/29/23 Unknown History intravenous solution premedication before chemo prochlorperazine maleate 10 mg 10 mg PO Q6H PRN Nausea 05/29/23 05/29/23 Unknown History tablet Allergies Allergy/AdvReac Type Severity Reaction Status Date / Time morphine Allergy Severe ALGY-Anaphy Verified 04/17/23 09:44 laxis PFSH Acute PFSH: Medical History (Updated 05/29/23 @ 16:29 by Shannan Carey MD) Acquired hypothyroidism 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, treated with surgery, chemo and radiation Candidal UTI (urinary tract infection) Chronic sinusitis Cystitis cystica Degenerative arthritis Diabetes mellitus Type II, insulin requiring Essential (primary) hypertension Glaucoma History of echocardiogram 04/2023 at with EF 58 % History of iron deficiency anemia Hypertriglyceridemia Hypogonadism Incomplete bladder emptying YARED on CPAP 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 Josue History of total right hip arthroplasty (~07/2019) Hx of colonoscopy Port-A-Cath in place (02/24/20) S/P bronchoscopy (10/2020) Bronchoscopy with palliative resection of tracheal mass S/P cataract surgery S/P ureteral stent placement ESWL Family History Father Heart disease Mother Hypertension Recurrent urinary tract infection Dementia Other Chronic kidney disease (CKD) Diabetes Denies family history of CAD (coronary artery disease) Clotting disorder Hyperlipidemia Psychiatric illness Suicide Anesthesia complication Bleeding disorder Lung disease Cancer Stroke Social History (Updated 05/29/23 @ 16:51 by Shannan Carey MD) Smoking and tobacco status: current every day smoker smokeless tobacco Smokeless tobacco user: chewing tobacco Alcohol intake: never Substance/Drug Use: never Adopted: No Caregiver/support person: No Lives independently: No Household members: spouse Housing: House Marital status: Current occupational status: disabled Vitals/I&O/Wt Last Vital Signs Temp 97.9 F 05/29/23 10:21 Pulse 60 05/29/23 14:35 Resp 16 05/29/23 10:21 BP 161/89 05/29/23 14:35 Pulse Ox 96 05/29/23 14:35 O2 Del Method Room Air 05/29/23 14:35 Weight last 48 hrs Weight 108.862 kg Physical Exam Narrative: Patient is awake and alert, able to provide history. Oriented x3. Normocephalic. Extraocular movements are intact. Nasopharynx is clear with no blood noted. Oropharynx with moist mucous membranes. No bright red or dried blood noted. Neck is large but supple. Lungs are clear to auscultation bilaterally without any rales rhonchi or wheezes noted. Cardiovascular exam reveals a regular rate and rhythm without any murmurs. Abdomen is soft, nontender, with positive bowel sounds. Extremities no pitting edema. 2+ radial and pedal pulses. Speech clear, face symmetric, moves all extremities. Data 05/29/23 11:35 05/29/23 11:35 Other Labs: Radiology Impressions Chest X-Ray 05/29/23 10:32 IMPRESSION: No evidence of acute pulmonary process. CT chest with contrast 1. Increased high RIGHT paratracheal soft tissue abutting the trachea and mildly displacing the trachea. This soft tissue does not significantly enhance but is in a similar location to the abnormal lymph node described on 11/15/2021. Possible neoplastic recurrence has to be considered. There is no longer a fat plane between the trachea and the high RIGHT paratracheal soft tissue mass. Mass measures 1.8 x 3.1 cm and extends over a length of 3.7 cm. Suspicious for recurrent adenopathy. 2. Status post esophagectomy with gastric pull-through. 3. Mediastinal and hilar lymph nodes are otherwise stable. No metastatic nodules within the lungs. Laboratory Results WBC 5.69 10^3/uL (3.29-11.43) 05/29/23 11:35 RBC 5.00 10^6/uL (3.85-5.65) 05/29/23 11:35 Hgb 14.30 g/dL (11.27-16.99) 05/29/23 11:35 Hct 43.7 % (37-53) 05/29/23 11:35 MCV 87.4 fl (82-101) 05/29/23 11:35 MCH 28.6 pg (27-33) 05/29/23 11:35 MCHC 32.7 g/dL (30-55) 05/29/23 11:35 RDW 14.1 % (12.1-15.1) 05/29/23 11:35 Plt Count 225 10^3/cmm (157-399) 05/29/23 11:35 MPV 9.9 fL (7.4-10.4) 05/29/23 11:35 Neut % (Auto) 61.1 % 05/29/23 11:35 Lymph % (Auto) 25.7 % 05/29/23 11:35 [place] % (Auto) 10.0 % 05/29/23 11:35 Eos % (Auto) 1.9 % 05/29/23 11:35 Baso % (Auto) 0.9 % 05/29/23 11:35 Neut # (Auto) 3.48 10^3/uL (1.8-7.7) 05/29/23 11:35 Lymph # (Auto) 1.5 10^3/uL (0.8-4.8) 05/29/23 11:35 [place] # (Auto) 0.6 10^3/uL (0.2-0.9) 05/29/23 11:35 Eos # (Auto) 0.1 10^3/uL (0.0-0.8) 05/29/23 11:35 Baso # (Auto) 0.1 10^3/uL (0.0-0.1) 05/29/23 11:35 Nucleated RBC % (auto) 0 % 05/29/23 11:35 Nucleated RBCs # 0.0 /100WBC 05/29/23 11:35 PT 13.90 SECONDS (12.1-14.9) 05/29/23 12:17 INR 1.04 (0.8-1.2) 05/29/23 12:17 APTT 32.1 SECONDS (23.9-36.7) 05/29/23 12:17 Sodium 142 mmol/L (136-145) 05/29/23 11:35 Potassium 4.2 mmol/L (3.5-5.1) 05/29/23 11:35 Chloride 107 mmol/L (98-107) 05/29/23 11:35 Carbon Dioxide 29 mmol/L (22-29) 05/29/23 11:35 Anion Gap 10.2 (5-19) 05/29/23 11:35 BUN 10 mg/dL (6-20) 05/29/23 11:35 Creatinine 0.6 mg/dL (0.7-1.2) L 05/29/23 11:35 GFR Calculation 139.9 mL/min (90-130) H 05/29/23 11:35 Glucose 150 mg/dL (65-115) H 05/29/23 11:35 Calculated Osmolality 296 mOsm/kg (285-295) H 05/29/23 11:35 Calcium 8.9 mg/dL (8.5-10.5) 05/29/23 11:35 Total Bilirubin 0.3 mg/dL (0.15-1.2) 05/29/23 11:35 AST 20 U/L (0-40) 05/29/23 11:35 ALT 23 U/L (0-41) 05/29/23 11:35 Alkaline Phosphatase 113 U/L (40-130) 05/29/23 11:35 Total Protein 6.6 g/dL (6.6-8.7) 05/29/23 11:35 Albumin 4.3 g/dL (3.5-5.2) 05/29/23 11:35 Globulin 2.3 g/dL (1.3-4.6) 05/29/23 11:35 A&P Assessment and plan (1) Hemoptysis: Bright red clotted blood x2 episodes today in a patient with history of esophageal cancer and secondary lymphadenopathy as well as tracheal mass, proton beam radiation therapy within the last couple of months. Has had 1 prior similar episode at which time he was found to have a bleeding vessel in the pulmonary parenchyma. (2) Malignant neoplasm of lower third of esophagus: Adenocarcinoma stage IIIb/IV chronically on Herceptin. Has had previous radiation proton beam therapy as well as modified FOLFOX regimen. Follows at [facility] as well as with Dr. Kearns locally. Chronically on PPI. (3) Diabetes mellitus: Type II, insulin requiring, with hyperglycemia. On long and short acting insulin plus glimepiride. (4) Essential (primary) hypertension: Chronically on Bystolic which he has not had today resulting in suboptimally controlled pressures presently. (5) Acquired hypothyroidism: Chronically on levothyroxine with what looks to be historically slightly low TSH levels. (6) Glaucoma: Chronically on timolol. (7) Cystitis cystica: Chronic, with incomplete bladder emptying, chronically on Flomax. (8) YARED on CPAP: (9) Smokeless tobacco use: Plan Observation admission Pulmonary consultation with Dr. Hare Plan for bronchoscopy in the morning unless has recurrent episodes of bleeding Clear liquids currently then n.p.o. after midnight Serial H&H Further plans depending on findings [facility] patient's original 8:30 AM appointment has be en pushed back to 10 AM on 05/30/2023 in the event that he is able to make that appointment after bronchoscopy has been completed. Originally scheduled for next dose of Herceptin on 05/30. He will see Dr. Kearns before determination about next dosing. Continue Lantus at approximately half usual dose along with sliding scale insulin, holding glimepiride given planned n.p.o. after midnight status Continue home Bystolic, patient's will bring in On a lower dose of levothyroxine (had previously been on 175 mcg daily which was decreased to 150 mcg in April) Continue home atenolol dosing Continue home Flomax dosing Continue home PPI May use home CPAP device with nasal pillows Patient encouraged to avoid tobacco use VTE prophylaxis: Lovenox GI Prophylaxis: PPI Telemetry: ordered overnight secondary to hemoptysis [place]: not currently indicated Line(s): peripharal IVs Disposition plan: Home with outpatient follow up to Dr. Kearns potentially tomorrow at 10 AM; will also need follow-up to primary care provider, possibly pulmonology here and oncology at [facility] as recommended Code Status: Full Code Supportive care otherwise Findings, concerns and plans were discussed with patient and they were given an opportunity to ask questions Attestations Medical Necessity Statement*: Currently anticipate a stay less than two midnights esophagus presenting with 2 episodes of bright red clotted hemoptysis this morning. Vital signs are presently stable as his hemoglobin but at significant risk for ongoing bleeding given recent proton beam radiation therapy and prior hemoptysis episodes along with known involvement along the trachea. and Moderate Time for a total of 65 minutes, includes reviewing past or interval history, examining/interviewing patient, placing orders and documenting encounter Diagnoses Hemoptysis R04.2 Malignant neoplasm of lower third of esophagus C15.5 Diabetes mellitus E11.9 Essential (primary) hypertension I10 Acquired hypothyroidism E03.9 Glaucoma H40.9 Cystitis cystica N30.80 YARED on CPAP G47.33; Z99.89 Smokeless tobacco use Z72.0
--- NOTE | 2023-05-29 16:11 | P.CONIM_ITS ---
Providers/Reason For Consult Consulting Physician/Specialty*: Nico Hare MD FCCP/pulmonary Reason for Consult*: Hemoptysis Requesting Physician: Dr. 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 Quintana twice in 2020, comes to emergency room today morning after noticing 2 episodes of coughing out bright red blood clots. His H&H remained stable.ED provider, Dr. Hidalgo, discussed with oncology at [facility].? They had wanted patient to be transferred from ER to ER for endoscopy and further evaluation.? However [facility] is currently full and not taking direct admits or ER transfers.? He underwent a CT of the chest with contrast demonstrating an increased high right paratracheal soft tissue mass abutting the trachea with mild tracheal displacement.? It does not significantly enhance but in similar location to the abnormal lymph node described in November 2021.? There is loss of fat plane between the trachea and this paratracheal soft tissue mass which measures 1.8 x 3.1 cm extending over a length of 3.7 cm.? He has had secondary involvement of the intrathoracic lymph nodes and trachea.? He is on chronic Herceptin therapy.? He underwent proton beam radiation therapy in February 2023.? He is followed at [place] as well as with Dr. Kearns locally.?His last dose of Herceptin was 3 weeks ago with next dose due tomorrow 05/30.? He had been doing well until today morning when he developed hemoptysis. I was consulted for hemoptysis. First episode October 2020 - patient came to ER for hemoptysis-Dr. Vargas performed flexible bronchoscopy at that time showed exophytic mass possibly from infiltrating adenocarcinoma of the esophagus seen marginated from posterior tracheal membrane at the level of of about 3.5 to 4 cm below vocal cords with associated 85 to 90% occlusion of the lumen.? With a history of infiltrating adenocarcinoma of lower third of esophagus-he was transferred to [facility] for tumor debulking by interventional pulmonology.? As per patient and his -he has to undergo tumor debulking second time in January 2021 and since then he did not have any hemoptysis.? Also is receiving chemotherapy for his metastatic esophageal cancer at [facility] and they have been following with surveillance CT scans but never mentioned any recurrence of tracheal growth on imaging. Second episode October 2021-patient came to ER for hemoptysis from PCP office- admitted for observation;I have seen Mr. Ricky Flores at that time - and subsequent bronchoscopy did not reveal any active bleeding.Patient reported he did not have any further episodes of bleeding since then. Today he denied chest pains, pleuritic chest pain, difficulty swallowing for solids or liquids, change in voice, wheezing or stridor, fevers, transient increased cough a few weeks ago after cutting a field of ragweed but he attributed that to allergies.? Otherwise clinically stable. He is admitted for 24-hour observation Review of Systems General: Reports: 10 or more systems reviewed and unremarkable except in HPI and below Medications/Allergies Home Medications Medication Instructions Recorded Confirmed Last Taken Type blood-glucose meter (Accu-Chek #1 ea 03/09/20 05/29/23 Unknown Rx Guide Me Glucose Meter) lancets (Accu-Chek Fastclix Lancet See Rx Instructions .Route 06/25/21 05/29/23 05/28/23 Rx Drum) .COMPLEX #102 ea dexamethasone sodium phosphate 10 10 mg IV .PREMED BEFORE CHEMO 10/13/21 05/29/23 Unknown History mg/mL injection solution timolol maleate 0.5 % eye drops 1 drp ophthalmic (eye) DAILY 10/13/21 05/29/23 05/28/23 History trastuzumab-dkst 420 mg 840 mg IV .EVERY 3 WEEKS 10/13/21 05/29/23 10/11/21 History intravenous solution (Ogivri) citalopram 20 mg tablet 20 mg PO QAM #90 tabs 11/03/21 05/29/23 05/28/23 Rx gabapentin 300 mg capsule 300 mg PO QAM #90 caps 11/03/21 05/29/23 05/28/23 Rx nebivolol 10 mg tablet (Bystolic) 10 mg PO QAM #90 tabs 11/03/21 05/29/23 05/28/23 Rx pantoprazole 40 mg tablet,delayed 40 mg PO BID #180 tabs 11/03/21 05/29/23 05/28/23 Rx release tamsulosin 0.4 mg capsule 0.4 mg PO BID #180 caps 11/03/21 05/29/23 05/28/23 Rx pen needle, diabetic 31 gauge x #100 ea 02/28/22 05/29/23 Unknown Rx 16 (Lite Touch Insulin Pen [place]) blood sugar diagnostic (Accu-Chek #100 ea 03/14/22 05/29/23 Unknown Rx Guide test strips) lorazepam 1 mg tablet 1 mg PO TID PRN nausea #90 tabs 07/11/22 05/29/23 Unknown Rx insulin lispro 200 unit/mL (3 mL) See Rx Instructions .Route 07/13/22 05/29/23 05/28/23 Rx subcutaneous pen (Humalog KwikPen .COMPLEX #18 mL U-200 Insulin) cholecalciferol (vitamin D3) 1,250 50,000 unit PO Q7D 12/26/22 05/29/23 Unknown History mcg (50,000 unit) tablet oxycodone-acetaminophen 10 mg-325 1 tab PO Q6H PRN pain 30 days #90 01/16/23 05/29/23 Unknown Rx mg tablet tabs levothyroxine 150 mcg tablet 150 mcg PO DAILY #90 tabs 04/24/23 05/29/23 05/28/23 Rx glimepiride 4 mg tablet 4 mg PO BID 05/29/23 05/29/23 05/28/23 History insulin glargine 100 unit/mL (3 70 unit SUBCUT BEDTIME 05/29/23 05/29/23 05/28/23 History mL) subcutaneous pen (Lantus Solostar U-100 Insulin) palonosetron 0.25 mg/5 mL 0.25 mg IV DIRECTED PRN 05/29/23 05/29/23 Unknown History intravenous solution premedication before chemo prochlorperazine maleate 10 mg 10 mg PO Q6H PRN Nausea 05/29/23 05/29/23 Unknown History tablet Allergies Allergy/AdvReac Type Severity Reaction Status Date / Time morphine Allergy Severe ALGY-Anaphy Verified 08/14/23 09:44 laxis Current Medications Generic Name Dose Route Start Last Admin Trade Name Radha PRN Reason Stop Dose Admin Dextrose 100 mls @ 100 mls/hr 05/29/23 14:30 05/29/23 14:27 D10w IV 100 mls/hr .Q1H ROSAS Administration PFSH Acute PFSH: Medical History Acquired hypothyroidism 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, treated with surgery, chemo and radiation Candidal UTI (urinary tract infection) Chronic sinusitis Cystitis cystica Degenerative arthritis Diabetes mellitus Type II, insulin requiring Essential (primary) hypertension Glaucoma History of echocardiogram 04/2023 at with EF 58 % History of iron deficiency anemia Hypertriglyceridemia Hypogonadism Incomplete bladder emptying YARED on CPAP Paralysis of right vocal cord Status-post repair Reactive depression Renal calculus, right 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 Josue History of total right hip arthroplasty (~07/2019) Hx of colonoscopy Port-A-Cath in place (02/24/20) S/P bronchoscopy (10/2020) Bronchoscopy with palliative resection of tracheal mass S/P cataract surgery S/P ureteral stent placement ESWL Family History Father Heart disease Mother Hypertension Recurrent urinary tract infection Dementia Other Chronic kidney disease (CKD) Diabetes Denies family history of CAD (coronary artery disease) Clotting disorder Hyperlipidemia Psychiatric illness Suicide Anesthesia complication Bleeding disorder Lung disease Cancer Stroke Social History Smoking and tobacco status: current every day smoker smokeless tobacco Smokeless tobacco user: chewing tobacco Alcohol intake: never Substance/Drug Use: never Adopted: No Caregiver/support person: No Lives independently: No Household members: spouse Housing: House Marital status: Current occupational status: disabled Vitals/I&O/Wt Last Vital Signs Temp 97.9 F 05/29/23 10:21 Pulse 66 05/29/23 15:30 Resp 16 05/29/23 10:21 BP 165/101 05/29/23 16:08 Pulse Ox 98 05/29/23 16:08 O2 Del Method Room Air 05/29/23 16:08 Weight last 48 hrs Weight 240 lb Physical Exam Narrative: General: alert, NAD HEENT: conj clear, EOMI, PERRL, mmm, Neck: supple, no meningismus Heme: no cervical LAP Respiratory: Inspection: No visible deformity of the chest wall Palpation: Trachea is mildly deviated to the right, bilateral symmetric expansion Percussion: Bilateral tympanic percussion note both anterior and posteriorly Auscultation: Bilateral clear to auscultation both anterior and posteriorly, no crackles wheezing or rhonchi Cardiovascular: rrr, nl s1s2, no mrg Abdomen: soft, nt, nd, no r/g, bs+ Extremities: pulses +, no edema, no c/c : no CVA tenderness Skin: intact, no rash MSK: no back or neck pain Neurologic: grossly intact Data 05/29/23 18:07 05/29/23 11:35 Other Labs: Radiology Impressions Chest X-Ray 05/29/23 10:32 IMPRESSION: No evidence of acute pulmonary process. Laboratory Results WBC 5.69 10^3/uL (3.29-11.43) 05/29/23 11:35 RBC 5.00 10^6/uL (3.85-5.65) 05/29/23 11:35 Hgb 13.90 g/dL (11.27-16.99) 05/29/23 18:07 Hct 42.2 % (37-53) 05/29/23 18:07 MCV 87.4 fl (82-101) 05/29/23 11:35 MCH 28.6 pg (27-33) 05/29/23 11:35 MCHC 32.7 g/dL (30-55) 05/29/23 11:35 RDW 14.1 % (12.1-15.1) 05/29/23 11:35 Plt Count 225 10^3/cmm (157-399) 05/29/23 11:35 MPV 9.9 fL (7.4-10.4) 05/29/23 11:35 Neut % (Auto) 61.1 % 05/29/23 11:35 Lymph % (Auto) 25.7 % 05/29/23 11:35 [place] % (Auto) 10.0 % 05/29/23 11:35 Eos % (Auto) 1.9 % 05/29/23 11:35 Baso % (Auto) 0.9 % 05/29/23 11:35 Neut # (Auto) 3.48 10^3/uL (1.8-7.7) 05/29/23 11:35 Lymph # (Auto) 1.5 10^3/uL (0.8-4.8) 05/29/23 11:35 [place] # (Auto) 0.6 10^3/uL (0.2-0.9) 05/29/23 11:35 Eos # (Auto) 0.1 10^3/uL (0.0-0.8) 05/29/23 11:35 Baso # (Auto) 0.1 10^3/uL (0.0-0.1) 05/29/23 11:35 Nucleated RBC % (auto) 0 % 05/29/23 11:35 Nucleated RBCs # 0.0 /100WBC 05/29/23 11:35 PT 13.90 SECONDS (12.1-14.9) 05/29/23 12:17 INR 1.04 (0.8-1.2) 05/29/23 12:17 APTT 32.1 SECONDS (23.9-36.7) 05/29/23 12:17 Sodium 142 mmol/L (136-145) 05/29/23 11:35 Potassium 4.2 mmol/L (3.5-5.1) 05/29/23 11:35 Chloride 107 mmol/L (98-107) 05/29/23 11:35 Carbon Dioxide 29 mmol/L (22-29) 05/29/23 11:35 Anion Gap 10.2 (5-19) 05/29/23 11:35 BUN 10 mg/dL (6-20) 05/29/23 11:35 Creatinine 0.6 mg/dL (0.7-1.2) L 05/29/23 11:35 GFR Calculation 139.9 mL/min (90-130) H 05/29/23 11:35 Glucose 150 mg/dL (65-115) H 05/29/23 11:35 Calculated Osmolality 296 mOsm/kg (285-295) H 05/29/23 11:35 Calcium 8.9 mg/dL (8.5-10.5) 05/29/23 11:35 Total Bilirubin 0.3 mg/dL (0.15-1.2) 05/29/23 11:35 AST 20 U/L (0-40) 05/29/23 11:35 ALT 23 U/L (0-41) 05/29/23 11:35 Alkaline Phosphatase 113 U/L (40-130) 05/29/23 11:35 Total Protein 6.6 g/dL (6.6-8.7) 05/29/23 11:35 Albumin 4.3 g/dL (3.5-5.2) 05/29/23 11:35 Globulin 2.3 g/dL (1.3-4.6) 05/29/23 11:35 A&P Assessment and plan (1) Hemoptysis: First instance: October 2020 - patient came to ER for hemoptysis-Dr. Vargas performed flexible bronchoscopy at that time showed exophytic mass possibly from infiltrating adenocarcinoma of the esophagus seen marginated from posterior tracheal membrane at the level of of about 3.5 to 4 cm below vocal cords with associated 85 to 90% occlusion of the lumen.? With a history of infiltrating adenocarcinoma of lower third of esophagus-he was transferred to [facility] for tumor debulking by interventional pulmonology.? As per patient and his -he has to undergo tumor debulking second time in January 2021 and since then he did not have any hemoptysis.? Also is receiving chemotherapy for his metastatic esophageal cancer at [facility] and they have been following with surveillance CT scans but never mentioned any recurrence of tracheal growth on imaging. Second instance October 2021-patient came to ER for hemoptysis from PCP office- admitted for observation;I have seen Mr. Ricky Flores at that time - and subsequent bronchoscopy did not reveal any active bleeding.Patient reported he did not have any further episodes of bleeding since then. Third instance 05/29/2023: 2 episodes of coughing up bright red clots. H&H is stable. T of the chest with contrast demonstrating an increased high right paratracheal soft tissue mass abutting the trachea with mild tracheal displacement.? It does not significantly enhance but in similar location to the abnormal lymph node described in November 2021.? There is loss of fat plane between the trachea and this paratracheal soft tissue mass which measures 1.8 x 3.1 cm extending over a length of 3.7 cm.? He has had secondary involvement of the intrathoracic lymph nodes and trachea.? He is on chronic Herceptin therapy.? He underwent proton beam radiation therapy in February 2023.? He is followed at [place] as well as with Dr. Kearns locally.?His last dose of Herceptin was 3 weeks ago with next dose due tomorrow 05/30.? He had been doing well until today morning when he developed hemoptysis. I we will schedule for bronchoscopic evaluation tomorrow morning Otherwise clinically stable. He is admitted for 24-hour observation (2) Cough variant asthma: Patient reported having significant bouts of cough while mowing outdoors- especially exposure to ragweed; He reported occasional wheezing but did not report any significant shortness of breath on exertion Suspect cough variant asthma Will give prescription for albuterol as needed; informed that if he has to use albuterol more than 3 times a week; he will need ICS/LABA inhaler (3) Malignant neoplasm of lower third of esophagus: Follows up with oncology at [place] and Dr. Kearns here in locally (4) Secondary and unspecified malignant neoplasm of intrathoracic lymph nodes: Follows up with [facility] and and Dr. Kearns here in locally Coding Level of Care Code Acute Code for Chg Fwd Diagnoses Hemoptysis R04.2 Cough variant asthma J45.991 Malignant neoplasm of lower third of esophagus C15.5 Secondary and unspecified malignant neoplasm of intrathoracic lymph nodes C77.1 Time Spent (min) 51
[2023-05-29] MEDS: tamsulosin 0.4 mg Capsule PO (17:34)
[2023-05-29] MEDS: sodium chloride 0.9% 1,000 ML 100 ML IV (17:34)
[2023-05-29] MEDS: metoprolol tartrate 1 mg/1 mL SDV 5 mL 5 MG IVP (17:34)
[2023-05-29] MEDS: pantoprazole DR 40 mg Tablet PO (17:34)
--- NOTE | 2023-05-29 18:15 | PC.NURSE ---
Dr. Hare requests Broncho with observation in morning. Notified [employer] Senior Executive, Marisol.
[2023-05-29 18:19] LABS: Hematocrit 42.2 % (37-53)
[2023-05-29] MEDS: insulin glargine 100 units/1 mL 40 UNIT SUBCUT (20:43)
[2023-05-29] MEDS: insulin lispro 100 unit/1 mL SUBCUT (20:44)
[2023-05-29] MEDS: NON-FORMULARY MEDICATION (Nebivolol [Bystolic] 10 mg tablet) 10 EACH PO (20:55)
[2023-05-29] MEDS: oxyCODONE-APAP 10-325 mg Tablet 1 TAB PO (23:01)
[2023-05-30] VITALS (21 sets, daily range): BP systolic 103–174; BP diastolic 58–100; PULSE 51–81; RESP 16–20; TEMP 36.1–36.9; O2SAT 90–99
[2023-05-30] MEDS: sodium chloride 0.9% 1,000 ML 100 ML IV ×3 (03:18→21:36)
[2023-05-30] MEDS: citalopram 20 mg Tablet PO (05:43)
[2023-05-30] MEDS: gabapentin 300 mg Capsule PO (05:43)
[2023-05-30 05:48] LABS: Hematocrit 37.6 % (37-53)
[2023-05-30] MEDS: dextrose 5%-sod chloride 0.45% 1,000 ML 100 ML IV (09:27)
--- NOTE | 2023-05-30 10:00 | PC.CHAP ---
Pastoral Care Encounter/Spiritual Assessment Type of Contact [] Declined jewelry setter visit [] Patient/Family/Request visit [] Outpatient visit [] Follow-up visit [] Physician referral [] Code/Alert [] Routine visit [] Staff referral [] Actively dying [x] Patient sleeping [] Family support [] [] Out of room [] Palliative care [] [] Receiving care in room [] Pre-surgical visit [] Trauma [] Long length of stay [] ICU visit [] Other: Relational/Emotional Strength [] Patient feels connected with others/family/visitors/staff [] Distress [] Loneliness/isolation [] Abandonment Spirituality of Patient [] Person of Michelle [] Attends Christianity of their Michelle [] Believes in Prayer [] Reads Bible or Buddhist materials [] There are Spiritual issues to be addressed Concrete Rubber Interventions [] Prayer [] Active listening [] Non-anxious presence [] Spiritual/emotional support [] Crisis/trauma care [] Spiritual counseling [] Bereavement support [] Provided bereavement packet [] Provided Bible/devotional materials [] Provided toy/stuffed animal, coloring book to patient or family member [] Provided Communion [] Anointing/[place] [] Salvation [] Completed spiritual assessment [] Other: Impact on Illness or Injury [] Angry [] Fearful [] Anxious [] Often cries [] Exhaustion [] Unable to work [] Unable to attend tenriism [] Unable to walk/stand [] Unable to read [] Unable to drive [] Unable to eat/drink [] Unable to sleep [] Unable to be with family [] Patient intubated [] Other: Summary Time spent with patient
--- NOTE | 2023-05-30 11:32 | PM.OP ---
Operative Report Date of procedure: May 30, 2023 Pre-op diagnosis: Hemoptysis Post-op diagnosis: Hemoptysis Procedure done: Procedure : 84331 Dx Bronchoscope w/Washings or airway inspection [id number] Bronchoscopy w/ therapeutic aspiration of the tracheobronchial tree (clearance of airway secretions, removal of mucus plugs) Surgeon: Nico Hare MD Brief History: Ricky Flores is a 57 year old male? with a history of? 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 He has first incidence of hemoptysis in October 2020 -Noted to have infiltrating adenocarcinoma of the esophagus through the posterior tracheal membrane with 85 to 90% occlusion of the lumen-s/p tumor debulking done at [facility] by Dr. Quintana twice in 2020 Second episode October 2021-patient came to ER for hemoptysis from PCP office-admitted for observation;I have seen Mr. Ricky Flores at that time - and subsequent bronchoscopy did not reveal any active bleeding.Patient reported he did not have any further episodes of bleeding since then. He had proton beam radiation therapy in February 2023-for secondary involvement of the intrathoracic lymph nodes and trachea.? He is on chronic Herceptin therapy. Yesterday 05/29/2023: Comes to emergency room for 2 episodes of coughing up bright red clots. His H&H remained stable. CT of the chest with contrast demonstrating an increased high right paratracheal soft tissue mass abutting the trachea with mild tracheal displacement.? It does not significantly enhance but in similar location to the abnormal lymph node described in November 2021.? There is loss of fat plane between the trachea and this paratracheal soft tissue mass which measures 1.8 x 3.1 cm extending over a length of 3.7 cm.? He is followed at [place] as well as with Dr. Kearns locally.?His last dose of Herceptin was 3 weeks ago with next dose due tomorrow 05/30.? He had been doing well until today morning when he developed hemoptysis. He was admitted for 24-hour observation And bronchoscopic inspection Today morning Just prior to scheduled bronchoscopy-patient started coughing up bright red blood -1-2 Teaspoonful. Procedure: Procedure : 93320 Dx Bronchoscope w/Washings or airway inspection [id number] Bronchoscopy w/ therapeutic aspiration of the tracheobronchial tree (clearance of airway secretions, removal of mucus plugs) Pre-Operative Diagnosis:Hemoptysis Post-Operative Diagnosis: Same Consent: Consents were obtained from Patient and placed in the chart Pre-procedure Evaluation: Patient was evaluated clinically and ancillary testing reviewed. The risk of having active MTB infection is very low in my clinical judgement. ASA: 3 Malampati score: unable to evaluate due to presence of endotracheal tube Indication: Hemoptysis in patient with history of infiltrating adenocarcinoma of esophagus with intrathoracic lymph node and tracheal involvement Time out: Performed by the procedure team and nursing staff. Vent support maintained on Fio2 100. Anesthesia: Managed as per anesthesia team Local anesthesia: The mat in the right and left mainstem bronchi were anesthetized with 1% lidocaine, 6 mL. Summary of Significant Findings: -Bronchoscope passed through ET tube used for initial inspection (01351) and airway clearance. The scope was advanced through the ET tube. The lower trachea mucosa appeared normal, no endotracheal lesion was seen. The mat was sharp. There were Bright red bloody secretions throughout lower trachea and bilateral mainstem bronchi. The mat, the right and left mainstem bronchi are anesthetized with 1% lidocaine. In a systematic manner bilateral bronchial tree was then examined. The bronchoscope was advanced into the left mainstem bronchus. There were bright red bloody secretions throught out left bronchial tree. All the secretions were suctioned . The mucosa appeared normal with no endobronchial lesions. The left upper lobe, lingula and left lower lobe bronchi were examined up to the third subsegmental level and no abnormalities were identified. The mucosa appeared normal with no endobronchial lesions or active bleeding. The bronchoscope was then introduced into the right mainstem bronchus. There were bright red bloody secretions throught out right bronchial tree. All the secretions were suctioned. The right upper lobe, right middle lobe and right lower lobe bronchi were examined up to the third subsegmental level and no abnormalities were identified. The mucosa appeared normal with no endobronchial lesions or active bleeding. After clearing bilateral airways-waited for 10 minutes and then Reinspected all airways to check for any active bleeding.There appeared to be slow oozing from left lower lobe . 10 cc diluted epinephrine and 10 cc cold saline were instilled. Waited for 10 more minutes and reinspected-did not see any active bleeding. Estimated Blood Loss:5 to 10 cc Complications:None; patient tolerated the procedure well. Disposition: Patient Will be transferred to floor for observation. I have discussed with hospitalist he need close monitoring in a higher facility and if he continues to bleed - he may need IR guided embolization.. Surgeon: Nico Hare MD, [facility] Pulmonary critical Care Medicine [facility] Related Problem List Diagnoses (1) Hemoptysis:
[2023-05-30] MEDS: sodium chloride 0.9% 1,000 ML 30 ML IV (12:21)
--- NOTE | 2023-05-30 12:33 | ANES.PREANE2 ---
Pre-Anesthetic Assessment Height/Weight: Height 1.91 m Weight 108.862 kg Temp Pulse Resp BP Pulse Ox O2 Del Method 97.0 F L 52 L 17 174/93 97 Room Air 05/30/23 12:06 05/30/23 12:06 05/30/23 12:06 05/30/23 12:06 05/30/23 12:06 05/30/23 12:06 Operation Date: 05/30/23 12:00 Proposed Procedures p Bronchoscopy(Not Applicable) - Nico Padilla DatarMD Familial anesthetic complications: None Was Beta Naun taken within 24 hours: N/A Was Clonidine taken within 24 hours: N/A Last intake: Intake Last Liquid Date 05/29/23 Last Liquid Time 23:59 Last Solid Date 05/29/23 Last Solid Time 22:00 Social Tobacco (smokeless) Airway Submandibular: within normal limits Cervical ROM: within normal limits Mallampati: Class II Dentition: full Pulmonary Cough CV/HEM Hypertension Metabolic Diabetes Mellitus, Hyperlipidemia and Thyroid Disease Neuropsych Anxiety Anesthetic Plan ASA status: 3 Anesthesia: Anesthesia Evaluation and General Risk of > 500 ml blood loss (7ml/kg in children): No Medications/Allergies Home Medications Medication Instructions Recorded Confirmed Last Taken Type blood-glucose meter (Accu-Chek #1 ea 03/09/20 05/29/23 Unknown Rx Guide Me Glucose Meter) lancets (Accu-Chek Fastclix Lancet See Rx Instructions .Route 06/25/21 05/29/23 05/28/23 Rx Drum) .COMPLEX #102 ea dexamethasone sodium phosphate 10 10 mg IV .PREMED BEFORE CHEMO 10/13/21 05/29/23 Unknown History mg/mL injection solution timolol maleate 0.5 % eye drops 1 drp ophthalmic (eye) DAILY 10/13/21 05/29/23 05/28/23 History trastuzumab-dkst 420 mg 840 mg IV .EVERY 3 WEEKS 10/13/21 05/29/23 10/11/21 History intravenous solution (Ogivri) citalopram 20 mg tablet 20 mg PO QAM #90 tabs 11/03/21 05/29/23 05/28/23 Rx gabapentin 300 mg capsule 300 mg PO QAM #90 caps 11/03/21 05/29/23 05/28/23 Rx nebivolol 10 mg tablet (Bystolic) 10 mg PO QAM #90 tabs 11/03/21 05/29/23 05/28/23 Rx pantoprazole 40 mg tablet,delayed 40 mg PO BID #180 tabs 11/03/21 05/29/23 05/28/23 Rx release tamsulosin 0.4 mg capsule 0.4 mg PO BID #180 caps 11/03/21 05/29/23 05/28/23 Rx pen needle, diabetic 31 gauge x #100 ea 02/28/22 05/29/23 Unknown Rx 5/16 (Lite Touch Insulin Pen [place]) blood sugar diagnostic (Accu-Chek #100 ea 03/14/22 05/29/23 Unknown Rx Guide test strips) lorazepam 1 mg tablet 1 mg PO TID PRN nausea #90 tabs 07/11/22 05/29/23 Unknown Rx insulin lispro 200 unit/mL (3 mL) See Rx Instructions .Route 07/13/22 05/29/23 05/28/23 Rx subcutaneous pen (Humalog KwikPen .COMPLEX #18 mL U-200 Insulin) cholecalciferol (vitamin D3) 1,250 50,000 unit PO Q7D 12/26/22 05/29/23 Unknown History mcg (50,000 unit) tablet oxycodone-acetaminophen 10 mg-325 1 tab PO Q6H PRN pain 30 days #90 01/16/23 05/29/23 Unknown Rx mg tablet tabs levothyroxine 150 mcg tablet 150 mcg PO DAILY #90 tabs 04/24/23 05/29/23 05/28/23 Rx glimepiride 4 mg tablet 4 mg PO BID 05/29/23 05/29/23 05/28/23 History insulin glargine 100 unit/mL (3 70 unit SUBCUT BEDTIME 05/29/23 05/29/23 05/28/23 History mL) subcutaneous pen (Lantus Solostar U-100 Insulin) palonosetron 0.25 mg/5 mL 0.25 mg IV DIRECTED PRN 05/29/23 05/29/23 Unknown History intravenous solution premedication before chemo prochlorperazine maleate 10 mg 10 mg PO Q6H PRN Nausea 05/29/23 05/29/23 Unknown History tablet Allergies Allergy/AdvReac Type Severity Reaction Status Date / Time morphine Allergy Severe ALGY-Anaphy Verified 04/17/23 09:44 laxis Current Medications Generic Name Dose Route Start Last Admin Trade Name Radha PRN Reason Stop Dose Admin Citalopram Hydrobromide 20 mg 05/30/23 06:00 05/30/23 05:43 Citalopram 20 Mg Tablet PO 20 mg QAM ROSAS Administration Gabapentin 300 mg 05/30/23 06:00 05/30/23 05:43 Gabapentin 300 Mg Capsule PO 300 mg QAM ROSAS Administration Dextrose/Sodium Chloride 1,000 mls @ 100 mls/hr 05/30/23 09:15 05/30/23 09:27 Dextrose 5%-Sod Chloride 0.45% IV 100 mls/hr .Q10H ROSAS Administration Sodium Chloride 1,000 mls @ 30 mls/hr 05/30/23 12:15 05/30/23 12:21 Sodium Chloride 0.9% IV 05/31/23 12:14 30 mls/hr .Q24H ROSAS Administration Insulin Glargine 40 unit 05/29/23 21:00 05/29/23 20:43 Insulin Glargine 100 Units/1 Ml SUBCUT 40 unit BEDTIME ROSAS Administration Insulin Human Lispro 0 unit 05/29/23 18:00 05/30/23 11:23 Insulin Lispro 100 Unit/1 Ml SUBCUT Not Given TIDWM [facility] Protocol Insulin Human Lispro 0 unit 05/29/23 21:00 05/29/23 20:44 Insulin Lispro 100 Unit/1 Ml SUBCUT 4 unit BEDTIME ROSAS Administration Protocol Levothyroxine Sodium 150 mcg 05/30/23 09:00 05/30/23 08:57 Levothyroxine 150 Mcg Tablet PO Not Given DAILY [facility] Non-Formulary Medication 10 mg 05/29/23 21:00 05/30/23 08:57 Nebivolol [Bystolic] PO Not Given QAM ROSAS Oxycodone/Acetaminophen 1 tab 05/29/23 16:18 05/29/23 23:01 Oxycodone-Apap 10-325 Mg Tablet PO 1 tab Q6H PRN Administration SEVERE PAIN Pantoprazole Sodium 40 mg 05/29/23 18:00 05/30/23 08:[address] 40 Mg Tablet PO Not Given BID [facility] Tamsulosin HCl 0.4 mg 05/29/23 18:00 05/30/23 08:58 Tamsulosin 0.4 Mg Capsule PO Not Given BID [facility] Timolol Maleate 1 drop 05/30/23 09:00 05/30/23 08:58 Timolol 0.5% Op Soln 5 Ml Btl EYE-BOTH Not Given DAILY [facility] Anesthesia Medical History Acquired hypothyroidism 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, treated with surgery, chemo and radiation Candidal UTI (urinary tract infection) Chronic sinusitis Cystitis cystica Degenerative arthritis Diabetes mellitus Type II, insulin requiring Essential (primary) hypertension Glaucoma History of echocardiogram 04/2023 at with EF 58 % History of iron deficiency anemia Hypertriglyceridemia Hypogonadism Incomplete bladder emptying YARED on CPAP 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 Josue History of total right hip arthroplasty (~07/2019) Hx of colonoscopy Port-A-Cath in place (02/24/20) S/P bronchoscopy (10/2020) Bronchoscopy with palliative resection of tracheal mass S/P cataract surgery S/P ureteral stent placement ESWL Family History Father Heart disease Mother Hypertension Recurrent urinary tract infection Dementia Other Chronic kidney disease (CKD) Diabetes Denies family history of CAD (coronary artery disease) Clotting disorder Hyperlipidemia Psychiatric illness Suicide Anesthesia complication Bleeding disorder Lung disease Cancer Stroke Social History Smoking and tobacco status: current every day smoker smokeless tobacco Smokeless tobacco user: chewing tobacco Alcohol intake: never Substance/Drug Use: never Adopted: No Caregiver/support person: No Lives independently: No Household members: spouse Housing: House Marital status: Current occupational status: disabled Data Anesthesia 05/30/23 05:30 05/29/23 11:35 Short CBC 05/29/23 05/29/23 05/30/23 Range/Units 11:35 18:07 05:30 WBC 5.69 (3.29-11.43) 10^3/uL Hgb 14.30 13.90 12.20 (11.27-16.99) g/dL Hct 43.7 42.2 37.6 (37-53) % MCV 87.4 (82-101) fl Plt Count 225 (157-399) 10^3/cmm Neut % (Auto) 61.1 % Neut # (Auto) 3.48 (1.8-7.7) 10^3/uL BMP 05/29/23 11:35 Sodium 142 Potassium 4.2 Chloride 107 Carbon Dioxide 29 BUN 10 Creatinine 0.6 L Glucose 150 H Calcium 8.9 Liver Function 05/29/23 Range/Units 11:35 Total Bilirubin 0.3 (0.15-1.2) mg/dL AST 20 (0-40) U/L ALT 23 (0-41) U/L Alkaline Phosphatase 113 (40-130) U/L Albumin 4.3 (3.5-5.2) g/dL Coags 05/29/23 05/29/23 11:35 12:17 PT Cancelled 13.90 INR Cancelled 1.04 APTT Cancelled 32.1 Cardiac Studies: No Data to Display
[2023-05-30] MEDS: EPINEPHrine 1 mg/mL INJ XX (13:24)
--- NOTE | 2023-05-30 13:26 | PC.NURSE ---
Addendum entered by Sera Russ RN 05/30/23 13:32: Additional 5 ml lavaged of epi in left lower lobe. Original Note: Lavaged epi in left lower lobe of lung by dr marks. 1 mg/ml epi in 500 normal saline mixture, 5 ml lavaged at 1325 for bleeding.
[2023-05-30] MEDS: lidocaine 1% INJ 10 mL (per mL) XX (13:31)
--- NOTE | 2023-05-30 13:53 | PM.PN ---
Subjective Subjective: Eft lower lobe bleeding noted after bronchoscopy Called [facility] to get him accepted, oncology team accepted the transfer Vitals/I&O/Wt Last Vital Signs Temp 97.0 F L 05/30/23 12:06 Pulse 52 L 05/30/23 12:06 Resp 17 05/30/23 12:06 BP 174/93 05/30/23 12:06 Pulse Ox 97 05/30/23 12:06 O2 Del Method Room Air 05/30/23 12:06 05/29/23 05/30/23 05/30/23 22:59 06:59 14:59 Intake Total 100 / 100 973.333 / 1073.333 613.333 / 613.333 Balance 100 / 100 973.333 / 1073.333 613.333 / 613.333 Weight last 48 hrs Weight 108.862 kg Physical Exam Narrative: Awake and alert GCS 15 Abdomen soft S1, S2 Doing well on room air Pleasant and cooperative Data 05/31/23 05:25 05/31/23 05:25 A&P Assessment and plan (1) Hemoptysis: Plan Called [facility], oncology team accepted he might need IR related embolization of bronchial vessels for active hemoptysis, Hold off on discharge planning for today Attestations Medical Necessity Statement*: Discharge tomorrow Diagnoses Hemoptysis R04.2
[2023-05-30] MEDS: oxyCODONE-APAP 10-325 mg Tablet 1 TAB PO (15:55)
[2023-05-30] MEDS: lanolin oint 7 gm 1 APPLIC TOPICAL (15:56)
[2023-05-30] MEDS: pantoprazole DR 40 mg Tablet PO (17:49)
[2023-05-30] MEDS: tamsulosin 0.4 mg Capsule PO (17:49)
[2023-05-30] MEDS: insulin lispro 100 unit/1 mL SUBCUT ×2 (17:55→21:28)
[2023-05-30] MEDS: amlodipine 10 mg Tablet PO (21:04)
[2023-05-30] MEDS: insulin glargine 100 units/1 mL 40 UNIT SUBCUT (21:25)
[2023-05-30 21:35] LABS: Glucose Point of Care 314 mg/dL (70-110)
[2023-05-31 03:50] VITALS: BP 150/76; PULSE 67; RESP 17; TEMP 36.4; O2SAT 94
[2023-05-31] MEDS: citalopram 20 mg Tablet PO (05:24)
[2023-05-31] MEDS: gabapentin 300 mg Capsule PO (05:25)
[2023-05-31] MEDS: levothyroxine 150 mcg Tablet PO (05:25)
[2023-05-31] MEDS: NON-FORMULARY MEDICATION (Nebivolol [Bystolic] 10 mg tablet) 10 EACH PO (05:25)
[2023-05-31 05:46] LABS: Basophils % 0.1 %; Hematocrit 41.5 % (37-53); Lymphocytes # 1.2 10^3/uL (0.8-4.8); Lymphocytes % 11.6 %; Mean Corpuscular HGB Conc 32.3 g/dL (30-55); Mean Corpuscular Hemoglobin 28.8 pg (27-33); Mean Corpuscular Volume 89.2 fl (82-101); Mean Platelet Volume 9.9 fL (7.4-10.4); Monocytes # 0.4 10^3/uL (0.2-0.9); Neutrophils # 8.68 10^3/uL (1.8-7.7); Neutrophils % 83.7 %; Nucleated Red Blood Cells % 0 %; Platelet Count 214 10^3/cmm (157-399); Red Blood Count 4.65 10^6/uL (3.85-5.65); Red Cell Distribution Width 14.3 % (12.1-15.1); White Blood Count 10.36 10^3/uL (3.29-11.43)
[2023-05-31 06:00] VITALS: PULSE 73
[2023-05-31 06:09] LABS: Anion Gap 15.1 (5-19); Blood Urea Nitrogen 8 mg/dL (6-20); Calcium 8.7 mg/dL (8.5-10.5); Carbon Dioxide 26 mmol/L (22-29); Chloride 102 mmol/L (98-107); Glomerular Filtration Rate 172.6 mL/min (90-130); Glucose 230 mg/dL (65-115); Osmolality Calculated 294 mOsm/kg (285-295); Potassium 4.1 mmol/L (3.5-5.1); Sodium 139 mmol/L (136-145)
[2023-05-31] MEDS: sodium chloride 0.9% 1,000 ML 100 ML IV (06:42)
[2023-05-31 07:43] VITALS: BP 144/84; PULSE 67; RESP 18; TEMP 36.4; O2SAT 96
[2023-05-31] MEDS: insulin lispro 100 unit/1 mL SUBCUT ×2 (07:48→11:51)
[2023-05-31] MEDS: pantoprazole DR 40 mg Tablet PO (07:49)
[2023-05-31] MEDS: tamsulosin 0.4 mg Capsule PO (07:49)
[2023-05-31] MEDS: timolol 0.5% Op Soln 5 mL Btl 1 DROP EYE-BOTH (08:01)
--- NOTE | 2023-05-31 08:56 | PC.NURSE ---
Blood glucose at 0800 this am per Dexcom 267 and steady.
--- NOTE | 2023-05-31 09:44 | PM.DCS ---
Discharge Providers Date of Admission: 05/29/23 15:14 Date of Discharge: May 30, 2023 Attending Provider at Admission: Shannan Carey MD Attending Provider at Discharge: Shannan Carey MD Primary Care Provider: Luis Luna MD Diagnoses at Discharge Discharge Diagnosis (1) Hemoptysis: Status: Acute (2) Cough variant asthma: Status: Acute (3) Malignant neoplasm of lower third of esophagus: Status: Acute Permanent problem details: Stage X - T3(yp), N1(yp), M0, G1 (4) Secondary and unspecified malignant neoplasm of intrathoracic lymph nodes: Status: Acute Reason for Visit Reason for Visit: coughing blood (cancer pt) Hospital Course Hospital Course dotty Flores is a 57 year old male with a history of adenocarcinoma of the distal esophagus, HER2 nu positive.? He has had secondary involvement of the intrathoracic lymph nodes and trachea.? He is on chronic Herceptin therapy.? He underwent proton beam radiation therapy in February of this year.? He is followed at [facility] as well as with Dr. Kearns locally.? His last dose of Herceptin was 3 weeks ago with next dose due?05/30, patient was admitted under observation for bronchoscopy for his recurrent episode of hemoptysis, in the hospital he did not experience any recurrence of hemoptysis episodes at all, his hemoglobin remained stable he remained afebrile. Dr. Hare to do bronchoscopy, we are discharging him from the hospital on same day so he could attend his IV infusion at Dr. Kearns's clinic. For further details please read H&P by Dr. Carey & consultation note of Dr. Hare Bronchoscopy showed mild bleeding in the left lower lobe, case was discussed with [facility] he was accepted by the oncology team, however his hemoglobin remained stable, he remained hemodynamically stable, no recurrence of hemoptysis Patient has been counseled to follow-up with his doctor at [facility] in case of recurrence of hemoptysis After discussion with Dr. Hare we decided to discharge patient home because he was stable without any recurrence of hemoptysis. Hemoglobin on discharge is 13.4. Blood pressure is stable We will call oncology clinic for his IV session of chemotherapy Physical Exam Narrative: Awake and alert GCS 15 S1, S2 Abdomen soft Able, PERRLA Doing well on room air Discharge Data Studies Completed and Pending Completed Studies During Hospitalization Category Date Time Status CT chest w con* [id number] Stat Cat Scan 05/29/23 11:41 Completed XR chest 1V portable [id number] Stat Exams 05/29/23 10:32 Completed Radiology Impressions Chest X-Ray 05/29/23 10:32 IMPRESSION: No evidence of acute pulmonary process. Laboratory Results WBC 5.69 10^3/uL (3.29-11.43) 05/29/23 11:35 RBC 5.00 10^6/uL (3.85-5.65) 05/29/23 11:35 Hgb 12.20 g/dL (11.27-16.99) 05/30/23 05:30 Hct 37.6 % (37-53) 05/30/23 05:30 MCV 87.4 fl (82-101) 05/29/23 11:35 MCH 28.6 pg (27-33) 05/29/23 11:35 MCHC 32.7 g/dL (30-55) 05/29/23 11:35 RDW 14.1 % (12.1-15.1) 05/29/23 11:35 Plt Count 225 10^3/cmm (157-399) 05/29/23 11:35 MPV 9.9 fL (7.4-10.4) 05/29/23 11:35 Neut % (Auto) 61.1 % 05/29/23 11:35 Lymph % (Auto) 25.7 % 05/29/23 11:35 [place] % (Auto) 10.0 % 05/29/23 11:35 Eos % (Auto) 1.9 % 05/29/23 11:35 Baso % (Auto) 0.9 % 05/29/23 11:35 Neut # (Auto) 3.48 10^3/uL (1.8-7.7) 05/29/23 11:35 Lymph # (Auto) 1.5 10^3/uL (0.8-4.8) 05/29/23 11:35 [place] # (Auto) 0.6 10^3/uL (0.2-0.9) 05/29/23 11:35 Eos # (Auto) 0.1 10^3/uL (0.0-0.8) 05/29/23 11:35 Baso # (Auto) 0.1 10^3/uL (0.0-0.1) 05/29/23 11:35 Nucleated RBC % (auto) 0 % 05/29/23 11:35 Nucleated RBCs # 0.0 /100WBC 05/29/23 11:35 PT 13.90 SECONDS (12.1-14.9) 05/29/23 12:17 INR 1.04 (0.8-1.2) 05/29/23 12:17 APTT 32.1 SECONDS (23.9-36.7) 05/29/23 12:17 Sodium 142 mmol/L (136-145) 05/29/23 11:35 Potassium 4.2 mmol/L (3.5-5.1) 05/29/23 11:35 Chloride 107 mmol/L (98-107) 05/29/23 11:35 Carbon Dioxide 29 mmol/L (22-29) 05/29/23 11:35 Anion Gap 10.2 (5-19) 05/29/23 11:35 BUN 10 mg/dL (6-20) 05/29/23 11:35 Creatinine 0.6 mg/dL (0.7-1.2) L 05/29/23 11:35 GFR Calculation 139.9 mL/min (90-130) H 05/29/23 11:35 Glucose 150 mg/dL (65-115) H 05/29/23 11:35 Calculated Osmolality 296 mOsm/kg (285-295) H 05/29/23 11:35 Calcium 8.9 mg/dL (8.5-10.5) 05/29/23 11:35 Total Bilirubin 0.3 mg/dL (0.15-1.2) 05/29/23 11:35 AST 20 U/L (0-40) 05/29/23 11:35 ALT 23 U/L (0-41) 05/29/23 11:35 Alkaline Phosphatase 113 U/L (40-130) 05/29/23 11:35 Total Protein 6.6 g/dL (6.6-8.7) 05/29/23 11:35 Albumin 4.3 g/dL (3.5-5.2) 05/29/23 11:35 Globulin 2.3 g/dL (1.3-4.6) 05/29/23 11:35 Vitals Last Vital Signs Temp 97.5 F L 05/30/23 08:00 Pulse 51 L 05/30/23 08:00 Resp 20 H 05/30/23 08:00 BP 152/89 05/30/23 08:00 Pulse Ox 96 05/30/23 08:00 O2 Del Method Room Air 05/30/23 08:00 Discharge Plan Discharge Patient Disposition: Home Condition: Stable Prescriptions: Continued pantoprazole 40 mg tablet,delayed release (DR/EC) 40 mg PO BID Qty: 180 3RF citalopram 20 mg tablet 20 mg PO QAM Qty: 90 3RF gabapentin 300 mg capsule 300 mg PO QAM Qty: 90 3RF Bystolic 10 mg tablet 10 mg PO QAM Qty: 90 3RF tamsulosin 0.4 mg capsule 0.4 mg PO BID Qty: 180 3RF cholecalciferol (vitamin D3) 1,250 mcg (50,000 unit) tablet 50,000 unit PO Q7D Rx Instructions: 50,000 units orally weekly; lorazepam 1 mg tablet 1 mg PO TID PRN (Reason: nausea) Qty: 90 2RF (DME) blood-glucose meter [Accu-Chek Guide Me Glucose Mtr] Misc See Rx Instructions .ROUTE .MEDSUPPLY Qty: 1 0RF Rx Instructions: to check blood sugar as direced lancets [Accu-Chek Fastclix Lancet Drum] Misc See Rx Instructions .ROUTE .COMPLEX Qty: 102 5RF Dose Instruction: USE 1 TO CHECK BLOOD SUGAR 3-4 TIMES DAILY DIRECTED Rx Instructions: USE 1 TO CHECK BLOOD SUGAR 3-4 TIMES DAILY DIRECTED (DME) pen needle, diabetic [Lite Touch Insulin Pen [place]] 31 gauge x 5/16 needle See Rx Instructions .Route Qty: 100 12RF Rx Instructions: As directed (DME) Accu-Chek Guide test strips Strip See Rx Instructions .ROUTE .MEDSUPPLY Qty: 100 5RF Rx Instructions: to test blood sugar as directed 3-4 times daily Humalog KwikPen Insulin 200 unit/mL (3 mL) insulin pen See Rx Instructions .ROUTE .COMPLEX Qty: 18 3RF Rx Instructions: sliding scale subcutaneously prn oxycodone-acetaminophen 10-325 mg tablet 1 tab PO Q6H PRN (Reason: pain) 30 Days Qty: 90 0RF levothyroxine 150 mcg tablet 150 mcg PO DAILY Qty: 90 0RF timolol maleate 0.5 % drops 1 drp ophthalmic (eye) DAILY Rx Instructions: in left eye dexamethasone sodium phosphate 10 mg/mL Solution 10 mg IV .PREMED BEFORE CHEMO Og[place]ri 420 mg Recon Soln 840 mg IV .EVERY 3 WEEKS Rx Instructions: prior to pump infusion prochlorperazine maleate 10 mg Tablet 10 mg PO Q6H PRN (Reason: Nausea) glimepiride 4 mg Tablet 4 mg PO BID [place] 0.25 mg/5 mL Solution 0.25 mg IV DIRECTED PRN (Reason: premedication before chemo) Lantus Solostar U-100 Insulin 100 unit/mL (3 mL) insulin pen 70 unit SUBCUT BEDTIME Discharge Orders: Discharge Order (Routine); Ordered 05/31/23 Ordered By: Matilde Jack Referrals: Luis Luna MD [Primary Care Provider] - Patient Instructions: Opioid Safety Discharge Attestations Time Spent in Discharge Care*: greater than 30 min Status at Discharge: Cognitive status at discharge: cognitively intact, Behavioral status at discharge: cooperative, Quality Metrics Clinical Quality Measures [ No reported AMI, CVA or VTE this stay] Coding Level of Care Code Acute Code for Chg Fwd Diagnoses Hemoptysis R04.2 Cough variant asthma J45.991 Malignant neoplasm of lower third of esophagus C15.5 Secondary and unspecified malignant neoplasm of intrathoracic lymph nodes C77.1
[2023-05-31 10:48] VITALS: BP 144/84; PULSE 67; RESP 18; TEMP 36.4; O2SAT 96
--- NOTE | 2023-05-31 11:19 | PC.CHAP ---
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 [] Patient/Family/Request visit [] Outpatient visit [] Follow-up visit [] Physician referral [] Code/Alert [x] Routine visit [] Staff referral [] Actively dying [] Patient sleeping [] Family support [] [] Out of room [] Palliative care [] [] Receiving care in room [] Pre-surgical visit [] Trauma [] Long length of stay [] ICU visit [] Other: Relational/Emotional Strength [] Patient feels connected with others/family/visitors/staff [] Distress [] Loneliness/isolation [] Abandonment Spirituality of Patient [x] Person of Michelle [] Attends Taoism of their Michelle [x] Believes in Prayer [] Reads Bible or Mormon materials [] There are Spiritual issues to be addressed 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 Coking Interventions [x] Prayer [x] Active listening [] Non-anxious presence [] Spiritual/emotional support [] Crisis/trauma care [] Spiritual counseling [] Bereavement support [] Provided bereavement packet [] Provided Bible/devotional materials [] Provided toy/stuffed animal, coloring book to patient or family member [] Provided Communion [] Anointing/[place] [] Salvation [] Completed spiritual assessment [] Other: Impact on Illness or Injury [] Angry [] Fearful [] Anxious [] Often cries [] Exhaustion [] Unable to work [] Unable to attend yarsani [] Unable to walk/stand [] Unable to read [] Unable to drive [] Unable to eat/drink [] Unable to sleep [] Unable to be with family [] Patient intubated [] Other: Summary Time spent with patient 15 min
[2023-05-31 11:40] VITALS: BP 120/73; PULSE 72; RESP 19; TEMP 36.5; O2SAT 96
--- NOTE | 2023-05-31 11:45 | PC.NURSE ---
Blood glucose per Dexcom 243. 8 units Humalog administered per sliding scale.
--- NOTE | 2023-05-31 12:21 | PC.NURSE ---
Patient discharged to home. at bedside. Discharge instructions given with no questions or concerns voiced at this time. All pt. belongings are with patient. Patient has an appt in the cancer center for chemo at this time. Patient and ambulate to cancer center.
--- NOTE | 2023-05-31 13:15 | PM.PN ---
Subjective Subjective: Patient denied any episodes of hemoptysis last 24 hours H&H is stable Hemodynamically stable Recommended patient to call oncology at [facility] and make appointment Medications: Reviewed: Yes Vitals/I&O/Wt Last Vital Signs Temp 97.7 F 05/31/23 11:40 Pulse 72 05/31/23 11:40 Resp 19 H 05/31/23 11:40 BP 120/73 05/31/23 11:40 Pulse Ox 96 05/31/23 11:40 O2 Del Method Room Air 05/31/23 11:40 O2 Flow Rate 3 05/30/23 14:10 05/30/23 05/31/23 05/31/23 22:59 06:59 14:59 Intake Total 1870 / 2983.333 910 / 3893.333 480 / 480 Balance 1870 / 2982.333 910 / 3892.333 480 / 480 Physical Exam Narrative: General: alert, NAD HEENT: conj clear, EOMI, PERRL, mmm, Neck: supple, no meningismus Heme: no cervical LAP Respiratory: Inspection: No visible deformity of the chest wall Palpation: Trachea is mildly deviated to the right, bilateral symmetric expansion Percussion: Bilateral tympanic percussion note both anterior and posteriorly Auscultation: Bilateral clear to auscultation both anterior and posteriorly, no crackles wheezing or rhonchi Cardiovascular: rrr, nl s1s2, no mrg Abdomen: soft, nt, nd, no r/g, bs+ Extremities: pulses +, no edema, no c/c : no CVA tenderness Skin: intact, no rash MSK: no back or neck pain Neurologic: grossly intact Data 05/31/23 05:25 05/31/23 05:25 Other Labs: Radiology Impressions Chest X-Ray 05/29/23 10:32 IMPRESSION: No evidence of acute pulmonary process. Laboratory Results WBC 10.36 10^3/uL (3.29-11.43) 05/31/23 05:25 RBC 4.65 10^6/uL (3.85-5.65) 05/31/23 05:25 Hgb 13.40 g/dL (11.27-16.99) 05/31/23 05:25 Hct 41.5 % (37-53) 05/31/23 05:25 MCV 89.2 fl (82-101) 05/31/23 05:25 MCH 28.8 pg (27-33) 05/31/23 05:25 MCHC 32.3 g/dL (30-55) 05/31/23 05:25 RDW 14.3 % (12.1-15.1) 05/31/23 05:25 Plt Count 214 10^3/cmm (157-399) 05/31/23 05:25 MPV 9.9 fL (7.4-10.4) 05/31/23 05:25 Neut % (Auto) 83.7 % 05/31/23 05:25 Lymph % (Auto) 11.6 % 05/31/23 05:25 Pepin % (Auto) 4.0 % 05/31/23 05:25 Eos % (Auto) 0.0 % 05/31/23 05:25 Baso % (Auto) 0.1 % 05/31/23 05:25 Neut # (Auto) 8.68 10^3/uL (1.8-7.7) H 05/31/23 05:25 Lymph # (Auto) 1.2 10^3/uL (0.8-4.8) 05/31/23 05:25 Pepin # (Auto) 0.4 10^3/uL (0.2-0.9) 05/31/23 05:25 Eos # (Auto) 0.0 10^3/uL (0.0-0.8) 05/31/23 05:25 Baso # (Auto) 0.0 10^3/uL (0.0-0.1) 05/31/23 05:25 Nucleated RBC % (auto) 0 % 05/31/23 05:25 Nucleated RBCs # 0.0 /100WBC 05/31/23 05:25 PT 13.90 SECONDS (12.1-14.9) 05/29/23 12:17 INR 1.04 (0.8-1.2) 05/29/23 12:17 APTT 32.1 SECONDS (23.9-36.7) 05/29/23 12:17 Sodium 139 mmol/L (136-145) 05/31/23 05:25 Potassium 4.1 mmol/L (3.5-5.1) 05/31/23 05:25 Chloride 102 mmol/L (98-107) 05/31/23 05:25 Carbon Dioxide 26 mmol/L (22-29) 05/31/23 05:25 Anion Gap 15.1 (5-19) 05/31/23 05:25 BUN 8 mg/dL (6-20) 05/31/23 05:25 Creatinine 0.5 mg/dL (0.7-1.2) L 05/31/23 05:25 GFR Calculation 172.6 mL/min (90-130) H 05/31/23 05:25 Glucose 230 mg/dL (65-115) H 05/31/23 05:25 POC Glucose 314 mg/dL (70-110) H 05/30/23 21:24 Calculated Osmolality 294 mOsm/kg (285-295) 05/31/23 05:25 Calcium 8.7 mg/dL (8.5-10.5) 05/31/23 05:25 Total Bilirubin 0.3 mg/dL (0.15-1.2) 05/29/23 11:35 AST 20 U/L (0-40) 05/29/23 11:35 ALT 23 U/L (0-41) 05/29/23 11:35 Alkaline Phosphatase 113 U/L (40-130) 05/29/23 11:35 Total Protein 6.6 g/dL (6.6-8.7) 05/29/23 11:35 Albumin 4.3 g/dL (3.5-5.2) 05/29/23 11:35 Globulin 2.3 g/dL (1.3-4.6) 05/29/23 11:35 A&P Assessment and plan (1) Hemoptysis: First instance: October 2020 - patient came to ER for hemoptysis-Dr. Vargas performed flexible bronchoscopy at that time showed exophytic mass possibly from infiltrating adenocarcinoma of the esophagus seen marginated from posterior tracheal membrane at the level of of about 3.5 to 4 cm below vocal cords with associated 85 to 90% occlusion of the lumen.? 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 As per patient and his -he has to undergo tumor debulking second time in January 2021 and since then he did not have any hemoptysis.? Also is receiving chemotherapy for his metastatic esophageal cancer at [facility] and they have been following with surveillance CT scans but never mentioned any recurrence of tracheal growth on imaging. Second instance October 2021-patient came to ER for hemoptysis from PCP office-admitted for observation;I have seen Mr. Ricky Flores at that time - and subsequent bronchoscopy did not reveal any active bleeding.Patient reported he did not have any further episodes of bleeding since then. Third instance 05/29/2023: 2 episodes of coughing up bright red clots. H&H is stable. T of the chest with contrast demonstrating an increased high right paratracheal soft tissue mass abutting the trachea with mild tracheal displacement.? It does not significantly enhance but in similar location to the abnormal lymph node described in November 2021.? There is loss of fat plane between the trachea and this paratracheal soft tissue mass which measures 1.8 x 3.1 cm extending over a length of 3.7 cm.? He has had secondary involvement of the intrathoracic lymph nodes and trachea.? He is on chronic Herceptin therapy.? He underwent proton beam radiation therapy in February 2023.? He is followed at [facility] as well as with Dr. Kearns locally.?His last dose of Herceptin was 3 weeks ago with next dose due tomorrow 05/30. He had been doing well until 05/31/2023 when he had another episode hemoptysis-he was admitted for observation and bronchoscopic evaluation The next day just prior to bronchoscopy-patient had another episode of hemoptysis-during bronchoscopy slow oozing of blood noted in left lower lobe-instilled diluted epinephrine as well as cold saline Patient was accepted for transfer to [facility] however there was no bed availability He was observed for next 24 hours-H&H remained stable, no more episodes of hemoptysis, hemodynamically stable Informed patient that he can be discharged however he has to make appointment with his oncology as outpatient Attestations Medical Necessity Statement*: Clinically stable Coding Level of Care Code 10435 Diagnoses Hemoptysis R04.2 Time Spent (min) 35
== END 2023-05-31 12:23 | disposition home or self-care (01) ==
LOC: ER 11:30 → MEDSURG 16:24
PROVIDERS: Internal Medicine; Internal Medicine Pulmonary Disease; Admitting Provider Hospitalist; Emergency Provider Family Medicine; PCP Internal Medicine; Visit Provider Hospitalist
PROC: 0BJ08ZZ Inspection of Tracheobronchial Tree, Via Natural or Artificial Opening Endoscopic (ICD-10-PCS; CPT 31622; principal; 2023-05-30 11:50)
DX: R04.2 Hemoptysis (principal); J45.991 Cough variant asthma; C15.5 Malignant neoplasm of lower third of esophagus; C77.1 Secondary and unspecified malignant neoplasm of intrathoracic lymph nodes; I10 Essential (primary) hypertension; E11.9 Type 2 diabetes mellitus without complications; E78.5 Hyperlipidemia, unspecified; Z79.4 Long term (current) use of insulin; E03.9 Hypothyroidism, unspecified; G47.33 Obstructive sleep apnea (adult) (pediatric); F17.220 Nicotine dependence, chewing tobacco, uncomplicated
CPT/HCPCS: 31645; 36415; 36416; 36591; 71045; 71260; 80048; 80053; 82962; 85014; 85018; 85025; 85610; 85730; 96361; 96372; 96374; 96413; 99285; G0378; J0171; J0330; J1100; J1642; J1815; J2250; J2405; J2704; J3010; J3490; J7030; J7050; J7799; Q5112; Q9967

== ENCOUNTER 2023-05-31 12:27 | Oncology outpatient (recurring) (ONCR) | payer MEDICARE, BC, SELFPAY ==
[2023-05-09 08:15] VITALS: BP 124/74; PULSE 71; RESP 16; TEMP 36.2; O2SAT 99; BMI 30.4
[2023-05-09] MEDS: sodium chloride 0.9% 250 ML 75 ML IV (08:21)
[2023-05-09] MEDS: loratadine 10 mg Tablet PO (08:21)
[2023-05-09] MEDS: acetaminophen 325 mg Tablet 650 MG PO (08:21)
[2023-05-09 10:05] VITALS: BP 139/78; PULSE 55; RESP 16; TEMP 36.2; O2SAT 96
[2023-05-30 14:00] LABS: Basophils % 0.7 %; Eosinophils # 0.2 10^3/uL (0.0-0.8); Eosinophils % 3.1 %; Hematocrit 39.4 % (37-53); Lymphocytes # 1.5 10^3/uL (0.8-4.8); Mean Corpuscular HGB Conc 32.2 g/dL (30-55); Mean Corpuscular Hemoglobin 28.5 pg (27-33); Mean Corpuscular Volume 88.5 fl (82-101); Mean Platelet Volume 10.4 fL (7.4-10.4); Monocytes # 0.6 10^3/uL (0.2-0.9); Monocytes % 9.6 %; Neutrophils # 3.59 10^3/uL (1.8-7.7); Neutrophils % 61.4 %; Nucleated Red Blood Cells % 0 %; Platelet Count 189 10^3/cmm (157-399); Red Blood Count 4.45 10^6/uL (3.85-5.65); Red Cell Distribution Width 14.3 % (12.1-15.1); White Blood Count 5.84 10^3/uL (3.29-11.43)
[2023-05-30 14:07] LABS: Alanine Aminotransferase 18 U/L (0-41); Albumin Level 3.7 g/dL (3.5-5.2); Alkaline Phosphatase 89 U/L (40-130); Anion Gap 11.6 (5-19); Aspartate Amino Transferase 16 U/L (0-40); Blood Urea Nitrogen 6 mg/dL (6-20); Carbon Dioxide 28 mmol/L (22-29); Chloride 104 mmol/L (98-107); Globulin 1.9 g/dL (1.3-4.6); Glomerular Filtration Rate 172.6 mL/min (90-130); Glucose 105 mg/dL (65-115); Osmolality Calculated 288 mOsm/kg (285-295); Potassium 3.6 mmol/L (3.5-5.1); Sodium 140 mmol/L (136-145); Total Bilirubin 0.4 mg/dL (0.15-1.2); Total Protein 5.6 g/dL (6.6-8.7)
[2023-05-31 13:00] VITALS: BP 145/75; PULSE 69; RESP 16; TEMP 36.7; O2SAT 95
[2023-05-31] MEDS: sodium chloride 0.9% 250 ML 75 ML IV (13:01)
[2023-05-31] MEDS: acetaminophen 325 mg Tablet 650 MG PO (13:01)
[2023-05-31 14:40] VITALS: BP 125/66; PULSE 83; RESP 16; TEMP 36.6; O2SAT 97
== END 2023-05-31 23:59 | disposition home or self-care (01) ==
PROVIDERS: PCP Internal Medicine; Visit Provider Internal Medicine Medical Oncology
DX: C15.5 Malignant neoplasm of lower third of esophagus; Z51.11 Encounter for antineoplastic chemotherapy
CPT/HCPCS: 80053; 85025; 96413; J1642; J7050; Q5112

== ENCOUNTER 2023-06-26 07:46 | Oncology outpatient (recurring) (ONCR) | payer MEDICARE, BC, SELFPAY ==
[2023-06-06 14:54] VITALS: BP 149/89; PULSE 61; RESP 16; TEMP 36.3; O2SAT 96
[2023-06-06 15:59] LABS: Alanine Aminotransferase 18 U/L (0-41); Albumin Level 4.1 g/dL (3.5-5.2); Alkaline Phosphatase 115 U/L (40-130); Aspartate Amino Transferase 18 U/L (0-40); Blood Urea Nitrogen 8 mg/dL (6-20); Calcium 8.8 mg/dL (8.5-10.5); Carbon Dioxide 28 mmol/L (22-29); Chloride 100 mmol/L (98-107); Globulin 2.3 g/dL (1.3-4.6); Glomerular Filtration Rate 172.6 mL/min (90-130); Glucose 272 mg/dL (65-115); Osmolality Calculated 290 mOsm/kg (285-295); Sodium 136 mmol/L (136-145); Testosterone Total 261.5 ng/dL (193-740); Thyroid Stimulating Hormone 0.24 uIU/mL (0.27-4.20); Total Bilirubin 0.2 mg/dL (0.15-1.2); Total Protein 6.4 g/dL (6.6-8.7)
[2023-06-06 16:02] LABS: Anion Gap 11.8 (5-19); Potassium 3.8 mmol/L (3.5-5.1)
[2023-06-06 16:40] LABS: Vitamin B12 495 pg/mL (232-1245)
[2023-06-26 07:49] VITALS: BP 148/79; PULSE 66; RESP 16; TEMP 37.1; O2SAT 96
[2023-06-26 08:10] LABS: Basophils % 0.4 %; Eosinophils # 0.2 10^3/uL (0.0-0.8); Eosinophils % 1.8 %; Hematocrit 42.1 % (37-53); Lymphocytes % 10.9 %; Mean Corpuscular HGB Conc 32.3 g/dL (30-55); Mean Corpuscular Hemoglobin 28.9 pg (27-33); Mean Corpuscular Volume 89.4 fl (82-101); Mean Platelet Volume 10.1 fL (7.4-10.4); Monocytes # 0.8 10^3/uL (0.2-0.9); Monocytes % 8.8 %; Neutrophils # 7.45 10^3/uL (1.8-7.7); Neutrophils % 77.8 %; Nucleated Red Blood Cells % 0 %; Platelet Count 230 10^3/cmm (157-399); Red Blood Count 4.71 10^6/uL (3.85-5.65); Red Cell Distribution Width 14.1 % (12.1-15.1); White Blood Count 9.57 10^3/uL (3.29-11.43)
[2023-06-26 08:30] LABS: Albumin Level 3.8 g/dL (3.5-5.2); Chloride 103 mmol/L (98-107)
[2023-06-26 09:24] LABS: Alanine Aminotransferase 18 U/L (0-41); Alkaline Phosphatase 111 U/L (40-130); Aspartate Amino Transferase 19 U/L (0-40); Blood Urea Nitrogen 12 mg/dL (6-20); Calcium 8.2 mg/dL (8.5-10.5); Carbon Dioxide 26 mmol/L (22-29); Globulin 2.3 g/dL (1.3-4.6); Glomerular Filtration Rate 117.1 mL/min (90-130); Glucose 365 mg/dL (65-115); Osmolality Calculated 301 mOsm/kg (285-295); Sodium 138 mmol/L (136-145); Total Bilirubin 0.3 mg/dL (0.15-1.2); Total Protein 6.1 g/dL (6.6-8.7)
[2023-06-26] MEDS: sodium chloride 0.9% 250 ML 75 ML IV (10:19)
[2023-06-26] MEDS: acetaminophen 325 mg Tablet 650 MG PO (10:20)
[2023-06-26] MEDS: loratadine 10 mg Tablet PO (10:20)
[2023-06-26 12:25] VITALS: BP 150/88; PULSE 57; RESP 16; TEMP 36.3; O2SAT 97
== END 2023-07-04 23:59 | disposition home or self-care (01) ==
PROVIDERS: PCP Internal Medicine; Visit Provider Internal Medicine Medical Oncology
DX: Z51.12 Encounter for antineoplastic immunotherapy (principal); C15.5 Malignant neoplasm of lower third of esophagus; F17.210 Nicotine dependence, cigarettes, uncomplicated
CPT/HCPCS: 36591; 80053; 82607; 84403; 84443; 85025; 96413; 96415; 99214; J1642; J7050; Q5112

== ENCOUNTER 2023-07-17 07:37 | Oncology outpatient (recurring) (ONCR) | payer MEDICARE, BC, SELFPAY ==
[2023-07-17 07:46] VITALS: BP 149/80; PULSE 73; RESP 16; TEMP 36.6; O2SAT 97
[2023-07-17 08:09] LABS: Basophils % 0.6 %; Eosinophils # 0.1 10^3/uL (0.0-0.8); Eosinophils % 1.9 %; Hematocrit 41.5 % (37-53); Lymphocytes # 1.5 10^3/uL (0.8-4.8); Lymphocytes % 24.6 %; Mean Corpuscular HGB Conc 32.8 g/dL (30-55); Mean Corpuscular Hemoglobin 28.7 pg (27-33); Mean Corpuscular Volume 87.6 fl (82-101); Mean Platelet Volume 9.9 fL (7.4-10.4); Monocytes # 0.7 10^3/uL (0.2-0.9); Monocytes % 11.8 %; Neutrophils # 3.76 10^3/uL (1.8-7.7); Neutrophils % 60.8 %; Nucleated Red Blood Cells % 0 %; Platelet Count 185 10^3/cmm (157-399); Red Blood Count 4.74 10^6/uL (3.85-5.65); Red Cell Distribution Width 14.1 % (12.1-15.1); White Blood Count 6.19 10^3/uL (3.29-11.43)
[2023-07-17 08:25] LABS: Alanine Aminotransferase 17 U/L (0-41); Alkaline Phosphatase 101 U/L (40-130); Anion Gap 11.8 (5-19); Aspartate Amino Transferase 14 U/L (0-40); Blood Urea Nitrogen 9 mg/dL (6-20); Calcium 9.2 mg/dL (8.5-10.5); Carbon Dioxide 29 mmol/L (22-29); Chloride 104 mmol/L (98-107); Globulin 2.3 g/dL (1.3-4.6); Glomerular Filtration Rate 139.9 mL/min (90-130); Glucose 117 mg/dL (65-115); Osmolality Calculated 292 mOsm/kg (285-295); Potassium 3.8 mmol/L (3.5-5.1); Sodium 141 mmol/L (136-145); Total Bilirubin 0.4 mg/dL (0.15-1.2); Total Protein 6.3 g/dL (6.6-8.7)
[2023-07-17] MEDS: loratadine 10 mg Tablet PO (10:06)
[2023-07-17] MEDS: acetaminophen 325 mg Tablet 650 MG PO (10:06)
[2023-07-17] MEDS: sodium chloride 0.9% 250 ML 75 ML IV (10:44)
[2023-07-17 11:30] VITALS: BP 126/76; PULSE 51; TEMP 36.4; O2SAT 96
== END 2023-08-03 23:59 | disposition home or self-care (01) ==
PROVIDERS: Nurse Practitioner Family; PCP Internal Medicine; Visit Provider Internal Medicine Medical Oncology
DX: Z51.12 Encounter for antineoplastic immunotherapy (principal); C15.5 Malignant neoplasm of lower third of esophagus; Z79.899 Other long term (current) drug therapy; F17.210 Nicotine dependence, cigarettes, uncomplicated; R53.83 Other fatigue
CPT/HCPCS: 80053; 85025; 96413; 99215; J1642; J7050; Q5112

== ENCOUNTER 2023-08-29 07:30 | Oncology outpatient (recurring) (ONCR) | payer MEDICARE, BC, SELFPAY ==
[2023-08-07 07:41] VITALS: BP 143/73; PULSE 74; RESP 16; TEMP 36.3; O2SAT 96
[2023-08-07 07:59] LABS: Basophils % 0.5 %; Eosinophils # 0.1 10^3/uL (0.0-0.8); Eosinophils % 1.4 %; Hematocrit 40.2 % (37-53); Lymphocytes # 1.3 10^3/uL (0.8-4.8); Lymphocytes % 15.6 %; Mean Corpuscular HGB Conc 31.8 g/dL (30-55); Mean Corpuscular Hemoglobin 27.9 pg (27-33); Mean Corpuscular Volume 87.8 fl (82-101); Mean Platelet Volume 10.1 fL (7.4-10.4); Monocytes # 0.8 10^3/uL (0.2-0.9); Monocytes % 9.2 %; Neutrophils # 6.15 10^3/uL (1.8-7.7); Neutrophils % 73.1 %; Nucleated Red Blood Cells % 0 %; Platelet Count 192 10^3/cmm (157-399); Red Blood Count 4.58 10^6/uL (3.85-5.65); Red Cell Distribution Width 14.7 % (12.1-15.1); White Blood Count 8.41 10^3/uL (3.29-11.43)
[2023-08-07 08:18] LABS: Alanine Aminotransferase 14 U/L (0-41); Alkaline Phosphatase 103 U/L (40-130); Anion Gap 11.1 (5-19); Aspartate Amino Transferase 15 U/L (0-40); Blood Urea Nitrogen 7 mg/dL (6-20); Calcium 8.9 mg/dL (8.5-10.5); Carbon Dioxide 26 mmol/L (22-29); Chloride 103 mmol/L (98-107); Glomerular Filtration Rate 139.9 mL/min (90-130); Glucose 356 mg/dL (65-115); Osmolality Calculated 294 mOsm/kg (285-295); Potassium 4.1 mmol/L (3.5-5.1); Sodium 136 mmol/L (136-145); Total Bilirubin 0.2 mg/dL (0.15-1.2)
[2023-08-07] MEDS: sodium chloride 0.9% 250 ML 75 ML IV (09:27)
[2023-08-07] MEDS: acetaminophen 325 mg Tablet 650 MG PO (09:28)
[2023-08-07] MEDS: loratadine 10 mg Tablet PO (09:28)
[2023-08-29 07:33] VITALS: BP 141/84; PULSE 73; RESP 16; TEMP 36.4; O2SAT 95
[2023-08-29 07:48] LABS: Basophils # 0.1 10^3/uL (0.0-0.1); Basophils % 0.3 %; Eosinophils # 0.1 10^3/uL (0.0-0.8); Eosinophils % 0.7 %; Hematocrit 42.6 % (37-53); Lymphocytes # 1.6 10^3/uL (0.8-4.8); Lymphocytes % 9.4 %; Mean Corpuscular HGB Conc 33.1 g/dL (30-55); Mean Corpuscular Hemoglobin 28.4 pg (27-33); Mean Corpuscular Volume 85.9 fl (82-101); Mean Platelet Volume 9.9 fL (7.4-10.4); Monocytes # 1.6 10^3/uL (0.2-0.9); Monocytes % 9.8 %; Neutrophils # 13.11 10^3/uL (1.8-7.7); Neutrophils % 79.1 %; Nucleated Red Blood Cells % 0 %; Platelet Count 219 10^3/cmm (157-399); Red Blood Count 4.96 10^6/uL (3.85-5.65); Red Cell Distribution Width 15.2 % (12.1-15.1); White Blood Count 16.57 10^3/uL (3.29-11.43)
[2023-08-29 08:05] LABS: Alanine Aminotransferase 15 U/L (0-41); Albumin Level 4.3 g/dL (3.5-5.2); Alkaline Phosphatase 96 U/L (40-130); Anion Gap 12.7 (5-19); Aspartate Amino Transferase 13 U/L (0-40); Blood Urea Nitrogen 11 mg/dL (6-20); Calcium 9.4 mg/dL (8.5-10.5); Carbon Dioxide 29 mmol/L (22-29); Chloride 99 mmol/L (98-107); Globulin 2.3 g/dL (1.3-4.6); Glomerular Filtration Rate 117.1 mL/min (90-130); Glucose 148 mg/dL (65-115); Osmolality Calculated 286 mOsm/kg (285-295); Potassium 3.7 mmol/L (3.5-5.1); Sodium 137 mmol/L (136-145); Total Bilirubin 0.9 mg/dL (0.15-1.2); Total Protein 6.6 g/dL (6.6-8.7)
[2023-08-29 09:24] VITALS: RESP 16; O2SAT 97
[2023-08-29] MEDS: oxyCODONE-APAP 10-325 mg Tablet 1 TAB PO (09:24)
[2023-08-29] MEDS: loratadine 10 mg Tablet PO (09:24)
[2023-08-29] MEDS: sodium chloride 0.9% 250 ML 75 ML IV (09:25)
[2023-08-29 10:50] VITALS: BP 135/75; PULSE 68; RESP 17; TEMP 36.6; O2SAT 97
== END 2023-08-29 23:59 | disposition home or self-care (01) ==
PROVIDERS: Internal Medicine; Nurse Practitioner Family; PCP Internal Medicine; Visit Provider Internal Medicine Medical Oncology
DX: Z51.12 Encounter for antineoplastic immunotherapy; C15.5 Malignant neoplasm of lower third of esophagus; Z79.899 Other long term (current) drug therapy; F17.210 Nicotine dependence, cigarettes, uncomplicated; R53.83 Other fatigue; Z53.9 Procedure and treatment not carried out, unspecified reason
CPT/HCPCS: 80053; 85025; 96413; 99214; 99215; J1642; J7050; Q5112

== ENCOUNTER 2023-09-12 21:23 | Emergency (ER) | payer MEDICARE, BC, SELFPAY ==
[2023-09-12 21:25] VITALS: BP 167/88; PULSE 73; RESP 16; TEMP 36.8; O2SAT 92; BMI 29.9
--- NOTE | 2023-09-12 22:27 | CTR_ITS ---
PROCEDURE INFORMATION: Exam: CTA Chest With Contrast Exam date and time: 09/12/2023 11:09 PM Age: 57 years old Clinical indication: Dyspnea; Additional info: Dyspnea/hemoptysis TECHNIQUE: Imaging protocol: Computed tomographic angiography of the chest with contrast. Exam focused on the arteries. 3D rendering (Not supervised by radiologist): MIP and/or 3D reconstructed images were created by the technologist. Radiation optimization: All CT scans at this facility use at least one of these dose optimization techniques: automated exposure control; mA and/or kV adjustment per patient size (includes targeted exams where dose is matched to clinical indication); or iterative reconstruction. Contrast material: OMNI 350; Contrast volume: 70 ml; Contrast route: INTRAVENOUS (IV); COMPARISON: CT chest w con* [id number] 05/29/2023 12:30 PM RADIATION DOSE METRICS: Total DLP (mGy-cm): 613.01 FINDINGS: Tubes, catheters and devices: Left chest wall port a catheter with tip near the superior cavoatrial junction. Pulmonary arteries: No large central pulmonary embolism. Aorta: Unremarkable. No aortic aneurysm. No aortic dissection. Lungs: Mild mass effect on the trachea secondary to superior mediastinal mass. Contiguous tracheal wall thickening with mediastinal. Bronchial wall thickening. New right apical paramediastinal ground-glass and consolidative opacities.. Increased size of the right lower lobe subpleural 8 mm nodule on series 6, image 329, previously measuring 6 mm. Increased size of a basal left lower lobe nodule along the pleura measuring 1.8 cm previously measuring 1.4 cm on 09/13/2022 exam. Pleural spaces: Trace right pleural fluid/thickening. Heart: Mild left-sided cardiac enlargement. Coronary arteries: Minimal coronary artery calcifications. Mediastinal space: Status post esophagectomy with gastric pull-through. Superior mediastinal right paratracheal soft tissue measures 3.2 x 2.3 cm, previously 2.9 x 2.3 cm when using similar measurement technique. Lymph nodes: Stable mildly enlarged partially calcified right lower paratracheal lymph node. Spleen: Calcified granulomas spleen. Kidneys and ureters: Left nephrolithiasis Bones/joints: No acute fracture. Soft tissues: Unremarkable. CT/CT angio chest PE protcl [id number] IMPRESSION: 1. Interval slightly increased size of a right paratracheal soft tissue mass concerning for recurrent disease. 2. New right apical paramediastinal opacities, correlate for history of interval mediastinal radiation therapy. In the absence of interval radiation therapy, findings would be concerning for focus of infection/inflammation. 3. Increased size of right lower lobe 8 mm nodule and left lower lobe 1.8 cm nodular opacity, indeterminate for pulmonary metastatic disease. Recommend attention on follow-up imaging.
--- NOTE | 2023-09-12 22:28 | W.ED.SOB ---
HPI - SOB/Dyspnea General: Chief Complaint: Upper Respiratory Infection Stated Complaint: couching up blood Time Seen by Provider: 09/12/23 22:15 History of Present Illness: HPI Narrative: 57-year-old male presents emergency department with complaints that he is coughing up blood. 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 He states he is seen by oncology but does not receive chemotherapy although he states he does have immune modulated therapy that he received. He states that in May 2023 he was coughing up some blood and was provided a bronchoscopy by his land lease information clerk and was found to have a ruptured vessel in his lungs at that time. He states he was advised by his land lease information clerk that anytime he has episodes where he is coughing up blood to immediately come to the emergency department to be evaluated. He denies chest pain dizziness lightheaded feeling. He states that he has had a cough for the previous 2 days. He states he does not feel short of breath at present. Associated symptoms: Reports hemoptysis Review of Systems General: Reports: 10 or more systems reviewed and unremarkable except in HPI and below Resp: Reports: productive cough and hemoptysis [facility] ED PFSH: Medical History Acquired hypothyroidism 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, treated with surgery, chemo and radiation Candidal UTI (urinary tract infection) Chronic sinusitis Cough variant asthma Cystitis cystica Degenerative arthritis Diabetes mellitus Type II, insulin requiring Essential (primary) hypertension Glaucoma Hemoptysis History of diverticulitis History of echocardiogram 04/2023 at with EF 58 % History of iron deficiency anemia Hypertriglyceridemia Hypogonadism Incomplete bladder emptying Malignant neoplasm of lower third of esophagus Stage X - T3(yp), N1(yp), M0, G1 YARED on CPAP Paralysis of right vocal cord Status-post repair Reactive depression Renal calculus, right 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 Josue S/P bronchoscopy (10/2020) Bronchoscopy with palliative resection of tracheal mass History of carpal tunnel release History of total right hip arthroplasty (~07/2019) Port-A-Cath in place (02/24/20) S/P cataract surgery History of esophageal surgery (~10/2018) Mike Rusty esophagectomy H/O: vasectomy S/P ureteral stent placement ESWL History of esophagogastroduodenoscopy (EGD) Hx of colonoscopy Family History Father Heart disease Mother Hypertension Recurrent urinary tract infection Dementia Other Chronic kidney disease (CKD) Diabetes Denies family history of CAD (coronary artery disease) Clotting disorder Hyperlipidemia Psychiatric illness Suicide Anesthesia complication Bleeding disorder Lung disease Cancer Stroke Social History Smoking and tobacco/nicotine status: current every day tobacco/nicotine user smokeless tobacco Smokeless tobacco user: chewing tobacco Smokeless tobacco details: 40 years Alcohol intake: never Substance/Drug Use: never Adopted: No Caregiver/support person: No Lives independently: No Household members: spouse Housing: House Marital status: Current occupational status: disabled Physical Exam Narrative: EXAM NARRATIVE: Constitutional: the patient appears well nourished and of normal development. Vital signs as documented. No acute distress at present. Alert and oriented-to person, place, time and situation. Head, eyes, ears, nose, mouth, throat: Normocephalic, atraumatic. Pupils-equal, round, reactive to light. No scleral icterus. Normal-appearing external ears. Normal appearing nasal turbinates, no drainage. No obvious oral lesions, posterior oropharynx without erythema or exudates. Neck: Supple, trachea is midline, no lymphadenopathy, no jugular venous distension, thyromegaly, or carotid bruits. Carotid upstrokes are brisk bilaterally. Lungs: clear to auscultation to all lung gonzalez. Symmetrical rise and fall of chest, no obvious signs of increased work of breathing at present. Cardiac: Regular rate and rhythm, positive S1, S2. No murmurs, rubs or gallops that I can appreciate Abdomen: Soft, non-tender to palpation, normal active bowel sounds to all quadrants. No palpable masses, no organomegaly and abdominal bruits. Extremities: 2+ pulses in the upper extremities that are equal bilaterally, 2+ pulses in the lower extremities that are equal bilaterally. Non-edematous. Moves all extremities well, sensation to all extremities are noted. Skin: Warm, dry, intact. Course Vital Signs: Vital signs: Vital Signs Temperature 98.2 F 09/12/23 21:25 Pulse Rate 66 09/13/23 01:02 Respiratory Rate 16 09/12/23 21:25 Blood Pressure 172/90 09/13/23 01:02 Pulse Oximetry 98 09/13/23 01:02 Oxygen Delivery Me thod Room Air 09/13/23 01:02 MDM - SOB/Dyspnea Medical Decision Making Physical exam completed and documented I will obtain laboratory evaluation and a CT chest scan with IV contrast to rule out pulmonary embolism or active pulmonary hemorrhage. I will obtain a CBC and CMP as well as obtain IV access for the patient. Medical Records I reviewed the patient's medical records. Lab Data 09/12/23 20:35 09/12/23 22:35 Labs/Radiology: Radiology Impressions Chest CTA 09/12/23 22:27 IMPRESSION: 1. Interval slightly increased size of a right paratracheal soft tissue mass concerning for recurrent disease. 2. New right apical paramediastinal opacities, correlate for history of interval mediastinal radiation therapy. In the absence of interval radiation therapy, findings would be concerning for focus of infection/inflammation. 3. Increased size of right lower lobe 8 mm nodule and left lower lobe 1.8 cm nodular opacity, indeterminate for pulmonary metastatic disease. Recommend attention on follow-up imaging. Laboratory Results WBC 7.16 10^3/uL (3.29-11.43) 09/12/23 20:35 RBC 4.54 10^6/uL (3.85-5.65) 09/12/23 20:35 Hgb 12.80 g/dL (11.27-16.99) 09/12/23 20:35 Hct 39.0 % (37-53) 09/12/23 20:35 MCV 85.9 fl (82-101) 09/12/23 20:35 MCH 28.2 pg (27-33) 09/12/23 20:35 MCHC 32.8 g/dL (30-55) 09/12/23 20:35 RDW 14.9 % (12.1-15.1) 09/12/23 20:35 Plt Count 224 10^3/cmm (157-399) 09/12/23 20:35 MPV 9.8 fL (7.4-10.4) 09/12/23 20:35 Neut % (Auto) 61.9 % 09/12/23 20:35 Lymph % (Auto) 26.7 % 09/12/23 20:35 Humphreys % (Auto) 8.2 % 09/12/23 20:35 Eos % (Auto) 2.2 % 09/12/23 20:35 Baso % (Auto) 0.7 % 09/12/23 20:35 Neut # (Auto) 4.43 10^3/uL (1.8-7.7) 09/12/23 20:35 Lymph # (Auto) 1.9 10^3/uL (0.8-4.8) 09/12/23 20:35 Humphreys # (Auto) 0.6 10^3/uL (0.2-0.9) 09/12/23 20:35 Eos # (Auto) 0.2 10^3/uL (0.0-0.8) 09/12/23 20:35 Baso # (Auto) 0.1 10^3/uL (0.0-0.1) 09/12/23 20:35 Nucleated RBC % (auto) 0 % 09/12/23 20:35 Nucleated RBCs # 0.0 /100WBC 09/12/23 20:35 PT 13.60 SECONDS (12.1-14.9) 09/12/23 20:35 INR 1.01 (0.8-1.2) 09/12/23 20:35 APTT 120.2 SECONDS (23.9-36.7) H 09/12/23 20:35 Sodium 140 mmol/L (136-145) 09/12/23 22:35 Potassium 3.6 mmol/L (3.5-5.1) 09/12/23 22:35 Chloride 103 mmol/L (98-107) 09/12/23 22:35 Carbon Dioxide 28 mmol/L (22-29) 09/12/23 22:35 Anion Gap 12.6 (5-19) 09/12/23 22:35 BUN 9 mg/dL (6-20) 09/12/23 22:35 Creatinine 0.7 mg/dL (0.7-1.2) 09/12/23 22:35 GFR Calculation 117.1 mL/min (90-130) 09/12/23 22:35 Glucose 250 mg/dL (65-115) H 09/12/23 22:35 Calculated Osmolality 297 mOsm/kg (285-295) H 09/12/23 22:35 Calcium 9.0 mg/dL (8.5-10.5) 09/12/23 22:35 Total Bilirubin 0.2 mg/dL (0.15-1.2) 09/12/23 22:35 AST 21 U/L (0-40) 09/12/23 22:35 ALT 19 U/L (0-41) 09/12/23 22:35 Alkaline Phosphatase 87 U/L (40-130) 09/12/23 22:35 Total Protein 6.0 g/dL (6.6-8.7) L 09/12/23 22:35 Albumin 3.7 g/dL (3.5-5.2) 09/12/23 22:35 Globulin 2.3 g/dL (1.3-4.6) 09/12/23 22:35 All radiology interpretation(s) finalized by discharge Discharge Plan Discharge Patient Disposition: Home Clinical Impression: Hemoptysis Condition: Stable Prescriptions: No Action pantoprazole 40 mg tablet,delayed release (DR/EC) 40 mg PO BID Qty: 180 3RF citalopram 20 mg tablet 20 mg PO QAM Qty: 90 3RF gabapentin 300 mg capsule 300 mg PO QAM Qty: 90 3RF Bystolic 10 mg tablet 10 mg PO QAM Qty: 90 3RF tamsulosin 0.4 mg capsule 0.4 mg PO BID Qty: 180 3RF cholecalciferol (vitamin D3) 1,250 mcg (50,000 unit) tablet 50,000 unit PO Q7D Rx Instructions: 50,000 units orally weekly; ciprofloxacin HCl 500 mg tablet 500 mg PO BID Qty: 14 0RF metronidazole 500 mg tablet 500 mg PO TID Qty: 21 0RF lorazepam 1 mg tablet 1 mg PO TID PRN (Reason: nausea) Qty: 90 2RF (DME) blood-glucose meter [Accu-Chek Guide Me Glucose Mtr] Misc See Rx Instructions .ROUTE .MEDSUPPLY Qty: 1 0RF Rx Instructions: to check blood sugar as direced lancets [Accu-Chek Fastclix Lancet Drum] Misc See Rx Instructions .ROUTE .COMPLEX Qty: 102 5RF Dose Instruction: USE 1 TO CHECK BLOOD SUGAR 3-4 TIMES DAILY DIRECTED Rx Instructions: USE 1 TO CHECK BLOOD SUGAR 3-4 TIMES DAILY DIRECTED (DME) pen needle, diabetic [Lite Touch Insulin Pen [place]] 31 gauge x 5/16 needle See Rx Instructions .Route Qty: 100 12RF Rx Instructions: As directed (DME) Accu-Chek Guide test strips Strip See Rx Instructions .ROUTE .MEDSUPPLY Qty: 100 5RF Rx Instructions: to test blood sugar as directed 3-4 times daily Humalog KwikPen Insulin 200 unit/mL (3 mL) insulin pen See Rx Instructions .ROUTE .COMPLEX Qty: 18 3RF Rx Instructions: sliding scale subcutaneously prn oxycodone-acetaminophen 10-325 mg tablet 1 tab PO Q6H PRN (Reason: pain) 30 Days Qty: 90 0RF levothyroxine 150 mcg tablet See Rx Instructions .ROUTE .COMPLEX Qty: 90 3RF Dose Instruction: TAKE 1 TABLET DAILY Rx Instructions: TAKE 1 TABLET DAILY timolol maleate 0.5 % drops 1 drp ophthalmic (eye) DAILY Rx Instructions: in left eye dexamethasone sodium phosphate 10 mg/mL Solution 10 mg IV .PREMED BEFORE CHEMO Ogivri 420 mg Recon Soln 840 mg IV .EVERY 3 WEEKS Rx Instructions: prior to pump infusion prochlorperazine maleate 10 mg Tablet 10 mg PO Q6H PRN (Reason: Nausea) glimepiride 4 mg Tablet 4 mg PO BID palonosetron 0.25 mg/5 mL Solution 0.25 mg IV DIRECTED PRN (Reason: premedication before chemo) Lantus Solostar U-100 Insulin 100 unit/mL (3 mL) insulin pen 70 unit SUBCUT BEDTIME Discharge Orders: Discharge ED (Routine); Ordered 09/13/23 Ordered By: Alexsander Monroy Referrals: Luis Luna MD [Primary Care Provider] - Discharge Diet: Advance as tolerated Discharge Activity: Resume usual activity Patient Instructions: Opioid Safety, Pain Management Activity Restrictions/Additional Instructions: Activity Restrictions/Additional Instructions: Thank you for choosing [facility] for your healthcare needs today. Please realize that you were seen in the Emergency Department and that we are providing you with an emergency medical screening exam and this may not be a complete and all inclusive of all the testing and or medical work-up that you may need to determine your ailment or severity of your illness. It is very important that you follow-up as instructed with your Primary care provider or Specialist for additional evaluation and to discuss your medical treatment plan. You may return to the Emergency Department should you have concerns or if your condition changes or worsens in any way. Coding Level of Care Code ED Planting Supervisor for Jessica Ndiaye
[2023-09-12 22:44] LABS: Basophils # 0.1 10^3/uL (0.0-0.1); Basophils % 0.7 %; Eosinophils # 0.2 10^3/uL (0.0-0.8); Eosinophils % 2.2 %; Lymphocytes # 1.9 10^3/uL (0.8-4.8); Lymphocytes % 26.7 %; Mean Corpuscular HGB Conc 32.8 g/dL (30-55); Mean Corpuscular Hemoglobin 28.2 pg (27-33); Mean Corpuscular Volume 85.9 fl (82-101); Mean Platelet Volume 9.8 fL (7.4-10.4); Monocytes # 0.6 10^3/uL (0.2-0.9); Monocytes % 8.2 %; Neutrophils # 4.43 10^3/uL (1.8-7.7); Neutrophils % 61.9 %; Nucleated Red Blood Cells % 0 %; Platelet Count 224 10^3/cmm (157-399); Red Blood Count 4.54 10^6/uL (3.85-5.65); Red Cell Distribution Width 14.9 % (12.1-15.1); White Blood Count 7.16 10^3/uL (3.29-11.43)
[2023-09-12 23:02] LABS: Aspartate Amino Transferase 21 U/L (0-40)
[2023-09-12] MEDS: iohexol 350 mg/mL 500 mL Btl (per mL) IV (23:20)
[2023-09-12 23:23] LABS: INR 1.01 (0.8-1.2)
[2023-09-12 23:32] LABS: Partial Thromboplastin Time 120.2 SECONDS (23.9-36.7)
[2023-09-12 23:43] LABS: Alanine Aminotransferase 19 U/L (0-41); Albumin Level 3.7 g/dL (3.5-5.2); Alkaline Phosphatase 87 U/L (40-130); Blood Urea Nitrogen 9 mg/dL (6-20); Carbon Dioxide 28 mmol/L (22-29); Chloride 103 mmol/L (98-107); Globulin 2.3 g/dL (1.3-4.6); Glomerular Filtration Rate 117.1 mL/min (90-130); Glucose 250 mg/dL (65-115); Osmolality Calculated 297 mOsm/kg (285-295); Sodium 140 mmol/L (136-145); Total Bilirubin 0.2 mg/dL (0.15-1.2)
[2023-09-12 23:46] LABS: Anion Gap 12.6 (5-19); Potassium 3.6 mmol/L (3.5-5.1)
[2023-09-13 01:02] VITALS: BP 172/90; PULSE 66; O2SAT 98
--- NOTE | 2023-09-13 01:18 | PC.NURSE ---
PORT THAT HAD BEEN ACCESSED BY KIRSTIN MARTINI WAS DE-ACCESSED BY KIRSTIN ORTEGA AT THIS TIME.
[2023-09-13 01:19] VITALS: BP 172/90; PULSE 56; O2SAT 96
== END 2023-09-13 01:21 | disposition home or self-care (01) ==
PROVIDERS: Emergency Provider Internal Medicine; PCP Internal Medicine
DX: R04.2 Hemoptysis (principal); Z79.84 Long term (current) use of oral hypoglycemic drugs; Z79.4 Long term (current) use of insulin; Z85.01 Personal history of malignant neoplasm of esophagus; Z92.21 Personal history of antineoplastic chemotherapy; Z92.3 Personal history of irradiation; E11.9 Type 2 diabetes mellitus without complications; I10 Essential (primary) hypertension; Z85.12 Personal history of malignant neoplasm of trachea
CPT/HCPCS: 71275; 80053; 85025; 85610; 85730; 96374; 99285; J1642; Q9967

== ENCOUNTER 2023-09-19 07:37 | Oncology outpatient (recurring) (ONCR) | payer MEDICARE, BC, SELFPAY ==
[2023-09-19 08:09] VITALS: BP 141/85; PULSE 68; RESP 18; TEMP 36.6; O2SAT 96
[2023-09-19 08:13] LABS: Basophils # 0.1 10^3/uL (0.0-0.1); Basophils % 1.2 %; Eosinophils # 0.1 10^3/uL (0.0-0.8); Eosinophils % 2.3 %; Hematocrit 41.5 % (37-53); Lymphocytes # 1.7 10^3/uL (0.8-4.8); Lymphocytes % 27.6 %; Mean Corpuscular HGB Conc 34.2 g/dL (30-55); Mean Corpuscular Hemoglobin 29.1 pg (27-33); Mean Platelet Volume 9.9 fL (7.4-10.4); Monocytes # 0.7 10^3/uL (0.2-0.9); Monocytes % 11.1 %; Neutrophils # 3.43 10^3/uL (1.8-7.7); Neutrophils % 57.1 %; Nucleated Red Blood Cells % 0 %; Platelet Count 224 10^3/cmm (157-399); Red Blood Count 4.88 10^6/uL (3.85-5.65); White Blood Count 6.01 10^3/uL (3.29-11.43)
[2023-09-19] MEDS: loratadine 10 mg Tablet PO (11:05)
[2023-09-19] MEDS: acetaminophen 325 mg Tablet 650 MG PO (11:05)
[2023-09-19] MEDS: sodium chloride 0.9% 250 ML 75 ML IV (11:05)
[2023-09-19 11:19] LABS: Alanine Aminotransferase 21 U/L (0-41); Alkaline Phosphatase 108 U/L (40-130); Aspartate Amino Transferase 19 U/L (0-40); Blood Urea Nitrogen 8 mg/dL (6-20); Calcium 9.3 mg/dL (8.5-10.5); Carbon Dioxide 28 mmol/L (22-29); Chloride 105 mmol/L (98-107); Glomerular Filtration Rate 139.9 mL/min (90-130); Glucose 128 mg/dL (65-115); Osmolality Calculated 292 mOsm/kg (285-295); Sodium 141 mmol/L (136-145); Total Bilirubin 0.2 mg/dL (0.15-1.2)
[2023-09-19 11:22] LABS: Anion Gap 11.8 (5-19); Potassium 3.8 mmol/L (3.5-5.1)
[2023-09-19 12:14] VITALS: BP 152/83; PULSE 67; O2SAT 94
== END 2023-10-04 23:59 | disposition home or self-care (01) ==
PROVIDERS: Nurse Practitioner Family; PCP Internal Medicine; Visit Provider Internal Medicine Medical Oncology
DX: C15.5 Malignant neoplasm of lower third of esophagus; Z51.11 Encounter for antineoplastic chemotherapy
CPT/HCPCS: 36415; 80053; 85025; 96413; J1642; J7050; Q5112

== ENCOUNTER 2023-10-31 07:30 | Oncology outpatient (recurring) (ONCR) | payer MEDICARE, BC, SELFPAY ==
[2023-10-10 08:01] VITALS: BP 155/80; PULSE 57; RESP 16; TEMP 36.1; O2SAT 96
[2023-10-10 08:06] LABS: Basophils % 0.7 %; Eosinophils # 0.1 10^3/uL (0.0-0.8); Eosinophils % 2.2 %; Hematocrit 41.6 % (37-53); Lymphocytes # 1.5 10^3/uL (0.8-4.8); Lymphocytes % 27.7 %; Mean Corpuscular HGB Conc 32.2 g/dL (30-55); Mean Corpuscular Hemoglobin 27.7 pg (27-33); Mean Platelet Volume 9.6 fL (7.4-10.4); Monocytes # 0.6 10^3/uL (0.2-0.9); Monocytes % 11.5 %; Neutrophils % 57.3 %; Nucleated Red Blood Cells % 0 %; Platelet Count 215 10^3/cmm (157-399); Red Blood Count 4.84 10^6/uL (3.85-5.65); Red Cell Distribution Width 15.3 % (12.1-15.1); White Blood Count 5.41 10^3/uL (3.29-11.43)
[2023-10-10 08:35] LABS: Alanine Aminotransferase 19 U/L (0-41); Albumin Level 4.1 g/dL (3.5-5.2); Alkaline Phosphatase 96 U/L (40-130); Anion Gap 13.9 (5-19); Aspartate Amino Transferase 19 U/L (0-40); Blood Urea Nitrogen 10 mg/dL (6-20); Carbon Dioxide 26 mmol/L (22-29); Chloride 102 mmol/L (98-107); Creatinine Clr Calc Pharmacy 161.7941; Globulin 2.4 g/dL (1.3-4.6); Glomerular Filtration Rate 117.1 mL/min (90-130); Glucose 207 mg/dL (65-115); Osmolality Calculated 291 mOsm/kg (285-295); Potassium 3.9 mmol/L (3.5-5.1); Sodium 138 mmol/L (136-145); Total Bilirubin 0.3 mg/dL (0.15-1.2); Total Protein 6.5 g/dL (6.6-8.7)
[2023-10-10] MEDS: acetaminophen 325 mg Tablet 650 MG PO (10:41)
[2023-10-10] MEDS: loratadine 10 mg Tablet PO (10:41)
[2023-10-10] MEDS: sodium chloride 0.9% 250 ML 75 ML IV (10:43)
[2023-10-10] MEDS: TRASTUZUMAB DTTB IV (11:30)
[2023-10-10] MEDS: SODIUM CHLORIDE 0.9% IV (11:30)
[2023-10-10 12:32] VITALS: BP 153/84; PULSE 57; RESP 16; TEMP 36.3; O2SAT 96
[2023-10-31 07:47] LABS: Basophils % 0.6 %; Eosinophils # 0.2 10^3/uL (0.0-0.8); Eosinophils % 2.4 %; Hematocrit 40.5 % (37-53); Lymphocytes # 1.4 10^3/uL (0.8-4.8); Lymphocytes % 21.5 %; Mean Corpuscular HGB Conc 33.1 g/dL (30-55); Mean Corpuscular Volume 84.6 fl (82-101); Mean Platelet Volume 9.8 fL (7.4-10.4); Monocytes # 0.7 10^3/uL (0.2-0.9); Monocytes % 10.8 %; Neutrophils # 4.04 10^3/uL (1.8-7.7); Neutrophils % 64.4 %; Nucleated Red Blood Cells % 0 %; Platelet Count 235 10^3/cmm (157-399); Red Blood Count 4.79 10^6/uL (3.85-5.65); Red Cell Distribution Width 15.1 % (12.1-15.1); White Blood Count 6.28 10^3/uL (3.29-11.43)
[2023-10-31 08:06] LABS: Alanine Aminotransferase 19 U/L (0-41); Albumin Level 3.9 g/dL (3.5-5.2); Alkaline Phosphatase 110 U/L (40-130); Blood Urea Nitrogen 14 mg/dL (6-20); Calcium 8.6 mg/dL (8.5-10.5); Carbon Dioxide 28 mmol/L (22-29); Chloride 102 mmol/L (98-107); Creatinine Clr Calc Pharmacy 161.7941; Globulin 2.5 g/dL (1.3-4.6); Glomerular Filtration Rate 117.1 mL/min (90-130); Glucose 116 mg/dL (65-115); Osmolality Calculated 291 mOsm/kg (285-295); Sodium 140 mmol/L (136-145); Total Bilirubin 0.3 mg/dL (0.15-1.2); Total Protein 6.4 g/dL (6.6-8.7)
[2023-10-31 08:12] LABS: Anion Gap 13.8 (5-19); Aspartate Amino Transferase 21 U/L (0-40); Potassium 3.8 mmol/L (3.5-5.1)
[2023-10-31] MEDS: acetaminophen 325 mg Tablet 650 MG PO (09:09)
[2023-10-31] MEDS: loratadine 10 mg Tablet PO (09:09)
[2023-10-31] MEDS: sodium chloride 0.9% 250 ML 75 ML IV (09:10)
[2023-10-31] MEDS: SODIUM CHLORIDE 0.9% IV (09:32)
[2023-10-31] MEDS: TRASTUZUMAB DTTB IV (09:32)
[2023-10-31 10:31] VITALS: BP 142/88; PULSE 56; RESP 18; TEMP 36.8; O2SAT 96
== END 2023-10-31 23:59 | disposition home or self-care (01) ==
PROVIDERS: Internal Medicine; Nurse Practitioner Family; PCP Internal Medicine; Visit Provider Internal Medicine Medical Oncology
DX: C15.5 Malignant neoplasm of lower third of esophagus (principal); Z51.12 Encounter for antineoplastic immunotherapy; Z79.899 Other long term (current) drug therapy; Z87.19 Personal history of other diseases of the digestive system; Z53.9 Procedure and treatment not carried out, unspecified reason
CPT/HCPCS: 80053; 85025; 96413; 99214; J1642; J7050; Q5112

== ENCOUNTER 2023-11-21 08:16 | Oncology outpatient (recurring) (ONCR) | payer MEDICARE, BC, SELFPAY ==
[2023-11-21 08:29] VITALS: BP 152/93; PULSE 67; RESP 18; TEMP 36.6; O2SAT 96
[2023-11-21 08:59] LABS: Basophils % 0.7 %; Eosinophils # 0.2 10^3/uL (0.0-0.8); Eosinophils % 3.3 %; Hematocrit 39.8 % (37-53); Lymphocytes # 1.4 10^3/uL (0.8-4.8); Lymphocytes % 22.3 %; Mean Corpuscular HGB Conc 32.9 g/dL (30-55); Mean Corpuscular Hemoglobin 27.8 pg (27-33); Mean Corpuscular Volume 84.5 fl (82-101); Mean Platelet Volume 9.6 fL (7.4-10.4); Monocytes # 0.7 10^3/uL (0.2-0.9); Monocytes % 10.6 %; Neutrophils # 3.85 10^3/uL (1.8-7.7); Neutrophils % 62.9 %; Nucleated Red Blood Cells % 0 %; Platelet Count 199 10^3/cmm (157-399); Red Blood Count 4.71 10^6/uL (3.85-5.65); White Blood Count 6.11 10^3/uL (3.29-11.43)
[2023-11-21 09:18] LABS: Alanine Aminotransferase 18 U/L (0-41); Albumin Level 4.1 g/dL (3.5-5.2); Alkaline Phosphatase 110 U/L (40-130); Anion Gap 12.7 (5-19); Aspartate Amino Transferase 18 U/L (0-40); Blood Urea Nitrogen 8 mg/dL (6-20); Calcium 8.4 mg/dL (8.5-10.5); Carbon Dioxide 28 mmol/L (22-29); Chloride 101 mmol/L (98-107); Creatinine Clr Calc Pharmacy 188.5458; Glomerular Filtration Rate 139.4 mL/min (90-130); Glucose 191 mg/dL (65-115); Osmolality Calculated 289 mOsm/kg (285-295); Potassium 3.7 mmol/L (3.5-5.1); Sodium 138 mmol/L (136-145); Total Bilirubin 0.3 mg/dL (0.15-1.2); Total Protein 6.1 g/dL (6.6-8.7)
[2023-11-21] MEDS: sodium chloride 0.9% 250 ML 75 ML IV (10:02)
[2023-11-21] MEDS: acetaminophen 325 mg Tablet 650 MG PO (10:02)
[2023-11-21] MEDS: loratadine 10 mg Tablet PO (10:03)
[2023-11-21] MEDS: TRASTUZUMAB DTTB IV (10:36)
[2023-11-21] MEDS: SODIUM CHLORIDE 0.9% IV (10:36)
== END 2023-12-03 23:59 | disposition home or self-care (01) ==
LOC: ONCMED 08:16
PROVIDERS: Nurse Practitioner Family; PCP Internal Medicine; Visit Provider Internal Medicine Medical Oncology
DX: C15.5 Malignant neoplasm of lower third of esophagus (principal); Z51.11 Encounter for antineoplastic chemotherapy
CPT/HCPCS: 80053; 85025; 96413; J1642; J7050; Q5112

== ENCOUNTER 2023-12-18 08:56 | Oncology outpatient (recurring) (ONCR) | payer MEDICARE, BC, SELFPAY ==
[2023-12-18 09:27] LABS: Basophils # 0.1 10^3/uL (0.0-0.1); Basophils % 0.7 %; Eosinophils # 0.1 10^3/uL (0.0-0.8); Eosinophils % 1.6 %; Lymphocytes # 1.5 10^3/uL (0.8-4.8); Lymphocytes % 22.1 %; Mean Corpuscular HGB Conc 32.1 g/dL (30-55); Mean Corpuscular Hemoglobin 27.7 pg (27-33); Mean Corpuscular Volume 86.1 fl (82-101); Mean Platelet Volume 10.4 fL (7.4-10.4); Monocytes # 0.7 10^3/uL (0.2-0.9); Monocytes % 10.2 %; Neutrophils # 4.35 10^3/uL (1.8-7.7); Neutrophils % 65.1 %; Nucleated Red Blood Cells % 0 %; Platelet Count 223 10^3/cmm (157-399); Red Blood Count 4.88 10^6/uL (3.85-5.65); Red Cell Distribution Width 15.2 % (12.1-15.1); White Blood Count 6.69 10^3/uL (3.29-11.43)
[2023-12-18 09:41] LABS: Alanine Aminotransferase 21 U/L (0-41); Albumin Level 4.1 g/dL (3.5-5.2); Alkaline Phosphatase 118 U/L (40-130); Anion Gap 10.1 (5-19); Aspartate Amino Transferase 19 U/L (0-40); Blood Urea Nitrogen 12 mg/dL (6-20); Calcium 8.7 mg/dL (8.5-10.5); Carbon Dioxide 28 mmol/L (22-29); Chloride 104 mmol/L (98-107); Globulin 2.4 g/dL (1.3-4.6); Glomerular Filtration Rate 139.4 mL/min (90-130); Glucose 206 mg/dL (65-115); Osmolality Calculated 292 mOsm/kg (285-295); Potassium 4.1 mmol/L (3.5-5.1); Sodium 138 mmol/L (136-145); Total Bilirubin 0.4 mg/dL (0.15-1.2); Total Protein 6.5 g/dL (6.6-8.7)
[2023-12-18] MEDS: sodium chloride 0.9% 250 ML 75 ML IV (11:30)
[2023-12-18] MEDS: acetaminophen 325 mg Tablet 650 MG PO (11:31)
[2023-12-18] MEDS: loratadine 10 mg Tablet PO (11:31)
[2023-12-18] MEDS: TRASTUZUMAB DTTB IV (12:05)
[2023-12-18] MEDS: SODIUM CHLORIDE 0.9% IV (12:05)
== END 2024-01-02 23:59 | disposition home or self-care (01) ==
PROVIDERS: Nurse Practitioner Family; PCP Internal Medicine; Visit Provider Internal Medicine Medical Oncology
DX: C15.5 Malignant neoplasm of lower third of esophagus; Z87.19 Personal history of other diseases of the digestive system; Z51.12 Encounter for antineoplastic immunotherapy
CPT/HCPCS: 80053; 85025; 96413; 99214; J7050; Q5112

== ENCOUNTER 2024-01-30 07:30 | Oncology outpatient (recurring) (ONCR) | payer MEDICARE, BC, SELFPAY ==
[2024-01-08 07:57] LABS: Basophils % 0.6 %; Eosinophils # 0.2 10^3/uL (0.0-0.8); Eosinophils % 2.8 %; Hematocrit 38.7 % (37-53); Lymphocytes # 1.7 10^3/uL (0.8-4.8); Lymphocytes % 25.8 %; Mean Corpuscular HGB Conc 32.6 g/dL (30-55); Mean Corpuscular Hemoglobin 27.3 pg (27-33); Mean Corpuscular Volume 83.9 fl (82-101); Mean Platelet Volume 10.3 fL (7.4-10.4); Monocytes # 0.6 10^3/uL (0.2-0.9); Monocytes % 9.8 %; Neutrophils # 3.93 10^3/uL (1.8-7.7); Neutrophils % 60.5 %; Nucleated Red Blood Cells % 0 %; Platelet Count 215 10^3/cmm (157-399); Red Blood Count 4.61 10^6/uL (3.85-5.65)
[2024-01-08 08:27] LABS: Alanine Aminotransferase 18 U/L (0-41); Albumin Level 3.7 g/dL (3.5-5.2); Alkaline Phosphatase 105 U/L (40-130); Anion Gap 13.4 (5-19); Aspartate Amino Transferase 16 U/L (0-40); Blood Urea Nitrogen 9 mg/dL (6-20); Calcium 8.4 mg/dL (8.5-10.5); Carbon Dioxide 28 mmol/L (22-29); Chloride 102 mmol/L (98-107); Globulin 2.5 g/dL (1.3-4.6); Glomerular Filtration Rate 116.7 mL/min (90-130); Glucose 263 mg/dL (65-115); Osmolality Calculated 298 mOsm/kg (285-295); Potassium 3.4 mmol/L (3.5-5.1); Sodium 140 mmol/L (136-145); Total Bilirubin 0.2 mg/dL (0.15-1.2); Total Protein 6.2 g/dL (6.6-8.7)
[2024-01-08] MEDS: loratadine 10 mg Tablet PO (09:07)
[2024-01-08] MEDS: acetaminophen 325 mg Tablet 650 MG PO (09:07)
[2024-01-08] MEDS: sodium chloride 0.9% 250 ML 75 ML IV (09:07)
[2024-01-08] MEDS: TRASTUZUMAB DTTB IV (09:39)
[2024-01-08] MEDS: SODIUM CHLORIDE 0.9% IV (09:39)
[2024-01-08 10:29] VITALS: BP 164/91; PULSE 67; RESP 18; TEMP 36.3; O2SAT 97
[2024-01-30 07:57] LABS: Basophils # 0.1 10^3/uL (0.0-0.1); Basophils % 0.7 %; Eosinophils # 0.2 10^3/uL (0.0-0.8); Eosinophils % 2.6 %; Hematocrit 41.4 % (37-53); Lymphocytes # 1.9 10^3/uL (0.8-4.8); Lymphocytes % 24.8 %; Mean Corpuscular HGB Conc 32.1 g/dL (30-55); Mean Corpuscular Hemoglobin 27.3 pg (27-33); Mean Corpuscular Volume 84.8 fl (82-101); Monocytes # 0.8 10^3/uL (0.2-0.9); Monocytes % 10.9 %; Neutrophils # 4.66 10^3/uL (1.8-7.7); Neutrophils % 60.6 %; Nucleated Red Blood Cells % 0 %; Platelet Count 230 10^3/cmm (157-399); Red Blood Count 4.88 10^6/uL (3.85-5.65); Red Cell Distribution Width 15.4 % (12.1-15.1); White Blood Count 7.69 10^3/uL (3.29-11.43)
[2024-01-30 08:19] LABS: Alanine Aminotransferase 25 U/L (0-41); Albumin Level 3.8 g/dL (3.5-5.2); Alkaline Phosphatase 101 U/L (40-130); Aspartate Amino Transferase 21 U/L (0-40); Blood Urea Nitrogen 9 mg/dL (6-20); Calcium 8.8 mg/dL (8.5-10.5); Carbon Dioxide 28 mmol/L (22-29); Chloride 101 mmol/L (98-107); Globulin 2.5 g/dL (1.3-4.6); Glomerular Filtration Rate 116.7 mL/min (90-130); Glucose 171 mg/dL (65-115); Osmolality Calculated 287 mOsm/kg (285-295); Sodium 137 mmol/L (136-145); Total Bilirubin 0.3 mg/dL (0.15-1.2); Total Protein 6.3 g/dL (6.6-8.7)
[2024-01-30] MEDS: acetaminophen 325 mg Tablet 650 MG PO (10:22)
[2024-01-30] MEDS: sodium chloride 0.9% 250 ML 75 ML IV (10:23)
[2024-01-30] MEDS: loratadine 10 mg Tablet PO (10:23)
[2024-01-30] MEDS: TRASTUZUMAB DTTB IV (10:34)
[2024-01-30] MEDS: SODIUM CHLORIDE 0.9% IV (10:34)
[2024-01-30 11:16] VITALS: BP 155/89; PULSE 54; RESP 18; TEMP 36.6; O2SAT 94
== END 2024-01-30 23:59 | disposition home or self-care (01) ==
PROVIDERS: Nurse Practitioner Family; PCP Internal Medicine; Visit Provider Internal Medicine Medical Oncology
DX: C15.5 Malignant neoplasm of lower third of esophagus (principal); Z51.12 Encounter for antineoplastic immunotherapy; Z87.19 Personal history of other diseases of the digestive system
CPT/HCPCS: 80053; 85025; 96413; 99214; J7050; Q5112

== ENCOUNTER 2024-02-20 07:29 | Oncology outpatient (recurring) (ONCR) | payer MEDICARE, BC, SELFPAY ==
[2024-02-20 08:01] LABS: Basophils % 0.6 %; Eosinophils # 0.2 10^3/uL (0.0-0.8); Eosinophils % 3.3 %; Hematocrit 39.9 % (37-53); Lymphocytes # 1.7 10^3/uL (0.8-4.8); Lymphocytes % 26.1 %; Mean Corpuscular HGB Conc 32.3 g/dL (30-55); Mean Corpuscular Hemoglobin 27.4 pg (27-33); Mean Corpuscular Volume 84.7 fl (82-101); Mean Platelet Volume 9.7 fL (7.4-10.4); Monocytes # 0.6 10^3/uL (0.2-0.9); Monocytes % 9.2 %; Neutrophils # 3.99 10^3/uL (1.8-7.7); Neutrophils % 60.5 %; Nucleated Red Blood Cells % 0 %; Platelet Count 203 10^3/cmm (157-399); Red Blood Count 4.71 10^6/uL (3.85-5.65); Red Cell Distribution Width 15.6 % (12.1-15.1)
[2024-02-20 08:15] LABS: Alanine Aminotransferase 18 U/L (0-41); Albumin Level 3.9 g/dL (3.5-5.2); Alkaline Phosphatase 97 U/L (40-130); Anion Gap 14.6 (5-19); Aspartate Amino Transferase 21 U/L (0-40); Blood Urea Nitrogen 9 mg/dL (6-20); Calcium 8.6 mg/dL (8.5-10.5); Carbon Dioxide 27 mmol/L (22-29); Chloride 100 mmol/L (98-107); Globulin 2.4 g/dL (1.3-4.6); Glomerular Filtration Rate 116.7 mL/min (90-130); Glucose 228 mg/dL (65-115); Osmolality Calculated 292 mOsm/kg (285-295); Potassium 3.6 mmol/L (3.5-5.1); Sodium 138 mmol/L (136-145); Total Bilirubin 0.3 mg/dL (0.15-1.2); Total Protein 6.3 g/dL (6.6-8.7)
[2024-02-20] MEDS: loratadine 10 mg Tablet PO (09:04)
[2024-02-20] MEDS: acetaminophen 325 mg Tablet 650 MG PO (09:04)
[2024-02-20] MEDS: sodium chloride 0.9% 250 ML 75 ML IV (09:05)
[2024-02-20] MEDS: TRASTUZUMAB DTTB IV (09:31)
[2024-02-20] MEDS: SODIUM CHLORIDE 0.9% IV (09:31)
== END 2024-03-03 23:59 | disposition home or self-care (01) ==
PROVIDERS: Nurse Practitioner Family; PCP Internal Medicine; Visit Provider Internal Medicine Medical Oncology
DX: C15.5 Malignant neoplasm of lower third of esophagus (principal); Z51.11 Encounter for antineoplastic chemotherapy
CPT/HCPCS: 80053; 85025; 96413; J7050; Q5112

== ENCOUNTER 2024-04-02 08:01 | Oncology outpatient (recurring) (ONCR) | payer MEDICARE, BC, SELFPAY ==
[2024-03-05] MEDS: sodium chloride 0.9% 250 ML 75 ML IV (08:15)
[2024-03-05 08:16] VITALS: BP 132/78; PULSE 74; RESP 17; TEMP 36.6; O2SAT 95
[2024-03-05] MEDS: ferric carboxy (PYXIS) 750 MG in sodium chloride 0.9% (100 ml) 100 ML 345 MG IV (08:17)
[2024-03-05 09:00] VITALS: BP 141/88; PULSE 56; RESP 16; O2SAT 96
[2024-03-12 07:58] LABS: Basophils # 0.1 10^3/uL (0.0-0.1); Basophils % 0.5 %; Eosinophils # 0.2 10^3/uL (0.0-0.8); Eosinophils % 2.1 %; Hematocrit 43.9 % (37-53); Lymphocytes # 2.4 10^3/uL (0.8-4.8); Lymphocytes % 25.7 %; Mean Corpuscular HGB Conc 32.6 g/dL (30-55); Mean Corpuscular Hemoglobin 28.1 pg (27-33); Mean Corpuscular Volume 86.2 fl (82-101); Mean Platelet Volume 9.6 fL (7.4-10.4); Monocytes # 0.8 10^3/uL (0.2-0.9); Monocytes % 8.8 %; Neutrophils # 5.67 10^3/uL (1.8-7.7); Neutrophils % 62.1 %; Nucleated Red Blood Cells % 0 %; Platelet Count 217 10^3/cmm (157-399); Red Blood Count 5.09 10^6/uL (3.85-5.65); Red Cell Distribution Width 16.7 % (12.1-15.1); White Blood Count 9.13 10^3/uL (3.29-11.43)
[2024-03-12 08:15] LABS: Alanine Aminotransferase 30 U/L (0-41); Albumin Level 4.2 g/dL (3.5-5.2); Alkaline Phosphatase 112 U/L (40-130); Aspartate Amino Transferase 25 U/L (0-40); Blood Urea Nitrogen 12 mg/dL (6-20); Calcium 9.1 mg/dL (8.5-10.5); Carbon Dioxide 28 mmol/L (22-29); Chloride 102 mmol/L (98-107); Globulin 2.5 g/dL (1.3-4.6); Glomerular Filtration Rate 139.4 mL/min (90-130); Glucose 109 mg/dL (65-115); Osmolality Calculated 292 mOsm/kg (285-295); Sodium 141 mmol/L (136-145); Total Bilirubin 0.3 mg/dL (0.15-1.2); Total Protein 6.7 g/dL (6.6-8.7)
[2024-03-12 08:16] LABS: Anion Gap 14.7 (5-19); Potassium 3.7 mmol/L (3.5-5.1)
[2024-03-12] MEDS: sodium chloride 0.9% 250 ML 75 ML IV (10:01)
[2024-03-12] MEDS: acetaminophen 325 mg Tablet 650 MG PO (10:04)
[2024-03-12] MEDS: loratadine 10 mg Tablet PO (10:04)
[2024-03-12] MEDS: ferric carboxy (PYXIS) 750 MG in sodium chloride 0.9% (100 ml) 100 ML 345 MG IV (10:17)
[2024-03-12] MEDS: SODIUM CHLORIDE 0.9% IV (10:48)
[2024-03-12] MEDS: TRASTUZUMAB DTTB IV (10:48)
[2024-03-12 11:49] VITALS: BP 144/83; PULSE 61; O2SAT 93
[2024-04-02 08:20] LABS: Basophils # 0.1 10^3/uL (0.0-0.1); Basophils % 0.7 %; Eosinophils # 0.2 10^3/uL (0.0-0.8); Eosinophils % 2.6 %; Hematocrit 46.2 % (37-53); Lymphocytes # 1.8 10^3/uL (0.8-4.8); Lymphocytes % 24.2 %; Mean Corpuscular HGB Conc 33.3 g/dL (30-55); Mean Corpuscular Hemoglobin 29.8 pg (27-33); Mean Corpuscular Volume 89.5 fl (82-101); Mean Platelet Volume 9.9 fL (7.4-10.4); Monocytes # 0.7 10^3/uL (0.2-0.9); Neutrophils # 4.59 10^3/uL (1.8-7.7); Neutrophils % 62.1 %; Nucleated Red Blood Cells % 0 %; Platelet Count 184 10^3/cmm (157-399); Red Blood Count 5.16 10^6/uL (3.85-5.65); Red Cell Distribution Width 20.9 % (12.1-15.1); White Blood Count 7.39 10^3/uL (3.29-11.43)
[2024-04-02 08:38] LABS: Alanine Aminotransferase 32 U/L (0-41); Albumin Level 4.1 g/dL (3.5-5.2); Alkaline Phosphatase 103 U/L (40-130); Aspartate Amino Transferase 29 U/L (0-40); Blood Urea Nitrogen 12 mg/dL (6-20); Calcium 7.9 mg/dL (8.5-10.5); Carbon Dioxide 25 mmol/L (22-29); Chloride 106 mmol/L (98-107); Creatinine Clr Calc Pharmacy 186.7444; Globulin 2.4 g/dL (1.3-4.6); Glomerular Filtration Rate 139.4 mL/min (90-130); Glucose 147 mg/dL (65-115); Osmolality Calculated 294 mOsm/kg (285-295); Sodium 141 mmol/L (136-145); Total Bilirubin 0.4 mg/dL (0.15-1.2); Total Protein 6.5 g/dL (6.6-8.7)
[2024-04-02 08:39] LABS: Anion Gap 14.2 (5-19); Potassium 4.2 mmol/L (3.5-5.1)
[2024-04-02] MEDS: acetaminophen 325 mg Tablet 650 MG PO (09:08)
[2024-04-02] MEDS: loratadine 10 mg Tablet PO (09:08)
[2024-04-02] MEDS: sodium chloride 0.9% 250 ML 75 ML IV (09:13)
[2024-04-02 09:20] VITALS: BP 117/72; PULSE 65; RESP 16; TEMP 36; O2SAT 95
[2024-04-02] MEDS: TRASTUZUMAB DTTB IV (09:32)
[2024-04-02] MEDS: SODIUM CHLORIDE 0.9% IV (09:32)
[2024-04-02 10:27] VITALS: BP 123/71; PULSE 73; TEMP 36.1; O2SAT 97
== END 2024-04-02 23:59 | disposition home or self-care (01) ==
PROVIDERS: Nurse Practitioner Family; PCP Internal Medicine; Visit Provider Internal Medicine Medical Oncology
DX: C15.5 Malignant neoplasm of lower third of esophagus (principal); Z53.9 Procedure and treatment not carried out, unspecified reason; Z51.12 Encounter for antineoplastic immunotherapy; Z79.899 Other long term (current) drug therapy
CPT/HCPCS: 80053; 85025; 96365; 96367; 96413; 99214; J1439; J7050; Q5112

== ENCOUNTER 2024-04-19 17:20 | Emergency (ER) | payer MEDICARE, BC, SELFPAY ==
[2024-04-19 17:25] VITALS: BP 134/84; PULSE 84; RESP 22; TEMP 37; O2SAT 92; BMI 31.2
--- NOTE | 2024-04-19 17:42 | XRR_ITS ---
PROCEDURE INFORMATION: Exam: XR Chest Exam date and time: 04/19/2024 5:56 PM Age: 58 years old Clinical indication: Shortness of breath and other: Vomiting blood; Prior surgery; Surgery date: 6+ months; Surgery type: Esophagectomy; Additional info: SOB, HX of esophageal cancer TECHNIQUE: Imaging protocol: Radiologic exam of the chest. Views: 1 view. COMPARISON: CT angio chest PE protcl [id number] 09/12/2023 11:09 PM FINDINGS: Lungs: No focal consolidation. Pleural spaces: No evidence of pneumothorax. No evidence of pleural effusion. Heart/Mediastinum: Cardiomediastinal silhouette is within normal limits. Left-sided MediPort in place with catheter tip terminating in the region of the mid SVC. Bones/joints: No evidence of acute osseous abnormality. XR/XR chest 1V portable [id number] IMPRESSION: 1. No acute cardiopulmonary abnormality.
--- NOTE | 2024-04-19 17:47 | ED_ITS ---
HPI - SOB/Dyspnea 2 General: Chief Complaint: Shortness of Breath/Dyspnea Stated Complaint: sob, vomiting blood Time Seen by Provider: 04/19/24 17:36 Source: patient Mode of arrival: ambulatory Limitations: no limitations History of Present Illness: HPI Narrative: Patient is a 58-year-old male with past medical history of stage IV esophageal cancer currently taking oral chemotherapy who presents to the emergency department complaining of shortness of breath and hemoptysis onset last night. Patient has a history of previous, stating that he has a malignant lymph node that occasionally impinges on his trachea and causes the symptoms. He also is noting some intermittent chest pressure, no history of heart attacks or strokes. He has received multiple rounds of chemo and radiation over the past 5 years. He also reports last night that he had chills while lying in bed. At this time he does not report any fevers, however states that he has been feeling nauseous and has vomited a couple of times. Also reports decrease in appetite. MD elicited complaint: shortness of breath Pertinent past history: other (Esophageal cancer) Onset (ago): day(s) Context: other (Esophageal cancer, history of same in the past) Timing: progressively worsening Severity: severe Associated symptoms: Reports chest pain, hemoptysis, nausea and vomiting; Deny abdominal pain, fever(s), lightheadedness or palpitations Related Data Home Medications Medication Instructions Recorded Confirmed dexamethasone sodium phosphate 10 10 mg IV .PREMED BEFORE CHEMO 10/13/21 03/12/24 mg/mL injection solution timolol maleate 0.5 % eye drops 1 drp ophthalmic (eye) DAILY 10/13/21 03/12/24 trastuzumab-dkst 420 mg 840 mg IV .EVERY 3 WEEKS 10/13/21 03/12/24 intravenous solution (Ogivri) glimepiride 4 mg tablet 4 mg PO BID 05/29/23 03/12/24 palonosetron 0.25 mg/5 mL 0.25 mg IV DIRECTED PRN 05/29/23 03/12/24 intravenous solution premedication before chemo prochlorperazine maleate 10 mg 10 mg PO Q6H PRN Nausea 05/29/23 03/12/24 tablet insulin glargine U-300 conc 300 100 unit SUBCUT DAILY 10/10/23 03/12/24 unit/mL (3 mL) subcutaneous pen (Toujeo Max U-300 SoloStar) Previous Rx's Medication Instructions Recorded blood-glucose meter (Accu-Chek #1 ea 03/09/20 Guide Me Glucose Meter) lancets (Accu-Chek Fastclix Lancet See Rx Instructions .Route 06/25/21 Drum) .COMPLEX #102 ea citalopram 20 mg tablet 20 mg PO QAM #90 tabs 11/03/21 nebivolol 10 mg tablet (Bystolic) 10 mg PO QAM #90 tabs 11/03/21 pantoprazole 40 mg tablet,delayed 40 mg PO BID #180 tabs 11/03/21 release tamsulosin 0.4 mg capsule 0.4 mg PO BID #180 caps 11/03/21 pen needle, diabetic 31 gauge x #100 ea 02/28/22 5/16 (Lite Touch Insulin Pen Hiram) blood sugar diagnostic (Accu-Chek #100 ea 03/14/22 Guide test strips) lorazepam 1 mg tablet 1 mg PO TID PRN nausea #90 tabs 07/11/22 insulin lispro 200 unit/mL (3 mL) See Rx Instructions .Route 07/13/22 subcutaneous pen (Humalog KwikPen .COMPLEX #18 mL U-200 Insulin) oxycodone-acetaminophen 10 mg-325 1 tab PO Q6H PRN pain 30 days #90 01/16/23 mg tablet tabs levothyroxine 150 mcg tablet See Rx Instructions .Route 07/10/23 .COMPLEX #90 tabs ciprofloxacin HCl 500 mg tablet 500 mg PO BID #14 tabs 08/29/23 metronidazole 500 mg tablet 500 mg PO TID #21 tabs 08/29/23 fluticasone propionate 50 1 spray intranasal BID PRN nasal 09/28/23 mcg/actuation nasal congestion #16 grams spray,suspension levofloxacin 750 mg tablet 750 mg PO DAILY 7 days #7 tabs 04/19/24 Allergies Allergy/AdvReac Type Severity Reaction Status Date / Time morphine Allergy Severe ALGY-Anaphy Verified 04/19/24 17:32 laxis Review of Systems 2 General: Reports: 10 or more systems reviewed and unremarkable except in HPI and below Const: Reports: chills and change in appetite; Denies: fever(s) or fatigue Eyes: Denies: change in vision ENMT: Denies: throat pain, ear or mastoid pain or nasal discharge Card: Reports: chest pain; Denies: palpitations, swelling of feet/ankles or lightheadedness Resp: Reports: dyspnea, productive cough and hemoptysis; Denies: wheezing GI: Reports: nausea and vomiting; Denies: abdominal pain, diarrhea or constipation : Denies: flank pain, difficulty urinating, dysuria or urinary frequency Musc: Denies: neck pain, back pain or joint pain Skin/Breast: Denies: rash Neuro: Denies: headache(s), numbness in extremities or weakness in extremities PFSH ED 2 PFSH: Medical History History of diverticulitis Cough variant asthma History of echocardiogram 04/2023 at with EF 58 % Vitamin D deficiency Paralysis of right vocal cord Status-post repair Glaucoma Secondary malignant neoplasm of trachea History of iron deficiency anemia Degenerative arthritis Secondary and unspecified malignant neoplasm of intrathoracic lymph nodes Malignant neoplasm of lower third of esophagus Stage X - T3(yp), N1(yp), M0, G1 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, treated with surgery, chemo and radiation Chronic sinusitis Smokeless tobacco use Hemoptysis Reactive depression Acquired hypothyroidism Hypertriglyceridemia Renal calculus, right Incomplete bladder emptying Hypogonadism Candidal UTI (urinary tract infection) Cystitis cystica YARED on CPAP Essential (primary) hypertension Diabetes mellitus Type II, insulin requiring Surgical History History of throat surgery Right vocal cord - 05/2022 @ [place] by Dr. Josue S/P bronchoscopy (10/2020) Bronchoscopy with palliative resection of tracheal mass History of carpal tunnel release History of total right hip arthroplasty (~07/2019) Port-A-Cath in place (02/24/20) S/P cataract surgery History of esophageal surgery (~10/2018) Mike Rusty esophagectomy H/O: vasectomy S/P ureteral stent placement ESWL History of esophagogastroduodenoscopy (EGD) Hx of colonoscopy Family History Father Heart disease Mother Hypertension Recurrent urinary tract infection Dementia Other Chronic kidney disease (CKD) Diabetes Denies family history of CAD (coronary artery disease) Clotting disorder Hyperlipidemia Psychiatric illness Suicide Anesthesia complication Bleeding disorder Lung disease Cancer Stroke Social History Smoking and tobacco/nicotine status: unknown if used tobacco/nicotine Alcohol intake: never Substance/Drug Use: never Adopted: No Caregiver/support person: No Lives independently: No Household members: spouse Housing: House Marital status: Current occupational status: disabled Physical Exam 2 Const: COMMON NORMALS: no acute distress, patient oriented x3 and no limitations GENERAL APPEARANCE: cooperative, comfortable and well developed ORIENTATION/CONSCIOUSNESS: Yes awake, Yes oriented to person, Yes oriented to place and Yes oriented to time HENMT: COMMON NORMALS: normocephalic, atraumatic, hearing grossly normal bilaterally, moist oral mucous membranes and oropharynx normal HEAD & SCALP: normocephalic and atraumatic Eye: COMMON NORMALS: Equal, round and reactive pupils present, EOMs intact bilaterally and conjunctivae normal CONJUNCTIVA: Yes conjunctivae normal P UPIL: Yes Equal, round and reactive pupils present Neck/C-Spine: COMMON NORMALS: full ROM, no lymphadenopathy, supple and no JVD Chest: COMMONS NORMALS: normal inspection of the chest and normal palpation of entire chest wall Resp: COMMON NORMALS: normal respiratory effort, No retractions, No use of accessory muscles and clear to auscultation bilaterally AUSCULTATION: clear to auscultation bilaterally Cardio: COMMON NORMALS: no JVD, regular rate, regular rhythm, No clicks present (Cardio), No murmurs present (Cardio) and No rub (Cardio) RATE: r egular rate RHYTHM: regular rhythm GI: COMMON NORMALS: Normal to inspection, nondistended, normoactive bowel sounds present, Soft to palpation and non-tender AUSCULTATION: Yes normoactive bowel sounds PALPATION: Yes Soft to palpation RECTAL EXAM: Yes deferred Extremity: COMMON NORMALS: normal to inspection, full ROM and capillary refill normal Neuro: COMMON NORMALS: patient oriented x3, moves all extremities, no focal motor deficits and no sensory deficits noted SENSORIUM/ORIENTATION: Yes oriented to person, Yes oriented to place and Yes oriented to time Psych: COMMON NORMALS: mental status grossly normal and Normal thought process present THOUGHT PROCESS: Normal thought process present Skin: COMMON NORMALS: no rashes or lesions noted GENERAL SKIN EXAM: no rashes or lesions noted Course 2 Vital Signs: Vital signs: Vital Signs Temperature 98.6 F 04/19/24 17:25 Pulse Rate 81 04/19/24 20:36 Respiratory Rate 18 04/19/24 20:36 Blood Pressure 152/82 04/19/24 20:36 Pulse Oximetry 91 04/19/24 20:36 Oxygen Delivery Me thod Room Air 04/19/24 20:36 MDM - SOB/Dyspnea Medical Decision Making Patient presented for evaluation of hemoptysis and some shortness of breath beginning last night. He has a history of same where he states he is had impingement of a malignant lymph node onto his esophagus. He does have a history of stage IV esophageal cancer, currently is on oral chemotherapy. On arrival his vitals were stable, breathing comfortably on room air. Chest x-ray did not demonstrate any acute abnormalities. His lab work all essentially stable, aside from elevation in his white count, likely secondary to an infection that is also causing the hemoptysis. He also had unremarkable EKG findings that were reviewed with physician, and troponin was negative. Lactic negative. In addition to this, and his neck and chest CT did not demonstrate any acute findings. He has appointment with Dr. Kearns next week, and is to keep this plan as scheduled. He is given very strict return precautions to the emergency department, such that if he has any worsening of shortness of breath or worsening hemoptysis, he will return for reevaluation and probable admission. Shared decision making was discussed with family in the room, who states that they can treat at home with antibiotics and will return with any new or worsening. We will start him on Levaquin, and he will continue taking his chemotherapy and follow-up next week as planned. This case was discussed with Dr. Herrera who agrees with disposition. Lab Data 04/19/24 18:09 04/19/24 18:09 Labs/Radiology: Radiology Impressions Chest X-Ray 04/19/24 17:42 IMPRESSION: 1. No acute cardiopulmonary abnormality. Chest CT 04/19/24 18:33 IMPRESSION: 1. No evidence of acute abnormality in the chest. 2. Right paraesophageal soft tissue thickening, similar to prior exam from September 2023 and possibly reflecting radiation change. If there is clinical concern for recurrent lesion, consider oncology evaluation and follow-up PET-CT. 3. Postsurgical changes status post esophagectomy and gastric pull-through. Neck CT 04/19/24 18:33 IMPRESSION: 1. Soft tissue swelling adjacent to the esophagus at the level of the thoracic inlet. Findings are similar to the prior soft tissue neck CT dated 10/12/2021 2. Opacities in the right lung apex medially, similar to the prior examination. Laboratory Results WBC 18.67 10^3/uL (3.29-11.43) H 04/19/24 18:09 RBC 5.23 10^6/uL (3.85-5.65) 04/19/24 18:09 Hgb 16.60 g/dL (11.27-16.99) 04/19/24 18:09 Hct 48.0 % (37-53) 04/19/24 18:09 MCV 91.8 fl (82-101) 04/19/24 18:09 MCH 31.7 pg (27-33) 04/19/24 18:09 MCHC 34.6 g/dL (30-55) 04/19/24 18:09 RDW 20.8 % (12.1-15.1) H 04/19/24 18:09 Plt Count 172 10^3/cmm (157-399) 04/19/24 18:09 MPV 9.5 fL (7.4-10.4) 04/19/24 18:09 Neut % (Auto) 85.5 % 04/19/24 18:09 Lymph % (Auto) 6.3 % 04/19/24 18:09 [place] % (Auto) 7.1 % 04/19/24 18:09 Eos % (Auto) 0.1 % 04/19/24 18:09 Baso % (Auto) 0.3 % 04/19/24 18:09 Neut # (Auto) 15.95 10^3/uL (1.8-7.7) H 04/19/24 18:09 Lymph # (Auto) 1.2 10^3/uL (0.8-4.8) 04/19/24 18:09 [place] # (Auto) 1.3 10^3/uL (0.2-0.9) H 04/19/24 18:09 Eos # (Auto) 0.0 10^3/uL (0.0-0.8) 04/19/24 18:09 Baso # (Auto) 0.1 10^3/uL (0.0-0.1) 04/19/24 18:09 Nucleated RBC % (auto) 0 % 04/19/24 18:09 Nucleated RBCs # 0.0 /100WBC 04/19/24 18:09 Sodium 141 mmol/L (136-145) 04/19/24 18:09 Potassium 3.8 mmol/L (3.5-5.1) 04/19/24 18:09 Chloride 102 mmol/L (98-107) 04/19/24 18:09 Carbon Dioxide 28 mmol/L (22-29) 04/19/24 18:09 Anion Gap 14.8 (5-19) 04/19/24 18:09 BUN 10 mg/dL (6-20) 04/19/24 18:09 Creatinine 0.5 mg/dL (0.7-1.2) L 04/19/24 18:09 GFR Calculation 172.0 mL/min (90-130) H 04/19/24 18:09 Glucose 139 mg/dL (65-115) H 04/19/24 18:09 Calculated Osmolality 293 mOsm/kg (285-295) 04/19/24 18:09 Lactic Acid 1.7 mmol/L (0.5-2.2) 04/19/24 18:09 Calcium 8.8 mg/dL (8.5-10.5) 04/19/24 18:09 Total Bilirubin 1.0 mg/dL (0.15-1.2) 04/19/24 18:09 AST 23 U/L (0-40) 04/19/24 18:09 ALT 35 U/L (0-41) 04/19/24 18:09 Alkaline Phosphatase 103 U/L (40-130) 04/19/24 18:09 Troponin T Baseline 17 ng/L (0-15) H 04/19/24 18:09 C-Reactive Protein 35.8 mg/L (0.0-4.9) H 04/19/24 18:09 Total Protein 6.5 g/dL (6.6-8.7) L 04/19/24 18:09 Albumin 4.5 g/dL (3.5-5.2) 04/19/24 18:09 Globulin 2.0 g/dL (1.3-4.6) 04/19/24 18:09 All radiology interpretation(s) finalized by discharge Discharge Plan Discharge Patient Disposition: Home Clinical Impression: Hemoptysis, Adenocarcinoma of esophagus, stage 4 Upper respiratory infection Qualifiers: URI type: unspecified URI Qualified Code(s): J06.9 - Acute upper respiratory infection, unspecified Condition: Stable Prescriptions: New levofloxacin 750 mg tablet 750 mg PO DAILY 7 Days Qty: 7 0RF No Action pantoprazole 40 mg tablet,delayed release (DR/EC) 40 mg PO BID Qty: 180 3RF citalopram 20 mg tablet 20 mg PO QAM Qty: 90 3RF Bystolic 10 mg tablet 10 mg PO QAM Qty: 90 3RF tamsulosin 0.4 mg capsule 0.4 mg PO BID Qty: 180 3RF ciprofloxacin HCl 500 mg tablet 500 mg PO BID Qty: 14 0RF metronidazole 500 mg tablet 500 mg PO TID Qty: 21 0RF Toujeo Max U-300 SoloStar 300 unit/mL (3 mL) insulin pen 100 unit SUBCUT DAILY lorazepam 1 mg tablet 1 mg PO TID PRN (Reason: nausea) Qty: 90 2RF (DME) blood-glucose meter [Accu-Chek Guide Me Glucose Mtr] Misc See Rx Instructions .ROUTE .MEDSUPPLY Qty: 1 0RF Rx Instructions: to check blood sugar as direced lancets [Accu-Chek Fastclix Lancet Drum] Misc See Rx Instructions .ROUTE .COMPLEX Qty: 102 5RF Dose Instruction: USE 1 TO CHECK BLOOD SUGAR 3-4 TIMES DAILY DIRECTED Rx Instructions: USE 1 TO CHECK BLOOD SUGAR 3-4 TIMES DAILY DIRECTED (DME) pen needle, diabetic [Lite Touch Insulin Pen Hiram] 31 gauge x 5/16 needle See Rx Instructions .Route Qty: 100 12RF Rx Instructions: As directed (DME) Accu-Chek Guide test strips Strip See Rx Instructions .ROUTE .MEDSUPPLY Qty: 100 5RF Rx Instructions: to test blood sugar as directed 3-4 times daily Humalog KwikPen Insulin 200 unit/mL (3 mL) insulin pen See Rx Instructions .ROUTE .COMPLEX Qty: 18 3RF Rx Instructions: sliding scale subcutaneously prn oxycodone-acetaminophen 10-325 mg tablet 1 tab PO Q6H PRN (Reason: pain) 30 Days Qty: 90 0RF levothyroxine 150 mcg tablet See Rx Instructions .ROUTE .COMPLEX Qty: 90 3RF Dose Instruction: TAKE 1 TABLET DAILY Rx Instructions: TAKE 1 TABLET DAILY fluticasone propionate 50 mcg/actuation spray,suspension 1 spray intranasal BID PRN (Reason: nasal congestion) Qty: 16 3RF timolol maleate 0.5 % drops 1 drp ophthalmic (eye) DAILY Rx Instructions: in left eye dexamethasone sodium phosphate 10 mg/mL Solution 10 mg IV .PREMED BEFORE CHEMO Ogivri 420 mg Recon Soln 840 mg IV .EVERY 3 WEEKS Rx Instructions: prior to pump infusion prochlorperazine maleate 10 mg Tablet 10 mg PO Q6H PRN (Reason: Nausea) glimepiride 4 mg Tablet 4 mg PO BID palonosetron 0.25 mg/5 mL Solution 0.25 mg IV DIRECTED PRN (Reason: premedication before chemo) Discharge Orders: Discharge ED (Routine); Ordered 04/19/24 Ordered By: Curt Cool Referrals: Luis Luna MD [Primary Care Provider] - Discharge Diet: Usual diet Discharge Activity: Increase activity as tolerated Patient Instructions: Hemoptysis Activity Restrictions/Additional Instructions: Take antibiotics as prescribed. Please follow-up with Dr. Kearns early next week as already scheduled. If you develop any worsening of symptoms, specifically worsening shortness of breath, please return immediately to the emergency department. Coding Level of Care Code ED Supervisor Cab for Jessica Ndiaye
[2024-04-19] MEDS: sodium chloride 0.9% 1,000 ML 999 ML IV (18:15)
[2024-04-19] MEDS: ondansetron 2 mg/ML SDV 2 mL 4 MG IVP (18:15)
[2024-04-19 18:18] VITALS: BP 146/105; PULSE 77; RESP 18; O2SAT 90
[2024-04-19 18:24] LABS: Basophils # 0.1 10^3/uL (0.0-0.1); Basophils % 0.3 %; Eosinophils % 0.1 %; Lymphocytes # 1.2 10^3/uL (0.8-4.8); Lymphocytes % 6.3 %; Mean Corpuscular HGB Conc 34.6 g/dL (30-55); Mean Corpuscular Hemoglobin 31.7 pg (27-33); Mean Corpuscular Volume 91.8 fl (82-101); Mean Platelet Volume 9.5 fL (7.4-10.4); Monocytes # 1.3 10^3/uL (0.2-0.9); Monocytes % 7.1 %; Neutrophils # 15.95 10^3/uL (1.8-7.7); Neutrophils % 85.5 %; Nucleated Red Blood Cells % 0 %; Platelet Count 172 10^3/cmm (157-399); Red Blood Count 5.23 10^6/uL (3.85-5.65); Red Cell Distribution Width 20.8 % (12.1-15.1); White Blood Count 18.67 10^3/uL (3.29-11.43)
--- NOTE | 2024-04-19 18:33 | CTR_ITS ---
PROCEDURE INFORMATION: Exam: CT Neck With Contrast Exam date and time: 04/19/2024 7:20 PM Age: 58 years old Clinical indication: Prior surgery; Surgery date: 6+ months; Surgery type: Mike heidi esophagectomy. Chest port; Patient HX: Chest tightness with SOB and hemoptysis. History of esophageal adenocarcinoma. ; Additional info: Esophageal CA HX, coughing up blood TECHNIQUE: Imaging protocol: Computed tomography of the neck with contrast. Radiation optimization: All CT scans at this facility use at least one of these dose optimization techniques: automated exposure control; mA and/or kV adjustment per patient size (includes targeted exams where dose is matched to clinical indication); or iterative reconstruction. Contrast material: OMNI 350; Contrast volume: 50 ml; Contrast route: INTRAVENOUS (IV); COMPARISON: CT neck w con* [id number] 10/12/2021 5:26 PM RADIATION DOSE METRICS: Total DLP (mGy-cm): 311.91 FINDINGS: Salivary glands: Normal. Glands are normal in size. Teeth: Periodontal disease. Pharynx: Unremarkable. No significant tonsillar enlargement. Prevertebral and retropharyngeal spaces: Unremarkable. Larynx: Unremarkable. Epiglottis is normal. Thyroid: Normal. No enlarged or calcified nodules. Trachea: Visualized trachea is unremarkable. Lungs: Opacities in the right lung apex medially. Lymph nodes: Unremarkable. No lymphadenopathy. Bones/joints: Unremarkable. No acute fracture. Soft tissues: Soft tissue swelling adjacent to the esophagus at the level of the thoracic inlet. CT/CT neck w con* [id number] IMPRESSION: 1. Soft tissue swelling adjacent to the esophagus at the level of the thoracic inlet. Findings are similar to the prior soft tissue neck CT dated 10/12/2021 2. Opacities in the right lung apex medially, similar to the prior examination.
--- NOTE | 2024-04-19 18:33 | CTR_ITS ---
PROCEDURE INFORMATION: Exam: CT Chest With Contrast; Diagnostic Exam date and time: 04/19/2024 7:16 PM Age: 58 years old Clinical indication: Pain; Cough and shortness of breath; Chest pressure; Prior surgery; Surgery date: 6+ months; Surgery type: [place] heidi esophagectomy. Chest port; Patient HX: Chest tightness with SOB and hemoptysis. History of esophageal adenocarcinoma. ; Additional info: Esophageal CA HX, coughing up blood, SOB TECHNIQUE: Imaging protocol: Diagnostic computed tomography of the chest with contrast. Radiation optimization: All CT scans at this facility use at least one of these dose optimization techniques: automated exposure control; mA and/or kV adjustment per patient size (includes targeted exams where dose is matched to clinical indication); or iterative reconstruction. Contrast material: OMNI 350; Contrast volume: 70 ml; Contrast route: INTRAVENOUS (IV); COMPARISON: CT angio chest PE protcl [id number] 09/12/2023 11:09 PM RADIATION DOSE METRICS: Total DLP (mGy-cm): 631.25 FINDINGS: Thyroid: Grossly unremarkable. Lungs: No focal consolidation. Scarring/volume loss in the medial right apex suggestive of radiation change, similar to prior exam from September 2023. Pleural spaces: No pleural effusion. No pneumothorax. Heart: No cardiomegaly. No pericardial effusion. Mediastinal space: Postsurgical changes compatible with esophagectomy and gastric pull-through. No convincing evidence of recurrent lesion. No evidence of mediastinal fluid collection or hematoma. Left-sided MediPort in place with tip terminating in the mid SVC. Again seen is soft tissue thickening in the right paratracheal region, not significantly changed since September 2023. Lymph nodes: No evidence of mediastinal or hilar adenopathy. There is a calcified right paratracheal node, possibly sequela of a remote granulomatous process, not significantly changed since September 2023. Vasculature: No aneurysmal dilatation of the thoracic aorta. No evidence of dissection. Though this study is not tailored to evaluate for pulmonary thromboembolism, there is no evidence of PE within limitations of respiratory motion. Bones/joints: No evidence of acute fracture or aggressive osseous lesion. Soft tissues: No fluid collection or hematoma in the superficial soft tissues. Other findings: No evidence of acute abnormality in the upper abdomen. CT/CT chest w con* [id number] IMPRESSION: 1. No evidence of acute abnormality in the chest. 2. Right paraesophageal soft tissue thickening, similar to prior exam from September 2023 and possibly reflecting radiation change. If there is clinical concern for recurrent lesion, consider oncology evaluation and follow-up PET-CT. 3. Postsurgical changes status post esophagectomy and gastric pull-through.
--- NOTE | 2024-04-19 18:45 | PC.NURSE ---
port accessed 19g. no complications. pt tolerated well.
[2024-04-19 18:46] LABS: Troponin(5th) Baseline 17 ng/L (0-15)
[2024-04-19 18:49] LABS: Lactic Sepsis W/Reflex 1.7 mmol/L (0.5-2.2)
[2024-04-19 18:51] LABS: Alanine Aminotransferase 35 U/L (0-41); Albumin Level 4.5 g/dL (3.5-5.2); Alkaline Phosphatase 103 U/L (40-130); Anion Gap 14.8 (5-19); Aspartate Amino Transferase 23 U/L (0-40); Blood Urea Nitrogen 10 mg/dL (6-20); C Reactive Protein 35.8 mg/L (0.0-4.9); Calcium 8.8 mg/dL (8.5-10.5); Carbon Dioxide 28 mmol/L (22-29); Chloride 102 mmol/L (98-107); Creatinine Clr Calc Pharmacy 224.1381; Glucose 139 mg/dL (65-115); Osmolality Calculated 293 mOsm/kg (285-295); Potassium 3.8 mmol/L (3.5-5.1); Sodium 141 mmol/L (136-145); Total Protein 6.5 g/dL (6.6-8.7)
[2024-04-19] MEDS: iohexol 350 mg/mL 500 mL Btl (per mL) IV (19:19)
--- NOTE | 2024-04-19 19:42 | ECG_ITS ---
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
[2024-04-19] MEDS: HYDROcodone-acetaminophen 7.5-325 mg Tablet 1 TAB PO (19:52)
[2024-04-19 19:53] VITALS: BP 148/84; PULSE 90; O2SAT 92
[2024-04-19 20:36] VITALS: BP 152/82; PULSE 81; RESP 18; O2SAT 91
[2024-04-19 21:00] VITALS: BP 134/80; PULSE 80; RESP 16; O2SAT 94
[2024-04-19] MEDS: levoFLOXacin 750 mg Tablet PO (21:02)
[2024-04-19 21:15] LABS: Troponin 5 2HR 16.67 ng/L (0-15)
[2024-04-19 21:16] VITALS: BP 134/80; PULSE 78; RESP 16; TEMP 37; O2SAT 97
[2024-04-19 21:20] LABS: Troponin 5 2HR Delta -0.33 ABS# (0-10)
== END 2024-04-19 21:17 | disposition home or self-care (01) ==
PROVIDERS: Emergency Provider Physician Assistant; PCP Internal Medicine
DX: J06.9 Acute upper respiratory infection, unspecified (principal); R04.2 Hemoptysis; C15.9 Malignant neoplasm of esophagus, unspecified; Z79.84 Long term (current) use of oral hypoglycemic drugs; Z79.4 Long term (current) use of insulin; Z85.12 Personal history of malignant neoplasm of trachea; Z85.72 Personal history of non-Hodgkin lymphomas; E11.9 Type 2 diabetes mellitus without complications; I10 Essential (primary) hypertension; Z79.60 Long term (current) use of unspecified immunomodulators and immunosuppressants
CPT/HCPCS: 36415; 70491; 71045; 71260; 80053; 83605; 84484; 85025; 86140; 87040; 93005; 96374; 99285; J2405; J7030; Q9967

== ENCOUNTER 2024-04-23 08:29 | Oncology outpatient (recurring) (ONCR) | payer MEDICARE, BC, SELFPAY ==
[2024-04-23 09:20] VITALS: BP 152/80; PULSE 77; RESP 16; TEMP 36.3; O2SAT 97
[2024-04-23 09:24] LABS: Basophils # 0.1 10^3/uL (0.0-0.1); Basophils % 0.6 %; Eosinophils # 0.1 10^3/uL (0.0-0.8); Eosinophils % 1.2 %; Hematocrit 47.5 % (37-53); Lymphocytes # 1.2 10^3/uL (0.8-4.8); Lymphocytes % 14.4 %; Mean Corpuscular HGB Conc 33.5 g/dL (30-55); Mean Corpuscular Hemoglobin 31.4 pg (27-33); Mean Corpuscular Volume 93.9 fl (82-101); Mean Platelet Volume 9.5 fL (7.4-10.4); Monocytes # 0.6 10^3/uL (0.2-0.9); Monocytes % 7.9 %; Neutrophils # 6.14 10^3/uL (1.8-7.7); Neutrophils % 75.4 %; Nucleated Red Blood Cells % 0 %; Platelet Count 176 10^3/cmm (157-399); Red Blood Count 5.06 10^6/uL (3.85-5.65); Red Cell Distribution Width 19.9 % (12.1-15.1); White Blood Count 8.14 10^3/uL (3.29-11.43)
[2024-04-23] MEDS: loratadine 10 mg Tablet PO (09:24)
[2024-04-23] MEDS: acetaminophen 325 mg Tablet 650 MG PO (09:24)
[2024-04-23] MEDS: sodium chloride 0.9% 250 ML 75 ML IV (09:24)
[2024-04-23 09:42] LABS: Alanine Aminotransferase 27 U/L (0-41); Alkaline Phosphatase 93 U/L (40-130); Anion Gap 13.9 (5-19); Aspartate Amino Transferase 23 U/L (0-40); Blood Urea Nitrogen 12 mg/dL (6-20); Calcium 8.4 mg/dL (8.5-10.5); Carbon Dioxide 26 mmol/L (22-29); Chloride 104 mmol/L (98-107); Creatinine Clr Calc Pharmacy 161.1573; Globulin 2.4 g/dL (1.3-4.6); Glomerular Filtration Rate 116.7 mL/min (90-130); Glucose 139 mg/dL (65-115); Osmolality Calculated 292 mOsm/kg (285-295); Potassium 3.9 mmol/L (3.5-5.1); Sodium 140 mmol/L (136-145); Total Bilirubin 0.6 mg/dL (0.15-1.2); Total Protein 6.4 g/dL (6.6-8.7)
[2024-04-23] MEDS: SODIUM CHLORIDE 0.9% IV (10:00)
[2024-04-23] MEDS: TRASTUZUMAB DTTB IV (10:00)
[2024-04-23 10:45] VITALS: BP 171/80; PULSE 78; RESP 16; O2SAT 95
== END 2024-05-04 23:59 | disposition home or self-care (01) ==
PROVIDERS: Nurse Practitioner Family; PCP Internal Medicine; Visit Provider Internal Medicine Medical Oncology
DX: Z51.12 Encounter for antineoplastic immunotherapy; C15.5 Malignant neoplasm of lower third of esophagus; D50.8 Other iron deficiency anemias; Z79.899 Other long term (current) drug therapy; Z95.828 Presence of other vascular implants and grafts; Z92.3 Personal history of irradiation
CPT/HCPCS: 80053; 85025; 96413; 99214; J7050; Q5112

== ENCOUNTER 2024-05-14 08:07 | Oncology outpatient (recurring) (ONCR) | payer MEDICARE, BC, SELFPAY ==
[2024-05-14 08:25] VITALS: BP 147/79; PULSE 66; RESP 16; TEMP 36.3; O2SAT 95
[2024-05-14 08:36] LABS: Basophils % 0.4 %; Eosinophils # 0.2 10^3/uL (0.0-0.8); Eosinophils % 2.6 %; Hematocrit 44.7 % (37-53); Lymphocytes # 1.6 10^3/uL (0.8-4.8); Lymphocytes % 23.9 %; Mean Corpuscular HGB Conc 34.5 g/dL (30-55); Mean Corpuscular Volume 92.7 fl (82-101); Mean Platelet Volume 10.2 fL (7.4-10.4); Monocytes # 0.9 10^3/uL (0.2-0.9); Monocytes % 12.5 %; Neutrophils # 4.15 10^3/uL (1.8-7.7); Neutrophils % 60.5 %; Nucleated Red Blood Cells % 0 %; Platelet Count 169 10^3/cmm (157-399); Red Blood Count 4.82 10^6/uL (3.85-5.65); Red Cell Distribution Width 17.2 % (12.1-15.1); White Blood Count 6.87 10^3/uL (3.29-11.43)
[2024-05-14 08:53] LABS: Alanine Aminotransferase 26 U/L (0-41); Albumin Level 3.9 g/dL (3.5-5.2); Alkaline Phosphatase 117 U/L (40-130); Anion Gap 10.1 (5-19); Aspartate Amino Transferase 24 U/L (0-40); Blood Urea Nitrogen 11 mg/dL (6-20); Calcium 8.4 mg/dL (8.5-10.5); Carbon Dioxide 28 mmol/L (22-29); Chloride 106 mmol/L (98-107); Globulin 2.1 g/dL (1.3-4.6); Glomerular Filtration Rate 139.4 mL/min (90-130); Glucose 166 mg/dL (65-115); Osmolality Calculated 293 mOsm/kg (285-295); Potassium 4.1 mmol/L (3.5-5.1); Sodium 140 mmol/L (136-145); Total Bilirubin 0.4 mg/dL (0.15-1.2)
[2024-05-14] MEDS: sodium chloride 0.9% 250 ML 75 ML IV (09:37)
[2024-05-14] MEDS: loratadine 10 mg Tablet PO (09:37)
[2024-05-14] MEDS: acetaminophen 325 mg Tablet 650 MG PO (09:37)
[2024-05-14] MEDS: SODIUM CHLORIDE 0.9% IV (09:57)
[2024-05-14] MEDS: TRASTUZUMAB DTTB IV (09:57)
[2024-05-14 10:45] VITALS: BP 133/71; PULSE 71; RESP 16; TEMP 36.1; O2SAT 96
== END 2024-06-03 23:59 | disposition home or self-care (01) ==
PROVIDERS: Nurse Practitioner Family; PCP Internal Medicine; Visit Provider Internal Medicine Medical Oncology
DX: Z51.12 Encounter for antineoplastic immunotherapy (principal); Z51.11 Encounter for antineoplastic chemotherapy; Z79.899 Other long term (current) drug therapy; C15.5 Malignant neoplasm of lower third of esophagus
CPT/HCPCS: 80053; 85025; 96413; J7050; Q5112

== ENCOUNTER 2024-07-02 08:05 | Oncology outpatient (recurring) (ONCR) | payer MEDICARE, BC, SELFPAY ==
[2024-06-04 08:17] LABS: Basophils % 0.6 %; Eosinophils # 0.1 10^3/uL (0.0-0.8); Eosinophils % 1.3 %; Hematocrit 45.9 % (37-53); Lymphocytes # 1.6 10^3/uL (0.8-4.8); Mean Corpuscular HGB Conc 34.6 g/dL (30-55); Mean Corpuscular Hemoglobin 32.4 pg (27-33); Mean Corpuscular Volume 93.7 fl (82-101); Monocytes # 0.7 10^3/uL (0.2-0.9); Monocytes % 10.4 %; Neutrophils % 62.4 %; Nucleated Red Blood Cells % 0 %; Platelet Count 186 10^3/cmm (157-399); Red Cell Distribution Width 15.6 % (12.1-15.1); White Blood Count 6.25 10^3/uL (3.29-11.43)
[2024-06-04 08:53] LABS: Alanine Aminotransferase 24 U/L (0-41); Albumin Level 4.1 g/dL (3.5-5.2); Alkaline Phosphatase 109 U/L (40-130); Anion Gap 13.9 (5-19); Aspartate Amino Transferase 22 U/L (0-40); Blood Urea Nitrogen 18 mg/dL (6-20); Calcium 8.2 mg/dL (8.5-10.5); Carbon Dioxide 29 mmol/L (22-29); Chloride 103 mmol/L (98-107); Glomerular Filtration Rate 139.4 mL/min (90-130); Glucose 229 mg/dL (65-115); Osmolality Calculated 303 mOsm/kg (285-295); Potassium 3.9 mmol/L (3.5-5.1); Sodium 142 mmol/L (136-145); Total Bilirubin 0.5 mg/dL (0.15-1.2); Total Protein 6.1 g/dL (6.6-8.7)
[2024-06-04 08:58] LABS: Creatinine Clr Calc Pharmacy 189.9567
[2024-06-04] MEDS: acetaminophen 325 mg Tablet 650 MG PO (09:10)
[2024-06-04] MEDS: loratadine 10 mg Tablet PO (09:11)
[2024-06-04] MEDS: SODIUM CHLORIDE 0.9% IV (09:59)
[2024-06-04] MEDS: TRASTUZUMAB ANNS IV (09:59)
[2024-06-04] MEDS: sodium chloride 0.9% 250 ML 75 ML IV (09:59)
[2024-06-04 10:40] VITALS: BP 160/81; PULSE 57; RESP 16; TEMP 36.1; O2SAT 97
[2024-07-02 08:23] VITALS: BP 150/77; PULSE 62; RESP 16; TEMP 36.3; O2SAT 95
[2024-07-02 09:02] LABS: Basophils # 0.1 10^3/uL (0.0-0.1); Basophils % 0.7 %; Eosinophils # 0.2 10^3/uL (0.0-0.8); Eosinophils % 2.8 %; Hematocrit 46.9 % (37-53); Lymphocytes # 1.7 10^3/uL (0.8-4.8); Lymphocytes % 25.3 %; Mean Corpuscular HGB Conc 34.5 g/dL (30-55); Mean Corpuscular Hemoglobin 32.7 pg (27-33); Mean Corpuscular Volume 94.6 fl (82-101); Mean Platelet Volume 10.7 fL (7.4-10.4); Monocytes # 0.8 10^3/uL (0.2-0.9); Monocytes % 11.4 %; Neutrophils # 4.08 10^3/uL (1.8-7.7); Neutrophils % 59.5 %; Nucleated Red Blood Cells % 0 %; Platelet Count 182 10^3/cmm (157-399); Red Blood Count 4.96 10^6/uL (3.85-5.65); Red Cell Distribution Width 13.3 % (12.1-15.1); White Blood Count 6.85 10^3/uL (3.29-11.43)
[2024-07-02 09:22] LABS: Albumin Level 4.2 g/dL (3.5-5.2); Alkaline Phosphatase 121 U/L (40-130); Blood Urea Nitrogen 16 mg/dL (6-20); Calcium 8.1 mg/dL (8.5-10.5); Carbon Dioxide 27 mmol/L (22-29); Chloride 101 mmol/L (98-107); Globulin 2.1 g/dL (1.3-4.6); Glomerular Filtration Rate 139.4 mL/min (90-130); Glucose 169 mg/dL (65-115); Osmolality Calculated 291 mOsm/kg (285-295); Sodium 138 mmol/L (136-145); Total Bilirubin 0.4 mg/dL (0.15-1.2); Total Protein 6.3 g/dL (6.6-8.7)
[2024-07-02 09:25] LABS: Creatinine Clr Calc Pharmacy 189.9567
[2024-07-02 09:26] LABS: Anion Gap 13.7 (5-19); Potassium 3.7 mmol/L (3.5-5.1)
[2024-07-02 09:27] LABS: Alanine Aminotransferase 24 U/L (0-41); Aspartate Amino Transferase 22 U/L (0-40)
[2024-07-02] MEDS: loratadine 10 mg Tablet PO (11:34)
[2024-07-02] MEDS: acetaminophen 325 mg Tablet 650 MG PO (11:34)
[2024-07-02] MEDS: sodium chloride 0.9% 250 ML 75 ML IV (11:36)
[2024-07-02] MEDS: TRASTUZUMAB ANNS IV (11:38)
[2024-07-02] MEDS: SODIUM CHLORIDE 0.9% IV (11:38)
[2024-07-02 12:15] VITALS: BP 166/83; PULSE 51; RESP 16; TEMP 35.8; O2SAT 98
== END 2024-07-02 23:59 | disposition home or self-care (01) ==
PROVIDERS: Nurse Practitioner Family; PCP Internal Medicine; Visit Provider Internal Medicine Hematology & Oncology
DX: Z51.12 Encounter for antineoplastic immunotherapy (principal); C15.5 Malignant neoplasm of lower third of esophagus; Z79.899 Other long term (current) drug therapy; Z53.9 Procedure and treatment not carried out, unspecified reason
CPT/HCPCS: 80053; 85025; 96413; 99214; J7050; Q5117

== ENCOUNTER 2024-07-23 07:29 | Oncology outpatient (recurring) (ONCR) | payer MEDICARE, BC, SELFPAY ==
[2024-07-23 07:50] LABS: Basophils % 0.4 %; Eosinophils # 0.1 10^3/uL (0.0-0.8); Eosinophils % 1.3 %; Hematocrit 43.9 % (37-53); Lymphocytes % 10.9 %; Mean Corpuscular HGB Conc 34.9 g/dL (30-55); Mean Corpuscular Volume 94.6 fl (82-101); Mean Platelet Volume 10.3 fL (7.4-10.4); Monocytes # 0.8 10^3/uL (0.2-0.9); Monocytes % 7.9 %; Neutrophils % 79.2 %; Nucleated Red Blood Cells % 0 %; Platelet Count 167 10^3/cmm (157-399); Red Blood Count 4.64 10^6/uL (3.85-5.65); Red Cell Distribution Width 12.8 % (12.1-15.1); White Blood Count 9.47 10^3/uL (3.29-11.43)
[2024-07-23 08:11] LABS: Alanine Aminotransferase 19 U/L (0-41); Albumin Level 3.9 g/dL (3.5-5.2); Alkaline Phosphatase 97 U/L (40-130); Anion Gap 10.4 (5-19); Aspartate Amino Transferase 20 U/L (0-40); Blood Urea Nitrogen 19 mg/dL (6-20); Calcium 7.8 mg/dL (8.5-10.5); Carbon Dioxide 29 mmol/L (22-29); Chloride 100 mmol/L (98-107); Creatinine Clr Calc Pharmacy 190.6629; Glomerular Filtration Rate 139.4 mL/min (90-130); Glucose 334 mg/dL (65-115); Osmolality Calculated 297 mOsm/kg (285-295); Potassium 3.4 mmol/L (3.5-5.1); Sodium 136 mmol/L (136-145); Total Bilirubin 0.6 mg/dL (0.15-1.2); Total Protein 5.9 g/dL (6.6-8.7)
[2024-07-23] MEDS: sodium chloride 0.9% 250 ML 50 ML IV (09:21)
[2024-07-23] MEDS: acetaminophen 325 mg Tablet 650 MG PO (09:22)
[2024-07-23] MEDS: loratadine 10 mg Tablet PO (09:22)
[2024-07-23 09:27] VITALS: BP 106/79; PULSE 88; RESP 16; TEMP 36.2
[2024-07-23] MEDS: TRASTUZUMAB ANNS IV (09:48)
[2024-07-23] MEDS: SODIUM CHLORIDE 0.9% IV (09:48)
[2024-07-23 10:40] VITALS: BP 126/69; PULSE 50; RESP 16; TEMP 36; O2SAT 95
== END 2024-08-03 23:59 | disposition home or self-care (01) ==
PROVIDERS: Internal Medicine Medical Oncology; PCP Internal Medicine; Visit Provider Internal Medicine Hematology & Oncology
DX: Z51.12 Encounter for antineoplastic immunotherapy (principal); C15.5 Malignant neoplasm of lower third of esophagus; Z79.899 Other long term (current) drug therapy; Z92.3 Personal history of irradiation; D50.8 Other iron deficiency anemias
CPT/HCPCS: 80053; 85025; 96375; 96413; 99214; J7050; Q5117

== ENCOUNTER 2024-09-03 08:45 | Oncology outpatient (recurring) (ONCR) | payer MEDICARE, BC, SELFPAY ==
[2024-08-13 09:33] LABS: Basophils % 0.4 %; Eosinophils # 0.1 10^3/uL (0.0-0.8); Eosinophils % 1.2 %; Hematocrit 44.6 % (37-53); Lymphocytes # 1.1 10^3/uL (0.8-4.8); Lymphocytes % 11.1 %; Mean Corpuscular HGB Conc 35.2 g/dL (30-55); Mean Corpuscular Hemoglobin 33.5 pg (27-33); Mean Corpuscular Volume 95.1 fl (82-101); Mean Platelet Volume 10.2 fL (7.4-10.4); Monocytes # 0.8 10^3/uL (0.2-0.9); Monocytes % 7.8 %; Neutrophils # 8.11 10^3/uL (1.8-7.7); Neutrophils % 79.2 %; Nucleated Red Blood Cells % 0 %; Platelet Count 185 10^3/cmm (157-399); Red Blood Count 4.69 10^6/uL (3.85-5.65); Red Cell Distribution Width 12.8 % (12.1-15.1); White Blood Count 10.24 10^3/uL (3.29-11.43)
[2024-08-13 10:00] LABS: Alanine Aminotransferase 18 U/L (0-41); Albumin Level 3.9 g/dL (3.5-5.2); Alkaline Phosphatase 112 U/L (40-130); Anion Gap 13.3 (5-19); Aspartate Amino Transferase 18 U/L (0-40); Blood Urea Nitrogen 21 mg/dL (6-20); Calcium 8.7 mg/dL (8.5-10.5); Carbon Dioxide 27 mmol/L (22-29); Chloride 103 mmol/L (98-107); Creatinine Clr Calc Pharmacy 163.4253; Globulin 2.2 g/dL (1.3-4.6); Glomerular Filtration Rate 116.7 mL/min (90-130); Glucose 212 mg/dL (65-115); Osmolality Calculated 299 mOsm/kg (285-295); Potassium 3.3 mmol/L (3.5-5.1); Sodium 140 mmol/L (136-145); Total Bilirubin 0.4 mg/dL (0.15-1.2); Total Protein 6.1 g/dL (6.6-8.7)
[2024-08-13] MEDS: loratadine 10 mg Tablet PO (10:44)
[2024-08-13] MEDS: acetaminophen 325 mg Tablet 650 MG PO (10:45)
[2024-08-13] MEDS: sodium chloride 0.9% 250 ML 75 ML IV (10:51)
[2024-08-13] MEDS: SODIUM CHLORIDE 0.9% IV (11:13)
[2024-08-13] MEDS: TRASTUZUMAB ANNS IV (11:13)
[2024-08-13 12:00] VITALS: BP 116/66; PULSE 52; RESP 16; TEMP 36.2; O2SAT 93
[2024-09-03 09:36] LABS: Basophils # 0.1 10^3/uL (0.0-0.1); Basophils % 0.7 %; Eosinophils # 0.2 10^3/uL (0.0-0.8); Eosinophils % 2.7 %; Hematocrit 47.2 % (37-53); Lymphocytes # 1.6 10^3/uL (0.8-4.8); Lymphocytes % 23.1 %; Mean Corpuscular HGB Conc 34.5 g/dL (30-55); Mean Corpuscular Hemoglobin 32.8 pg (27-33); Mean Platelet Volume 10.2 fL (7.4-10.4); Monocytes # 0.7 10^3/uL (0.2-0.9); Monocytes % 9.6 %; Neutrophils # 4.52 10^3/uL (1.8-7.7); Neutrophils % 63.6 %; Nucleated Red Blood Cells % 0 %; Platelet Count 199 10^3/cmm (157-399); Red Blood Count 4.97 10^6/uL (3.85-5.65); Red Cell Distribution Width 12.3 % (12.1-15.1)
[2024-09-03 09:50] LABS: Alanine Aminotransferase 22 U/L (0-41); Albumin Level 3.9 g/dL (3.5-5.2); Alkaline Phosphatase 110 U/L (40-130); Anion Gap 14.6 (5-19); Aspartate Amino Transferase 20 U/L (0-40); Blood Urea Nitrogen 15 mg/dL (6-20); Calcium 8.8 mg/dL (8.5-10.5); Carbon Dioxide 26 mmol/L (22-29); Chloride 102 mmol/L (98-107); Creatinine Clr Calc Pharmacy 163.4253; Globulin 2.1 g/dL (1.3-4.6); Glomerular Filtration Rate 116.7 mL/min (90-130); Glucose 118 mg/dL (65-115); Osmolality Calculated 290 mOsm/kg (285-295); Potassium 3.6 mmol/L (3.5-5.1); Sodium 139 mmol/L (136-145); Total Bilirubin 0.4 mg/dL (0.15-1.2)
[2024-09-03] MEDS: acetaminophen 325 mg Tablet 650 MG PO (10:54)
[2024-09-03] MEDS: loratadine 10 mg Tablet PO (10:54)
[2024-09-03] MEDS: sodium chloride 0.9% 250 ML 75 ML IV (10:55)
[2024-09-03] MEDS: TRASTUZUMAB ANNS IV (11:24)
[2024-09-03] MEDS: SODIUM CHLORIDE 0.9% IV (11:24)
[2024-09-03 12:00] VITALS: BP 124/74; PULSE 60; RESP 18; TEMP 36.4; O2SAT 98
[2024-09-03 12:20] VITALS: BP 175/94; PULSE 55; RESP 14; TEMP 36.7; O2SAT 95
== END 2024-09-03 23:59 | disposition home or self-care (01) ==
PROVIDERS: Internal Medicine Medical Oncology; Nurse Practitioner Family; PCP Internal Medicine; Visit Provider Internal Medicine Hematology & Oncology
DX: Z53.9 Procedure and treatment not carried out, unspecified reason (principal); Z51.12 Encounter for antineoplastic immunotherapy; C15.5 Malignant neoplasm of lower third of esophagus; Z79.899 Other long term (current) drug therapy
CPT/HCPCS: 80053; 85025; 96413; 99214; J7050; Q5117

== ENCOUNTER 2024-09-24 08:04 | Oncology outpatient (recurring) (ONCR) | payer MEDICARE, BC, SELFPAY ==
[2024-09-24 08:24] LABS: Basophils # 0.1 10^3/uL (0.0-0.1); Basophils % 0.6 %; Eosinophils # 0.2 10^3/uL (0.0-0.8); Eosinophils % 2.6 %; Hematocrit 50.2 % (37-53); Lymphocytes # 1.8 10^3/uL (0.8-4.8); Lymphocytes % 21.6 %; Mean Corpuscular HGB Conc 34.9 g/dL (30-55); Mean Corpuscular Hemoglobin 33.5 pg (27-33); Mean Corpuscular Volume 96.2 fl (82-101); Monocytes # 0.8 10^3/uL (0.2-0.9); Monocytes % 9.4 %; Neutrophils # 5.38 10^3/uL (1.8-7.7); Neutrophils % 65.3 %; Nucleated Red Blood Cells % 0 %; Platelet Count 205 10^3/cmm (157-399); Red Blood Count 5.22 10^6/uL (3.85-5.65); Red Cell Distribution Width 12.6 % (12.1-15.1); White Blood Count 8.23 10^3/uL (3.29-11.43)
[2024-09-24] MEDS: loratadine 10 mg Tablet PO (09:29)
[2024-09-24] MEDS: sodium chloride 0.9% 250 ML 75 ML IV (09:29)
[2024-09-24] MEDS: acetaminophen 325 mg Tablet 650 MG PO (09:29)
[2024-09-24] MEDS: TRASTUZUMAB ANNS IV (10:09)
[2024-09-24] MEDS: SODIUM CHLORIDE 0.9% IV (10:09)
[2024-09-24 10:58] VITALS: BP 143/86; PULSE 64; TEMP 35.9; O2SAT 95
== END 2024-10-04 23:59 | disposition home or self-care (01) ==
PROVIDERS: Nurse Practitioner Family; PCP Internal Medicine; Visit Provider Internal Medicine Hematology & Oncology
DX: Z51.12 Encounter for antineoplastic immunotherapy (principal); Z51.11 Encounter for antineoplastic chemotherapy; C15.5 Malignant neoplasm of lower third of esophagus; Z92.3 Personal history of irradiation; Z95.828 Presence of other vascular implants and grafts; Z79.899 Other long term (current) drug therapy
CPT/HCPCS: 85025; 96413; 99214; J7050; Q5117

== ENCOUNTER 2024-10-15 08:38 | Oncology outpatient (recurring) (ONCR) | payer MEDICARE, BC, SELFPAY ==
[2024-10-15 09:02] LABS: Basophils # 0.1 10^3/uL (0.0-0.1); Basophils % 0.5 %; Eosinophils # 0.1 10^3/uL (0.0-0.8); Eosinophils % 1.2 %; Hematocrit 45.4 % (37-53); Lymphocytes # 1.4 10^3/uL (0.8-4.8); Lymphocytes % 14.5 %; Mean Corpuscular HGB Conc 34.8 g/dL (30-55); Mean Corpuscular Hemoglobin 32.9 pg (27-33); Mean Corpuscular Volume 94.6 fl (82-101); Mean Platelet Volume 10.1 fL (7.4-10.4); Monocytes # 0.8 10^3/uL (0.2-0.9); Monocytes % 8.2 %; Neutrophils # 7.28 10^3/uL (1.8-7.7); Neutrophils % 75.2 %; Nucleated Red Blood Cells % 0 %; Platelet Count 195 10^3/cmm (157-399); Red Cell Distribution Width 12.4 % (12.1-15.1); White Blood Count 9.68 10^3/uL (3.29-11.43)
[2024-10-15 09:13] LABS: Alanine Aminotransferase 23 U/L (0-41); Albumin Level 3.8 g/dL (3.5-5.2); Alkaline Phosphatase 103 U/L (40-130); Anion Gap 14.5 (5-19); Aspartate Amino Transferase 20 U/L (0-40); Blood Urea Nitrogen 15 mg/dL (6-20); Calcium 8.5 mg/dL (8.5-10.5); Carbon Dioxide 28 mmol/L (22-29); Chloride 99 mmol/L (98-107); Globulin 2.3 g/dL (1.3-4.6); Glomerular Filtration Rate 139.4 mL/min (90-130); Glucose 213 mg/dL (65-115); Osmolality Calculated 293 mOsm/kg (285-295); Potassium 3.5 mmol/L (3.5-5.1); Sodium 138 mmol/L (136-145); Total Bilirubin 0.5 mg/dL (0.15-1.2); Total Protein 6.1 g/dL (6.6-8.7)
[2024-10-15] MEDS: loratadine 10 mg Tablet PO (10:39)
[2024-10-15] MEDS: acetaminophen 325 mg Tablet 650 MG PO (10:39)
[2024-10-15] MEDS: ipratropium-albuterol 3 mL Neb INHALATION (10:39)
[2024-10-15] MEDS: sodium chloride 0.9% 250 ML 75 ML IV (10:40)
[2024-10-15] MEDS: SODIUM CHLORIDE 0.9% IV (11:06)
[2024-10-15] MEDS: TRASTUZUMAB ANNS IV (11:06)
[2024-10-15 12:05] VITALS: BP 126/80; PULSE 62; RESP 17; TEMP 36.4; O2SAT 94
== END 2024-11-01 23:59 | disposition home or self-care (01) ==
PROVIDERS: PCP Internal Medicine; Visit Provider Internal Medicine Medical Oncology
DX: Z51.12 Encounter for antineoplastic immunotherapy (principal); Z51.11 Encounter for antineoplastic chemotherapy; C15.5 Malignant neoplasm of lower third of esophagus; M54.9 Dorsalgia, unspecified; M25.512 Pain in left shoulder; M25.511 Pain in right shoulder; R07.81 Pleurodynia; J06.9 Acute upper respiratory infection, unspecified; Z92.3 Personal history of irradiation; Z95.828 Presence of other vascular implants and grafts; Z79.899 Other long term (current) drug therapy; Z90.49 Acquired absence of other specified parts of digestive tract
CPT/HCPCS: 80053; 85025; 96413; 99214; J7050; Q5117

== ENCOUNTER 2024-11-19 07:45 | Oncology outpatient (recurring) (ONCR) | payer MEDICARE, BC, SELFPAY ==
[2024-11-11 12:50] LABS: Basophils # 0.1 10^3/uL (0.0-0.1); Basophils % 0.4 %; Eosinophils # 0.2 10^3/uL (0.0-0.8); Eosinophils % 1.1 %; Hematocrit 47.5 % (37-53); Lymphocytes # 1.5 10^3/uL (0.8-4.8); Lymphocytes % 9.4 %; Mean Corpuscular HGB Conc 34.9 g/dL (30-55); Mean Corpuscular Volume 94.4 fl (82-101); Mean Platelet Volume 10.3 fL (7.4-10.4); Monocytes % 6.3 %; Neutrophils # 13.25 10^3/uL (1.8-7.7); Neutrophils % 82.4 %; Nucleated Red Blood Cells % 0 %; Platelet Count 224 10^3/cmm (157-399); Red Blood Count 5.03 10^6/uL (3.85-5.65); Red Cell Distribution Width 12.8 % (12.1-15.1); White Blood Count 16.08 10^3/uL (3.29-11.43)
[2024-11-11 13:16] LABS: Alanine Aminotransferase 19 U/L (0-41); Albumin Level 3.9 g/dL (3.5-5.2); Alkaline Phosphatase 92 U/L (40-130); Anion Gap 13.7 (5-19); Aspartate Amino Transferase 15 U/L (0-40); Blood Urea Nitrogen 21 mg/dL (6-20); Calcium 8.7 mg/dL (8.5-10.5); Carbon Dioxide 28 mmol/L (22-29); Chloride 100 mmol/L (98-107); Creatinine Clr Calc Pharmacy 187.4872; Globulin 2.3 g/dL (1.3-4.6); Glomerular Filtration Rate 139.4 mL/min (90-130); Glucose 172 mg/dL (65-115); Osmolality Calculated 293 mOsm/kg (285-295); Potassium 3.7 mmol/L (3.5-5.1); Sodium 138 mmol/L (136-145); Total Bilirubin 0.7 mg/dL (0.15-1.2); Total Protein 6.2 g/dL (6.6-8.7)
[2024-11-19 08:14] LABS: Basophils # 0.1 10^3/uL (0.0-0.1); Basophils % 0.4 %; Eosinophils # 0.2 10^3/uL (0.0-0.8); Eosinophils % 1.8 %; Hematocrit 44.8 % (37-53); Lymphocytes # 1.2 10^3/uL (0.8-4.8); Lymphocytes % 9.8 %; Mean Platelet Volume 9.7 fL (7.4-10.4); Monocytes # 1.1 10^3/uL (0.2-0.9); Neutrophils % 78.7 %; Nucleated Red Blood Cells % 0 %; Platelet Count 261 10^3/cmm (157-399); Red Blood Count 4.62 10^6/uL (3.85-5.65); Red Cell Distribution Width 12.5 % (12.1-15.1); White Blood Count 12.45 10^3/uL (3.29-11.43)
[2024-11-19 08:23] VITALS: BP 135/78; PULSE 70; RESP 17; TEMP 35.7; O2SAT 96
[2024-11-19 08:31] LABS: Alanine Aminotransferase 14 U/L (0-41); Albumin Level 3.7 g/dL (3.5-5.2); Alkaline Phosphatase 82 U/L (40-130); Anion Gap 13.9 (5-19); Aspartate Amino Transferase 10 U/L (0-40); Blood Urea Nitrogen 14 mg/dL (6-20); Calcium 8.9 mg/dL (8.5-10.5); Carbon Dioxide 28 mmol/L (22-29); Chloride 100 mmol/L (98-107); Creatinine Clr Calc Pharmacy 158.7902; Globulin 3.1 g/dL (1.3-4.6); Glomerular Filtration Rate 116.2 mL/min (90-130); Glucose 130 mg/dL (65-115); Osmolality Calculated 288 mOsm/kg (285-295); Potassium 3.9 mmol/L (3.5-5.1); Sodium 138 mmol/L (136-145); Total Bilirubin 0.4 mg/dL (0.15-1.2); Total Protein 6.8 g/dL (6.6-8.7)
[2024-11-19] MEDS: sodium chloride 0.9% 250 ML 75 ML IV (10:44)
[2024-11-19] MEDS: dexamethasone 4 mg/mL INJ 5 mL 12 MG IVP (10:45)
[2024-11-19] MEDS: palonosetron 0.25 mg/5 mL SDV IVP (10:48)
[2024-11-19] MEDS: nivolumab 240 MG in sodium chloride 0.9% 250 ML 548 MG IV (10:59)
[2024-11-19] MEDS: SODIUM CHLORIDE 0.9% IV (11:41)
[2024-11-19] MEDS: TRASTUZUMAB ANNS IV (11:41)
[2024-11-19] MEDS: dextrose 5% 250 ML 75 ML IV (13:59)
[2024-11-19] MEDS: DEXTROSE 5% IV (13:59)
[2024-11-19] MEDS: LEUCOVORIN IV (13:59)
[2024-11-19] MEDS: fluorouraciL 50 mg/ml MDV 100 mL 950 MG IVP (16:07)
[2024-11-19] MEDS: SODIUM CHLORIDE IV (16:07)
[2024-11-19] MEDS: FLUOROURACIL IV (16:07)
[2024-11-19] MEDS: ELASTOMERIC PUMP PUMP IV (16:07)
[2024-11-19 16:43] VITALS: BP 168/68; PULSE 81; RESP 18; TEMP 37; O2SAT 98
[2024-11-19 16:51] VITALS: BP 161/81; PULSE 78; RESP 18; TEMP 36; O2SAT 97
== END 2024-11-19 23:59 | disposition home or self-care (01) ==
PROVIDERS: Nurse Practitioner; PCP Internal Medicine; Visit Provider Internal Medicine Medical Oncology
DX: Z51.11 Encounter for antineoplastic chemotherapy (principal); Z51.12 Encounter for antineoplastic immunotherapy; C15.5 Malignant neoplasm of lower third of esophagus; C78.39 Secondary malignant neoplasm of other respiratory organs; Z79.631 Long term (current) use of antimetabolite agent; Z79.620 Long term (current) use of immunosuppressive biologic; Z79.2 Long term (current) use of antibiotics; Z79.899 Other long term (current) drug therapy
CPT/HCPCS: 36591; 71046; 80053; 84443; 85025; 96368; 96375; 96411; 96413; 96415; 96416; 96417; 99214; 99215; A4222; J0640; J1100; J2469; J7050; J7060; J9190; J9263; J9299; Q5117

== ENCOUNTER 2024-11-26 07:45 | Oncology outpatient (recurring) (ONCR) | payer MEDICARE, BC, SELFPAY ==
[2024-11-22 08:44] VITALS: BP 154/88; PULSE 70; RESP 17; TEMP 36.2; O2SAT 91
[2024-11-22] MEDS: sodium chloride 0.9% 1,000 ML 999 ML IV (09:07)
--- NOTE | 2024-11-22 09:15 | PC.PHAR ---
NARCOTIC CHOICE: MR SALDIVAR IN THE CLINIC TODAY IN SEVERE PAIN. RECENT OPERATION ON ESOPHAGUS LIMITS HIS ABILITY TO SWALLOW PILLS. PATIENT REQUESTS WE NOT USE MORPHINE HE'S HAD A NEGATIVE REACTION TO THAT IN THE PAST. PATIENT'S REPORTS HE'S HAD DILAUDID IN THE PAST SO WE WILL GO THAT ROUTE. I EXPRESSED TO JEMAL THAT DILAUDID ROUGHLY 10X MORE POTENT THAN MORPHINE SO START SMALL.
[2024-11-22] MEDS: HYDROmorphone 0.5 MG/0.5 ML INJ 0.4 MG IVP (09:37)
[2024-11-22] MEDS: ipratropium-albuterol 3 mL Neb INHALATION (09:37)
[2024-11-22 09:48] VITALS: BP 160/82; PULSE 74; RESP 16; TEMP 36.6; O2SAT 97
[2024-11-22 09:53] VITALS: BP 151/75; RESP 16; O2SAT 90
[2024-11-22 10:19] VITALS: BP 161/87; PULSE 73; O2SAT 92
[2024-11-22 10:29] VITALS: O2SAT 94
[2024-11-22 11:34] LABS: Basophils % 0.1 %; Eosinophils # 0.1 10^3/uL (0.0-0.8); Eosinophils % 0.8 %; Lymphocytes # 0.8 10^3/uL (0.8-4.8); Lymphocytes % 7.9 %; Mean Corpuscular HGB Conc 34.7 g/dL (30-55); Mean Corpuscular Hemoglobin 32.9 pg (27-33); Mean Corpuscular Volume 94.9 fl (82-101); Mean Platelet Volume 9.2 fL (7.4-10.4); Monocytes # 0.3 10^3/uL (0.2-0.9); Monocytes % 2.5 %; Neutrophils # 9.29 10^3/uL (1.8-7.7); Neutrophils % 88.2 %; Nucleated Red Blood Cells % 0 %; Platelet Count 233 10^3/cmm (157-399); Red Blood Count 4.53 10^6/uL (3.85-5.65); Red Cell Distribution Width 12.1 % (12.1-15.1); White Blood Count 10.52 10^3/uL (3.29-11.43)
[2024-11-22 11:45] VITALS: BP 137/88; PULSE 71; RESP 17; TEMP 36.3; O2SAT 96
[2024-11-22 11:53] LABS: Influenza A NEGATIVE (Negative); Influenza B NEGATIVE (Negative); Respiratory Syncytial Virus Ce NEGATIVE (Negative); SARS-CoV-2 PCR NEGATIVE (Negative)
[2024-11-22 11:58] LABS: Alanine Aminotransferase 16 U/L (0-41); Albumin Level 3.5 g/dL (3.5-5.2); Alkaline Phosphatase 66 U/L (40-130); Anion Gap 12.1 (5-19); Aspartate Amino Transferase 14 U/L (0-40); Blood Urea Nitrogen 16 mg/dL (6-20); Calcium 8.3 mg/dL (8.5-10.5); Carbon Dioxide 29 mmol/L (22-29); Chloride 96 mmol/L (98-107); Globulin 2.7 g/dL (1.3-4.6); Glomerular Filtration Rate 171.4 mL/min (90-130); Glucose 154 mg/dL (65-115); Osmolality Calculated 280 mOsm/kg (285-295); Potassium 4.1 mmol/L (3.5-5.1); Sodium 133 mmol/L (136-145); Total Bilirubin 0.8 mg/dL (0.15-1.2); Total Protein 6.2 g/dL (6.6-8.7)
--- NOTE | 2024-11-22 12:15 | PC.NURSE ---
Patient taken to the Emergency Department and checked in via wheelchair under the instruction of Mary Sheehan.
[2024-11-26 07:52] LABS: Basophils % 0.4 %; Eosinophils # 0.2 10^3/uL (0.0-0.8); Eosinophils % 1.9 %; Hematocrit 44.3 % (37-53); Lymphocytes # 1.1 10^3/uL (0.8-4.8); Lymphocytes % 10.5 %; Mean Corpuscular HGB Conc 34.5 g/dL (30-55); Mean Corpuscular Hemoglobin 32.3 pg (27-33); Mean Corpuscular Volume 93.7 fl (82-101); Mean Platelet Volume 9.5 fL (7.4-10.4); Monocytes # 0.7 10^3/uL (0.2-0.9); Monocytes % 6.1 %; Neutrophils # 8.63 10^3/uL (1.8-7.7); Neutrophils % 80.6 %; Nucleated Red Blood Cells % 0 %; Platelet Count 239 10^3/cmm (157-399); Red Blood Count 4.73 10^6/uL (3.85-5.65); Red Cell Distribution Width 11.9 % (12.1-15.1); White Blood Count 10.69 10^3/uL (3.29-11.43)
[2024-11-26 08:12] LABS: Alanine Aminotransferase 13 U/L (0-41); Albumin Level 3.7 g/dL (3.5-5.2); Alkaline Phosphatase 78 U/L (40-130); Aspartate Amino Transferase 12 U/L (0-40); Blood Urea Nitrogen 15 mg/dL (6-20); Calcium 8.6 mg/dL (8.5-10.5); Carbon Dioxide 29 mmol/L (22-29); Chloride 96 mmol/L (98-107); Creatinine Clr Calc Pharmacy 135.2047; Globulin 3.2 g/dL (1.3-4.6); Glomerular Filtration Rate 99.6 mL/min (90-130); Glucose 109 mg/dL (65-115); Osmolality Calculated 275 mOsm/kg (285-295); Sodium 132 mmol/L (136-145); Total Bilirubin 0.4 mg/dL (0.15-1.2); Total Protein 6.9 g/dL (6.6-8.7)
[2024-11-26 08:29] LABS: Anion Gap 11.2 (5-19); Potassium 4.2 mmol/L (3.5-5.1)
[2024-11-26] MEDS: sodium chloride 0.9% 500 ML 999 ML IV (08:44)
== END 2024-12-02 23:59 | disposition home or self-care (01) ==
PROVIDERS: Nurse Practitioner Family; PCP Internal Medicine; Visit Provider Internal Medicine Medical Oncology
DX: C15.5 Malignant neoplasm of lower third of esophagus (principal); D50.8 Other iron deficiency anemias; R53.81 Other malaise; Z90.49 Acquired absence of other specified parts of digestive tract; Z92.3 Personal history of irradiation; Z92.21 Personal history of antineoplastic chemotherapy; Z51.12 Encounter for antineoplastic immunotherapy; Z51.11 Encounter for antineoplastic chemotherapy; M54.9 Dorsalgia, unspecified; M25.512 Pain in left shoulder; M25.511 Pain in right shoulder; R07.81 Pleurodynia; J06.9 Acute upper respiratory infection, unspecified; Z95.828 Presence of other vascular implants and grafts; Z79.899 Other long term (current) drug therapy
CPT/HCPCS: 36591; 80053; 85025; 87637; 96360; 96361; 96375; 99214; J1171; J7030; J7040; J9999

== ENCOUNTER 2024-12-03 07:41 | Oncology outpatient (recurring) (ONCR) | payer MEDICARE, BC, SELFPAY ==
[2024-12-03 08:56] LABS: Basophils % 0.5 %; Eosinophils # 0.3 10^3/uL (0.0-0.8); Eosinophils % 4.3 %; Lymphocytes # 0.9 10^3/uL (0.8-4.8); Mean Corpuscular HGB Conc 34.3 g/dL (30-55); Mean Corpuscular Hemoglobin 32.7 pg (27-33); Mean Corpuscular Volume 95.5 fl (82-101); Mean Platelet Volume 8.9 fL (7.4-10.4); Monocytes # 1.1 10^3/uL (0.2-0.9); Monocytes % 19.2 %; Neutrophils % 60.5 %; Nucleated Red Blood Cells % 0 %; Platelet Count 332 10^3/cmm (157-399); Red Cell Distribution Width 12.5 % (12.1-15.1); White Blood Count 5.79 10^3/uL (3.29-11.43)
[2024-12-03 09:11] LABS: Alanine Aminotransferase 13 U/L (0-41); Albumin Level 3.4 g/dL (3.5-5.2); Alkaline Phosphatase 80 U/L (40-130); Anion Gap 12.7 (5-19); Aspartate Amino Transferase 12 U/L (0-40); Blood Urea Nitrogen 13 mg/dL (6-20); Calcium 8.9 mg/dL (8.5-10.5); Carbon Dioxide 29 mmol/L (22-29); Chloride 94 mmol/L (98-107); Creatinine Clr Calc Pharmacy 152.4282; Globulin 2.9 g/dL (1.3-4.6); Glomerular Filtration Rate 116.2 mL/min (90-130); Glucose 121 mg/dL (65-115); Osmolality Calculated 275 mOsm/kg (285-295); Potassium 3.7 mmol/L (3.5-5.1); Sodium 132 mmol/L (136-145); Total Bilirubin 0.4 mg/dL (0.15-1.2); Total Protein 6.3 g/dL (6.6-8.7)
[2024-12-03 09:38] LABS: Thyroid Stimulating Hormone 9.31 uIU/mL (0.27-4.20)
[2024-12-03] MEDS: sodium chloride 0.9% 250 ML 75 ML IV (10:05)
[2024-12-03] MEDS: nivolumab 240 MG in sodium chloride 0.9% 250 ML 548 MG IV (10:13)
[2024-12-03] MEDS: dexamethasone 4 mg/mL INJ 5 mL 12 MG IVP (10:15)
[2024-12-03] MEDS: SODIUM CHLORIDE 0.9% IV (10:55)
[2024-12-03] MEDS: TRASTUZUMAB ANNS IV (10:55)
[2024-12-03] MEDS: dextrose 5% 250 ML 75 ML IV (11:47)
[2024-12-03] MEDS: leucovorin 940 MG in dextrose 5% 250 ML 125 MG IV (11:48)
[2024-12-03] MEDS: OXALIPLATIN IV (11:49)
[2024-12-03] MEDS: DEXTROSE 5% IV (11:49)
[2024-12-03] MEDS: ipratropium-albuterol 3 mL Neb INHALATION (13:30)
[2024-12-03] MEDS: ibuprofen 800 mg tablet PO (13:37)
[2024-12-03] MEDS: fluorouraciL 50 mg/ml MDV 100 mL 950 MG IVP (14:16)
[2024-12-03] MEDS: ELASTOMERIC PUMP PUMP IV (14:29)
[2024-12-03] MEDS: FLUOROURACIL IV (14:29)
[2024-12-03] MEDS: SODIUM CHLORIDE IV (14:29)
[2024-12-03 14:45] VITALS: BP 139/71; PULSE 67; RESP 17; TEMP 35.9; O2SAT 94
[2024-12-03 15:08] LABS: Free T4 Free Thyroxine 1.12 ng/dL (0.82-1.77); T3 Free 1.7 PG/ML (2.0-4.4)
== END 2024-12-03 23:59 | disposition home or self-care (01) ==
PROVIDERS: Nurse Practitioner Family; PCP Internal Medicine; Visit Provider Internal Medicine Medical Oncology
DX: Z51.12 Encounter for antineoplastic immunotherapy (principal); Z51.11 Encounter for antineoplastic chemotherapy; C15.5 Malignant neoplasm of lower third of esophagus; E87.1 Hypo-osmolality and hyponatremia; Z79.631 Long term (current) use of antimetabolite agent; Z90.49 Acquired absence of other specified parts of digestive tract; Z92.3 Personal history of irradiation
CPT/HCPCS: 80053; 84439; 84443; 84481; 85025; 96365; 96366; 96375; 96409; 96411; 96413; 96415; 96416; 96417; 99214; J0640; J1100; J7050; J7060; J9190; J9263; J9299; J9999; Q5117

== ENCOUNTER 2024-12-05 12:46 | Oncology outpatient (recurring) (ONCR) | payer MEDICARE, BC, SELFPAY ==
[2024-12-05] MEDS: sodium chloride 0.9% 1,000 ML 999 ML IV (13:08)
[2024-12-05] MEDS: ibuprofen 200 mg Tablet 800 MG PO (14:31)
[2024-12-05] MEDS: ipratropium-albuterol 3 mL Neb INHALATION (14:31)
[2024-12-05 14:51] VITALS: BP 138/81; PULSE 54; RESP 18; TEMP 37; O2SAT 92
== END 2025-01-01 23:59 | disposition home or self-care (01) ==
PROVIDERS: PCP Internal Medicine; Visit Provider Internal Medicine
DX: C15.5 Malignant neoplasm of lower third of esophagus (principal); Z79.899 Other long term (current) drug therapy; Z45.1 Encounter for adjustment and management of infusion pump
CPT/HCPCS: 96360; 96523; J7030; J9999